=== PATIENT | female | born 2000 | race Caucasian/White ===

== ENCOUNTER 2018-10-23 09:00 | Outpatient (RCR) | payer MEDICARE, MEDICAID, SELFPAY ==
--- NOTE | 2018-10-23 09:10 | BH.SGPN.GN ---
Behaviors/Verbalizations/Mental Status: []Client alert and oriented, casual dress, hygiene tended to. Eye contact fair. Motor activity appropriate. Speech within normal limits. Affect constricted, mood anxious and depressed. Thoughts linear, logical, no signs of hallucinations or delusions. Reviewed client?s symptom tracker, no signs of suicidal ideation, plan, or intent as of today. Client Response/Progress/Benefit: []Pt was a passive participant in group discussion, attentive AEB good eye contact and nodding throughout. Pt elected to not share anything this morning, given it is pt's first day in PHP tx. Recommended to continue PHP tx to decrease anxiety, increase healthy coping, and prevent decompensation. Narrative Note: []
--- NOTE | 2018-10-23 10:15 | BH.SGPN.GN ---
Behaviors/Verbalizations/Mental Status: []Client alert and oriented, neatly dressed and groomed. Eye contact poor at the beginning and then good. Motor activity appropriate. Speech soft. Affect flat, mood anxious. Thoughts linear, logical, no signs of hallucinations or delusions. Client Response/Progress/Benefit: []Client responded well to session, taking notes and passive participant. Client nodded in agreement that viewing situations as impossible can negatively impact one?s mental health. Client appeared to connect with fixed thinking as she was raising her hand for having experienced examples of fixed thoughts. Client also raised her hand when the group discussed unrealistic expectations of self as an example of fixed thinking. Client stated that if one can challenge fixed thinking it can positively impact mental health and increase self-esteem. Client declined to share her fixed thoughts with the group, but she wrote them down. Client engaged in the group activity and the group did not complete the activity during second group. At first client did not want to participate, but then became more comfortable with peers. Client appeared to benefit from gaining awareness how fixed thinking can prevent progress and from connecting with others. No progress as it is client?s first day. However, she did show strides by challenging herself to engage in the group activity despite anxiety.
--- NOTE | 2018-10-23 11:16 | BH.SGPN.GN ---
Behaviors/Verbalizations/Mental Status: [Client maintained fair to good eye contact, casually dressed and appropriate grooming, motor activity appropriate, speech normal rate and tone, mood dysthymic, anxious, affect flat, thoughts linear, logical, no evidence of delusions or hallucinations.] Client Response/Progress/Benefit: [Client attentive and engaged in both discussion and growth mindset reflection activity, though mostly taking on an observatory role. Client providing limited input though taking notes throughout. Client worked with the group on identifying self-reflection questions and strategies to reframe fixed mindset thoughts. Participated in reflection on how fixed mindset thoughts the group experienced in the activity impacted ability to complete the task at hand. She worked with group to identify important components of developing a growth mindset to challenge such thoughts and indicated that this can help challenge unrealistic expectations and improve self-esteem, as well as reduce anxiety. Client used cognitive restructuring to reframe previously identified fixed thoughts. Client replaced fixed thought of ?I have to have perfect grades? with growth mindset thought of ?I am allowed to not be perfect and don?t need to have perfect grades to be successful?. Client benefitted from discussing strategies to promote a growth mindset in daily life. Progress noted in client ability to successfully replace fixed thoughts and participate in group despite it being her first day. Continued PHP tx to prevent decompensation, increase effective communication, and continue to work on reducing sx of anxiety.] ] Narrative Note: []
--- NOTE | 2018-10-23 15:08 | BH.MDN_ITS ---
Multi-Disciplinary Note - Note 45-min Individual Time Started:: 12:32 Date: 10/23/18 Purpose of session/treatment goals addressed:: The purpose of this session was to gather information on client's current stressors, symptoms, and treatment goals. Another goal was to build rapport and give homework. Eye Contact:: Good Motor Activity:: Appropriate Appearance:: Neat Speech:: Other - slow speech Mood:: Anxious Affect:: Congruent Thoughts:: Linear, Logical, No evidence of hallucinations/delusions noted Staff Interventions:: Therapist used active listening and open-ended questions to explore client's current stressors, symptoms, and supports. Therapist used strengths perspective to build rapport and help client identify positives and personal resilience factors. Therapist provided emotional validation and explored techniques that have helped in the past. Therapist provided psychoeducation on anxiety maintenance cycles and symptoms. Therapist assisted client in identifying overall treatment goals. Therapist gave client homework to read an article about anxiety and highlight warning signs that relate to client. Client Response:: Client responded well to session, smiling that she was able to make it through today. Client shared I didn't get sleep last night because I was anxious in regard to starting PHP today. However, client shared today wasn't as bad as I thought? I liked it. Client reported she was able to use self-talk and positive thinking to help her make it through group. Client stated her friend referred her to [facility] due to anxiety, panic, and depression. Client shared she has struggled with mental health symptoms since 2007, but recently client has felt more anxious. Client's anxiety is impacting her educational, social, and familial functioning. Client shared she is unable to drive because of her anxiety. Client reported she had to leave school because of her anxiety and unrealistic expectations of herself. Client stated she would push herself too hard to get perfect grades which resulted in high anxiety and feeling overwhelmed. Client stated, ?I?m not good at balancing things.? Client endorses ruminating thoughts, increased sleep, irritability, feeling on edge, somatic symptoms, and panic attacks. Client shared when she becomes too overwhelmed and anxious she shuts down and avoids. Client stated she has had suicidal thoughts in the past due to bullying, but she does not currently have any suicidal thoughts. Client shared she wants to work on managing her anxiety as, per client's report, I only have like two coping skills and they don't always work. Client stated she has a good support network, but client would like to improve her relationship with her parents. Client reported because of her anxiety, client has been irritable and taking things out on them. Client receptive to homework and increasing self-awareness to better manage symptoms. Risks/Concerns:: Client denies any suicidal ideation, plan, and intent as of 10/23/18. Furture oriented and has supports. Progress Toward Goals/Plan:: No progress noted yet as it is client?s first day in PHP. However, client appears motivated to engage in treatment and reported ?today was not as bad as I thought it would be.? Client shared she has a history of anxiety, panic, social phobia, and depression. Client stated her anxiety is what made client seek services at behavioral health. Client currently endorses negative thinking, panic attacks, headaches from muscle tension, increased sleep, and avoidance. Client receptive to homework. Client?s identified her treatment goals to be learning healthy coping skills, reducing anxiety and irritability, and finding ?balance? in her life. Client to continue PHP to prevent decompensation and promote mood stability. Time Stopped:: 13:15
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
--- NOTE | 2018-10-23 15:09 | BH.MTP ---
[facility] - Patient Information Program Physician:: Jarvis Chung Primary Therapist:: Anabel Mccall - Psychiatric Diagnoses Psychiatric Diagnoses:: SIMÓN F41.1; depression unspecified; social anxiety disorder; borderline personality disorder Diagnosis Code(s):: F 41.1 - Estimated LOS Estimated LOS (in weeks):: 1 Problem/Goal #1 - Problem/Goal #1 Stated Goal:: Client will reduce overall frequency, intensity, and duration of anxiety and anger to improve functioning and relationships. Description of Barriers: Client has some insight to her triggers and symptoms, but reports difficulty recognizing her early warning signs for anxiety, anger, and depression. Client connected with perfectionism traits and shared this has led to overworking herself in the past and fear of failure. Client has a few supports, but she reports often staying at home and she has anxiety about meeting new people. Client is unable to drive due to high anxiety which makes transportation a barrier at times. Client reports issues with anger and difficulty self-regulating her emotions. Client stated when she becomes too anxious she shuts down and becomes quiet. Client stated her parents are supportive, but her family has so much drama which could be an ongoing stressor. Functional Impact: Client is a 18-year-old female with a history of depression, anxiety, and social phobia who was referred to [facility] by a friend and previous [facility] participant due to anxiety symptoms. Client reported her anxiety has been worsening since 03/2018 during which time client dropped out of college. Client shared she was experiencing increased sleep, lack of energy, ruminations, lack of concentration, and frequent absences from class. Client reported she would overload myself and spend hours studying in order to get good grades which resulted in worsening mental health symptoms. At admission, client reported somatic symptoms associated with anxiety such as nausea, tension, and restlessness. Client stated her anxiety also impacts her ability to drive and do things on her own. Per client's report her anxiety reinforces depression and anger. Client stated she will get upset with her parents and lash out at them, which makes client upset with herself. Client also endorsed isolation, avoidance behaviors, and panic attacks at admission. At admission, client's symptoms were hindering her social, educational, and familial functioning as well as her ability to function at her baseline. Goal Relevant Strengths/Supports: Client is kind, intelligent, and motivated to improve her mental health. Client shared her parents can be supportive and she is open to bringing them in for a family session. Client reported she is willing to learn and is receptive to homework. Client has a few close friends that she identifies as mental health supports. Client has been in other mental health programs before, so she has some knowledge of her symptoms and triggers. Client reported she has been able to set boundaries and accomplish personal goals in the past which will help her during treatment. - Objectives Objective #1 Stated Objective: Client will identify 2-3 anxiety and anger triggers and 2 calming coping skills to use when feeling anxious or angry. Interventions: Therapist will help client increase awareness of anxiety and anger triggers and educate client on ways anxiety and anger impact overall health. Therapist will teach client various calming strategies to promote emotional regulation. Therapist will assist client in identifying warning signs and teach client techniques to reduce, remove, or accept stressors to reduce anxiety. Therapist will discuss the importance of self-care, healthy relationships, and boundaries. Discharge Criteria: Client will have accomplished this goal when can report at least 2 triggers for anxiety and anger and state using 2 calming strategies to manage symptoms. Target Date: 10/30/18 Review Date: 10/30/18 Status: open Objective #2 Stated Objective: Client will identify 2-3 cognitive distortions that lead to rumination and learn 2-3 ways to manage these thoughts to better manage anxiety and stress. Interventions: Therapist will provide education on the most common cognitive distortions and teach client the connection between thoughts, emotions, and feelings. Therapist will assist client in identifying, challenging, and replacing dysfunctional thoughts with positive, more realistic thoughts. Therapist will use CBT and DBT techniques to help client gain awareness of thinking errors and learn how to more effectively handle negative thoughts. Discharge Criteria: Client will have accomplished this goal when can identify at least 2 cognitive distortions and at least 2 coping skills to manage negative thoughts. Target Date: 10/30/18 Review Date: 10/30/18 Status: open Problem/Goal #2 - Problem/Goal #2 Stated Goal:: Client will reduce social anxiety and increase communication skills. Description of Barriers: Client has some insight to her triggers and symptoms, but reports difficulty recognizing her early warning signs for anxiety, anger, and depression. Client connected with perfectionism traits and shared this has led to overworking herself in the past and fear of failure. Client has a few supports, but she reports often staying at home and she has anxiety about meeting new people. Client is unable to drive due to high anxiety which makes transportation a barrier at times. Client reports issues with anger and difficulty self-regulating her emotions. Client stated when she becomes too anxious she shuts down and becomes quiet. Client stated her parents are supportive, but her family has so much drama which could be an ongoing stressor. Functional Impact: Client is a 18-year-old female with a history of depression, anxiety, and social phobia who was referred to [facility] by a friend and previous [facility] participant due to anxiety symptoms. Client reported her anxiety has been worsening since 03/2018 during which time client dropped out of college. Client shared she was experiencing increased sleep, lack of energy, ruminations, lack of concentration, and frequent absences from class. Client reported she would overload myself and spend hours studying in order to get good grades which resulted in worsening mental health symptoms. At admission, client reported somatic symptoms associated with anxiety such as nausea, tension, and restlessness. Client stated her anxiety also impacts her ability to drive and do things on her own. Per client's report her anxiety reinforces depression and anger. Client stated she will get upset with her parents and lash out at them, which makes client upset with herself. Client also endorsed isolation, avoidance behaviors, and panic attacks at admission. At admission, client's symptoms were hindering her social, educational, and familial functioning as well as her ability to function at her baseline. Goal Relevant Strengths/Supports: Client is kind, intelligent, and motivated to improve her mental health. Client shared her parents can be supportive and she is open to bringing them in for a family session. Client reported she is willing to learn and is receptive to homework. Client has a few close friends that she identifies as mental health supports. Client has been in other mental health programs before, so she has some knowledge of her symptoms and triggers. Client reported she has been able to set boundaries and accomplish personal goals in the past which will help her during treatment. - Objectives Objective #1 Stated Objective: Client will learn 2-3 strategies to manage anxiety and practice engaging in a conversation with one new person a day. Interventions: Therapist will teach client various calming coping skills to help client self-regulate when experiencing anxiety. Therapist will provide psychoeducation on anxiety and help client see the benefits of engaging in anxiety-provoking situations rather than avoiding them. Therapist will encourage client to have a family session to increase communication. Therapist will help client challenge negative thoughts and learn how to express needs. Discharge Criteria: Client will have accomplished this goal when she can report engaging in a conversation with one new person per day and practicing at coping skills daily. Target Date: 10/30/18 Review Date: 10/30/18 Status: open
--- NOTE | 2018-10-24 09:02 | BH.SGPN.GN ---
Behaviors/Verbalizations/Mental Status: []Client alert and oriented, casually dressed and groomed. Eye contact good. Motor activity appropriate. Speech soft and slow. Affect congruent, mood anxious but relieved. Thoughts linear, logical, no signs of hallucinations or delusions. Reviewed client?s symptom tracker, no risk for suicidal ideation, plan, or intent as of 10/24/18. Client Response/Progress/Benefit: []Client responded well to session, engaged in discussion. Client reports feeling ?a little anxious, but relieved? today as client was able to overcome high anxiety this morning and yesterday. Client shared yesterday was her first day and she was ?terrified? but after being in group she realized that it was not scary and that she enjoyed it. Client?s second mental health win is that she is taking a social media ?detox? while she is in the program. Client shared belief this will help her focus on herself and avoid unnecessary stressors. Client?s current stressor is that she had high anxiety yesterday and this morning about her transportation due to having a bad experience in the past. Client shared she used coloring, journaling, and deep breathing to manage her anxiety and was able to calm herself down. 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 Client appeared to benefit from connecting with peers and reflecting on use of healthy coping skills. Client?s second day in PHP and she appears to be utilizing skills discussed in group and individual sessions. Client to continue PHP to prevent decompensation and reduce anxiety.
--- NOTE | 2018-10-24 11:16 | BH.SGPN.GN ---
Behaviors/Verbalizations/Mental Status: [Client alert and oriented, casual dress, hygiene appropriate. Eye contact fair to good. Motor activity WNL. Speech appropriate rate/tone. Affect flat, mood dysthymic, anxious. Thoughts linear, logical, no signs of hallucinations or delusions. ] Client Response/Progress/Benefit: [Pt engaged throughout session AEB participating in activity, listening to peers suggestions, and providing direction to partner. Client worked collaboratively with group during activity in which group members had to identify positive strategies to overcome the various barriers/obstacles that hindered progress. Client identified personal barriers as: negative outlook, lack of healthy coping skills, and constant worry. Client shared a strategy for overcoming barrier of isolation as setting small goals to increase socialization and avoid triggers. Client shared the barrier she is going to work on is reducing negativity beginning to keep a thought log. Client seemed to benefit from increased repertoire of strategies to help overcome barriers to progress. Recommended continued tx to prevent decompensation, improve healthy coping, and decrease depressive sx.] Narrative Note: []
--- NOTE | 2018-10-24 15:00 | BH.MDN ---
Multi-Disciplinary Note - Note 45-min Individual Time Started:: 12:15 Date: 10/24/18 Purpose of session/treatment goals addressed:: The purpose of this session was to increase awareness of warning signs, symptoms, and triggers for anxiety. Another goal was to learn coping skills to manage emotions and thoughts associated with anxiety. Other topics included: psychoeducation and cognitive distortions. Eye Contact:: Fair Motor Activity:: Appropriate Appearance:: Casual Speech:: Soft, Other - slowed Mood:: Euthymic Affect:: Constricted Thoughts:: Linear, Logical, No evidence of hallucinations/delusions noted Staff Interventions:: Therapist used active listening and open-ended questions to address current stressors, experience with homework, and use of coping skills. Therapist provided psychoeducation on anxiety and used a worksheet to help client increase awareness of warning signs and triggers. Therapist used a scaling tool to help client gain insight to the different levels of intensity in which she feels anxiety and the warning signs for each. Therapist taught client coping skills to use at each level. Therapist taught client about the common cognitive distortions and how thoughts impact mood and behavior. Therapist used strengths perspective to empower client on her use of coping skills. Therapist gave client homework to start a thought log. Client Response:: Client responded well to session, open to meeting with therapist. Client shared she read the article on anxiety and stated it made her feel better because I didn't know some of those things were related to my anxiety. Client engaged in discussion of warning signs and triggers for anxiety. At first client struggled to identify warning signs, but with further assistance and exploration, client was able to. Some of client?s warning signs included feeling sick, sweating, tense muscles, and negative thinking. Client connected with the ABCs (affect, behavior, cognition) of anxiety and used the scaling tool to differentiate between levels of intensity of anxiety. Client able to identify her baseline, moderate, and high anxiety levels. Client receptive to learning and practicing calming strategies. Client shared breathing, 5-senses, and distractions are helpful. Client was interested in learning about thought logs and challenging negative thoughts. Client connected with the different types of distortions and recognized that her thinking patterns directly impact her mood and behaviors. Client shared she often has a lot of perfectionistic type thinking and expectations for herself, which triggers anxiety. Client appeared to connect with maintenance cycles and was able to reflect on a time when she got stuck in the anxiety/perfection maintenance cycle. Client shared ?I get anxious so I overload myself with work and then I feel more anxious.? Client willing to complete a thought log for homework. Risks/Concerns:: Client denies any suicidal ideation, plan, and intent as of 10/24/18. Client continues to be future oriented. Progress Toward Goals/Plan:: Client's second day in PHP and she continues to show motivation to improve her mental health. Client reported this morning she was able to use calming coping skills to manage her anxiety symptoms. Client is highly engaged in group and individual sessions and she is receptive to feedback and homework. Client learned about personal warning signs today, but she struggled to identify them without elicitation. Client continues to endorse perfectionistic core beliefs, anxiety, and irritability. Client would like to have a family session next week. Client to continue PHP to prevent decompensation, increase self-awareness, and reduce anxiety. Time Stopped:: 13:06
--- NOTE | 2018-10-25 09:04 | BH.SGPN.GN ---
Behaviors/Verbalizations/Mental Status: [Eye contact is good. Motor activity is appropriate. Appearance is casual. Speech is an appropriate rate and tone. Mood is anxious, depressed. Affect is flat. Thoughts are linear and logical. No evidence of psychosis. Reviewed daily check in sheet and no reports of suicidal ideations or intent.] Client Response/Progress/Benefit: [Pt was a semi-active participant in group discussion, providing limit input throughout, though attentive AEB good eye contact and nodding throughout. Emotion for today is tired. Reports initially being anxious this morning due to a misunderstanding about her transportation and fears she would not have a ride to group. Pt identified use of catastrophizing. Mental health justin identified as beginning her thought challenge log and noted it was helpful last night. Additional win is spending less time isolating in her room following group on previous date. Pt benefited from supportive and structured group environment. Recommended to continue PHP tx to increase awareness, prevent decompensation, and continue to improve positive coping and anxiety management.] Narrative Note: []
--- NOTE | 2018-10-25 10:15 | BH.SGPN.GN ---
Behaviors/Verbalizations/Mental Status: [] Eye contact is good. Motor activity is appropriate. Appearance is casual. Speech is Appropriate. Mood is anxious. Affect is flat. Thoughts are linear and logical. No evidence of psychosis. Client Response/Progress/Benefit: [] Pt was an active participant in group discussion and activity. Worked together with the group to define conflict which they reported was; two opposing forces, wanting two different outcomes, two different perspectives on same situation, misunderstanding, internal struggles with decisions or emotions, feeling torn, and balancing. Described difference between external conflict and internal conflict. Discussed the benefits of conflict in progressing in relationships and mental health. Pt worked with group to identify barriers to over conflict which included; strong belief in one's perspective or view, miscommunication, one's emotional mood, fear, ramifications, consequences, and negative distortions. Attentive during psycho-education on different types of conflict styles. Pt reports that her conflict style is avoiding and accommodating which increased her anxiety and depressive symptoms. Benefited as she was able to identify and define conflict as well as increase awareness of how conflict style impacts her mental health. Will continue in [facility] to maintain safety, stabilize anxiety, and improve daily functioning. Narrative Note: []
--- NOTE | 2018-10-25 10:15 | BH.SGPN.GN ---
Behaviors/Verbalizations/Mental Status: []Client alert and oriented, neatly dressed and groomed. Eye contact good. Motor activity appropriate. Speech within normal limits. Affect constricted, mood anxious. Thoughts linear, logical, no signs of hallucinations or delusions. Client Response/Progress/Benefit: []Client responded well to session, engaged in discussion and taking notes. Client further processed her conflict resolution style. Client reported she tends to either avoid conflict or accommodate to other people?s wants. Client shared she wants to be more collaborative because her current style leaves client feeling more anxious and depressed. Client was encouraged to practice being collaborative during the active. Client was able to practice asserting her opinion and the group was receptive. Client helped the group identify things that positively and negatively impact conflict resolution. Client agreed with group that not listening to different ideas and shutting down both negatively impact conflict resolution. Client helped the group identify strategies to better manage conflict such as communicating clearly and challenging negative thoughts. Client appeared to benefit from learning conflict resolution strategies and practicing in the moment. Progress noted as client reports increased self-awareness since starting PHP. Client to continue PHP to reduce anxiety and negative thinking patterns.
--- NOTE | 2018-10-26 09:10 | BH.SGPN.GN ---
Behaviors/Verbalizations/Mental Status: [] Eye contact is good. Motor activity is appropriate. Appearance is casual. Speech is Appropriate. Mood is anxious. Affect is congruent. Thoughts are linear and logical. No evidence of psychosis. Reviewed daily check in sheet and no reports of suicidal ideations or intent. Client Response/Progress/Benefit: [] Pt participated in group discussion. Emotion for today is stressed. Shared that after group session on conflict yesterday she actually reached out to her adoptive brother and friend. Reports that she felt more prepared if conflict or an argument happened. Reports that she was pleasantly surprised that both interaction went well. This improved her overall mood and confidence in interactions. Actually made plan to attend a couple concerts with her friend. Reported an anxiety attack this AM in regards to a mundane stressor and a cognitive distortion. She was able to identify her thinking errors and believes that this lessened the intensity of the panic attack. Group provided support, praise, feedback, and encouragement which was helpful. Will continue in PHP to improve daily functioning to return to work/school, prevent decompensation, and increase coping skills. Narrative Note: []
--- NOTE | 2018-10-26 10:25 | BH.SGPN.GN ---
Behaviors/Verbalizations/Mental Status: [Pt eye contact fair to good, casually dressed, motor activity appropriate, speech normal rate and tone, mood depressed and anxious, constricted affect, thoughts linear and intact, no evidence of delusions or hallucinations.] Client Response/Progress/Benefit: [Pt receptive of session and engaged throughout AEB actively taking notes throughout group discussion. Did well to participate in the activity and listened as the group reflected upon group topic of resilience. Pt provided some input to discussion. Pt appeared to connect with various definitions of resilience provided by the group as well as ideas for how resilience can have positive impacts mental health and wellness. Pt engaged in small group discussion about the various strategies that can help strengthen one's resilience and provided examples of ways resilience can boost self-confidence. Pt indicated that keeping a hopeful outlook is an important component of resilience and indicated that this can be particularly difficult for her when confronted with setbacks. Pt seemed to benefit from increased awareness of various components that can contribute to increased resilience. Progress minimal due to limited input provided though pt appears to be gaining insight into her own mental health. Continued IOP recommended to prevent decompensation, increase insight, and promote healthy skill application.] Narrative Note: []
--- NOTE | 2018-10-27 10:18 | BH.SGPN.GN ---
Behaviors/Verbalizations/Mental Status: []Client alert and oriented, casually dressed and well groomed. Eye contact fair. Motor activity appropriate. Speech within normal limits. Affect constricted, mood anxious. Thoughts linear, logical, no signs of hallucinations or delusions. Client Response/Progress/Benefit: []Client responded well to session, engaged during activity, but quiet during discussion. Client did not verbally engage in discussion of how different forces in life impact mental health, but she took noted and nodded frequently. Client nodded in agreement that achieving mental wellness is about finding the balance between positive and negative forces. Client agreed with peers that a positive force can be therapy and a negative force can be negative thinking. Client was passive during the activity, but she was receptive to feedback and able to manage her anxiety. Client appeared to benefit from practicing in the moment coping skills to manage anxiety and connect with peers. Progress noted as client reports generalization of healthy coping skills, but she continues to struggle with negative thinking that reinforces anxiety and avoidance.
--- NOTE | 2018-10-27 11:15 | BH.SGPN.GN ---
Behaviors/Verbalizations/Mental Status: [Pt eye contact fair to good - at times looking down or away, casually dressed, motor activity appropriate, speech normal rate and tone, mood dysthymic and anxious, flat affect, thoughts linear and intact, no evidence of delusions or hallucinations.] Client Response/Progress/Benefit: [Client receptive of session, listened attentively to peers and providing some ideas to discussion. Client identified positive forces that aid in progressing toward mental health goals include: being a good listener, cares about future, caring, and tech savvy. Client indicated negative forces that prevent progress include: self-sabotage, poor communication, lack of motivation, and anxiety. Client stated wanting to focus on decreasing anxiety by continuing to develop and apply healthy coping skills. Client seemed to benefit from increased awareness of personal positive and negative forces in life and impact they have on mental health and wellness. Client to continue IOP level of care to decrease anxiety, increase healthy coping and prevent decompensation.] Narrative Note: []
--- NOTE | 2018-10-27 11:49 | PCM.HP.BLA ---
History and Physical Date of Admission: 10/23/18 Chief Complaint: The patient is a 18-year old female who is beginning treatment in the partial hospitalization program at [facility]. She has a long history of problems with depression and anxiety. She also has borderline personality features. History of Present Illness: The patient states that she has had problems with depression for the past 10 years. Depression tends to come in episodes and lasts several days at a time. She said her last depression occurred about a month ago. Her mood is currently fairly good. The patient has had problems with anxiety for about the past 10 years. She has always been a big worrier and tends to worry about many different things. Her anxiety and worry worsened when she was in college recently. She admits that she has perfectionistic tendencies. She had expectations that she would be a 4.0 student., She started to get a B in a class with a professor and catastrophized. She then dropped out of school. Another area of worry for her is financial difficulties. She said that when she was younger her father lost his job and the family lost their home. They went into foreclosure. This had a big impact on how she views the world. The patient continues to be highly anxious. She sometimes develops panic attacks which cause her to have nausea, vomiting and sometimes blackouts. She said that at times becomes unresponsive (during her panic attacks) and her family has taken her to an emergency room. Workups including EEG and neuropsych testing have shown no organic difficulties. Her blackouts likely represent dissociative episodes associated with her anxiety. It is noteworthy that the patient also does not drive. She becomes too anxious and stressed out while driving to the point where her arm starts hurting and she is unable to focus on driving. The patient further reports problems with social anxiety. Very fearful of meeting new people, she worries that they will hardwood faller her unfavorably. The patient further endorses symptoms consistent with a borderline personality disorder. She has lots of ups and downs of her mood to the point where her parents comment that she seems like a different person sometimes. She has had significant anger problems for many years. She yells and screams and has thrown things. She also once put a hole in a wall. She often hits the wall. These anger episodes are caused by family interactions. She is triggered to anger when her mother calls her defiant. Having abandonment fears. She sometimes feels empty inside. She has a history of problems with her identity. She has had relationship difficulties with her family and with a romantic partner. Impulsivity has been a problem. She has a history of spending money impulsively and also eating emotionally and impulsively when feeling stressed out. He has significant issues with eating and her weight, and this causes low self-esteem. Past Psychiatric History: She reports 2 psychiatric admissions to [facility] in 2013 and 2016. Prior to her 2014 admission she was being bullied by people online who were calling her fat and ugly. They also said, why do not you kill yourself. She subsequently overdosed and was admitted to the hospital. He was again admitted in 2016 because of problems. She reports 1 prior overdose in 2013 as per above. Denies a history of cutting herself. She first received mental treatment at age 12 for depression and anxiety. She has been in counseling through the [facility] since 2013. Since have been prescribed by a nurse practitioner or recently by her primary care doctor. She has been tried on a variety of medicines over the years. Current Psychiatric Medications: BuSpar 15 mg twice daily, Seroquel 50 mg twice daily Prozac 30 mg daily Medical History: It is obese. He has chronic shoulder pain treated with Motrin and cyclobenzaprine. She has frequent migraine headaches treated with topiramate. She also complains of excessive sleepiness and tiredness for a number of years. She sleeps up to 16 hours/day. She also snores and talks in her sleep. Allergies: Z-Foreign Family Psychiatric History: The patient said her father was diagnosed with having a conversion disorder. A cousin supposedly has bipolar and schizophrenia. An aunt has anger issues and is edge. Personal/Social History: Her parents remain and the patient is living with them. She has never lived outside the home. Her father does not work and the family depends on the mother for income. She describes her mother as somewhat controlling and critical. She has 2 half-siblings who are in their 30s. The patient states that she has been home schooled since she was a young child. She is not exactly sure why. She said that her parents did try to for opportunities for socialization, including being on a bowling league. 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 However, people started to bully her online and she dropped out of this project. He recently left college during her second semester. She was driving myself crazy by expecting her grades to be perfect. She also reported having test anxiety. The patient has never worked. She has been receiving [employer] benefits since 2016 for anxiety. Does not drive. She lives with her parents. The patient has never and has no children. She is not currently involved in an intimate relationship. She has been in several goins relationships and is exclusively goins. One of her relationships was very beau. She only has 2 friends in her life. There is no history of drug or alcohol problems. Review of Systems: Psychiatry: Significant depression, but continuing problems with anger, as per HPI. The patient continues to experience high anxiety. She also still has panic attacks. She is not suicidal. There is no psychosis. She is cognitively intact. Constitutional: He is obese and her weight has been steady. Her energy level is poor. She sleeps excessively as per the medical history. GI: She experiences nausea and vomiting at times associated with anxiety. All other systems reviewed and are negative, other than as per the medical history above. Examination: Patient presents as a socially awkward woman of obese build who is casually dressed and neatly groomed. She demonstrates awkward social skills. Vital signs: Height 5 foot 6 inches, weight 259 pounds, respirations 15. Her speech is fluent and spontaneous. Her language is intact. Musculoskeletal: Chronic shoulder pain. Her judgment and insight are fair. She is alert and oriented x3. Her affect is somewhat blunted but appropriate. Her recent and remote memory are intact. She demonstrates normal attention span and concentration. She has normal thought processes and abstract reasoning. Her associations are intact. There are no hallucinations or delusions and she is not suicidal. She demonstrates normal age-appropriate fund of knowledge. Mental Status Examination: The patient presents as a socially awkward woman of obese build who has good grooming. Her thoughts are logical and coherent. There is no significant depression she has frequent episodes of anger. She is not suicidal. There is no psychosis. She is cognitively intact. Diagnoses: [] [place] I: Generalized anxiety disorder; depressive disorder unspecified; social anxiety disorder; Likely unspecified dissociative disorder; sleep disorder unspecified; rule out sleep apnea [place] II: Borderline personality disorder [place] III: Obesity, migraine headaches, chronic shoulder pain Plan: I am continuing treatment with BuSpar and topiramate. I am stopping Seroquel and Prozac. I am starting treatment with Celexa 10 mg daily, Latuda 20 mg daily and propranolol 10 mg twice daily. We will consider requesting a sleep study. She will participate in the partial hospitalization program. I will see her again next week.
--- NOTE | 2018-10-27 12:25 | HP.PCM_ITS ---
History and Physical Date of Admission: 10/23/18 Chief Complaint: The patient is a 18-year old female who is beginning treatment in the partial hospitalization program at [facility]. She has a long history of problems with depression and anxiety. She also has borderline personality features. History of Present Illness: The patient states that she has had problems with depression for the past 10 years. Depression tends to come in episodes and lasts several days at a time. She said her last depression occurred about a month ago. Her mood is currently fairly good. The patient has had problems with anxiety for about the past 10 years. She has always been a big worrier and tends to worry about many different things. Her anxiety and worry worsened when she was in college recently. She admits that she has perfectionistic tendencies. She had expectations that she would be a 4.0 student., She started to get a B in a class with a professor and catastrophized. She then dropped out of school. Another area of worry for her is financial difficulties. She said that when she was younger her father lost h is job and the family lost their home. They went into foreclosure. This had a big impact on how she views the world. The patient continues to be highly anxious. She sometimes develops panic attacks which cause her to have nausea, vomiting and sometimes blackouts. She said that at times becomes unresponsive (during her panic attacks) and her family has taken her to an emergency room. Workups including EEG and neuropsych testing have shown no organic difficulties. Her blackouts likely represent dissociative episodes associated with her anxiety. It is noteworthy that the patient also does not drive. She becomes too anxious and stressed out while driving to the point where her arm starts hurting and she is unable to focus on driving. The patient further reports problems with social anxiety. Very fearful of meeting new people, she worries that they will saxophone teacher her unfavorably. The patient further endorses symptoms consistent with a borderline personality disorder. She has lots of ups and downs of her mood to the point where her parents comment that she seems like a different person sometimes. She has had significant anger problems for many years. She yells and screams and has thrown things. She also once put a hole in a wall. She often hits the wall. These anger episodes are caused by family interactions. She is triggered to anger when her mother calls her defiant. Having abandonment fears. She sometimes feels empty inside. She has a history of problems with her identity. She has had relationship difficulties with her family and with a romantic partner. Impulsivity has been a problem. She has a history of spending money impulsively and also eating emotionally and impulsively when feeling stressed out. He has significant issues with eating and her weight, and this causes low self-esteem. Past Psychiatric History: She reports 2 psychiatric admissions to [facility] in 2013 and 2016. Prior to her 2014 admission she was being bullied by people online who were calling her fat and ugly. They also said, why do not you kill yourself. She subsequently overdosed and was admitted to the hospital. He was again admitted in 2016 because of problems. She reports 1 prior overdose in 2013 as per above. Denies a history of cutting herself. She first received mental treatment at age 12 for depression and anxiety. She has been in counseling through the [facility] since 2013. Since have been prescribed by a nurse practitioner or recently by her primary care doctor. She has been tried on a variety of medicines over the years. Current Psychiatric Medications: BuSpar 15 mg twice daily, Seroquel 50 mg twice daily Prozac 30 mg daily Medical History: It is obese. He has chronic shoulder pain treated with Motrin and cyclobenzaprine. She has frequent migraine headaches treated with topiramate. She also complains of excessive sleepiness and tiredness for a number of years. She sleeps up to 16 hours/day. She also snores and talks in her sleep. Allergies: Z-Foreign Family Psychiatric History: The patient said her father was diagnosed with having a conversion disorder. A cousin supposedly has bipolar and sc hizophrenia. An aunt has anger issues and is edge. Personal/Social History: Her parents remain and the patient is living with them. She has never lived outside the home. Her father does not work and the family depends on the mother for income. She describes her mother as somewhat controlling and critical. She has 2 half-siblings who are in their 30s. The patient states that she has been home schooled since she was a young child. She is not exactly sure why. She said that her parents did try to for opportunities for socialization, including being on a bowling league. 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 However, people started to bully her online and she dropped out of this project. He recently left college during her second semester. She was driving myself crazy by expecting her grades to be perfect. She also reported having test anxiety. The patient has never worked. She has been receiving [email or web address] benefits since 2016 for anxiety. Does not drive. She lives with her parents. The patient has never and has no children. She is not currently involved in an intimate relationship. She has been in several goins relationships and is exclusively goins. One of her relationships was very beau. She only has 2 friends in her life. There is no history of drug or alcohol problems. Review of Systems: Psychiatry: Significant depression, but continuing problems with anger, as per HPI. The patient continues to experience high anxiety. She also still has panic attacks. She is not suicidal. There is no psychosis. She is cognitively intact. Constitutional: He is obese and her weight has been steady. Her energy level is poor. She sleeps excessively as per the medical history. GI: She experiences nausea and vomiting at times associated with anxiety. All other systems reviewed and are negative, other than as per the medical history above. Examination: Patient presents as a socially awkward woman of obese build who is casually dressed and neatly groomed. She demonstrates awkward social skills. Vital signs: Height 5 foot 6 inches, weight 259 pounds, respirations 15. Her speech is fluent and spontaneous. Her language is intact. Musculoskeletal: Chronic shoulder pain. Her judgment and insight are fair. She is alert and oriented x3. Her affect is somewhat blunted but appropriate. Her recent and remote memory are intact. She demonstrates normal attention span and concentration. She has normal thought processes and abstract reasoning. Her associations are intact. There are no hallucinations or delusions and she is not suicidal. She demonstrates normal age-appropriate fund of knowledge. Mental Status Examination: The patient presents as a socially awkward woman of obese build who has good grooming. Her thoughts are logical and coherent. There is no significant depression she has frequent episodes of anger. She is not suicidal. There is no psychosis. She is cognitively intact. Diagnoses: [] [place] I: Generalized anxiety disorder; depressive disorder unspecified; social anxiety disorder; Likely unspecified dissociative disorder; sleep disorder unspecified; rule out sleep apnea [place] II: Borderline personality disorder [place] III: Obesity, migraine headaches, chronic shoulder pain Plan: I am continuing treatment with BuSpar and topiramate. I am stopping Seroquel and Prozac. I am starting treatment with Celexa 10 mg daily, Latuda 20 mg daily and propranolol 10 mg twice daily. We will consider requesting a sleep study. She will participate in the partial hospitalization program. I wi ll see her again next week.
--- NOTE | 2018-10-27 12:26 | BH.DR.ITP ---
Initial Treatment Plan - Patient Information Visit Information: ADMISSION DATE: 10/23/18 EXPECTED LOS: 4-6 weeks Diagnoses:: SIMÓN; depression unspecified; social anxiety disorder; borderline personality disorder - Problems/Symptoms Problem #1:: anxiety Symptom:: high anxiety, panic attacks; problems managing stress Problem #2:: social anxiety disorder Symptom:: problems initiatig and maintaing social relationships Problem #3:: borderline personality disorder Symptom:: problems with anger, moodiness, impulsivity
--- NOTE | 2018-10-27 15:34 | BH.MDN_ITS ---
Multi-Disciplinary Note - Note 30-min Individual Time Started:: 12:25 Date: 10/27/18 Purpose of session/treatment goals addressed:: The purpose of this session was to address current symptoms, stressors, and use of coping skills. Other goals were to increase self-awareness, learn coping skills, and identify client's hopes for her family session. Eye Contact:: Good Motor Activity:: Slowed Appearance:: Casual Speech:: Soft, Other - slow Mood:: Euthymic Affect:: Constricted Thoughts:: Linear, Logical, No evidence of hallucinations/delusions noted Staff Interventions:: Therapist used active listening and open-ended questions to explore client's current symptoms, stressors, and expectations for family session next week. Therapist reviewed homework and helped client evaluate helpfulness of coping skills learned this week. Therapist used strengths p erspective to empower client on implementation of strategies. Therapist helped client identify triggers for anger and taught client various coping skills to manage anger. Therapist gave client homework to read over maintenance cycles and practice healthy coping skills. Client Response:: Client responded well to session, open to meeting with therapist. Client stated she met with the program psychiatrist today and I actually talked about my anger issues. Client reported her medications were changed and she is hopeful. Client reflected on use of coping skills this week and shared she was able to use the 5-senses and thought challenging to manage anxiety. Client stated she would like to work more on managing her anger and was receptive to identifying warning signs. Client's warning signs included clenching her fists, tension, and increased anxiety. Client's triggers included being called defiant and arguments with her parents. Client learned different techniques to manage anger. Client reported belief she could practice taking time to de-escalate and breathe. Client identified her goals for family session next week. Client shared she wants to improve communication, following through with things at home, and help her parents gain more awareness of what helps client manage symptoms and what does not. Risks/Concerns:: Client denies any suicidal ideation, plan, and intent as of 10/27/18. Progress Toward Goals/Plan:: Client is demonstrating progress towards coping skills as evidenced by her report of practicing calming and thought challenging strategies throughout the week. Client also recognizes progress in her increased comfort in the group setting and ability to talk about my anger issues. Client continues to be highly motivated to improve her mental health and has been consistent with completing homework. Client continues to endorse anxiety, anger and irritability, negative thinking, avoidance behaviors, and sleep issues. Client to continue PHP to promote mood stability, monitor medication changes, and increase use of healthy coping skills. Time Stopped:: 12:57
--- NOTE | 2018-10-30 09:05 | BH.SGPN.GN ---
Behaviors/Verbalizations/Mental Status: [] Eye contact is good. Motor activity is appropriate. Appearance is casual. Speech is Appropriate. Mood is anxious. Affect is congruent. Thoughts are linear and logical. No evidence of psychosis. Reviewed daily check in sheet and no reports of suicidal ideations or intent. Client Response/Progress/Benefit: []L Limited participation in group. Emotion for today is anxious. Shared with the group that she did not isolate as much this weekend. She stated that she was asked out on a date and agreed. Reports that she is excited however anxious. Reports more confidence in herself in social situations than last week as evidenced by agreeing to date and going to concerts with friends. Progress noted per pt report. Will continue in PHP to stabilize anxiety, decrease daily panic attacks, and improve functioning to return to work/school Narrative Note: []
--- NOTE | 2018-10-30 11:20 | BH.SGPN.GN ---
Behaviors/Verbalizations/Mental Status: []Client alert and oriented, neatly dressed and groomed. Eye contact good. Motor activity appropriate. Speech within normal limits. Affect constricted, mood anxious. Thoughts linear, logical, no signs of hallucinations or delusions. Client Response/Progress/Benefit: []Client responded well to session, active participant. Client participated in the activity and helped the group process challenges associated with making change. During the activity client became upset with herself and embarrassed when she made a mistake, but she was quick to move past other?s mistakes. The group connected this to the double-standards they hold themselves to when trying to make positive changes and struggling. Client reported teamwork, communicating effectively, and thinking outside the box helped the group adapt to change. Client identified a change she would like to make to improve her mental health. Client?s goal was to ?find better social supports.? Client shared she has few close friends and would like to isolate less. Client appeared to benefit from overcoming challenges associated with making change and from identifying a change that would improve her mental health. Progress noted as client reports improved ability to recognize warning signs and use coping skills. Client to continue PHP to increase mood stability and emotional regulation.
--- NOTE | 2018-10-30 14:38 | BH.MDN ---
Multi-Disciplinary Note - Note Family Time Started:: 12:25 Date: 10/30/18 Purpose of session/treatment goals addressed:: The purpose of this session was to engage client's parents in client's treatment by providing psychoeducation, addressing barriers, and communicating client's support needs. Another purpose was to set a goal as a family to promote ongoing progress. Eye Contact:: Fair Motor Activity:: Appropriate Appearance:: Neat Speech:: Appropriate, Soft Mood:: Euthymic, Anxious Affect:: Congruent Thoughts:: Linear, Logical, No evidence of hallucinations/delusions noted Staff Interventions:: Therapist used open-ended questions and active listening to gather information on client's, and her parent?s, expectations for the session. Therapist provided psychoeducation on anxiety, maintenance cycles, and anger. Therapist advocated for client by reflecting on gains made in IOP and giving client a platform to verbalize her mental health growth. Therapist helped the family create SMART goals and identify strategies that promote opposite action. Therapist brought awareness to things that may make client?s anger, anxiety, and symptoms worse. Therapist reviewed communication and de-escalation strategies. Therapist encouraged ongoing communication and practice of healthy coping skills. Client Response:: Client and her parents responded well to session, open to meeting with therapist and communicating with each other. Client and her parents started session by reflecting on client's progress in the week she has started PHP. The family pointed out progress in client's communication, reduced anxiety, and comfort in a group setting. Client's parents shared client continues to struggle with following through with things at home and managing her anger. Client's parents also stated that client continues to isolate, although it is of reduced intensity. The family appeared to connect with maintenance cycles and recognized anxiety maintenance cycles client has been stuck in, especially with school. Client shared her warning signs and triggers for anxiety and anger with her parents. Client also told her parents what helps her cope with these emotions and what makes it worse. Client's parents provided insight to their perspective and helped client gain awareness to how her isolation and anger impacts the family. The family was receptive to creating goals to improve emotional regulation, reduce isolation, and promote a positive family relationship. Client receptive to working on opposite action, reducing naps, and taking a few minutes to cool off when experiencing an anger trigger. Risks/Concerns:: Client denies suicidal ideation, plan, and intent as of 10/30/18. Progress Toward Goals/Plan:: Client and her parents are both seeing progress towards treatment goals since starting PHP. Client's parents reported they are seeing improvements in client's implementation of coping skills, stepping out of her comfort zone, and reduced anxiety. Client shared she feels less anxious and has been trying to manage her emotions better. Client continues to endorse anxiety, negative thinking, and avoidant behaviors. Client's parents reported client can continue to reduce anger and improve consistency in following through with things. Client to continue PHP to promote mood stability and prevent decompensation. Therapist to follow up with treatment team regarding medication questions. Time Stopped:: 13:25
--- NOTE | 2018-10-31 09:05 | BH.SGPN.GN ---
Behaviors/Verbalizations/Mental Status: []Client alert and oriented, casually dressed, hygiene good. Eye contact good. Motor activity appropriate. Speech within normal limits. Affect congruent, mood euthymic. Thoughts linear, logical, no signs of hallucinations or delusions. Reviewed client?s symptom tracker, no risk for suicidal ideation, plan, or intent as of 10/31/18. Client Response/Progress/Benefit: []Client responded well to session, alert and engaged during session. Client reports feeling ?satisfied and empowered? today as she is learning to stand up for herself. Client identified her current mental health ?wins? to be advocating for herself when faced with transportation issues and having a positive family session. Client stated, ?I told the subway train driver I didn?t want to ride with her if she was going to be on the phone.? Client reported after the family session, client shared she and her parents are communicating better and client is following through with things better now. Client?s current stressor is ?I got asked out on a date and got ghosted.? Client stated ?ghosted? means stood up by her date. The group provided supportive feedback to client and helped her challenge negative thinking. After receiving feedback, client shared ?it probably has nothing to do with me.? Client appeared to benefit from reflecting on gains and challenging negative thoughts. Progress noted as client reports generalizing healthy skills. However, client can continue to reduce anxiety and improve relationships.
--- NOTE | 2018-10-31 10:15 | BH.SGPN.GN ---
Behaviors/Verbalizations/Mental Status: [] Eye contact is good. Motor activity is appropriate. Appearance is casual. Speech is Appropriate. Mood is anxious. Affect is flat. Thoughts are linear and logical. No evidence of psychosis. Client Response/Progress/Benefit: [] Pt was an active participant in group activity however provided limited feedback during group discussion. Attentive and did contribute. Along with group members pt worked on defining problem. Group identified that a problem is a difficulty matter requiring a solution and something that prevents them from reaching a goal. Attentive during psycho-education on components of a problem which included goals and barriers. Group identified common barriers to problem solving which included; distorted thoughts, toxic relationships, lack of resources, and other limitations. Attentive during psycho-education on strategies for problem-solving through the ABCDE method; which is Asking what the problem is; Brainstorming solutions, Choosing a solution, Doing it, and Evaluate. Group worked through some examples of problems using the ABCDE method. Benefited from identifying barriers to problem solving and learning new strategies to problem solve effectively. Will continue in PHP to improve daily functioning, decrease daily panic attacks, and prevent decompensation. Narrative Note: []
--- NOTE | 2018-10-31 11:15 | BH.SGPN.GN ---
Behaviors/Verbalizations/Mental Status: [Eye contact is fair to good. Motor activity is appropriate. Appearance is casual. Speech is Appropriate - monotone. Mood is anxious, euthymic. Affect is congruent with mood. Thoughts are linear and logical. No evidence of psychosis.] Client Response/Progress/Benefit: [Pt was an active participant in group activity and discussion, attentively listened as group processed activity completed in previous session. Pt completed problem-solving worksheet in which pt identified current problem impacting mental health as Negative self-talk/low self-esteem and developed a [id number] plan to address this problem which was reviewed within the small group. Pt identified barriers to overcoming problem which include; not following through with plans, worry about being judged, and past negative experiences. Identified steps to reaching goal as: keep a journal with wins and stressors, challenge distorted thoughts using thought log, spend time on myself every day, and do things that make me feel confident. Benefited from group as she was able to create a personalized plan which identified barriers and steps to work on a mental health problem. Will continue in IOP to maintain safety, increase self-confidence, and continue to improve mental health sx management. ] Narrative Note: []
--- NOTE | 2018-10-31 12:31 | BH.DS ---
Discharge Summary - Demographics Date of Admission:: 10/23/18 Discharge Date: 11/01/18 Presenting Problems at Admission:: Client is a 18-year-old female with a history of depression, anxiety, and social phobia who was referred to [facility] by a friend and previous [facility] participant due to anxiety symptoms. Client reported her anxiety has been worsening since 03/2018 during which time client dropped out of college. Client shared she was experiencing increased sleep, lack of energy, ruminations, lack of concentration, and frequent absences from class. Client reported she would overload myself and spend hours studying in order to get good grades which resulted in worsening mental health symptoms. At admission, client reported somatic symptoms associated with anxiety such as nausea, tension, and restlessness. Client stated her anxiety also impacts her ability to drive and do things on her own. Per client's report her anxiety reinforces depression and anger. Client stated she will get upset with her parents and lash out at them, which makes client upset with herself. Client also endorsed isolation, avoidance behaviors, and panic attacks at admission. At admission, client's symptoms were hindering her social, educational, and familial functioning as well as her ability to function at her baseline. Discharge Diagnoses:: SIMÓN F41.1; depression unspecified; social anxiety disorder; borderline personality disorder Reason for Discharge:: Client has made progress while in [facility] as shown by her reduced anxiety, accomplishment of treatment goals, and report of using coping skills. Client to step down to [facility] level of care to promote mood stability and further reduce symptoms. - Treatment Progress During Treatment & Response: Client responded well to [facility] treatment as she was an active participant in both group and individual sessions. Client was consistent with completing homework and reported actively using healthy coping skills outside of group. Client continues to demonstrate motivation to improve her mental health and functioning. Client was receptive to learning new skills and increasing self-awareness. Client had a family session during [facility] and reported it helped improve their communication and relationship. Client has demonstrated significant progress during [facility] as client reports reduced anxiety, increased self-awareness, and better communication and follow through at home. Client stated she has been working on challenging negative thoughts and addressing conflict rather than avoiding it. Client continues to struggle with anger, negative core beliefs, and anxiety symptoms which she will continue to address during [facility]. Issues Still to be Addressed:: Client has made strides towards progress during her time in PHP, but she can continue to increase healthy coping skills to manage anxiety, anger, and negative thinking. Client would like to reduce perfectionism thinking patterns, increase supports, learn how to balance life better, and maintain stability. Client wants to continue to work on improving her relationship with her parents, motivation, and communication skills. Client would also like to increase self-esteem and combat negative core beliefs. Discharge Recommendations/Instructions:: Recommended to step down to IOP level of care to maintain gains, prevent decompensation, and further stabilize mood. Client reports reduced anxiety and improvement with managing her mental health symptoms. Client would benefit from continued support, increased coping skills, and emotional regulation practice. Discharge Handout: Complete Discharge Handout with client on aftercare options and continuity of care.
--- NOTE | 2018-11-03 12:56 | BH.DS_ITS ---
Discharge Summary - Demographics Date of Admission:: 10/23/18 Discharge Date: 11/01/18 Presenting Problems at Admission:: Client is a 18-year-old female with a history of depression, anxiety, and social phobia who was referred to [facility] by a friend and previous [facility] participant due to anxiety symptoms. Client reported her anxiety has been worsening since 03/2018 during which time client dropped out of college. Client shared she was experiencing increased sleep, lack of energy, ruminations, lack of concentration, and frequent absences from class. Client reported she would overload myself and spend hours studying in order to get good grades which resulted in worsening mental health symptoms. At admission, client reported somatic symptoms associated with anxiety such as nausea, tension, and restlessness. Client stated her anxiety also impacts her ability to drive and do things on her own. Per client's report her anxiety reinforces depression and anger. Client stated she will get upset with her parents and lash out at them, which makes client upset with herself. Client also endorsed isolation, avoidance behaviors, and panic attacks at admission. At admission, client's symptoms were hindering her social, educational, and familial functioning as well as her ability to function at her baseline. Discharge Diagnoses:: SIMÓN F41.1; depression unspecified; social anxiety disorder; borderline personality disorder Reason for Discharge:: Client has made progress while in [facility] as shown by her reduced anxiety, accomplishment of treatment goals, and report of using coping skills. Client to step down to [facility] level of care to promote mood stability and further reduce symptoms. - Treatment Progress During Treatment & Response: Client responded well to [facility] treatment as she was an active participant in both group and individual sessions. Client was consistent with completing homework and reported actively using healthy coping skills outside of group. Client continues to demonstrate motivation to improve her mental health and functioning. Client was receptive to learning new skills and increasing self-awareness. Client had a family session during [facility] and reported it helped improve their communication and relationship. Client has demonstrated significant progress during [facility] as client reports reduced anxiety, increased self-awareness, and better communication and follow through at home. Client stated she has been working on challenging negative thoughts and addressing conflict rather than avoiding it. Client continues to struggle with anger, negative core beliefs, and anxiety symptoms which she will continue to address during [facility]. Issues Still to be Addressed:: Client has made strides towards progress during her time in [facility], but she can continue to increase healthy coping skills to manage anxiety, anger, and negative thinking. Client would like to reduce perfectionism thinking patterns, increase supports, learn how to balance life better, and maintain stability. Client wants to continue to work on improving her relationship with her parents, motivation, and communication skills. Client would also like to increase self-esteem and combat negative core beliefs. Discharge Recommendations/Instructions:: Recommended to step down to IOP level of care to maintain gains, prevent decompensation, and further stabilize mood. Client reports reduced anxiety and improvement with managing her mental health symptoms. Client would benefit from continued support, increased coping skills, and emotional regulation practice. Discharge Handout: Complete Discharge Handout with client on aftercare options and continuity of care.
--- NOTE | 2018-12-01 09:06 | BH.SGPN.GN ---
Behaviors/Verbalizations/Mental Status: [Eye contact is good. Motor activity is appropriate. Appearance is casual. Speech is Appropriate. Mood is euthymic, anxious. Affect is congruent. Thoughts are linear and logical. No evidence of psychosis. Reviewed daily check in sheet and no reports of suicidal ideations or intent.] Client Response/Progress/Benefit: [Pt was an active participant in group discussion and openly shared thoughts and feelings. Emotion for today is anxious and excited. Shared that this is her last day in the IOP program and that she is excited about moving forward and continuing to make progress with her own mental health; however, is anxious about no longer having the support of the group. Able to normalize her anxiety and identify benefits of anxiety in continuing to promote progress. Pt discussed with the group personal gains and areas of growth. Discussed decreased anxiety and depression, improved socialization, and increased ability to achieve small exposure goals for reducing sx of anxiety. Discussed skills such as grounding and opposite action that have aided in progress and noted that self-awareness is going to be conte for ongoing success. Pt noted benefiting from reflecting upon personal wins and areas of success throughout the IOP program. Progress noted per pt report of decreased symptomology. Pt to discharge from [facility] on this date and is recommended to continue with individual outpatient services to maintain gains.] Narrative Note: []
[2018-12-29 15:24] VITALS: BP 122/73; PULSE 80; RESP 14
--- NOTE | 2018-12-29 15:24 | BH.NA_ITS ---
Physical Data - Vital Signs Pulse Rate: 80 Respiratory Rate: 14 Blood Pressure: 122/73 - Height/Weight Height: 1.69 m Weight:: 117.48 kg Weight in Pounds: 259.0 lbs Current Medication Compliance - Medication Compliance Do you take your medication as prescribed?: Yes Do you need assistance with taking medication?: No Have you had side effects from medication?: No Nutritional History - Appetite Nutritional Instructions:: If client shows signs of a swallowing problem, weight change of 10 pounds or more in the last month, or is on a diabetic diet, the physician will review and request a dietitian consult, as appropriate. All unintentional weight loss will be referred to the physician for decision on need for dietitian consult. Describe your appetite:: Good Have you noticed a change in your eating habits lately?: Yes - appetite increased along with symptoms Additional nutritional information:: weight gain of 17# in past 2 weeks Functional Assessment - Sleep Pattern Describe any problems with sleeping: Aaliyah notes that she frequently sleeps too much, using sleep as a form of isolation. - Activities Motor Activity:: Functional Sensory/Communication Assess - Hearing Problems Do you have any hearing problems?: Adequate - Communication Problems Do you have difficulty understanding what people are saying?: No Do you have trouble putting your thoughts into words or expressing what you want to say?: No What is your primary language?: Georgian Learning Assessment - Education What is your level of education?: Some College - Learning Barriers Learning Barriers:: Ready to learn Medical Problems/History - Neurological Conditions Neurological: Headaches - Pain Assessment Do you have acute or chronic pain?: No - Female Reproductive Do you think you may be ?: No Substance Abuse - Substance Abuse Please describe substance abuse in the last 30 days:: Client denies ETOH, tobacco, and/or illicit substance use. Mental Status Summary - Mental Status Significant Findings/Observations on Appearance and Mood:: Aaliyah is A&Ox4, cooperative with interview, and makes good eye contact. She has appropriate hygiene and grooming with casual dress. Speech is clear and of normal rate and volume. Mild depression and anhedonia. Logical associations. Normal process. No signs of delusions. Denies hallucinations, HI, and SI. Past Psychiatric History - Treatment Hx Describe (age, circumstance, etc) any past hospitalizations: [facility] 2014 and 2016 Fall Risk Assessment - Age Age: Less than 60 - Mental Status Mental Status: Willing & able to ask for assistance when needed - Physical Status Physical Status: No problems - Impairments Impairments: None - Elimination Elimination: Continent AND independent - Gait or Balance Gait or Balance: Walks independently - Hx of Falls History of falls in the past 6 months: No known history - Medications/Substances Psychotropics:: Antidepressants Others:: Antihypertensives Medications/substances used within the past 24 hours or ordered to administer: 3 or more of the medications/substances listed above - Total Score Total Points:: 2 Physician Notification - Physician Notification Physician Notified: Jarvis Chung Method of Notification: Face to Face Comments: treatment planning discussion RN Summary of Impressions - Impressions Recommendations: Include psychiatric and medical issues, treatment planning recommendations, and discharge planning needs. Impression: General Medical Conditions: migraines - Level of Care How do the client's current symptoms and functional deficits support need for this level of care?: Aaliyah's current mental health symptoms and decompensation have resulted in her having somatic complaints related to her anxiety, isolation, and dropping out of college. She notes that she recently had more difficulty concentrating in classes and withdrew from college after recieveing a single B grade. She notes that she is overwhelmed by everything and has limited ability to cope. IOP will provide the social support and skills education to promote gains and prevent further decompensation.
== END 2018-11-12 09:00 ==
LOC: BHPHP 09:00
PROVIDERS: Family Provider Pediatrics; PCP Pediatrics; Referring Provider Psychiatry & Neurology Psychiatry; Visit Provider Psychiatry & Neurology Psychiatry
DX: F41.1 Generalized anxiety disorder (principal); F32.9 Major depressive disorder, single episode, unspecified; F41.8 Other specified anxiety disorders; F60.3 Borderline personality disorder; E66.9 Obesity, unspecified; G43.909 Migraine, unspecified, not intractable, without status migrainosus; G89.29 Other chronic pain; M25.519 Pain in unspecified shoulder
CPT/HCPCS: H0035; 90832; 90834; 90847; G0410

== ENCOUNTER 2018-11-01 09:00 | Outpatient (RCR) | payer MEDICARE, MEDICAID, SELFPAY ==
--- NOTE | 2018-11-01 09:10 | BH.SGPN.GN ---
Behaviors/Verbalizations/Mental Status: [] Eye contact is good. Motor activity is appropriate. Appearance is casual. Speech is Appropriate. Mood is anxious. Affect is flat. Thoughts are linear and logical. No evidence of psychosis. Reviewed daily check in sheet and no reports of suicidal ideations or intent. Client Response/Progress/Benefit: [] Pt only spoke during her check-in. Emotion for today is excited. Shared that after yesterday group on conflict she reached out to a couple family members with whom she has conflict with. Shared that the interactions went well and she feels that she overcame fear related to talking with these family members. In the past she would get to fearful or anxious. Group praised her for her efforts which she benefited from. Progress noted per pt report. Will continue in IOP to stabilize anxiety, prevent decompensation, and improve functioning to return to school. Narrative Note: []
--- NOTE | 2018-11-01 10:16 | BH.SGPN.GN ---
Behaviors/Verbalizations/Mental Status: [Client alert and oriented, casually dressed and appropriately groomed. Eye contact fair to good. Motor activity appropriate. Speech within normal limits - quiet. Affect flat, mood dysthymic. Thoughts linear, logical, no signs of hallucinations or delusions. ] Client Response/Progress/Benefit: [Pt receptive of session, engaged throughout activity and discussion. Provided input on topic of social supports. Pt reported connecting with the groups reflection on the quote and discussion of the benefits of social supports. Pt shared at times struggling to reach out to supports in her own life. Engaged during the group activity and fid well to challenge herself to provide direction to the group. Appeared to benefit from gaining awareness of barriers that keep from seeking social support as well as practicing in the moment anxiety management skills during activity. Progress noted in ability to use increased communication during activity. Continued tx to prevent decompensation, decrease depression, as well as continue to make progress towards tx goals.] Narrative Note: []
--- NOTE | 2018-11-01 11:20 | BH.SGPN.GN ---
Behaviors/Verbalizations/Mental Status: []Pt alert and oriented, eye contact fair, casually and neatly dressed, motor activity appropriate, speech normal rate and tone, mood anxious, constricted affect, thoughts linear and intact, no evidence of delusions or hallucinations. Client Response/Progress/Benefit: []Client semi-active participant AEB client contributing at times to discussion, however listened attentively to others. Client worked with the group to make connections between barriers faced in the challenge activity and strategies for managing these barriers with utilizing social supports in daily life. Client reflected that a personal barrier in using her current supports is pushing people away. Client contributed to discussion about the different types of support and benefits different types of support can provide. Client worked with the group to identify strategies for improving development of new supports and better utilization of current supports. Client identified she would like to improve personal relationships because she would have people to go to for emotional support. Client seemed to benefit from identifying a type of support she would like to improve upon and creating actionable steps to promote follow-through. Client to continue IOP level of care to prevent decompensation, increase use of healthy supports and anxiety management skills. Narrative Note: []
--- NOTE | 2018-11-01 14:29 | BH.MDN_ITS ---
Multi-Disciplinary Note - Note 45-min Individual Time Started:: 12:35 Date: 11/01/18 Purpose of session/treatment goals addressed:: The purpose of this session was to address current stressors, symptoms, and use of coping skills. Another goal was to identify and challenge self-limiting beliefs that have kept client stuck. Other topics included: boundaries and self-awareness. Eye Contact:: Fair Motor Activity:: Appropriate Appearance:: Casual Speech:: Soft, Other - slow Mood:: Euthymic Affect:: Constricted Thoughts:: Linear, Logical, No evidence of hallucinations/delusions noted Staff Interventions:: Therapist used active listening and open-ended questions to explore client's current symptoms, stressors, and use of coping skills. Therapist used strengths perspective to empower client on recent mental health wins and boundary setting. Therapist gave client an article about the different ways anxiety presents itself to help client gain further insight to her behavioral, cognitive, and emotional warning signs. Therapist taught client about self-limiting or negative core beliefs and processed client's most common self-limiting beliefs. Therapist assisted client in combating and reframing these limiting beliefs and replacing them with more realistic messages. Therapist gave client homework to practice reframing self-limiting beliefs. Client Response:: Client responded well to session, open to meeting with therap ist. Client excitedly shared I've had some mental health wins. Client's wins included improved communication at home, starting a conversation with a stranger, and better managing her emotions. Client stated the conversation with a stranger was a big win for her as client has social anxiety. Client reported she has been following through with things at home and actually doing things the first time when her parents ask her to do chores. Client continues to connect with thought challenging and has been keeping up with a thought log to combat and reframe anxious and depressive thinking. Client reported she was recently stood up for a date which led client to having multiple negative thoughts that reinforced client's low self-esteem. Client was able to combat some of the thoughts, but she was continuing to struggle. Client connected with self-limiting beliefs or negative core beliefs and how they have kept client stuck. Some of client's self-limiting beliefs include I'm too fat, I'm not smart enough, I'm scared to get criticized, I expect people will hurt me. Client shared these beliefs have kept client from accomplishing her goals and trying new things. Client stated they have also reinforced depression and impacted relationships. Client reported some of these beliefs came from the time she was bullied online. Client able to acknowledge that some beliefs may take longer to reframe than others. Client receptive to practicing combating and replacing self-limiting beliefs with positive, more realistic messages. Risks/Concerns:: Client denies any suicidal ideation, plan, and intent as of 11/01/18. Progress Toward Goals/Plan:: Client has demonstrated significant progress during PHP and was stepped down to IOP. Client reports reduced anxiety, increased self- awareness, and better communication and follow through at home. Client stated she has been working on challenging negative thoughts and addressing conflict rather than avoiding it. Client also shared she and her parents have been communicating better and getting along well. Client continues to struggle with anger, negative core beliefs, and anxiety symptoms. Client to continue IOP to promote gains made in PHP and further increase mood stability. Time Stopped:: 13:20
--- NOTE | 2018-11-01 14:30 | BH.MTP_ITS ---
[facility] Treatment Plan - Patient Information Program Physician:: Jarvis Chung Primary Therapist:: Anabel Mccall - Psychiatric Diagnoses Psychiatric Diagnoses:: SIMÓN; depression unspecified; social anxiety disorder; borderline personality disorder Diagnosis Code(s):: F 41.1 - Estimated LOS Estimated LOS (in weeks):: 6 Problem/Goal #1 - Problem/Goal #1 Stated Goal:: Client will increase mood stability by increasing emotional regulation skills to reduce anxiety and anger. Description of Barriers: Client has improved her insight to her triggers and symptoms, but she continues to report difficulty recognizing her early warning signs and practicing self-regulation strategies consistently. Client connected with perfectionism traits and continues to have some unrealistic expectations associated with progress. Client has a few supports, but she reports often staying at home and she has anxiety about meeting new people. Client recognizes when she feels overwhelmed she shuts down and isolates when has led to depressive symptoms in the past. Client is unable to drive due to high anxiety and transportation continues to be a barrier. Client reports issues with anger and history of self-sabotaging behaviors. Client stated when she becomes too anxious she shuts down and becomes quiet. Client stated her parents are supportive, but her family can also be a stressor. Functional Impact: Client is a 18-year-old female who recently discharged from [facility] after successfully completing her treatment goals. Client continues to endorse anxiety, anger, and depressive symptoms of mild to moderate severity. Client has made progress with utilizing healthy coping skills, however, she continues to struggle with low energy, isolation, and negative thinking that reinforces unhealthy maintenance cycles. Client reports ongoing somatic symptoms associated with anxiety, anger, and avoidance behaviors. Client stated her anxiety also impacts her ability to drive and do things on her own. Per client's report her anxiety reinforces depression and anger and impacts her relationships. Client?s symptoms continue to hinder her social, educational, and familial functioning as well as her ability to function at her baseline. Goal Relevant Strengths/Supports: Client is kind, intelligent, and motivated to improve her mental health. Client shared her parents can be supportive and she shared the family session helped increase their communication. Client continues to be willing to learn and is receptive to homework. Client has a few close friends that she identifies as mental health supports. Client has been in other mental health programs before, so she has some knowledge of her symptoms and triggers. Client reported she has been able to set boundaries and accomplish personal goals in the past which will help her during treatment. Lastly, client has made progress during [facility] and reports application of coping skills. - Objectives Objective #1 Stated Objective: Client will identify 2-3 anxiety and anger triggers and 2 calming coping skills to use to reduce symptoms as shown by decreased DSM-5 cross-cutting scores for anxiety and anger. Interventions: Therapist will help client increase awareness of anxiety and anger triggers. Therapist will educate client on ways anxiety and anger impact overall health and can manifest itself. Therapist will teach client various calming strategies to promote emotional regulation. Therapist will assist client in identifying warning signs and teach client techniques to reduce, remove, or accept stressors to reduce anxiety. Therapist will encourage daily practice of coping skills to promote self-regulation. Therapist will discuss the importance of self-care, healthy relationships, and boundaries. Discharge Criteria: Client will have accomplished this goal when can report at least 2 triggers for anxiety and anger and state using 2 calming strategies to manage symptoms. Additionally, client will have accomplished this goal when her DSM-5 scores show a reduction for anxiety and anger. Target Date: 12/13/18 Review Date: 12/01/18 Status: open Objective #2 Stated Objective: Client will identify 2-3 cognitive distortions or mistaken beliefs of self that lead to rumination and learn 2-3 ways to manage these thoughts to reduce anxiety. Interventions: Therapist will provide education on the most common cognitive distortions and teach client the connection between thoughts, emotions, and feelings. Therapist will assist client in identifying, challenging, and replacing dysfunctional thoughts with positive, more realistic thoughts. Therapist will help client challenge and replace negative core beliefs that reinforce anxiety. Therapist will use CBT and DBT techniques to help client gain awareness of thinking errors and learn how to more effectively handle negative thoughts. Discharge Criteria: Client will have accomplished this goal when can identify at least 2 cognitive distortions and at least 2 coping skills to manage negative thoughts. Target Date: 12/13/18 Review Date: 12/01/18 Status: open Problem/Goal #2 - Problem/Goal #2 Stated Goal:: Client will reduce social anxiety and increase interpersonal effectiveness skills. Description of Barriers: Client has improved her insight to her triggers and symptoms, but she continues to report difficulty recognizing her early warning signs and practicing self-regulation strategies consistently. Client connected with perfectionism traits and continues to have some unrealistic expectations associated with progress. Client has a few supports, but she reports often staying at home and she has anxiety about meeting new people. Client recognizes when she feels overwhelmed she shuts down and isolates when has led to depressive symptoms in the past. Client is unable to drive due to high anxiety and transportation continues to be a barrier. Client reports issues with anger and history of self-sabotaging behaviors. Client stated when she becomes too anxious she shuts down and becomes quiet. Client stated her parents are supportive, but her family can also be a stressor. Functional Impact: Client is a 18-year-old female who recently discharged from [facility] after successfully completing her treatment goals. Client continues to endorse anxiety, anger, and depressive symptoms of mild to moderate severity. Client has made progress with utilizing healthy coping skills, however, she continues to struggle with low energy, isolation, and negative thinking that reinforces unhealthy maintenance cycles. Client reports ongoing somatic symptoms associated with anxiety, anger, and avoidance behaviors. Client stated her anxiety also impacts her ability to drive and do things on her own. Per client's report her anxiety reinforces depression and anger and impacts her relationships. Client?s symptoms continue to hinder her social, educational, and familial functioning as well as her ability to function at her baseline. Goal Relevant Strengths/Supports: Client is kind, intelligent, and motivated to improve her mental health. Client shared her parents can be supportive and she shared the family session helped increase their communication. Client continues to be willing to learn and is receptive to homework. Client has a few close friends that she identifies as mental health supports. Client has been in other mental health programs before, so she has some knowledge of her symptoms and triggers. Client reported she has been able to set boundaries and accomplish personal goals in the past which will help her during treatment. Lastly, client has made progress during [facility] and reports application of coping skills. - Objectives Objective #1 Stated Objective: Client will learn 2-3 strategies to manage anxiety and practice using assertive communication at least one time a day. Interventions: Therapist will teach client various calming coping skills to help client self-regulate when experiencing anxiety. Therapist will provide psychoeducation on anxiety and help client see the benefits of engaging in anxiety-provoking situations rather than avoiding them. Therapist will encourage client to continue communicating with her family to promote maintenance of coping skills. Therapist will help client challenge negative thoughts and learn how to express needs. Discharge Criteria: Client will have accomplished this goal when she can report using more assertive communication and practicing at coping skills daily. Target Date: 12/13/18 Review Date: 12/01/18 Status: open Objective #2 Stated Objective: Client will increase social interactions and reduce isolative behaviors by engaging in two social activities a week. Interventions: Therapist will provide psychoeducation on maintenance cycles for anxiety and how they impact client's mental health. Therapist will help client gain awareness of how her isolation can impact depressive symptoms. Therapist will encourage ongoing self-awareness and monitoring of warning signs and triggers. Therapist will help client set weekly goals that will promote closeness with others and keep client out of her room. Therapist will teach client different techniques to improve interpersonal effectiveness and communication skills. Discharge Criteria: Client will have accomplished this goal when she can report reduced isolative behaviors and engaging in at least two social activities a week. Target Date: 12/13/18 Review Date: 12/01/18 Status: open
--- NOTE | 2018-11-02 09:04 | BH.SGPN.GN ---
Behaviors/Verbalizations/Mental Status: [Eye contact is good. Motor activity is appropriate. Appearance is casual and neat. Speech is Appropriate. Mood is anxious, euthymic. Affect is congruent and bright. Thoughts are linear and logical. No evidence of psychosis. Reviewed daily check in sheet with no reports of suicidal ideations or intent.] Client Response/Progress/Benefit: [Client attentive and engaged in group discussion, provided feedback throughout. Emotion for today is excited as this is her last day in the IOP program. Shared with the group mental health positives of an improved mood and feeling more stable. Shared she is going to begin attending the [facility] group and has plans to begin outpatient counseling at [facility] next week. Did well to identify strategies to use when identifying warning signs and to prevent decompensation. Client to discharge from IOP program given amount of progress made, recommended continued counseling on an individual outpatient basis to prevent decompensation and maintain gains made. .] Narrative Note: []
--- NOTE | 2018-11-02 11:25 | BH.SGPN.GN ---
Behaviors/Verbalizations/Mental Status: []Client alert and oriented, casually dressed and groomed. Eye contact fair. Motor activity appropriate. Speech within normal limits. Affect flat, mood euthymic. Thoughts linear, logical, no signs of hallucinations or delusions. Client Response/Progress/Benefit: []Client responded well to session, quiet, but participating when prompted. Client appeared to connect with maintenance cycles and recognized how negative thinking can keep a person stuck. Client identified a negative thought that has kept her stuck. Client?s thought was ?everyone judges me.? Client shared when she thinks this way it leads to avoidance, isolation, and low self-esteem. Client recognized that this thought is unrealistic as stated ?not every single person I meet will concrete precast moulder me.? Client identified this as the cognitive distortion jumping to conclusions. Client able to reframe the thought to ?I know not everyone judges me such as my friends and family.? Client shared this thought would improve her mental health because it would make her feel more confident, isolate less, and have positive social interactions. Client appeared to benefit from practicing challenging negative thinking. Client has made progress in implementing healthy coping skills to manage anxiety symptoms, but she can continue to challenge negative thoughts and increase emotional regulation.
--- NOTE | 2018-11-03 11:00 | BH.NOTE ---
BH: Inpatient Note - Notes Behavioral Health Inpatient Note: Client is not in attendance at [facility] today, but client's therapist, Anabel, requested this RN get involved regarding client's medications. Aaliyah is questioning why she did not receive #30 pills of Celexa when it was filled last week; this is because the prescription written by Dr. Chung was written for #20. The client also requested that a prior authorization (PA) be done for the new Latuda prescription. After discussion with Dr. Chung, this RN completed PA form online through [employer], and submitted to [place] for processing, which can take 24-72 hours. Anabel updated on above and she will contact client to discuss. This RN will continue to monitor PA status and be available for additional needs. Dany Peres, MSN, RN
--- NOTE | 2018-11-06 09:02 | BH.SGPN.GN ---
Behaviors/Verbalizations/Mental Status: []Client alert and oriented, casually dressed and groomed. Eye contact fair. Motor activity appropriate. Speech within normal limits. Affect flat, mood dysthymic. Thoughts linear, logical, no signs of hallucinations or delusions. Reviewed client?s symptom tracker, no risk for suicidal ideation, plan, or intent as of 11/06/18. Client Response/Progress/Benefit: []Client responded well to session, less engaged than previous sessions. Client reports feeling ?anxious and eh? today. Client shared she went to a concert with her friend last and had ?a great time, but it gave me anxiety.? Client shared a few things went wrong at the concert and client ended up becoming highly overwhelmed and tearful. Client reported she spent most of the weekend isolated in her room because of it. The group was able to help client challenge her negative thinking and process reasons for isolation. Client acknowledged that she may have pushed herself too much too fast by going to the concert. Client reported she has learned how to prepare better for the next time she goes to a concert. Client?s current mental health wins include using some skills to cope with her anxiety and coming to group today when she could have isolated. Client appeared to benefit from reframing and processing her stressors. Client to continue IOP to prevent decompensation and reinforce the use of healthy coping skills.
--- NOTE | 2018-11-06 11:16 | BH.SGPN.GN ---
Behaviors/Verbalizations/Mental Status: [Eye contact is fair to good. Motor activity is appropriate. Appearance is casual. Speech is monotone. Mood is anxious, dysthymic. Affect is flat. Thoughts are linear and logical. No evidence of psychosis.] Client Response/Progress/Benefit: [Pt participated in group activity and discussion, played an active role throughout activity and challenged self to be more or an active member of group. Pt worked with the group to complete the challenge activity and identify barriers encountered that may also impact managing stress in daily life. Identified barriers as speaking up about needs. Pt worked with the group to identify strategies for coping with stress which included; taking a walk, spending time with supports, or taking a bath. Benefited from identifying personal barriers to managing stress, impact of stress on mental health, and stress management strategies. Pt indicated wanting to work on current stressor of isolation by setting goal to spend know more than one hour outside of sleeping in her bedroom. Pt to continue in IOP to prevent decompensation, continue to reduce sx of anxiety, and improve socialization and distress tolerance. ] Narrative Note: []
--- NOTE | 2018-11-06 15:13 | BH.MDN_ITS ---
Multi-Disciplinary Note - Note 30-min Individual Time Started:: 12:32 Date: 11/06/18 Purpose of session/treatment goals addressed:: The purpose of this session was to address current stressors, symptoms, and behaviors. Another goal was to challenge distorted thinking patterns and set a small goal for today. Eye Contact:: Fair Motor Activity:: Slowed Appearance:: Casual Speech:: Soft Mood:: Dysthymic Affect:: Congruent - tearful Thoughts:: Linear, Logical, No evidence of hallucinations/delusions noted Staff Interventions:: Therapist used active listening and open-ended questions to explore client's current stressors, symptoms, and behaviors. Therapist helped client process her emotions, normalized her experience, and brought awareness to client's use of distorted thought patterns. Therapist helped client challenge distorted thinking and identify areas of progress. Therapist reviewed maintenance cycles with client and helped client set a small goal for today. Therapist helped client develop a plan that will reduce anxiety for her upcoming concert. Therapist gave client homework to review her reframed thoughts and engage socially with her parents hua. Client Response:: Client responded well to session, open to meeting with therapist. Client shared she went to a concert with her friend on last week and there were positive parts, but it gave me a lot of anxiety. Client shared several things went wrong at the concert that resulted in client crying and needing her friend to take control. Client reported after the concert she spent majority of the weekend isolating in her room and now client reports belief I'm going backwards. Client stated her mother told her you're not making any progress. After further processing and gentle challenging, client recognized that she is experiencing distorted thinking and that her isolation may have come from feeling too emotionally overwhelmed last week. Client able to challenge her negative thoughts and reframe them. Client reframed her thinking t o I have and will continue to make progress and my mom may not see progress right now, but she will. Client acknowledged that in the past she has self- sabotaged after one setback, but she does not want to do that this time. Client set goals for today to prevent isolation and encourage more positive experiences. Client wrote down what she thinks her thinking and emotions will be like after accomplishing these goals. Client and therapist discussed strategies to manage anxiety and prevent feeling emotionally overwhelmed this week as client has another concert on . Client identify ways she plans to prepare and manage stress before, during, and after the concert. Risks/Concerns:: Client denies any suicidal ideations, plan, or intent as of 11/06/18. Progress Toward Goals/Plan:: Due to recent stressor and conflict with her mother over the weekend, client reports feeling depressed today. However, after processing and challenging distorted thoughts reinforcing depression, client was able to recognize that she has made progress. Client reported progress in standing up for herself, keeping a thought log, isolating less, and trying new coping skills. Client also acknowledged that her isolation this weekend was not entirely a setback, she may have just pushed herself emotionally too much by going to the concert. Client to continue IOP to prevent further decompensation and challenge distorted thoughts that maintain negative maintenance cycles. Time Stopped:: 13:05
--- NOTE | 2018-11-07 09:00 | BH.SGPN.GN ---
Behaviors/Verbalizations/Mental Status: [] Eye contact is good. Motor activity is appropriate. Appearance is casual. Speech is Appropriate. Mood is anxious. Affect is congruent. Thoughts are linear and logical. No evidence of psychosis. Reviewed daily check in sheet and no reports of suicidal ideations or intent Client Response/Progress/Benefit: [] Pt did not participate in group discussions. Emotion for today is anxious. Shared with the group that she noticed regression after recent concert which resulted in isolation, anxiety, and negative thoughts. This led to feeling as if she had made no progress. Reports that last evening she able to see that one bad day does not discount the progress that she had made in the past. Group provided feedback on progress not being linear which was helpful. She has another concert upcoming and has begun to develop strategies to better gaming manager her anxiety and stress. Will continue in IOP to stabilize mood, prevent decompensation, and improve functioning to return to school. Narrative Note: []
--- NOTE | 2018-11-07 11:15 | BH.SGPN.GN ---
Behaviors/Verbalizations/Mental Status: []Client alert and oriented, casually dressed and groomed. Eye contact good. Motor activity appropriate. Speech within normal limits. Affect constricted, mood anxious. Thoughts linear, logical, no signs of hallucinations or delusions. Client Response/Progress/Benefit: []client responded well to session, engaged throughout. ?Client further explored her communication style and identified using the passive type. Client shared being passive ?usually results in people walking all over me.? Client reported she tends to over-apologize and avoid conflict. Client shared this leads to more depression and anger. Client participated in the group activity and was able to practice clear, assertive communication with group members, but she declined to take an active role. Client helped the group discuss strategies to improve communication and he set a goal to increase her assertive communication. Client?s goal is to recognize when she is saying sorry too much and stop herself. Client appeared to benefit from increasing communication skills. Progress noted in client?s self-report of using coping skills to manage anxiety, but she continues to struggle with negative thinking that reinforces symptoms.
--- NOTE | 2018-11-08 09:00 | BH.SGPN.GN ---
Behaviors/Verbalizations/Mental Status: [] Eye contact is good. Motor activity is appropriate. Appearance is casual. Speech is Appropriate. Mood is anxious. Affect is congruent. Thoughts are linear and logical. No evidence of psychosis. Reviewed daily check in sheet and no reports of suicidal ideations or intent. Client Response/Progress/Benefit: [] Pt participated when prompted. Emotion for today is anxious. She continues to work on decreasing isolation on a daily basis which she reports she continues to make progress. Discussed recent events. Practising her assertive communication as well as she reports that she was more assertive during conflictual conversations. Continues to report cognitive distortions and anxiety which impact daily functioning however is improvement per pt report. Progress noted. Will continue in IOP to prevent decompensation, improve daily functioning, and decrease overwhelming anxiety. Benefited from group support, encouragement, and feedback. Narrative Note: []
--- NOTE | 2018-11-08 10:10 | BH.SGPN.GN ---
Behaviors/Verbalizations/Mental Status: [Client alert and oriented, casually dressed. Eye contact fair to good. Motor activity appropriate. Speech within soft, limited input provided, monotone. Affect flat, mood dysthymic. Thoughts linear, logical, no signs of hallucinations or delusions. ] Client Response/Progress/Benefit: [Pt receptive to session, providing limited input to discussion however actively listening throughout. Did well to remain attentive during conversation regarding anxiety and barriers in managing anxiety related sx. Pt participated in reviewing common physical, cognitive, and behavioral symptoms experienced with anxiety and identified connecting with the various examples of anxiety safety behaviors provided. Identified personal physical anxiety symptoms as: chest pain, sweating, headache, nausea, fidgeting, and pacing. Shared that anxiety related safety behaviors include: lying about how she is feeling to avoid the situation or making excuses, throwing self into work, sleeping a lot, over eating, aggression, and isolation. Pt did well to review mental health impacts of sx within small group setting. Progress in ability to identify impact of safety behaviors on ability to manage anxiety sx and increasing depression. Appeared to benefit from psychoeducation on anxiety and increasing awareness of physical symptoms as well as common safety behaviors used. Continued IOP to improve anxiety management and panic prevention, increase healthy independent coping, and prevent decompensation.] Narrative Note: []
--- NOTE | 2018-11-08 11:15 | BH.SGPN.GN ---
Behaviors/Verbalizations/Mental Status: []Client alert and oriented, casually dressed and well groomed. Eye contact good. Motor activity appropriate. Speech within normal limits. Affect congruent-red in the face at one point when asked to share, mood anxious. Thoughts linear, logical, no signs of hallucinations or delusions. Client Response/Progress/Benefit: []Client responded well to session, taking notes and providing examples occasionally. Client contributed to discussion of how one can learn to better manage anxiety. Client reported one cannot prevent anxious thoughts from occurring, but one can learn to manage those thoughts. Client stated managing anxiety and negative thinking can be done through mindfulness. Client appeared to connect with mindfulness and the different ways one can practice mindfulness. Client reported she would like to use progressive muscle relaxation to manage anxiety and anger. Client engaged in the mindfulness exercises led by ict systems test engineer. Client created a mindfulness ?menu? and reported she plans to try body scanning as a mindfulness technique to manage anxiety. Client appeared to benefit from practicing in the moment mindfulness techniques. Progress noted as client reports utilizing calming coping skills to manage anxiety in the moment. However, client can continue to benefit from IOP as she reports ongoing isolation and negative thinking that reinforces symptoms.
--- NOTE | 2018-11-09 09:01 | BH.SGPN.GN ---
Behaviors/Verbalizations/Mental Status: [Eye contact is good appearing tearful when discussing stressor. Motor activity is appropriate. Appearance is casual and comfortable. Speech is Appropriate. Mood is anxious and depressed. Affect is congruent. Thoughts are ruminative in nature, preoccupied by current stressors. No evidence of psychosis. Reviewed daily check in sheet with no reports of suicidal ideations or intent] Client Response/Progress/Benefit: [Pt engaged in group discussion, attentive throughout group discussion. Emotion for today is excited and indicated looking forward to a concert she is going to [employer]. Discussed having a plan for managing her anxiety at the concert to prevent getting overwhelmed like she had the previous time. 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 Additional positive was supporting a friend who had been struggling with anxiety. Client benefitted from being gently challenged on maintaining boundaries so she does not burn herself out as she has reported this friend often refers to pt as her ?therapist? and seeks advice/comfort from pt frequently. Pt did well to identify strategies for enforcing boundaries while continuing to be a support. Current stressor is that she had a migraine on previous date and spent more time in bed than she had wanted. Pt did well to challenge difference between isolation and resting for mental health recovery. Will continue in IOP to prevent decompensation, continue to reduce anxiety, and promote continued skill application.] Narrative Note: []
--- NOTE | 2018-11-09 10:20 | BH.SGPN.GN ---
Behaviors/Verbalizations/Mental Status: []Client alert and oriented, neatly dressed and groomed. Eye contact fair. Motor activity appropriate. Speech soft. Affect constricted, mood anxious. Thoughts linear, logical, no signs of hallucinations or delusions. Client Response/Progress/Benefit: []Client responded well to session, providing input during discussion and listening to others comments. Client connected with the topic of failure and famous people that have overcome setbacks. Client reported how one handles setbacks or failures is crucial because your response can either help you move forward or keep you stuck. Client reported the more effort you put into treatment the easier it will be to learn and apply coping to get better and overcome disappointment of failure. Client shared fear of failure can result in avoiding because you don't want to fail however results in missing out on opportunities. Client engaged in a group activity that encouraged the group to overcome fear of failure and challenge their perspective of failure. Client was positive and provided verbal direction to group members. Client appeared to benefit from gaining awareness of how fear of failure negatively impacts mental health. Client is showing progress in generalizing healthy skills outside of IOP. However, she continues to struggle with cognitive distortions at times which reinforce her anxiety. Narrative Note: []
--- NOTE | 2018-11-09 11:19 | BH.SGPN.GN ---
Behaviors/Verbalizations/Mental Status: []Client alert and oriented, casually dressed and well groomed. Eye contact good. Motor activity appropriate. Speech within normal limits. Affect constricted, mood euthymic. Thoughts linear, logical, no signs of hallucinations or delusions. Client Response/Progress/Benefit: []Client responded well to session, active participant. Client further processed the group activity and shared that trusting oneself and others helped the group accomplish the activity. Client completed the fear of failure worksheet and reported that fear of failure is keeping her from following through with goals and making new friends. Client reported her barriers for overcoming her fear of failure are ?what if thinking,? difficulty communicating, and worrying that she will be judged by others. Client shared she has been able to bounce back from setbacks in the past and the positive thing she has learned from past failures is it is good to ?do the anxious thing? and success in not a straight line. Client selected a goal to help her overcome her fear of failure. Client?s goal is to practice self-awareness strategies, so she does not fall into pitfalls. Client appeared to benefit from gaining awareness and setting a goal to reduce fear of failure. Client showing progress in utilizing healthy coping to skills to manage anxiety, but she can continue to combat negative thoughts.
== END 2018-11-12 23:59 ==
LOC: BHIOP 09:00
PROVIDERS: Family Provider Pediatrics; PCP Pediatrics; Referring Provider Psychiatry & Neurology Psychiatry; Visit Provider Psychiatry & Neurology Psychiatry
DX: F41.1 Generalized anxiety disorder (principal); F32.9 Major depressive disorder, single episode, unspecified; F60.3 Borderline personality disorder
CPT/HCPCS: H0035; 90832; 90834; 90847; 90853; G0410

== ENCOUNTER 2018-11-13 09:00 | Outpatient (RCR) | payer MEDICARE, MEDICAID, SELFPAY ==
--- NOTE | 2018-11-13 09:05 | BH.SGPN.GN ---
Behaviors/Verbalizations/Mental Status: [] Eye contact is good. Motor activity is appropriate. Appearance is casual. Speech is Appropriate. Mood is depressed. Affect is flat. Thoughts are linear and logical. No evidence of psychosis. Reviewed daily check in sheet and no reports of suicidal ideations or intent Client Response/Progress/Benefit: [] Pt participated when prompted. Emotion for today is positive. Shared that she managed the concert last week well. Shared that she encountered anxiety at times however believes that she managed it appropriately. Did not isolate or avoid over the weekend as much as she reports continued improvement.Shared medication side effects. Progress noted per pt report. Benefited from group support and encouragement. Will continue in IOP to stabilize anxiety, improve daily functioning, and prevent decompensation. Narrative Note: []
--- NOTE | 2018-11-13 10:15 | BH.SGPN.GN ---
Behaviors/Verbalizations/Mental Status: [] Eye contact is good. Motor activity is appropriate. Appearance is casual. Speech is Appropriate. Mood is depressed. Affect is flat. Thoughts are linear and logical. No evidence of psychosis. Client Response/Progress/Benefit: [] Pt was an active participant in group discussion and activity. Group worked together to identify the benefits of setting goals which included; having something to strive for, can be a positive motivator, can give a sense of purpose and accomplishment, can increase happiness and feeling of being proud, and can hold us accountable. Group discussed the barriers to following through with completing a goals which included; fearing change, lack of motivation, fear of failure, shame, disappointment, lack of support, and negative thoughts or emotions get in the way. Pt was attentive during psychoeducation on developing SMART (Specific, Measurable, Achievable, Realistic, Timely) goals as a tool to help with goal setting. Benefited from group by learning effective strategies for goal-setting and identifying barriers to completing goals. Narrative Note: []
--- NOTE | 2018-11-13 11:20 | BH.SGPN.GN ---
Behaviors/Verbalizations/Mental Status: []Pt eye contact good, casually dressed, motor activity appropriate, speech normal rate and tone, mood euthymic, congruent affect, thoughts linear and logical, no evidence of delusions or hallucinations. Client Response/Progress/Benefit: []Pt listened attentively to others and contributed thoughts and ideas to discussion. Client identified her small SMART goal is to spend no more than 45 minutes in her bedroom except for changing and sleeping. Client stated this goal will benefit her by increasing time spent with family, increase use of healthy coping, and decrease isolative behaviors. Pt identified headaches to be potential barrier to achieving identified goal, stated she can overcome this barrier by taking medicine. Pt shared another barrier would be no motivation which she identified using motivational quotes and rewarding herself as potential strategies to overcome barrier. Pt reported another barrier could be anxiety, which she identified facing the problem head on as a strategy to work through that barrier. Pt identified other supports to help her achieve her goal to include: using post it notes to remind herself, set a reminder on her phone, and support from parents. Pt seemed to benefit from identifying a SMART goal and identifying ways to help overcome potential barriers. Pt to continue IOP level of care to maintain gains, continue to use healthy coping and cognitive restructuring, and prevent decompensation. Narrative Note: []
--- NOTE | 2018-11-14 09:04 | BH.SGPN.GN ---
Behaviors/Verbalizations/Mental Status: [Eye contact is fair to good. Motor activity is appropriate. Appearance is casual. Speech is monotone. Mood is anxious and euthymic. Affect is congruent. Thoughts are linear and logical. No evidence of psychosis. Reviewed daily check in sheet with no reports of suicidal ideations or intent. ] Client Response/Progress/Benefit: [Pt attentive and engaged throughout AEB active listening and maintaining good eye contact during discussion. Able to process current progress with group. Emotion for today is happy and anxious as she noted her mental health positive include stepping outside of her comfort zone and asking someone on a date as well as taking steps to set boundaries with a friend she believes may be toxic. Pt noted feeling proud of herself for taking the initiative to do so. Pt appeared to benefit from being challenged on the rigidity of her boundary setting and consider whether completely cutting this person out of her life is the most beneficial option in the long run for her mental health and the relationship. Pt noted uncertainty as to how she can communicate her boundaries without cutting the person of and was receptive of group feedback. Indicated that this is her current stressor as well as difficulties in knowing when sleep is isolation versus when used as an appropriate skill. Able to process with the group. Pt recommended continued IOP tx to maintain stability, continue to promote healthy anxiety management skills and progress towards treatment goals, as well as prevent decompensation.] Narrative Note: []
--- NOTE | 2018-11-14 10:20 | BH.SGPN.GN ---
Behaviors/Verbalizations/Mental Status: [] Eye contact is good. Motor activity is appropriate. Appearance is casual. Speech is Appropriate. Mood is anxious. Affect is congruent. Thoughts are linear and logical. No evidence of psychosis. Client Response/Progress/Benefit: [] Pt was an active participant in group discussion and activity. Worked together with the group to define a crisis and discuss examples of crisis situations. Group identified warning signs that one is in crisis which include; intense anxiety, paranoia, excessive restlessness, distorted thinking, crying, labile, anger outbursts, self-harm, isolation, and pacing. Pt completed her own personal warning signs worksheet. Identified unhealthy ways to manage a crisis which included; over-eating, running away, anger, alcohol or substances, isolation, sleeping to escape, and self-harm. Benefited from group by increasing awareness of crisis and personal warning signs. Narrative Note: []
--- NOTE | 2018-11-14 11:20 | BH.SGPN.GN ---
Behaviors/Verbalizations/Mental Status: []Pt eye contact fair, casually dressed, motor activity restless, speech normal rate and tone, mood anxious, constricted affect, thoughts linear and logical, no evidence of delusions or hallucinations. Client Response/Progress/Benefit: []Client responded well to session as evidenced by client contributing to discussion and listening attentively to others. Client identified her warning signs for crisis and gained further awareness of her earliest warning signs. Client?s top three early warning signs were being irritable, increased anxiety, and clenched fists. Client recognized that awareness of these warning signs can prevent further crisis and help client utilize healthy coping skills to break the cycle. Client created a crisis action plan to help client better manage warning signs for crisis. Client?s plan included coping skills such writing down negative and angry thoughts and using calming breathing techniques. Client selected two items that will help her remember these crisis interventions including a post it notes and the letter b. Client appeared to benefit from creating a crisis action plan and increasing her self-awareness. Client to continue IOP to maintain gains, decrease anxiety, and prevent decompensation. Narrative Note: []
--- NOTE | 2018-11-14 15:20 | BH.MDN_ITS ---
Multi-Disciplinary Note - Note 45-min Individual Time Started:: 12:25 Date: 11/14/18 Purpose of session/treatment goals addressed:: The purpose of this session was to address current stressors and symptoms. Another goal was to increase awareness of personal boundaries and the benefits of boundary setting with supports. Other topics included psychoeducation and distress tolerance skill building. Eye Contact:: Fair Motor Activity:: Appropriate Appearance:: Casual Speech:: Appropriate Mood:: Anxious Affect:: Congruent - tearful at one point Thoughts:: Linear, Logical, No evidence of hallucinations/delusions noted Staff Interventions:: Therapist used active listening and open-ended questions to explore client's current symptoms and stressors. Therapist taught client about the different types of boundaries and used motivation interviewing techniques to help client see the benefits of setting boundaries. Therapist helped client challenge negative thinking patterns and reviewed self-talk and grounding strategies to increase distress tolerance coping skills. Therapist encouraged client to follow through with her goal of talking with her friend to set a boundary. Client Response:: Client responded well to session, receptive to meeting with therapist. Client shared she was able to make it through the concert she attended last week without anxiety and that she did not isolate as much this weekend. Client shared she continues to struggle with isolation when she has a headache, but she was receptive to alternative options. Client stated next time she gets a headache she can go outside or in the basement rather than isolate in her room. Client reported her biggest stressor right now is boundary issues with her friend. Client open to learning about the different personal boundary types. Client reported belief her friend disrespects her material, intellectual, emotional, and time boundaries. Client shared she makes me feel like my emotions don't matter and she controls me. Client's solution was to shut out h er friend without explanation. However, with further exploration, client realized this could have more consequences that benefits as client does not want to ruin the relationship. Client agreeable to talk with her friend, but she became tearful due to feeling anxious about setting the boundary. Client and therapist processed client's emotions and challenged negative thinking. Client identified supports and coping skills she can use to manage her anxiety. Client acknowledged that although she feels anxious now she will feel relieved after. Client shared if I don't set the boundary I'll keep feeling miserable. Risks/Concerns:: Client denies any suicidal ideations, plan, or intent as of 11/14/18. Progress Toward Goals/Plan:: Client is continuing to make strides towards progress. Last week client reported feeling depressed and anxious at the beginning of the week, but she was able to use healthy coping skills to reduce the intensity and duration of these symptoms. Client reported she has been working on isolating less, reports improvement with challenging negative thinking, and reports using deep breathing to prevent panic and manage anxiety. Client shared she was able to make it through a concert on without anxiety symptoms. Client has improved with communicating with her parents, but she continues to struggle with setting boundaries with her friend. Client shared she has been avoiding the conversation, which client acknowledges only amplifies her anxiety. Client reports plan to talk to her friend today. Client to continue IOP to prevent decompensation and reduce avoidance behaviors that reinforce anxiety. Time Stopped:: 13:15
--- NOTE | 2018-11-15 09:03 | BH.SGPN.GN ---
Behaviors/Verbalizations/Mental Status: []Client alert and oriented, casually dressed and groomed. Eye contact good. Motor activity appropriate. Speech within normal limits. Affect full-smiling, mood euthymic. Thoughts linear, logical, no signs of hallucinations or delusions. Reviewed client?s symptom tracker, no risk for suicidal ideation, plan, or intent as of 11/15/18. Client Response/Progress/Benefit: []Client responded well to session, active participant. Client reports feeling ?excited? today as one of her mental health wins today was setting a boundary with her friend. Client shared ?I dealt with the situation? despite feeling high anxiety about setting the boundary. Client?s other mental health wins included spending time with her parents and reaching out to a friend from [place] last night. Client reflected on her progress with ?doing the anxious thing.? Client?s current stressor is ?I got ghosted again last night? meaning client got stood up for a date. Client reported she has been coping well with it and shared ?I can?t control them, but I can control me.? Client appeared to benefit from connecting with peers and processing her stressor. Progress noted as client reports confronting anxiety producing situations instead of avoiding them. Client to continue IOP as she can further reduce anxiety and negative thinking.
--- NOTE | 2018-11-15 10:07 | BH.SGPN.GN ---
Behaviors/Verbalizations/Mental Status: [Client eye contact fair to good, grooming and attire casual, motor activity WNL - actively taking notes on tablet, speech normal rate, monotone, mood euthymic and anxious, flat affect, thoughts linear and intact, no evidence of delusions or hallucinations] Client Response/Progress/Benefit: [Pt receptive of session, attentive to discussion, and openly providing input throughout. Pt worked with group to reflect upon the quote and engaged in discussion regarding how we make decisions in our own lives. She indicated that fear and anxiety can prevent making healthy decisions in daily life. Pt appeared to benefit from group discussion regarding ?Chapters of My Life? poem and provided insight regarding how each chapter can represent the various stages in management of mental health sx and healthy decision making. Pt did well to assess her own current mental health progress and shared that she is currently in Chapter 3. Explained that this is due to making progress in learning form her past and beginning to accept how those decisions/experiences may have kept her stuck. Noted now having the tools to begin moving forward to the new chapter. Pt progress noted in improved ability to reflect on her own experiences and impact they have had on mental health sx management. Recommended continued tx to continue to promote healthy change behaviors, reduce anxiety, and prevent decompensating] Narrative Note: []
--- NOTE | 2018-11-15 11:15 | BH.SGPN.GN ---
Behaviors/Verbalizations/Mental Status: [] Eye contact is good. Motor activity is appropriate. Appearance is casual. Speech is Appropriate. Mood is anxious. Affect is congruent. Thoughts are linear and logical. No evidence of psychosis. Client Response/Progress/Benefit: [] Pt was an active participant in group activity and discussion. Participated in group discussion about what helps people move through the chapters of their life. Completed that WDEP (wants, Doing, Evaluate, Plan) Worksheet and discussed with peers in small groups. Identified a want as to lessen the isolation bit by bit, identified things that she is doing in regards to that want which include; reframing negative thoughts, utilize coping skills, and utilize supports. She evaluated what she is doing stating that she is feeling more confident, her thoughts are less negative, and her overall anxiety and somatic symptoms have decreased. Discussed her plan to continue on pace with her want stating that she feels in control. Benefited from group as she was able to identify personal steps she is doing to accomplish her want or goal. Narrative Note: []
--- NOTE | 2018-11-17 09:01 | BH.SGPN.GN ---
Behaviors/Verbalizations/Mental Status: []Client alert and oriented, casual dress, hygiene tended to. Eye contact good. Motor activity appropriate. Speech within normal limits. Affect congruent, mood euthymic and positive. Thoughts linear, logical, no signs of hallucinations or delusions. Reviewed client?s symptom tracker, no signs of suicidal ideation, plan, or intent as of today. Client Response/Progress/Benefit: []Pt was attentive AEB good eye contact and nodding throughout, provided input when elicited by therapist. Emotion for today is excited because she is spending time with family tonight and gets to play on her new olivia system. Mental health justin identified as reconnecting with her support network by calling her friends that she hasn't talked to in awhile. Pt shared she talked on the phone for about 7 hours yesterday just catching up, which she stated felt really good. Cali anderson is reaching out to a girl she had been talking with that ghosted client by not responding to pt's text messages. Pt stated the individual responded and apologized, explained to pt that the person didn't respond before because was struggling with a depressed state. Pt shared she is glad she reached out to the person so she could stop the rumination and helped pt realize she wants to focus on being more confident in herself. Pt reported currently does not have a stressor. Progress noted with pt utilizing learned skills AEB pt rebuiliding social support network and continuing to set boundaries with certain supports. Recommended to continue IOP tx to maintain gains, prevent decompensation, and continue to improve positive coping and anxiety management. Narrative Note: []
--- NOTE | 2018-11-17 10:05 | BH.SGPN.GN ---
Behaviors/Verbalizations/Mental Status: [] Eye contact is good. Motor activity is appropriate. Appearance is casual. Speech is Appropriate. Mood is anxious. Affect is congruent. Thoughts are linear and logical. No evidence of psychosis. Client Response/Progress/Benefit: [] Pt was an active participant in group activity and discussion. Worked with the group to define anger and its causes. Completed worksheet identifying internal impacts of unhealthy anger which included; physical pain, shame, decreased self-esteem, taking it oout on myself, anxiety, and depression. Pt reports external impact of unhealthy anger as; relationship conflicts with friends and family. Benefited from group by identifying that internal and external impact of unhealthy anger. Narrative Note: []
--- NOTE | 2018-11-17 10:30 | BH.NOTE ---
BH: Inpatient Note - Notes Behavioral Health Inpatient Note: Met with client individually to discuss medication concerns that she had addressed earlier in the week to therapist, Anabel. The patient notes that within the first day or two of starting on the Abilify that was prescribed, she began having facial numbness and tingling with excessive saliva production. Client notes that she contacted her pharmacist and was advised not to discontinue the medication without consulting with her physician. However, the client notes that she has been taking the medication on some days, and not on others. The client is advised not to take the medication in this intermittent fashion, and to discontinue taking the Abilify until this RN can discuss the treatment plan with Dr. Chung. Aaliyah does note that she has been doing really well this week, noting participation in social events and reaching out to friends via telephone for support. She notes that she is actively utilizing skills and trying not to isolate. She remains future oriented and describes feeling glad that she reached out to some friends, who she had not talked recently. The Abilify was prescribed in placed of Latuda (prior authorization was denied), will discuss with Dr. Chung if another medication or the Latuda should be started. Will consider the client's progress, gains, and skill utilization. Dany Peres, MSN, RN
--- NOTE | 2018-11-17 11:04 | BH.SGPN.GN ---
Behaviors/Verbalizations/Mental Status: [Client alert and oriented, casually dressed and groomed. Eye contact fair to good. Motor activity appropriate. Speech within normal limits. Affect congruent, mood anxious. Thoughts linear, logical, no signs of hallucinations or delusions] Client Response/Progress/Benefit: [Client responded well to session, actively listening though a mostly passive participant during discussion. Client participated in group activity and did well to challenge herself to use internal coping skills when experiencing frustrations and anxiety. Able to connect how skills used in activity relate to those utilized when managing anger. Shared that it takes positive self-talk, taking things one step at a time, and deep breathing strategies to remain regulated. Group identified strategies for effectively managing anger which included; checking-in with oneself, taking breaks as needed, slowing down, and using calming and mindfulness skills. Indicated relating to experiences shared by fellow participants regarding difficulties with using healthy anger management skills in the past. Client helped the group identify coping skills to more effectively manage anger and potential benefits of anger management. Client appeared to benefit from gaining coping skills to more effectively manage anger. Will continue IOP level of care to promote gains, further improve anxiety management and increase self-care strategies.] Narrative Note: []
--- NOTE | 2018-11-17 14:20 | BH.MDN_ITS ---
Multi-Disciplinary Note - Note 30-min Individual Time Started:: 12:20 Date: 11/17/18 Purpose of session/treatment goals addressed:: The purpose of this session was to continue working on identifying, combating, and replacing negative thinking and core beliefs. Another goal was to review the different types of self-care and create a plan to promote self-care balance. Eye Contact:: Fair Motor Activity:: Appropriate Appearance:: Casual Speech:: Appropriate Mood:: Euthymic Affect:: Constricted Thoughts:: Linear, Logical, No evidence of hallucinations/delusions noted Staff Interventions:: Therapist used active listening and open-ended questions to explore client's current stressors, symptoms, and use of coping skills. Therapist used strengths perspective to empower client on her progress. Therapist introduced core beliefs and provided psychoeducation. Therapist helped client identify personal negative core beliefs that have reinforced low self- esteem and anxiety. Therapist taught client ways to combat and replace these negative core beliefs and gave client homework to practice identifying evidence to support a new, balanced core belief. Therapist gave client a handout on the different types of self-care and discussed the benefits of balancing the different types. Client Response:: Client responded well to session, open to meeting with therapist. Client reported belief she has been progressing as she notices less isolation and better management of anxiety. Client shared she wants to continue to work on finding a balance with school, friends, family, and mental health. Client shared my time management is terrible and she provided examples of times she overworked herself. Client receptive to learning about the different types of self-care and how they relate to balance. Client rated herself in the different areas and found that she is not balanced. Client receptive to identifying ways she can improve certain areas of self-care for homework. Client shared she will be attending a bridal shower next weekend and she is anxious about it. Client stated although she has made progress, she still worries that people are going to custom stock maker me. Client and therapist discussed how client's fear of judgement stems from her core belief that she is not good enough. Client reported she believes she is not good enough for her family, friends, school, and relatives. Client receptive to learning more about core beliefs as well as how to combat and begin to replace them. Client identified evidenced contrary to her core belief and was receptive to practicing this daily for homework. Risks/Concerns:: Client denies any suicidal ideations, plan, or intent as of 11/17/18. Progress Toward Goals/Plan:: Client is continuing to make strides towards progress. Client reports she has been isolating less by reaching out to old friends and she has been actively using coping skills. Client stated her anxiety and anger have reduced and she has been keeping track of her mental health wins. Client has improved with communicating with her parents and shared she and her mother haven't argued in like two weeks. Client continues to engage in some avoidance behaviors, fears judgement from others, and struggles with negative core beliefs that reinforce anxiety and depression. Client to continue IOP to prevent decompensation and increase consistent mood stability. Time Stopped:: 12:48
--- NOTE | 2018-11-23 09:40 | BH.COMM ---
Communication Note - Communication with Client Communication Note: Client cancelled her scheduled IOP group and individual session today due to illness. Therapist spoke with client on the phone and client shared she plans to attend group tomorrow 11/24/18.
--- NOTE | 2018-11-24 09:06 | BH.SGPN.GN ---
Behaviors/Verbalizations/Mental Status: [Client alert and oriented, casual dress, hygiene tended to. Eye contact good. Motor activity appropriate. Speech within normal limits. Affect congruent, mood anxious. Thoughts linear, logical, no signs of hallucinations or delusions. Reviewed client?s symptom tracker, no signs of suicidal ideation, plan, or intent as of today. ] Client Response/Progress/Benefit: [Pt was a semi-active participant in group discussion, providing some input and openly processing with the group. Emotion for today is anxious. Pt indicated that she has been sick for the past several days and is unsure as to if this is because she is sick or if her anxiety is manifesting in psychosomatic symptoms. Pt reported that she has a bridal shower this weekend which may have been increasing her anxiety and is currently stressing her out. She did well to identify that planning for the shower may aid in reducing anxiety. She appeared to benefit from identifying current positives and shared that they include setting boundaries with a friend and starting to eat healthier. She is recommended to continue IOP tx to maintain gains, reduce anxiety, and prevent decompensation. ] Narrative Note: []
--- NOTE | 2018-11-24 10:20 | BH.SGPN.GN ---
Behaviors/Verbalizations/Mental Status: []Pt eye contact good, casually dressed, motor activity appropriate, speech normal rate and tone, mood euthymic, congruent affect, thoughts linear and intact, no evidence of delusions or hallucinations. Client Response/Progress/Benefit: []Client listened attentively to peers, mostly quiet, provided her input at times. Client appeared to connect with others comments about difficulty of helping others if don't take care of self AEB client nodding her head. Client identified setting boundaries as a self-care activity because if have no boundaries then people will take advantage of you. Client engaged in activity able to connect how sometimes you need to let go of some tasks or responsibilities so you can have time to engage in self-care. Client seemed to benefit from increased awareness of the importance of self-care. Client to continue IOP level of care to maintain gains, continue use of healthy coping and cognitive restructuring and prevent decompensation. Narrative Note: []
--- NOTE | 2018-11-24 11:17 | BH.SGPN.GN ---
Behaviors/Verbalizations/Mental Status: []Client alert and oriented, neatly dressed and groomed. Eye contact good. Motor activity appropriate. Speech within normal limits. Affect constricted, mood anxious. Thoughts linear, logical, no signs of hallucinations or delusions. Client Response/Progress/Benefit: []Client responded well to session, active participant. Client further processed the activity and shared self-care is needed in order to improve mental health and functioning. Client engaged in the discussion and self-assessment of the different areas of self-care. Client gave herself mostly low to average scores on the self-assessment and shared she has seen progress, but client wants to further improve her physical and emotional self-care. Client set a goal to improve her personal emotional self-care. Client?s goal is to journal three times a week to promote healthy emotional release. Client appeared to benefit from increasing awareness of how she can improve her self-care balance. Client has improved with increasing self-awareness and using calming coping skills. However, she continues to struggle with changing safety behaviors that reinforce anxiety symptoms.
--- NOTE | 2018-11-24 12:29 | PN_ITS ---
Progress Note Chief Complaint: The patient is a 18-year old female who is an active participant in the intensive outpatient mental health treatment program at [facility]. She has a long history of depression, anxiety and borderline personality features. History of Present Illness/Interim History: The patient states that generally she has been doing well and benefiting from the intensive outpatient groups. Her mood has been fairly good. Her level of anxiety worries depending on the situation. Things have been going fairly well at home, and she is getting along better with her mother. The patient has been complaining about medication side effects. I had started her on Abilify after Latuda was not covered by her insurance. She said that Abilify caused side effects and she stopped it. She has been doing well without Abilify. She has been suffering from severe anticipatory anxiety recently. She is expected to go to her cousin's bridal shower this coming weekend. She is dreading the events because she expects that there will be a lot of people there and she is expecting to suffer from severe anxiety. She fears that other people will look at her and view her an unfavorable way. She is very focused on how she will appear to others. She expressed demoralization. He talked about an event in August when she went to her aunt's celebration of life. She ended up sitting at a table not socializing because she was feeling so self-conscious. Was a very uncomfortable experience for her, and she anticipates that the coming bridal shower will will end up the same. Provided supportive and problem solving therapy. I provided education on social skills including how to focus more on the person she is talking to instead of focusing on herself. I taught her how to ask people questions to help make them more comfortable. She appeared to understand the process of developing better social skills. I suggested that she practice method some before she goes to the bridal shower. I also suggested that she can take some extra propranolol to help her stay calmer. Current Psychiatric Medications: BuSpar 15 mg twice daily, Celexa 10 mg daily, propranolol 10 mg twice daily, Abilify 2 mg daily Review of Symptoms: Psychiatry: No significant depression. She is not suicidal. She has been more anxious. There is no psychosis. She is cognitively intact. Constitutional: He is obese and her weight has been steady. She has been feeling somewhat sick lately. Mental Status Examination: The patient presents as a socially awkward woman of obese build who has good grooming. Her thoughts are logical and coherent. There is no significant depression. She denied any recent anger problems. She is not suicidal. There is no psychosis. She is cognitively intact. Diagnoses: [] [place] I: Generalized anxiety disorder; depressive disorder and specified; social anxiety disorder; sleep disorder unspecified [place] II: Borderline personality disorder [place] III: Obesity, migraine headaches, chronic shoulder pain Plan: I am stopping Abilify. I am continuing treatment with BuSpar, Celexa and propranolol at the current doses. In the session I provided 16 minutes of supportive and problem solving therapy. I suggested again that she inquire about a sleep study. I will see her for follow-up.
--- NOTE | 2018-11-24 14:24 | BH.MDN ---
Multi-Disciplinary Note - Note 30-min Individual Time Started:: 12:40 Date: 11/24/18 Purpose of session/treatment goals addressed:: The purpose of this session was to address current stressors, symptoms, and safety behaviors. Another goal was to challenge distorted thinking patterns and set a small goals for the weekend. Eye Contact:: Fair Motor Activity:: Appropriate Appearance:: Casual Speech:: Appropriate Mood:: Anxious Affect:: Constricted Thoughts:: Linear, Logical, No evidence of hallucinations/delusions noted Staff Interventions:: Therapist used active listening and open-ended questions to explore client's current stressors, symptoms, and safety behaviors. Therapist helped client process her anxiety about an upcoming bridal shower. Therapist helped client recognize, challenge, and reframe distorted thinking that is reinforcing negative core beliefs and anxiety. Therapist reviewed maintenance cycles with client and helped client set small exposure goals for the weekend. Therapist helped client develop a plan that will reduce anxiety for the upcoming bridal shower. Therapist gave client homework to review her reframed thoughts and engage socially with her parents hua. Client Response:: Client responded well to session, open to meeting with therapist. Client stated she recognizes that her stomach issues this week were anxiety-induced. Client shared I think it was from thinking about the bridal shower. Client reported despite recent exacerbation of physiological symptoms of anxiety, she continues to identify progress. Client stated she did not isolate this week which is positive. Client open to practicing cognitive restructuring. Client identified two negative thoughts that are reinforcing anxiety for this weekend. Client's thoughts were I'm going to say something stupid and I'm worried people will wood floor refinisher me. Client able to connect that these thoughts cause significant social anxiety because they reflect client's negative core belief of I'm not good enough. Client able to identify her distortions, combat, and reframe these negative thoughts. Client and therapist created a plan for the weekend to promote anxiety management before, during, and after the event. Client was receptive to the encouragement of setting small exposure goals to combat social anxiety. Client reports plan to have a small conversation with someone she does not know very well this week. Client shared despite recent stressors, I feel like I've still made progress. Risks/Concerns:: Client denies any suicidal ideations, plan, or intent as of 11/24/18. Progress Toward Goals/Plan:: Client recently experienced an exacerbation of physiological anxiety symptoms due to an upcoming bridal shower. However, despite recent stressors, client reports an overall improved mood and ability to cope with mental health symptoms. Client reports she continues to use deep breathing and other calming skills. Client shared she has not been following through as consistently with thought challenging, and she reports plans to do so this weekend. Client reports reduced isolation as well. Client continues to struggle with social anxiety and engaging in safety behaviors that reinforce anxious thinking. Client to continue IOP to prevent further decompensation and promote emotional regulation. Time Stopped:: 13:15
--- NOTE | 2018-11-28 08:56 | BH.COMM ---
Communication Note - Communication with Client Communication Note: Client called and cancelled her scheduled group and individual IOP sessions today due to not feeling well. Client shared she is unsure if it is anxiety, illness, or medication related. Client reports she is going to her PCP today. Client has experienced physiological symptoms such as nausea and headaches in the past due to anxiety. Therapist reviewed and encouraged the use of mindfulness and self-talk skills to help her manage anxiety symptoms. Client reports awareness of safety behaviors that would increase anxiety and reports plan to attend group on 11/30/18.
--- NOTE | 2018-11-28 09:02 | BH.COMM_ITS ---
Communication Note - Communication with Client Communication Note: Client called and cancelled her scheduled group and in dividual IOP sessions today due to not feeling well. Client shared she is unsure if it is anxiety, illness, or medication related. Client reports she is going to her PCP today. Client has experienced physiological symptoms such as nausea and headaches in the past due to anxiety. Therapist reviewed and encouraged the use of mindfulness and self-talk skills to help her manage anxiety symptoms. Client reports awareness of safety behaviors that would increase anxiety and reports plan to attend group on 11/30/18.
--- NOTE | 2018-11-28 09:17 | BH.MTP_ITS ---
Treatment Plan Review Date of Admission:: 10/23/18 Date of Treatment Plan Review:: 11/24/18 Admitting Diagnoses:: SIMÓN F41.1; depression unspecified; social anxiety disorder; borderline personality disorder Current Diagnoses:: SIMÓN F41.1; depression unspecified; social anxiety disorder; borderline personality disorder Patient's Response to Treatment:: Client has responded well to treatment so far as shown by her report of implementing coping skills to manage anxiety and her overall positive contributions. Client has missed a few sessions due to illness, but client is mostly consistent with attendance and often comes to group early. Client was quiet and anxious to speak when she first started the program, but now client is willing to volunteer and share out during group discussion. This is significant progress as client struggles with social anxiety and fears being judged by others. Client is a supportive and active group member who often connects with peers. In individual sessions, client is receptive to feedback and exploration of her stressors. Client is consistent with homework and implementing healthy coping skills to manage her anxiety. Client sets small goals each week and reports using open communication with her family. At admission, client reported symptoms of anxiety, anger, and isolation that interfered with her daily functioning. At review client reported reduced anxiety, less irritability, and reduced isolation. Client shared she is looking forward to going back to college rather than fearing school. Client also reports increased boundary setting and use of conflict resolution skills to mend her relationship with her brother. Client is to discharge from [facility] next week, so she did not complete a DSM-5 symptom measure for review. Status of Current Problems and Symptoms: Client recently experienced an exacerbation of physiological anxiety symptoms due self-report of an upcoming bridal shower. Client also reports belief her symptoms may be medication related. Client plans to call her primary care physician to schedule an appointment and determine the cause of her physiological symptoms. Additionally, client continues to struggle with negative thinking that reinforces social anx iety and low self-esteem. Client reports thoughts of what if I say something stupid and she fears being judged. Additionally, client has shown strides in reducing isolation. However, when she reports when she physically does not feel well she sleeps and isolates, which reinforces the depressive cycle. Problem #1 Problem Name:: Pt. will increase mood stability through emotional regulation Status of Goals:: Objective-1 partially complete. Client can identify her anxiety and anger triggers and warning signs. Client also reports implementing calming coping skills to reduce anxiety and anger. Client did not complete the DSM-5 for review due to her upcoming discharge next week. Client?s scores for anxiety will be measured and compared then. Objective 2-complete. Client can identify her common distorted thought patterns and mistaken beliefs. Client has been using a thought log on her phone to combat and reframe cognitive distortions. Client can continue to work on this goal, though, as she continues to struggle with reframing deep-rooted core beliefs. Team Recommendations:: Client encouraged to continue working on this treatment goal to reinforce healthy coping skills and continue to further decrease symptoms of anxiety and irritability. Client and therapist currently working on small exposure goals, thought challenging, and using in the moment mindfulness skills. Client encouraged to follow up with her outpatient providers for continuity of care. Problem #2 Problem Name:: Pt. will reduce social anxiety and increase interpersonal effectiveness. Status of Goals:: Objective 1-complete. Client reports using self-talk, deep breathing, and the 5 senses to manage her anxiety symptoms. Client also reports increased assertive communication and confrontation of anxiety producing situations such as a recent boundary setting with her friend. Objective 2- partially complete. Client reports reduced isolation and increased social interaction with her parents and friends. However, client?s social interactions are often over the phone or online. Client can benefit from engaging in activities outside of her home while strengthening relationships. Team Recommendations:: Client encouraged to continue working on this treatment goal to reinforce healthy coping skills to reduce social anxiety and isolation. Client and therapist currently working on reinforcing calming coping skills, small goals, and boundary setting. Client was also encouraged to set small exposure goals to confront anxiety producing situations rather than avoid them.
--- NOTE | 2018-11-30 09:00 | BH.SGPN.GN ---
Behaviors/Verbalizations/Mental Status: [] Eye contact is good. Motor activity is appropriate. Appearance is casual. Speech is Appropriate. Mood is euthymic. Affect is full. Thoughts are linear and logical. No evidence of psychosis. Reviewed daily check in sheet and no reports of suicidal ideations or intent. Client Response/Progress/Benefit: [] Pt was an active participant in group discussion. Emotion for today is tired. Shared with the group that she is feeling more positive today than last week. Reports some side effects from medications and overall somatic symptoms which she believes was related to medication changes. Reports that she had seen her PCP her took her off a couple medications and she feels better. Discussed that tomorrow will be her last day in the program and described this as bittersweet. Shared that she her progress has been up and down throughout the program however overall notes significant improvement. Has family session later on this afternoon. Progress noted. Will continue with IOP to maintain gains and prevent decompensation. Narrative Note: []
--- NOTE | 2018-11-30 10:00 | BH.SGPN.GN ---
Behaviors/Verbalizations/Mental Status: []Client alert and oriented, casually dressed and groomed. Eye contact good. Motor activity appropriate. Speech within normal limits. Affect constricted, mood anxious, euthymic. Thoughts linear, logical, no signs of hallucinations or delusions. Client Response/Progress/Benefit: []Client responded well to session, engaged in discussion and activity. Client discussed the quote and shared ?are emotions are temporary? and that one can cope with emotions in healthy or unhealthy ways. Client shared being able to cope with emotions in healthy ways improves relationships and prevents hurting others. Client identified negative thinking and lack of focus as barriers to communicating emotions in a stressful situation. Client reported the benefit of being able to communicate during stressful situations is getting the support one needs and expressing oneself. Client participated in the activity and did well to regulate her emotions. Client also gave her peers suggestions on what was working and what to avoid. Client appeared to benefit from increasing awareness of how emotions can impact communication and practicing in the moment coping skills. Progress noted as client reports consistent use of coping skills to manage anxiety. Client to continue IOP to reinforce healthy coping skills and establish aftercare.
--- NOTE | 2018-11-30 11:00 | BH.SGPN.GN ---
Behaviors/Verbalizations/Mental Status: [Eye contact is fair to good. Motor activity is appropriate. Appearance is casual. Speech is monotone. Mood is euthymic, anxious. Affect is congruent. Thoughts are linear and logical. No evidence of psychosis.] Client Response/Progress/Benefit: [Pt was an active participant in group discussion and zones of regulation activity. Attentive during psychoeducation on the 4 zones of regulation and provided input regarding common thoughts, feelings, and behaviors experienced in each zone. Pt able to provide insight regarding how she feels and acts in each zone. Benefited from increased education on zones of regulation or stages of alertness for emotions and healthy coping skills to use for each zone. Identified current zone as ?between the yellow and green? and indicated that this is because she is still struggling from anxiety experienced earlier in the week but is doing better to remember to use her coping skills. Able to identify strategies to incorporate so she can support herself in returning to the ?green zone? as checking-in with her parents and creating a solid aftercare plan. Progress noted in increased insight regarding current emotional state and what she needs to manage mental health sx today. Recommended continued IOP tx to promote ongoing application of skills, decrease anxiety, and prevent decompensation. ] Narrative Note: []
--- NOTE | 2018-11-30 13:51 | BH.MDN ---
Multi-Disciplinary Note - Note Family Time Started:: 12:05 Date: 11/30/18 Purpose of session/treatment goals addressed:: The purpose of this session was to review client's progress and review strategies that will promote mood stability and gains made in IOP. Another goal was to engage client's parents in discharge recommendations and aftercare planning. Eye Contact:: Fair Motor Activity:: Appropriate Appearance:: Casual Speech:: Appropriate Mood:: Euthymic, Anxious Affect:: Congruent Thoughts:: Linear, Logical, No evidence of hallucinations/delusions noted Staff Interventions:: Therapist used open-ended questions to explore client's, and her parents?, thoughts on personal progress. Therapist reviewed supports, warning signs, and coping skills with client and her parents to promote gains and prevent setbacks. Therapist discussed aftercare plan and recommendations and used strengths-perspective to empower client on the goals client has accomplished. Therapist gave client a quote collage for closure. Client Response:: Client and her parents responded well to session, open to meeting with therapist. Client stated she went to her primary care physician on Tuesday and they changed her psychiatric medications. Per client's report her dizziness, nausea, and headaches were medication related. Client's mother shared when she gets sick it exacerbates anxiety. Client reports feeling better now, and she shared the change is helping. Client shared I always have some anxiety. Client requested a referral to a provider at [facility] for ongoing psychiatry and she reports plan to follow up with [facility] in [place] for outpatient counseling. Client and her parents reviewed strategies for success and discussed their plan for maintaining client's progress. Client identified the following strategies to be helpful in managing mental health symptoms. Client's strategies were: self-talk this is temporary, 5-senses, deep breathing, taking walks, not isolating, communicating with her supports, thought challenging, and regular check-ins. Client's mother shared she plans to help client with regular check-ins using a scaling system. Client and her parents were receptive to ongoing work on exposure techniques to further reduce anxiety. Risks/Concerns:: Client denies any suicidal ideations, plan, or intent as of 11/30/18 Progress Toward Goals/Plan:: Client has demonstrated progress towards treatment goals as shown by her report of increased ability to cope with mental health symptoms despite ongoing stressors. Client and her parents all report increased coping skills and better management of anxiety. Client states belief she has made progress with using deep breathing, ?doing the anxious thing,? and not isolating. Per client?s report, her recent nausea and exacerbation of anxiety were medication related. Client saw her primary care on Tuesday and her medications were changed again. Client?s aftercare appointments need to be finalized, but she has providers to follow up with. Client will discharge from [facility] on Tuesday12/01/18. Client can benefit from one more IOP day to reinforce healthy coping skills and establish aftercare plan. Time Stopped:: 12:41
--- NOTE | 2018-11-30 14:13 | BH.MDN_ITS ---
Multi-Disciplinary Note - Note Family Time Started:: 12:05 Date: 11/30/18 Purpose of session/treatment goals addressed:: The purpose of this session was to review client's progress and review strategies that will promote mood stability and gains made in IOP. Another goal was to engage client's parents in discharge recommendations and aftercare planning. Eye Contact:: Fair Motor Activity:: Appropriate Appearance:: Casual Speech:: Appropriate Mood:: Euthymic, Anxious Affect:: Congruent Thoughts:: Linear, Logical, No evidence of hallucinations/delusions noted Staff Interventions:: Therapist used open-ended questions to explore client's, and her parents?, thoughts on personal progress. Therapist reviewed supports, warning signs, and coping skills with client and her parents to promote gains and prevent setbacks. Therapist discussed aftercare plan and recommendations and used strengths-perspective to empower client on the goals client has accomplished. Therapist gave client a quote collage for closure. Client Response:: Client and her parents responded well to session, open to meeting with therapist. Client stated she went to her primary care physician on Tuesday and they changed her psychiatric medications. Per client's report her dizziness, nausea, and headaches were medication related. Client's mother shared when she gets sick it exacerbates anxiety. Client reports feeling better now, and she shared the change is helping. Client shared I always have some anxiety. Client requested a referral to a provider at [facility] for ongoing psychiatry and she reports plan to follow up with [facility] in [place] for outpatient counseling. Client and her parents reviewed strategies for success and discussed their plan for maintaining client's progress. Client identified the following strategies to be helpful in managing mental health symptoms. Client's strategies were: self-talk this is temporary, 5-senses, deep breathing, taking walks, not isolating, communicating with her s upports, thought challenging, and regular check-ins. Client's mother shared she plans to help client with regular check-ins using a scaling system. Client and her parents were receptive to ongoing work on exposure techniques to further reduce anxiety. Risks/Concerns:: Client denies any suicidal ideations, plan, or intent as of 11/30/18 Progress Toward Goals/Plan:: Client has demonstrated progress towards treatment goals as shown by her report of increased ability to cope with mental health symptoms despite ongoing stressors. Client and her parents all report increased coping skills and better management of anxiety. Client states belief she has made progress with using deep breathing, ?doing the anxious thing,? and not isolating. Per client?s report, her recent nausea and exacerbation of anxiety were medication related. Client saw her primary care on Tuesday and her medications were changed again. Client?s aftercare appointments need to be finalized, but she has providers to follow up with. Client will discharge from [facility] on Tuesday12/01/18. Client can benefit from one more IOP day to reinforce healthy coping skills and establish aftercare plan. Time Stopped:: 12:41
--- NOTE | 2018-12-01 09:15 | BH.AFTERPLAN ---
Aftercare Plan - Demographics Treatment End Date:: 12/01/18 Psychiatrist:: Jarvis Chung Psychiatrist Office #:: [phone] PHP/IOP Therapist:: Anabel Mccall Therapist Phone #:: [phone] - Medications Home Medications: Home Medications Acetaminophen [Tylenol Extra Strength] 500 - 1,000 mg PO Q6H PRN PRN 11/03/18 Aripiprazole [Abilify] 2 mg PO DAILY 11/03/18 Ascorbic Acid [Vitamin C] 500 mg PO DAILY 11/03/18 Aspirin/Acetaminophen/Caffeine [Headache 250-250-65 mg Tablet] 1 each PO BID PRN 11/03/18 B-Complex with Vitamin C [Super B Complex-Vitamin C] 1 each PO DAILY 11/03/18 Cholecalciferol (Vitamin D3) [Vitamin D3] 5,000 unit PO DAILY 11/03/18 Citalopram [Celexa] 10 mg PO DAILY 11/03/18 Cyclobenzaprine HCl 7.5 mg PO TID PRN 11/03/18 Desogestrel-Ethinyl Estradiol [Apri] 1 each PO DAILY 11/03/18 Elderberry Fruit and Flower [Black Elderberry 575 mg Cap] 1 - 2 each PO DAILY 11/03/18 Fluticasone 0.05% [Flonase Nasal Griffith] 1 - 2 spray NASAL DAILY 11/03/18 Ibuprofen 600 - 800 mg PO Q6H PRN PRN 11/03/18 Magnesium Oxide [Magnesium] 500 mg PO DAILY 11/03/18 Ondansetron [Zofran Odt] 4 mg PO Q8H PRN PRN 11/03/18 Propranolol HCl [Inderal] 10 mg PO BID 11/03/18 Topiramate [Topamax] 50 mg PO BID 11/03/18 busPIRone [Buspar] 15 mg PO BID PRN 11/03/18 - Plan Details Progress/Aftercare Plan Details:: Aaliyah has shown such great strides while in PHP and then IOP. Aaliyah has shown progress with implementing healthy coping skills to health better manage anxiety symptoms. Aaliyah has demonstrated consistency in using thought challenging, deep breathing, and self-talk. Aaliyah has been working on doing the anxious thing which has helped her set boundaries and step out of her comfort zone during group. Aaliyah reports less isolation and improved ability to regulate her emotions. Aaliyah's communication and relationship with her parents has improved as well. Aaliyah has increased self-awareness of cognitive distortions, negative core beliefs, and safety behaviors that reinforce anxiety. Aaliyah reports actively combating negative thoughts and has been tracking personal wins. Aaliyah is more aware of her maintenance cycles and what can help break out of negative maintenance cycles. Additionally, Aaliyah reports looking forward to returning to college which demonstrates progress. Aaliyah is beginning to work on small exposure goals to help with social anxiety and she was encouraged to continue working on this post IOP discharge. Aaliyah was also encouraged to continue individual counseling and psychiatric services. Great Work! Strategies for Success:: 1. AWARENESS and COMMUNICATION! Continue to practice daily check-ins with your supports and pay attention to warning signs and triggers. Ask yourself what do I need right now to cope? 2. Challenge negative thoughts and continue with the thought log. What's the evidence against? Am I thinking in black and white? Is this temporary? 3. Self-care and balance! Remember life is about balance! take time to check in with yourself. How are you doing in all areas of self-care? 4. SUPPORT! Internal support (coping skills) and external support (family, friends, counseling, etc.) Pay attention to isolation and continue to use the skills that have helped you not isolate. 5. Stay active! Take the dogs for walks or just get outside with supports. 6.CONSISTENCY! Consistency with medication, coping skills, and routine! 7.Positive self-talk! Talk yourself through anxiety to combat false danger examples include I've been able to do this before, I can make it through this, and this is temporary. 8. Review your binder! 9. set small goals and keep track of wins! 10. DO THE ANXIOUS THING! :) - Appointments Appointments/Referrals to Other Services:: 1. Follow up with Laurie for an individual appointment next week. 2. Follow up in [place] at [facility] for ongoing counseling- waiting to hear back on an appointment. 3. Follow up with your primary care for medication monitoring while waiting on psychiatry. Last appointment was 11/28/18. 4. Options for Psychiatry in [facility] provided. 5. [facility] in [place] is always a great resource for social support.
--- NOTE | 2018-12-01 09:29 | BH.IGGP_ITS ---
Aftercare Plan - Demographics Treatment End Date:: 12/01/18 Psychiatrist:: Jarvis Chung Psychiatrist Office #:: [phone] PHP/IOP Therapist:: Anabel Mccall Therapist Phone #:: [phone] - Medications Home Medications: Home Medications Acetaminophen [Tylenol Extra Strength] 500 - 1,000 mg PO Q6H PRN PRN 11/03/18 Aripiprazole [Abilify] 2 mg PO DAILY 11/03/18 Ascorbic Acid [Vitamin C] 500 mg PO DAILY 11/03/18 Aspirin/Acetaminophen/Caffeine [Headache 250-250-65 mg Tablet] 1 each PO BID PRN 11/03/18 B-Complex with Vitamin C [Super B Complex-Vitamin C] 1 each PO DAILY 11/03/18 Cholecalciferol (Vitamin D3) [Vitamin D3] 5,000 unit PO DAILY 11/03/18 Citalopram [Celexa] 10 mg PO DAILY 11/03/18 Cyclobenzaprine HCl 7.5 mg PO TID PRN 11/03/18 Desogestrel-Ethinyl Estradiol [Apri] 1 each PO DAILY 11/03/18 Elderberry Fruit and Flower [Black Elderberry 575 mg Cap] 1 - 2 each PO DAILY 11/03/18 Fluticasone 0.05% [Flonase Nasal [place]] 1 - 2 spray NASAL DAILY 11/03/18 Ibuprofen 600 - 800 mg PO Q6H PRN PRN 11/03/18 Magnesium Oxide [Magnesium] 500 mg PO DAILY 11/03/18 Ondansetron [Zofran Odt] 4 mg PO Q8H PRN PRN 11/03/18 Propranolol HCl [Inderal] 10 mg PO BID 11/03/18 Topiramate [Topamax] 50 mg PO BID 11/03/18 busPIRone [Buspar] 15 mg PO BID PRN 11/03/18 - Plan Details Progress/Aftercare Plan Details:: Aaliyah has shown such great strides while in PHP and then IOP. Aaliyah has shown progress with implementing healthy coping skills to health better manage anxiety symptoms. Aaliyah has demonstrated consistency in using thought challenging, deep breathing, and self-talk. Aaliyah has been working on doing the anxious thing which has helped her set boundaries and step out of her comfort zone during group. Aaliyah reports less isolation and improved ability to regulate her emotions. Aaliyah's communication and relationship with her parents has improved as well. Aaliyah has increased self-awareness of cognitive distortions, negative core beliefs, and safety behaviors that reinforce anxiety. Aaliyah reports actively combating negative thoughts and has been tracking personal wins. Aaliyah is more aware of her maintenance cycles and what can help break out of negative maintenance cycles. Additionally, Aaliyah reports looking forward to returning to college which demonstrates progress. Aaliyah is beginning to work on small exposure goals to help with social anxiety and she was encouraged to continue working on this post IOP discharge. Aaliyah was also encouraged to continue individual counseling and psychiatric services. Great Work! Strategies for Success:: 1. AWARENESS and COMMUNICATION! Continue to practice daily check-ins with your supports and pay attention to warning signs and trigge rs. Ask yourself what do I need right now to cope? 2. Challenge negative thoughts and continue with the thought log. What's the evidence against? Am I thinking in black and white? Is this temporary? 3. Self-care and balance! Remember life is about balance! take time to check in with yourself. How are you doing in all areas of self-care? 4. SUPPORT! Internal support (coping skills) and external support (family, friends, counseling, etc.) Pay attention to isolation and continue to use the skills that have helped you not isolate. 5. Stay active! Take the dogs for walks or just get outside with supports. 6.CONSISTENCY! Consistency with medication, coping skills, and routine! 7.Positive self-talk! Talk yourself through anxiety to combat false danger examples include I've been able to do this before, I can make it through this, and this is temporary. 8. Review your binder! 9. set small goals and keep track of wins! 10. DO THE ANXIOUS THING! :) - Appointments Appointments/Referrals to Other Services:: 1. Follow up with Laurie for an individual appointment next week. 2. Follow up in [place] at [facility] for ongoing counseling- waiting to hear back on an appointment. 3. Follow up with your primary care for medication monitoring while waiting on psychiatry. Last appointment was 11/28/18. 4. Options for Psychiatry in [facility] provided. 5. [facility] in [place] is always a great resource for social support.
--- NOTE | 2018-12-01 10:03 | BH.DS ---
Discharge Summary - Demographics Date of Admission:: 10/23/18 Discharge Date: 12/01/18 Presenting Problems at Admission:: Client is a 18-year-old female with a history of depression, anxiety, and social anxiety who was referred to [facility] by a friend and previous [facility] participant due to anxiety symptoms. Client reported her anxiety had been worsening since 03/2018 during which time client dropped out of college. At that time, client was experiencing increased sleep, lack of energy, ruminations, lack of concentration, and frequent absences from class. Client reported she would overload myself and spend hours studying in order to get good grades which resulted in worsening mental health symptoms. At admission, client reported somatic symptoms associated with anxiety such as nausea, tension, and restlessness. Client stated her anxiety also impacted her ability to drive and do things on her own. Per client's report her anxiety reinforced depression and brought on anger-outbursts. At admission, client reported frequent times when she would get upset with her parents and lash out at them. Client also endorsed isolation, avoidance behaviors, and panic attacks at admission. Client?s symptoms were hindering her social, educational, and familial functioning as well as her ability to function at her baseline. Discharge Diagnoses:: SIMÓN F41.1; depression unspecified; social anxiety disorder; borderline personality disorder Reason for Discharge:: Client has shown significant strides towards treatment goals as shown by her report of reduced duration and intensity of symptoms. Client no longer meets criteria for [facility] level of care. - Treatment Progress During Treatment & Response: Client responded well to treatment as shown by her reduced DSM-5 scores for anxiety and her overall positive contributions. Client missed a few days due to illness, but overall, client was consistent in attendance and completion of therapy homework. Client started in [facility] and made significant strides in increasing self-awareness, using coping skills, and engaging in group. Client was quiet and anxious to speak when she first started the program, but by the end of IOP, client was an active participant. Client often took notes and reported reading over them frequently. In individual sessions, client was receptive to feedback and exploration of her stressors. Client was consistent with homework and implementing healthy coping skills to manage her anxiety. Client set small goals each week and had open communication with her family throughout her IOP treatment. At admission, client reported symptoms of anxiety, anger, and isolation that interfered with her daily functioning. At discharge client reported reduced anxiety, less irritable, and reduced isolation. Client?s DSM-5 score for anxiety reduced from 9/12 at admission to 6/12 at discharge. Client?s score for anger and irritability also decreased by half since admission. Client self-reported increased confidence in coping with symptoms and more willingness to ?do the anxious thing? rather than avoid anxiety producing situations. Issues Still to be Addressed:: Client has shown progress towards treatment goals while in [facility] as shown by her reduced DSM-5 scores for anxiety. However, client can continue to benefit from ongoing counseling to reinforce healthy coping skills such as thought challenging, self-talk, distress tolerance, and mindfulness. Client acknowledges that she continues to struggle with negative core beliefs that reinforce anxiety and depression. Client would like to work on further combating and replacing negative core beliefs. Client was encouraged by therapist to begin working on small exposure goals to combat her social anxiety and increase resilience. Client reported being receptive to this recommendation. Client improved with reducing isolation, but there is a concern post IOP discharge that client will return to isolating due to lack of structure. Client can continue to increase social support and engagement in meaningful activities. Client wants to return to school in the Fall and she can benefit from ongoing stress and time management skills to prevent burnout and maintain progress in mood stability. Lastly, client worked on increasing self-esteem through boundary setting and assertive communication. Client is encouraged to continue working on these skills. Discharge Recommendations/Instructions:: Client was recommended to follow up with her individual therapist, Laurie. Client has an appointment next week. Client had requested referrals for new outpatient counselors and this therapist provided client with a list. Client shared she called [facility] in [place] to establish outpatient counseling and that client is waiting to hear back on an appointment. Client was provided resources for psychiatry in [place] and she has an appointment on 12/[address] Oh at [facility] in [place]. Client?s primary care physician recently changed client?s medications and client was recommended to follow up with her PCP for continuity of care. Client was recommended, by [facility] psychiatrist, to receive a sleep study. Client shared she is in the process of scheduling the sleep study. Lastly, client was encouraged to continue increasing her social support and reducing social anxiety. Client was given resources for [facility] in [place]. Discharge Handout: Complete Discharge Handout with client on aftercare options and continuity of care.
--- NOTE | 2018-12-01 10:30 | BH.SGPN.GN ---
Behaviors/Verbalizations/Mental Status: []Client alert and oriented, casually dressed and groomed. Eye contact good. Motor activity appropriate. Speech within normal limits. Affect congruent, mood euthymic, anxious. Thoughts linear, logical, no signs of hallucinations or delusions. Client Response/Progress/Benefit: []Client responded well to session, positive contributions. Client commented on the quote and shared ?the path to mental health recovery isn?t easy, but it?s worth it.? Client appeared to connect with the topic of personal pitfalls and how they can prevent mental health progress. Client identified barriers to making mental health progress such as lack of support and continuing to think negative. Client shared not using coping skills is an example of a personal pitfall. Client participated in the group activity and reported feeling anxious. Client was utilizing deep breathing to cope in the moment. Client reflected that one can benefit from managing emotions and having self-awareness to avoid personal pitfalls. ?Client appeared to benefit from increasing self-awareness and applying in the moment coping. Client?s last day of IOP. Client has shown significant progress in implementing coping skills to manage anxiety.
--- NOTE | 2018-12-01 11:30 | BH.SGPN.GN ---
Behaviors/Verbalizations/Mental Status: []Client alert and oriented, casually dressed and groomed. Eye contact good. Motor activity appropriate. Speech within normal limits. Affect congruent to topic being discussed, mood euthymic and positive. Thoughts linear, logical, no signs of hallucinations or delusions. Client Response/Progress/Benefit: []Provided input throughout group discussion and was attentive to peers comments and suggestions. Pt completed a worksheet where she identified her own personal pitfalls. Personal pitfalls included: negative thinking, lack of confidence, caring too much about what others think, and fear of failure. Client noted treatment progress reflecting back on when she started IOP that she would have identified many more pitfalls compared to what she identified today. Group worked together to identify strategies to overcome personal and general pitfalls which included; actively participating in mental health treatment, setting realistic expectations, positive self-talk, utilizing support system, reflection on past experiences, identifying coping skills that are effective and not effective, reframing, and challenging negative thoughts. Benefited from identifying personal and general pitfalls and strategies to over these pitfalls. client has made significant treatment progress in IOP and will discharge from IOP today. Narrative Note: []
--- NOTE | 2018-12-05 07:41 | BH.DS_ITS ---
Discharge Summary - Demographics Date of Admission:: 10/23/18 Discharge Date: 12/01/18 Presenting Problems at Admission:: Client is a 18-year-old female with a history of depression, anxiety, and social anxiety who was referred to [facility] by a friend and previous [facility] participant due to anxiety symptoms. Client reported her anxiety had been worsening since 03/2018 during which time client dropped out of college. At that time, client was experiencing increased sleep, lack of energy, ruminations, lack of concentration, and frequent absences from class. Client reported she would overload myself and spend hours studying in order to get good grades which resulted in worsening mental health symptoms. At admission, client reported somatic symptoms associated with anxiety such as nausea, tension, and restlessness. Client stated her anxiety also impacted her ability to drive and do things on her own. Per client's report her anxiety reinforced depression and brought on anger-outbursts. At admission, client reported frequent times when she would get upset with her parents and lash out at them. Client also endorsed isolation, avoidance behaviors, and panic attacks at admission. Client?s symptoms were hindering her social, educational, and familial functioning as well as her ability to function at her baseline. Discharge Diagnoses:: SIMÓN F41.1; depression unspecified; social anxiety disorder; borderline personality disorder Reason for Discharge:: Client has shown significant strides towards treatment goals as shown by her report of reduced duration and intensity of symptoms. Client no longer meets criteria for [facility] level of care. - Treatment Progress During Treatment & Response: Client responded well to treatment as shown by her reduced DSM-5 scores for anxiety and her overall positive contributions. Client missed a few days due to illness, but overall, client was consistent in attendance and completion of therapy homework. Client started in [facility] and made significant strides in increasing self-awareness, using coping skills, and engaging in group. Client was quiet and anxious to speak when she first started the program, but by the end of IOP, client was an active participant. Client often took notes and reported reading over them frequently. In individual sessions, client was receptive to feedback and exploration of her stressors. Client was consistent with homework and implementing healthy coping skills to manage her anxiety. Client set small goals each week and had open communication with her family throughout her IOP treatment. At admission, client reported symptoms of anxiety, anger, and isolation that interfered with her daily functioning. At discharge client reported reduced anxiety, less irritable, and reduced isolation. Client?s DSM-5 score for anxiety reduced from 9/12 at admission to 6/12 at discharge. Client?s score for anger and irritability also decreased by half since admission. Client self-reported increased confidence in coping with symptoms and more willingness to ?do the anxious thing? rather than avoid anxiety producing situations. Issues Still to be Addressed:: Client has shown progress towards treatment goals while in [facility] as shown by her reduced DSM-5 scores for anxiety. However, client can continue to benefit from ongoing counseling to reinforce healthy coping skills such as thought challenging, self-talk, distress tolerance, and mindfulness. Client acknowledges that she continues to struggle with negative core beliefs that reinforce anxiety and depression. Client would like to work on further combating and replacing negative core beliefs. Client was encouraged by therapist to begin working on small exposure goals to combat her social anxiety and increase resilience. Client reported being receptive to this recommendation. Client improved with reducing isolation, but there is a concern post IOP discharge that client will return to isolating due to lack of structure. Client can continue to increase social support and engagement in meaningful activities. Client wants to return to school in the Fall and she can benefit from ongoing stress and time management skills to prevent burnout and maintain progress in mood stability. Lastly, client worked on increasing self-esteem through boundary setting and assertive communication. Client is encouraged to continue working on these skills. Discharge Recommendations/Instructions:: Client was recommended to follow up with her individual therapist, Laurie. Client has an appointment next week. Client had requested referrals for new outpatient counselors and this therapist provided client with a list. Client shared she called [facility] in [place] to establish outpatient counseling and that client is waiting to hear back on an appointment. Client was provided resources for psychiatry in [place] and she has an appointment on 12/[address] Oh at Psych in [place]. Client?s primary care physician recently changed client?s medications and client was recommended to follow up with her PCP for continuity of care. Client was recommended, by [facility] psychiatrist, to receive a sleep study. Client shared she is in the process of scheduling the sleep study. Lastly, client was encouraged to continue increasing her social support and reducing social anxiety. Client was given resources for [facility] in [place]. Discharge Handout: Complete Discharge Handout with client on aftercare options and continuity of care.
== END 2018-12-01 14:00 | disposition home or self-care (01) ==
LOC: BHIOP 09:00
PROVIDERS: Family Provider Pediatrics; PCP Pediatrics; Referring Provider Psychiatry & Neurology Psychiatry; Visit Provider Psychiatry & Neurology Psychiatry
DX: F41.1 Generalized anxiety disorder (principal); F32.9 Major depressive disorder, single episode, unspecified; F41.8 Other specified anxiety disorders; F60.3 Borderline personality disorder
CPT/HCPCS: H0035; 90832; 90834; 90847; 90853

== ENCOUNTER 2022-07-17 18:03 | Emergency (ER) | payer MEDICARE, MEDICAID, SELFPAY ==
[2022-07-17 18:05] VITALS: BP 111/71; PULSE 94; RESP 18; TEMP 36.9; O2SAT 97; BMI 36.1
--- NOTE | 2022-07-17 18:26 | EX.ED.DYSGE1 ---
HPI History of Present Illness Chief Complaint: Flank Pain Informant: patient and parent Onset/Context/Timing Onset: Yesterday Current Severity: Moderate Maximum Severity: Moderate Narrative Narrative: Patient presents secondary to her upper quadrant abdominal pain and dysuria. Symptoms started yesterday. She was seen at an urgent care yesterday where they checked her urine. She states she was told she had a urine infection and needed to go to the emergency room for IV fluids and IV antibiotics. She went to [place] emergency room. She had a urinalysis performed and there that showed some hematuria but no evidence of infection. test was negative. CT flank revealed no obstructive uropathy and liquid stool in the large bowel. Patient was discharged with Zofran and Bentyl. Patient states every time she tries to eat she has increased pain in the right upper quadrant and vomiting. She continues to have dysuria. She has not had fever or chills. [facility] Medical History (Updated 07/17/22 @ 20:[address] Flor Salguero MD) Anxiety Depression Hip abductor tendonitis Medical History no medical history no medical history Home Medications B-complex with vitamin C (Super B Complex-Vitamin C tablet) 1 ea PO DAILY 11/03/18 [History Last Taken Unknown] Desogestrel-Ethinyl Estradiol [Apri 28 Day Tablet] 1 ea PO DAILY 11/03/18 [History Last Taken Unknown] acetaminophen 500 mg tablet 500 - 1,000 mg PO Q6H PRN PRN Headache 11/03/18 [History Last Taken Unknown] aripiprazole 2 mg tablet 2 mg PO DAILY 11/03/18 [History Last Taken Unknown] ascorbic acid (vitamin C) 500 mg capsule 500 mg PO DAILY 11/03/18 [History Last Taken Unknown] esvbqbe-bjahzhefimndk-gslxcgrm 250 mg-250 mg-65 mg tablet (Headache Relief ([id number])) 1 ea PO BID PRN Headache 11/03/18 [History Last Taken Unknown] buspirone 15 mg tablet 15 mg PO BID PRN Anxiety 11/03/18 [History Last Taken Unknown] cholecalciferol (vitamin D3) 125 mcg (5,000 unit) capsule 5,000 unit PO DAILY 11/03/18 [History Last Taken Unknown] citalopram 10 mg tablet 10 mg PO DAILY 11/03/18 [History Last Taken Unknown] cyclobenzaprine 7.5 mg tablet 7.5 mg PO TID PRN Muscle Spasm 11/03/18 [History Last Taken Unknown] elderberry fruit 460 mg-elderberry flower 115 mg capsule 1 - 2 ea PO DAILY 11/03/18 [History Last Taken Unknown] fluticasone propionate 50 mcg/actuation nasal spray,suspension 1 - 2 spray DAILY 11/03/18 [History Last Taken Unknown] ibuprofen 200 mg tablet 600 - 800 mg PO Q6H PRN PRN Pain 11/03/18 [History Last Taken Unknown] magnesium oxide 500 mg capsule 500 mg PO DAILY 11/03/18 [History Last Taken Unknown] ondansetron 4 mg disintegrating tablet 4 mg PO Q8H PRN PRN Nausea 11/03/18 [History Last Taken Unknown] propranolol 10 mg tablet 10 mg PO BID 11/03/18 [History Last Taken Unknown] topiramate 50 mg tablet 50 mg PO BID 11/03/18 [History Last Taken Unknown] hydrocodone-acetaminophen 5-325mg 5mg-325mg 1 tab PO Q6H PRN pain 3 days #10 tabs 07/17/22 [Rx Last Taken Unknown] ondansetron 4 mg disintegrating tablet 4 mg PO Q8H PRN nausea and vomiting #10 tabs 07/17/22 [Rx Last Taken Unknown] potassium chloride 20 mEq tablet,extended release 20 meq PO BID #8 tabs 07/17/22 [Rx Last Taken Unknown] sulfamethoxazole 800 mg-trimethoprim 160 mg tablet (Bactrim DS) 1 tab PO BID #6 tabs 07/17/22 [Rx Last Taken Unknown] Allergy/AdvReac Type Severity Reaction Status Date / Time azithromycin AdvReac Diarrhea Verified 07/17/22 18:05 Surgical History (Updated 07/17/22 @ 18:45 by Radha Brumfield) Hx of tonsillectomy Social History Smoking Status: Never smoker ROS ROS ED Constitutional Constitutional ED: Denies chills or fever(s) Eyes Eyes: Denies change in vision or discharge from eye(s) ENT ENT ED: Denies discharge from eye(s), rhinorrhea or sore throat Cardiovascular Cardiovascular: Denies chest pain or palpitations Respiratory/Chest Respiratory/Chest: Denies cough or dyspnea Gastrointestinal Gastrointestinal: Reports abdominal pain, diarrhea, nausea and vomiting Genitourinary Genitourinary ED: Reports dysuria; Denies difficulty urinating Musculoskeletal Musculoskeletal: Denies back pain or extremity pain Integumentary Denies Abrasions or rash Neurologic Neurologic: Denies headache(s) or weakness Psychiatric Psychiatric: Denies anxiety or depression Allergic/Immunologic Allergic/Immunologic ED: Denies lip swelling or urticaria EXAM Physical Exam Const Vital Signs: 07/17/22 18:05 Temperature 98.4 F Temperature Source Temporal Pulse Rate 94 Respiratory Rate 18 Blood Pressure 111/71 Blood Pressure Mean 84 Pulse Ox 97 Oxygen Delivery Method Room Air Positive well nourished and well developed General Appearance ED: well developed HEENT Reports normocephalic and head/scalp atraumatic Eyes PERRL and EOMs intact bilaterally Neck supple Chest Wall inspection of chest normal and palpation of chest normal Resp normal respiratory effort and clear to auscultation bilaterally Cardio regular rate and regular rhythm GI GI Narrative: Mild tenderness right upper quadrant. No guarding or rebound. Hypoactive but present bowel sounds noted. Palpation: soft Extremity normal to inspection Neuro oriented x3 and no sensory deficits noted Sensorium / Orientation: alert Motor Exam: strength 5/5 throughout Psych mental status grossly normal Skin no rashes or lesions noted MDM MDM MDM Narrative Medical decision making narrative: Patient was given morphine, Toradol, Zofran, IV fluids. Lab work and urinalysis obtained. I did review the patient's urinalysis and CT flank from [place] yesterday. Lab Data Attestation: I reviewed the patient's lab results. Labs: Laboratory Results - last 24 hr 07/17/22 07/17/22 07/17/22 18:40 18:40 19:00 WBC 7.9 RBC 4.39 Hgb 14.2 Hct 39.3 MCV 89.5 MCH 32.3 H MCHC 36.1 H RDW Std Deviation 40.8 RDW Coeff of Billy 12.4 Plt Count 338 MPV 8.2 Immature Gran % (Auto) 0.400 Neut % (Auto) 75.3 H Lymph % (Auto) 17.7 L Edgar % (Auto) 6.3 Eos % (Auto) 0.0 Baso % (Auto) 0.3 Absolute Neuts (auto) 6.0 Absolute Lymphs (auto) 1.40 Nucleated RBC % 0 Sodium 137 Potassium 3.1 L Chloride 107 Carbon Dioxide 22.0 Anion Gap 8 BUN 10 Creatinine 0.74 Estim Creat Clear Calc 109.74 Est GFR (MDRD) Af Amer 124 Est GFR (MDRD) Non-Af 102 BUN/Creatinine Ratio 13.5 Glucose 91 Calcium 8.1 L Total Bilirubin 0.30 Direct Bilirubin 0.08 AST 12 L ALT 22 Alkaline Phosphatase 74 Total Protein 7.1 Albumin 3.1 L Globulin 4.0 Lipase 170 Urine Color Yellow Urine Clarity Cloudy Urine pH 6.[address] [place] 1.020 Urine Protein 30 H Urine Glucose (UA) Normal Urine Ketones 150 A* Urine Occult Blood 150 H Urine Nitrite Negative Urine Bilirubin Negative Urine Urobilinogen 1 H Ur Leukocyte Esterase 500 H Urine RBC 5-10 SEEN Urine WBC 25-50 SEEN Ur Squamous Epith Cells 10-25 SEEN Amorphous Sediment Urine Bacteria 3+ Urine Mucus 0 SEEN 07/17/22 20:15 WBC RBC Hgb Hct MCV MCH MCHC RDW Std Deviation RDW Coeff of Billy Plt Count MPV Immature Gran % (Auto) Neut % (Auto) Lymph % (Auto) Edgar % (Auto) Eos % (Auto) Baso % (Auto) Absolute Neuts (auto) Absolute Lymphs (auto) Nucleated RBC % Sodium Potassium Chloride Carbon Dioxide Anion Gap BUN Creatinine Estim Creat Clear Calc Est GFR (MDRD) Af Amer Est GFR (MDRD) Non-Af BUN/Creatinine Ratio Glucose Calcium Total Bilirubin Direct Bilirubin AST ALT Alkaline Phosphatase Total Protein Albumin Globulin Lipase Urine Color Yellow Urine Clarity Cloudy Urine pH 5.[address] [place] 1.025 Urine Protein 30 H Urine Glucose (UA) Normal Urine Ketones 150 A* Urine Occult Blood 150 H Urine Nitrite Negative Urine Bilirubin 1 H Urine Urobilinogen 1 H Ur Leukocyte Esterase 500 H Urine RBC 0-5 SEEN Urine WBC 25-50 SEEN Ur Squamous Epith Cells 10-25 SEEN Amorphous Sediment 2+ Urine Bacteria 2+ Urine Mucus 0 SEEN Treatment and Re-Evaluation Narrative: CBC is unremarkable with normal white count. No left shift. Chemistry studies significant only for potassium of 3.1. LFTs and lipase are unremarkable. Initial urinalysis was contaminated with 10-25 epithelial cells. 3+ bacteria is noted along with 25-50 white cells. Nitrites are negative. 150 ketones are noted. Test results are discussed with patient and family at bedside. She is still complaining of epigastric pain. I gave her a dose of Prilosec and asked her to give me a second urine sample and discussed the importance of using the wipes and getting a clean sample. Second sample is obtained and unfortunately remains contaminated with 10-25 epithelial cells. She has 2+ bacteria with 25-50 white cells. Because patient is having significant dysuria I will cover her with 3 days of an antibiotic. She will be written for potassium replacement. I will write her for short course of [place] and Zofran to help with pain and nausea. She is to follow with her primary care physician. I reviewed the CT that was performed yesterday and do not feel repeat imaging is needed tonight. Discharge Plan Triage Chief Complaint: Flank Pain ED Provider: lFor Salguero Dx/Rx/DC Orders Clinical Impression: Abdominal pain, Dysuria, Hypokalemia Instructions: Dysuria, ED Flank Pain, Uncertain Cause, ED Hypokalemia Prescriptions: New potassium chloride 20 mEq tablet extended release 20 meq PO BID Qty: 8 0RF ondansetron 4 mg tablet,disintegrating 4 mg PO Q8H PRN (Reason: nausea and vomiting) Qty: 10 0RF hydrocodone-acetaminophen 5-325 mg tablet 1 tab PO Q6H PRN (Reason: pain) 3 Days Qty: 10 0RF sulfamethoxazole-trimethoprim [Bactrim DS] 800-160 mg tablet 1 tab PO BID Qty: 6 0RF No Action citalopram 10 MG tablet 10 mg PO DAILY acetaminophen 500 MG tablet 500 - 1,000 mg PO Q6H PRN PRN (Reason: Headache) propranolol 10 MG tablet 10 mg PO BID ibuprofen 200 MG tablet 600 - 800 mg PO Q6H PRN PRN (Reason: Pain) ondansetron 4 MG tablet 4 mg PO Q8H PRN PRN (Reason: Nausea) fluticasone propionate 1 SPRAY spray,suspension 1 - 2 spray NASAL DAILY cholecalciferol (vitamin D3) 5,000 UNIT capsule 5,000 unit PO DAILY [id number] [Headache Relief ([id number])] 1 EACH tablet 1 ea PO BID PRN (Reason: Headache) buspirone 15 MG tablet 15 mg PO BID PRN (Reason: Anxiety) B-complex with vitamin C [Super B Complex-Vitamin C] 1 EACH tablet 1 ea PO DAILY topiramate 50 MG tablet 50 mg PO BID cyclobenzaprine 7.5 MG tablet 7.5 mg PO TID PRN (Reason: Muscle Spasm) magnesium oxide 500 MG capsule 500 mg PO DAILY ascorbic acid (vitamin C) 500 MG capsule 500 mg PO DAILY elderberry fruit and flower 1 EACH capsule 1 - 2 ea PO DAILY Desogestrel-Ethinyl Estradiol [Apri 28 Day Tablet] 1 EACH tablet 1 ea PO DAILY aripiprazole 2 MG tablet 2 mg PO DAILY Primary Care Provider: Fani Fisher Referrals: [facility] Doctor,Out of [Non-Staff] - 5-7 Days Disposition Disposition: Home, Self Care
[2022-07-17] MEDS: Ketorolac 30 MG/ML Syringe IV (18:38)
[2022-07-17] MEDS: 0.9% Normal Saline 1,000 ML 1000 ML IV (18:38)
[2022-07-17] MEDS: Ondansetron 4 MG/2 ML Vial IV (18:38)
[2022-07-17] MEDS: Morphine 4 MG/ML Syringe IV (18:39)
[2022-07-17 18:58] LABS: Basophil# 0.02 X10^3/uL; Basophil% 0.3 % (0-1); Hematocrit 39.3 % (37-47); Hemoglobin 14.2 g/dL (12.0-15.0); Lymphocyte % 17.7 % (19-41); Mean Corp Hgb Conc 36.1 g/dL (32-36); Mean Corpuscular Hgb 32.3 pg (27.0-32.0); Mean Corpuscular Volume 89.5 fL (81-99); Mean Platelet Vol. 8.2 fl (6.2-12.0); Monocyte% 6.3 % (0-10); NRBC Flagged by Analyzer 0 % (0-5); Neutrophil # 5.96 X10^3/uL (2.7-7.7); Neutrophil % 75.3 % (47-70); Platelet Count 338 K/mm3 (150-450); RBC Distribution Width CV 12.4 % (11.6-14.6); RBC Distribution Width SD 40.8 fl (35.1-43.9); Red Blood Count 4.39 M/mm3 (4.2-5.4); White Blood Count 7.9 K/mm3 (4.4-11.0)
[2022-07-17 19:11] LABS: Mucous, Urine 0 SEEN /hpf (<or=2+)
[2022-07-17 19:13] LABS: AST(SGOT) 12 U/L (15-37); Alanine Aminotransfer ALT/SGPT 22 U/L (13-56); Albumin, Serum 3.1 g/dL (3.2-5.0); Alkaline Phosphatase 74 U/L (45-117); Anion Gap 8 (5-15); BUN 10 mg/dL (7-18); BUN/Creat Ratio 13.5 RATIO (10-20); Bilirubin, Direct 0.08 mg/dL (0.00-0.30); Calcium,Total 8.1 mg/dL (8.5-10.1); Chloride 107 mmol/L (98-107); Creatinine, Serum 0.74 mg/dL (0.55-1.02); EST Glomerular Filtration Rate 102 mL/min (>60); Est Glom Filt Rate - Afr Amer 124 mL/min (>60); Estimated Creatinine Clearance 109.74 ml/min; Glucose 91 mg/dL (74-106); Lipase 170 U/L (73-393); Potassium 3.1 mmol/L (3.5-5.1); Protein, Total 7.1 g/dL (6.4-8.2); Sodium Level 137 mmol/L (136-145)
[2022-07-17 19:14] LABS: Color, Urine Yellow (Yellow); Glucose, Dipstick Normal (Normal); Leukocyte Esterase-Dipstick 500 /ul (Negative); Nitrite-Dipstick Negative (Negative); Occult Blood-Urine 150 /ul (Negative); Protein-Dipstick 30 mg/dl (Negative); Urine Bilirubin Dipstick Negative (Negative); Urine Clarity Cloudy (Clear); Urine Urobilinogen 1 mg/dl (Normal)
[2022-07-17 19:18] LABS: Ketone-Dipstick 150 mg/dl (Negative)
[2022-07-17 19:24] LABS: Bacteria 3+ /hpf (None Seen); Squamous Epithelial Cells - UA 10-25 SEEN /hpf (5-10); White Blood Cells 25-50 SEEN /hpf (0-5)
[2022-07-17 19:25] LABS: Red Blood Cells-Urine 5-10 SEEN /hpf (0-5)
[2022-07-17 20:27] LABS: Mucous, Urine 0 SEEN /hpf (<or=2+)
[2022-07-17 20:44] LABS: Glucose, Dipstick Normal (Normal); Leukocyte Esterase-Dipstick 500 /ul (Negative); Nitrite-Dipstick Negative (Negative); Occult Blood-Urine 150 /ul (Negative); Protein-Dipstick 30 mg/dl (Negative); Specific Gravity, Urine 1.025 (1.002-1.030); Urine Urobilinogen 1 mg/dl (Normal)
[2022-07-17 20:47] LABS: Color, Urine Yellow (Yellow); Urine Bilirubin Dipstick 1 mg/dL (Negative); Urine Clarity Cloudy (Clear)
[2022-07-17 20:48] LABS: Ketone-Dipstick 150 mg/dl (Negative)
[2022-07-17 20:49] LABS: Amorphous Sediment 2+
[2022-07-17 20:50] LABS: Bacteria 2+ /hpf (None Seen); Red Blood Cells-Urine 0-5 SEEN /hpf (0-5); Squamous Epithelial Cells - UA 10-25 SEEN /hpf (5-10); White Blood Cells 25-50 SEEN /hpf (0-5)
[2022-07-17] MEDS: Smz/Tmp Ds Tablet 1 TABLET PO (21:18)
== END 2022-07-17 21:48 | disposition home or self-care (01) ==
PROVIDERS: Emergency Provider Emergency Medicine; PCP Family Medicine; Visit Provider Emergency Medicine
DX: R11.10 Vomiting, unspecified (principal); R30.0 Dysuria; E87.6 Hypokalemia; R31.9 Hematuria, unspecified; R10.11 Right upper quadrant pain
CPT/HCPCS: 80048; 80076; 81001; 83690; 85025; 96361; 96374; 96375; 99283; J7030; J7040; A4216; J2405

== ENCOUNTER 2022-07-19 12:42 | Emergency (ER) | payer MEDICARE, MEDICAID, SELFPAY ==
[2022-07-19 12:43] VITALS: BP 106/66; PULSE 67; RESP 15; TEMP 36.8; O2SAT 98; BMI 37.1
--- NOTE | 2022-07-19 13:19 | US_ITS ---
STUDY: ABDOMINAL ULTRASOUND - RIGHT UPPER QUADRANT REASON FOR VISIT: Female, 22 years old RUQ pain- RT FLANK PAIN TECHNIQUE: Ultrasound evaluation of the right upper quadrant was performed with real-time and static vang-scale imaging. TECHNICAL QUALITY: Adequate. COMPARISON: None. FINDINGS: Liver: The liver is mildly enlarged and measures 17 cm. There is normal echogenicity of the liver. The bile ducts are within normal limits. There is hepatic color flow. The direction of portal flow is hepatopetal. There is no demonstrated mass lesion. Gallbladder: Normal distended gallbladder. The gallbladder wall measures 3 mm. There is a positive sonographic Sherwood''s sign. There is no pericholecystic fluid. There are no gallstones. Common Bile Duct (C.B.D.): The common bile duct measures 2 mm. Pancreas: Normal size of the head, body and tail of the pancreas. There is normal echogenicity of the pancreas. There is no demonstrated pancreatic mass or cyst. Small linear fluid collection anterior to the pancreatic head. Right Kidney: Normal size of the right kidney. The right kidney measures 10.8 cm x 5.9 cm x 4.9 cm. Normal renal cortex. The right cortex measures 1.1 cm. There is no demonstrated renal mass or cyst. There is no right hydronephrosis. US/Gallbladder IMPRESSION: Small linear fluid collection anterior to the pancreatic head. No evidence of cholelithiasis. Electronically Signed: Gulshan Leal MD at 14:29 EST ,
--- NOTE | 2022-07-19 13:24 | EDS_ITS ---
HPI <PRATIBHA Weaver - Last Filed: 07/19/22 22:01> HPI - Female History of Present Illness Chief Complaint: Flank Pain Narrative Narrative: Patient presents today with right upper quadrant abdominal pain that radiates into her back that started night. Eating and drinking makes the pain worse and causes her to vomit. She presented to [facility] emergency department on Tuesday where they performed a CT scan of her flank that showed a small hiatal hernia with no evidence of a kidney stone. They also performed a UA which showed hematuria but no signs of infection. She was ultimately discharged with Bentyl and Zofran. Patient then presented to [facility] ED on Tuesday for the same complaint and dysuria. Patient was ultimately discharged home with pain and nausea control and antibiotics for acute cystitis. She was seen by her PCP this morning who stated she needs to return to the ED due to no relief of symptoms and dehydration. Patient no longer has dysuria. She denies fever, previous abdominal surgeries, hematemisis. [facility] <PRATIBHA Weaver - Last Filed: 07/19/22 22:01> [facility] Medical History Anxiety Depression Hip abductor tendonitis Home Medications B-complex with vitamin C (Super B Complex-Vitamin C tablet) 1 ea PO DAILY 11/03/18 [History Last Taken Unknown] Desogestrel-Ethinyl Estradiol [Apri 28 Day Tablet] 1 ea PO DAILY 11/03/18 [History Last Taken Unknown] acetaminophen 500 mg tablet 500 - 1,000 mg PO Q6H PRN PRN Headache 11/03/18 [History Last Taken Unknown] aripiprazole 2 mg tablet 2 mg PO DAILY 11/03/18 [History Last Taken Unknown] ascorbic acid (vitamin C) 500 mg capsule 500 mg PO DAILY 11/03/18 [History Last Taken Unknown] yamipsw-thjbztxmmakaz-dgpfnsvo 250 mg-250 mg-65 mg tablet (Headache Relief (QQA-mstmlifaawbx-nvvkdfzc)) 1 ea PO BID PRN Headache 11/03/18 [History Last Taken Unknown] buspirone 15 mg tablet 15 mg PO BID PRN Anxiety 11/03/18 [History Last Taken Unknown] cholecalciferol (vitamin D3) 125 mcg (5,000 unit) capsule 5,000 unit PO DAILY 11/03/18 [History Last Taken Unknown] citalopram 10 mg tablet 10 mg PO DAILY 11/03/18 [History Last Taken Unknown] cyclobenzaprine 7.5 mg tablet 7.5 mg PO TID PRN Muscle Spasm 11/03/18 [History Last Taken Unknown] elderberry fruit 460 mg-elderberry flower 115 mg capsule 1 - 2 ea PO DAILY 11/03/18 [History Last Taken Unknown] fluticasone propionate 50 mcg/actuation nasal spray,suspension 1 - 2 spray DAILY 11/03/18 [History Last Taken Unknown] ibuprofen 200 mg tablet 600 - 800 mg PO Q6H PRN PRN Pain 11/03/18 [History Last Taken Unknown] magnesium oxide 500 mg capsule 500 mg PO DAILY 11/03/18 [History Last Taken Unknown] ondansetron 4 mg disintegrating tablet 4 mg PO Q8H PRN PRN Nausea 11/03/18 [History Last Taken Unknown] propranolol 10 mg tablet 10 mg PO BID 11/03/18 [History Last Taken Unknown] topiramate 50 mg tablet 50 mg PO BID 11/03/18 [History Last Taken Unknown] hydrocodone-acetaminophen 5-325mg 5mg-325mg 1 tab PO Q6H PRN pain 3 days #10 tabs 07/17/22 [Rx Last Taken Unknown] ondansetron 4 mg disintegrating tablet 4 mg PO Q8H PRN nausea and vomiting #10 tabs 07/17/22 [Rx Last Taken Unknown] potassium chloride 20 mEq tablet,extended release 20 meq PO BID #8 tabs 07/17/22 [Rx Last Taken Unknown] sulfamethoxazole 800 mg-trimethoprim 160 mg tablet (Bactrim DS) 1 tab PO BID #6 tabs 07/17/22 [Rx Last Taken Unknown] ondansetron 4 mg disintegrating tablet 4 mg PO Q8H PRN nausea and vomiting #10 tabs 07/19/22 [Rx Last Taken Unknown] ondansetron 4 mg disintegrating tablet 4 mg PO Q8H PRN nausea and vomiting #10 tabs 07/19/22 [Rx Last Taken Unknown] pantoprazole 40 mg tablet,delayed release (Protonix) 40 mg PO DAILY #30 tabs 07/19/22 [Rx Last Taken Unknown] sucralfate 100 mg/mL oral suspension (Carafate) 10 ml PO BID #420 mL 07/19/22 [Rx Last Taken Unknown] Allergy/AdvReac Type Severity Reaction Status Date / Time azithromycin AdvReac Diarrhea Verified 07/19/22 12:43 Surgical History Hx of tonsillectomy Social History Smoking Status: Never smoker ROS <PRATIBHA Weaver - Last Filed: 07/19/22 22:01> ROS ED Constitutional Constitutional ED: Denies chills, fever(s) or sweats Eyes Eyes: Denies blurry vision, change in vision or diplopia ENT ENT ED: Denies nasal congestion, rhinorrhea or sore throat Cardiovascular Cardiovascular: Denies chest pain, palpitations or racing heartbeat Respiratory/Chest Respiratory/Chest: Denies cough, dyspnea, dyspnea on exertion, shortness of breath at rest or shortness of breath with exertion Gastrointestinal Gastrointestinal: Reports abdominal pain, diarrhea, nausea and vomiting; Denies constipation, hematemesis, hematochezia or melena Genitourinary Genitourinary ED: Denies dysuria, hematuria or urinary frequency Musculoskeletal Musculoskeletal: Reports back pain; Denies arthralgias, myalgias or neck pain Integumentary Denies abscess, Abrasions or rash Neurologic Neurologic: Denies headache(s), paresthesias or weakness Psychiatric Psychiatric: Denies anxiety or depression EXAM <PRATIBHA Weaver - Last Filed: 07/19/22 22:01> Physical Exam Const Vital Signs: 07/19/22 12:43 07/19/22 13:43 07/19/22 14:00 Temperature 98.2 F Temperature Source Temporal Pulse Rate 67 Respiratory Rate 15 14 16 Blood Pressure 106/66 Blood Pressure Mean 79 Pulse Ox 98 Oxygen Delivery Method Room Air 07/19/22 15:00 07/19/22 15:54 Temperature Temperature Source Pulse Rate 74 Respiratory Rate 14 16 Blood Pressure 136/88 H Blood Pressure Mean 104 Pulse Ox 95 Oxygen Delivery Method Room Air Positive well developed and obese General Appearance ED: well developed Nutritional Appearance: obese HEENT Reports moist mucous membranes Eyes PERRL and EOMs intact bilaterally Neck no lymphadenopathy and supple Chest Wall inspection of chest normal and palpation of chest normal Resp normal respiratory effort and clear to auscultation bilaterally Cardio regular rate, regular rhythm and no murmurs GI non-distended and no masses GI Narrative: Patient has tenderness to palpation in the right upper quadrant. Positive Sherwood sign. Negative McBurney's point tenderness. Auscultation: normoactive bowel sounds Back/Spine General Back: CVA tenderness right Extremity normal to inspection and full ROM General Extremety ED: Negative for edema or tenderness General Extremity: Negative for edema Neuro oriented x3, CN's II-XII intact bilaterally and no sensory deficits noted Sensorium / Orientation: alert Motor Exam: strength 5/5 throughout Psych mental status grossly normal Skin no rashes or lesions noted and no wounds General Skin Exam: Negative for jaundice <Dr. Bran Almazan DO - Last Filed: 07/19/22 16:24> Physical Exam Const Vital Signs: 07/19/22 12:43 07/19/22 13:43 07/19/22 14:00 Temperature 98.2 F Temperature Source Temporal Pulse Rate 67 Respiratory Rate 15 14 16 Blood Pressure 106/66 Blood Pressure Mean 79 Pulse Ox 98 Oxygen Delivery Method Room Air 07/19/22 15:00 07/19/22 15:54 Temperature Temperature Source Pulse Rate 74 Respiratory Rate 14 16 Blood Pressure 136/88 H Blood Pressure Mean 104 Pulse Ox 95 Oxygen Delivery Method Room Air [facility] <PRATIBHA Weaver - Last Filed: 07/19/22 22:01> [facility] Narrative Medical decision making narrative: Patient has been given 2 L of fluids, Zofran, and morphine. Upon reexamination patient stated her abdominal pain greatly improved. Right upper quadrant ultrasound was performed and shows small linear fluid collection anterior to the pancreatic head.? No evidence of cholelithiasis. Lipase is within normal limits. CT of the abdomen and pelvis that was performed on Tuesday shows no obstructive uropathy and liquid stool in the large bowel that could reflect diarrheal illness. Patient admitted to having some diarrhea over the past few days. Patient has been given a prescription for Protonix, Zofran, and Carafate. She has been given a GI referral. She has been given return instructions. Lab Data Attestation: I reviewed the patient's lab results. Lab results narrative: Lipase within normal limits. CBC shows very minimal changes compared to last visit no elevated white blood count. Urinalysis shows elevated urine ketones, hematuria, elevated leukocytes but does have some degree of contamination. Labs: Laboratory Results - last 24 hr 07/19/22 07/19/22 07/19/22 13:25 13:25 13:25 WBC 7.7 RBC 4.19 L Hgb 12.8 Hct 37.3 MCV 89.0 MCH 30.5 MCHC 34.3 RDW Std Deviation 40.9 RDW Coeff of Billy 12.5 Plt Count 268 MPV 8.0 Immature Gran % (Auto) 0.400 Neut % (Auto) 77.5 H Lymph % (Auto) 15.2 L [place] % (Auto) 6.4 Eos % (Auto) 0.1 Baso % (Auto) 0.4 Absolute Neuts (auto) 6.0 Absolute Lymphs (auto) 1.17 Nucleated RBC % 0 Sodium 138 Potassium 3.6 Chloride 109 H Carbon Dioxide 19.0 L Anion Gap 10 BUN 10 Creatinine 0.71 Estim Creat Clear Calc 114.38 Est GFR (MDRD) Af Amer 130 Est GFR (MDRD) Non-Af 107 BUN/Creatinine Ratio 14.1 Glucose 88 Calcium 8.2 L Total Bilirubin 0.40 AST 12 L ALT 18 Alkaline Phosphatase 66 Total Protein 6.7 Albumin 2.9 L Globulin 3.8 Albumin/Globulin Ratio 0.8 L Lipase 294 Serum , Qual Urine Color Urine Clarity Urine pH Ur Specific [place] Urine Protein Urine Glucose (UA) Urine Ketones Urine Occult Blood Urine Nitrite Urine Bilirubin Urine Urobilinogen Ur Leukocyte Esterase Urine RBC Urine WBC Ur Squamous Epith Cells Urine Bacteria Hyaline Casts Urine Mucus 07/19/22 07/19/22 13:30 13:48 WBC RBC Hgb Hct MCV MCH MCHC RDW Std Deviation RDW Coeff of Billy Plt Count MPV Immature Gran % (Auto) Neut % (Auto) Lymph % (Auto) [place] % (Auto) Eos % (Auto) Baso % (Auto) Absolute Neuts (auto) Absolute Lymphs (auto) Nucleated RBC % Sodium Potassium Chloride Carbon Dioxide Anion Gap BUN Creatinine Estim Creat Clear Calc Est GFR (MDRD) Af Amer Est GFR (MDRD) Non-Af BUN/Creatinine Ratio Glucose Calcium Total Bilirubin AST ALT Alkaline Phosphatase Total Protein Albumin Globulin Albumin/Globulin Ratio Lipase Serum , Qual NEGATIVE Urine Color Abby Urine Clarity Sl. Cloudy Urine pH 6.0 Ur Specific [place] 1.020 Urine Protein 30 H Urine Glucose (UA) Normal Urine Ketones 150 A* Urine Occult Blood 150 H Urine Nitrite Negative Urine Bilirubin 3 H Urine Urobilinogen 4 H Ur Leukocyte Esterase 500 H Urine RBC 0-5 SEEN Urine WBC 5-10 SEEN Ur Squamous Epith Cells 5-10 SEEN Urine Bacteria 4+ Hyaline Casts 0-5 SEEN Urine Mucus 2+ Radiography Diagnostic Testing: Clinical Impression(s) from Imaging Studies Gallbladder Ultrasound 07/19/22 13:19 IMPRESSION: Small linear fluid collection anterior to the pancreatic head. No evidence of cholelithiasis. Electronically Signed: Gulshan Leal MD at 14:29 EST , Ultrasound reviewed and I agree with radiologist impressions. This has also been reviewed by attending ED physician. <Dr. Bran Almazan, DO - Last Filed: 07/19/22 16:24> [facility] Lab Data Labs: Laboratory Results - last 24 hr 07/19/22 07/19/22 07/19/22 13:25 13:25 13:25 WBC 7.7 RBC 4.19 L Hgb 12.8 Hct 37.3 MCV 89.0 MCH 30.5 MCHC 34.3 RDW Std Deviation 40.9 RDW Coeff of Billy 12.5 Plt Count 268 MPV 8.0 Immature Gran % (Auto) 0.400 Neut % (Auto) 77.5 H Lymph % (Auto) 15.2 L [place] % (Auto) 6.4 Eos % (Auto) 0.1 Baso % (Auto) 0.4 Absolute Neuts (auto) 6.0 Absolute Lymphs (auto) 1.17 Nucleated RBC % 0 Sodium 138 Potassium 3.6 Chloride 109 H Carbon Dioxide 19.0 L Anion Gap 10 BUN 10 Creatinine 0.71 Estim Creat Clear Calc 114.38 Est GFR (MDRD) Af Amer 130 Est GFR (MDRD) Non-Af 107 BUN/Creatinine Ratio 14.1 Glucose 88 Calcium 8.2 L Total Bilirubin 0.40 AST 12 L ALT 18 Alkaline Phosphatase 66 Total Protein 6.7 Albumin 2.9 L Globulin 3.8 Albumin/Globulin Ratio 0.8 L Lipase 294 Serum , Qual Urine Color Urine Clarity Urine pH Ur Specific [place] Urine Protein Urine Glucose (UA) Urine Ketones Urine Occult Blood Urine Nitrite Urine Bilirubin Urine Urobilinogen Ur Leukocyte Esterase Urine RBC Urine WBC Ur Squamous Epith Cells Urine Bacteria Hyaline Casts Urine Mucus 07/19/22 07/19/22 13:30 13:48 WBC RBC Hgb Hct MCV MCH MCHC RDW Std Deviation RDW Coeff of Billy Plt Count MPV Immature Gran % (Auto) Neut % (Auto) Lymph % (Auto) [place] % (Auto) Eos % (Auto) Baso % (Auto) Absolute Neuts (auto) Absolute Lymphs (auto) Nucleated RBC % Sodium Potassium Chloride Carbon Dioxide Anion Gap BUN Creatinine Estim Creat Clear Calc Est GFR (MDRD) Af Amer Est GFR (MDRD) Non-Af BUN/Creatinine Ratio Glucose Calcium Total Bilirubin AST ALT Alkaline Phosphatase Total Protein Albumin Globulin Albumin/Globulin Ratio Lipase Serum , Qual NEGATIVE Urine Color Abby Urine Clarity Sl. Cloudy Urine pH 6.0 Ur Specific [place] 1.020 Urine Protein 30 H Urine Glucose (UA) Normal Urine Ketones 150 A* Urine Occult Blood 150 H Urine Nitrite Negative Urine Bilirubin 3 H Urine Urobilinogen 4 H Ur Leukocyte Esterase 500 H Urine RBC 0-5 SEEN Urine WBC 5-10 SEEN Ur Squamous Epith Cells 5-10 SEEN Urine Bacteria 4+ Hyaline Casts 0-5 SEEN Urine Mucus 2+ Radiography Diagnostic Testing: Clinical Impression(s) from Imaging Studies Gallbladder Ultrasound 07/19/22 13:19 IMPRESSION: Small linear fluid collection anterior to the pancreatic head. No evidence of cholelithiasis. Electronically Signed: Gulshan Leal MD at 14:29 EST , Treatment and Re-Evaluation Narrative: I have personally performed a face to face assessment of the patient and have reviewed the KALEB Note. I performed a substantive portion of the visit including all aspects of the following. My conte findings include: History: Patient presents with right flank pain that became worse again today. Patient was seen here 2 days ago for this. Patient was also seen at a different emergency department for this 4 days ago. Patient had a CT scan done at that time which did not show any evidence of ureteral calculus or acute intra- abdominal abnormality. Patient had lab work 2 days ago which showed a questionable urinary tract infection. Patient was placed on antibiotics for that. Patient states she is not any better today. Patient followed up with her primary care physician today who referred the patient back to the emergency department. Exam: Vital signs are stable. Patient is afebrile. Patient is in no acute distress. Oral mucosa is pink and moist. Neck is supple. Trachea is midline. There is no JVD. Heart was regular rate and rhythm. Lungs are clear and equal bilaterally. Abdomen is soft. Bowel sounds are normal. There is right upper quadrant and right CVA tenderness. There is no rebound or guarding noted. Cranial nerves II through XII are intact. There are no focal motor or sensory deficits. Medical Decision Making: Patient was given IV fluids. CBC was within normal limits. Comprehensive metabolic profile showed a slightly low carbon dioxide of 19. Anion gap was normal. Lipase was normal. Serum hCG was negative. Urinalysis shows urine ketones of 150. Occult blood was 150. Leukocyte est erase was 500. There is 4+ bacteria. There are 5-10 white blood cells and 0-5 red blood cells. There are 5-10 epithelial cells. Right upper quadrant ultrasound was obtained. There is a small linear fluid collection anterior to the pancreatic head. There is no evidence of cholelithiasis or cholecystitis. This was interpreted by the radiologist and reviewed by myself. Patient was advised of her findings. Patient was advised that she may need follow-up with gastroenterology. Patient was advised that this could be viral illness, inflammatory bowel disease, or peptic ulcer disease. Patient was given prescription for omeprazole, Zofran, and Carafate. Patient understood and was agreeable with this plan. All questions were answered. Discharge Plan Triage Chief Complaint: Flank Pain ED Midlevel Provider: Thalia Mtz ED Provider: Bran Almazan Dx/Rx/DC Orders Clinical Impression: Abdominal pain, Nausea & vomiting Instructions: Abdominal Pain Prescriptions: New ondansetron 4 mg tablet,disintegrating 4 mg PO Q8H PRN (Reason: nausea and vomiting) Qty: 10 0RF ondansetron 4 mg tablet,disintegrating 4 mg PO Q8H PRN (Reason: nausea and vomiting) Qty: 10 0RF sucralfate [Carafate] 100 mg/mL suspension 10 ml PO BID Qty: 420 0RF Rx Instructions: Take 1 hour before meals on an empty stomach. pantoprazole [Protonix] 40 mg tablet,delayed release (DR/EC) 40 mg PO DAILY Qty: 30 0RF No Action citalopram 10 MG tablet 10 mg PO DAILY acetaminophen 500 MG tablet 500 - 1,000 mg PO Q6H PRN PRN (Reason: Headache) propranolol 10 MG tablet 10 mg PO BID ibuprofen 200 MG tablet 600 - 800 mg PO Q6H PRN PRN (Reason: Pain) ondansetron 4 MG tablet 4 mg PO Q8H PRN PRN (Reason: Nausea) fluticasone propionate 1 SPRAY spray,suspension 1 - 2 spray NASAL DAILY cholecalciferol (vitamin D3) 5,000 UNIT capsule 5,000 unit PO DAILY qqrkqki-tfqnczhieklbd-wffhfhkq [Headache Relief (KAH-[id number])] 1 EACH tablet 1 ea PO BID PRN (Reason: Headache) buspirone 15 MG tablet 15 mg PO BID PRN (Reason: Anxiety) B-complex with vitamin C [Super B Complex-Vitamin C] 1 EACH tablet 1 ea PO DAILY topiramate 50 MG tablet 50 mg PO BID cyclobenzaprine 7.5 MG tablet 7.5 mg PO TID PRN (Reason: Muscle Spasm) magnesium oxide 500 MG capsule 500 mg PO DAILY ascorbic acid (vitamin C) 500 MG capsule 500 mg PO DAILY elderberry fruit and flower 1 EACH capsule 1 - 2 ea PO DAILY Desogestrel-Ethinyl Estradiol [Apri 28 Day Tablet] 1 EACH tablet 1 ea PO DAILY aripiprazole 2 MG tablet 2 mg PO DAILY potassium chloride 20 mEq tablet extended release 20 meq PO BID Qty: 8 0RF ondansetron 4 mg tablet,disintegrating 4 mg PO Q8H PRN (Reason: nausea and vomiting) Qty: 10 0RF hydrocodone-acetaminophen 5-325 mg tablet 1 tab PO Q6H PRN (Reason: pain) 3 Days Qty: 10 0RF sulfamethoxazole-trimethoprim [Bactrim DS] 800-160 mg tablet 1 tab PO BID Qty: 6 0RF Primary Care Provider: Fani Fisher Referrals: Fani Fisher MD [Primary Care Provider] - Friend,DO Cali [Med Staff - Active Staff] - 3-5 Days if not improving Activity Restrictions/Additional Instructions: Please follow-up with gastroenterology if pain persist to investigate this further. Please return if any worsening of symptoms. Disposition Disposition: Home, Self Care Discharge Date/Time: 07/19/22 16:34
[2022-07-19 13:32] LABS: Absolute Lymphocyte Count 1.17 X10^3/uL (0.83-4.51); Basophil# 0.03 X10^3/uL; Basophil% 0.4 % (0-1); Eosinophil# 0.01 X10^3/uL; Eosinophils% 0.1 % (0-5); Hematocrit 37.3 % (37-47); Hemoglobin 12.8 g/dL (12.0-15.0); Lymphocyte # 1.17 X10^3/ul (0.83-4.51); Lymphocyte % 15.2 % (19-41); Mean Corp Hgb Conc 34.3 g/dL (32-36); Mean Corpuscular Hgb 30.5 pg (27.0-32.0); Monocyte# 0.49 X10^3/uL; Monocyte% 6.4 % (0-10); NRBC Flagged by Analyzer 0 % (0-5); Neutrophil # 5.97 X10^3/uL (2.7-7.7); Neutrophil % 77.5 % (47-70); Platelet Count 268 K/mm3 (150-450); RBC Distribution Width CV 12.5 % (11.6-14.6); RBC Distribution Width SD 40.9 fl (35.1-43.9); Red Blood Count 4.19 M/mm3 (4.2-5.4); White Blood Count 7.7 K/mm3 (4.4-11.0)
[2022-07-19] MEDS: Ondansetron 4 MG/2 ML Vial IV (13:42)
[2022-07-19] MEDS: Morphine 2 MG/ML Syringe IV (13:42)
[2022-07-19 13:43] VITALS: RESP 14
[2022-07-19] MEDS: 0.9% Normal Saline 1,000 ML 999 ML IV ×2 (13:43→15:26)
[2022-07-19 13:51] LABS: Color, Urine Amber (Yellow); Glucose, Dipstick Normal (Normal); Leukocyte Esterase-Dipstick 500 /ul (Negative); Nitrite-Dipstick Negative (Negative); Occult Blood-Urine 150 /ul (Negative); Protein-Dipstick 30 mg/dl (Negative); Urine Clarity Sl. Cloudy (Clear); Urine Urobilinogen 4 mg/dl (Normal)
[2022-07-19 13:54] LABS: Urine Bilirubin Dipstick 3 mg/dL (Negative)
[2022-07-19 13:55] LABS: Ketone-Dipstick 150 mg/dl (Negative)
[2022-07-19 13:56] LABS: ALB/GLOB Ratio 0.8 RATIO (0.9-2.4); AST(SGOT) 12 U/L (15-37); Alanine Aminotransfer ALT/SGPT 18 U/L (13-56); Albumin, Serum 2.9 g/dL (3.2-5.0); Alkaline Phosphatase 66 U/L (45-117); Anion Gap 10 (5-15); BUN 10 mg/dL (7-18); BUN/Creat Ratio 14.1 RATIO (10-20); Calcium,Total 8.2 mg/dL (8.5-10.1); Chloride 109 mmol/L (98-107); Creatinine, Serum 0.71 mg/dL (0.55-1.02); EST Glomerular Filtration Rate 107 mL/min (>60); Est Glom Filt Rate - Afr Amer 130 mL/min (>60); Estimated Creatinine Clearance 114.38 ml/min; Globulin 3.8 g/dL (2.2-4.2); Glucose 88 mg/dL (74-106); Potassium 3.6 mmol/L (3.5-5.1); Protein, Total 6.7 g/dL (6.4-8.2); Sodium Level 138 mmol/L (136-145)
[2022-07-19 13:59] LABS: Internal QC Validated? YES +Cl - CLEAR BKGD; Pregnancy, Serum, hCG Quali. NEGATIVE Negative
[2022-07-19 14:00] VITALS: RESP 16
[2022-07-19 14:00] LABS: Bacteria 4+ /hpf (None Seen); Hyaline Cast 0-5 SEEN /lpf (0-5); Squamous Epithelial Cells - UA 5-10 SEEN /hpf (5-10); White Blood Cells 5-10 SEEN /hpf (0-5)
[2022-07-19 14:01] LABS: Mucous, Urine 2+ /hpf (<or=2+); Red Blood Cells-Urine 0-5 SEEN /hpf (0-5)
[2022-07-19 15:00] VITALS: BP 136/88; PULSE 74; RESP 14; O2SAT 95
[2022-07-19 15:11] LABS: Lipase 294 U/L (73-393)
[2022-07-19 15:54] VITALS: RESP 16
== END 2022-07-19 16:34 | disposition home or self-care (01) ==
PROVIDERS: Physician Assistant; Emergency Provider Emergency Medicine; PCP Family Medicine; Visit Provider Emergency Medicine
DX: R10.11 Right upper quadrant pain (principal); R11.2 Nausea with vomiting, unspecified; E66.9 Obesity, unspecified
CPT/HCPCS: 76705; 80053; 81001; 83690; 84703; 85025; 87086; 87088; 96361; 96374; 96375; 99283; J7030; A4216; J2405

== ENCOUNTER → 2022-09-01 | Outpatient (CLI) | payer MEDICARE, MEDICAID, SELFPAY ==
--- NOTE | 2022-09-01 09:40 | NM_ITS ---
CLINICAL: 22-year-old female with history of abdominal pain and nausea. RADIONUCLIDE HEPATOBILIARY SCINTIGRAPHY COMPARISON: Abdominal ultrasound report 07/19/2022 FINDINGS: Following the intravenous administration of 5.6 mCi of 99m Tc Mebrofenin, hepatobiliary images reveal: 1. Relatively prompt and homogeneous radiopharmaceutical concentration is noted by a normal sized liver. No parenchymal defects are identified. 2. Gallbladder activity is identified at 30 minutes post radiopharmaceutical administration. 3. Small intestinal tract is observed at 15 minutes following tracer injection. 4. Washout of the radiopharmaceutical by the hepatic parenchyma appears qualitatively normal. Cholecystokinin (0.02 ug/kg) was administered intravenously over a 30-minute period. The post CCK gallbladder ejection fraction calculated at 20 minutes following Cholecystokinin administration was noted to be 15.0 % (normal greater than 35%). MS/Hepatobilliary Img w/Pharm Int IMPRESSION: 1. ABNORMAL 99m Tc Mebrofenin hepatobiliary imaging examination with Cholecystokinin. A. A gallbladder ejection fraction calculated to be less than 35% following the administration of Cholecystokinin is consistent with the presence of functional hepatobiliary disease (gallbladder and/or sphincter of Oddi dyskinesia) and/or organic hepatobiliary disease (chronic acalculous cholecystitis and/or cystic duct syndrome) in patients with intermediate to high pretest probabilities of hepatobiliary illness. (Jesús Montes De Oca et al, Journal of Nuclear Medicine 32:1695, 1991). Electronically Signed: Sagar Mcfarland, at 19:46 EST ,
== END | disposition home or self-care (01) ==
LOC: NM 09:39
PROVIDERS: PCP Family Medicine; Referring Provider Internal Medicine Gastroenterology; Visit Provider Internal Medicine Gastroenterology
DX: R10.9 Unspecified abdominal pain (principal)
CPT/HCPCS: 78227; A9537; J2805

== ENCOUNTER 2022-09-04 20:50 | Emergency (ER) | payer MEDICARE, MEDICAID, SELFPAY ==
[2022-09-04 20:51] VITALS: BP 124/93; PULSE 89; RESP 16; TEMP 36.6; O2SAT 97; BMI 35.5
--- NOTE | 2022-09-04 21:11 | ED.VIS.GI ---
HPI HPI - GI History of Present Illness Chief Complaint: Abd Pain Detail of Chief Complaint: Upper quadrant abdominal pain for 2 to 3 days. Informant: patient and parent Abdominal Pain/Flank Pain Onset: Days Context: Gradual Onset Timing: Continuous Location: RUQ Current Severity: Moderate Maximum Severity: Moderate Worsened by: Food Relieved by: Nothing Nausea/Vomiting/Emesis GI Symptom: Positive for Nausea and Vomiting Severity: Mild Diarrhea/Melena/Hematochezia GI Symptom: Positive for Diarrhea Stool Quality: Positive for Loose Severity: Mild Associated Symptoms Associated Symptoms: Negative for Dysuria, Frequency, Hematuria or Urgency Narrative Narrative: 22-year-old female history of esophagitis, anxiety and depression, hiatal hernia. Recently has extensive work-up including CAT scans and ultrasounds and a HIDA scan of her right upper quadrant showing less than 35% ejection fraction concern for gallbladder disease. She had a HIDA scan done last week. She has not seen a surgeon yet. She has seen GI Dr. Kim. States 2 to 3 days ago started a right upper quadrant abdominal pain associated nausea vomiting and loose stools. No dysuria. No fever. Prior similar symptoms: Yes Recent Illness/Hospitalization: No PFSH PFSH Medical History Anxiety Depression Hip abductor tendonitis Home Medications B-complex with vitamin C (Super B Complex-Vitamin C tablet) 1 ea PO DAILY 11/03/18 [History Last Taken Unknown] Desogestrel-Ethinyl Estradiol [Apri 28 Day Tablet] 1 ea PO DAILY 11/03/18 [History Last Taken Unknown] acetaminophen 500 mg tablet 500 - 1,000 mg PO Q6H PRN PRN Headache 11/03/18 [History Last Taken Unknown] aripiprazole 2 mg tablet 2 mg PO DAILY 11/03/18 [History Last Taken Unknown] ascorbic acid (vitamin C) 500 mg capsule 500 mg PO DAILY 11/03/18 [History Last Taken Unknown] jupfkid-nykgykhsgkfzh-hiepjtez 250 mg-250 mg-65 mg tablet (Headache Relief (JWM-sjfnutdpgqmg-iddaukby)) 1 ea PO BID PRN Headache 11/03/18 [History Last Taken Unknown] buspirone 15 mg tablet 15 mg PO BID PRN Anxiety 11/03/18 [History Last Taken Unknown] cholecalciferol (vitamin D3) 125 mcg (5,000 unit) capsule 5,000 unit PO DAILY 11/03/18 [History Last Taken Unknown] citalopram 10 mg tablet 10 mg PO DAILY 11/03/18 [History Last Taken Unknown] cyclobenzaprine 7.5 mg tablet 7.5 mg PO TID PRN Muscle Spasm 11/03/18 [History Last Taken Unknown] elderberry fruit 460 mg-elderberry flower 115 mg capsule 1 - 2 ea PO DAILY 11/03/18 [History Last Taken Unknown] fluticasone propionate 50 mcg/actuation nasal spray,suspension 1 - 2 spray DAILY 11/03/18 [History Last Taken Unknown] ibuprofen 200 mg tablet 600 - 800 mg PO Q6H PRN PRN Pain 11/03/18 [History Last Taken Unknown] magnesium oxide 500 mg capsule 500 mg PO DAILY 11/03/18 [History Last Taken Unknown] ondansetron 4 mg disintegrating tablet 4 mg PO Q8H PRN PRN Nausea 11/03/18 [History Last Taken Unknown] propranolol 10 mg tablet 10 mg PO BID 11/03/18 [History Last Taken Unknown] topiramate 50 mg tablet 50 mg PO BID 11/03/18 [History Last Taken Unknown] hydrocodone-acetaminophen 5-325mg 5mg-325mg 1 tab PO Q6H PRN pain 3 days #10 tabs 07/17/22 [Rx Last Taken Unknown] ondansetron 4 mg disintegrating tablet 4 mg PO Q8H PRN nausea and vomiting #10 tabs 07/17/22 [Rx Last Taken Unknown] potassium chloride 20 mEq tablet,extended release 20 meq PO BID #8 tabs 07/17/22 [Rx Last Taken Unknown] sulfamethoxazole 800 mg-trimethoprim 160 mg tablet (Bactrim DS) 1 tab PO BID #6 tabs 07/17/22 [Rx Last Taken Unknown] ondansetron 4 mg disintegrating tablet 4 mg PO Q8H PRN nausea and vomiting #10 tabs 07/19/22 [Rx Last Taken Unknown] ondansetron 4 mg disintegrating tablet 4 mg PO Q8H PRN nausea and vomiting #10 tabs 07/19/22 [Rx Last Taken Unknown] pantoprazole 40 mg tablet,delayed release (Protonix) 40 mg PO DAILY #30 tabs 07/19/22 [Rx Last Taken Unknown] sucralfate 100 mg/mL oral suspension (Carafate) 10 ml PO BID #420 mL 07/19/22 [Rx Last Taken Unknown] Allergy/AdvReac Type Severity Reaction Status Date / Time azithromycin AdvReac Diarrhea Verified 09/04/22 20:54 Surgical History Hx of tonsillectomy Social History Smoking Status: Never smoker ROS ROS ED ROS Narrative Right upper quadrant abdominal pain. Nausea, vomiting and loose stools. Review of Systems ROS Unobtainable: Denies due to encephalopathy Constitutional Constitutional ED: Denies chills or fever(s) ENT ENT ED: Denies ear pain Cardiovascular Cardiovascular: Denies chest pain Respiratory/Chest Respiratory/Chest: Denies cough or dyspnea Gastrointestinal Gastrointestinal: Reports abdominal pain, diarrhea, nausea and vomiting; Denies constipation or melena Genitourinary Genitourinary ED: Denies dysuria or hematuria Musculoskeletal Musculoskeletal: Denies arthralgias Integumentary Denies abscess Neurologic Neurologic: Denies headache(s) Psychiatric Psychiatric: Denies anxiety Endocrine Endocrinology: Denies polydipsia Hematologic/Lymphatic Hematologic/Lymphatic: Denies easy bleeding Allergic/Immunologic Allergic/Immunologic ED: Denies mouth swelling or tongue swelling EXAM Physical Exam Narrative Exam Narrative: 22-year-old female. Vital signs stable afebrile. Does not look septic toxic. Lying in bed. Family at bedside. H EENT exam unremarkable. Moist mucous membranes. Neck nontender no lymphadenopathy. Lungs clear to auscultation. Heart regular rhythm rate about 90 no murmur. Abdomen soft, nondistended normal bowel sounds no peritoneal signs. Reproducible right upper quadrant tenderness only. Left side and right lower quadrant unremarkable. No obstruction. No hernia or mass. Moving all 4 extremities. Back nontender. Neurologically she is awake and alert. Const Vital Signs: 09/04/22 20:51 Temperature 98 F Temperature Source Temporal Pulse Rate 89 Respiratory Rate 16 Blood Pressure 124/93 H Blood Pressure Mean 103 Pulse Ox 97 Oxygen Delivery Method Room Air Positive well nourished, well developed and obese; Negative for cachectic, contractures or unkempt General Appearance ED: well developed and NAD; Negative for unkempt, cachectic, contractures or pallor Nutritional Appearance: obese; Negative for cachectic HEENT Reports moist mucous membranes normocephalic and atraumatic; Negative for trauma or tenderness Eyes PERRL and EOMs intact bilaterally General Eye ED: Negative for pale conjunctiva or scleral icterus Neck no lymphadenopathy, supple and no JVD General: Negative for tenderness Carotids: Negative for other Lymph Lymphatic: Negative for other Resp normal respiratory effort and clear to auscultation bilaterally Effort and Inspection: Negative for respiratory distress or retractions Auscultation: Negative for rales, rhonchi or wheezes Cardio regular rate, regular rhythm, S1 normal heart sound, S2 normal heart sound and no murmurs GI non-distended and no masses; Negative for non-tender GI Narrative: Right upper quadrant abdominal tenderness. Inspection: Negative for abdominal distention Auscultation: normoactive bowel sounds Palpation: soft and tender; Negative for guarding or rigid Back/Spine no CVA tenderness General Back: Negative for CVA tenderness Cervical Spine: Negative for cervical spine tenderness Thoracic Spine / Upper Back: Negative for thoracic spinal tenderness Lumbar Spine / Lower Back: Negative for lumbar spinal tenderness Coccyx: Negative for other Extremity full ROM General Extremety ED: Negative for edema or tenderness General Extremity: Negative for edema Neuro CN's II-XII intact bilaterally, moves all extremities and no sensory deficits noted Sensorium / Orientation: alert, oriented to person, oriented to place and oriented to time; Negative for orientation impaired, confused, lethargic or stuporous Motor Exam: strength 5/5 throughout Psych mental status grossly normal and thought process normal Appearance: Negative for unkempt Attitude: No agitated Mood & Affect: Negative for depressed, anxious or tearful Skin no wounds General Skin Exam: Negative for jaundice or pallor Lesions: no lesions Rashes: no rashes Trauma: Negative for abrasion Nails: Negative for discolored MDM MDM MDM Narrative Medical decision making narrative: 22-year-old female with right upper quadrant abdominal pain. Has had negative ultrasound and CAT scans but recently a positive HIDA scan with an ejection fraction of less than 35%. This may be secondary to gallbladder disease. She will be treated with IV morphine, Zofran for nausea, IV fluids and IV Toradol also for pain. Labs are being obtained. Repeat exam at 9:52 PM patient improving. Still has some pain will be given a second dose of morphine. I went over all the labs with the patient and her family. They are comfortable with her being discharged home. She will be referred to see Dr. Catrachita Burrell general surgery for follow-up for possible cholecystectomy. Motrin and Tylenol at home for pain. [place] diet. Lab Data Attestation: I reviewed the patient's lab results. Lab results narrative: CBC normal white count 8.8. H&H of 13.9 and 42. Platelets 395. Electrolytes show a gap of 7 normal BUN of 10 and creatinine 0.7. Liver enzymes are normal and not elevated. Lipase is normal at 350. And serum test is negative. Labs are consistent with recent labs from the last several months. No significant change. I did review old records. Labs: Laboratory Results - last 24 hr 09/04/22 09/04/22 09/04/22 21:08 21:08 21:08 WBC 8.8 RBC 4.57 Hgb 13.9 Hct 42.0 MCV 91.9 MCH 30.4 MCHC 33.1 RDW Std Deviation 45.6 H RDW Coeff of Billy 13.6 Plt Count 395 MPV 8.0 Immature Gran % (Auto) 0.200 Neut % (Auto) 48.6 Lymph % (Auto) 40.4 Loup % (Auto) 6.1 Eos % (Auto) 3.9 Baso % (Auto) 0.8 Absolute Neuts (auto) 4.3 Absolute Lymphs (auto) 3.57 Nucleated RBC % 0 Sodium 145 Potassium 3.9 Chloride 114 H Carbon Dioxide 24.0 Anion Gap 7 BUN 10 Creatinine 0.70 Estim Creat Clear Calc 116.01 Est GFR (MDRD) Af Amer 131 Est GFR (MDRD) Non-Af 108 BUN/Creatinine Ratio 14.2 Glucose 97 Calcium 8.2 L Total Bilirubin 0.30 Direct Bilirubin 0.09 AST 21 ALT 47 Alkaline Phosphatase 64 Total Protein 7.2 Albumin 3.4 Globulin 3.8 Lipase 350 Serum , Qual NEGATIVE Discharge Plan Triage Chief Complaint: Abd Pain ED Provider: Ld Gay Dx/Rx/DC Orders Clinical Impression: Abdominal pain, Disease of gallbladder, Erosive esophagitis Instructions: Abdominal Pain Prescriptions: No Action citalopram 10 MG tablet 10 mg PO DAILY acetaminophen 500 MG tablet 500 - 1,000 mg PO Q6H PRN PRN (Reason: Headache) propranolol 10 MG tablet 10 mg PO BID ibuprofen 200 MG tablet 600 - 800 mg PO Q6H PRN PRN (Reason: Pain) ondansetron 4 MG tablet 4 mg PO Q8H PRN PRN (Reason: Nausea) fluticasone propionate 1 SPRAY spray,suspension 1 - 2 spray NASAL DAILY cholecalciferol (vitamin D3) 5,000 UNIT capsule 5,000 unit PO DAILY mssomxm-mhmjascploixk-vocmhioq [Headache Relief (MPZ-ldxa-ntz)] 1 EACH tablet 1 ea PO BID PRN (Reason: Headache) buspirone 15 MG tablet 15 mg PO BID PRN (Reason: Anxiety) B-complex with vitamin C [Super B Complex-Vitamin C] 1 EACH tablet 1 ea PO DAILY topiramate 50 MG tablet 50 mg PO BID cyclobenzaprine 7.5 MG tablet 7.5 mg PO TID PRN (Reason: Muscle Spasm) magnesium oxide 500 MG capsule 500 mg PO DAILY ascorbic acid (vitamin C) 500 MG capsule 500 mg PO DAILY elderberry fruit and flower 1 EACH capsule 1 - 2 ea PO DAILY Desogestrel-Ethinyl Estradiol [Apri 28 Day Tablet] 1 EACH tablet 1 ea PO DAILY aripiprazole 2 MG tablet 2 mg PO DAILY potassium chloride 20 mEq tablet extended release 20 meq PO BID Qty: 8 0RF ondansetron 4 mg tablet,disintegrating 4 mg PO Q8H PRN (Reason: nausea and vomiting) Qty: 10 0RF hydrocodone-acetaminophen 5-325 mg tablet 1 tab PO Q6H PRN (Reason: pain) 3 Days Qty: 10 0RF sulfamethoxazole-trimethoprim [Bactrim DS] 800-160 mg tablet 1 tab PO BID Qty: 6 0RF ondansetron 4 mg tablet,disintegrating 4 mg PO Q8H PRN (Reason: nausea and vomiting) Qty: 10 0RF ondansetron 4 mg tablet,disintegrating 4 mg PO Q8H PRN (Reason: nausea and vomiting) Qty: 10 0RF sucralfate [Carafate] 100 mg/mL suspension 10 ml PO BID Qty: 420 0RF Rx Instructions: Take 1 hour before meals on an empty stomach. pantoprazole [Protonix] 40 mg tablet,delayed release (DR/EC) 40 mg PO DAILY Qty: 30 0RF Primary Care Provider: Fani Fisher Referrals: Fani Fisher MD [Primary Care Provider] - Catrachita Mena MD [Med Staff - Active Staff] - As soon as possible Activity Restrictions/Additional Instructions: Call Dr. Matilde Mena's office on Tuesday. [facility] get you in as soon as possible to discuss the possibility of removing your gallbladder. [place] diet. Tylenol and Motrin for pain. Disposition Disposition: Home, Self Care
[2022-09-04 21:17] LABS: Absolute Lymphocyte Count 3.57 X10^3/uL (0.83-4.51); Absolute Neutrophil Count 4.3 X10^3/uL (2.0-7.7); Basophil# 0.07 X10^3/uL; Basophil% 0.8 % (0-1); Eosinophil# 0.34 X10^3/uL; Eosinophils% 3.9 % (0-5); Hemoglobin 13.9 g/dL (12.0-15.0); Lymphocyte # 3.57 X10^3/ul (0.83-4.51); Lymphocyte % 40.4 % (19-41); Mean Corp Hgb Conc 33.1 g/dL (32-36); Mean Corpuscular Hgb 30.4 pg (27.0-32.0); Mean Corpuscular Volume 91.9 fL (81-99); Monocyte# 0.54 X10^3/uL; Monocyte% 6.1 % (0-10); NRBC Flagged by Analyzer 0 % (0-5); Neutrophil # 4.29 X10^3/uL (2.7-7.7); Neutrophil % 48.6 % (47-70); Platelet Count 395 K/mm3 (150-450); RBC Distribution Width CV 13.6 % (11.6-14.6); RBC Distribution Width SD 45.6 fl (35.1-43.9); Red Blood Count 4.57 M/mm3 (4.2-5.4); White Blood Count 8.8 K/mm3 (4.4-11.0)
[2022-09-04] MEDS: 0.9% Normal Saline 1,000 ML 999 ML IV (21:17)
[2022-09-04] MEDS: morphine 8 MG/ML Syringe 6 MG IV ×2 (21:18→22:06)
[2022-09-04] MEDS: Ondansetron 4 MG/2 ML Vial IV (21:18)
[2022-09-04] MEDS: Ketorolac 30 MG/ML Syringe IV (21:18)
[2022-09-04 21:34] LABS: Internal QC Validated? YES +Cl - CLEAR BKGD; Pregnancy, Serum, hCG Quali. NEGATIVE Negative
[2022-09-04 21:43] LABS: AST(SGOT) 21 U/L (15-37); Alanine Aminotransfer ALT/SGPT 47 U/L (13-56); Albumin, Serum 3.4 g/dL (3.2-5.0); Alkaline Phosphatase 64 U/L (45-117); Anion Gap 7 (5-15); BUN 10 mg/dL (7-18); BUN/Creat Ratio 14.2 RATIO (10-20); Bilirubin, Direct 0.09 mg/dL (0.00-0.30); Calcium,Total 8.2 mg/dL (8.5-10.1); Chloride 114 mmol/L (98-107); EST Glomerular Filtration Rate 108 mL/min (>60); Est Glom Filt Rate - Afr Amer 131 mL/min (>60); Estimated Creatinine Clearance 116.01 ml/min; Globulin 3.8 g/dL (2.2-4.2); Glucose 97 mg/dL (74-106); Lipase 350 U/L (73-393); Potassium 3.9 mmol/L (3.5-5.1); Protein, Total 7.2 g/dL (6.4-8.2); Sodium Level 145 mmol/L (136-145)
== END 2022-09-04 22:09 | disposition home or self-care (01) ==
PROVIDERS: Emergency Provider Emergency Medicine; PCP Family Medicine; Visit Provider Emergency Medicine
DX: R11.2 Nausea with vomiting, unspecified (principal); F41.9 Anxiety disorder, unspecified; K20.80 Other esophagitis without bleeding; K82.9 Disease of gallbladder, unspecified; F32.A Depression, unspecified; E66.9 Obesity, unspecified; R10.11 Right upper quadrant pain
CPT/HCPCS: 80048; 80076; 83690; 84703; 85025; 96361; 96374; 96375; 96376; 99283; J7030; A4216; J2405

== ENCOUNTER 2022-09-21 11:22 | Day surgery (SDC) | payer MEDICARE, MEDICAID, SELFPAY ==
[2022-09-21] VITALS (11 sets, daily range): BP systolic 108–135; BP diastolic 71–91; PULSE 69–82; RESP 16–18; TEMP 36.1–37; O2SAT 96–100; BMI 36.6
[2022-09-21] MEDS: Lactated Ringers 1,000 ML 15 ML IV ×2 (11:35→13:59)
--- NOTE | 2022-09-21 11:35 | EKG12_ITS ---
Test Reason : PRE OP Blood Pressure : / mmHG Vent. Rate : 075 BPM Atrial Rate : 075 BPM P-R Int : 146 ms QRS Dur : 088 ms QT Int : 392 ms P-R-T Axes : 040 072 022 degrees QTc Int : 437 ms Normal sinus rhythm Normal ECG When compared with ECG of 07-SEP-2012 08:45, PREVIOUS ECG IS PRESENT Confirmed by BEVERLEY BERNARDO, ROSE ([id number]), clinical editor JJ CAMARGO ([id number]) on 09/27/2022 12:50:30 PM Referred By: Pillo Garcia Confirmed By:ROSE LOWERY MD
[2022-09-21 11:51] LABS: Internal QC Validated? YES +Cl - CLEAR BKGD; Pregnancy, Urine Negative Negative
--- NOTE | 2022-09-21 11:52 | PCM.HP.BLA ---
History and Physical Date of Admission: 09/21/22 Intake Vital Signs ? 09/04/2319:51 09/07/2312:15 Height 5 ft 6 in 5 ft 6 in Weight: 220 lb 215 lb BMI 35.5 34.7 BP 124/93 H 115/82 H Blood Pressure Location ? Rt brachial Position ? Sitting Respiration 16 18 Pulse 89 ? Temp 98 F ? Temp Source Temporal ? Pulse Oximetry (%) 97 ? Intake Visit Reasons:?GALLBLADDER Chief Complaint: gallbladder All Source Intelligence Required: No Is patient in pain?: Yes Allergies azithromycin Adverse Reaction (Verified 09/07/22 13:15) Diarrhea Medications B-complex with vitamin C (Super B Complex-Vitamin C tablet) 1 ea PO DAILY 11/03/18 [History Confirmed 09/07/22] Desogestrel-Ethinyl Estradiol [Apri 28 Day Tablet] 1 ea PO DAILY 11/03/18 [History Confirmed 09/07/22] acetaminophen 500 mg tablet 500 - 1,000 mg PO Q6H PRN PRN Headache 11/03/18 [History Confirmed 09/07/22] ascorbic acid (vitamin C) 500 mg capsule 500 mg PO DAILY 11/03/18 [History Confirmed 09/07/22] kagqozs-jtjarjnnbkiqx-fntsckqy 250 mg-250 mg-65 mg tablet (Headache Relief (UJQ-ctfkzjensbcu-mxlugfyn)) 1 ea PO BID PRN Headache 11/03/18 [History Confirmed 09/07/22] buspirone 15 mg tablet 15 mg PO BID PRN Anxiety 11/03/18 [History Confirmed 09/07/22] cholecalciferol (vitamin D3) 125 mcg (5,000 unit) capsule 5,000 unit PO DAILY 11/03/18 [History Confirmed 09/07/22] elderberry fruit 460 mg-elderberry flower 115 mg capsule 1 - 2 ea PO DAILY 11/03/18 [History Confirmed 09/07/22] fluticasone propionate 50 mcg/actuation nasal spray,suspension 1 - 2 spray DAILY 11/03/18 [History Confirmed 09/07/22] ibuprofen 200 mg tablet 600 - 800 mg PO Q6H PRN PRN Pain 11/03/18 [History Confirmed 09/07/22] magnesium oxide 500 mg capsule 500 mg PO DAILY 11/03/18 [History Confirmed 09/07/22] topiramate 50 mg tablet 50 mg PO BID 11/03/18 [History Confirmed 09/07/22] ondansetron 4 mg disintegrating tablet 4 mg PO Q8H PRN nausea and vomiting #10 tabs 07/19/22 [Rx Confirmed 09/07/22] pantoprazole 40 mg tablet,delayed release (Protonix) 40 mg PO DAILY #30 tabs 07/19/22 [Rx Confirmed 09/07/22] citalopram 10 mg tablet 10 mg PO DAILY 09/07/22 [History Confirmed 09/07/22] PFSH Medical History?(Updated 09/07/22 @ 14:[address] Pillo Garcia MD) Anxiety Depression Hip abductor tendonitis Surgical History?(Updated 09/07/22 @ 13:13 by January Duffy) History of surgery on lower extremity Hx of tonsillectomy Family History?(Updated 09/07/22 @ 13:13 by January Duffy) Mother Diabetes Cancer ?? ? skin Thyroid disorderFather Diabetes Hypertension Social History?(Updated 09/07/22 @ 13:14 by January Duffy) Smoking Status:? Never smoker alcohol intake:? never HPI HPI HPI: Patient is here due to right upper quadrant pain.? She had an EGD which showed esophagitis and was started on a PPI but this has not helped.? She says the right upper quadrant pain happens especially about an hour after eating.? She does describe some nausea and vomiting as well.? No fevers or chills. ROS General General: Yes fatigue; No weight change, appetite, colon cancer, breast cancer or weakness HEENT HEENT: Yes difficulty swallowing; No eye injury, eye surgery, swollen glands or hoarseness Endo Endocrine: No thyroid disease, diabetes mellitus, thyroid cancer, Hair loss, heat intolerance or cold intolerance Skin Skin: No rash or changing moles Breast Breast: No left breast lump, right breast lump, nipple discharge, breast pain, abnormal mammogram, abnormal US or breast enlargement Musc Musculoskeletal: Yes back problems; No arthritis, rheumatoid arthritis, gout or joint pain Cardio Cardiovascular: No murmur, pacemaker, heart disease, atrial fibrillation, high blood pressure, heart attack, heart stent, palpitations, shortness of breat with exertion or chest pain Psych Psychiatric: Yes depression and anxiety; No hearing voices Resp Respiratory: No shortness of breath, No sleep apnea, No cough, No COPD, No asthma, No emphysema and No wheezing Gastro Gastrointestinal: Yes abdominal pain, Yes nausea or vomiting, No diarrhea, No constipation, No blood in stool, Yes acid reflux, No hemorrhoids, No ulcers, Yes gallbladder problem and No black,tarry stools Josué Hematologic: No blood thinners, No blood disorders, No bleeding, No anemia and No blood clots Neuro Neurologic: No system reviewed and no additional complaints, except as documented, No as per HPI, No abnormal gait, No abnormal hearing, No abnormal movements, No abnormal speech, No behavioral changes, No burning sensations, No confusion, No convulsions, No disequilibrium, No dizziness, No localized weakness, No frequent falls, No headache(s), No lack of coordination, No loss of vision, No memory loss, No numbness, No other visual disturbances, No radicular pain, No restless legs, No sensory deficit, No syncope, No tingling, No tremor(s), No weakness and No other Exam Const General: cooperative Orientation: alert and oriented x3 [facility] Head: normal to inspection Neck Neck: normal visual inspection and full ROM Chest Chest palpation & inspection: normal inspection of the chest Resp Effort & Inspection: normal respiratory effort Auscultation: clear to auscultation bilaterally Cardio Rate: regular rate Rhythm: regular rhythm GI Inspection: non-distended Palpation: soft and tender in the RUQ Skin General: no rashes or lesions noted Neuro General: patient alert and patient oriented x3 Extrem General: full ROM Psych Appearance: grossly normal Mental Status: mental status grossly normal Assessment and Plan Assessment and Plan (1) Erosive esophagitis: ?Status:?Acute (2) Abdominal pain: ?Status:?Chronic ?Qualifiers: ?Abdominal location:?right upper quadrant? Qualified Code(s):?R10.11 - Right upper quadrant pain (3) Biliary dyskinesia: ?Status:?Acute Plan The patient had ultrasound does not show any gallstones but her 1 CT scan did show some pericholecystic fluid.? Patient is complaining of a lot of right upper quadrant pain which is consistent with gallbladder etiology.? Patient had a HIDA scan which showed decreased ejection fraction.? I recommended laparoscopic cholecystectomy to the patient. I discussed the procedure in detail with the patient.? I discussed the risks, benefits, and alternatives of the procedure.? I discussed the risks including but not limited to bleeding, infection, injury to surrounding organs such as the liver, bile duct, bowels.? I did discuss the possibility of having to convert to an open procedure as well as the possibility that if any injuries occurred this may necessitate further surgery at a tertiary care center. Pillo Garcia MD Pager: [facility] [address] [place] [address] [address] [place] [address] Office: I have examined the patient and the H&P has been reviewed. There are no clinical changes since date of exam.
[2022-09-21] MEDS: Cefotetan 2 GM in 0.9% NS 100 ML IV (12:20)
--- NOTE | 2022-09-21 12:40 | RAD_ITS ---
STUDY: INTRAOPERATIVE CHOLANGIOGRAM. REASON FOR EXAM: Female, 22 years old. Laparoscopic cholecystectomy. FLUOROSCOPY TIME (if supplied): ( 9.8 seconds ) minutes/seconds. One image was submitted. TECHNIQUE: An intraoperative cholangiogram was performed by the surgeon. Imaging was provided. COMPARISON: None. FINDINGS: Normal appearance of the intra and extrahepatic biliary ducts. No intraluminal filling defect is seen. There is free flow of contrast into the duodenum. RAD/Cholangiogram/ O R,Initial IMPRESSION: Unremarkable intraoperative cholangiogram. Electronically Signed: Gulshan Leal MD at 15:00 EST ,
--- NOTE | 2022-09-21 13:00 | GALL_PTH ---
PATIENT: DONNIE BRONSON LOC: [facility] [place] U#:[id number] AGE/SX: 22/F ROOM: RE09/21/[address]: Dr. Pillo Garcia MD : [id number] BED: DIS: 09/21/2022 SPEC #: [id number] RECD: 09/21/22 14:00 STATUS: CHERIE FARMERPura #: [id number] ONEL: 09/21/22 13:[address]: Pillo Garcia DEPT: SURGICAL PATHOLOGY RECD BY: Cherelle Dobbs ENTERED: 09/22/22 09:00 SP TYPE: MONIE CALDWELL DR: Dr. Fani Fisher MD Tissues: Gallbladder, NOS Procedures: Surgery Specimen Level III HEADER OPERATION: Laparoscopic cholecystectomy with IOC PRE-OP DIAGNOSIS: Cholelithiasis TISSUE SUBMITTED: Gallbladder and contents MICROSCOPIC DIAGNOSIS Gallbladder, cholecystectomy: Chronic cholecystitis and cholelithiasis. AM:ramos 09/23/2022 MICROSCOPIC DESCRIPTION Slides are reviewed. GROSS DESCRIPTION Received is one container labeled with the patient's name and designated gallbladder. The specimen consists of a gallbladder measuring 9 cm in length and up to 3.5 cm in diameter. The external surface is pink-dye, smooth and glistening for the most part. Focally it is granular, hemorrhagic and contains cautery artifact. The gallbladder contains green-yellow mucoid bile and one brown stone measuring 0.7 cm in diameter. The mucosa is bile-stained and without any mass lesions. The gallbladder wall measures up to 0.2 cm in thickness. [facility] sections from the gallbladder and the cystic duct are submitted in one cassette. / SJ:ramos 09/22/2022 TC:3 CPT: 25165
[2022-09-21] MEDS: Bupiv/Epi 0.5% Mpf 30 ML Vial (13:15)
--- NOTE | 2022-09-21 13:31 | PCM.OPRPT ---
Report of Operation Date of Procedure: 09/21/22 Pre-Operative Diagnosis: Cholelithiasis and biliary colic Post-Operative Diagnosis: Same Surgery/Procedure Performed:: Laparoscopic cholecystectomy with cholangiogram Specimen's removed: Gallbladder Description of Procedure: After obtaining informed consent patient was brought back to the operating room. General anesthesia was induced. The abdomen was prepped and draped in usual sterile fashion. A small midline incision was made superior to the umbilicus and deepened to the level of fascia. The fascia was elevated and incised. Next the peritoneum was elevated and incised in the same fashion. Finger sweep was performed and the Philip trocar was placed into the abdomen. The balloon was inflated. The abdomen was inflated to 15 mmHg. Next a camera was introduced into the abdomen and the abdomen was inspected. Next under direct visualization three 5-mm ports were placed one subxiphoid and 2 subcostal. Next the gallbladder was elevated and retracted toward the right shoulder. The peritoneum was stripped from the gallbladder. The infundibulum was located and retracted laterally. Next the triangle of Calot was dissected and the cystic duct and cystic artery were identified. Cholangiograms were performed. The Okroma clamp was used to clamp across the infundibulum and the catheter needle was inserted into the gallbladder. Under fluoroscopy contrast was instilled into the gallbladder and the common duct, cystic duct as well as proximal hepatic ducts were identified. There was good filling of the duodenum. There were no filling defects noted in the common bile duct. The clamp was removed as well as the needle and the infundibulum was grasped once more. Three hemolock clips were placed across the cystic duct. The cystic duct was then divided leaving 2 clips on the stump. The cystic artery was clipped and divided in the same fashion. The hook cautery was then used to take the gallbladder off of the gallbladder bed. Hemostasis was obtained. Gallbladder fossa was irrigated and no active bleeding or bile leakage was noted. Next the camera was introduced in the subxiphoid port. An Endopouch bag was placed through the umbilical port and the gallbladder was placed into it. The gallbladder was then removed through the umbilical incision. The camera was then reinserted through the umbilical port. The gallbladder fossa was inspected once more and noted to be hemostatic with no leaking bile. The abdomen was suctioned dry. The 5 mm ports were removed under direct visualization. The umbilical port was then removed and the air was removed from the abdomen. Next using an 0 Vicryl suture the umbilical fascia was closed in a [id number] fashion. The umbilical port site was irrigated local anesthetic was administered to all the incisions. All the incisions were closed with interrupted subcuticular 4-0 Monocryl sutures followed by Steri-Strips and dressings. The patient was awoken and taken to PACU in stable condition. Admit VTE Documentation VTE Mechan Device Prophylaxis: SCD's
--- NOTE | 2022-09-21 13:32 | DCINST_ITS ---
Discharge Instructions Procedure Gallbladder Diet Discharge Diet: Light diet - advance as tolerated Activity Discharge Activity: May Not Drive (for 2-3 days or while taking narcotic pain medications.) and - (Do not drive, work heavy equipment or sign legal documents for 24 hours.) May shower in (days): 1 Lifting Restrictions: 20 lbs for 2 weeks Additional Activity Instructions:: Pain medication may cause nausea. You should typically eat light foods as you take your pain medications. Pain medication may also cause constipation. If this is a problem for you, please discuss with your doctor. Dressing / Incision Call your doctor if your incision/area has: Continuous Slow Oozing, Sudden Increased Bleeding, Increased Pain/ Swelling, Increased Redness and Foul Smelling Discharge Call your doctor if you observe: Fever of 101 or Higher Suture Line Care: Avoid Pulling/Pushing and Avoid Pinching/Bending Remove Dressing in: 2 days Additional Dressing/Incision Instructions:: Leave operative bandaids on for 2 days. When you remove dressing, leave Steri-Strips on until your follow-up appointment, or until the Steri-Strips fall off on their own. Follow Up Care Please Follow Up With: Pillo Garcia MD When: Please call to schedule 2 week follow up appointment. [phone] Test Results: Test results from this visit will be discussed in further detail at your follow- up appointment, if applicable. Discharge Plan Admission Attending Provider: Pillo Garcia Primary Care Provider: Fani Fisher Instructions Additional Instructions / Restrictions: Alternate ibuprofen and Tylenol for pain, oxycodone for breakthrough pain. Discharge Orders/Prescriptions Prescriptions: New oxycodone 5 mg tablet 5 - 10 mg PO Q6H PRN (Reason: pain) 5 Days Qty: 20 0RF No Action acetaminophen 500 MG tablet 500 - 1,000 mg PO Q6H PRN PRN (Reason: Headache) ibuprofen 200 MG tablet 600 - 800 mg PO Q6H PRN PRN (Reason: Pain) Headache Relief ([id number]) 1 EACH tablet 1 ea PO BID PRN (Reason: Headache) buspirone 15 MG tablet 15 mg PO BID PRN (Reason: Anxiety) B-complex with vitamin C [Super B Complex-Vitamin C] 1 EACH tablet 1 ea PO DAILY topiramate 50 MG tablet 50 mg PO BID Desogestrel-Ethinyl Estradiol [Apri 28 Day Tablet] 1 EACH tablet 1 ea PO DAILY ondansetron 4 mg tablet,disintegrating 4 mg PO Q8H PRN (Reason: nausea and vomiting) Qty: 10 0RF pantoprazole [Protonix] 40 mg tablet,delayed release (DR/EC) 40 mg PO DAILY Qty: 30 0RF fluoxetine [Prozac] 40 mg capsule 40 mg PO DAILY dextroamphetamine-amphetamine 20 mg capsule,extended release 24hr 20 mg PO DAILY gabapentin 100 mg capsule 100 mg PO QHS hydroxyzine pamoate 25 mg capsule 25 mg PO PRN PRN (Reason: Anxiety) Label Comments: TAKE 1 CAPSULE BY MOUTH EVERY 4 HOURS NEEDED FOR ANXIETY, NOT TO EXCEED 3 DOSES IN A 24 HOUR PERIOD Nurtec ODT 75 mg tablet,disintegrating 75 mg PO PRN PRN (Reason: MIGRAINES) Referrals / Follow Up: Fani Fisher MD [Primary Care Provider] - Disposition Disposition (needs filled in before D/C Order can be placed): Home, Self Care
[2022-09-21] MEDS: oxyCODONE 5 MG Tablet PO (16:42)
== END 2022-09-21 18:32 | disposition home or self-care (01) ==
LOC: SDC 11:24 → AC 11:25
PROVIDERS: Anesthesiology; PCP Family Medicine; Referring Provider Surgery; Visit Provider Surgery
PROC: (CPT 47610; principal; 2022-09-21 12:40)
DX: K80.10 Calculus of gallbladder with chronic cholecystitis without obstruction (principal); F41.9 Anxiety disorder, unspecified; F32.A Depression, unspecified; K21.9 Gastro-esophageal reflux disease without esophagitis; Z79.899 Other long term (current) drug therapy
CPT/HCPCS: 47563; 00790; 74300; 76000; 81025; 88304; 93005; J7120; J2405

== ENCOUNTER 2022-10-14 07:59 | Day surgery (SDC) | payer MEDICARE, MEDICAID, SELFPAY ==
[2022-10-14] VITALS (7 sets, daily range): BP systolic 104–116; BP diastolic 61–76; PULSE 73–82; RESP 16–18; TEMP 36.2–36.6; O2SAT 95–99; BMI 36.9
[2022-10-14] MEDS: Lactated Ringers 1,000 ML 15 ML IV (08:41)
--- NOTE | 2022-10-14 08:44 | PCM.HP.BLA ---
History and Physical Date of Admission: 10/14/22 AALIYAH BRONSON, is a 22 F who presents to the office today for Initial consult. Aaliyah established with this clinic 08.11.22 following [facility] ED presentations for abdominal pain and dysuria. Presented to urgent care who diagnosed UTI and instructed ED presentation for IVF; [facility] presentation without testing indicative of UTI. ?CT [facility]?liquid stool in large bowel; small hiatal hernia [facility] ED 07.17.22 continued abdominal pain with postprandial emesis. UA obtained x2, both contaminated. Discharged with 3 days of atb and potassium replacement, Zofran, bentyl. ?Biochemical workup?CBC, CMP (potassium 3.1), LFT, lipase without significant abnormality. [facility] ED 07.19.22 continued abd pain radiating into her back; aggravated with eating/drinking ad causes emesis. Discharged with protonix, Zofran and Carafate. ?Biochemical workup?CBC, CMP, lipase without significant abnormality. ?US RUQ?hepatic measurement 17cm with normal echogenicity; distended gallbladder with +Sherwood?s sign without pericholecystic fluid; small linear fluid collection anterior to pancreatic head. Established with [facility] gastroenterology 07.21.22 with right abdominal/flank pain, dysphagia, heartburn, diarrhea ?CT abd/pel 07.22.22?upper normal gallbladder caliber with miniscule nonspecific pericholecystic fluid without cholecystitis features; small stool burden in ascending colon ?EGD 07.30.22?LA Grade D reflux esophagitis; 2cm hiatal hernia; normal duodenum. Pathology noting hyperplastic mucosa changes without metaplasia. ?Protonix 40mg BID; continue Carafate QID ROS Const Constitutional: No anorexia, fatigue, fever(s), weight change or sleep problems Eyes Eyes: No change in vision ENT ENT: No abnormal hearing, difficulty swallowing, mouth lesions, tongue swelling or throat swelling Resp Respiratory: No cough or shortness of breath Cardio Cardiology: No chest pain at rest, chest pain with exertion, shortness of breath or dyspnea on exertion Gastro GI: No difficulty swallowing Genitourinary-Female: No difficulty urinating or burning urination Musc Musculoskeletal: No joint pain, joint swelling, muscle weakness or decreased muscle mass Skin Skin: No hair loss in leg, yellowing of the eye, itchy eyes, rash, skin ulcer or skin swelling Neuro Neurology: No abnormal hearing, abnormal movements, confusion, unsteady gait/balance or memory loss Psych Psychiatric: No anxiety, No confusion and No memory loss Endo Endocrine: No fatigue or weight change Aller/Imm Allergy/Immunologic: No itchy eyes, throat swelling or tongue swelling Josué/Lymp Hematologic/Lymphatic: No easy bleeding, easy bruising or enlarged lymph nodes Exam Const General: cooperative and comfortable Nutritional Appearance: average body habitus and well nourished HENMT Head: normal to inspection Ears: hearing grossly normal bilaterally Nose: external nose normal Face and sinus: normal facial exam Mouth: oral mucosae normal Throat: posterior oropharynx normal Eyes General: appearance normal, both eyes and all related structures Neck Neck: normal visual inspection Chest Chest palpation & inspection: normal inspection of the chest and normal palpation of entire chest wall Resp Effort & Inspection: normal respiratory effort Auscultation: Bilateral: Clear to Auscultation Cardio Palpation: normal PMI Rate: regular rate Rhythm: regular rhythm GI Inspection: normal to inspection Auscultation: normal bowel sounds Percussion: normal to percussion Palpation: no hepatosplenomegaly Skin General: no rashes or lesions noted Neuro General: patient alert Extrem General: normal to inspection Psych Affect: normal affect Quality Reporting Tobacco Screening ([facility] [address]) Smoking Status: Never smoker Assessment and Plan Assessment and Plan (1) Abdominal pain: ?Status:?Chronic ?Plan: Her abdominal pain could be from secondary to atypical erosive esophagitis.? This is improving with PPI therapy and Carafate.? Also her imaging with her ultrasound did show an enlarged gallbladder with some possible pericholecystic fluid collection around the area of the hernandez hepatis.? It was no sign of perforation or pneumoperitoneum on her CAT scan of the abdomen pelvis.? There was also no stone seen in her bile duct or gallbladder.? We will get a HIDA scan with CCK to see if she has any signs of a calculus cholecystitis or motility problem involving the hepatobiliary tree. (2) Erosive esophagitis: ?Status:?Acute ?Plan: Severe LA grade D erosive esophagitis on PPI therapy and Carafate therapy.? Recommendation was follow-up endoscopy to screen for Lawrence's esophagus.? She also has a 2 cm sliding hiatal hernia that may need to be addressed in the future.? We would take measurements to where her lower esophageal sphincter is located.? She may need manometry if surgery is going to be a consideration in the future. ? ? ? Orders: I have examined the patient and the H&P has been reviewed. There are no clinical changes since date of exam.
[2022-10-14 08:49] LABS: Internal QC Validated? YES +Cl - CLEAR BKGD; Pregnancy, Urine Negative Negative
--- NOTE | 2022-10-14 09:15 | IMM_PTH ---
PATIENT: DONNIE BRONSON LOC: EN U#:[id number] AGE/SX: 22/F ROOM: RE10/14/[address]: Dr. Cali Kim DO : 2000 BED: DIS: 10/14/2022 SPEC #: [id number] RECD: 10/14/22 14:15 STATUS: CHERIE REPura #: [id number] ONEL: 10/14/22 09:[address]: Cali Kim DEPT: IMMUNOHISTOCHEMISTRY RECD BY: Luz Elena Dixon ENTERED: 10/14/22 14:16 SP TYPE: IMMUNO OTHR DR: Dr. Fani Fisher MD Tissues: A - Stomach, NOS Procedures: H Pylori (initial) PHYSICIAN & INSTITUTION [place] [id number] SPECIMEN INFORMATION: Tissue Source: A ? Gastric body Clinical Info: Abdominal pain, erosive esophagitis Specimen Number: [id number] CPT code: 55441 METHODOLOGY: Deparaffinized sections of prefer/formalin-fixed tissue or PAP/DQ stained slides are incubated with monoclonal/polyclonal antibodies/oligonucleotide probes. Localization is made via biotin free immunoperoxidase method. Appropriate controls are performed and reacted as expected. Results on target cell population are indicated in the following table: RESULTS: ANTIBODY / CLONE RESULT Block A H Pylori (polyclonal) negative These tests were developed and their performance characteristics determined by [facility]. They may not have been cleared or approved by the U.S. Food and Drug Administration. The FDA has determined that such clearance or approval is not necessary. The above immunohistochemical/dualISH markers are ordered and reviewed by the Pathologist. INTERPRETATION: A. Gastric body, biopsy: Negative for Helicobacter pylori organisms. SJ:ramos 10/15/2022
--- NOTE | 2022-10-14 09:15 | EGD_PTH ---
PATIENT: DONNIE BRONSON LOC: EN U#:[id number] AGE/SX: 22/F ROOM: RE10/14/[address]: Dr. Cali Kim DO : 2000 BED: DIS: 10/14/2022 SPEC #: [id number] RECD: 10/14/22 11:31 STATUS: CHERIE REPura #: [id number] ONEL: 10/14/22 09:[address]: Cali Kim DEPT: SURGICAL PATHOLOGY RECD BY: Lulu Jj ENTERED: 10/14/22 13:18 SP TYPE: EGD BIOPSY [facility] DR: Dr. Fani Fisher MD Tissues: A - Gastric mucous membrane B - Duodenum, NOS C - Esophagus, NOS D - Esophagus, NOS Procedures: Special Stain Group II Surgery Specimen Level IV Alcian Blue/PAS (control) HEADER OPERATION: [place] [place] PRE-OP DIAGNOSIS: Abdominal pain, erosive esophagitis TISSUE SUBMITTED: A ? Gastric body biopsy, B ? Duodenum biopsy, C ? Distal esophagus biopsy, D ? Proximal esophagus biopsy MICROSCOPIC DIAGNOSIS A. Gastric body, biopsy: Mild gastritis. See microscopic description and comment. B. Duodenum, biopsy: Fragments of duodenal mucosa with nonspecific chronic inflammation, blunting of villi and Bebe gland hyperplasia. C. Distal esophagus, biopsy: Fragments of gastroesophageal mucosa with moderate chronic inflammation. Focal changes consistent with eosinophilic esophagitis. Intestinal metaplasia (goblet cell metaplasia) not identified. D. Proximal esophagus, biopsy: Fragments of squamous mucosa with changes consistent with eosinophilic esophagitis. See comment. SJ:ramos 10/15/2022 COMMENT A. The results of immunohistochemistry for Helicobacter pylori will be reported separately ([id number]). C. Alcian blue/PAS stain with matched control is used in the evaluation of the specimen. Increased number of eosinophils (>20 per high power field) are noted consistent with eosinophilic esophagitis. D. Increased number of eosinophils (>20 per high power field) are noted consistent with eosinophilic esophagitis. Correlation with clinical, endoscopic findings and appropriate follow up are necessary. MICROSCOPIC DESCRIPTION Slides are reviewed. A. The specimen shows fragments of gastric mucosa with chronic inflammatory cell infiltrates in the lamina propria consisting of lymphocytes and plasma cells, consistent with mild chronic gastritis. GROSS DESCRIPTION A - Received in fixative is one container labeled with the patient's name and designated gastric body biopsy. The specimen consists of two irregular fragments of light dye soft tissue that in aggregate measure 0.6 x 0.3 x 0.1 cm. The specimen is totally submitted in one cassette. B - Received in fixative is one container labeled with the patient's name and designated duodenum biopsy. The specimen consists of multiple irregular fragments of light dye soft tissue that in aggregate measure 1.0 x 0.4 x 0.1 cm. The specimen is totally submitted in one cassette. C - Received in fixative is one container labeled with the patient's name and designated distal esophagus biopsy. The specimen consists of two irregular fragments of light dye soft tissue that in aggregate measure 1.0 x 0.3 x 0.1 cm. The specimen is totally submitted in one cassette. D - Received in fixative is one container labeled with the patient's name and designated proximal esophagus biopsy. The specimen consists of multiple irregular fragments of light dye soft tissue that in aggregate measure 0.6 x 0.4 x 0.1 cm. The specimen is totally submitted in one cassette. / ESTELA:ramos 10/14/2022 TC:3 CPT: 14295 x4, 46168
--- NOTE | 2022-10-14 09:42 | OP.EGD_ITS ---
Patient Name: Aaliyah Maldonado Procedure Date: 10/14/2022 9:17 AM Date of : 2000 Age: 22 Procedure: Upper GI endoscopy Indications: Functional Dyspepsia, Suspected esophageal reflux, Failure to respond to medical treatment Providers: Cali Kim DO Medicines: Monitored Anesthesia Care Patient Profile: This is a 22 year old female. Refer to note in patient chart for documentation of history and physical. Patient has symptoms of chronic abdominal cramping and chronic epigastric abdominal pain. Complications: No immediate complications. Procedure: Pre-Anesthesia Assessment: - Prior to the procedure, a History and Physical was performed, and patient medications and allergies were reviewed. The patient is competent. The risks and benefits of the procedure and the sedation options and risks were discussed with the patient. All questions were answered and informed consent was obtained. Patient identification and proposed procedure were verified by the physician in the pre-procedure area. Mental Status Examination: alert and oriented. Airway Examination: normal oropharyngeal airway and neck mobility. Respiratory Examination: clear to auscultation. CV Examination: normal. Prophylactic Antibiotics: The patient does not require prophylactic antibiotics. Prior Anticoagulants: The patient has taken no previous anticoagulant or antiplatelet agents. ASA Grade Assessment: II - A patient with mild systemic disease. After reviewing the risks and benefits, the patient was deemed in satisfactory condition to undergo the procedure. The anesthesia plan was to use monitored anesthesia care (MAC). Immediately prior to administration of medications, the patient was re-assessed for adequacy to receive sedatives. The heart rate, respiratory rate, oxygen saturations, blood pressure, adequacy of pulmonary ventilation, and response to care were monitored throughout the procedure. The physical status of the patient was re-assessed after the procedure. After obtaining informed consent, the endoscope was passed under direct vision. Throughout the procedure, the patient's blood pressure, pulse, and oxygen saturations were monitored continuously. The Endoscope was introduced through the mouth, and advanced to the second part of duodenum. The upper GI endoscopy was accomplished without difficulty. The patient tolerated the procedure well. Scope In: 9:26:39 AM Scope Out: 9:34:31 AM Total Procedure Duration Time 0 hours 7 minutes 52 seconds Findings: Mucosal changes including ringed esophagus, longitudinal furrows, small-caliber esophagus, circumferential folds and congestion (edema) were found in the entire esophagus. Biopsies were obtained from the proximal and distal esophagus with cold forceps for histology of suspected eosinophilic esophagitis. Verification of patient identification for the specimen was done. Estimated blood loss was minimal. Segmental moderate inflammation characterized by granularity was found in the gastric body. Biopsies were taken with a cold forceps for histology. Verification of patient identification for the specimen was done. Estimated blood loss was minimal. Bilious fluid was found in the gastric body. Fluid aspiration was performed. Verification of patient identification for the specimen was done. Estimated blood loss was minimal. Diffuse moderate inflammation characterized by erosions, erythema and friability was found in the duodenal bulb and in the first portion of the duodenum. Biopsies were taken with a cold forceps for histology. Verification of patient identification for the specimen was done. Estimated blood loss was minimal. Impression: - Esophageal mucosal changes consistent with eosinophilic esophagitis. Biopsied. - Chronic gastritis. Biopsied. - Bilious gastric fluid. Fluid aspiration performed. - Duodenitis. Biopsied. Recommendation: - Discharge patient to home. - Resume previous diet. - Continue present medications. - Await pathology results. Procedure Code(s): --- Professional --- 61711, Esophagogastroduodenoscopy, flexible, transoral; with biopsy, single or multiple CPT copyright 2017 [employer]. All rights reserved. The codes documented in this report are preliminary and upon remote medical coder review may be revised to meet current compliance requirements. Cali Kim DO 10/14/2022 9:41:39 AM This report has been signed electronically. Number of Addenda: 0 Note Initiated On: 10/14/2022 9:17 AM
--- NOTE | 2022-10-14 09:42 | OP.CCLET_ITS ---
10/14/2022 Fani Fisher Re : Upper GI endoscopy procedure for Aaliyah Maldonado Dear Natalia This procedure was performed on October. My impressions and recommendations are as follows: Impressions : - Esophageal mucosal changes consistent with eosinophilic esophagitis. Biopsied. - Chronic gastritis. Biopsied. - Bilious gastric fluid. Fluid aspiration performed. - Duodenitis. Biopsied. Recommendations : - Discharge patient to home. - Resume previous diet. - Continue present medications. - Await pathology results. My findings are described in the full procedure note, which is enclosed. If I can be of further assistance, please feel free to contact me at . Sincerely, Cali Kim DO 10/14/2022 9:41:39 AM This report has been signed electronically.
== END 2022-10-14 10:21 | disposition home or self-care (01) ==
LOC: EN 07:59 → AC 08:00
PROVIDERS: Anesthesiology; PCP Family Medicine; Referring Provider Family Medicine; Visit Provider Internal Medicine Gastroenterology
PROC: 0DJ08ZZ Inspection of Upper Intestinal Tract, Via Natural or Artificial Opening Endoscopic (ICD-10-PCS; CPT 43235; principal; 2022-10-14 09:10)
DX: K20.0 Eosinophilic esophagitis (principal); K31.89 Other diseases of stomach and duodenum; K44.9 Diaphragmatic hernia without obstruction or gangrene; K29.50 Unspecified chronic gastritis without bleeding; F32.A Depression, unspecified; F41.9 Anxiety disorder, unspecified; Z79.899 Other long term (current) drug therapy; Z79.82 Long term (current) use of aspirin
CPT/HCPCS: 43239; 81025; 88305; 88313; 88342; J7120; J2405

== ENCOUNTER → 2022-10-25 | Outpatient (CLI) | payer MEDICARE, MEDICAID, SELFPAY ==
[2022-10-25 11:41] LABS: Erythrocyte Sedimentation Rate 9 mm/hr (0-30)
[2022-10-25 12:01] LABS: ALB/GLOB Ratio 0.9 RATIO (0.9-2.4); AST(SGOT) 11 U/L (15-37); Alanine Aminotransfer ALT/SGPT 21 U/L (13-56); Albumin, Serum 3.3 g/dL (3.2-5.0); Alkaline Phosphatase 81 U/L (45-117); Anion Gap 8 (5-15); BUN 11 mg/dL (7-18); Calcium,Total 8.4 mg/dL (8.5-10.1); Chloride 109 mmol/L (98-107); Creatinine, Serum 0.73 mg/dL (0.55-1.02); EST Glomerular Filtration Rate 103 mL/min (>60); Est Glom Filt Rate - Afr Amer 125 mL/min (>60); Globulin 3.5 g/dL (2.2-4.2); Glucose 90 mg/dL (74-106); LDH 151 U/L (84-246); Potassium 3.4 mmol/L (3.5-5.1); Protein, Total 6.8 g/dL (6.4-8.2); Sodium Level 138 mmol/L (136-145)
[2022-10-25 12:43] LABS: Absolute Lymphocyte Count 2.32 X10^3/uL (0.83-4.51); Absolute Neutrophil Count 3.2 X10^3/uL (2.0-7.7); Basophil# 0.05 X10^3/uL; Basophil% 0.8 % (0-1); Eosinophil# 0.57 X10^3/uL; Eosinophils% 8.7 % (0-5); Hematocrit 38.6 % (37-47); Hemoglobin 13.1 g/dL (12.0-15.0); Lymphocyte # 2.32 X10^3/ul (0.83-4.51); Lymphocyte % 35.5 % (19-41); Mean Corp Hgb Conc 33.9 g/dL (32-36); Mean Corpuscular Hgb 31.1 pg (27.0-32.0); Mean Corpuscular Volume 91.7 fL (81-99); Mean Platelet Vol. 8.2 fl (6.2-12.0); Monocyte# 0.35 X10^3/uL; Monocyte% 5.4 % (0-10); NRBC Flagged by Analyzer 0 % (0-5); Neutrophil # 3.22 X10^3/uL (2.7-7.7); Neutrophil % 49.3 % (47-70); Platelet Count 397 K/mm3 (150-450); RBC Distribution Width CV 13.2 % (11.6-14.6); RBC Distribution Width SD 44.1 fl (35.1-43.9); Red Blood Count 4.21 M/mm3 (4.2-5.4); White Blood Count 6.5 K/mm3 (4.4-11.0)
[2022-10-26 17:07] LABS: Endomysial Antibody IgA Negative (Negative); Immunoglobulin A 72 mg/dL (87-352)
[2022-10-27 08:14] LABS: t-Transglutaminase IgA <2 U/mL (0-3)
[2022-10-27 15:09] LABS: Albumin 3.4 g/dL (2.9-4.4); Alpha-1-Globulins 0.3 g/dL (0.0-0.4); Alpha-2-Globulins 0.9 g/dL (0.4-1.0); Cytoplasmic Ab (C-ANCA) <1:20 titer (Neg:<1:20); Gamma Globulin 0.8 g/dL (0.4-1.8); Immunoglobulin A 78 mg/dL (87-352); Immunoglobulin E 30 IU/mL (6-495); Immunoglobulin G 927 mg/dL (586-1602); Immunoglobulin M 55 mg/dL (26-217); PROEL- TOTAL PROTEIN 6.4 g/dL (6.0-8.5)
[2022-10-27 15:57] LABS: Perinuclear Ab (P-ANCA) <1:20 titer (Neg:<1:20)
[2022-10-29 12:08] LABS: Anti-Centromere B Ab <0.2 AI (0.0-0.9); Anti-Chromatin <0.2 AI (0.0-0.9); Anti-Jo <0.2 AI (0.0-0.9); Anti-Scleroderma-70 AB <0.2 AI (0.0-0.9); Beef <0.10 kU/L (Class 0); Corn <0.10 kU/L (Class 0); Egg, Whole <0.10 kU/L (Class 0); Milk (Cow) 0.25 kU/L (Class 0/I); Pork <0.10 kU/L (Class 0); RNP Ab <0.2 AI (0.0-0.9); SJOGREN'S Anti-SS-A test < 0.2 AI (0.0-0.9); SJOGREN'S Anti-SS-B test < 0.2 AI (0.0-0.9); Smith Ab <0.2 AI (0.0-0.9); Soybean <0.10 kU/L (Class 0); Wheat 0.51 kU/L (Class I)
[2022-10-29 13:34] LABS: Anti-dsDNA Ab <1 IU/mL (0-9); Chocolate <0.10 kU/L (Class 0)
== END | disposition home or self-care (01) ==
LOC: LAB 10:54
PROVIDERS: PCP Family Medicine; Referring Provider Internal Medicine Gastroenterology; Visit Provider Internal Medicine Gastroenterology
DX: R10.11 Right upper quadrant pain (principal); K22.10 Ulcer of esophagus without bleeding; T78.40XA Allergy, unspecified, initial encounter
CPT/HCPCS: 36415; 80053; 82784; 82785; 83516; 83615; 84165; 85025; 85652; 86003; 86005; 86140; 86225; 86235; 86255; 86256; 86334

== ENCOUNTER 2023-03-15 15:05 | Emergency (ER) | payer MEDICARE, MEDICAID, SELFPAY ==
[2023-03-15] VITALS (13 sets, daily range): BP systolic 104–116; BP diastolic 56–65; PULSE 59–75; RESP 14–22; TEMP 36.1; O2SAT 94–100; BMI 37.7
--- NOTE | 2023-03-15 16:28 | EKG12_ITS ---
Test Reason : CP Blood Pressure : / mmHG Vent. Rate : 074 BPM Atrial Rate : 074 BPM P-R Int : 158 ms QRS Dur : 080 ms QT Int : 378 ms P-R-T Axes : 051 071 035 degrees QTc Int : 419 ms Normal sinus rhythm with sinus arrhythmia Normal ECG Confirmed by LYDIA BERNARDO, OMAIRA ([id number]), purchasing expeditor JJ CAMARGO ([id number]) on 03/17/2023 8:56:20 AM Referred By: GRACE Confirmed By:AUGUSTUS FREEMAN MD
--- NOTE | 2023-03-15 16:40 | RAD_ITS ---
INDICATION: chest pain EXAMINATION/TECHNIQUE: X-RAY - XR Chest 1 View COMPARISON: FINDINGS: LINES/DEVICES: None. LUNGS: No consolidation, edema or effusion. No pneumothorax. MEDIASTINUM AND CARDIOVASCULAR STRUCTURES: Cardiac silhouette not enlarged. Central airways and mediastinal contour are unremarkable. BONES AND SOFT TISSUES: Unremarkable. RAD/Chest 1 View (Portable) IMPRESSION: No radiographic evidence of acute cardiopulmonary disease. Electronically Signed: Lela Dugan MD at 16:57 EDT Reading Location ID and State: [id number] / Tel , Service support ,
[2023-03-15 16:44] LABS: Absolute Lymphocyte Count 2.69 X10^3/uL (0.83-4.51); Absolute Neutrophil Count 5.1 X10^3/uL (2.0-7.7); Basophil# 0.07 X10^3/uL; Basophil% 0.8 % (0-1); Eosinophils% 10.8 % (0-5); Hematocrit 38.2 % (37-47); Hemoglobin 13.2 g/dL (12.0-15.0); Lymphocyte # 2.69 X10^3/ul (0.83-4.51); Lymphocyte % 28.9 % (19-41); Mean Corp Hgb Conc 34.6 g/dL (32-36); Mean Corpuscular Hgb 31.9 pg (27.0-32.0); Mean Corpuscular Volume 92.3 fL (81-99); Mean Platelet Vol. 8.2 fl (6.2-12.0); Monocyte# 0.42 X10^3/uL; Monocyte% 4.5 % (0-10); NRBC Flagged by Analyzer 0 % (0-5); Neutrophil % 54.8 % (47-70); Platelet Count 341 K/mm3 (150-450); RBC Distribution Width CV 12.7 % (11.6-14.6); RBC Distribution Width SD 42.5 fl (35.1-43.9); Red Blood Count 4.14 M/mm3 (4.2-5.4); White Blood Count 9.3 K/mm3 (4.4-11.0)
--- NOTE | 2023-03-15 17:05 | EDS_ITS ---
HPI History of Present Illness Chief Complaint: Chest Pain Narrative Narrative: 22-year-old male presenting with left-sided chest pain. She states been constant since yesterday at 5. She never had pain like this before. She states it feels sharp and hurts when she takes a deep breath. Patient is on oral control. No history of DVT/PE. No recent travel, history malignancy, recent surgery, immobilization. Denies cardiac history. Patient does report that she recently moved out of her boyfriend's house which was very dirty and the air inside the apartment was not good. She moved back to her mother's house. Patient denies any fevers or cough. She feels generally weak and sleeps 12 hours a day, however she states has been doing this for months. [facility] Medical History Allergic reaction (~10/22/22) Anxiety Anxiety Back pain Blackout Depression Gastric reflux Hip abductor tendonitis History of hiatal hernia Injury of head and neck Migraine headache Non-smoker Wears glasses Home Medications Desogestrel-Ethinyl Estradiol [Apri 28 Day Tablet] 1 ea PO DAILY 11/03/18 [History Last Taken Unknown] acetaminophen 500 mg tablet 500 - 1,000 mg PO Q6H PRN PRN Headache 11/03/18 [History Last Taken Unknown] uvamexo-nssquslybrxjw-jromiand 250 mg-250 mg-65 mg tablet (Headache Relief (ASA- acetaminophn-caffeine)) 1 ea PO BID PRN Headache 11/03/18 [History Last Taken Unknown] buspirone 15 mg tablet 15 mg PO BID PRN Anxiety 11/03/18 [History Last Taken Unknown] ibuprofen 200 mg tablet 600 - 800 mg PO Q6H PRN PRN Pain 11/03/18 [History Last Taken Unknown] topiramate 50 mg tablet 50 mg PO BID 11/03/18 [History Last Taken Unknown] ondansetron 4 mg disintegrating tablet 4 mg PO Q8H PRN nausea and vomiting #10 tabs 07/19/22 [Rx Last Taken Unknown] pantoprazole 40 mg tablet,delayed release (Protonix) 40 mg PO DAILY #30 tabs 07/19/22 [Rx Last Taken Unknown] dextroamphetamine-amphetamine ER 20 mg 24hr capsule,extend release 20 mg PO DAILY 09/14/22 [History Last Taken Unknown] fluoxetine 40 mg capsule (Prozac) 40 mg PO DAILY 09/14/22 [History Last Taken Unknown] gabapentin 100 mg capsule 100 mg PO QHS 09/14/22 [History Last Taken Unknown] hydroxyzine pamoate 25 mg capsule 25 mg PO PRN PRN Anxiety 09/14/22 [History Last Taken Unknown] rimegepant 75 mg disintegrating tablet (Nurtec ODT) 75 mg PO PRN PRN MIGRAINES 09/14/22 [History Last Taken Unknown] Allergy/AdvReac Type Severity Reaction Status Date / Time azithromycin AdvReac Diarrhea Verified 03/15/23 15:07 GLUTEN Allergy Mild Abd Uncoded 03/15/23 15:07 cramps/diarrhea Family History Mother Diabetes Cancer skin Thyroid disorder Father Diabetes Hypertension Surgical History History of surgery on lower extremity Hx of tonsillectomy S/P cholecystectomy Social History Smoking Status: Never smoker alcohol intake: never ROS ROS ED Constitutional Constitutional ED: Denies chills, fever(s) or sweats Eyes Eyes: Denies blurry vision or change in vision ENT ENT ED: Denies ear pain or sore throat Cardiovascular Cardiovascular: Reports chest pain; Denies palpitations or racing heartbeat Respiratory/Chest Respiratory/Chest: Denies cough, dyspnea or sputum Gastrointestinal Gastrointestinal: Denies abdominal pain, constipation, diarrhea, nausea or vomiting Genitourinary Genitourinary ED: Denies dysuria, hematuria or urinary frequency Musculoskeletal Musculoskeletal: Denies arthralgias, myalgias or neck pain Integumentary Denies abscess, Abrasions or rash Neurologic Neurologic: Denies headache(s), paresthesias or weakness Psychiatric Psychiatric: Denies anxiety, depression, suicidal ideation or suicidal thoughts Endocrine Endocrinology: Denies polydipsia or polyuria EXAM Physical Exam Const Vital Signs: 03/15/23 15:07 03/15/23 16:36 03/15/23 16:37 Temperature 97 F L Temperature Source Temporal Pulse Rate 75 Respiratory Rate 14 Respiratory Pattern Normal Blood Pressure 116/65 Blood Pressure Mean 82 Pulse Ox 100 Oxygen Delivery Method Room Air Room Air 03/15/23 17:05 03/15/23 17:25 03/15/23 17:30 Temperature Temperature Source Pulse Rate 68 60 62 Respiratory Rate 18 19 H 20 H Respiratory Pattern Blood Pressure 104/64 110/56 L Blood Pressure Mean 77 71 Pulse Ox 98 100 94 Oxygen Delivery Method Room Air 03/15/23 17:40 03/15/23 17:45 03/15/23 17:50 Temperature Temperature Source Pulse Rate 62 60 63 Respiratory Rate 20 H 18 21 H Respiratory Pattern Blood Pressure 104/64 Blood Pressure Mean 76 Pulse Ox 100 100 Oxygen Delivery Method 03/15/23 18:00 03/15/23 18:10 03/15/23 18:15 Temperature Temperature Source Pulse Rate 59 L 61 Respiratory Rate 21 H 21 H Respiratory Pattern Blood Pressure 110/65 107/61 Blood Pressure Mean 78 74 Pulse Ox 100 97 Oxygen Delivery Method 03/15/23 18:20 03/15/23 18:30 03/15/23 18:40 Temperature Temperature Source Pulse Rate 61 60 61 Respiratory Rate 19 H 18 22 H Respiratory Pattern Blood Pressure 108/60 Blood Pressure Mean 74 Pulse Ox 100 98 99 Oxygen Delivery Method General Appearance ED: Negative for pallor HEENT Reports normocephalic, head/scalp atraumatic and moist mucous membranes Eyes PERRL and EOMs intact bilaterally Neck no lymphadenopathy and supple Chest Wall inspection of chest normal and palpation of chest normal Resp normal respiratory effort and clear to auscultation bilaterally Auscultation: Negative for rales, rhonchi or wheezes Cardio regular rate and regular rhythm GI Auscultation: normoactive bowel sounds Palpation: soft Narrative: Deferred Neuro oriented x3 and CN's II-XII intact bilaterally Sensorium / Orientation: alert Motor Exam: strength 5/5 throughout Psych mental status grossly normal Attitude: No agitated Skin no rashes or lesions noted and no wounds General Skin Exam: Negative for jaundice or pallor MDM MDM MDM Narrative Medical decision making narrative: 22-year-old female presenting with chest pain. Left-sided. Differential includes acute coronary syndrome, pneumonia, PE. Unlikely to be pneumothorax but she has equal symmetric breath sounds and chest wall rise. CBC will be obtained to assess for white blood cell count, hemoglobin, platelets. BMP to assess renal function electrolytes. High-sensitivity troponin and EKG to assess for ischemia. Chest x-ray to rule out pneumonia. CBC shows no leukocytosis. Hemoglobin hematocrit are stable. Platelets are normal. Renal function electrolytes within normal limits. High-sensitivity troponin is 3. EKG on my interpretation shows a normal sinus rhythm with a ventricular rate of 74 bpm without sign of ischemic change. Chest x-ray my interpretation shows no acute process. Radiologist interprets this and agrees. D-dimer was negative. Given the patient had pain since 5:00 yesterday and her troponin is normal I do not believe she is a delta troponin. Since her D-dimer is negative and ablation is CTA and she is low risk for PE. Patient counseled on all findings. She will be discharged home in stable condition and return precautions again were discussed Impression: 1. Chest pain Lab Data Labs: Laboratory Results - last 24 hr 03/15/23 16:40 WBC 9.3 RBC 4.14 L Hgb 13.2 Hct 38.2 MCV 92.3 MCH 31.9 MCHC 34.6 RDW Std Deviation 42.5 RDW Coeff of Billy 12.7 Plt Count 341 MPV 8.2 Immature Gran % (Auto) 0.200 Neut % (Auto) 54.8 Lymph % (Auto) 28.9 Ray % (Auto) 4.5 Eos % (Auto) 10.8 H Baso % (Auto) 0.8 Absolute Neuts (auto) 5.1 Absolute Lymphs (auto) 2.69 Nucleated RBC % 0 D-Dimer Quant (PE/DVT) 0.35 Sodium 138 Potassium 3.9 Chloride 111 H Carbon Dioxide 24.0 Anion Gap 3 L BUN 12 Creatinine 0.72 Estim Creat Clear Calc 117.16 Est GFR (MDRD) Af Amer 127 Est GFR (MDRD) Non-Af 105 BUN/Creatinine Ratio 16.6 Glucose 82 Calcium 8.5 Troponin I High Sens 3 Radiography Diagnostic Testing: Clinical Impression(s) from Imaging Studies Chest X-Ray 03/15/23 16:40 IMPRESSION: No radiographic evidence of acute cardiopulmonary disease. Electronically Signed: Lela Dugan MD at 16:57 EDT [place] Location ID and State: [id number] / Tel , Service support , Discharge Plan Triage Chief Complaint: Chest Pain Other Complaint: Shortness of Breath ED Provider: Keith Parker Dx/Rx/DC Orders Instructions: ED Chest Pain, Noncardiac Prescriptions: No Action acetaminophen 500 MG tablet 500 - 1,000 mg PO Q6H PRN PRN (Reason: Headache) ibuprofen 200 MG tablet 600 - 800 mg PO Q6H PRN PRN (Reason: Pain) Headache Relief (DAK-oziz-ynu) 1 EACH tablet 1 ea PO BID PRN (Reason: Headache) buspirone 15 MG tablet 15 mg PO BID PRN (Reason: Anxiety) topiramate 50 MG tablet 50 mg PO BID Desogestrel-Ethinyl Estradiol [Apri 28 Day Tablet] 1 EACH tablet 1 ea PO DAILY ondansetron 4 mg tablet,disintegrating 4 mg PO Q8H PRN (Reason: nausea and vomiting) Qty: 10 0RF pantoprazole [Protonix] 40 mg tablet,delayed release (DR/EC) 40 mg PO DAILY Qty: 30 0RF fluoxetine [Prozac] 40 mg capsule 40 mg PO DAILY dextroamphetamine-amphetamine 20 mg capsule,extended release 24hr 20 mg PO DAILY gabapentin 100 mg capsule 100 mg PO QHS hydroxyzine pamoate 25 mg capsule 25 mg PO PRN PRN (Reason: Anxiety) Patient Comments: TAKE 1 CAPSULE BY MOUTH EVERY 4 HOURS NEEDED FOR ANXIETY, NOT TO EXCEED 3 DOSES IN A 24 HOUR PERIOD Nurtec ODT 75 mg tablet,disintegrating 75 mg PO PRN PRN (Reason: MIGRAINES) Primary Care Provider: Fani Fisher Referrals: Fani Fisher MD [Primary Care Provider] - Disposition Disposition: Home, Self Care Discharge Date/Time: 03/15/23 18:44
[2023-03-15 17:12] LABS: Anion Gap 3 (5-15); BUN 12 mg/dL (7-18); BUN/Creat Ratio 16.6 RATIO (10-20); Calcium,Total 8.5 mg/dL (8.5-10.1); Chloride 111 mmol/L (98-107); Creatinine, Serum 0.72 mg/dL (0.55-1.02); EST Glomerular Filtration Rate 105 mL/min (>60); Est Glom Filt Rate - Afr Amer 127 mL/min (>60); Estimated Creatinine Clearance 117.16 ml/min; Glucose 82 mg/dL (74-106); Potassium 3.9 mmol/L (3.5-5.1); Sodium Level 138 mmol/L (136-145); Troponin-I HS 3 pg/mL (3.0-54.0)
[2023-03-15] MEDS: Ketorolac 15 MG/ML Vial IV (17:17)
[2023-03-15 17:53] LABS: D-Dimer Quantitative (DVT/PE) 0.35 FEU/ug/m (0.27-0.49)
== END 2023-03-15 18:44 | disposition home or self-care (01) ==
PROVIDERS: Emergency Provider Student in an Organized Health Care Education/Training Program; PCP Family Medicine; Visit Provider Student in an Organized Health Care Education/Training Program
DX: R07.9 Chest pain, unspecified (principal); Z79.3 Long term (current) use of hormonal contraceptives; F41.9 Anxiety disorder, unspecified; Z79.899 Other long term (current) drug therapy; G43.909 Migraine, unspecified, not intractable, without status migrainosus; K21.9 Gastro-esophageal reflux disease without esophagitis; F32.A Depression, unspecified; Z90.49 Acquired absence of other specified parts of digestive tract
CPT/HCPCS: 71045; 80048; 84484; 85025; 85379; 93005; 96374; 99284; A4216

== ENCOUNTER 2023-08-11 00:04 | Emergency (ER) | payer MEDICARE, MEDICAID, SELFPAY ==
[2023-08-11 00:04] VITALS: BP 131/80; PULSE 77; RESP 18; TEMP 36; O2SAT 97; BMI 41.4
[2023-08-11 00:41] LABS: Absolute Neutrophil Count 5.2 X10^3/uL (2.0-7.7); Basophil# 0.06 X10^3/uL; Basophil% 0.6 % (0-1); Eosinophil# 0.78 X10^3/uL; Eosinophils% 7.6 % (0-5); Hematocrit 40.1 % (37-47); Hemoglobin 13.3 g/dL (12.0-15.0); Lymphocyte % 36.1 % (19-41); Mean Corp Hgb Conc 33.2 g/dL (32-36); Mean Corpuscular Hgb 29.8 pg (27.0-32.0); Mean Corpuscular Volume 89.7 fL (81-99); Mean Platelet Vol. 7.8 fl (6.2-12.0); Monocyte# 0.47 X10^3/uL; Monocyte% 4.6 % (0-10); NRBC Flagged by Analyzer 0 % (0-5); Neutrophil # 5.21 X10^3/uL (2.7-7.7); Neutrophil % 50.8 % (47-70); Platelet Count 386 K/mm3 (150-450); RBC Distribution Width CV 13.2 % (11.6-14.6); RBC Distribution Width SD 42.9 fl (35.1-43.9); Red Blood Count 4.47 M/mm3 (4.2-5.4); White Blood Count 10.3 K/mm3 (4.4-11.0)
[2023-08-11 00:50] LABS: Mucous, Urine 0 SEEN /hpf (<or=2+)
[2023-08-11 00:53] LABS: Color, Urine Yellow (Yellow); Glucose, Dipstick Normal (Normal); Ketone-Dipstick 5 mg/dl (Negative); Leukocyte Esterase-Dipstick 100 /ul (Negative); Nitrite-Dipstick Negative (Negative); Occult Blood-Urine 150 /ul (Negative); Protein-Dipstick 15 mg/dl (Negative); Specific Gravity, Urine 1.025 (1.002-1.030); Urine Bilirubin Dipstick Negative (Negative); Urine Clarity Clear (Clear); Urine Urobilinogen Normal (Normal)
[2023-08-11 01:09] LABS: ALB/GLOB Ratio 0.9 RATIO (0.9-2.4); AST(SGOT) 13 U/L (15-37); Alanine Aminotransfer ALT/SGPT 49 U/L (13-56); Albumin, Serum 3.1 g/dL (3.2-5.0); Alkaline Phosphatase 101 U/L (45-117); Anion Gap 6 (5-15); BUN 9 mg/dL (7-18); BUN/Creat Ratio 13.8 RATIO (10-20); Calcium,Total 8.8 mg/dL (8.5-10.1); Chloride 109 mmol/L (98-107); Creatinine, Serum 0.65 mg/dL (0.55-1.02); EST Glomerular Filtration Rate 117 mL/min (>60); Est Glom Filt Rate - Afr Amer 142 mL/min (>60); Estimated Creatinine Clearance 128.66 ml/min; Globulin 3.5 g/dL (2.2-4.2); Glucose 92 mg/dL (74-106); Potassium 3.7 mmol/L (3.5-5.1); Protein, Total 6.6 g/dL (6.4-8.2); Sodium Level 142 mmol/L (136-145)
[2023-08-11 01:10] LABS: Calcium Oxalate Crystals Ur 1+ /hpf (<or=2+); Internal QC Validated? YES +Cl - CLEAR BKGD; Pregnancy, Urine Negative Negative
[2023-08-11 01:11] LABS: Bacteria 1+ /hpf (None Seen); Red Blood Cells-Urine 0-5 SEEN /hpf (0-5); Squamous Epithelial Cells - UA 10-25 SEEN /hpf (5-10)
[2023-08-11 01:12] LABS: White Blood Cells 0-5 SEEN /hpf (0-5)
--- NOTE | 2023-08-11 01:17 | CT_ITS ---
EXAM: CT Abdomen And Pelvis W/O Contrast Injection HISTORY: let flank pain TECHNIQUE: Routine protocol CT abdomen and pelvis. IV Contrast: None.. Oral contrast: None. RADIATION DOSAGE (If Supplied By Facility): CTDIvol = ( 23.7 ) mGy, DLP = ( 1247.80 ) mGycm Individualized dose optimization techniques were used for this CT. COMPARISON: None. LIMITATIONS: None. FINDINGS: LOWER CHEST: Included lung bases are clear. LIVER: Fatty infiltration. GALLBLADDER AND BILIARY TREE: Gallbladder not identified presumed surgically absent. PANCREAS: Grossly unremarkable. SPLEEN: Grossly unremarkable. ADRENAL GLANDS: Grossly unremarkable. KIDNEYS AND URETERS: No calculi demonstrated. No hydronephrosis. PERITONEUM: No free air. No free fluid. BOWEL: No bowel obstruction. Several prominent lymph nodes in the mesentery nonspecific. APPENDIX: Visualized and unremarkable. No evidence of acute appendicitis. VESSELS: Abdominal aorta is normal caliber. REPRODUCTIVE ORGANS: Grossly unremarkable URINARY BLADDER: Mildly distended. ABDOMINAL WALL: Unremarkable. BONES: No acute abnormalities. CT/Abdomen/Pelvis without Cont IMPRESSION: Prominent mesenteric lymph nodes nonspecific, can be seen with mesenteric adenitis in the proper clinical setting. No other acute findings. Hepatic steatosis. Electronically Signed: Krysta Solano MD at 3:01 [facility] ,
--- NOTE | 2023-08-11 01:18 | EDS_ITS ---
HPI HPI - GI History of Present Illness Chief Complaint: Flank Pain Narrative Narrative: 23-year-old female presenting with left-sided abdominal pain. She states is in the lower left abdomen. It radiates to her back. Patient states he had back pain for the last couple of days. Patient states she started having more of a flank pain today. She states she had urinary symptoms 2 days ago but does not have this anymore. No history of kidney stones. No fevers, chills. She has nausea without vomiting. She states her only abdominal surgery is gallbladder removal. Denies concern for . No constipation or diarrhea. Last bowel movement today. Patient does states she has celiac's disease and on [place] and jeremiah had eaten multiple things that would have upset her stomach. She states she ate pie and macaroni and cheese and the gluten typically would make her upset stomach and some gassiness. She never gets left leg pain like this however with it. PFSH [facility] Medical History Allergic reaction (~10/22/22) Anxiety Anxiety Back pain Blackout Depression Gastric reflux GERD (gastroesophageal reflux disease) Hip abductor tendonitis History of hiatal hernia Injury of head and neck Migraine headache Migraines Non-smoker Seizures Wears glasses Home Medications Desogestrel-Ethinyl Estradiol [Apri 28 Day Tablet] 1 ea PO DAILY 11/03/18 [History Last Taken Unknown] acetaminophen 500 mg tablet 500 - 1,000 mg PO Q6H PRN PRN Headache 11/03/18 [History Last Taken Unknown] mpminnp-dlszmdmkaaqib-enykbrrg 250 mg-250 mg-65 mg tablet (Headache Relief (RJZ-tghfogpukrvk-zxfytqvr)) 1 ea PO BID PRN Headache 11/03/18 [History Last Taken Unknown] buspirone 15 mg tablet 15 mg PO BID Anxiety 11/03/18 [History Last Taken Unknown] ibuprofen 200 mg tablet 600 - 800 mg PO Q6H PRN PRN Pain 11/03/18 [History Last Taken Unknown] topiramate 50 mg tablet 100 mg PO BID 11/03/18 [History Last Taken Unknown] ondansetron 4 mg disintegrating tablet 4 mg PO Q8H PRN nausea and vomiting #10 tabs 07/19/22 [Rx Last Taken Unknown] pantoprazole 40 mg tablet,delayed release (Protonix) 40 mg PO DAILY #30 tabs 07/19/22 [Rx Last Taken Unknown] dextroamphetamine-amphetamine ER 20 mg 24hr capsule,extend release 20 mg PO DAILY 09/14/22 [History Last Taken Unknown] fluoxetine 40 mg capsule (Prozac) 40 mg PO DAILY 09/14/22 [History Last Taken Unknown] gabapentin 100 mg capsule 100 mg PO QHS 09/14/22 [History Last Taken Unknown] hydroxyzine pamoate 25 mg capsule 25 mg PO PRN PRN Anxiety 09/14/22 [History Last Taken Unknown] rimegepant 75 mg disintegrating tablet (Nurtec ODT) 75 mg PO PRN PRN MIGRAINES 09/14/22 [History Last Taken Unknown] acetaminophen 500 mg tablet (Tylenol Extra Strength) 1,000 mg (2 x 500 mg) PO Q6H PRN pain #20 tabs 08/11/23 [Rx Last Taken Unknown] ibuprofen 600 mg tablet 600 mg PO Q8H PRN PRN pain #20 TABLETS 08/11/23 [Rx Last Taken Unknown] ondansetron 4 mg disintegrating tablet 4 mg PO Q8H PRN PRN Nausea #14 tabs 08/11/23 [Rx Last Taken Unknown] Allergy/AdvReac Type Severity Reaction Status Date / Time gluten Allergy Diarrhea Verified 08/11/23 00:06 azithromycin AdvReac Diarrhea Verified 08/11/23 00:06 Family History Mother Diabetes Cancer skin Thyroid disorder Father Diabetes Hypertension Surgical History History of cholecystectomy History of surgery on lower extremity Hx of tonsillectomy S/P cholecystectomy Social History Smoking Status: Never smoker alcohol intake: never ROS ROS ED Constitutional Constitutional ED: Denies chills, fever(s) or sweats Eyes Eyes: Denies blurry vision or change in vision ENT ENT ED: Denies ear pain or sore throat Cardiovascular Cardiovascular: Denies chest pain, palpitations or racing heartbeat Respiratory/Chest Respiratory/Chest: Denies cough, dyspnea or sputum Gastrointestinal Gastrointestinal: Reports abdominal pain and nausea; Denies constipation, diarrhea or vomiting Genitourinary Genitourinary ED: Denies dysuria, hematuria or urinary frequency Musculoskeletal Musculoskeletal: Reports back pain; Denies arthralgias or myalgias Integumentary Denies abscess, Abrasions or rash Neurologic Neurologic: Denies headache(s), paresthesias or weakness Psychiatric Psychiatric: Denies anxiety, depression, suicidal ideation or suicidal thoughts Endocrine Endocrinology: Denies polydipsia or polyuria EXAM Physical Exam Const Vital Signs: 08/11/23 00:04 08/11/23 02:04 Temperature 96.8 F L Temperature Source Temporal Pulse Rate 77 69 Respiratory Rate 18 16 Blood Pressure 131/80 H Blood Pressure Mean 97 Pulse Ox 97 96 Oxygen Delivery Method Room Air Positive well nourished and obese General Appearance ED: Negative for pallor Nutritional Appearance: obese HEENT Reports moist mucous membranes normocephalic Eyes PERRL Neck no lymphadenopathy Resp normal respiratory effort Cardio regular rate and regular rhythm GI non-tender, non-distended and no masses Back/Spine Back/Spine Narrative: Tenderness to palpation left lumbar paraspinal musculature. This is to light touch. No rashes, ecchymosis. Extremity full ROM Neuro CN's II-XII intact bilaterally Psych mental status grossly normal Skin no wounds General Skin Exam: Negative for jaundice or pallor MDM MDM MDM Narrative Medical decision making narrative: Patient presenting with left flank pain. I am unable to reproduce any abdominal pain. She has tenderness to light touch of the left lumbar paraspinal musculature but no CVA tenderness is obvious. Differential includes constipation, celiac disease, dehydration, electrolyte abnormalities, bowel obstruction, kidney stone, UTI, pyelonephritis. Patient medicated with Toradol and Zofran. CBC was obtained to assess white blood cell count, hemoglobin, platelets. CMP to assess liver function renal function, electrolytes. Urinalysis to assess for UTI. CBC and CMP unremarkable. Urinalysis negative for infection but does show occult blood. Given this we will obtain a CT scan without contrast to look for kidney stone. CT scan positive for mesenteric adenitis. No other acute findings were found. Patient counseled Tylenol, ibuprofen, Zofran for home. Return precautions discussed. Impression: 1. Mesenteric adenitis Lab Data Attestation: I reviewed the patient's lab results. Labs: Laboratory Results - last 24 hr 08/11/23 08/11/23 00:32 00:46 WBC 10.3 RBC 4.47 Hgb 13.3 Hct 40.1 MCV 89.7 MCH 29.8 MCHC 33.2 RDW Std Deviation 42.9 RDW Coeff of Billy 13.2 Plt Count 386 MPV 7.8 Immature Gran % (Auto) 0.300 Neut % (Auto) 50.8 Lymph % (Auto) 36.1 [place] % (Auto) 4.6 Eos % (Auto) 7.6 H Baso % (Auto) 0.6 Absolute Neuts (auto) 5.2 Absolute Lymphs (auto) 3.70 Nucleated RBC % 0 Sodium 142 Potassium 3.7 Chloride 109 H Carbon Dioxide 27.0 Anion Gap 6 BUN 9 Creatinine 0.65 Estim Creat Clear Calc 128.66 Est GFR (MDRD) Af Amer 142 Est GFR (MDRD) Non-Af 117 BUN/Creatinine Ratio 13.8 Glucose 92 Calcium 8.8 Total Bilirubin 0.20 AST 13 L ALT 49 Alkaline Phosphatase 101 Total Protein 6.6 Albumin 3.1 L Globulin 3.5 Albumin/Globulin Ratio 0.9 Urine Color Yellow Urine Clarity Clear Urine pH 5.0 Ur Specific [place] 1.025 Urine Protein 15 H Urine Glucose (UA) Normal Urine Ketones 5 H Urine Occult Blood 150 H Urine Nitrite Negative Urine Bilirubin Negative Urine Urobilinogen Normal Ur Leukocyte Esterase 100 H Urine RBC 0-5 SEEN Urine WBC 0-5 SEEN Ur Squamous Epith Cells 10-25 SEEN Calcium Oxalate Crystal 1+ Urine Bacteria 1+ Urine Mucus 0 SEEN Urine Test Negative Radiography Diagnostic Testing: Clinical Impression(s) from Imaging Studies Abdomen/Pelvis CT 08/11/23 01:17 IMPRESSION: Prominent mesenteric lymph nodes nonspecific, can be seen with mesenteric adenitis in the proper clinical setting. No other acute findings. Hepatic steatosis. Electronically Signed: Krysta Solano MD at 3:01 EST , Discharge Plan Triage Chief Complaint: Flank Pain ED Provider: Keith Parker Dx/Rx/DC Orders Instructions: ED Adenitis, Mesenteric Prescriptions: New ondansetron 4 mg tablet,disintegrating 4 mg PO Q8H PRN PRN (Reason: Nausea) Qty: 14 0RF ibuprofen 600 mg tablet 600 mg PO Q8H PRN PRN (Reason: pain) Qty: 20 0RF acetaminophen [Tylenol Extra Strength] 500 mg tablet 1,000 mg PO Q6H PRN (Reason: pain) Qty: 20 0RF No Action acetaminophen 500 MG tablet 500 - 1,000 mg PO Q6H PRN PRN (Reason: Headache) ibuprofen 200 MG tablet 600 - 800 mg PO Q6H PRN PRN (Reason: Pain) Headache Relief (OTZ-putx-kos) 1 EACH tablet 1 ea PO BID PRN (Reason: Headache) buspirone 15 MG tablet 15 mg PO BID topiramate 50 MG tablet 100 mg PO BID Desogestrel-Ethinyl Estradiol [Apri 28 Day Tablet] 1 EACH tablet 1 ea PO DAILY ondansetron 4 mg tablet,disintegrating 4 mg PO Q8H PRN (Reason: nausea and vomiting) Qty: 10 0RF pantoprazole [Protonix] 40 mg tablet,delayed release (DR/EC) 40 mg PO DAILY Qty: 30 0RF fluoxetine [Prozac] 40 mg capsule 40 mg PO DAILY dextroamphetamine-amphetamine 20 mg capsule,extended release 24hr 20 mg PO DAILY gabapentin 100 mg capsule 100 mg PO QHS hydroxyzine pamoate 25 mg capsule 25 mg PO PRN PRN (Reason: Anxiety) Patient Comments: TAKE 1 CAPSULE BY MOUTH EVERY 4 HOURS NEEDED FOR ANXIETY, NOT TO EXCEED 3 DOSES IN A 24 HOUR PERIOD Nurtec ODT 75 mg tablet,disintegrating 75 mg PO PRN PRN (Reason: MIGRAINES) Primary Care Provider: Fani Fisher Referrals: Fani Fisher MD [Primary Care Provider] - Disposition Disposition: Home, Self Care
[2023-08-11] MEDS: Ketorolac 15 MG/ML Vial IM (01:24)
[2023-08-11] MEDS: Ondansetron 4 MG/2 ML Vial IV (01:24)
[2023-08-11 02:04] VITALS: PULSE 69; RESP 16; O2SAT 96
--- OUTSIDE RECORDS SUMMARY | 2023-08-11 02:09 | XMS RPT_ITS | CCD ---
Author Name Unknown Address [address] [place] [address] Organization [facility] Care Team Providers Care Supervisor [employer] Name Role Phone WEYAND, ANIL Unavailable Unavailable PLAYL, PEDRO LUIS M Unavailable Unavailable PLAYL, PEDRO LUIS M Unavailable Unavailable WEYAND, ANIL Unavailable Unavailable PLAYL, PEDRO LUIS M Unavailable Unavailable PLAYL, PEDRO LUIS M Unavailable Unavailable TORRES, NANCY Unavailable Unavailable PLAYL, PEDRO LUIS M Unavailable Unavailable PLAYL, PEDRO LUIS M Unavailable Unavailable JACOBS, IAM N Unavailable Unavailable TORRES, NANCY Unavailable Unavailable PLAYL, PEDRO LUIS M Unavailable Unavailable WEYAND, ANIL Unavailable Unavailable PLAYL, PEDRO LUIS M Unavailable Unavailable PLAYL, PEDRO LUIS M Unavailable Unavailable WEYAND, ANIL Unavailable Unavailable PLAYL, PEDRO LUIS M Unavailable Unavailable PLAYL, PEDRO LUIS M Unavailable Unavailable TORRES, ANNCY Unavailable Unavailable PLAYL, PEDRO LUIS M Unavailable Unavailable PLAYL, PEDRO LUIS M Unavailable Unavailable WEYAND, ANIL Unavailable Unavailable PLAYL, PEDRO LUIS M Unavailable Unavailable ROSS FISHER Unavailable Unavailable Unavailable Primary Care Provider Unavailmadai FISHER MD, DR HAWKINS A Primary Care Physician DR ROSS FISHER MD A Primary Care Physician Pedro Luis Hogan MD Primary Care Provider Pedro Luis Hogan MD Primary Care Provider PLAYFiliberto, PEDRO LUIS Erin Primary Care Unavailable MARCY PALACIO Attending Unavailab GREG Puckett Referring Unavailable EMMANUELLE PADILLA Attending Unavailable PLAYL, PEDRO LUIS M Primary Care Unavailable GREG ROBLES Referring Unavailable PLAYL, PEDRO LUIS M Primary Care Unavailable GREG ROBLES Attending Unavailable PLAYL, PEDRO LUIS M Primary Care Unavailable PADILLAEMMANUELLE Knapp Referring Unavailable PLAYL, PEDRO LUIS M Primary Care Unavailable GREG ROBLES Attending Unavailable MALIKAL, PEDRO LUIS M Primary Care Unavailable MALIKAL, PEDRO LUIS M Primary Care Unavailable TIM HARRY Attending Unavailable MALIKAL, PEDRO LUIS M Primary Care Unavailable LAURENCE ANGELO Attending Unavailable PLAYL, PEDRO LUIS M Primary Care Unavailable TIM HARRY Attending Unavailable MALIKAL, PEDRO LUIS M Primary Care Unavailable JUSTIN BUTTERFIELD Attending Unavailable ADALID BERNARDO, CATHERINE Grant Attending Unavailable SASHA BERNARDO, DR ROSS Chun Primary Care Unavailabl daniel SHANKS DO, DR CLAUDIA Grant Attending Unavailable SASHA BERNARDO, DR ROSS Chun Primary Care Unavailabl e KYLAH MORRISON, TSERING Attending Unavailable SASHA BERNARDO, DR ROSS Chun Primary Care Unavailmadai LUNDY MD, PEDRO LUIS Attending Unavailable SASHA BERNARDO, DR ROSS Chun Primary Care Unavailmadai CORDOBA MD, CATHERINE Grant Attending Unavailable SASHA BERNARDO, DR ROSS Chun Primary Care Unavailmadai MCCALL MD, DR ARIZMENDI Attending Unavailmadai FISHER MD, DR ROSS Chun Primary Care Unavailabl e JOSY ROWE, JESSICA Khan Attending Unavailable SASHA BERNARDO, DR ROSS Chun Primary Care Unavailmadai CASON MD, NINO Graham Attending Unavailable SASHA BERNARDO, DR ROSS Chun Primary Care Unavailabl e ANTHONY MORRISON, JANAK Attending Unavailable SASHA BERNARDO, DR ROSS Chun Primary Care Unavailabl e DIMITRIS MORRISON, DR CLAUDIA Grant Attending Unavailable SASHA BERNARDO, DR ROSS Chun Primary Care Unavailabl e JULIANN MORRISON, HEATH Attending Unavailable SASHA BERNARDO, DR ROSS Chun Primary Care Unavailabl e Allergies Allergy Classification Reported Allergen(s) Allergy Type Date of Onset Reaction(s) Facility (20 sources) azithromycin; Translations: [AZITHROMYCIN] Drug Allergy 3 Other (See Comments), Diarrhea [facility] (6 sources) SUMAtriptan; Translations: [SUMATRIPTAN] Drug Allergy 2 Vomiting [facility] (2 sources) Gluten Food allergy [facility] (2 sources) Dairy products Food allergy [facility] Medications Current Medications Medication Drug Class(es) Dates Sig (Normalized) Sig (Original) acetaminophen 325 mg / butalbital 50 mg / caffeine 40 mg oral tablet (2 sources) Barbiturate, Central Nervous System Stimulant, Methylxanthine Start: 04-17-2022 End: 04-22-2022 take 1 tablet by mouth every six hours as needed APAP/butalbital/ caffeine 325-50-40 mg oral tablet (Fioricet) Dose = 1 tab(s), Oral, q6h, PRN as needed, X 5 day(s), # 12 tab(s), 0 Refill(s) Start Date: 04/17/22 Stop Date: 04/22/22 Status: Ordered Completed/Discontinued Medications Medication Drug Class(es) Dates Sig (Normalized) Sig (Original) acetaminophen 325 mg oral tablet (1 source) End: 01-26-2020 take 2 tablets by mouth every six hours as needed for pain acetaminophen (TYLENOL) 325 MG tablet Take 650 mg by mouth every 6 hours as needed for Pain 0 01/26/2020 Discontinued (LIST CLEANUP) [id number] 200 actuat albuterol 0.09 mg/actuat metered dose inhaler (7 sources) beta2-Adrenergic Agonist Start: 01-05-2018 End: 07-27-2022 take 2 puff(s) by inhalation every four hours as needed albuterol HFA (PROVENTIL HFA, VENTOLIN HFA) 90 mcg/actuation inhaler Inhale 2 Puffs as instructed every 4 hours as needed. 1 Inhaler 0 01/05/2018 07/27/2022 Discontinued Hyaline Cast 0 /LPF 4-10 /LPF (A) Protein, Total 6.0 - 8.5 g/dL 6.4 Albumin 3.2 - 5.0 g/dL 3.0 (L) Calcium 8.5 - 10.5 mg/dL 8.4 (L) Bilirubin, Total 0.2 - 1.0 mg/dL 0.3 Alkaline Phosphatase 45 - 117 U/L 73 AST 8 - 34 U/L 19 ALT 13 - 61 U/L 12 (L) Glucose 70 - 100 mg/dL 84 BUN 7 - 26 mg/dL 6 (L) Creatinine 0.51 - 0.95 mg/dL 0.55 Sodium 136 - 145 mmol/L 140 Potassium 3.5 - 5.1 mmol/L 3.5 Chloride 98 - 107 mmol/L 109 (H) CO2 21 - 32 mmol/L 14 (L) Anion Gap 5 - 16 mmol/L 17 (H) eGFR >=60 mL/min/1.73mA? 131 GLUCOSE UA (POCT) Negative mg/dL Negative BILIRUBIN UA (POCT) Negative Negative KETONE UA (POCT) Negative mg/dL 40 (A) SPECIFIC GRAVITY UA (POCT) 1.005 - 1.030 >=1.030 HEMOGLOBIN/BLOOD UA (POCT) Negative Large (A) PH UA (POCT) 4.5 - 8.0 5.5 PROTEIN UA (POCT) Negative mg/dL Trace (A) UROBILINOGEN UA (POCT) Normal E.U./dL 0.2 NITRITE UA (POCT) Negative Negative LEUKOCYTES UA (POCT) Negative Trace (A) COLOR UA (POCT) Yellow CLARITY UA (POCT) Clear Lipase 12 - 60 U/L 92 (H) Lactate 0.4 - 2.0 mmol/L <0.1 (L) EGD performed 07/30/2022 was remarkable for: EGD Findings: LA Grade D (one or more mucosal breaks involving at least 75% of esophageal circumference) esophagitis with no bleeding was found. Several biopsies were obtained with cold forceps for histology in a targeted manner at the gastroesophageal junction. Estimated blood loss: none. A 2 cm hiatal hernia was present. The exam of the stomach was otherwise normal. The examined duodenum was normal. Impression: - LA Grade D reflux esophagitis with no bleeding. - 2 cm hiatal hernia. - Normal examined duodenum. - Several biopsies were obtained at the gastroesophageal junction. No H/o snoring. Some heartburn at night. Objective: Deferred Impression: LA Grade D esophagitis H/O GERD (more content not included)... [facility] 08-02-2022 History of Present illness Narrative Follow Up Zoom Visit There were no vitals filed for this visit. Current Medications: Current Outpatient Medications Medication Sig Dispense Refill levonorgestrel-ethinyl estradiol 0.15 mg-30 mcg (91) per tab, 3 month pack Take 1 tablet by mouth as directed. hydrOXYzine pamoate (VISTARIL) 25 mg capsule Take 1 capsule by mouth twice daily as needed. gabapentin (NEURONTIN) 100 mg capsule Take 1 capsule by mouth daily at bedtime. FLUoxetine (PROZAC) 40 mg capsule Take 1 capsule by mouth once daily. amphetamine-dextroamphetamine XR (ADDERALL XR) 20 mg 24 hr capsule Take 1 capsule by mouth once daily. busPIRone HCl 30 mg tablet Take 1 tablet by mouth twice daily. NURTEC ODT 75 mg disintegrating tablet Take 1 tablet by mouth every 48 hours as needed. sucralfate (CARAFATE) 100 mg/mL suspension TAKE 10 ML (CC) BY MOUTH TWICE DAILY ON AN EMPTY STOMACH 1 HOUR BEFORE MEALS pantoprazole DR (PROTONIX) 40 mg tablet Take 40 mg by mouth once daily. cholecalciferol (VITAMIN D-3) 5,000 unit tab Take 1 tablet by mouth once daily. famotidine (PEPCID) 20 mg tablet Take 1 tablet by mouth twice daily for 14 days. 28 tablet 0 AIMOVIG AUTOINJECTOR 140 mg/mL auto-injector ondansetron orally disintegrating (ZOFRAN ODT) 4 mg disintegrating tablet dissolve 1 tablet ON TONGUE every 4 hours if needed for nausea and vomiting 60 tablet 2 topiramate (TOPAMAX) 50 mg tablet Take 1 tablet by mouth twice daily. 60 tablet 3 No current facility-administered medications for this visit. Follow up regarding: Heartburn and RUQ pain Interval Events: Subjective: Patient seen in [facility] for above symptoms and dehydration Component Latest Ref Rng & Units 07/16/2022 07/22/2022 07/22/2022 07/22/2022 07/22/2022 2:06 AM 2:26 AM 3:32 AM 3:44 AM WBC 3.70 - 11.00 k/uL 5.97 RBC 3.90 - 5.20 m/uL 4.29 Hemoglobin 11.5 - 15.5 g/dL 13.3 Hematocrit 36.0 - 46.0 % 38.1 MCV 80.0 - 100.0 fL 88.8 MCH 26.0 - 34.0 pg 31.0 MCHC 30.5 - 36.0 g/dL 34.9 RDW-CV 11.5 - 15.0 % 12.6 Platelet Count 150 - 400 k/uL 318 MPV 9.0 - 12.7 fL 8.0 (L) NRBC /100 WBC 0.0 Absolute nRBC <0.01 k/uL <0.01 Neut% % 55.0 Abs Neut (ANC) 1.45 - 7.50 k/uL 3.28 Lymph% % 39.0 Abs Lymph 1.00 - 4.00 k/uL 2.39 Dewitt% % 5.0 Abs Dewitt <0.87 k/uL 0.30 Eosin% % 0.0 Abs Eosin <0.46 k/uL 0.00 Baso% % 0.0 Abs Baso <0.11 k/uL 0.00 Realym% % 1.0 Platelet Estimate Adequate Red Cell Morph Reviewed: unremarkable DTYPE Manual Color Yellow Yellow Clarity Clear Hazy (A) Glucose, Urine Negative Negative Bilirubin, Urine Negative Negative Ketones, Urine Negative 3+ (A) Specific [place], Ur 1.005 - 1.030 1.030 Hemoglobin/Blood,Ur Negative Trace (A) pH, Urine 5.0 - 8.0 6.0 Protein, Urine Negative 1+ (A) Urobilinogen Negative Negative Nitrites Negative Negative Leukest Negative Negative WBC, Urine 0-5 /HPF 6-10 /HPF (A) RBC, Urine 0-3 /HPF 3-5 /HPF (A) Bacteria None Seen /HPF Few (A) Epithelial Cells /HPF Few Hyaline Cast 0 /LPF 4-10 /LPF (A) Protein, Total 6.0 - 8.5 g/dL 6.4 Albumin 3.2 - 5.0 g/dL 3.0 (L) Calcium 8.5 - 10.5 mg/dL 8.4 (L) Bilirubin, Total 0.2 - 1.0 mg/dL 0.3 Alkaline Phosphatase 45 - 117 U/L 73 AST 8 - 34 U/L 19 ALT 13 - 61 U/L 12 (L) Glucose 70 - 100 mg/dL 84 BUN 7 - 26 mg/dL 6 (L) Creatinine 0.51 - 0.95 mg/dL 0.55 Sodium 136 - 145 mmol/L 140 Potassium 3.5 - 5.1 mmol/L 3.5 Chloride 98 - 107 mmol/L 109 (H) CO2 21 - 32 mmol/L 14 (L) Anion Gap 5 - 16 mmol/L 17 (H) eGFR >=60 mL/min/1.73m 131 GLUCOSE UA (POCT) Negative mg/dL Negative BILIRUBIN UA (POCT) Negative Negative KETONE UA (POCT) Negative mg/dL 40 (A) SPECIFIC GRAVITY UA (POCT) 1.005 - 1.030 >=1.030 HEMOGLOBIN/BLOOD UA (POCT) Negative Large (A) PH UA (POCT) 4.5 - 8.0 5.5 PROTEIN UA (POCT) Negative mg/dL Trace (A) UROBILINOGEN UA (POCT) Normal E.U./dL 0.2 NITRITE UA (POCT) Negative Negative LEUKOCYTES UA (POCT) Negative Trace (A) COLOR UA (POCT) Yellow CLARITY UA (POCT) Clear Lipase 12 - 60 U/L 92 (H) Lactate 0.4 - 2.0 mmol/L <0.1 (L) EGD performed 07/30/2022 was remarkable for: EGD Findings: LA Grade D (one or more mucosal breaks involving at least 75% of esophageal circumference) esophagitis with no bleeding was found. Several biopsies were obtained with cold forceps for histology in a targeted manner at the gastroesophageal junction. Estimated blood loss: none. A 2 cm hiatal hernia was present. The exam of the stomach was otherwise normal. The examined duodenum was normal. Impression: - LA Grade D reflux esophagitis with no bleeding. - 2 cm hiatal hernia. - Normal examined duodenum. - Several biopsies were obtained at the gastroesophageal junction. No H/o snoring. Some heartburn at night. Objective: Deferred Impression: LA Grade D esophagitis H/O GERD with 2 cm hiatal hernia Plan: Increase Protonix to 40 mg by mouth twice daily Barium swallow to be performed Continue with Carafate 10 ml four times daily 1/2 before meals and at bedtime FU EGD in [address] Padilla Patient's physician is ross [place], [place] Visit length 18 minutes Greg Robles MD documented in this encounter [facility] 07-30-2022 History and physical note UPDATED HISTORY AND PHYSICAL EXAMINATION SERVICE DATE: 07/30/2022 SERVICE TIME: 9:21 AM SERVICE: Gastroenterology PHYSICAL EXAM MUST BE COMPLETED ON ADMISSION The History and Physical (completed in the past 30 days) has been reviewed and the patient has been examined. The contents accurately reflect the patient's condition with the following additions or revisions since the H&P was completed. This is a 22 y/o female that presents for EGD. She has been having abdominal pain. She has a PMH significant for Migraines, GERD, ADHD, and anxiety. She denies ABD pain today. No complaints at this time. Patient denies any changes to health since last examination. Patient DENIES CHEST PAIN, PALPITATIONS, FATIGUE, DIZZINESS Shortness of breath, COUGHING, WHEEZING ABDOMINAL PAIN, N/V/D Medication reconciliation list reviewed in [facility]. Past medical history, past surgical history, social history and family history reviewed and updated in [facility]. ALLERGIES Allergies: Zpak [Azithromycin] Diarrhea Comment:Diarrhea & stomach pain SEE [facility] FOR VITALS BP 113/56 Pulse 66 Temp 36.3 C (97.3 F) (Tympanic) Resp 16 Ht 167.6 cm (5' 6 ) LMP (LMP Unknown) SpO2 100% BMI 35.83 kg/m Examination indicates no changes. On examination today: Lungs: Clear to auscultation bilaterally. Heart: RRR, Normal S1/S2, No murmurs, rubs, gallops or thrills appreciated. Abdomen: BS+ in all quadrants, abdomen is soft, non tender, and without guarding. Assessment: 1.Gastroesophageal reflux disease, unspecified whether esophagitis present [K21.9] Plan: EGD This H&P can be found in the Electronic Medical Record dated 07/27/2022 completed by Debbie Dickson PA-C SIGNATURE: Indy Kelly PA-C PATIENT NAME: Aaliyah Maldonado DATE: 07/30/2022 TIME: 9:21 AM documented in this encounter [facility] 07-27-2022 Instructions Debbie Dickson PA-C - 07/27/2022 3:07 PM EST Images from the original note were not included. PATIENT PREOPERATIVE INSTRUCTIONS Emmanuelle Padilla DO has scheduled you for your procedure at this surgery center: [facility]: [phone] -- [place] [phone]. Please read below carefully for your personalized instructions. Dietary Restrictions: - No solid food after midnight. - You may have 12 ounces of clear liquids (water, clear juices such as apple juice or gatorade, carbonated beverages, clear tea, black coffee, jello) until 2 hours before scheduled arrival at facility. Medications: Unless instructed differently below, stay on all of your medications until your surgery. Approved medications to take the morning of surgery with a sip of water: Topamax, Nurtec if needed, Jolessa, Zofran if needed, Pantoprazole, Prozac, Pepcid, Vistaril, Buspar If you start any new medications after today's visit, please contact the surgeon's office. Blood Thinning Medications: Please follow Dr. Padilla's instructions regarding which [id number] supplements and blood thinners you need to avoid prior to your upcoming procedure - Stop NSAIDS (Ibuprofen, Advil, Aleve, Motrin, Celebrex, Mobic, etc.) 7 days before surgery, as directed by your surgeon. - Stop Aspirin 7 days before surgery, as directed by your surgeon. - Stop Vitamin E, ALL multi-vitamins, herbals and dietary supplements 14 days before surgery. - You may take Tylenol (Acetaminophen) or any of your pain medications that do not contain aspirin or NSAIDS as needed. Important Reminders: - If you are prescribed inhalers for breathing, continue using them. - Candy, mints, and tobacco products are NOT permitted the morning of surgery. - Hearing aids, dentures and glasses may be worn the morning of surgery. - NO jewelry, body piercings, makeup, hairpins or contacts are to be worn the day of surgery. If you develop symptoms such as a fever, cold, or flu, or have other changes to your health within TWO DAYS of scheduled surgery or the morning of surgery, please contact the surgery center above. Personal Belongings: -Please have photo ID and insurance cards. -If you do not have a copy of advance directives on file with us, please bring a copy with you on the day of surgery. - Leave ALL valuables and money at home or with family members. For Outpatient Procedures: - YOU MUST HAVE A RESPONSIBLE FIELD HORTICULTURAL SPECIALTY GROWER TAKE YOU HOME. A WORKERS' COMPENSATION CLAIMS SUPERVISOR OR SECURITY ALARM TECHNICIAN CANNOT BE MADE A RESPONSIBLE FIELD HORTICULTURAL SPECIALTY GROWER. - We recommend that a responsible person stays with you overnight to take care of you. - You cannot stay in a hotel alone after outpatient surgery. You will not be permitted to have your surgery, if you do not have someone to take care of you. Arrival Time for Surgery: - The Surgery Center or hospital where you are having surgery will call the afternoon before surgery (or Tuesday for Tuesday surgery) with a scheduled arrival time. - If you have not heard by 4 pm, please contact the surgery center above. Please be aware that emergency situations arise, which may delay or change your surgical time. If this happens, we will notify you as soon as possible and regret any inconvenience. If you already have an Advance Directive, please fax a copy to [phone] or email to for it to be added to your chart. If you do not have an Advance Directive, you can find the appropriate form and more information at [email or web address]. We recommend that you complete the Advance Directive form found on the website and bring it with you the day of your surgery. It can be witnessed and scanned into your chart that day. Debbie Dickson PA-C documented in this encounter [facility] 07-27-2022 History and physical note PREANESTHESIA CONSULT CLINIC TELEHEALTH VISIT Patient has been identified by name and date of : Yes This is a virtual visit using ExSafe video visit. It require patient-provider interaction for the medical decision making as documented below. Reason for contact: PACC visit Accompanied by: her mother Surgeon: Emmanuelle Padilla DO Type of surgery: EGD Patient scheduled for surgery on 07/30/2022 . Surgery Location: [facility] Diagnosis: Preop examination (primary encounter diagnosis) Ht 5' 6.5 [patient reported[ (1.69m) Wt 222 lb (100.7kg) BMI 35.30 kg/(m^2). H&P completed: 07/22/2022 ED visit Andreina Terrazas PA-C Medical history BMI 35 Migraines - on Topamax and Aimovig for prevention. Takes Nurtec prn GERD and abdominal pain - Scheduled for above procedure. On Pepcid, Protonix, Sucralfate and takes zofran prn ADHD - on Adderall Anxiety/depression - on Buspar and Prozac. Denies SI/HI. Takes Vistaril prn. Also takes Gabapentin at hs for sleep History of URI - symptoms started prior to and resolved 07/16/2022. Had sore throat, fever and dry cough. Multiple COVID-19 tests were negative. She is well and back to baseline. Functional class METS: Climb a flight of stairs or walk up a hill (5.50 METs) Patient denies any chest pain or undue shortness of breath with the above physical activity. Social History Tobacco Use Smoking status: Never Smokeless tobacco: Never Vaping Use Vaping Use: Never used Substance Use Topics Alcohol use: No Drug use: No levonorgestrel-ethinyl estradiol (JOLESSA) 0.15 mg-30 mcg (91) per tab, 3 month pack Take 1 tablet by mouth as directed. hydrOXYzine pamoate (VISTARIL) 25 mg capsule Take 1 capsule by mouth twice daily as needed. gabapentin (NEURONTIN) 100 mg capsule Take 1 capsule by mouth daily at bedtime. FLUoxetine (PROZAC) 40 mg capsule Take 1 capsule by mouth once daily. amphetamine-dextroamphetamine XR (ADDERALL XR) 20 mg 24 hr capsule Take 1 capsule by mouth once daily. busPIRone HCl 30 mg tablet Take 1 tablet by mouth twice daily. NURTEC ODT 75 mg disintegrating tablet Take 1 tablet by mouth every 48 hours as needed. sucralfate (CARAFATE) 100 mg/mL suspension TAKE 10 ML (CC) BY MOUTH TWICE DAILY ON AN EMPTY STOMACH 1 HOUR BEFORE MEALS pantoprazole DR (PROTONIX) 40 mg tablet Take 40 mg by mouth once daily. famotidine (PEPCID) 20 mg tablet Take 1 tablet by mouth twice daily for 14 days. AIMOVIG AUTOINJECTOR 140 mg/mL auto-injector ondansetron orally disintegrating (ZOFRAN ODT) 4 mg disintegrating tablet dissolve 1 tablet ON TONGUE every 4 hours if needed for nausea and vomiting topiramate (TOPAMAX) 50 mg tablet Take 1 tablet by mouth twice daily. cholecalciferol (VITAMIN D-3) 5,000 unit tab Take 1 tablet by mouth once daily. ALLERGIES Allergen Reactions Zpak [Azithromycin] Diarrhea Diarrhea & stomach pain COVID VACCINATION STATUS: Fully vaccinated PHYSICAL EXAMINATION: GENERAL: alert and appropriate, in no distress, well-hydrated, well nourished, and happy, smiling, interactive SKIN: no rash noted HEAD: normocephalic, no abnormality or lesion noted EYES: no injection NOSE: external nose normal without rhinorrhea NECK: full ROM RESPIRATORY: breathing non-labored and no grunting/flaring/retractions CHEST: equal chest rise with normal respiratory effort HEART: Patient confirmed radial pulse and counted aloud with regular rhythm. HR 80 BPM. No cyanosis ABDOMEN: soft and non-tender NEUROLOGIC: no cerebral deficits noted Laboratory and Testing: Lab Value Units Date High Low HB 13.3 g/dL 07/22/2022 15.5 11.5 HCT 38.1 % 07/22/2022 46.0 36.0 WBC 5.97 k/uL 07/22/2022 11.00 3.70 PLT 318 k/uL 07/22/2022 400 150 NA 140 mmol/L 07/22/2022 145 136 K 3.5 mmol/L 07/22/2022 5.1 3.5 GLUC 84 mg/dL 07/22/2022 100 70 BUN 6 mg/dL 07/22/2022 26 7 CREAT 0.55 mg/dL 07/22/2022 0.95 0.51 PTSEC No results within date range. INR No results within date range. APTT No results within date range. ALT 12 U/L 07/22/2022 61 13 AST 19 U/L 07/22/2022 34 8 TBILI 0.3 mg/dL 07/22/2022 1.0 0.2 TSH No results within date range. Hemoglobin A1C (%) Date Value 02/11/2014 5.0 EKG READIN03/09/2021 EKG Normal sinus rhythm Nonspecific T wave abnormality Abnormal ECG ANESTHESIOLOGY REVIEW: MOUTH OPENING/TMJ : full jaw ROM MICROGNATHIA/OVERBITE: no MP SCORE: MP 4 UPPER LIP BITE TEST: Unable to perform DENTITION: Intact THYROMENTAL DIST: WNL SHORT NECK: No NECK FLEX: full ROM NECK EXTENSION: full ROM INTUBATION HISTORY: history of general anesthesia without difficulty ADVERSE ANESTHESIA EVENT: no history of adverse event ANESTHETIC OPTIONS: Final anesthesia management options will be discussed on day of surgery. PAIN MANAGEMENT OPTIONS: Final pain management plan will be discussed on the day of surgery. Control Drug Interaction with Sugammadex ([place] ): Information for Female Surgery Patients handout given to patient. OPTIMIZATION STATUS: Patient optimized for OR, pending DOS review. ASA Class: 3 Interaction noted between Topamax and Jolessa including decreased efficacy of oral contraceptives. Discussed with patient. Encouraged patient to discuss this with her prescribing physician. She reports she is aware. Debbie Dickson PA-C July 27, 2022 2:50 PM documented in this encounter [facility] 07-23-[address] Robles Pt would like EGD order so she can get that done before follow up with you. Also she mentioned a test where she has to swallow barium . Pended orders. Please advise and order if appropriate. Susan Vitale LPN documented in this encounter [facility] 07-23-2022 Miscellaneous Notes Fax received with CT scan results from 07/16/2022. Scanned into chart documented in this encounter [facility] 07-21-2022 Note HNO ID: [id number] Author: Greg Robles MD Service: ? Author Type: Physician Type: Progress Notes Filed: 07/21/2022 2:58 PM Note Text: NAME: Aaliyah Maldonado New Patient Zoom Visit AGE: [age] year old Referred by: SELF Referred for: an opinion regarding RUQ abdominal pain.a GENERAL ROS: Colon polyps: No Colon cancer: No Other cancer: No Radiation / Chemotherapy: No Crohn's disease / Ulcerative colitis: No High cholesterol or triglycerides: No Ulcers: No Gallstones: No Hepatitis / jaundice: No Heart Disease: No Lung Disease: No Liver problems:No Thyroid disease: No Kidney stones: No Pancreatitis: No Diabetes: No Arthritis: No Rheumatic fever:No Gastrointestinal bleeding: Yes Depression or other mental illness:Yes Other personal illness:No FAMILY HISTORY: Liver problems: No Colitis: No Colon cancer:No Other cancers: Yes uncle and grandfather PAST SURGICAL HISTORY Procedure Laterality Date PAST SURGICAL HISTORY OF 2005 Bilateral hip surgery PAST SURGICAL HISTORY OF 2007 Bilateral hip surgery plates removed TONSILLECTOMY AND ADENOIDECTOMY GI SPECIFIC ROS: Difficulty swallowing / foods sticking in throat:Yes Heartburn:Yes Hoarseness: No Chronic cough: No Regurgitation: No Chest pain: No Filling up quickly at meals: No Loss of appetite:Yes Nausea: Yes Vomiting: Yes Abdominal pain:Yes Recent change in bowel movements: Yes Bloody or black, bowel movements: No Constipation: No Diarrhea: Yes Loss of control of bowel movements: No Night sweats, fever, chills: Yes chills and fever Thought or memory problems: No Fluid in abdomen (ascites):No Prominent leg swelling:No Vomiting blood: No Recent change in weight: No CURRENT MEDICATIONS: Current Outpatient Medications Medication Sig AIMOVIG AUTOINJECTOR 140 mg/mL auto-injector hydrOXYzine pamoate (VISTARIL) 25 mg capsule levonorgestrel-ethinyl estradiol 0.15 mg-30 mcg (91) per tab, 3 month pack gabapentin (NEURONTIN) 100 mg capsule amphetamine-dextroamphetamine XR (ADDERALL XR) 20 mg 24 hr capsule busPIRone HCl 30 mg tablet ondansetron orally disintegrating (ZOFRAN ODT) 4 mg disintegrating tablet dissolve 1 tablet ON TONGUE every 4 hours if needed for nausea and vomiting FLUoxetine (PROZAC) 20 mg capsule Take the 20 mg cap along with the 10 mg cap to total 30 mg daily, by mouth. FLUoxetine (PROZAC) 10 mg capsule Take 10 mg cap along with the 20 mg cap total 30 mg daily by mouth fluticasone (FLONASE) 50 mcg/actuation nasal spray Use 1 Anton in each nostril once daily. ibuprofen (MOTRIN) 600 mg tablet Take 600 mg by mouth four times daily as needed. SUMAtriptan (IMITREX) 100 mg tablet Take 1 tablet by mouth as needed for Migraine Headache (see administration instructions). QUEtiapine XR (SEROQUEL XR) 50 mg Tb24 Take 2 tablets by mouth daily at bedtime. topiramate (TOPAMAX) 50 mg tablet Take 1 tablet by mouth twice daily. albuterol HFA (PROVENTIL HFA, VENTOLIN HFA) 90 mcg/actuation inhaler Inhale 2 Puffs as instructed every 4 hours as needed. No current facility-administered medications for this visit. ALLERGIES: Zpak [Azithromycin] PERSONAL HABITS: Tobacco: No Alcohol: No Coffee: No The above documentation completed by Selena Silva MA I agree with the Chief Complaint, ROS, and Past Histories independently gathered by the clinical air support control officer and the remaining scribed note accurately describes my personal service to the patient. Greg Robles MD --------- PRESENTING COMPLAINT AND HISTORY: No chief complaint on file. History: Patient presents with a history of intermittent heartburn for several months which appears to be food dependent. She was in her usual state of good health until July 15 when she developed right upper quadrant pain which has been persistent until current time. When the pain first started she did have fever and some vomiting. Temp was 100.4. Currently there is no fever. Had vomiting in July 15, and . Pain has awakened her a night. She went to an ER in [facility] on 07/16/2022, [place] CT abdomen /pelvis was performed which was remarkable for small hiatal hernia. No labs. Urine sample was attempted but could not be evaluated She takes Ibuprofen daily at least 2 per day longer than one year. Patient with dark urine since 07/15/2022. No scleral icterus per her mother. Zofran helped the nausea. She has only had 3.5 ounces today GE reflux found per UGI performed in 10/2015. RUQ ultrasound performed on 07/19/2022 which was normal. Patient with diarrhea daily Urinalysis from 07/16/2022 was remarkable for: Component Ref Range AND Units 5 d ago 6 yr ago GLUCOSE UA (POCT) Negative mg/dL Negative Negative R BILIRUBIN UA (POCT) Negative Negative Negative R KETONE UA (POCT) Negative mg/dL 40 Abnormal Negative R SPECIFIC GRAVITY U (more content not included)... [facility] 07-21-2022 Miscellaneous Notes Scanned outside medical records into [facility]. Susan Vitale LPN documented in this encounter [facility] 07-21-2022 History of Present illness Narrative NAME: Aaliyah Maldonado New Patient Zoom Visit AGE: [age] year old Referred by: SELF Referred for: an opinion regarding RUQ abdominal pain.a GENERAL ROS: Colon polyps: No Colon cancer: No Other cancer: No Radiation / Chemotherapy: No Crohn's disease / Ulcerative colitis: No High cholesterol or triglycerides: No Ulcers: No Gallstones: No Hepatitis / jaundice: No Heart Disease: No Lung Disease: No Liver problems:No Thyroid disease: No Kidney stones: No Pancreatitis: No Diabetes: No Arthritis: No Rheumatic fever:No Gastrointestinal bleeding: Yes Depression or other mental illness:Yes Other personal illness:No FAMILY HISTORY: Liver problems: No Colitis: No Colon cancer:No Other cancers: Yes uncle and grandfather PAST SURGICAL HISTORY Procedure Laterality Date PAST SURGICAL HISTORY OF 2005 Bilateral hip surgery PAST SURGICAL HISTORY OF 2006 Bilateral hip surgery plates removed TONSILLECTOMY & ADENOIDECTOMY <AGE 10 GI SPECIFIC ROS: Difficulty swallowing / foods sticking in throat:Yes Heartburn:Yes Hoarseness: No Chronic cough: No Regurgitation: No Chest pain: No Filling up quickly at meals: No Loss of appetite:Yes Nausea: Yes Vomiting: Yes Abdominal pain:Yes Recent change in bowel movements: Yes Bloody or black, bowel movements: No Constipation: No Diarrhea: Yes Loss of control of bowel movements: No Night sweats, fever, chills: Yes chills and fever Thought or memory problems: No Fluid in abdomen (ascites):No Prominent leg swelling:No Vomiting blood: No Recent change in weight: No CURRENT MEDICATIONS: Current Outpatient Medications Medication Sig AIMOVIG AUTOINJECTOR 140 mg/mL auto-injector hydrOXYzine pamoate (VISTARIL) 25 mg capsule levonorgestrel-ethinyl estradiol 0.15 mg-30 mcg (91) per tab, 3 month pack gabapentin (NEURONTIN) 100 mg capsule amphetamine-dextroamphetamine XR (ADDERALL XR) 20 mg 24 hr capsule busPIRone HCl 30 mg tablet ondansetron orally disintegrating (ZOFRAN ODT) 4 mg disintegrating tablet dissolve 1 tablet ON TONGUE every 4 hours if needed for nausea and vomiting FLUoxetine (PROZAC) 20 mg capsule Take the 20 mg cap along with the 10 mg cap to total 30 mg daily, by mouth. FLUoxetine (PROZAC) 10 mg capsule Take 10 mg cap along with the 20 mg cap total 30 mg daily by mouth fluticasone (FLONASE) 50 mcg/actuation nasal spray Use 1 Anton in each nostril once daily. ibuprofen (MOTRIN) 600 mg tablet Take 600 mg by mouth four times daily as needed. SUMAtriptan (IMITREX) 100 mg tablet Take 1 tablet by mouth as needed for Migraine Headache (see administration instructions). QUEtiapine XR (SEROQUEL XR) 50 mg Tb24 Take 2 tablets by mouth daily at bedtime. topiramate (TOPAMAX) 50 mg tablet Take 1 tablet by mouth twice daily. albuterol HFA (PROVENTIL HFA, VENTOLIN HFA) 90 mcg/actuation inhaler Inhale 2 Puffs as instructed every 4 hours as needed. No current facility-administered medications for this visit. ALLERGIES: Zpak [Azithromycin] PERSONAL HABITS: Tobacco: No Alcohol: No Coffee: No The above documentation completed by Selena Silva MA I agree with the Chief Complaint, ROS, and Past Histories independently gathered by the clinical air support control officer and the remaining scribed note accurately describes my personal service to the patient. Greg Robles MD PRESENTING COMPLAINT & HISTORY: No chief complaint on file. History: Patient presents with a history of intermittent heartburn for several months which appears to be food dependent. She was in her usual state of good health until July 15 when she developed right upper quadrant pain which has been persistent until current time. When the pain first started she did have fever and some vomiting. Temp was 100.4. Currently there is no fever. Had vomiting in July 15, and . Pain has awakened her a night. She went to an ER in [place] on 07/16/2022, [place]. CT abdomen /pelvis was performed which was remarkable for small hiatal hernia. No labs. Urine sample was attempted but could not be evaluated She takes Ibuprofen daily at least 2 per day longer than one year. Patient with dark urine since 07/15/2022. No scleral icterus per her mother. Zofran helped the nausea. She has only had 3.5 ounces today GE reflux found per UGI performed in 10/2015. RUQ ultrasound performed on 07/19/2022 which was normal. Patient with diarrhea daily Urinalysis from 07/16/2022 was remarkable for: Component Ref Range & Units 5 d ago 6 yr ago GLUCOSE UA (POCT) Negative mg/dL Negative Negative R BILIRUBIN UA (POCT) Negative Negative Negative R KETONE UA (POCT) Negative mg/dL 40 Abnormal Negative R SPECIFIC GRAVITY UA (POCT) 1.005 - 1.030 >=1.030 1.025 HEMOGLOBIN/BLOOD UA (POCT) Negative Large Abnormal Negative R PH UA (POCT) 4.5 - 8.0 5.5 6.5 R PROTEIN UA (POCT) Negative mg/dL Trace Abnormal Negative R UROBILINOGEN UA (POCT) Normal E.U./dL 0.2 0.2 R NITRITE UA (POCT) Negative Negative Negative R LEUKOCYTES UA (POCT) Negative Trace Abnormal Negative R COLOR UA (POCT) Yellow Yellow CLARITY UA (POCT) Clear Slightly Cloudy Resulting Agency [facility] PHYSICAL EXAMINATION: General Appearance: Cooperative, in no acute distress, alert. Eyes: Conjunctivas/corneas clear. Oropharynx: Lips, tongue, and oral mucosa normal. Thyroid: No goiter. Lungs: Lungs clear audibly Abdomen: Soft with tender RUQ to patient palpatient Extremities: Normal, with no deformities or edema. IMPRESSION: R/O dehydration Refractory migraine headaches R/O cholelithiasis and cholecystitis H/O GERD with small hiatal hernia per UGI performed in10/2015 R/O PUD induced by NSAIDS Hypokalemia PLAN: Refer to go to ER Patient needs IV hydration and EGD. Patient desires to go to [facility] Eventual referral to [facility] in one week Visit length-25 minutes STAFF PHYSICIAN Greg Robles MD documented in this encounter [facility] 07-18-2022 Note . MICRO - Microbiology PROCEDURE: Urine Culture [*1] SOURCE: Urine, Clean Catch BODY SITE: COLLECTED DATE/TIME: 07/16/2022 20:41 EST RECEIVED DATE/TIME: 07/17/2022 14:09 EST START DATE/TIME: 07/17/2022 14:09 EST FREE TEXT SOURCE: FINAL REPORTS Final Report [] Verified Date/Time/Personnel: 07/18/2022 14:26 EST >100,000 cfu/ml Mixed growth consistent with normal urogenital tino. Performing Locations *1: This test was performed at: [facility], [address] [place] [address], [id number] , [facility] ([place]) 07-17-2022 Evaluation + Plan note Future Scheduled TestsMRI Brain w/o Contrast 07/17/22 [facility] 07-17-2022 Hospital Discharge instructions Patient Education 07/16/2022 22:51:43 Vomiting (Adult) Vomiting (Adult) Vomiting is a common symptom that may be due to different causes. These include gastroenteritis ( stomach flu ), food poisoning and gastritis. There are other more serious causes of vomiting which may be hard to diagnose early in the illness. Therefore, it is important to watch for the warning signs listed below. The main danger from repeated vomiting is dehydration. This is due to excess loss of water and minerals from the body. When this occurs, your body fluids must be replaced. Home care If symptoms are severe, rest at home for the next 24 hours. Because your symptoms may be from an infection, wash your hands often and well. If soap and water are not available, use alcohol-based lead sales consultant to keep from spreading the infection to others. Wash your hands for at least 20 seconds. Humming the happy birthday song twice while you wash is an easy way to make sure you've washed for 20 seconds. Wash your hands after using the toilet, before and after preparing food, before eating food, after changing a diaper, cleaning a wound, caring for a sick person, and blowing your nose, coughing, or sneezing. You should also wash your hands after caring for someone who is sick, touching pet food, or treats, and touching an animal, or animal waste. You may use acetaminophen or NSAID medicines like ibuprofen or naproxen to control fever, unless another medicine was prescribed. If you have chronic liver or kidney disease or ever had a stomach ulcer or gastrointestinal bleeding, talk with your doctor before using these medicines. Aspirin should never be used in anyone under 18 years of age who is ill with a fever. It may cause severe liver damage. Don't use NSAID medicines if you are already taking one for another condition (like arthritis) or are on aspirin (such as for heart disease, or after a stroke) Don't use tobacco and or drink alcohol, which may worsen your symptoms. If medicines for vomiting were prescribed, take as directed. Once vomiting stops, then follow these guidelines: During the first 12 to 24 hours follow the diet below: Fruit juices. Apple, grape juice, clear fruit drinks, and electrolyte replacement drinks. Beverages. Soft drinks without caffeine; mineral water (plain or flavored), decaffeinated tea and coffee. Soups. Clear broth and bouillon Desserts. Plain gelatin, ice pops, and fruit juice bars. As you feel better, you may add 6 to 8 ounces of yogurt per day. During the next 24 hours you may add the following to the above: Hot cereal, plain toast, bread, rolls, crackers Plain noodles, rice, mashed potatoes, chicken noodle or rice soup Unsweetened canned fruit such as applesauce, bananas (avoid pineapple and citrus) Limit caffeine and chocolate. No spices or seasonings except salt. During the next 24 hours: Gradually resume a normal diet, as you feel better and your symptoms lessen. Follow-up care Follow up with your healthcare provider, or as advised. When to seek medical advice Call your healthcare provider right away if any of these occur: Constant right-sided lower belly pain or increasing general belly pain Continued vomiting (unable to keep liquids down) for 24 hours Vomiting blood or coffee grounds Swollen belly Frequent diarrhea (more than 5 times a day); blood (red or black color) or mucus in diarrhea Reduced urine output or extreme thirst Weakness, dizziness or fainting Unusually drowsy or confused Fever of 100.4 F (38 C) oral or higher, or as directed Yellow color of the eyes or skin [id number] [employer]. [address] [place] [address], [place] [address]. All rights reserved. This information is not intended as a substitute for professional medical care. Always follow your healthcare professional's instructions. Follow Up Care 07/16/2022 20:21:07 With:ROSS FISHER MD, Surgery Address: [address] [place], [place] [address]- When:2-4 days [facility] 07-16-2022 Note Discharge Instructions Thank you for allowing [facility] to assist you with your healthcare needs. The following is important discharge information regarding your hospital visit. Diagnosis from Today's Visit Pain passing urine What to Do Next Instructions from Your Care Team No qualifying data available. Post Acute Orders No qualifying data available. You Need to Schedule the Following Appointments Follow Up with ROSS FISHER MD, Surgery When Within 2-4 days Where: [address] [place] [id number]- Allergies azithromycin Medications Please ask your primary doctor or pharmacist before taking any other medication not listed, including over the counter drugs, herbal medications, vitamins and or supplements as they may interact with your home medications. What How Much When Instructions Last Dose New dicyclomine (dicyclomine 10 mg oral capsule) 1 cap by mouth Four (4) times a day Duration: 5 Days Printed Prescription New ondansetron (ondansetron 4 mg oral tablet, disintegrating) 1 tab(s) by mouth Every 8 hours Duration: 3 Days Printed Prescription Unchanged albuterol (albuterol MDI (90 mcg/ inh) CFC free inhalation aerosol) 1 puff(s) by inhalation Four (4) times a day as needed for as needed for wheezing Unchanged amphetamine-dextroamphetamine (amphetamine-dextroamphetamine 20 mg oral capsule, extended release) 1 cap by mouth Once a day (in the morning) Unchanged benzonatate (benzonatate 100 mg oral capsule) 1 cap by mouth Three (3) times a day as needed for as needed for cough Duration: 7 Days Unchanged busPIRone (busPIRone 15 mg oral tablet) 1 tab(s) by mouth Three (3) times a day Unchanged clonazePAM (clonazePAM 0.5 mg oral tablet) 1 tab(s) by mouth Three (3) times a day Unchanged cyclobenzaprine (cyclobenzaprine 7.5 mg oral tablet) 1 tab(s) by mouth Three (3) times a day as needed for as needed for spasm Unchanged doxycycline (doxycycline hyclate 100 mg oral capsule) 1 cap by mouth Two (2) times a day Duration: 10 Days Unchanged FLUoxetine (FLUoxetine 10 mg oral capsule) 1 cap by mouth Once a day Unchanged gabapentin (gabapentin 100 mg oral capsule) 2 cap by mouth Two (2) times a day Unchanged methylPREDNISolone (methylPREDNISolone Dosepak 4 mg tablet) 1 Packet(s) by mouth Once a day Duration: 6 Days as directed on package labeling Unchanged topiramate (Topamax 50 mg oral tablet) 1 tab(s) by mouth Two (2) times a day Please take this list to your next doctor s visit. Bring all medications you take, including over the counter medications, herbals and other supplements with you to your doctor s visit. Patients and families are reminded to discard old lists and to update any records with all medication providers or retail pharmacies. Education Materials Vomiting (Adult) Vomiting is a common symptom that may be due to different causes. These include gastroenteritis ( stomach flu ), food poisoning and gastritis. There are other more serious causes of vomiting which may be hard to diagnose early in the illness. Therefore, it is important to watch for the warning signs listed below. The main danger from repeated vomiting is dehydration. This is due to excess loss of water and minerals from the body. When this occurs, your body fluids must be replaced. Home care If symptoms are severe, rest at home for the next 24 hours. Because your symptoms may be from an infection, wash your hands often and well. If soap and water are not available, use alcohol-based lead sales consultant to keep from spreading the infection to others. Wash your hands for at least 20 seconds. Humming the happy birthday song twice while you wash is an easy way to make sure you've washed for 20 seconds. Wash your hands after using the toilet, before and after preparing food, before eating food, after changing a diaper, cleaning a wound, caring for a sick person, and blowing your nose, coughing, or sneezing. You should also wash your hands after caring for someone who is sick, touching pet food, or treats, and touching an animal, or animal waste. You may use acetaminophen or NSAID medicines like ibuprofen or naproxen to control fever, unless another medicine was prescribed. If you have chronic liver or kidney disease or ever had a stomach ulcer or gastrointestinal bleeding, talk with your doctor before using these medicines. Aspirin should never be used in anyone under 18 years of age who is ill with a fever. It may cause severe liver damage. Don't use NSAID medicines if you are already taking one for another condition (like arthritis) or are on aspirin (such as for heart disease, or after a stroke) Don't use tobacco and or drink alcohol, which may worsen your symptoms. If medicines for vomiting were prescribed, take as directed. Once vomiting stops, then follow these guidelines: During the first 12 to 24 hours follow the diet below: Fruit juices. Apple, grape juice, clear fruit drinks, and electrolyte replacement drinks. Beverages. Soft drinks without caffeine; mineral water (plain or flavored), decaffeinated tea and coffee. Soups. Clear broth and bouillon Desserts. Plain gelatin, ice pops, and fruit juice bars. As you feel better, you may add 6 to 8 ounces of yogurt per day. During the next 24 hours you may add the following to the above: Hot cereal, plain toast, bread, rolls, crackers Plain noodles, rice, mashed potatoes, chicken noodle or rice soup Unsweetened canned fruit such as applesauce, bananas (avoid pineapple and citrus) Limit caffeine and chocolate. No spices or seasonings except salt. During the next 24 hours: Gradually resume a normal diet, as you feel better and your symptoms lessen. Follow-up care Follow up with your healthcare provider, or as advised. When to seek medical advice Call your healthcare provider right away if any of these occur: Constant right-sided lower belly pain or increasing general belly pain Continued vomiting (unable to keep liquids down) for 24 hours Vomiting blood or coffee grounds Swollen belly Frequent diarrhea (more than 5 times a day); blood (red or black color) or mucus in diarrhea Reduced urine output or extreme thirst Weakness, dizziness or fainting Unusually drowsy or confused Fever of 100.4 F (38 C) oral or higher, or as directed Yellow color of the eyes or skin [id number] [employer]. [address] [place] [address]. All rights reserved. This information is not intended as a substitute for professional medical care. Always follow your healthcare professional's instructions. Additional Information VACCINATE! IT SAVES LIVES! Members of the community who have not yet received the COVID-19 vaccine and would like to receive it can visit one of [facility] vaccine clinics. There are many vaccine clinic locations within the [facility]. For locations and available times, please visit [email or web address]. It is important to note that some COVID mobile vaccine clinics are held outdoors and may be canceled in rainy or stormy conditions. To learn more about pediatric vaccinations (ages 5-11), we invite you to visit the [employer] webpage. [email or web address] To learn more about the COVID-19 vaccine, we invite you to visit the [facility] website for a list of frequently asked questions. [email or web address] [facility] Mobile Digital Patient Portal Access Instructions: Stay connected with your healthcare team and access your personal medical information anytime with the [facility] Patient Portal. If you would like a full copy of your medical records please contact the [facility] Medical Records Department Tuesday through Tuesday between 8a.m. and 4:30p.m. Please follow the directions below to access the portal: 1.Access the email account you provided upon registration to the [facility].2.Look for an invitation email from [facility].3.Open the email and access the invitation link: Accept Invitation to [facility]4.Fill in the required julian to create your account. Sign into [email or web address] with your username and password that you created in the above steps to stay up to date. You can then view a summary of results, a summary of your visits, and the ability to download your summaries to your computer or send the information securely to a physician. Remember that your healthcare information is confidential, so carefully consider who you will allow to register on the [email or web address] Patient Portal for access to your information. You can also access the [email or web address] Patient Portal on the [facility]. Simply click on Health Records under Health Data and then click on the [employer] logo. HOW TO SAFELY DISPOSE OF PRESCRIPTION MEDICATIONS Please use one of the following methods to safely dispose of your unused medications. 1.Use a drug disposal kit: the drug disposal pouch allows you to safely discard your old and unused drugs. Ask your nurse to give you one when you are discharged.2.Visit a local take-back location: Many local pharmacies and police departments have programs that collect old and unwanted prescription drugs. Call your local pharmacy or go to http://[employer].Lobster/[email or web address] to find one close to you.3.Make use of household items: Use cat litter or old coffee grounds to dispose medications if other options are not available. Mix your drugs with these household products, seal them in an airtight container and throw it into the garbage. Call [facility]: [phone] to be sure your drugs can be disposed of in this way. Some medicines may require a different approach.4.Never flush your medications down the toilet. IF YOU HAVE BEEN PRESCRIBED AN OPIOIDS FOR PAIN If you have been prescribed an opioid (such as hydrocodone, oxycodone or morphine), it is critical to understand the possible side effects and risks of opioid pain medications. Even when taken as directed, opioids can have several side effects including: Tolerance, meaning you might need to take more of a medication for the same pain relief. Nausea, vomiting and/or constipation. Sleepiness, dizziness, dry mouth, confusion, depression or itching. Physical dependence, meaning you have withdrawal symptoms when a medication is stopped ? this can develop within a few days. KNOW YOUR RESPONSIBILITIES It is important to know exactly how much and how often to take the opioid pain medications you are prescribed. Never take opioids in higher amounts or more often than prescribed. Do not combine opioids with alcohol or other drugs that cause drowsiness, such as benzodiazepines, also known as benzos, including diazepam and alprazolam, muscle relaxants or sleep aids. Never sell or share prescription opioids. This is illegal. Store opioids in a secure place and out of reach of others (including children, family, friends and visitors). The last page(s) of this document has been signed and retained as a CHART COPY Signatures Patient Education Materials Vomiting (Adult) Medication Leaflets My discharge plan and instructions have been reviewed and explained to me and I,AALIYAH MALDONADO M understand my current condition and have read and understand these discharge instructions. I have received a written copy of the plan/instructions. If I have questions, I am aware that I should contact my doctor. Patient/Fingerprint Clerk Signature: Date/Time: Relationship to Patient: ____ Witness Name/Signature: Date/Time: [facility] 07-16-2022 Note ORIGINAL EXAMINATION: CT OF THE ABDOMEN AND PELVIS WITHOUT DHFQWIXL93/2/2022 10:[address] ABDOMEN/PELVIS WITHOUT CONTRAST TECHNIQUE: CT of the abdomen and pelvis was performed without the administration of intravenous contrast. Multiplanar reformatted images are provided for review. Automated exposure control, iterative reconstruction, and/or weight based adjustment of the mA/kV was utilized to reduce the radiation dose to as low as reasonably achievable. COMPARISON: None HISTORY: ORDERING SYSTEM PROVIDED HISTORY: Reason for Exam: Rt flank pain FINDINGS: The liver is unremarkable in size and contour. The gallbladder, pancreas, spleen, bilateral adrenal glands are unremarkable. The nonenhanced kidneys are without evidence of hydronephrosis. The ureters are normal course and caliber. There is no evidence of urolithiasis. There is a small hiatal hernia. Otherwise, the visualized esophagus, stomach, and duodenum are unremarkable. The visualized aorta is nonaneurysmal. No evidence of bowel obstruction. Under distended colon limits evaluation. There are multiple nondilated fluid filled small bowel loops with several air-fluid levels. The appendix is normal. No pathologically enlarged lymph nodes. Scattered nonenlarged lymph nodes in the abdomen and pelvis may be reactive. There is no free intraperitoneal air or fluid. Under distended urinary bladder limits evaluation. The uterus is within normal limits. No acute soft tissue, bony, or lower lung findings. Small amount air and fluid density in the subcutaneous fat the of both the right flank and the left supragluteal region probably represent injection sites. IMPRESSION: No obstructive uropathy. Liquid stool in the large bowel could reflect diarrheal illness in the appropriate clinical context. I have personally reviewed the images of this examination and agree with the resident's findings and interpretation. RECOMMENDATIONS: Unavailable Interpreted by: Feliciano Sosa Preliminary Report By: Pedro Luis Nava Electronically signed By Feliciano Sosa Dictated Date: 07/16/2022 10:33:02 PM Prelim Date: 07/16/2022 10:39:06 PM Sign Date: 07/16/2022 10:49:48 PM Ordering Provider: [facility] 07-16-2022 Note ORIGINAL EXAMINATION: CT OF THE ABDOMEN AND PELVIS WITHOUT GOGWFASV01/2/2022 10:[address] ABDOMEN/PELVIS WITHOUT CONTRAST TECHNIQUE: CT of the abdomen and pelvis was performed without the administration of intravenous contrast. Multiplanar reformatted images are provided for review. Automated exposure control, iterative reconstruction, and/or weight based adjustment of the mA/kV was utilized to reduce the radiation dose to as low as reasonably achievable. COMPARISON: None HISTORY: ORDERING SYSTEM PROVIDED HISTORY: Reason for Exam: Rt flank pain FINDINGS: The liver is unremarkable in size and contour. The gallbladder, pancreas, spleen, bilateral adrenal glands are unremarkable. The nonenhanced kidneys are without evidence of hydronephrosis. The ureters are normal course and caliber. There is no evidence of urolithiasis. There is a small hiatal hernia. Otherwise, the visualized esophagus, stomach, and duodenum are unremarkable. The visualized aorta is nonaneurysmal. No evidence of bowel obstruction. Under distended colon limits evaluation. There are multiple nondilated fluid filled small bowel loops with several air-fluid levels. The appendix is normal. No pathologically enlarged lymph nodes. Scattered nonenlarged lymph nodes in the abdomen and pelvis may be reactive. There is no free intraperitoneal air or fluid. Under distended urinary bladder limits evaluation. The uterus is within normal limits. No acute soft tissue, bony, or lower lung findings. Small amount air and fluid density in the subcutaneous fat the of both the right flank and the left supragluteal region probably represent injection sites. IMPRESSION: No obstructive uropathy. Liquid stool in the large bowel could reflect diarrheal illness in the appropriate clinical context. I have personally reviewed the images of this examination and agree with the resident's findings and interpretation. RECOMMENDATIONS: Unavailable Interpreted by: Feliciano Sosa Preliminary Report By: Pedro Luis Nava Electronically signed By Feliciano Sosa Dictated Date: 07/16/2022 10:33:02 PM Prelim Date: 07/16/2022 10:39:06 PM Sign Date: 07/16/2022 10:49:48 PM Ordering Provider: [facility] 07-16-2022 Note HNO ID: [id number] Author: Justin Butterfield PA-C Service: ? Author Type: Physician Real Estate Attorney Type: Progress Notes Filed: 07/16/2022 7:30 PM Note Text: Aaliyah Maldonado is a 22 year old female who presents Patient presents with: Dysuria: Started Tuesday - Burning with Urination, Fever 101, BAUER, Body Aches, Neck Pain, Emesis, Unable to keep fluids down today - No Meds - Has Rx for Zofran but has not taken any today HPI: Pt presents with dysuria that started on Tuesday, seemed to improve Tuesday through Tuesday and then returned in the last 24 hours. Has run a fever at home, T-max 101, has been febrile almost every evening. Today developed emesis, has vomited 4 times, unable to keep down any fluids or medication. REVIEW OF SYSTEMS: CONSTITUTIONAL: +fever; No chills, nightsweats, unintended weight loss CARDIOVASCULAR: Denies chest pain, dyspnea, palpitations PULM: Denies dyspnea, cough, wheeze. GI: +vomiting; Denies abdominal pain, constipation, diarrhea, : See HPI INTEGUMENTARY: Denies rashes, lesions, wounds Current Outpatient Medications Medication Sig Dispense Refill AIMOVIG AUTOINJECTOR 140 mg/mL auto-injector hydrOXYzine pamoate (VISTARIL) 25 mg capsule levonorgestrel-ethinyl estradiol 0.15 mg-30 mcg (91) per tab, 3 month pack gabapentin (NEURONTIN) 100 mg capsule amphetamine-dextroamphetamine XR (ADDERALL XR) 20 mg 24 hr capsule busPIRone HCl 30 mg tablet ondansetron orally disintegrating (ZOFRAN ODT) 4 mg disintegrating tablet dissolve 1 tablet ON TONGUE every 4 hours if needed for nausea and vomiting 60 tablet 2 FLUoxetine (PROZAC) 20 mg capsule Take the 20 mg cap along with the 10 mg cap to total 30 mg daily, by mouth. 30 capsule 3 FLUoxetine (PROZAC) 10 mg capsule Take 10 mg cap along with the 20 mg cap total 30 mg daily by mouth 30 capsule 3 topiramate (TOPAMAX) 50 mg tablet Take 1 tablet by mouth twice daily. 60 tablet 3 fluticasone (FLONASE) 50 mcg/actuation nasal spray Use 1 Anton in each nostril once daily. 1 Bottle 0 ibuprofen (MOTRIN) 600 mg tablet Take 600 mg by mouth four times daily as needed. 0 albuterol HFA (PROVENTIL HFA, VENTOLIN HFA) 90 mcg/actuation inhaler Inhale 2 Puffs as instructed every 4 hours as needed. 1 Inhaler 0 SUMAtriptan (IMITREX) 100 mg tablet Take 1 tablet by mouth as needed for Migraine Headache (see administration instructions). 18 tablet 2 QUEtiapine XR (SEROQUEL XR) 50 mg Tb24 Take 2 tablets by mouth daily at bedtime. 60 tablet 3 No current facility-administered medications for this visit. ALLERGIES Allergen Reactions Zpak [Azithromycin] Diarrhea Diarrhea AND stomach pain BP 91/53 (BP Site: Right Arm, BP Position: Sitting, BP Cuff Size: Large Adult) Pulse 97 Temp 37 ?C (98.6 ?F) (Oral) Wt 106.1 kg (233 lb 14.4 oz) LMP (LMP Unknown) SpO2 98% BMI 44.20 kg/m? Physical Exam General: Appears to not feel well Skin: Skin in warm, dry and intact without rashes or lesions. Appropriate color for ethnicity. Head: The head is normocephalic and atraumatic Eyes: Conjunctivae are clear without exudates or hemorrhage. Eyelids are normal in appearance without swelling or lesions. Throat: Oral mucosa is pink and moist Neck: The neck is supple without adenopathy. Trachea is midline. Cardiac: Heart rate and rhythm are normal. Respiratory: No signs of respiratory distress. Lung sounds are clear in all lobes bilaterally without rales, ronchi, or wheezes. Abdominal: Right flank pain, abdomen is soft and nontender, nondistended. Extremities: Steady gait noted. Neurological: The patient is awake, alert and oriented to person, place, and time with normal speech. Psychiatric: Appropriate mood and affect. Diagnosis ASSESSMENT/PLAN: 1. Dysuria - ICD9: 788.1, ICD10: R30.0 (primary diagnosis) - UA DIP, URINE (POC) 2. Acute pyelonephritis - ICD9: 590.10, ICD10: N10 Office Visit on 07/16/2022 Component Date Value Ref Range Status GLUCOSE UA (POCT) 07/16/2022 Negative Negative mg/dL Final BILIRUBIN UA (POCT) 07/16/2022 Negative Negative Final KETONE UA (POCT) 07/16/2022 40 (A) Negative mg/dL Final SPECIFIC GRAVITY UA (POCT) 07/16/2022 >=1.030 1.005 - 1.030 Final HEMOGLOBIN/BLOOD UA (POCT) 07/16/2022 Large (A) Negative Final PH UA (POCT) 07/16/2022 5.5 4.5 - 8.0 Final PROTEIN UA (POCT) 07/16/2022 Trace (A) Negative mg/dL Final UROBILINOGEN UA (POCT) 07/16/2022 0.2 Normal E.U./dL Final NITRITE UA (POCT) 07/16/2022 Negative Negative Final LEUKOCYTES UA (POCT) 07/16/2022 Trace (A) Negative Final COLOR UA (POCT) 07/16/2022 Yellow Final CLARITY UA (POCT) 07/16/2022 Clear Final Patient presents with dysuria that started on Tuesday, did appear to get better for several days before it returned with worsening symptoms. Today has vomited 4 times, unable to keep down water, popsicles, other fluids. Overall feels horrible . On exam, blood pressure slightly low on initial evaluation, recheck 106/70. Slightly (more content not included)... [facility] 07-16-2022 Instructions Justin Butterfield PA-C - 07/16/2022 7:24 PM EST Please go to the emergency department for further evaluation and treatment. documented in this encounter [facility] 07-16-2022 History of Present illness Narrative Aaliyah Maldonado is a 22 year old female who presents Patient presents with: Dysuria: Started Tuesday - Burning with Urination, Fever 101, BAUER, Body Aches, Neck Pain, Emesis, Unable to keep fluids down today - No Meds - Has Rx for Zofran but has not taken any today HPI: Pt presents with dysuria that started on Tuesday, seemed to improve Tuesday through Tuesday and then returned in the last 24 hours. Has run a fever at home, T-max 101, has been febrile almost every evening. Today developed emesis, has vomited 4 times, unable to keep down any fluids or medication. REVIEW OF SYSTEMS: CONSTITUTIONAL: +fever; No chills, nightsweats, unintended weight loss CARDIOVASCULAR: Denies chest pain, dyspnea, palpitations PULM: Denies dyspnea, cough, wheeze. GI: +vomiting; Denies abdominal pain, constipation, diarrhea, : See HPI INTEGUMENTARY: Denies rashes, lesions, wounds Current Outpatient Medications Medication Sig Dispense Refill AIMOVIG AUTOINJECTOR 140 mg/mL auto-injector hydrOXYzine pamoate (VISTARIL) 25 mg capsule levonorgestrel-ethinyl estradiol 0.15 mg-30 mcg (91) per tab, 3 month pack gabapentin (NEURONTIN) 100 mg capsule amphetamine-dextroamphetamine XR (ADDERALL XR) 20 mg 24 hr capsule busPIRone HCl 30 mg tablet ondansetron orally disintegrating (ZOFRAN ODT) 4 mg disintegrating tablet dissolve 1 tablet ON TONGUE every 4 hours if needed for nausea and vomiting 60 tablet 2 FLUoxetine (PROZAC) 20 mg capsule Take the 20 mg cap along with the 10 mg cap to total 30 mg daily, by mouth. 30 capsule 3 FLUoxetine (PROZAC) 10 mg capsule Take 10 mg cap along with the 20 mg cap total 30 mg daily by mouth 30 capsule 3 topiramate (TOPAMAX) 50 mg tablet Take 1 tablet by mouth twice daily. 60 tablet 3 fluticasone (FLONASE) 50 mcg/actuation nasal spray Use 1 Anton in each nostril once daily. 1 Bottle 0 ibuprofen (MOTRIN) 600 mg tablet Take 600 mg by mouth four times daily as needed. 0 albuterol HFA (PROVENTIL HFA, VENTOLIN HFA) 90 mcg/actuation inhaler Inhale 2 Puffs as instructed every 4 hours as needed. 1 Inhaler 0 SUMAtriptan (IMITREX) 100 mg tablet Take 1 tablet by mouth as needed for Migraine Headache (see administration instructions). 18 tablet 2 QUEtiapine XR (SEROQUEL XR) 50 mg Tb24 Take 2 tablets by mouth daily at bedtime. 60 tablet 3 No current facility-administered medications for this visit. ALLERGIES Allergen Reactions Zpak [Azithromycin] Diarrhea Diarrhea & stomach pain BP 91/53 (BP Site: Right Arm, BP Position: Sitting, BP Cuff Size: Large Adult) Pulse 97 Temp 37 C (98.6 F) (Oral) Wt 106.1 kg (233 lb 14.4 oz) LMP (LMP Unknown) SpO2 98% BMI 44.20 kg/m Physical Exam General: Appears to not feel well Skin: Skin in warm, dry and intact without rashes or lesions. Appropriate color for ethnicity. Head: The head is normocephalic and atraumatic Eyes: Conjunctivae are clear without exudates or hemorrhage. Eyelids are normal in appearance without swelling or lesions. Throat: Oral mucosa is pink and moist Neck: The neck is supple without adenopathy. Trachea is midline. Cardiac: Heart rate and rhythm are normal. Respiratory: No signs of respiratory distress. Lung sounds are clear in all lobes bilaterally without rales, ronchi, or wheezes. Abdominal: Right flank pain, abdomen is soft and nontender, nondistended. Extremities: Steady gait noted. Neurological: The patient is awake, alert and oriented to person, place, and time with normal speech. Psychiatric: Appropriate mood and affect. Diagnosis ASSESSMENT/PLAN: 1. Dysuria - ICD9: 788.1, ICD10: R30.0 (primary diagnosis) - UA DIP, URINE (POC) 2. Acute pyelonephritis - ICD9: 590.10, ICD10: N10 Office Visit on 07/16/2022 Component Date Value Ref Range Status GLUCOSE UA (POCT) 07/16/2022 Negative Negative mg/dL Final BILIRUBIN UA (POCT) 07/16/2022 Negative Negative Final KETONE UA (POCT) 07/16/2022 40 (A) Negative mg/dL Final SPECIFIC GRAVITY UA (POCT) 07/16/2022 >=1.030 1.005 - 1.030 Final HEMOGLOBIN/BLOOD UA (POCT) 07/16/2022 Large (A) Negative Final PH UA (POCT) 07/16/2022 5.5 4.5 - 8.0 Final PROTEIN UA (POCT) 07/16/2022 Trace (A) Negative mg/dL Final UROBILINOGEN UA (POCT) 07/16/2022 0.2 Normal E.U./dL Final NITRITE UA (POCT) 07/16/2022 Negative Negative Final LEUKOCYTES UA (POCT) 07/16/2022 Trace (A) Negative Final COLOR UA (POCT) 07/16/2022 Yellow Final CLARITY UA (POCT) 07/16/2022 Clear Final Patient presents with dysuria that started on Tuesday, did appear to get better for several days before it returned with worsening symptoms. Today has vomited 4 times, unable to keep down water, popsicles, other fluids. Overall feels horrible . On exam, blood pressure slightly low on initial evaluation, recheck 106/70. Slightly tachycardic at 102. She is afebrile. She appears to not feel well. She does have flank pain on the right. Urinalysis shows ketones. Discussed with patient I am concerned for a pyelonephritis. I have recommended higher level of care. Mother has accompanied her to the [facility] visit, she is agreeable. Mother will drive her to the ED for further evaluation and treatment. Justin Butterfield PA-C documented in this encounter [facility] 06-07-2022 Hospital Discharge instructions Patient Education 06/07/2022 07:57:23 HEADACHE, Migraine (Classical) Migraine Headache Migraine headaches are caused by changes in blood flow to the brain. This causes throbbing or constant pain on one or both sides of your head. The pain may last from a few hours to several days. You usually will have nausea, vomiting, sensitivity to light and sound, and blurred vision. A migraine may be triggered by emotional stress or depression, or by hormone changes during the menstrual cycle. Other triggers include control pills, overuse of migraine medicines, alcohol or caffeine, foods with tyramine, eye strain, weather changes, missed meals, or too little or too much sleep. Home care Follow these tips when taking care of yourself at home: Don t drive yourself home if you were given pain medicine for your headache. Instead, have someone else drive you home. Try to sleep when you get home. You should feel much better when you wake up. Cold can help ease migraine symptoms. Put an ice pack on your forehead or at the base of your skull. Put heat on the back of your neck to help ease any neck spasm. Drink only clear liquids or eat a light diet until your symptoms get better. This will help you avoid nausea and vomiting. How to prevent migraines Pay attention to what seems to trigger your headache. Try to avoid the triggers when you can. If you have frequent headaches, consider keeping a headache diary. In it, write down what you were doing, feeling, or eating in the hours before each headache. Show this to your health care provider to help find the cause of your headaches. If stress seems to be a trigger for your headaches, figure out what is causing stress in your life. Learn new ways to handle your stress. Ideas include regular exercise, biofeedback, self-hypnosis, and meditation. Talk with your health care provider to find out more information about managing stress. Many books and digital media are also available on this subject. Tyramine is a substance found in many foods. It can trigger a migraine in some people. These foods contain tyramine: Chocolate Yogurt All cheeses but cottage cheese and cream cheese Smoked or pickled fish and meat, including chavez, caviar, bologna, pepperoni, and salami Liver Avocados Bananas Figs Raisins Red wine Try staying away from these foods for 1 to 2 months to see if you have fewer headaches. How to treat future headaches Take time out at the first sign of a headache, if possible. Find a quiet, dark, comfortable place to sit or lie down. Let yourself relax or sleep. Put an ice pack on your forehead or on the area of greatest pain. A heating pad and massage may help if you are having a muscle spasm and tightness in your neck. If you have been prescribed a medicine to stop a migraine headache, use this at the first warning sign of the headache for best results. First signs may be an aura or pain. If you need to take medicine often for your migraine, talk with your health care provider about other ways to prevent your headaches. Follow-up care Follow up with your health care provider if your headache doesn t get better within the next 24 hours. Talk with your provider if you have frequent headaches. He or she can figure out a treatment plan. Ask if you can have medicine to take at home the next time you get a bad headache. This may keep you from having to visit the emergency department in the future. You may need to see a headache specialist (neurologist) if you continue to have headaches. When to seek medical advice Call your health care provider right away if any of these occur: Your head pain gets worse, or doesn t get better within 24 hours You can t keep liquids down (repeated vomiting) Pain in your sinuses, ears, or throat Fever of 100.4 F (38 C) or higher, or as directed by your health care provider Stiff neck Extreme drowsiness, confusion, or fainting Dizziness, or dizziness with spinning sensation (vertigo) Weakness in an arm or leg, or on one side of your face Difficulty talking or seeing [id number] [employer]. [address] [place] [address]. All rights reserved. This information is not intended as a substitute for professional medical care. Always follow your healthcare professional's instructions. Follow Up Care 06/07/2022 07:18:03 With:Your neurologist Address: When:2-4 days With:ROSS FISHER MD, Surgery Address: [address] [place] [id number] When:2-4 days With:Go to emergency room if symptoms worsen Address:Unknown When:2-4 days [facility] 06-07-2022 Note Discharge Instructions Thank you for allowing [facility] to assist you with your healthcare needs. The following is important discharge information regarding your hospital visit. Diagnosis from Today's Visit Migraine Headache What to Do Next Instructions from Your Care Team No qualifying data available. Post Acute Orders No qualifying data available. You Need to Schedule the Following Appointments Follow Up with Your neurologist When Within 2-4 days Where: Follow Up with ROSS FISHER MD, Surgery When Within 2-4 days Where: [address] [place] [address]- Follow Up with Go to emergency room if symptoms worsen When Within 2-4 days Allergies azithromycin Medications Please ask your primary doctor or pharmacist before taking any other medication not listed, including over the counter drugs, herbal medications, vitamins and or supplements as they may interact with your home medications. What How Much When Instructions Last Dose Unchanged albuterol (albuterol MDI (90 mcg/ inh) CFC free inhalation aerosol) 1 puff(s) by inhalation Four (4) times a day as needed for as needed for wheezing Unchanged amphetamine-dextroamphetamine (amphetamine-dextroamphetamine 20 mg oral capsule, extended release) 1 cap by mouth Once a day (in the morning) Unchanged benzonatate (benzonatate 100 mg oral capsule) 1 cap by mouth Three (3) times a day as needed for as needed for cough Duration: 7 Days Unchanged busPIRone (busPIRone 15 mg oral tablet) 1 tab(s) by mouth Three (3) times a day Unchanged clonazePAM (clonazePAM 0.5 mg oral tablet) 1 tab(s) by mouth Three (3) times a day Unchanged cyclobenzaprine (cyclobenzaprine 7.5 mg oral tablet) 1 tab(s) by mouth Three (3) times a day as needed for as needed for spasm Unchanged doxycycline (doxycycline hyclate 100 mg oral capsule) 1 cap by mouth Two (2) times a day Duration: 10 Days Unchanged FLUoxetine (FLUoxetine 10 mg oral capsule) 1 cap by mouth Once a day Unchanged gabapentin (gabapentin 100 mg oral capsule) 2 cap by mouth Two (2) times a day Unchanged methylPREDNISolone (methylPREDNISolone Dosepak 4 mg tablet) 1 Packet(s) by mouth Once a day Duration: 6 Days as directed on package labeling Unchanged topiramate (Topamax 50 mg oral tablet) 1 tab(s) by mouth Two (2) times a day Please take this list to your next doctor s visit. Bring all medications you take, including over the counter medications, herbals and other supplements with you to your doctor s visit. Patients and families are reminded to discard old lists and to update any records with all medication providers or retail pharmacies. Education Materials Migraine Headache Migraine headaches are caused by changes in blood flow to the brain. This causes throbbing or constant pain on one or both sides of your head. The pain may last from a few hours to several days. You usually will have nausea, vomiting, sensitivity to light and sound, and blurred vision. A migraine may be triggered by emotional stress or depression, or by hormone changes during the menstrual cycle. Other triggers include control pills, overuse of migraine medicines, alcohol or caffeine, foods with tyramine, eye strain, weather changes, missed meals, or too little or too much sleep. Home care Follow these tips when taking care of yourself at home: Don t drive yourself home if you were given pain medicine for your headache. Instead, have someone else drive you home. Try to sleep when you get home. You should feel much better when you wake up. Cold can help ease migraine symptoms. Put an ice pack on your forehead or at the base of your skull. Put heat on the back of your neck to help ease any neck spasm. Drink only clear liquids or eat a light diet until your symptoms get better. This will help you avoid nausea and vomiting. How to prevent migraines Pay attention to what seems to trigger your headache. Try to avoid the triggers when you can. If you have frequent headaches, consider keeping a headache diary. In it, write down what you were doing, feeling, or eating in the hours before each headache. Show this to your health care provider to help find the cause of your headaches. If stress seems to be a trigger for your headaches, figure out what is causing stress in your life. Learn new ways to handle your stress. Ideas include regular exercise, biofeedback, self-hypnosis, and meditation. Talk with your health care provider to find out more information about managing stress. Many books and digital media are also available on this subject. Tyramine is a substance found in many foods. It can trigger a migraine in some people. These foods contain tyramine: Chocolate Yogurt All cheeses but cottage cheese and cream cheese Smoked or pickled fish and meat, including chavez, caviar, bologna, pepperoni, and salami Liver Avocados Bananas Figs Raisins Red wine Try staying away from these foods for 1 to 2 months to see if you have fewer headaches. How to treat future headaches Take time out at the first sign of a headache, if possible. Find a quiet, dark, comfortable place to sit or lie down. Let yourself relax or sleep. Put an ice pack on your forehead or on the area of greatest pain. A heating pad and massage may help if you are having a muscle spasm and tightness in your neck. If you have been prescribed a medicine to stop a migraine headache, use this at the first warning sign of the headache for best results. First signs may be an aura or pain. If you need to take medicine often for your migraine, talk with your health care provider about other ways to prevent your headaches. Follow-up care Follow up with your health care provider if your headache doesn t get better within the next 24 hours. Talk with your provider if you have frequent headaches. He or she can figure out a treatment plan. Ask if you can have medicine to take at home the next time you get a bad headache. This may keep you from having to visit the emergency department in the future. You may need to see a headache specialist (neurologist) if you continue to have headaches. When to seek medical advice Call your health care provider right away if any of these occur: Your head pain gets worse, or doesn t get better within 24 hours You can t keep liquids down (repeated vomiting) Pain in your sinuses, ears, or throat Fever of 100.4 F (38 C) or higher, or as directed by your health care provider Stiff neck Extreme drowsiness, confusion, or fainting Dizziness, or dizziness with spinning sensation (vertigo) Weakness in an arm or leg, or on one side of your face Difficulty talking or seeing 3665-7133 [employer]. [address] [place] [address]. All rights reserved. This information is not intended as a substitute for professional medical care. Always follow your healthcare professional's instructions. Additional Information VACCINATE! IT SAVES LIVES! Members of the community who have not yet received the COVID-19 vaccine and would like to receive it can visit one of [facility] vaccine clinics. There are many vaccine clinic locations within the [facility]. For locations and available times, please visit [email or web address]. It is important to note that some COVID mobile vaccine clinics are held outdoors and may be canceled in rainy or stormy conditions. To learn more about pediatric vaccinations (ages 5-11), we invite you to visit the [facility] webpage. [email or web address] To learn more about the COVID-19 vaccine, we invite you to visit the [facility] website for a list of frequently asked questions. [email or web address] [facility] Mobile Digital Patient Portal Access Instructions: Stay connected with your healthcare team and access your personal medical information anytime with the [facility] Patient Portal. If you would like a full copy of your medical records please contact the [facility] Medical Records Department Tuesday through Tuesday between 8a.m. and 4:30p.m. Please follow the directions below to access the portal: 1.Access the email account you provided upon registration to the [facility].2.Look for an invitation email from [facility].3.Open the email and access the invitation link: Accept Invitation to [facility].Fill in the required julian to create your account. Sign into [email or web address] with your username and password that you created in the above steps to stay up to date. You can then view a summary of results, a summary of your visits, and the ability to download your summaries to your computer or send the information securely to a physician. Remember that your healthcare information is confidential, so carefully consider who you will allow to register on the [facility] Patient Portal for access to your information. You can also access the [facility] Patient Portal on the [email or web address] ifeanyi. Simply click on Health Records under Health Data and then click on the [facility] logo. HOW TO SAFELY DISPOSE OF PRESCRIPTION MEDICATIONS Please use one of the following methods to safely dispose of your unused medications. 1.Use a drug disposal kit: the drug disposal pouch allows you to safely discard your old and unused drugs. Ask your nurse to give you one when you are discharged.2.Visit a local take-back location: Many local pharmacies and police departments have programs that collect old and unwanted prescription drugs. Call your local pharmacy or go to http://CVRx.Lobster/7J6Um9y to find one close to you.3.Make use of household items: Use cat litter or old coffee grounds to dispose medications if other options are not available. Mix your drugs with these household products, seal them in an airtight container and throw it into the garbage. Call [facility]: [phone] to be sure your drugs can be disposed of in this way. Some medicines may require a different approach.4.Never flush your medications down the toilet. IF YOU HAVE BEEN PRESCRIBED AN OPIOIDS FOR PAIN If you have been prescribed an opioid (such as hydrocodone, oxycodone or morphine), it is critical to understand the possible side effects and risks of opioid pain medications. Even when taken as directed, opioids can have several side effects including: Tolerance, meaning you might need to take more of a medication for the same pain relief. Nausea, vomiting and/or constipation. Sleepiness, dizziness, dry mouth, confusion, depression or itching. Physical dependence, meaning you have withdrawal symptoms when a medication is stopped ? this can develop within a few days. KNOW YOUR RESPONSIBILITIES It is important to know exactly how much and how often to take the opioid pain medications you are prescribed. Never take opioids in higher amounts or more often than prescribed. Do not combine opioids with alcohol or other drugs that cause drowsiness, such as benzodiazepines, also known as benzos, including diazepam and alprazolam, muscle relaxants or sleep aids. Never sell or share prescription opioids. This is illegal. Store opioids in a secure place and out of reach of others (including children, family, friends and visitors). The last page(s) of this document has been signed and retained as a CHART COPY Signatures Patient Education Materials HEADACHE, Migraine (Classical) Medication Leaflets My discharge plan and instructions have been reviewed and explained to me and I,AALIYAH MALDONADO M understand my current condition and have read and understand these discharge instructions. I have received a written copy of the plan/instructions. If I have questions, I am aware that I should contact my doctor. Patient/Fingerprint Clerk Signature: Date/Time: Relationship to Patient: ____ Witness Name/Signature: Date/Time: [facility] 05-27-2022 Hospital Discharge instructions Patient Education 05/27/2022 04:08:19 Otitis Media, Wait And See Antibiotic Treatment (Child Over 6 Mo) Middle Ear Infection, Wait and See Antibiotic Treatment (Child) Your child has an infection of the middle ear (the space behind the eardrum). Sometimes the common cold causes this type of infection. This is because congestion can block the internal passage (eustachian tube) that drains fluid from the middle ear. When the middle ear fills with fluid, bacteria or viruses may grow there, causing an infection. Until recently, antibiotics were used to treat almost all cases of middle ear infection. Doctors now know that most cases of ear infection will get better without antibiotics. The reasons for not using antibiotics include: Antibiotics don't relieve pain in the first 24 hours and only have a minimal effect on pain after that. Antibiotics often prescribed for ear infection may cause diarrhea or other side effects. Antibiotics don't help with viral infections. Antibiotics don't treat middle ear fluid. Frequent use of antibiotics cause bacteria to become resistant. This makes the bacteria harder to treat in the future. Certain antibiotics are very expensive. For these reasons, you are being given a wait and see prescription. That means treating your child only with acetaminophen or ibuprofen and pain-relieving ear drops for the first 2 days to see if it improves. Only fill the antibiotic prescription if your child is not better or is getting worse 2 days after today s visit. Home care The following are general care guidelines: Fluids. Fever increases water loss from the body. For infants under age 1, continue regular formula or breast feedings. Between feedings give an oral rehydration solution. You can buy oral rehydration solution from grocery and drug stores. No prescription is needed. For children over 1 year old, give plenty of fluids like water, juice, lemon-shaktoolik soda, romi-yulisa, lemonade, or popsicles. Sports drinks are also OK. Never give your child energy drinks containing caffeine. Eating. If your child doesn t want to eat solid foods, it s OK for a few days, as long as the child drinks lots of fluid. Rest. Keep children with fever at home resting or playing quietly. Your child may return to daycare or school when the fever is gone and he or she is eating well and feeling better. Fever and pain. Your child may use acetaminophen to control pain. You may give a child over 6 months ibuprofen instead of acetaminophen. If your child has chronic liver or kidney disease or ever had a stomach ulcer or GI bleeding, talk with your doctor before using these medicines. Do not give Aspirin to anyone under 18 years of age who is ill with a fever. It may cause a potentially life-threatening condition called Jeison syndrome. Ear drops. You may give your child pain-relieving ear drops. These should be used as directed. Antibiotics. Only fill the antibiotic prescription if your child is not better or is getting worse 2 days after today s visit. Once you start the antibiotic, finish all of the medicine prescribed, even though your child may feel better after the first few days. Prevention To reduce the chance of your child getting an ear infection, follow these tips: Breastfeed your child when possible. If you give your child a bottle, don't prop the bottle up. Keep your child away from secondhand smoke. Follow-up care Sometimes the infection does not respond fully to the first antibiotic. A different medicine may be needed. Therefore, make an appointment to have your child s ears rechecked in 2 weeks to be sure the infection has cleared. Call 911 Call 911 if any of the following occur: Unusual fussiness, drowsiness, or confusion No wet diapers for 8 hours, no tears when crying, or a dry mouth Stiff neck Convulsion (seizure) When to seek medical advice Call your child's healthcare provider right away if any of these occur: Symptoms get worse or don't start to get better after 2 days of treatment Fever (see Fever and children, below) Headache or neck pain New rash appears Frequent diarrhea or vomiting Fluid or bloody drainage from the ear Fever and children Always use a digital thermometer to check your child s temperature. Never use a mercury thermometer. For infants and toddlers, be sure to use a rectal thermometer correctly. A rectal thermometer may accidentally poke a hole in (perforate) the rectum. It may also pass on germs from the stool. Always follow the product maker s directions for proper use. If you don t feel comfortable taking a rectal temperature, use another method. When you talk to your child s healthcare provider, tell him or her which method you used to take your child s temperature. Here are guidelines for fever temperature. Ear temperatures aren t accurate before 6 months of age. Don t take an oral temperature until your child is at least 4 years old. Infant under 3 months old: Ask your child s healthcare provider how you should take the temperature. Rectal or forehead (temporal artery) temperature of 100.4 F (38 C) or higher, or as directed by the provider Armpit temperature of 99 F (37.2 C) or higher, or as directed by the provider Child age 3 to 36 months: Rectal, forehead (temporal artery), or ear temperature of 102 F (38.9 C) or higher, or as directed by the provider Armpit temperature of 101 F (38.3 C) or higher, or as directed by the provider Child of any age: Repeated temperature of 104 F (40 C) or higher, or as directed by the provider Fever that lasts more than 24 hours in a child under 2 years old. Or a fever that lasts for 3 days in a child 2 years or older. [id number] [employer]. [address] [place] [address]. All rights reserved. This information is not intended as a substitute for professional medical care. Always follow your healthcare professional's instructions. Follow Up Care 05/27/2022 03:14:38 With:ROSS FISHER Address: [address] [place] [address] Business (1) When:2-4 days Comments:Take Tylenol, ibuprofen for pain, use Sudafed Afrin nasal spray to help with the drainage and decrease pain, if no improvement in 24 to 48 hours or you develop fever then start antibiotics. Be sure to finish antibiotics once you start them. Follow-up with your doctor. [facility] 05-27-2022 Note Discharge Instructions Thank you for allowing [facility] to assist you with your healthcare needs. The following is important discharge information regarding your hospital visit. Diagnosis from Today's Visit Ear pain Otitis media What to Do Next Instructions from Your Care Team No qualifying data available. Post Acute Orders No qualifying data available. You Need to Schedule the Following Appointments Follow Up with ROSS FISHER When Within 2-4 days Why: Take Tylenol, ibuprofen for pain, use Sudafed Afrin nasal spray to help with the drainage and decrease pain, if no improvement in 24 to 48 hours or you develop fever then start antibiotics. Be sure to finish antibiotics once you start them. Follow-up with your doctor. Where: [address] [place] [id number] Business (1) Allergies azithromycin Medications Please ask your primary doctor or pharmacist before taking any other medication not listed, including over the counter drugs, herbal medications, vitamins and or supplements as they may interact with your home medications. What How Much When Instructions Last Dose New amoxicillin-clavulanate (amoxicillin-clavulanate 875 mg-125 mg oral tablet) 1 tab(s) by mouth Every 12 hours Duration: 10 Days Printed Prescription Unchanged albuterol (albuterol MDI (90 mcg/ inh) CFC free inhalation aerosol) 1 puff(s) by inhalation Four (4) times a day as needed for as needed for wheezing Unchanged amphetamine-dextroamphetamine (amphetamine-dextroamphetamine 20 mg oral capsule, extended release) 1 cap by mouth Once a day (in the morning) Unchanged benzonatate (benzonatate 100 mg oral capsule) 1 cap by mouth Three (3) times a day as needed for as needed for cough Duration: 7 Days Unchanged busPIRone (busPIRone 15 mg oral tablet) 1 tab(s) by mouth Three (3) times a day Unchanged clonazePAM (clonazePAM 0.5 mg oral tablet) 1 tab(s) by mouth Three (3) times a day Unchanged cyclobenzaprine (cyclobenzaprine 7.5 mg oral tablet) 1 tab(s) by mouth Three (3) times a day as needed for as needed for spasm Unchanged doxycycline (doxycycline hyclate 100 mg oral capsule) 1 cap by mouth Two (2) times a day Duration: 10 Days Unchanged FLUoxetine (FLUoxetine 10 mg oral capsule) 1 cap by mouth Once a day Unchanged gabapentin (gabapentin 100 mg oral capsule) 2 cap by mouth Two (2) times a day Unchanged methylPREDNISolone (methylPREDNISolone Dosepak 4 mg tablet) 1 Packet(s) by mouth Once a day Duration: 6 Days as directed on package labeling Unchanged topiramate (Topamax 50 mg oral tablet) 1 tab(s) by mouth Two (2) times a day Please take this list to your next doctor s visit. Bring all medications you take, including over the counter medications, herbals and other supplements with you to your doctor s visit. Patients and families are reminded to discard old lists and to update any records with all medication providers or retail pharmacies. Education Materials Middle Ear Infection, Wait and See Antibiotic Treatment (Child) Your child has an infection of the middle ear (the space behind the eardrum). Sometimes the common cold causes this type of infection. This is because congestion can block the internal passage (eustachian tube) that drains fluid from the middle ear. When the middle ear fills with fluid, bacteria or viruses may grow there, causing an infection. Until recently, antibiotics were used to treat almost all cases of middle ear infection. Doctors now know that most cases of ear infection will get better without antibiotics. The reasons for not using antibiotics include: Antibiotics don't relieve pain in the first 24 hours and only have a minimal effect on pain after that. Antibiotics often prescribed for ear infection may cause diarrhea or other side effects. Antibiotics don't help with viral infections. Antibiotics don't treat middle ear fluid. Frequent use of antibiotics cause bacteria to become resistant. This makes the bacteria harder to treat in the future. Certain antibiotics are very expensive. For these reasons, you are being given a wait and see prescription. That means treating your child only with acetaminophen or ibuprofen and pain-relieving ear drops for the first 2 days to see if it improves. Only fill the antibiotic prescription if your child is not better or is getting worse 2 days after today s visit. Home care The following are general care guidelines: Fluids. Fever increases water loss from the body. For infants under age 1, continue regular formula or breast feedings. Between feedings give an oral rehydration solution. You can buy oral rehydration solution from grocery and drug stores. No prescription is needed. For children over 1 year old, give plenty of fluids like water, juice, lemon-shaktoolik soda, romi-yulisa, lemonade, or popsicles. Sports drinks are also OK. Never give your child energy drinks containing caffeine. Eating. If your child doesn t want to eat solid foods, it s OK for a few days, as long as the child drinks lots of fluid. Rest. Keep children with fever at home resting or playing quietly. Your child may return to daycare or school when the fever is gone and he or she is eating well and feeling better. Fever and pain. Your child may use acetaminophen to control pain. You may give a child over 6 months ibuprofen instead of acetaminophen. If your child has chronic liver or kidney disease or ever had a stomach ulcer or GI bleeding, talk with your doctor before using these medicines. Do not give Aspirin to anyone under 18 years of age who is ill with a fever. It may cause a potentially life-threatening condition called Jeison syndrome. Ear drops. You may give your child pain-relieving ear drops. These should be used as directed. Antibiotics. Only fill the antibiotic prescription if your child is not better or is getting worse 2 days after today s visit. Once you start the antibiotic, finish all of the medicine prescribed, even though your child may feel better after the first few days. Prevention To reduce the chance of your child getting an ear infection, follow these tips: Breastfeed your child when possible. If you give your child a bottle, don't prop the bottle up. Keep your child away from secondhand smoke. Follow-up care Sometimes the infection does not respond fully to the first antibiotic. A different medicine may be needed. Therefore, make an appointment to have your child s ears rechecked in 2 weeks to be sure the infection has cleared. Call 911 Call 911 if any of the following occur: Unusual fussiness, drowsiness, or confusion No wet diapers for 8 hours, no tears when crying, or a dry mouth Stiff neck Convulsion (seizure) When to seek medical advice Call your child's healthcare provider right away if any of these occur: Symptoms get worse or don't start to get better after 2 days of treatment Fever (see Fever and children, below) Headache or neck pain New rash appears Frequent diarrhea or vomiting Fluid or bloody drainage from the ear Fever and children Always use a digital thermometer to check your child s temperature. Never use a mercury thermometer. For infants and toddlers, be sure to use a rectal thermometer correctly. A rectal thermometer may accidentally poke a hole in (perforate) the rectum. It may also pass on germs from the stool. Always follow the product maker s directions for proper use. If you don t feel comfortable taking a rectal temperature, use another method. When you talk to your child s healthcare provider, tell him or her which method you used to take your child s temperature. Here are guidelines for fever temperature. Ear temperatures aren t accurate before 6 months of age. Don t take an oral temperature until your child is at least 4 years old. Infant under 3 months old: Ask your child s healthcare provider how you should take the temperature. Rectal or forehead (temporal artery) temperature of 100.4 F (38 C) or higher, or as directed by the provider Armpit temperature of 99 F (37.2 C) or higher, or as directed by the provider Child age 3 to 36 months: Rectal, forehead (temporal artery), or ear temperature of 102 F (38.9 C) or higher, or as directed by the provider Armpit temperature of 101 F (38.3 C) or higher, or as directed by the provider Child of any age: Repeated temperature of 104 F (40 C) or higher, or as directed by the provider Fever that lasts more than 24 hours in a child under 2 years old. Or a fever that lasts for 3 days in a child 2 years or older. [id number] [employer]. [address] [place] [address]. All rights reserved. This information is not intended as a substitute for professional medical care. Always follow your healthcare professional's instructions. Additional Information VACCINATE! IT SAVES LIVES! Members of the community who have not yet received the COVID-19 vaccine and would like to receive it can visit one of [facility] vaccine clinics. There are many vaccine clinic locations within the [facility]. For locations and available times, please visit [email or web address]. It is important to note that some COVID mobile vaccine clinics are held outdoors and may be canceled in rainy or stormy conditions. To learn more about pediatric vaccinations (ages 5-11), we invite you to visit the [facility] webpage. [email or web address]-[email or web address] lfga-[email or web address]-[email or web address].html To learn more about the COVID-19 vaccine, we invite you to visit the [facility] website for a list of frequently asked questions. [email or web address] [email or web address] [facility] Mobile Digital Patient Portal Access Instructions: Stay connected with your healthcare team and access your personal medical information anytime with the [facility] Digital Patient Portal. If you would like a full copy of your medical records please contact the [facility] Medical Records Department Tuesday through Tuesday between 8a.m. and 4:30p.m. Please follow the directions below to access the portal: 1.Access the email account you provided upon registration to the [facility].2.Look for an invitation email from [facility].3.Open the email and access the invitation link: Accept Invitation to [facility]4.Fill in the required julian to create your account. Sign into [email or web address] with your username and password that you created in the above steps to stay up to date. You can then view a summary of results, a summary of your visits, and the ability to download your summaries to your computer or send the information securely to a physician. Remember that your healthcare information is confidential, so carefully consider who you will allow to register on the [facility] Patient Portal for access to your information. You can also access the [facility] Patient Portal on the [email or web address] ifeanyi. Simply click on Health Records under Health Data and then click on the [facility] logo. HOW TO SAFELY DISPOSE OF PRESCRIPTION MEDICATIONS Please use one of the following methods to safely dispose of your unused medications. 1.Use a drug disposal kit: the drug disposal pouch allows you to safely discard your old and unused drugs. Ask your nurse to give you one when you are discharged.2.Visit a local take-back location: Many local pharmacies and police departments have programs that collect old and unwanted prescription drugs. Call your local pharmacy or go to http://bit.Lobster/9W7Ee6m to find one close to you.3.Make use of household items: Use cat litter or old coffee grounds to dispose medications if other options are not available. Mix your drugs with these household products, seal them in an airtight container and throw it into the garbage. Call [facility]: [phone] to be sure your drugs can be disposed of in this way. Some medicines may require a different approach.4.Never flush your medications down the toilet. IF YOU HAVE BEEN PRESCRIBED AN OPIOIDS FOR PAIN If you have been prescribed an opioid (such as hydrocodone, oxycodone or morphine), it is critical to understand the possible side effects and risks of opioid pain medications. Even when taken as directed, opioids can have several side effects including: Tolerance, meaning you might need to take more of a medication for the same pain relief. Nausea, vomiting and/or constipation. Sleepiness, dizziness, dry mouth, confusion, depression or itching. Physical dependence, meaning you have withdrawal symptoms when a medication is stopped ? this can develop within a few days. KNOW YOUR RESPONSIBILITIES It is important to know exactly how much and how often to take the opioid pain medications you are prescribed. Never take opioids in higher amounts or more often than prescribed. Do not combine opioids with alcohol or other drugs that cause drowsiness, such as benzodiazepines, also known as benzos, including diazepam and alprazolam, muscle relaxants or sleep aids. Never sell or share prescription opioids. This is illegal. Store opioids in a secure place and out of reach of others (including children, family, friends and visitors). The last page(s) of this document has been signed and retained as a CHART COPY Signatures Patient Education Materials Otitis Media, Wait And See Antibiotic Treatment (Child Over 6 Mo) Medication Leaflets My discharge plan and instructions have been reviewed and explained to me and I,AALIYAH MALDONADO M understand my current condition and have read and understand these discharge instructions. I have received a written copy of the plan/instructions. If I have questions, I am aware that I should contact my doctor. Patient/Fingerprint Clerk Signature: Date/Time: Relationship to Patient: ____ Witness Name/Signature: Date/Time: [facility] Bayvicik Pichardo 05-21-2022 Hospital Discharge instructions Patient Education 05/21/2022 08:43:57 HEADACHE, Migraine (Classical) Migraine Headache Migraine headaches are caused by changes in blood flow to the brain. This causes throbbing or constant pain on one or both sides of your head. The pain may last from a few hours to several days. You usually will have nausea, vomiting, sensitivity to light and sound, and blurred vision. A migraine may be triggered by emotional stress or depression, or by hormone changes during the menstrual cycle. Other triggers include control pills, overuse of migraine medicines, alcohol or caffeine, foods with tyramine, eye strain, weather changes, missed meals, or too little or too much sleep. Home care Follow these tips when taking care of yourself at home: Don t drive yourself home if you were given pain medicine for your headache. Instead, have someone else drive you home. Try to sleep when you get home. You should feel much better when you wake up. Cold can help ease migraine symptoms. Put an ice pack on your forehead or at the base of your skull. Put heat on the back of your neck to help ease any neck spasm. Drink only clear liquids or eat a light diet until your symptoms get better. This will help you avoid nausea and vomiting. How to prevent migraines Pay attention to what seems to trigger your headache. Try to avoid the triggers when you can. If you have frequent headaches, consider keeping a headache diary. In it, write down what you were doing, feeling, or eating in the hours before each headache. Show this to your health care provider to help find the cause of your headaches. If stress seems to be a trigger for your headaches, figure out what is causing stress in your life. Learn new ways to handle your stress. Ideas include regular exercise, biofeedback, self-hypnosis, and meditation. Talk with your health care provider to find out more information about managing stress. Many books and digital media are also available on this subject. Tyramine is a substance found in many foods. It can trigger a migraine in some people. These foods contain tyramine: Chocolate Yogurt All cheeses but cottage cheese and cream cheese Smoked or pickled fish and meat, including chavez, caviar, bologna, pepperoni, and salami Liver Avocados Bananas Figs Raisins Red wine Try staying away from these foods for 1 to 2 months to see if you have fewer headaches. How to treat future headaches Take time out at the first sign of a headache, if possible. Find a quiet, dark, comfortable place to sit or lie down. Let yourself relax or sleep. Put an ice pack on your forehead or on the area of greatest pain. A heating pad and massage may help if you are having a muscle spasm and tightness in your neck. If you have been prescribed a medicine to stop a migraine headache, use this at the first warning sign of the headache for best results. First signs may be an aura or pain. If you need to take medicine often for your migraine, talk with your health care provider about other ways to prevent your headaches. Follow-up care Follow up with your health care provider if your headache doesn t get better within the next 24 hours. Talk with your provider if you have frequent headaches. He or she can figure out a treatment plan. Ask if you can have medicine to take at home the next time you get a bad headache. This may keep you from having to visit the emergency department in the future. You may need to see a headache specialist (neurologist) if you continue to have headaches. When to seek medical advice Call your health care provider right away if any of these occur: Your head pain gets worse, or doesn t get better within 24 hours You can t keep liquids down (repeated vomiting) Pain in your sinuses, ears, or throat Fever of 100.4 F (38 C) or higher, or as directed by your health care provider Stiff neck Extreme drowsiness, confusion, or fainting Dizziness, or dizziness with spinning sensation (vertigo) Weakness in an arm or leg, or on one side of your face Difficulty talking or seeing [id number] [employer]. [address] [place] [address], [place] [address]. All rights reserved. This information is not intended as a substitute for professional medical care. Always follow your healthcare professional's instructions. Follow Up Care 05/21/2022 07:46:13 With:Follow up with primary care provider Address:Unknown When:2-4 days [facility] Bayvicki Pichardo 05-21-2022 Note Discharge Instructions Thank you for allowing [facility] to assist you with your healthcare needs. The following is important discharge information regarding your hospital visit. Diagnosis from Today's Visit Migraine Headache What to Do Next Instructions from Your Care Team No qualifying data available. Post Acute Orders No qualifying data available. You Need to Schedule the Following Appointments Follow Up with Follow up with primary care provider When Within 2-4 days Allergies azithromycin Medications Please ask your primary doctor or pharmacist before taking any other medication not listed, including over the counter drugs, herbal medications, vitamins and or supplements as they may interact with your home medications. What How Much When Instructions Last Dose Unchanged albuterol (albuterol MDI (90 mcg/ inh) CFC free inhalation aerosol) 1 puff(s) by inhalation Four (4) times a day as needed for as needed for wheezing Unchanged amphetamine-dextroamphetamine (amphetamine-dextroamphetamine 20 mg oral capsule, extended release) 1 cap by mouth Once a day (in the morning) Unchanged benzonatate (benzonatate 100 mg oral capsule) 1 cap by mouth Three (3) times a day as needed for as needed for cough Duration: 7 Days Unchanged busPIRone (busPIRone 15 mg oral tablet) 1 tab(s) by mouth Three (3) times a day Unchanged clonazePAM (clonazePAM 0.5 mg oral tablet) 1 tab(s) by mouth Three (3) times a day Unchanged cyclobenzaprine (cyclobenzaprine 7.5 mg oral tablet) 1 tab(s) by mouth Three (3) times a day as needed for as needed for spasm Unchanged doxycycline (doxycycline hyclate 100 mg oral capsule) 1 cap by mouth Two (2) times a day Duration: 10 Days Unchanged FLUoxetine (FLUoxetine 10 mg oral capsule) 1 cap by mouth Once a day Unchanged gabapentin (gabapentin 100 mg oral capsule) 2 cap by mouth Two (2) times a day Unchanged methylPREDNISolone (methylPREDNISolone Dosepak 4 mg tablet) 1 Packet(s) by mouth Once a day Duration: 6 Days as directed on package labeling Unchanged topiramate (Topamax 50 mg oral tablet) 1 tab(s) by mouth Two (2) times a day Please take this list to your next doctor s visit. Bring all medications you take, including over the counter medications, herbals and other supplements with you to your doctor s visit. Patients and families are reminded to discard old lists and to update any records with all medication providers or retail pharmacies. Education Materials Migraine Headache Migraine headaches are caused by changes in blood flow to the brain. This causes throbbing or constant pain on one or both sides of your head. The pain may last from a few hours to several days. You usually will have nausea, vomiting, sensitivity to light and sound, and blurred vision. A migraine may be triggered by emotional stress or depression, or by hormone changes during the menstrual cycle. Other triggers include control pills, overuse of migraine medicines, alcohol or caffeine, foods with tyramine, eye strain, weather changes, missed meals, or too little or too much sleep. Home care Follow these tips when taking care of yourself at home: Don t drive yourself home if you were given pain medicine for your headache. Instead, have someone else drive you home. Try to sleep when you get home. You should feel much better when you wake up. Cold can help ease migraine symptoms. Put an ice pack on your forehead or at the base of your skull. Put heat on the back of your neck to help ease any neck spasm. Drink only clear liquids or eat a light diet until your symptoms get better. This will help you avoid nausea and vomiting. How to prevent migraines Pay attention to what seems to trigger your headache. Try to avoid the triggers when you can. If you have frequent headaches, consider keeping a headache diary. In it, write down what you were doing, feeling, or eating in the hours before each headache. Show this to your health care provider to help find the cause of your headaches. If stress seems to be a trigger for your headaches, figure out what is causing stress in your life. Learn new ways to handle your stress. Ideas include regular exercise, biofeedback, self-hypnosis, and meditation. Talk with your health care provider to find out more information about managing stress. Many books and digital media are also available on this subject. Tyramine is a substance found in many foods. It can trigger a migraine in some people. These foods contain tyramine: Chocolate Yogurt All cheeses but cottage cheese and cream cheese Smoked or pickled fish and meat, including chavez, caviar, bologna, pepperoni, and salami Liver Avocados Bananas Figs Raisins Red wine Try staying away from these foods for 1 to 2 months to see if you have fewer headaches. How to treat future headaches Take time out at the first sign of a headache, if possible. Find a quiet, dark, comfortable place to sit or lie down. Let yourself relax or sleep. Put an ice pack on your forehead or on the area of greatest pain. A heating pad and massage may help if you are having a muscle spasm and tightness in your neck. If you have been prescribed a medicine to stop a migraine headache, use this at the first warning sign of the headache for best results. First signs may be an aura or pain. If you need to take medicine often for your migraine, talk with your health care provider about other ways to prevent your headaches. Follow-up care Follow up with your health care provider if your headache doesn t get better within the next 24 hours. Talk with your provider if you have frequent headaches. He or she can figure out a treatment plan. Ask if you can have medicine to take at home the next time you get a bad headache. This may keep you from having to visit the emergency department in the future. You may need to see a headache specialist (neurologist) if you continue to have headaches. When to seek medical advice Call your health care provider right away if any of these occur: Your head pain gets worse, or doesn t get better within 24 hours You can t keep liquids down (repeated vomiting) Pain in your sinuses, ears, or throat Fever of 100.4 F (38 C) or higher, or as directed by your health care provider Stiff neck Extreme drowsiness, confusion, or fainting Dizziness, or dizziness with spinning sensation (vertigo) Weakness in an arm or leg, or on one side of your face Difficulty talking or seeing [id number] [employer]. [address] [place] [address], [place] [address]. All rights reserved. This information is not intended as a substitute for professional medical care. Always follow your healthcare professional's instructions. Additional Information VACCINATE! IT SAVES LIVES! Members of the community who have not yet received the COVID-19 vaccine and would like to receive it can visit one of [facility] vaccine clinics. There are many vaccine clinic locations within the State. For locations and available times, please visit [email or web address]. It is important to note that some COVID mobile vaccine clinics are held outdoors and may be canceled in rainy or stormy conditions. To learn more about pediatric vaccinations (ages 5-11), we invite you to visit the [employer] [facility] webpage. [email or web address] [email or web address]-[email or web address] [email or web address].html To learn more about the COVID-19 vaccine, we invite you to visit the [facility] website for a list of frequently asked questions. [email or web address] [email or web address] [facility] Mobile Digital Patient Portal Access Instructions: Stay connected with your healthcare team and access your personal medical information anytime with the [facility] Patient Portal. If you would like a full copy of your medical records please contact the [facility] Medical Records Department Tuesday through Tuesday between 8a.m. and 4:30p.m. Please follow the directions below to access the portal: 1.Access the email account you provided upon registration to the hospital.2.Look for an invitation email from [facility].3.Open the email and access the invitation link: Accept Invitation to [facility].Fill in the required julian to create your account. Sign into [email or web address] with your username and password that you created in the above steps to stay up to date. You can then view a summary of results, a summary of your visits, and the ability to download your summaries to your computer or send the information securely to a physician. Remember that your healthcare information is confidential, so carefully consider who you will allow to register on the [facility] Patient Portal for access to your information. You can also access the [facility] Patient Portal on the [email or web address] [email or web address]. Simply click on Health Records under Health Data and then click on the [employer] logo. HOW TO SAFELY DISPOSE OF PRESCRIPTION MEDICATIONS Please use one of the following methods to safely dispose of your unused medications. 1.Use a drug disposal kit: the drug disposal pouch allows you to safely discard your old and unused drugs. Ask your nurse to give you one when you are discharged.2.Visit a local take-back location: Many local pharmacies and police departments have programs that collect old and unwanted prescription drugs. Call your local pharmacy or go to http://CVRx.Lobster/3P7Tn2k to find one close to you.3.Make use of household items: Use cat litter or old coffee grounds to dispose medications if other options are not available. Mix your drugs with these household products, seal them in an airtight container and throw it into the garbage. Call [facility]: [phone] to be sure your drugs can be disposed of in this way. Some medicines may require a different approach.4.Never flush your medications down the toilet. IF YOU HAVE BEEN PRESCRIBED AN OPIOIDS FOR PAIN If you have been prescribed an opioid (such as hydrocodone, oxycodone or morphine), it is critical to understand the possible side effects and risks of opioid pain medications. Even when taken as directed, opioids can have several side effects including: Tolerance, meaning you might need to take more of a medication for the same pain relief. Nausea, vomiting and/or constipation. Sleepiness, dizziness, dry mouth, confusion, depression or itching. Physical dependence, meaning you have withdrawal symptoms when a medication is stopped ? this can develop within a few days. KNOW YOUR RESPONSIBILITIES It is important to know exactly how much and how often to take the opioid pain medications you are prescribed. Never take opioids in higher amounts or more often than prescribed. Do not combine opioids with alcohol or other drugs that cause drowsiness, such as benzodiazepines, also known as benzos, including diazepam and alprazolam, muscle relaxants or sleep aids. Never sell or share prescription opioids. This is illegal. Store opioids in a secure place and out of reach of others (including children, family, friends and visitors). The last page(s) of this document has been signed and retained as a CHART COPY Signatures Patient Education Materials HEADACHE, Migraine (Classical) Medication Leaflets My discharge plan and instructions have been reviewed and explained to me and IAUDIE ALYSSA M understand my current condition and have read and understand these discharge instructions. I have received a written copy of the plan/instructions. If I have questions, I am aware that I should contact my doctor. Patient/Fingerprint Clerk Signature: Date/Time: Relationship to Patient: ____ Witness Name/Signature: Date/Time: [facility] 05-01-2022 Note HNO ID: [id number] Author: Tim Harry PA-C Service: ? Author Type: Physician Real Estate Attorney Type: Progress Notes Filed: 05/01/2022 2:56 PM Note Text: This note was created using [employer]. Subjective Aaliyah Maldonado is a 22 year old female. HPI presents with head and sinus congestion x 2-weeks. She has taken multiple OTC Cold AND Flu medications with out relief of symptoms. Home Covid testing was negative. PAST MEDICAL HISTORY Diagnosis Date Achilles bursitis or tendinitis 06/16/2009 Concussion 04-21-2015 Depression 04/2009, 04/2015 The depression 04/2015 was with suicidal ideation and patient was hospitalized. Equinus deformity of foot, acquired 06/16/2009 Headache(784.0) 12/09/2009 Menarche Age [age] Years Old Nonspecific (abnormal) findings on radiological and other examination of skull and head resolved assymetry of head Syncope 09/11/2012 Vasovagal episode 07/15/2015 PAST SURGICAL HISTORY Procedure Laterality Date PAST SURGICAL HISTORY OF 2005 Bilateral hip surgery PAST SURGICAL HISTORY OF 2006 Bilateral hip surgery plates removed TONSILLECTOMY AND ADENOIDECTOMY ALLERGIES Zpak [Azithromycin] MEDICATIONS gabapentin (NEURONTIN) 100 mg capsule amphetamine-dextroamphetamine XR (ADDERALL XR) 20 mg 24 hr capsule busPIRone HCl 30 mg tablet SUMAtriptan (IMITREX) 100 mg tablet Take 1 tablet by mouth as needed for Migraine Headache (see administration instructions). ondansetron orally disintegrating (ZOFRAN ODT) 4 mg disintegrating tablet dissolve 1 tablet ON TONGUE every 4 hours if needed for nausea and vomiting FLUoxetine (PROZAC) 20 mg capsule Take the 20 mg cap along with the 10 mg cap to total 30 mg daily, by mouth. FLUoxetine (PROZAC) 10 mg capsule Take 10 mg cap along with the 20 mg cap total 30 mg daily by mouth QUEtiapine XR (SEROQUEL XR) 50 mg Tb24 Take 2 tablets by mouth daily at bedtime. topiramate (TOPAMAX) 50 mg tablet Take 1 tablet by mouth twice daily. fluticasone (FLONASE) 50 mcg/actuation nasal spray Use 1 Anton in each nostril once daily. ibuprofen (MOTRIN) 600 mg tablet Take 600 mg by mouth four times daily as needed. albuterol HFA (PROVENTIL HFA, VENTOLIN HFA) 90 mcg/actuation inhaler Inhale 2 Puffs as instructed every 4 hours as needed. FAMILY HISTORY Problem Relation Age of Onset Diabetes Mother Cancer Mother skin- Unknonw type Hypertension Father Psychiatry Father Diabetes Maternal Grandmother Asthma Maternal Grandmother Hypertension Maternal Grandmother Diabetes Paternal Grandfather Hypertension Paternal Grandfather Cancer Paternal Grandfather Lympoma- leukemia other (leukemia) Paternal Grandfather Hypertension Paternal Grandmother Lipids Paternal Grandmother Social History Tobacco Use Smoking status: Never Smokeless tobacco: Never Substance Use Topics Alcohol use: No Drug use: No Review of Systems HENT: Positive for congestion, postnasal drip, rhinorrhea, sinus pressure and sinus pain. Negative for ear pain and sore throat. Respiratory: Positive for cough. Negative for chest tightness and shortness of breath. Neurological: Positive for headaches. Negative for facial asymmetry and light-headedness. Objective BP 132/61 Pulse 86 Temp 36.2 ?C (97.1 ?F) (Temporal) Resp 16 LMP 11/01/2017 SpO2 100% Physical Exam Vitals and nursing note reviewed. Constitutional: Appearance: Normal appearance. HENT: Head: Normocephalic and atraumatic. Right Ear: Tympanic membrane, ear canal and external ear normal. Left Ear: Tympanic membrane, ear canal and external ear normal. Nose: Nose normal. No congestion or rhinorrhea. Mouth/Throat: Mouth: Mucous membranes are moist. Pharynx: Oropharynx is clear. No oropharyngeal exudate or posterior oropharyngeal erythema. Eyes: General: Right eye: No discharge. Left eye: No discharge. Conjunctiva/sclera: Conjunctivae normal. Cardiovascular: Rate and Rhythm: Normal rate and regular rhythm. Pulses: Normal pulses. Heart sounds: Normal heart sounds. Pulmonary: Effort: Pulmonary effort is normal. Breath sounds: Normal breath sounds. Abdominal: General: Bowel sounds are normal. Palpations: Abdomen is soft. Musculoskeletal: General: Normal range of motion. Cervical back: Normal range of motion. No tenderness. Lymphadenopathy: Cervical: No cervical adenopathy. Skin: General: Skin is warm and dry. Neurological: General: No focal deficit present. Mental Status: She is alert. Psychiatric: Mood and Affect: Mood normal. Assessment and Plan [facility] 05-01-2022 History of Present illness Narrative This note was created using Kofaxter. Subjective Aaliyah Maldonado is a 22 year old female. HPI presents with head and sinus congestion x 2-weeks. She has taken multiple OTC Cold & Flu medications with out relief of symptoms. Home Covid testing was negative. PAST MEDICAL HISTORY Diagnosis Date Achilles bursitis or tendinitis 06/16/2009 Concussion 04-21-2015 Depression 04/2009, 04/2015 The depression 04/2015 was with suicidal ideation and patient was hospitalized. Equinus deformity of foot, acquired 06/16/2009 Headache(784.0) 12/09/2009 Menarche Age [age] Years Old Nonspecific (abnormal) findings on radiological and other examination of skull and head resolved assymetry of head Syncope 09/11/2012 Vasovagal episode 07/15/2015 PAST SURGICAL HISTORY Procedure Laterality Date PAST SURGICAL HISTORY OF 2005 Bilateral hip surgery PAST SURGICAL HISTORY OF 2006 Bilateral hip surgery plates removed TONSILLECTOMY & ADENOIDECTOMY <AGE 12 ALLERGIES Zpak [Azithromycin] MEDICATIONS gabapentin (NEURONTIN) 100 mg capsule amphetamine-dextroamphetamine XR (ADDERALL XR) 20 mg 24 hr capsule busPIRone HCl 30 mg tablet SUMAtriptan (IMITREX) 100 mg tablet Take 1 tablet by mouth as needed for Migraine Headache (see administration instructions). ondansetron orally disintegrating (ZOFRAN ODT) 4 mg disintegrating tablet dissolve 1 tablet ON TONGUE every 4 hours if needed for nausea and vomiting FLUoxetine (PROZAC) 20 mg capsule Take the 20 mg cap along with the 10 mg cap to total 30 mg daily, by mouth. FLUoxetine (PROZAC) 10 mg capsule Take 10 mg cap along with the 20 mg cap total 30 mg daily by mouth QUEtiapine XR (SEROQUEL XR) 50 mg Tb24 Take 2 tablets by mouth daily at bedtime. topiramate (TOPAMAX) 50 mg tablet Take 1 tablet by mouth twice daily. fluticasone (FLONASE) 50 mcg/actuation nasal spray Use 1 Anton in each nostril once daily. ibuprofen (MOTRIN) 600 mg tablet Take 600 mg by mouth four times daily as needed. albuterol HFA (PROVENTIL HFA, VENTOLIN HFA) 90 mcg/actuation inhaler Inhale 2 Puffs as instructed every 4 hours as needed. FAMILY HISTORY Problem Relation Age of Onset Diabetes Mother Cancer Mother skin- Unknonw type Hypertension Father Psychiatry Father Diabetes Maternal Grandmother Asthma Maternal Grandmother Hypertension Maternal Grandmother Diabetes Paternal Grandfather Hypertension Paternal Grandfather Cancer Paternal Grandfather Lympoma- leukemia other (leukemia) Paternal Grandfather Hypertension Paternal Grandmother Lipids Paternal Grandmother Social History Tobacco Use Smoking status: Never Smokeless tobacco: Never Substance Use Topics Alcohol use: No Drug use: No Review of Systems HENT: Positive for congestion, postnasal drip, rhinorrhea, sinus pressure and sinus pain. Negative for ear pain and sore throat. Respiratory: Positive for cough. Negative for chest tightness and shortness of breath. Neurological: Positive for headaches. Negative for facial asymmetry and light-headedness. Objective BP 132/61 Pulse 86 Temp 36.2 C (97.1 F) (Temporal) Resp 16 LMP 11/01/2017 SpO2 100% Physical Exam Vitals and nursing note reviewed. Constitutional: Appearance: Normal appearance. HENT: Head: Normocephalic and atraumatic. Right Ear: Tympanic membrane, ear canal and external ear normal. Left Ear: Tympanic membrane, ear canal and external ear normal. Nose: Nose normal. No congestion or rhinorrhea. Mouth/Throat: Mouth: Mucous membranes are moist. Pharynx: Oropharynx is clear. No oropharyngeal exudate or posterior oropharyngeal erythema. Eyes: General: Right eye: No discharge. Left eye: No discharge. Conjunctiva/sclera: Conjunctivae normal. Cardiovascular: Rate and Rhythm: Normal rate and regular rhythm. Pulses: Normal pulses. Heart sounds: Normal heart sounds. Pulmonary: Effort: Pulmonary effort is normal. Breath sounds: Normal breath sounds. Abdominal: General: Bowel sounds are normal. Palpations: Abdomen is soft. Musculoskeletal: General: Normal range of motion. Cervical back: Normal range of motion. No tenderness. Lymphadenopathy: Cervical: No cervical adenopathy. Skin: General: Skin is warm and dry. Neurological: General: No focal deficit present. Mental Status: She is alert. Psychiatric: Mood and Affect: Mood normal. Assessment and Plan documented in this encounter [facility] 04-17-2022 Hospital Discharge instructions Patient Education 04/17/2022 02:53:15 Headache, Unspecified Headache, Unspecified A number of things can cause headaches. The cause of your headache isn t clear. But it doesn t seem to be a sign of any serious illness. Headache affects almost everyone at some time. It is the most common reason people miss days from work or school. You could have a tension headache or a migraine headache. Stress can cause a tension headache. This can happen if you tense the muscles of your shoulders, neck, and scalp without knowing it. If this stress lasts long enough, you may develop a tension headache. It is not clear why migraines occur, but certain things called triggers can raise the risk of having a migraine attack. Migraine triggers may include emotional stress or depression, or by hormone changes during the menstrual cycle. Other triggers include control pills and other medicines, alcohol or caffeine, foods with tyramine (such as aged cheese, wine), eyestrain, weather changes, missed meals, and lack of sleep or oversleeping. Other causes of headache include: Viral illness with high fever Head injury with concussion Sinus, ear, or throat infection Dental pain and jaw joint (TMJ) pain More serious but less common causes of headache include stroke, brain hemorrhage, brain tumor, meningitis, and encephalitis. Home care Follow these tips when taking care of yourself at home: Don t drive yourself home if you were given pain medicine for your headache. Instead, have someone else drive you home. Try to sleep when you get home. You should feel much better when you wake up. Apply heat to the back of your neck to ease a neck muscle spasm. Take care of a migraine headache by putting an ice pack on your forehead or at the base of your skull. If you have nausea or vomiting, eat a light diet until your headache eases. If you have a migraine headache, use sunglasses when in the daylight or around bright indoor lighting until your symptoms get better. Bright glaring light can make this type of headache worse. Follow-up care Follow up with your healthcare provider, or as advised. Talk with your provider if you have frequent headaches. He or she can help figure out a treatment plan. By knowing the earliest signs of headache, and starting treatment right away, you may be able to stop the pain yourself. When to seek medical advice Call your healthcare provider right away if any of these occur: Your head pain suddenly gets worse after sexual intercourse or strenuous activity Your head pain doesn t get better within 24 hours You aren t able to keep liquids down (repeated vomiting) Fever of 100.4 F (38 C) or higher, or as directed by your healthcare provider Stiff neck Extreme drowsiness, confusion, or fainting Dizziness or dizziness with spinning sensation (vertigo) Weakness in an arm or leg or one side of your face You have trouble talking or seeing [id number] [employer]. [address] [place] [address]. All rights reserved. This information is not intended as a substitute for professional medical care. Always follow your healthcare professional's instructions. Follow Up Care 04/17/2022 01:01:55 With:ROSS FISHER MD, Surgery Address: [address] [place] [phone]- When:2-4 days [facility] 04-17-2022 Note Discharge Instructions Thank you for allowing [facility] to assist you with your healthcare needs. The following is important discharge information regarding your hospital visit. Diagnosis from Today's Visit Headache What to Do Next Instructions from Your Care Team No qualifying data available. Post Acute Orders No qualifying data available. You Need to Schedule the Following Appointments Follow Up with ROSS FISHER MD, Surgery When Within 2-4 days Where: [address] [place] [phone]- Allergies azithromycin Medications Please ask your primary doctor or pharmacist before taking any other medication not listed, including over the counter drugs, herbal medications, vitamins and or supplements as they may interact with your home medications. What How Much When Instructions Last Dose New APAP/ butalbital/ caffeine (APAP/ butalbital/ caffeine 325-50-40 mg oral tablet (Fioricet)) 1 tab(s) by mouth Every 6 hours as needed for as needed Duration: 5 Days Printed Prescription Unchanged amphetamine-dextroamphetamine (amphetamine-dextroamphetamine 20 mg oral capsule, extended release) 1 cap by mouth Once a day (in the morning) Unchanged busPIRone (busPIRone 15 mg oral tablet) 1 tab(s) by mouth Three (3) times a day Unchanged clonazePAM (clonazePAM 0.5 mg oral tablet) 1 tab(s) by mouth Three (3) times a day Unchanged cyclobenzaprine (cyclobenzaprine 7.5 mg oral tablet) 1 tab(s) by mouth Three (3) times a day as needed for as needed for spasm Unchanged FLUoxetine (FLUoxetine 10 mg oral capsule) 1 cap by mouth Once a day Unchanged gabapentin (gabapentin 100 mg oral capsule) 2 cap by mouth Two (2) times a day Unchanged topiramate (Topamax 50 mg oral tablet) 1 tab(s) by mouth Two (2) times a day Please take this list to your next doctor s visit. Bring all medications you take, including over the counter medications, herbals and other supplements with you to your doctor s visit. Patients and families are reminded to discard old lists and to update any records with all medication providers or retail pharmacies. Education Materials Headache, Unspecified A number of things can cause headaches. The cause of your headache isn t clear. But it doesn t seem to be a sign of any serious illness. Headache affects almost everyone at some time. It is the most common reason people miss days from work or school. You could have a tension headache or a migraine headache. Stress can cause a tension headache. This can happen if you tense the muscles of your shoulders, neck, and scalp without knowing it. If this stress lasts long enough, you may develop a tension headache. It is not clear why migraines occur, but certain things called triggers can raise the risk of having a migraine attack. Migraine triggers may include emotional stress or depression, or by hormone changes during the menstrual cycle. Other triggers include control pills and other medicines, alcohol or caffeine, foods with tyramine (such as aged cheese, wine), eyestrain, weather changes, missed meals, and lack of sleep or oversleeping. Other causes of headache include: Viral illness with high fever Head injury with concussion Sinus, ear, or throat infection Dental pain and jaw joint (TMJ) pain More serious but less common causes of headache include stroke, brain hemorrhage, brain tumor, meningitis, and encephalitis. Home care Follow these tips when taking care of yourself at home: Don t drive yourself home if you were given pain medicine for your headache. Instead, have someone else drive you home. Try to sleep when you get home. You should feel much better when you wake up. Apply heat to the back of your neck to ease a neck muscle spasm. Take care of a migraine headache by putting an ice pack on your forehead or at the base of your skull. If you have nausea or vomiting, eat a light diet until your headache eases. If you have a migraine headache, use sunglasses when in the daylight or around bright indoor lighting until your symptoms get better. Bright glaring light can make this type of headache worse. Follow-up care Follow up with your healthcare provider, or as advised. Talk with your provider if you have frequent headaches. He or she can help figure out a treatment plan. By knowing the earliest signs of headache, and starting treatment right away, you may be able to stop the pain yourself. When to seek medical advice Call your healthcare provider right away if any of these occur: Your head pain suddenly gets worse after sexual intercourse or strenuous activity Your head pain doesn t get better within 24 hours You aren t able to keep liquids down (repeated vomiting) Fever of 100.4 F (38 C) or higher, or as directed by your healthcare provider Stiff neck Extreme drowsiness, confusion, or fainting Dizziness or dizziness with spinning sensation (vertigo) Weakness in an arm or leg or one side of your face You have trouble talking or seeing [id number] [employer]. [address] [place] [address], [place] [address]. All rights reserved. This information is not intended as a substitute for professional medical care. Always follow your healthcare professional's instructions. Additional Information VACCINATE! IT SAVES LIVES! Members of the community who have not yet received the COVID-19 vaccine and would like to receive it can visit one of [facility] vaccine clinics. There are many vaccine clinic locations within the [facility]. For locations and available times, please visit [email or web address]. It is important to note that some COVID mobile vaccine clinics are held outdoors and may be canceled in rainy or stormy conditions. To learn more about pediatric vaccinations (ages 5-11), we invite you to visit the [employer] [facility] webpage. [email or web address] To learn more about the COVID-19 vaccine, we invite you to visit the [facility] website for a list of frequently asked questions. [email or web address] [email or web address] [facility] Mobile Digital Patient Portal Access Instructions: Stay connected with your healthcare team and access your personal medical information anytime with the [facility] Patient Portal. If you would like a full copy of your medical records please contact the [facility] Medical Records Department Tuesday through Tuesday between 8a.m. and 4:30p.m. Please follow the directions below to access the portal: 1.Access the email account you provided upon registration to the hospital.2.Look for an invitation email from [facility].3.Open the email and access the invitation link: Accept Invitation to [facility].Fill in the required julian to create your account. Sign into [email or web address] with your username and password that you created in the above steps to stay up to date. You can then view a summary of results, a summary of your visits, and the ability to download your summaries to your computer or send the information securely to a physician. Remember that your healthcare information is confidential, so carefully consider who you will allow to register on the [facility] Patient Portal for access to your information. You can also access the [facility] Patient Portal on the [email or web address] ifeanyi. Simply click on Health Records under Health Data and then click on the [employer] logo. HOW TO SAFELY DISPOSE OF PRESCRIPTION MEDICATIONS Please use one of the following methods to safely dispose of your unused medications. 1.Use a drug disposal kit: the drug disposal pouch allows you to safely discard your old and unused drugs. Ask your nurse to give you one when you are discharged.2.Visit a local take-back location: Many local pharmacies and police departments have programs that collect old and unwanted prescription drugs. Call your local pharmacy or go to http://CVRx.Lobster/5M9Gw0d to find one close to you.3.Make use of household items: Use cat litter or old coffee grounds to dispose medications if other options are not available. Mix your drugs with these household products, seal them in an airtight container and throw it into the garbage. Call [facility]: [phone] to be sure your drugs can be disposed of in this way. Some medicines may require a different approach.4.Never flush your medications down the toilet. IF YOU HAVE BEEN PRESCRIBED AN OPIOIDS FOR PAIN If you have been prescribed an opioid (such as hydrocodone, oxycodone or morphine), it is critical to understand the possible side effects and risks of opioid pain medications. Even when taken as directed, opioids can have several side effects including: Tolerance, meaning you might need to take more of a medication for the same pain relief. Nausea, vomiting and/or constipation. Sleepiness, dizziness, dry mouth, confusion, depression or itching. Physical dependence, meaning you have withdrawal symptoms when a medication is stopped ? this can develop within a few days. KNOW YOUR RESPONSIBILITIES It is important to know exactly how much and how often to take the opioid pain medications you are prescribed. Never take opioids in higher amounts or more often than prescribed. Do not combine opioids with alcohol or other drugs that cause drowsiness, such as benzodiazepines, also known as benzos, including diazepam and alprazolam, muscle relaxants or sleep aids. Never sell or share prescription opioids. This is illegal. Store opioids in a secure place and out of reach of others (including children, family, friends and visitors). The last page(s) of this document has been signed and retained as a CHART COPY Signatures Patient Education Materials Headache, Unspecified Medication Leaflets My discharge plan and instructions have been reviewed and explained to me and I,AALIYAH MALDONADO M understand my current condition and have read and understand these discharge instructions. I have received a written copy of the plan/instructions. If I have questions, I am aware that I should contact my doctor. Patient/Fingerprint Clerk Signature: Date/Time: Relationship to Patient: ____ Witness Name/Signature: Date/Time: [facility] 03-21-2022 Hospital Discharge instructions Patient Education 03/20/2022 23:48:48 Headache, Migraine, Classic Migraine Headache This often severe type of headache is different from other types of headaches in that symptoms other than pain occur with the headache. Nausea and vomiting, lightheadedness, sensitivity to light (photophobia), and other visual disturbances are common migraine symptoms. The pain may last from a few hours to several days. It is not clear why migraines occur but certain factors called triggers can raise the risk of having a migraine attack. A migraine may be triggered by emotional stress or depression, or by hormone changes during the menstrual cycle. Other triggers include control pills, overuse of migraine medicines, alcohol or caffeine, foods with tyramine (such as aged cheese and wine), eyestrain, weather changes, missed meals, or too little or too much sleep. Home care Follow these tips when taking care of yourself at home: Don t drive yourself home if you were given pain medicine for your headache or are having visual symptoms. Instead, have someone else drive you home. Try to sleep when you get home. You should feel much better when you wake up. Cold can help ease migraine symptoms. Put an ice pack on your forehead or at the base of your skull. Put heat on the back of your neck to help ease any neck spasm. Drink only clear liquids or eat a light diet until your symptoms get better. This will help you avoid nausea and vomiting. How to prevent migraines Pay attention to what seems to trigger your headache. Try to avoid the triggers when you can. If you have frequent headaches, consider keeping a headache diary. In it, write down what you were doing, feeling, or eating in the hours before each headache. Show this to your healthcare provider to help find the cause of your headaches. If stress seems to be a trigger for your headaches, figure out what is causing stress in your life. Learn new ways to handle your stress. Ideas include regular exercise, biofeedback, self-hypnosis, yoga, and meditation. Talk with your healthcare provider to find out more information about managing stress. Many books and digital media are also available on this subject. Tyramine is a substance found in many foods. It can trigger a migraine in some people. These foods contain tyramine: Chocolate Yogurt All cheeses, but especially aged cheeses Smoked or pickled fish and meat, including chavez, caviar, bologna, pepperoni, and salami Liver Avocados Bananas Figs Raisins Red wine Try staying away from these foods for 1 to 2 months to see if you have fewer headaches. How to treat future headaches Take time out at the first sign of a headache, if possible. Find a quiet, dark, comfortable place to sit or lie down. Let yourself relax or sleep. Put an ice pack on your forehead or on the area of greatest pain. A heating pad and massage may help if you are having a muscle spasm and tightness in your neck. If you have been prescribed a medicine to stop a migraine headache, use this at the first warning sign of the headache for best results. First signs may be an aura or pain. If you need to take medicine often for your migraine, talk with your healthcare provider about other ways to prevent your headaches. Follow-up care Follow up with your healthcare provider, or as advised. Talk with your provider if you have frequent headaches. He or she can figure out a treatment plan. Ask if you can have medicine to take at home the next time you get a bad headache. This may keep you from having to visit the emergency department in the future. You may need to see a headache specialist (neurologist) if you continue to have headaches. When to seek medical advice Call your healthcare provider right away if any of these occur: Your head pain gets worse, or doesn t get better within 24 hours You can t keep liquids down (repeated vomiting) Pain in your sinuses, ears, or throat Fever of 100.4 F (38 C) or higher, or as directed by your healthcare provider Stiff neck Extreme drowsiness, confusion, or fainting Dizziness, or dizziness with spinning sensation (vertigo) Weakness in an arm or leg, or on one side of your face Difficulty talking or seeing [id number] [employer]. [address] [place] [address]. All rights reserved. This information is not intended as a substitute for professional medical care. Always follow your healthcare professional's instructions. Follow Up Care 03/20/2022 21:57:03 With:ROSS FISHER MD, Surgery Address: [address] [place] [address]- When:2-4 days [facility] 03-20-2022 Note Discharge Instructions Thank you for allowing [facility] to assist you with your healthcare needs. The following is important discharge information regarding your hospital visit. Diagnosis from Today's Visit Migraine What to Do Next Instructions from Your Care Team No qualifying data available. Post Acute Orders No qualifying data available. You Need to Schedule the Following Appointments Follow Up with ROSS FISHER MD, Surgery When Within 2-4 days Where: [address] [place] [address]- Allergies azithromycin Medications Please ask your primary doctor or pharmacist before taking any other medication not listed, including over the counter drugs, herbal medications, vitamins and or supplements as they may interact with your home medications. What How Much When Why Instructions Last Dose New APAP/ butalbital/ caffeine (APAP/ butalbital/ caffeine 325-50-40 mg oral tablet (Fioricet)) 1 tab(s) by mouth Every 4 hours as needed for as needed Migraine Duration: 3 Days Printed Prescription Unchanged amphetamine-dextroamphetamine (amphetamine-dextroamphetamine 20 mg oral capsule, extended release) 1 cap by mouth Once a day (in the morning) Unchanged busPIRone (busPIRone 15 mg oral tablet) 1 tab(s) by mouth Three (3) times a day Unchanged clonazePAM (clonazePAM 0.5 mg oral tablet) 1 tab(s) by mouth Three (3) times a day Unchanged cyclobenzaprine (cyclobenzaprine 7.5 mg oral tablet) 1 tab(s) by mouth Three (3) times a day as needed for as needed for spasm Unchanged FLUoxetine (FLUoxetine 10 mg oral capsule) 1 cap by mouth Once a day Unchanged gabapentin (gabapentin 100 mg oral capsule) 2 cap by mouth Two (2) times a day Unchanged topiramate (Topamax 50 mg oral tablet) 1 tab(s) by mouth Two (2) times a day Please take this list to your next doctor s visit. Bring all medications you take, including over the counter medications, herbals and other supplements with you to your doctor s visit. Patients and families are reminded to discard old lists and to update any records with all medication providers or retail pharmacies. Education Materials Migraine Headache This often severe type of headache is different from other types of headaches in that symptoms other than pain occur with the headache. Nausea and vomiting, lightheadedness, sensitivity to light (photophobia), and other visual disturbances are common migraine symptoms. The pain may last from a few hours to several days. It is not clear why migraines occur but certain factors called triggers can raise the risk of having a migraine attack. A migraine may be triggered by emotional stress or depression, or by hormone changes during the menstrual cycle. Other triggers include control pills, overuse of migraine medicines, alcohol or caffeine, foods with tyramine (such as aged cheese and wine), eyestrain, weather changes, missed meals, or too little or too much sleep. Home care Follow these tips when taking care of yourself at home: Don t drive yourself home if you were given pain medicine for your headache or are having visual symptoms. Instead, have someone else drive you home. Try to sleep when you get home. You should feel much better when you wake up. Cold can help ease migraine symptoms. Put an ice pack on your forehead or at the base of your skull. Put heat on the back of your neck to help ease any neck spasm. Drink only clear liquids or eat a light diet until your symptoms get better. This will help you avoid nausea and vomiting. How to prevent migraines Pay attention to what seems to trigger your headache. Try to avoid the triggers when you can. If you have frequent headaches, consider keeping a headache diary. In it, write down what you were doing, feeling, or eating in the hours before each headache. Show this to your healthcare provider to help find the cause of your headaches. If stress seems to be a trigger for your headaches, figure out what is causing stress in your life. Learn new ways to handle your stress. Ideas include regular exercise, biofeedback, self-hypnosis, yoga, and meditation. Talk with your healthcare provider to find out more information about managing stress. Many books and digital media are also available on this subject. Tyramine is a substance found in many foods. It can trigger a migraine in some people. These foods contain tyramine: Chocolate Yogurt All cheeses, but especially aged cheeses Smoked or pickled fish and meat, including chavez, caviar, bologna, pepperoni, and salami Liver Avocados Bananas Figs Raisins Red wine Try staying away from these foods for 1 to 2 months to see if you have fewer headaches. How to treat future headaches Take time out at the first sign of a headache, if possible. Find a quiet, dark, comfortable place to sit or lie down. Let yourself relax or sleep. Put an ice pack on your forehead or on the area of greatest pain. A heating pad and massage may help if you are having a muscle spasm and tightness in your neck. If you have been prescribed a medicine to stop a migraine headache, use this at the first warning sign of the headache for best results. First signs may be an aura or pain. If you need to take medicine often for your migraine, talk with your healthcare provider about other ways to prevent your headaches. Follow-up care Follow up with your healthcare provider, or as advised. Talk with your provider if you have frequent headaches. He or she can figure out a treatment plan. Ask if you can have medicine to take at home the next time you get a bad headache. This may keep you from having to visit the emergency department in the future. You may need to see a headache specialist (neurologist) if you continue to have headaches. When to seek medical advice Call your healthcare provider right away if any of these occur: Your head pain gets worse, or doesn t get better within 24 hours You can t keep liquids down (repeated vomiting) Pain in your sinuses, ears, or throat Fever of 100.4 F (38 C) or higher, or as directed by your healthcare provider Stiff neck Extreme drowsiness, confusion, or fainting Dizziness, or dizziness with spinning sensation (vertigo) Weakness in an arm or leg, or on one side of your face Difficulty talking or seeing [id number] [employer]. [address] [place] [address], [place] [address]. All rights reserved. This information is not intended as a substitute for professional medical care. Always follow your healthcare professional's instructions. Additional Information VACCINATE! IT SAVES LIVES! Members of the community who have not yet received the COVID-19 vaccine and would like to receive it can visit one of [facility] vaccine clinics. There are many vaccine clinic locations within the [facility]. For locations and available times, please visit [email or web address]. It is important to note that some COVID mobile vaccine clinics are held outdoors and may be canceled in rainy or stormy conditions. To learn more about pediatric vaccinations (ages 5-11), we invite you to visit the [employer] [facility] webpage. [email or web address] To learn more about the COVID-19 vaccine, we invite you to visit the [facility] website for a list of frequently asked questions. [email or web address] [email or web address] [facility] Mobile Digital Patient Portal Access Instructions: Stay connected with your healthcare team and access your personal medical information anytime with the [facility] Patient Portal. If you would like a full copy of your medical records please contact the [facility] Medical Records Department Tuesday through Tuesday between 8a.m. and 4:30p.m. Please follow the directions below to access the portal: 1.Access the email account you provided upon registration to the hospital.2.Look for an invitation email from [facility].3.Open the email and access the invitation link: Accept Invitation to [facility]4.Fill in the required julian to create your account. Sign into [email or web address] with your username and password that you created in the above steps to stay up to date. You can then view a summary of results, a summary of your visits, and the ability to download your summaries to your computer or send the information securely to a physician. Remember that your healthcare information is confidential, so carefully consider who you will allow to register on the [facility] Patient Portal for access to your information. You can also access the [facility] Patient Portal on the MedTel.com ifeanyi. Simply click on Health Records under Health Data and then click on the [employer] logo. HOW TO SAFELY DISPOSE OF PRESCRIPTION MEDICATIONS Please use one of the following methods to safely dispose of your unused medications. 1.Use a drug disposal kit: the drug disposal pouch allows you to safely discard your old and unused drugs. Ask your nurse to give you one when you are discharged.2.Visit a local take-back location: Many local pharmacies and police departments have programs that collect old and unwanted prescription drugs. Call your local pharmacy or go to http://CVRx.Lobster/5A7Za0q to find one close to you.3.Make use of household items: Use cat litter or old coffee grounds to dispose medications if other options are not available. Mix your drugs with these household products, seal them in an airtight container and throw it into the garbage. Call [facility]: [phone] to be sure your drugs can be disposed of in this way. Some medicines may require a different approach.4.Never flush your medications down the toilet. IF YOU HAVE BEEN PRESCRIBED AN OPIOIDS FOR PAIN If you have been prescribed an opioid (such as hydrocodone, oxycodone or morphine), it is critical to understand the possible side effects and risks of opioid pain medications. Even when taken as directed, opioids can have several side effects including: Tolerance, meaning you might need to take more of a medication for the same pain relief. Nausea, vomiting and/or constipation. Sleepiness, dizziness, dry mouth, confusion, depression or itching. Physical dependence, meaning you have withdrawal symptoms when a medication is stopped ? this can develop within a few days. KNOW YOUR RESPONSIBILITIES It is important to know exactly how much and how often to take the opioid pain medications you are prescribed. Never take opioids in higher amounts or more often than prescribed. Do not combine opioids with alcohol or other drugs that cause drowsiness, such as benzodiazepines, also known as benzos, including diazepam and alprazolam, muscle relaxants or sleep aids. Never sell or share prescription opioids. This is illegal. Store opioids in a secure place and out of reach of others (including children, family, friends and visitors). The last page(s) of this document has been signed and retained as a CHART COPY Signatures Patient Education Materials Headache, Migraine, Classic Medication Leaflets My discharge plan and instructions have been reviewed and explained to me and I,AALIYAH MALDONADO M understand my current condition and have read and understand these discharge instructions. I have received a written copy of the plan/instructions. If I have questions, I am aware that I should contact my doctor. Patient/Fingerprint Clerk Signature: Date/Time: Relationship to Patient: ____ Witness Name/Signature: Date/Time: [facility] 02-07-2022 Hospital Discharge instructions Patient Education 02/06/2022 22:29:17 HEADACHE, Migraine (Classical) Migraine Headache Migraine headaches are caused by changes in blood flow to the brain. This causes throbbing or constant pain on one or both sides of your head. The pain may last from a few hours to several days. You usually will have nausea, vomiting, sensitivity to light and sound, and blurred vision. A migraine may be triggered by emotional stress or depression, or by hormone changes during the menstrual cycle. Other triggers include control pills, overuse of migraine medicines, alcohol or caffeine, foods with tyramine, eye strain, weather changes, missed meals, or too little or too much sleep. Home care Follow these tips when taking care of yourself at home: Don t drive yourself home if you were given pain medicine for your headache. Instead, have someone else drive you home. Try to sleep when you get home. You should feel much better when you wake up. Cold can help ease migraine symptoms. Put an ice pack on your forehead or at the base of your skull. Put heat on the back of your neck to help ease any neck spasm. Drink only clear liquids or eat a light diet until your symptoms get better. This will help you avoid nausea and vomiting. How to prevent migraines Pay attention to what seems to trigger your headache. Try to avoid the triggers when you can. If you have frequent headaches, consider keeping a headache diary. In it, write down what you were doing, feeling, or eating in the hours before each headache. Show this to your health care provider to help find the cause of your headaches. If stress seems to be a trigger for your headaches, figure out what is causing stress in your life. Learn new ways to handle your stress. Ideas include regular exercise, biofeedback, self-hypnosis, and meditation. Talk with your health care provider to find out more information about managing stress. Many books and digital media are also available on this subject. Tyramine is a substance found in many foods. It can trigger a migraine in some people. These foods contain tyramine: Chocolate Yogurt All cheeses but cottage cheese and cream cheese Smoked or pickled fish and meat, including chavez, caviar, bologna, pepperoni, and salami Liver Avocados Bananas Figs Raisins Red wine Try staying away from these foods for 1 to 2 months to see if you have fewer headaches. How to treat future headaches Take time out at the first sign of a headache, if possible. Find a quiet, dark, comfortable place to sit or lie down. Let yourself relax or sleep. Put an ice pack on your forehead or on the area of greatest pain. A heating pad and massage may help if you are having a muscle spasm and tightness in your neck. If you have been prescribed a medicine to stop a migraine headache, use this at the first warning sign of the headache for best results. First signs may be an aura or pain. If you need to take medicine often for your migraine, talk with your health care provider about other ways to prevent your headaches. Follow-up care Follow up with your health care provider if your headache doesn t get better within the next 24 hours. Talk with your provider if you have frequent headaches. He or she can figure out a treatment plan. Ask if you can have medicine to take at home the next time you get a bad headache. This may keep you from having to visit the emergency department in the future. You may need to see a headache specialist (neurologist) if you continue to have headaches. When to seek medical advice Call your health care provider right away if any of these occur: Your head pain gets worse, or doesn t get better within 24 hours You can t keep liquids down (repeated vomiting) Pain in your sinuses, ears, or throat Fever of 100.4 F (38 C) or higher, or as directed by your health care provider Stiff neck Extreme drowsiness, confusion, or fainting Dizziness, or dizziness with spinning sensation (vertigo) Weakness in an arm or leg, or on one side of your face Difficulty talking or seeing [id number] [employer] [place] [address]. All rights reserved. This information is not intended as a substitute for professional medical care. Always follow your healthcare professional's instructions. Follow Up Care 02/06/2022 21:46:29 With:ROSS FISHER MD, Surgery Address: [address] [place] [address]- When:2-4 days [facility] 11-27-2021 Hospital Discharge instructions Patient Education 11/26/2021 23:18:37 Headache, Migraine, Classic Migraine Headache This often severe type of headache is different from other types of headaches in that symptoms other than pain occur with the headache. Nausea and vomiting, lightheadedness, sensitivity to light (photophobia), and other visual disturbances are common migraine symptoms. The pain may last from a few hours to several days. It is not clear why migraines occur but certain factors called triggers can raise the risk of having a migraine attack. A migraine may be triggered by emotional stress or depression, or by hormone changes during the menstrual cycle. Other triggers include control pills, overuse of migraine medicines, alcohol or caffeine, foods with tyramine (such as aged cheese and wine), eyestrain, weather changes, missed meals, or too little or too much sleep. Home care Follow these tips when taking care of yourself at home: Don t drive yourself home if you were given pain medicine for your headache or are having visual symptoms. Instead, have someone else drive you home. Try to sleep when you get home. You should feel much better when you wake up. Cold can help ease migraine symptoms. Put an ice pack on your forehead or at the base of your skull. Put heat on the back of your neck to help ease any neck spasm. Drink only clear liquids or eat a light diet until your symptoms get better. This will help you avoid nausea and vomiting. How to prevent migraines Pay attention to what seems to trigger your headache. Try to avoid the triggers when you can. If you have frequent headaches, consider keeping a headache diary. In it, write down what you were doing, feeling, or eating in the hours before each headache. Show this to your healthcare provider to help find the cause of your headaches. If stress seems to be a trigger for your headaches, figure out what is causing stress in your life. Learn new ways to handle your stress. Ideas include regular exercise, biofeedback, self-hypnosis, yoga, and meditation. Talk with your healthcare provider to find out more information about managing stress. Many books and digital media are also available on this subject. Tyramine is a substance found in many foods. It can trigger a migraine in some people. These foods contain tyramine: Chocolate Yogurt All cheeses, but especially aged cheeses Smoked or pickled fish and meat, including chavez, caviar, bologna, pepperoni, and salami Liver Avocados Bananas Figs Raisins Red wine Try staying away from these foods for 1 to 2 months to see if you have fewer headaches. How to treat future headaches Take time out at the first sign of a headache, if possible. Find a quiet, dark, comfortable place to sit or lie down. Let yourself relax or sleep. Put an ice pack on your forehead or on the area of greatest pain. A heating pad and massage may help if you are having a muscle spasm and tightness in your neck. If you have been prescribed a medicine to stop a migraine headache, use this at the first warning sign of the headache for best results. First signs may be an aura or pain. If you need to take medicine often for your migraine, talk with your healthcare provider about other ways to prevent your headaches. Follow-up care Follow up with your healthcare provider, or as advised. Talk with your provider if you have frequent headaches. He or she can figure out a treatment plan. Ask if you can have medicine to take at home the next time you get a bad headache. This may keep you from having to visit the emergency department in the future. You may need to see a headache specialist (neurologist) if you continue to have headaches. When to seek medical advice Call your healthcare provider right away if any of these occur: Your head pain gets worse, or doesn t get better within 24 hours You can t keep liquids down (repeated vomiting) Pain in your sinuses, ears, or throat Fever of 100.4 F (38 C) or higher, or as directed by your healthcare provider Stiff neck Extreme drowsiness, confusion, or fainting Dizziness, or dizziness with spinning sensation (vertigo) Weakness in an arm or leg, or on one side of your face Difficulty talking or seeing [id number] [employer]. [address] [place] [address], [place] [address]. All rights reserved. This information is not intended as a substitute for professional medical care. Always follow your healthcare professional's instructions. 11/26/2021 23:18:33 Self-Care for Headaches Self-Care for Headaches Most headaches aren't serious and can be relieved with self-care. But some headaches may be a sign of another health problem like eye trouble or high blood pressure. To find the best treatment, learn what kind of headaches you get. For tension headaches, self-care will usually help. To treat migraines, ask your healthcare provider for advice. It is also possible to get both tension and migraine headaches. Self-care involves relieving the pain and avoiding headache triggers if you can. Ways to reduce pain and tension Try these steps: Apply a cold compress or ice pack to the pain site. Drink fluids. If nausea makes it hard to drink, try sucking on ice. Rest. Protect yourself from bright light and loud noises. Calm your emotions by imagining a peaceful scene. Massage tight neck, shoulder, and head muscles. To relax muscles, soak in a hot bath or use a hot shower. Use medicines Aspirin or other smfc-ike-kkddzpc pain medicines, such as ibuprofen and acetaminophen, can relieve headache. Remember: Never give aspirin to anyone 18 years old or younger because of the risk of developing Jeison syndrome. Use pain medicines only when needed. Certain prescription medicines, if taken too often, can lead to rebound headaches. Check with your healthcare provider or pharmacist about your medicines. Track your headaches Keeping a headache diary can help you and your healthcare provider identify what's causing your headaches: Note when each headache happens. Identify your activities and the foods you've eaten 6 to 8 hours before the headache began. Look for any trends or triggers. Signs of tension headache Any of the following can be signs: Dull pain or feeling of pressure in a tight band around your head Pain in your neck or shoulders Headache without a definite beginning or end Headache after an activity such as driving or working on a computer Signs of migraine Any of the following can be signs: Throbbing pain on one or both sides of your head Nausea or vomiting Extreme sensitivity to light, sound, and smells Bright spots, flashes, or other visual changes Pain or nausea so severe that you can't continue your daily activities Call your healthcare provider If you have any of the following symptoms, contact your healthcare provider: A headache that lingers after a recent injury or bump to the head. A fever with a stiff neck or pain when you bend your head toward your chest. A headache along with slurred speech, changes in your vision, or numbness or weakness in your arms or legs. A headache for longer than 3 days. Frequent headaches, especially in the morning. Headaches with seizures Seek immediate medical attention if you have a headache that you would call the worst headache you have ever had. [id number] [employer]. [address] [place] [address]. All rights reserved. This information is not intended as a substitute for professional medical care. Always follow your healthcare professional's instructions. Follow Up Care 11/26/2021 22:29:06 With:ROSS FISHER MD, Surgery Address: [address] [place] [id number]- When:2-4 days [facility] 06-28-2021 Hospital Discharge instructions Patient Education 06/28/2021 20:30:14 Constipation (Child) Constipation (Child) Bowel movement patterns vary in children. A child around age 2 will have about 2 bowel movements per day. After 4 years of age, a child may have 1 bowel movement per day. A normal stool is soft and easy to pass. But sometimes stools become firm or hard. They are difficult to pass. They may pass less often. This is called constipation. It is common in children. Each child's bowel habits are a little different. What seems like constipation in one child may be normal in another. Symptoms of constipation can include: Abdominal pain Refusal to eat Bloating Vomiting Problems holding in urine or stool Stool in your child's underwear Painful bowel movements Itching, swelling, or pain around the anus Any behavior that looks like the child is trying to hold stool in, such as standing on toes, holding in abdominal muscles, or dance like behaviors Sometimes streaks of blood can occur in the stool, usually due to an anal fissure. This is a tearing of the anal lining caused by straining with constipation. However, any blood in the stool needs to be evaluated by your child's doctor. Constipation can have many causes, such as: Eating a diet low in fiber Not drinking enough liquids Lack of exercise or physical activity Stress or changes in routine Frequent use or misuse of laxatives Ignoring the urge to have a bowel movement or delaying bowel movements Medicines such as prescription pain medicine, iron, antacids, certain antidepressants, and calcium supplements Less commonly, bowel blockage and bowel inflammation Spinal disorders Thyroid problems Celiac disease Simple constipation is easy to stop once the cause is known. Healthcare providers may not do any tests to diagnose constipation. Home care Your child s healthcare provider may prescribe a bowel stimulant, lubricant, or suppository. Your child may also need an enema or a laxative. Follow all instructions on how and when to use these products. Food, drink, and habit changes You can help treat and prevent your child s constipation with some simple changes in diet and habits. Make changes in your child s diet, such as: Talk with your child's doctor about his or her milk intake. In children who don't respond to other conservative measures, your healthcare provider may advise stopping cow's milk for 2 weeks to see if symptoms improve. If symptoms improve during this trial, you may switch to a non-dairy form of milk. This is likely a form of milk allergy rather than true constipation. Increase fiber in your child s diet. You can do this by adding fruits, vegetables, cereals, and grains. Make sure your child eats less meat and processed foods. Make sure your child drinks plenty of water. Certain fruit juices such as pear, prune, and apple can be helpful. However, fruit juices are full of sugar. The Academy of Pediatrics recommends no juice for children under 1 year of age. Children age 1 to 3 should have no more than 4 ounces of juice per day. Children 4 to 6 should have no more than 4 to 6 ounces of juice per day. Children 7 to 18 should have no more than 8 ounces of 1 cup of juice per day. Be patient and make diet changes over time. Most children can be fussy about food. Help your child have good toilet habits. Make sure to: Teach your child not wait to have a bowel movement. Have your child sit on the toilet for 10 minutes at the same time each day. It is helpful to have your child sit after each meal. This helps to create a routine. Give your child a comfortable child s toilet seat and a footstool. You can read or keep your [employer] to make it a positive experience. Follow-up care Follow up with your child s healthcare provider. Special note to parents Learn to be familiar with your child s normal bowel pattern. Note the color, form, and frequency of stools. When to seek medical advice Call your child s healthcare provider right away if any of these occur: Abdominal pain that gets worse Fussiness or crying that can t be soothed Refusal to drink or eat Blood in stool Black, tarry stool Constipation that does not get better Weight loss Your child has a fever (see Children and fever, below) Fever and children Always use a digital thermometer to check your child s temperature. Never use a mercury thermometer. For infants and toddlers, be sure to use a rectal thermometer correctly. A rectal thermometer may accidentally poke a hole in (perforate) the rectum. It may also pass on germs from the stool. Always follow the product maker s directions for proper use. If you don t feel comfortable taking a rectal temperature, use another method. When you talk to your child s healthcare provider, tell him or her which method you used to take your child s temperature. Here are guidelines for fever temperature. Ear temperatures aren t accurate before 6 months of age. Don t take an oral temperature until your child is at least 4 years old. under 3 months old: Ask your child s healthcare provider how you should take the temperature. Rectal or forehead (temporal artery) temperature of 100.4 F (38 C) or higher, or as directed by the provider Armpit temperature of 99 F (37.2 C) or higher, or as directed by the provider Child age 3 to 36 months: Rectal, forehead (temporal artery), or ear temperature of 102 F (38.9 C) or higher, or as directed by the provider Armpit temperature of 101 F (38.3 C) or higher, or as directed by the provider Child of any age: Repeated temperature of 104 F (40 C) or higher, or as directed by the provider Fever that lasts more than 24 hours in a child under 2 years old. Or a fever that lasts for 3 days in a child 2 years or older. 8963-5499 [employer]. [address] [place] [address], [place] [address]. All rights reserved. This information is not intended as a substitute for professional medical care. Always follow your healthcare professional's instructions. 06/28/2021 20:30:14 Abdominal Pain, Unknown Cause, (Female) Unknown Causes of Abdominal Pain (Female) The exact cause of your belly (abdominal) pain is not clear. This does not mean that this is something to worry about. Everyone likes to know the exact cause of the problem. But sometimes with belly pain, there is no clear-cut cause, and this could be a good thing. The good news is that your symptoms can be treated, and you will feel better. Your condition does not seem serious now. But sometimes the signs of a serious problem may take more time to appear. For this reason, it is important for you to watch for any new symptoms, problems, or worsening of your condition. Over the next few days, the abdominal pain may come and go. Or it may be constant. Other common symptoms can include nausea and vomiting. Sometimes it can be difficult to tell if you feel nauseous. You may just feel bad and not connect that feeling to nausea. Constipation, diarrhea, and a fever may go along with the pain. The pain may continue even if treated correctly over the following days. Depending on how things go, sometimes the cause can become clear and may need more or different treatment. Additional evaluations, medicines, or tests may also be needed. Home care Your healthcare provider may prescribe medicine for pain, symptoms, or an infection. Follow the healthcare provider's instructions for taking these medicines. General care Rest as much as you can until your next exam. No strenuous activities. Try to find positions that ease discomfort. A small pillow placed on the abdomen may help relieve pain. Something warm on your abdomen (such as a heating pad) may help, but be careful not to burn yourself. Diet Don t force yourself to eat, especially if having cramps, vomiting, or diarrhea. Water is important so you don't get dehydrated. Soup may also be good. Sports drinks may also help, especially if they are not too acidic. Don't drink sugary drinks as this can make things worse. Take liquids in small amounts. Don t guzzle them. Caffeine sometimes makes the pain and cramping worse. Don t take dairy products if you have vomiting or diarrhea. Don't eat large amounts at a time. Wait a few minutes between bites. Eat a diet low in fiber (called a low-residue diet). Foods allowed include refined breads, white rice, fruit and vegetable juices without pulp, tender meats. These foods will pass more easily through the intestine. Don t have whole-grain foods, whole fruits and vegetables, meats, seeds and nuts, fried or fatty foods, dairy, alcohol and spicy foods until your symptoms go away. Follow-up care Follow up with your healthcare provider, or as advised, if your pain does not begin to improve in the next 24 hours. Call 911 Call 911 if any of these occur: Trouble breathing Confusion Fainting or loss of consciousness Rapid heart rate Seizure When to seek medical advice Call your healthcare provider right away if any of these occur: Pain gets worse or moves to the right lower abdomen New or worsening vomiting or diarrhea Swelling of the abdomen Unable to pass stool for more than 3 days Fever of 100.4 F (38 C) or higher, or as directed by your healthcare provider. Blood in vomit or bowel movements (dark red or black color) Yellow color of eyes and skin (jaundice) Weakness, dizziness Chest, arm, back, neck, or jaw pain Unexpected vaginal bleeding or missed period Can't keep down liquids or water and you are getting dehydrated [id number] [employer]. [address] [place] [address], [place] [address]. All rights reserved. This information is not intended as a substitute for professional medical care. Always follow your healthcare professional's instructions. Follow Up Care 06/28/2021 19:59:29 With:ROSS FISHER Address: [address] [place] [address]- Business (1) When:2-4 days Comments:Drink plenty of water, use MiraLAX twice a day for the next few days until good bowel movement, use suppositories daily, eat high-fiber foods such as whole fruits vegetables, whole grains, light exercise will be helpful as well, return or follow-up with your doctor if worsening or concerning symptoms [facility] documented as of this encounter (statuses as of 05/01/2022) [address] History of Past illness Narrative* Problem Noted Date Resolved Date 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 Abdominal pain, unspecified site 06/15/2007 09/29/2011 Other congenital anomaly of lower limb, 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 09/29/2011 documented as of this encounter (statuses as of 07/16/2022) [address] History of Past illness Narrative* Problem Noted Date Resolved Date 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 Abdominal pain, unspecified site 06/15/2007 09/29/2011 Other congenital anomaly of lower limb, 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 09/29/2011 documented as of this encounter (statuses as of 07/21/2022) [address] History of Past illness Narrative* Problem Noted Date Resolved Date 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 Abdominal pain, unspecified site 06/15/2007 09/29/2011 Other congenital anomaly of lower limb, 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 09/29/2011 documented as of this encounter (statuses as of 07/21/2022) [address] History of Past illness Narrative* Problem Noted Date Resolved Date 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 Abdominal pain, unspecified site 06/15/2007 09/29/2011 Other congenital anomaly of lower limb, 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 09/29/2011 documented as of this encounter (statuses as of 07/23/2022) [address] History of Past illness Narrative* Problem Noted Date Resolved Date 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 Abdominal pain, unspecified site 06/15/2007 09/29/2011 Other congenital anomaly of lower limb, 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 09/29/2011 documented as of this encounter (statuses as of 07/23/2022) [address] History of Past illness Narrative* Problem Noted Date Resolved Date 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 Abdominal pain, unspecified site 06/15/2007 09/29/2011 Other congenital anomaly of lower limb, 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 09/29/2011 documented as of this encounter (statuses as of 07/27/2022) [address] History of Past illness Narrative* Problem Noted Date Resolved Date 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 Abdominal pain, unspecified site 06/15/2007 09/29/2011 Other congenital anomaly of lower limb, 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 09/29/2011 documented as of this encounter (statuses as of 07/31/2022) [address] History of Past illness Narrative* Problem Noted Date Resolved Date 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 Abdominal pain, unspecified site 06/15/2007 09/29/2011 Other congenital anomaly of lower limb, 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 09/29/2011 documented as of this encounter (statuses as of 08/02/2022) [address] History of Past illness Narrative* Problem Noted Date Resolved Date 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 Abdominal pain, unspecified site 06/15/2007 09/29/2011 Other congenital anomaly of lower limb, 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 09/29/2011 documented as of this encounter (statuses as of 08/04/2022) [address] History of Past illness Narrative* Problem Noted Date Resolved Date 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 No data available for this section [facility] Evaluation + Plan note Future Appointments Appointment Date:07/17/2022 08:00:00 AM Scheduled Provider: Location:[facility] Appointment Type:MRI Brain w/o Contrast Diagnostic Tests Pending * Urine Culture 07/16/22 Future Scheduled Tests Radiology* MRI Brain w/o Contrast 07/17/22 [facility] [email or web address] note* Diagnosis Bacterial sinusitis- Primary Unspecified sinusitis (chronic) documented in this encounter [facility] note* Diagnosis Dysuria- Primary Acute pyelonephritis Acute pyelonephritis without lesion of renal medullary necrosis [facility] Diagnosis Gastroesophageal reflux disease, unspecified whether esophagitis present- Primary RUQ abdominal pain Abdominal pain, right upper quadrant Dehydration Diarrhea, unspecified type Hiatal hernia Diaphragmatic hernia without mention of obstruction or gangrene Headaches [facility]* Diagnosis Gastroesophageal reflux disease, unspecified whether esophagitis present- Primary [facility]* Diagnosis Preop examination- Primary Preoperative examination, unspecified documented in this encounter [facility] note* Diagnosis Gastroesophageal reflux disease, unspecified whether esophagitis present documented in this encounter [facility] note* Diagnosis Gastroesophageal reflux disease, unspecified whether esophagitis present- Primary [facility] Diagnosis Gastroesophageal reflux disease, unspecified whether esophagitis present [facility] Diagnosis Migraine without aura, not intractable, with status migrainosus- Primary [facility] Diagnosis Migraine without aura, intractable, without status migrainosus- Primary [facility] No data available for this section [facility] Diagnostic Procedure Only (Routine) - Authorized Specialty Diagnoses / Procedures Referred By Kevin cannon Referred To Contact XR IMAGING Diagnoses Gastroesophageal reflux disease, unspecified whether esophagitis present Procedures XR ESOPHAGRAM RADIOLOGIC EXAM ESOPHAGUS SINGLE CONTRAST STUDY Greg Robles MD [address] [employer] [address] [place] [address] Xr Imaging Referral ID Status Reason Start Date Expiration Date Visits Requested Visits Authorized [id number] Authorized Auto-Generat ed Referral 07/23/2022 08/22/2023 1 1 * Outpatient Procedure (Routine) - Pending Review Specialty Diagnoses / Procedures Referred By Kevin cannon Referred To Contact [facility] Diagnoses Gastroesophageal reflux disease, unspecified whether esophagitis present Procedures EGD DIAGNOSTIC ESOPHAGOGASTRODUODENOSC OPY TRANSORAL DIAGNOSTIC Greg Robles MD [address] [employer] [address] [place] [address] [facility] [address] [place] [address] Referral ID Status Reason Start Date Expiration Date Visits Requested Visits Authorized [id number] Pending Review Auto-Generat ed Referral 07/23/2022 07/23/2023 1 1 [facility] for referral (narrative)* Outpatient Procedure (Routine) - Closed Specialty Diagnoses / Procedures Referred By Kevin cannon Referred To Contact [facility] Diagnoses Gastroesophageal reflux disease, unspecified whether esophagitis present Procedures EGD DIAGNOSTIC ESOPHAGOGASTRODUODENOSC OPY TRANSORAL DIAGNOSTIC Greg Robles MD [address] [place] [address] [place] [phone] Referral ID Status Reason Start Date Expiration Date V isits Requested Visits Authorized [id number] Closed Auto-Generate d Referral 07/23/2022 07/23/2023 1 1 [facility] for referral (narrative)* Outpatient Procedure (Routine) - Pending Review Specialty Diagnoses / Procedures Referred By Kevin cannon Referred To Contact [facility] Diagnoses Gastroesophageal reflux disease, unspecified whether esophagitis present Procedures EGD DIAGNOSTIC ESOPHAGOGASTRODUODENOSC OPY TRANSORAL DIAGNOSTIC Greg Robles MD [address] [place] [address] [place] [phone] Referral ID Status Reason Start Date Expiration Date Visits Requested Visits Authorized [id number] Pending Review Auto-Generat ed Referral 08/02/2023 1 1 [facility] for visit Narrative* Outpatient Procedure (Routine) - Closed Specialty Diagnoses / Procedures Referred By Kevin cannon Referred To Contact [facility] Diagnoses Gastroesophageal reflux disease, unspecified whether esophagitis present Procedures EGD DIAGNOSTIC ESOPHAGOGASTRODUODENOSC OPY TRANSORAL DIAGNOSTIC Greg Robles MD [address] [place] [address] [place] [id number] [place] [address] Referral ID Status Reason Start Date Expiration Date V isits Requested Visits Authorized [id number] Closed Auto-Generate d Referral 07/23/2022 07/23/2023 1 1 [facility] note* TAY Kunz: PERFORM Event Display: Patient Summary Documents Authored Date: [id number] [facility] Summary Purpose Family History No Family History Records Found Medical History Relation Name Comments Hypertension Father Other Father Parkinsonism Maternal Grandfather Mental Illness Maternal Grandmother Cancer Maternal Uncle Diabetes Mother Cancer Paternal Grandfather Hypertension Paternal Grandmother Other Paternal Grandmother Relation Name Status Comments Father Alive Maternal Grandfather Maternal Grandmother Maternal Uncle Mother Alive Paternal Grandfather Paternal Grandmother Alive Sister 2 adopted sibli ngs Advance Directives No Advanced Directives Records FoundLatest Code Status on File Code Status Date Activated Date Inactivated Comments Full Code 01/26/2020 4:23 PM Medications Administered Section Inactive Administered Medications - up to 3 most recent administrations Medication Order MAR Action Action Date Dose Rate Site diphenhydrAMINE 50 mg (BENADRYL) 50 mg, ORAL, NOW, 1 dose, On 08/15/22 at 1230 Given 08/15/2022 12:15 PM EST 50 mg Oral keTORolac 60 mg injection (TORADOL) 60 mg, INTRAMUSCULAR, ONCE, 1 dose, On 08/15/22 at 1230, Ketorolac (Toradol) is indicated for the short-term (up to 5 days) management of moderately severe acute pain. Continuation of ketorolac (Toradol) beyond 5 days increases the risk of developing serious adverse events. Please verify the duration of therapy for ketorolac (Toradol)., If ordered PRN for pain, patient/guardian may elect to receive this medication for higher pain levels INSTEAD of the opioid, if preferred: Yes Given 08/15/2022 12:17 PM EST 60 mg Buttocks, Right ondansetron orally disintegrating 4 mg tab(s) (ZOFRAN ODT) 4 mg, ORAL, ONCE, 1 dose, On 08/15/22 at 1230, Place tablet on tongue and allow to dissolve; do not chew. Open packaging using dry hands; do not push tablet through packaging. Given 08/15/2022 12:18 PM EST 4 mg Oral Additional Source Comments INFORMATION SOURCE (unrecogn ized section and content) DATE CREATED AUTHOR AUTHOR'S ORGANIZ ATION 09/06/2020 [employer] DATE CREATED AUTHOR AUTHOR'S ORGANIZ ATION 09/22/2021 [employer] DATE CREATED AUTHOR AUTHOR'S ORGANIZ ATION 07/22/2022 [employer] DATE CREATED AUTHOR AUTHOR'S ORGANIZ ATION 08/05/2022 [facility] [employer] DATE CREATED AUTHOR AUTHOR'S ORGANIZ ATION 08/07/2022 [facility] DATE CREATED AUTHOR AUTHOR'S ORGANIZ ATION 09/16/[address] 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/02 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 [employer] Relationship Specialty Start Date End Date Pedro Luis Hogan MD [address] [place] [address] PCP - General 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/02 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 [employer] Relationship Specialty Start Date End Date Pedro Luis Hogan MD [address] [place] [address] PCP - General 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/02 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 [employer] Relationship Specialty Start Date End Date Pedro Luis Hogan MD [address] [place] [address] PCP - General 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/02 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 [employer] Relationship Specialty Start Date End Date Pedro Luis Hogan MD [address] [place] [address] PCP - General 06/08/02 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 [employer] Relationship Specialty Start Date End Date Pedro Luis Hogan MD [address] [place] [address] PCP - General 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/02 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 [employer] Relationship Specialty Start Date End Date Pedro Luis Hogan MD [address] [place] [address] PCP - General 06/08/02 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 [employer] Relationship Specialty Start Date End Date Pedro Luis Hogan MD [address] [place] [address] PCP - General 06/08/02 Care Team (unrecognized sect ion and content) Personnel Name: ROSS FISHER MD Address: Address: [address] [place] [address]- Care Team Personnel Name: ROSS FISHER MD Med Service: Surgery Member Role: Primary Care Physician Address: Address: [address] [id number]- Care Team Related Persons Name: BIRO, QUEENIE Care Team Personnel Name: ROSS FISHER MD Member Role: Primary Care Physician Address: Address: [address] [place] [id number]- Name: KATIANA FLORENTINO DO Position: ED Physician Member Role: ED Physician Address: Address: [address] [place] [address] [facility] [address] Care Team Related Persons Name: BIRLauri, QUEENIE Care Team Personnel Name: ROSS FISHER MD Med Service: Surgery Member Role: Primary Care Physician Address: Address: [address] [place] [address]- Care Team Related Persons Name: BIRO, QUEENIE Care Team Personnel Name: ROSS FISHER MD Med Service: Surgery Member Role: Primary Care Physician Address: Address: [address] [place] [address]- Care Team Related Persons Name: BIRO, QUEENIE Care Team Personnel Name: ROSS FISHER MD Member Role: Primary Care Physician Address: Address: [address] [place] [id number]- Name: CATHERINE CORDOBA MD Position: ED Physician Member Role: ED Physician Address: Address: [facility] [address] [place] [id number]- Care Team Related Persons Name: BIRABI CarreonI Care Team Personnel Name: ROSS FISHER MD Member Role: Primary Care Physician Address: Address: [address] Name: Birgit Mccall RN Position: AO RN Member Role: RN Name: CLAUDIA SHANKS DO Position: ED Physician Member Role: ED Physician Address: Address: [facility] [address] [place] [id number] Care Team Related Persons Name: BIRO QUEENIE Care Team Personnel Name: ROSS FISHER MD Member Role: Primary Care Physician Address: Address: [address] [place] [address]- Name: TSERING MONTERO DO Position: ED Physician Member Role: ED Physician Address: Address: [address] [place] [address] Name: Anabel Cramer RN Position: AO RN Member Role: ED RN Care Team Related Persons Name: QUEENIE MALDONADO Care Team Personnel Name: ROSS FISHER MD Member Role: Primary Care Physician Address: Address: [address] [place] [id number] Name: PEDRO LUIS LUNDY MD Position: ED Physician Member Role: Attending Physician Address: Address: [address] [place] [address].[address] Care Team Related Persons Name: QUEENIE MALDONADO Source Comments (unrecognize d section and content) In the event this informatio n is protected by the Federal Confidentiality of Alcohol and Drug Abuse Patient Records regulations: The Federal rules restrict any use of the information to criminally investigate or prosecute any alcohol or drug abuse patient.[facility] the event this information is protected by the Federal Confidentiality of Alcohol and Drug Abuse Patient Records regulations: The Federal rules restrict any use of the information to criminally investigate or prosecute any alcohol or drug abuse patient.[facility] the event this information is protected by the Federal Confidentiality of Alcohol and Drug Abuse Patient Records regulations: The Federal rules restrict any use of the information to criminally investigate or prosecute any alcohol or drug abuse patient.[facility] the event this information is protected by the Federal Confidentiality of Alcohol and Drug Abuse Patient Records regulations: The Federal rules restrict any use of the information to criminally investigate or prosecute any alcohol or drug abuse patient.[facility] the event this information is protected by the Federal Confidentiality of Alcohol and Drug Abuse Patient Records regulations: The Federal rules restrict any use of the information to criminally investigate or prosecute any alcohol or drug abuse patient.[facility] the event this information is protected by the Federal Confidentiality of Alcohol and Drug Abuse Patient Records regulations: The Federal rules restrict any use of the information to criminally investigate or prosecute any alcohol or drug abuse patient.[facility] the event this information is protected by the Federal Confidentiality of Alcohol and Drug Abuse Patient Records regulations: The Federal rules restrict any use of the information to criminally investigate or prosecute any alcohol or drug abuse patient.[facility] the event this information is protected by the Federal Confidentiality of Alcohol and Drug Abuse Patient Records regulations: The Federal rules restrict any use of the information to criminally investigate or prosecute any alcohol or drug abuse patient.[facility] the event this information is protected by the Federal Confidentiality of Alcohol and Drug Abuse Patient Records regulations: The Federal rules restrict any use of the information to criminally investigate or prosecute any alcohol or drug abuse patient.[facility] the event this information is protected by the Federal Confidentiality of Alcohol and Drug Abuse Patient Records regulations: The Federal rules restrict any use of the information to criminally investigate or prosecute any alcohol or drug abuse patient.[facility] the event this information is protected by the Federal Confidentiality of Alcohol and Drug Abuse Patient Records regulations: The Federal rules restrict any use of the information to criminally investigate or prosecute any alcohol or drug abuse patient.[facility] the event this information is protected by the Federal Confidentiality of Alcohol and Drug Abuse Patient Records regulations: The Federal rules restrict any use of the information to criminally investigate or prosecute any alcohol or drug abuse patient.[facility] Reason for Visit (unrecogniz ed section and content) Reason Comments Dysuria Started Tuesday - with Urination, Fever 101, BAUER, Body Aches, Neck Pain, Emesis, Unable to keep fluids down today - No Meds - Has Rx for Zofran but has not taken any today Reason Comments Received Outside Medical Records Outside medical records Reason Comments Abdominal Pain Reason Comments Results Reason Comments Pre-Op Visit Reason Comments GERD Reason Comments Headache Migraine started las t night, history of migraines, nausea Reason Comments Nausea Headache Neck pain from migra ine, started yesterday FOR RECORDS PERTAINING TO PATIENTS WHO ARE OR HAVE BEEN ENROLLED IN A CHEMICAL DEPENDENCY/SUBSTANCEABUSE PROGRAM, SOME INFORMATION MAY BE OMITTED. This clinical summary was aggregated from multiple sources. Caution should be exercised in using it in the provision of clinical care. This summary normalizes information from multiple sources, and as a consequence, information in this document may materially change the coding, format and clinical context of patient data. In addition, data may be omitted in some cases. CLINICAL DECISIONS SHOULD BE BASED ON THE PRIMARY CLINICAL RECORDS. [facility] [employer] [facility]. provides no warranty or guarantee of the accuracy or completeness of information in this document.
== END 2023-08-11 04:04 | disposition home or self-care (01) ==
PROVIDERS: Emergency Provider Student in an Organized Health Care Education/Training Program; PCP Family Medicine; Visit Provider Student in an Organized Health Care Education/Training Program
DX: I88.0 Nonspecific mesenteric lymphadenitis (principal); K21.9 Gastro-esophageal reflux disease without esophagitis
CPT/HCPCS: 74176; 80053; 81001; 81025; 85025; 96372; 96374; 99283; A4216; J2405

== ENCOUNTER 2023-10-20 14:49 | Emergency (ER) | payer MEDICARE, MEDICAID, SELFPAY ==
[2023-10-20 14:50] VITALS: BP 130/83; PULSE 88; RESP 16; TEMP 36.2; O2SAT 97; BMI 42.5
--- NOTE | 2023-10-20 15:35 | EX.ED.DYSGE1 ---
HPI <PRATIBHA Saldivar - Last Filed: 10/20/23 20:39> History of Present Illness Chief Complaint: Syncope Narrative Narrative: 23-year-old female states she got out of the shower and was getting dressed when she felt lightheaded and her vision went black and she fell. She thinks she hit her head on the bathtub. She was out for less than a minute and was quickly back to baseline. No tongue bite or incontinence. She injured her left knee in the fall but is ambulatory. She states she has had similar syncopal episodes in the past and had a 24-hour EEG and were told they were nonepileptic seizures. She does report having 30 minutes of chest pain at rest this morning around 10 AM. She states she has had chest pain before from GERD. PFS <PRATIBHA Saldivar - Last Filed: 10/20/23 20:39> [facility] Medical History Allergic reaction (~10/22/22) Anxiety Anxiety Back pain Blackout Depression Gastric reflux GERD (gastroesophageal reflux disease) Hip abductor tendonitis History of hiatal hernia Injury of head and neck Migraine headache Migraines Non-smoker Seizures Wears glasses Home Medications Desogestrel-Ethinyl Estradiol [Apri 28 Day Tablet] 1 ea PO DAILY 11/03/18 [History Last Taken Unknown] acetaminophen 500 mg tablet 500 - 1,000 mg PO Q6H PRN PRN Headache 11/03/18 [History Last Taken Unknown] ybjscwd-rxztaitwmcsns-eldqsety 250 mg-250 mg-65 mg tablet (Headache Relief (KUF-kehwndfkrkja-lbqypsuu)) 1 ea PO BID PRN Headache 11/03/18 [History Last Taken Unknown] buspirone 15 mg tablet 15 mg PO BID Anxiety 11/03/18 [History Last Taken Unknown] ibuprofen 200 mg tablet 600 - 800 mg PO Q6H PRN PRN Pain 11/03/18 [History Last Taken Unknown] topiramate 50 mg tablet 100 mg PO BID 11/03/18 [History Last Taken Unknown] ondansetron 4 mg disintegrating tablet 4 mg PO Q8H PRN nausea and vomiting #10 tabs 07/19/22 [Rx Last Taken Unknown] pantoprazole 40 mg tablet,delayed release (Protonix) 40 mg PO DAILY #30 tabs 07/19/22 [Rx Last Taken Unknown] dextroamphetamine-amphetamine ER 20 mg 24hr capsule,extend release 20 mg PO DAILY 09/14/22 [History Last Taken Unknown] fluoxetine 40 mg capsule (Prozac) 40 mg PO DAILY 09/14/22 [History Last Taken Unknown] gabapentin 100 mg capsule 100 mg PO QHS 09/14/22 [History Last Taken Unknown] hydroxyzine pamoate 25 mg capsule 25 mg PO PRN PRN Anxiety 09/14/22 [History Last Taken Unknown] rimegepant 75 mg disintegrating tablet (Nurtec ODT) 75 mg PO PRN PRN MIGRAINES 09/14/22 [History Last Taken Unknown] acetaminophen 500 mg tablet (Tylenol Extra Strength) 1,000 mg (2 x 500 mg) PO Q6H PRN pain #20 tabs 08/11/23 [Rx Last Taken Unknown] ibuprofen 600 mg tablet 600 mg PO Q8H PRN PRN pain #20 TABLETS 08/11/23 [Rx Last Taken Unknown] ondansetron 4 mg disintegrating tablet 4 mg PO Q8H PRN PRN Nausea #14 tabs 08/11/23 [Rx Last Taken Unknown] buspirone 30 mg tablet 30 mg PO DAILY 10/20/23 [History Last Taken Unknown] meclizine 25 mg tablet 25 mg PO DAILY PRN dizziness 10/20/23 [History Last Taken Unknown] Allergy/AdvReac Type Severity Reaction Status Date / Time gluten Allergy Diarrhea Verified 10/20/23 14:50 azithromycin AdvReac Diarrhea Verified 10/20/23 14:50 Family History Mother Diabetes Cancer skin Thyroid disorder Father Diabetes Hypertension Surgical History History of cholecystectomy History of surgery on lower extremity Hx of tonsillectomy S/P cholecystectomy Social History Smoking Status: Never smoker alcohol intake: never ROS <PRATIBHA Saldivar - Last Filed: 10/20/23 20:39> ROS ED ROS Narrative Constitutional: Negative for fever, chills, malaise. CVS: Positive for chest pain, syncope. Respiratory: Negative for shortness of breath. GI: Negative for abdominal pain, nausea, vomiting. Neuro: Negative for headache, motor/sensory dysfunction. EXAM <PRATIBHA Saldivar - Last Filed: 10/20/23 20:39> Physical Exam Narrative Exam Narrative: CONST: Patient sitting in no acute distress. EYES: Normal inspection. PERRL, EOMI. ENT: Normal inspection, moist mucous membranes. NECK: Normal inspection. RESP: No respiratory distress, CTAB. CVS: Regular rate and rhythm, no murmur, no gallop. ABD: Soft and nontender, no guarding or rebound, nondistended. SKIN: Color normal, no rash, warm, dry, intact. EXTREMITIES: Normal appearance, full movement upper extremities, 2+ radial pulses. Tender over left tibial tuberosity. Full knee extension, negative anterior/posterior drawer and varus valgus stress. 2+ DP pulses. NEURO: Oriented x4. Normal finger-nose and rbjk-ut-hjwo. Normal gait. PSYCH: Normal affect. Const Vital Signs: 10/20/23 14:50 10/20/23 15:24 Temperature 97.1 F L Temperature Source Temporal Pulse Rate 88 Respiratory Rate 16 Respiratory Effort Normal Respiratory Pattern Normal Blood Pressure 130/83 H Blood Pressure Mean 98 Pulse Ox 97 Oxygen Delivery Method Room Air <Dr. Feliciano Lozada DO - Last Filed: 10/20/23 17:08> Physical Exam Const Vital Signs: 10/20/23 14:50 10/20/23 15:24 Temperature 97.1 F L Temperature Source Temporal Pulse Rate 88 Respiratory Rate 16 Respiratory Effort Normal Respiratory Pattern Normal Blood Pressure 130/83 H Blood Pressure Mean 98 Pulse Ox 97 Oxygen Delivery Method Room Air MDM <PRATIBHA Saldivar - Last Filed: 10/20/23 20:39> [facility] Narrative Medical decision making narrative: History gathered from: Patient and family Patient had a syncopal episode after getting out of the shower this morning. She injured her forehead and left knee. She is able to ambulate. After syncope she quickly returned to baseline. She has history of similar events. She states she had an episode of chest pain this morning which resolved and she has no pain currently. On exam she is awake and alert. Stable vital signs. GCS 15. No signs of head injury or basilar skull fracture. Neurologically intact. Normal cardiac pulmonary exam. Abdomen soft and nontender. She is moving all extremities. Mild bruising and tenderness over the left tibial tuberosity. CBC, BMP are unremarkable. EKG is sinus rhythm with no ischemic changes. Troponin is 4. test negative. Left knee x-ray shows no acute findings. Patient is able to ambulate and is asymptomatic. Since she has had episodes similar in the past I do not think she requires admission. May have been vasovagal; or she states she has had these episodes with psychogenic nonepileptic seizures. Patient was given return precautions and discharged in stable condition. I have personally performed a face to face assessment of the patient and have reviewed the KALEB Note. I performed a substantive portion of the visit including all aspects of the following. My conte findings include: History is 23-year-old female with a history of recurrent syncope was getting out of the shower today when she reports a syncopal episode. She fell forward striking the high forehead scalp and injuring her left knee. She notes pain inferior to the patella. She states she had some chest pain this morning which she states is abnormal for her. She states she cannot really describe it other than pain. She denies any current chest pain. 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 Exam is there is mild contusion and tenderness infrapatellar region on the left near the tibial tuberosity. Neurovascular intact. Heart regular without murmur. Normal neurologic exam with a GCS of 15. Medical Decison Making EKG appears unchanged. Basic blood work negative troponin negative (greater than 6 hours since onset of pain). Negative interpretation of the knee x-ray is no acute fracture. Patient is able to ambulate. I do not believe that she needs a head CT. She will follow-up with primary care as needed return if worsening or concerns. Conservative treatment for the knee contusion. Tylenol for headache. Lab Data Labs: Laboratory Results - last 24 hr 10/20/23 15:40 WBC 9.2 RBC 4.57 Hgb 13.7 Hct 40.6 MCV 88.8 MCH 30.0 MCHC 33.7 RDW Std Deviation 43.2 RDW Coeff of Billy 13.2 Plt Count 367 MPV 8.1 Immature Gran % (Auto) 0.400 Neut % (Auto) 60.7 Lymph % (Auto) 28.3 [place] % (Auto) 3.7 Eos % (Auto) 6.2 H Baso % (Auto) 0.7 Absolute Neuts (auto) 5.6 Absolute Lymphs (auto) 2.59 Nucleated RBC % 0 Sodium 140 Potassium 4.0 Chloride 106 Carbon Dioxide 26.0 Anion Gap 8 BUN 15 Creatinine 0.76 Estim Creat Clear Calc 153.92 Est GFR (MDRD) Af Amer 119 Est GFR (MDRD) Non-Af 99 BUN/Creatinine Ratio 19.8 Glucose 88 Calcium 8.8 Troponin I High Sens 4 Serum , Qual NEGATIVE Radiography Diagnostic Testing: Clinical Impression(s) from Imaging Studies Knee X-Ray 10/20/23 15:54 IMPRESSION: Mild narrowing of the medial compartment of the joint possibly due to prior trauma. . No acute fracture or other significant abnormality Electronically Signed: John Mullen MD at 16:08 EST Reading Location ID and State: [address] [place] [address] Tel , Service support , ED attending interpretation of left knee x-ray shows no fracture or dislocation. <Dr. Feliciano Lozada, DO - Last Filed: 10/20/23 17:08> [facility] Narrative Medical decision making narrative: I have personally performed a face to face assessment of the patient and have reviewed the KALEB Note. I performed a substantive portion of the visit including all aspects of the following. My conte findings include: History is 23-year-old female with a history of recurrent syncope was getting out of the shower today when she reports a syncopal episode. She fell forward striking the high forehead scalp and injuring her left knee. She notes pain inferior to the patella. She states she had some chest pain this morning which she states is abnormal for her. She states she cannot really describe it other than pain. She denies any current chest pain. 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 Exam is there is mild contusion and tenderness infrapatellar region on the left near the tibial tuberosity. Neurovascular intact. Heart regular without murmur. Normal neurologic exam with a GCS of 15. Medical Decison Making EKG appears unchanged. Basic blood work negative troponin negative (greater than 6 hours since onset of pain). Negative interpretation of the knee x-ray is no acute fracture. Patient is able to ambulate. I do not believe that she needs a head CT. She will follow-up with primary care as needed return if worsening or concerns. Conservative treatment for the knee contusion. Tylenol for headache. History & Record Review Discussion w/independent historian: Patient and Family Lab Data Attestation: I reviewed the patient's lab results. Labs: Laboratory Results - last 24 hr 10/20/23 15:40 WBC 9.2 RBC 4.57 Hgb 13.7 Hct 40.6 MCV 88.8 MCH 30.0 MCHC 33.7 RDW Std Deviation 43.2 RDW Coeff of Billy 13.2 Plt Count 367 MPV 8.1 Immature Gran % (Auto) 0.400 Neut % (Auto) 60.7 Lymph % (Auto) 28.3 [place] % (Auto) 3.7 Eos % (Auto) 6.2 H Baso % (Auto) 0.7 Absolute Neuts (auto) 5.6 Absolute Lymphs (auto) 2.59 Nucleated RBC % 0 Sodium 140 Potassium 4.0 Chloride 106 Carbon Dioxide 26.0 Anion Gap 8 BUN 15 Creatinine 0.76 Estim Creat Clear Calc 153.92 Est GFR (MDRD) Af Amer 119 Est GFR (MDRD) Non-Af 99 BUN/Creatinine Ratio 19.8 Glucose 88 Calcium 8.8 Troponin I High Sens 4 Serum , Qual NEGATIVE Radiography Diagnostic Testing: Clinical Impression(s) from Imaging Studies Knee X-Ray 10/20/23 15:54 IMPRESSION: Mild narrowing of the medial compartment of the joint possibly due to prior trauma. . No acute fracture or other significant abnormality Electronically Signed: John Mullen MD at 16:08 EST Reading Location ID and State: [facility] / [place] Tel , Service support , EKG Initial EKG: Attestation: I personally reviewed and interpreted this EKG as follows: Interpretation: Sinus Rhythm Comments: Normal sinus rhythm with a ventricular rate of 84 bpm Prior EKG tracings: available for review Prior: Unchanged Discharge Plan Triage Chief Complaint: Syncope Other Complaint: Lower Extremity Injury ED Midlevel Provider: Jessica Arriaga ED Provider: Feliciano Lozada Dx/Rx/DC Orders Clinical Impression: Syncope, Contusion of left knee Instructions: Causes of Syncope Prescriptions: No Action acetaminophen 500 MG tablet 500 - 1,000 mg PO Q6H PRN PRN (Reason: Headache) ibuprofen 200 MG tablet 600 - 800 mg PO Q6H PRN PRN (Reason: Pain) Headache Relief (XOA-wobo-xbx) 1 EACH tablet 1 ea PO BID PRN (Reason: Headache) buspirone 15 MG tablet 15 mg PO BID topiramate 50 MG tablet 100 mg PO BID Desogestrel-Ethinyl Estradiol [Apri 28 Day Tablet] 1 EACH tablet 1 ea PO DAILY ondansetron 4 mg tablet,disintegrating 4 mg PO Q8H PRN (Reason: nausea and vomiting) Qty: 10 0RF pantoprazole [Protonix] 40 mg tablet,delayed release (DR/EC) 40 mg PO DAILY Qty: 30 0RF fluoxetine [Prozac] 40 mg capsule 40 mg PO DAILY dextroamphetamine-amphetamine 20 mg capsule,extended release 24hr 20 mg PO DAILY gabapentin 100 mg capsule 100 mg PO QHS hydroxyzine pamoate 25 mg capsule 25 mg PO PRN PRN (Reason: Anxiety) Patient Comments: TAKE 1 CAPSULE BY MOUTH EVERY 4 HOURS NEEDED FOR ANXIETY, NOT TO EXCEED 3 DOSES IN A 24 HOUR PERIOD Nurtec ODT 75 mg tablet,disintegrating 75 mg PO PRN PRN (Reason: MIGRAINES) ondansetron 4 mg tablet,disintegrating 4 mg PO Q8H PRN PRN (Reason: Nausea) Qty: 14 0RF ibuprofen 600 mg tablet 600 mg PO Q8H PRN PRN (Reason: pain) Qty: 20 0RF acetaminophen [Tylenol Extra Strength] 500 mg tablet 1,000 mg PO Q6H PRN (Reason: pain) Qty: 20 0RF buspirone 30 mg tablet 30 mg PO DAILY meclizine 25 mg tablet 25 mg PO DAILY PRN (Reason: dizziness) Patient Comments: TAKE 1 TABLET BY MOUTH THREE TIMES DAILY FOR 5 DAYS Primary Care Provider: Fani Fisher Referrals: Fani Fisher MD [Primary Care Provider] - Activity Restrictions/Additional Instructions: Your screening labs look normal. Knee x-rays negative. Rest, ice, elevate the knee. Follow-up with your primary care doctor. Disposition Disposition: Home, Self Care Discharge Date/Time: 10/20/23 16:39
--- NOTE | 2023-10-20 15:54 | RAD_ITS ---
STUDY: X-RAY - LEFT KNEE REASON FOR EXAM: Female, 23 years old. pain TECHNIQUE: 4 view(s) of the knee. COMPARISON: None. FINDINGS: Normal visualized distal femur. Normal visualized proximal tibia and fibula. Normal proximal tibiofibular articulation. Mildly narrowed medial femorotibial compartment. Normal lateral femorotibial compartment. Normal patellofemoral articulation. The soft tissue structures are unremarkable. RAD/Knee 4 or More Views IMPRESSION: Mild narrowing of the medial compartment of the joint possibly due to prior trauma. . No acute fracture or other significant abnormality Electronically Signed: John Mullen MD at 16:08 EST ,
[2023-10-20 16:08] LABS: Absolute Lymphocyte Count 2.59 X10^3/uL (0.83-4.51); Absolute Neutrophil Count 5.6 X10^3/uL (2.0-7.7); Basophil# 0.06 X10^3/uL; Basophil% 0.7 % (0-1); Eosinophil# 0.57 X10^3/uL; Eosinophils% 6.2 % (0-5); Hematocrit 40.6 % (37-47); Hemoglobin 13.7 g/dL (12.0-15.0); Lymphocyte # 2.59 X10^3/ul (0.83-4.51); Lymphocyte % 28.3 % (19-41); Mean Corp Hgb Conc 33.7 g/dL (32-36); Mean Corpuscular Volume 88.8 fL (81-99); Mean Platelet Vol. 8.1 fl (6.2-12.0); Monocyte# 0.34 X10^3/uL; Monocyte% 3.7 % (0-10); NRBC Flagged by Analyzer 0 % (0-5); Neutrophil # 5.56 X10^3/uL (2.7-7.7); Neutrophil % 60.7 % (47-70); Platelet Count 367 K/mm3 (150-450); RBC Distribution Width CV 13.2 % (11.6-14.6); RBC Distribution Width SD 43.2 fl (35.1-43.9); Red Blood Count 4.57 M/mm3 (4.2-5.4); White Blood Count 9.2 K/mm3 (4.4-11.0)
[2023-10-20 16:17] LABS: Anion Gap 8 (5-15); BUN 15 mg/dL (7-18); BUN/Creat Ratio 19.8 RATIO (10-20); Calcium,Total 8.8 mg/dL (8.5-10.1); Chloride 106 mmol/L (98-107); Creatinine, Serum 0.76 mg/dL (0.55-1.02); EST Glomerular Filtration Rate 99 mL/min (>60); Est Glom Filt Rate - Afr Amer 119 mL/min (>60); Estimated Creatinine Clearance 153.92 ml/min; Glucose 88 mg/dL (74-106); Sodium Level 140 mmol/L (136-145); Troponin-I HS 4 pg/mL (3.0-54.0)
[2023-10-20 16:18] LABS: Internal QC Validated? YES +Cl - CLEAR BKGD; Pregnancy, Serum, hCG Quali. NEGATIVE Negative
== END 2023-10-20 16:39 | disposition home or self-care (01) ==
PROVIDERS: Physician Assistant; Emergency Provider Emergency Medicine; PCP Family Medicine; Visit Provider Emergency Medicine
DX: R55 Syncope and collapse (principal); S80.02XA Contusion of left knee, initial encounter; W01.198A Fall on same level from slipping, tripping and stumbling with subsequent striking against other object, initial encounter; Y93.E1 Activity, personal bathing and showering; Y92.012 Bathroom of single-family (private) house as the place of occurrence of the external cause; K21.9 Gastro-esophageal reflux disease without esophagitis; Z90.49 Acquired absence of other specified parts of digestive tract; R07.9 Chest pain, unspecified
CPT/HCPCS: 73564; 80048; 84484; 84703; 85025; 99285; A4216

== ENCOUNTER 2023-11-29 19:41 | Emergency (ER) | payer MEDICARE, MEDICAID, SELFPAY ==
[2023-11-29 19:43] VITALS: BP 132/94; PULSE 88; RESP 18; TEMP 35.9; O2SAT 96; BMI 42.4
--- NOTE | 2023-11-29 20:08 | EKG12_ITS ---
Test Reason : CP Blood Pressure : / mmHG Vent. Rate : 081 BPM Atrial Rate : 081 BPM P-R Int : 168 ms QRS Dur : 094 ms QT Int : 378 ms P-R-T Axes : 038 068 010 degrees QTc Int : 439 ms Normal sinus rhythm Nonspecific T wave abnormality Abnormal ECG Confirmed by BEVERLEY BERNARDO, ROSE ([id number]), manager editorial ASHOK MADDEN ([id number]) on 11/30/2023 9:19:10 AM Referred By: TIFFANIE Confirmed By:ROSE LOWERY MD
--- NOTE | 2023-11-29 20:15 | RAD_ITS ---
STUDY: X-RAY CHEST REASON FOR EXAM: Female, 23 years old. COUGH TECHNIQUE: Single AP portable view of the chest. COMPARISON: March 15, 2023 FINDINGS: There are monitoring devices. The lungs are clear and expanded. There is no demonstrated pleural abnormality. Normal size heart. Normal mediastinum and savannah. Normal visualized pulmonary arteries. Normal visualized aortic arch and descending thoracic aorta. Normal visualized thoracic spine. Normal visualized ribs, clavicles, and shoulders. There is no demonstrated abnormality of the visualized soft tissue structures of the upper abdomen. RAD/Chest 1 View (Portable) IMPRESSION: Normal x-ray examination of the chest. Electronically Signed: Bossman Velez MD at 21:29 EDT ,
[2023-11-29] MEDS: Aspirin 81 MG TAB.CHEW 324 MG PO (20:22)
[2023-11-29 20:39] LABS: Absolute Lymphocyte Count 3.27 X10^3/uL (0.83-4.51); Absolute Neutrophil Count 6.5 X10^3/uL (2.0-7.7); Basophil# 0.08 X10^3/uL; Basophil% 0.7 % (0-1); Eosinophil# 0.66 X10^3/uL; Hematocrit 41.1 % (37-47); Hemoglobin 13.7 g/dL (12.0-15.0); Lymphocyte # 3.27 X10^3/ul (0.83-4.51); Lymphocyte % 29.7 % (19-41); Mean Corp Hgb Conc 33.3 g/dL (32-36); Mean Corpuscular Hgb 29.7 pg (27.0-32.0); Mean Corpuscular Volume 89.2 fL (81-99); Mean Platelet Vol. 7.9 fl (6.2-12.0); Monocyte# 0.43 X10^3/uL; Monocyte% 3.9 % (0-10); NRBC Flagged by Analyzer 0 % (0-5); Neutrophil # 6.53 X10^3/uL (2.7-7.7); Neutrophil % 59.3 % (47-70); Platelet Count 376 K/mm3 (150-450); RBC Distribution Width CV 13.2 % (11.6-14.6); RBC Distribution Width SD 43.1 fl (35.1-43.9); Red Blood Count 4.61 M/mm3 (4.2-5.4)
[2023-11-29 20:56] LABS: Anion Gap 6 (5-15); BUN 15 mg/dL (7-18); Calcium,Total 8.3 mg/dL (8.5-10.1); Chloride 109 mmol/L (98-107); Creatinine, Serum 0.75 mg/dL (0.55-1.02); EST Glomerular Filtration Rate 100 mL/min (>60); Est Glom Filt Rate - Afr Amer 120 mL/min (>60); Estimated Creatinine Clearance 155.81 ml/min; Glucose 90 mg/dL (74-106); Potassium 3.7 mmol/L (3.5-5.1); Sodium Level 139 mmol/L (136-145); Troponin-I HS 4 pg/mL (3.0-54.0)
[2023-11-29 21:10] LABS: D-Dimer Quantitative (DVT/PE) 0.37 FEU/ug/m (0.27-0.49)
[2023-11-29] MEDS: Ketorolac 15 MG/ML Vial IV (21:44)
[2023-11-29 22:15] VITALS: BP 119/61; PULSE 79; RESP 22; O2SAT 100
--- NOTE | 2023-11-29 22:45 | EDS_ITS ---
HPI History of Present Illness Chief Complaint: Chest Pain Narrative Narrative: 23-year-old female presenting with chest pain. She states is left-sided and feels heavy. She has had it all day since she woke up. She has had this in the past. She has no cardiac history. No history of DVT/PE. She is on oral control. Patient denies fever, chills, cough. She denies any trauma. She does not feel short of breath. She does have a history of anxiety. [facility] Medical History Allergic reaction (~10/22/22) Anxiety Anxiety Back pain Blackout Depression Gastric reflux GERD (gastroesophageal reflux disease) Hip abductor tendonitis History of hiatal hernia Injury of head and neck Migraine headache Migraines Non-smoker Seizures Wears glasses Home Medications Desogestrel-Ethinyl Estradiol [Apri 28 Day Tablet] 1 ea PO DAILY 11/03/18 [History Last Taken Unknown] acetaminophen 500 mg tablet 500 - 1,000 mg PO Q6H PRN PRN Headache 11/03/18 [History Last Taken Unknown] gyywuza-bikqfbwrtimop-awapftla 250 mg-250 mg-65 mg tablet (Headache Relief (AHT-tassrptdhzog-tbsckbcu)) 1 ea PO BID PRN Headache 11/03/18 [History Last Taken Unknown] buspirone 15 mg tablet 15 mg PO BID Anxiety 11/03/18 [History Last Taken Unknown] ibuprofen 200 mg tablet 600 - 800 mg PO Q6H PRN PRN Pain 11/03/18 [History Last Taken Unknown] topiramate 50 mg tablet 100 mg PO BID 11/03/18 [History Last Taken Unknown] ondansetron 4 mg disintegrating tablet 4 mg PO Q8H PRN nausea and vomiting #10 tabs 07/19/22 [Rx Last Taken Unknown] pantoprazole 40 mg tablet,delayed release (Protonix) 40 mg PO DAILY #30 tabs 07/19/22 [Rx Last Taken Unknown] dextroamphetamine-amphetamine ER 20 mg 24hr capsule,extend release 20 mg PO DA GERALDINE 09/14/22 [History Last Taken Unknown] fluoxetine 40 mg capsule (Prozac) 40 mg PO DAILY 09/14/22 [History Last Taken Unknown] gabapentin 100 mg capsule 100 mg PO QHS 09/14/22 [History Last Taken Unknown] hydroxyzine pamoate 25 mg capsule 25 mg PO PRN PRN Anxiety 09/14/22 [History Last Taken Unknown] rimegepant 75 mg disintegrating tablet (Nurtec ODT) 75 mg PO PRN PRN MIGRAINES 09/14/22 [History Last Taken Unknown] acetaminophen 500 mg tablet (Tylenol Extra Strength) 1,000 mg (2 x 500 mg) PO Q6H PRN pain #20 tabs 08/11/23 [Rx Last Taken Unknown] ibuprofen 600 mg tablet 600 mg PO Q8H PRN PRN pain #20 TABLETS 08/11/23 [Rx Last Taken Unknown] ondansetron 4 mg disintegrating tablet 4 mg PO Q8H PRN PRN Nausea #14 tabs 08/11/23 [Rx Last Taken Unknown] buspirone 30 mg tablet 30 mg PO DAILY 10/20/23 [History Last Taken Unknown] meclizine 25 mg tablet 25 mg PO DAILY PRN dizziness 10/20/23 [History Last Taken Unknown] Allergy/AdvReac Type Severity Reaction Status Date / Time gluten Allergy Diarrhea Verified 11/29/23 19:43 azithromycin AdvReac Diarrhea Verified 11/29/23 19:43 Family History Mother Diabetes Cancer skin Thyroid disorder Father Diabetes Hypertension Surgical History History of cholecystectomy History of surgery on lower extremity Hx of tonsillectomy S/P cholecystectomy Social History Smoking Status: Never smoker alcohol intake: never ROS ROS ED Constitutional Constitutional ED: Denies chills, fever(s) or sweats Eyes Eyes: Denies blurry vision or change in vision ENT ENT ED: Denies ear pain or sore throat Cardiovascular Cardiovascular: Reports chest pain; Denies palpitations or racing heartbeat Respiratory/Chest Respiratory/Chest: Denies cough, dyspnea or sputum Gastrointestinal Gastrointestinal: Denies abdominal pain, constipation, diarrhea, nausea or vomiting Genitourinary Genitourinary ED: Denies dysuria, hematuria or urinary frequency Musculoskeletal Musculoskeletal: Denies arthralgias, myalgias or neck pain Integumentary Denies abscess, Abrasions or rash Neurologic Neurologic: Denies headache(s), paresthesias or weakness Psychiatric Psychiatric: Denies anxiety, depression, suicidal ideation or suicidal thoughts Endocrine Endocrinology: Denies polydipsia or polyuria EXAM Physical Exam Const Vital Signs: 11/29/23 19:43 11/29/23 19:56 11/29/23 20:31 Temperature 96.6 F L Temperature Source Temporal Pulse Rate 88 Respiratory Rate 18 Respiratory Effort Normal Non-Labored Blood Pressure 132/94 H Blood Pressure Mean 106 Pulse Ox 96 Oxygen Delivery Method Room Air Room Air 11/29/23 22:15 Temperature Temperature Source Pulse Rate 79 Respiratory Rate 22 H Respiratory Effort Blood Pressure 119/61 Blood Pressure Mean 80 Pulse Ox 100 Oxygen Delivery Method Room Air Positive well nourished General Appearance ED: NAD; Negative for pallor HEENT Reports moist mucous membranes Eyes PERRL and EOMs intact bilaterally Chest Wall inspection of chest normal Resp normal respiratory effort and clear to auscultation bilaterally Cardio regular rate and regular rhythm Neuro oriented x3 and CN's II-XII intact bilaterally Sensorium / Orientation: awake Motor Exam: strength 5/5 throughout Psych mental status grossly normal Skin General Skin Exam: Negative for jaundice or pallor Heart Score History: Slightly/Non-Suspicious ECG: Normal Age: </= 45 years Risk Factors: No Risk Factors Troponin: </= Normal Limit Score: 0 MDM MDM MDM Narrative Medical decision making narrative: Patient presented with chest pain which has been present all day. Differential includes anxiety, ACS, pneumonia, PE, pneumothorax, costochondritis. Patient medicated with Toradol. CBC obtained to assess white blood cell count, hemoglobin and platelets. BMP to assess renal function and electrolytes. High- sensitivity troponin EKG to assess for ischemia/dysrhythmia. Chest pain rule out pneumonia. D-dimer obtained to assess for PE. CBC, BMP normal. High- sensitivity troponin less 4. Since patient has been having pain all day and only she did delta troponin. D-dimer is negative. Patient counseled on all findings and she feels better after Toradol. Patient will be discharged home in stable condition. Impression: 1. Chest pain Lab Data Attestation: I reviewed the patient's lab results. Labs: Laboratory Results - last 24 hr 11/29/23 20:30 WBC 11.0 RBC 4.61 Hgb 13.7 Hct 41.1 MCV 89.2 MCH 29.7 MCHC 33.3 RDW Std Deviation 43.1 RDW Coeff of Billy 13.2 Plt Count 376 MPV 7.9 Immature Gran % (Auto) 0.400 Neut % (Auto) 59.3 Lymph % (Auto) 29.7 [place] % (Auto) 3.9 Eos % (Auto) 6.0 H Baso % (Auto) 0.7 Absolute Neuts (auto) 6.5 Absolute Lymphs (auto) 3.27 Nucleated RBC % 0 D-Dimer Quant (PE/DVT) 0.37 Sodium 139 Potassium 3.7 Chloride 109 H Carbon Dioxide 24.0 Anion Gap 6 BUN 15 Creatinine 0.75 Estim Creat Clear Calc 155.81 Est GFR (MDRD) Af Amer 120 Est GFR (MDRD) Non-Af 100 BUN/Creatinine Ratio 20.0 Glucose 90 Calcium 8.3 L Troponin I High Sens 4 Radiography Diagnostic Testing: Clinical Impression(s) from Imaging Studies Chest X-Ray 11/29/23 20:15 IMPRESSION: Normal x-ray examination of the chest. Electronically Signed: Bossman Velez MD at 21:29 EDT , Discharge Plan Triage Chief Complaint: Chest Pain ED Provider: Keith Parker Dx/Rx/DC Orders Instructions: ED Chest Pain, Noncardiac Prescriptions: No Action acetaminophen 500 MG tablet 500 - 1,000 mg PO Q6H PRN PRN (Reason: Headache) ibuprofen 200 MG tablet 600 - 800 mg PO Q6H PRN PRN (Reason: Pain) Headache Relief (SRK-feyc-ozl) 1 EACH tablet 1 ea PO BID PRN (Reason: Headache) buspirone 15 MG tablet 15 mg PO BID topiramate 50 MG tablet 100 mg PO BID Desogestrel-Ethinyl Estradiol [Apri 28 Day Tablet] 1 EACH tablet 1 ea PO DAILY ondansetron 4 mg tablet,disintegrating 4 mg PO Q8H PRN (Reason: nausea and vomiting) Qty: 10 0RF pantoprazole [Protonix] 40 mg tablet,delayed release (DR/EC) 40 mg PO DAILY Qty: 30 0RF fluoxetine [Prozac] 40 mg capsule 40 mg PO DAILY dextroamphetamine-amphetamine 20 mg capsule,extended release 24hr 20 mg PO DAILY gabapentin 100 mg capsule 100 mg PO QHS hydroxyzine pamoate 25 mg capsule 25 mg PO PRN PRN (Reason: Anxiety) Patient Comments: TAKE 1 CAPSULE BY MOUTH EVERY 4 HOURS NEEDED FOR ANXIETY, NOT TO EXCEED 3 DOSES IN A 24 HOUR PERIOD Nurtec ODT 75 mg tablet,disintegrating 75 mg PO PRN PRN (Reason: MIGRAINES) ondansetron 4 mg tablet,disintegrating 4 mg PO Q8H PRN PRN (Reason: Nausea) Qty: 14 0RF ibuprofen 600 mg tablet 600 mg PO Q8H PRN PRN (Reason: pain) Qty: 20 0RF acetaminophen [Tylenol Extra Strength] 500 mg tablet 1,000 mg PO Q6H PRN (Reason: pain) Qty: 20 0RF buspirone 30 mg tablet 30 mg PO DAILY meclizine 25 mg tablet 25 mg PO DAILY PRN (Reason: dizziness) Patient Comments: TAKE 1 TABLET BY MOUTH THREE TIMES DAILY FOR 5 DAYS Primary Care Provider: Fani Fisher Referrals: Fani Fisher MD [Primary Care Provider] - Disposition Disposition: Home, Self Care
[2023-11-29 23:00] VITALS: BP 136/86; PULSE 72; RESP 18; TEMP 36.9; O2SAT 100
== END 2023-11-29 23:01 | disposition home or self-care (01) ==
PROVIDERS: Emergency Provider Student in an Organized Health Care Education/Training Program; PCP Family Medicine; Visit Provider Student in an Organized Health Care Education/Training Program
DX: R07.9 Chest pain, unspecified (principal); F41.9 Anxiety disorder, unspecified; Z79.3 Long term (current) use of hormonal contraceptives; Z79.899 Other long term (current) drug therapy; G43.909 Migraine, unspecified, not intractable, without status migrainosus; K21.9 Gastro-esophageal reflux disease without esophagitis; F32.A Depression, unspecified; Z90.49 Acquired absence of other specified parts of digestive tract
CPT/HCPCS: 71045; 80048; 84484; 85025; 85379; 93005; 96374; 99284; A4216

== ENCOUNTER 2023-12-22 10:53 | Emergency (ER) | payer MEDICARE, MEDICAID, SELFPAY ==
[2023-12-22 10:54] VITALS: BP 122/81; PULSE 71; RESP 18; TEMP 36.1; O2SAT 97; BMI 40.7
--- NOTE | 2023-12-22 11:28 | EDS_ITS ---
HPI History of Present Illness Chief Complaint: Head Injury Informant: patient and parent Narrative Narrative: Patient presents status post head injury. 2 days ago she had a nonepileptic seizure and fell down 4 steps. She did hit her head on a metal cabinet. Ernesto hoover reports that she has been more confused since then and today had trouble remembering her Social Security number. She has had some intermittent nausea. [facility] Medical History (Updated 12/22/23 @ 12:[address] Flor Salguero MD) Allergic reaction (~10/22/22) Anxiety Back pain Blackout Depression Gastric reflux GERD (gastroesophageal reflux disease) Hip abductor tendonitis History of hiatal hernia Injury of head and neck Migraines Non-smoker Seizures Wears glasses Home Medications Desogestrel-Ethinyl Estradiol [Apri 28 Day Tablet] 1 ea PO DAILY 11/03/18 [History Last Taken Unknown] acetaminophen 500 mg tablet 500 - 1,000 mg PO Q6H PRN PRN Headache 11/03/18 [History Last Taken Unknown] jzacywz-xjuxicsybhqfo-jkclkyvj 250 mg-250 mg-65 mg tablet (Headache Relief (BYD-jmkztjxwcvfe-pcvlnmro)) 1 ea PO BID PRN Headache 11/03/18 [History Last Taken Unknown] buspirone 15 mg tablet 15 mg PO BID Anxiety 11/03/18 [History Last Taken Unknown] ibuprofen 200 mg tablet 600 - 800 mg PO Q6H PRN PRN Pain 11/03/18 [History Last Taken Unknown] topiramate 50 mg tablet 100 mg PO BID 11/03/18 [History Last Taken Unknown] ondansetron 4 mg disintegrating tablet 4 mg PO Q8H PRN nausea and vomiting #10 tabs 07/19/22 [Rx Last Taken Unknown] dextroamphetamine-amphetamine ER 20 mg 24hr capsule,extend release 20 mg PO DAILY 09/14/22 [History Last Taken Unknown] fluoxetine 40 mg capsule (Prozac) 40 mg PO DAILY 09/14/22 [History Last Taken Unknown] gabapentin 100 mg capsule 100 mg PO QHS 09/14/22 [History Last Taken Unknown] hydroxyzine pamoate 25 mg capsule 25 mg PO PRN PRN Anxiety 09/14/22 [History Last Taken Unknown] rimegepant 75 mg disintegrating tablet (Nurtec ODT) 75 mg PO PRN PRN MIGRAINES 09/14/22 [History Last Taken Unknown] acetaminophen 500 mg tablet (Tylenol Extra Strength) 1,000 mg (2 x 500 mg) PO Q6H PRN pain #20 tabs 08/11/23 [Rx Last Taken Unknown] ibuprofen 600 mg tablet 600 mg PO Q8H PRN PRN pain #20 TABLETS 08/11/23 [Rx Last Taken Unknown] ondansetron 4 mg disintegrating tablet 4 mg PO Q8H PRN PRN Nausea #14 tabs 08/11/23 [Rx Last Taken Unknown] buspirone 30 mg tablet 30 mg PO DAILY 10/20/23 [History Last Taken Unknown] meclizine 25 mg tablet 25 mg PO DAILY PRN dizziness 10/20/23 [History Last Taken Unknown] ondansetron 4 mg disintegrating tablet 4 mg PO Q8H PRN PRN Nausea #10 tabs 12/22/23 [Rx Last Taken Unknown] pantoprazole 40 mg tablet,delayed release (Protonix) 40 mg PO DAILY #30 tabs 12/22/23 [Rx Last Taken Unknown] Allergy/AdvReac Type Severity Reaction Status Date / Time gluten Allergy Diarrhea Verified 12/22/23 10:54 azithromycin AdvReac Diarrhea Verified 12/22/23 10:54 Family History Mother Diabetes Cancer skin Thyroid disorder Father Diabetes Hypertension Surgical History History of cholecystectomy History of surgery on lower extremity Hx of tonsillectomy S/P cholecystectomy Social History Smoking Status: Never smoker alcohol intake: never ROS ROS ED Constitutional Constitutional ED: Denies chills or fever(s) Eyes Eyes: Denies discharge from eye(s) ENT ENT ED: Denies discharge from eye(s), rhinorrhea or sore throat Cardiovascular Cardiovascular: Denies chest pain or palpitations Respiratory/Chest Respiratory/Chest: Denies cough or dyspnea Gastrointestinal Gastrointestinal: Reports nausea; Denies abdominal pain or vomiting Genitourinary Genitourinary ED: Denies dysuria Musculoskeletal Musculoskeletal: Reports neck pain; Denies back pain or extremity pain Integumentary Denies Abrasions or rash Neurologic Neurologic: Reports headache(s) and weakness Psychiatric Psychiatric: Denies anxiety or depression Allergic/Immunologic Allergic/Immunologic ED: Denies lip swelling or urticaria EXAM Physical Exam Const Vital Signs: 12/22/23 10:54 12/22/23 11:44 Temperature 97.0 F L Temperature Source Temporal Pulse Rate 71 Respiratory Rate 18 Respiratory Effort Normal Respiratory Depth Normal Respiratory Pattern Normal Blood Pressure 122/81 H Blood Pressure Mean 94 Pulse Ox 97 Oxygen Delivery Method Room Air Room Air Positive well nourished and well developed General Appearance ED: well developed HEENT Reports moist mucous membranes Eyes EOMs intact bilaterally Chest Wall inspection of chest normal and palpation of chest normal Resp normal respiratory effort and clear to auscultation bilaterally Cardio regular rate and regular rhythm GI non-tender Palpation: soft Extremity normal to inspection Neuro oriented x3 and no sensory deficits noted Neuro Narrative: No focal neurologic deficit. Motor Exam: strength 5/5 throughout Skin no rashes or lesions noted MDM MDM MDM Narrative Medical decision making narrative: Patient placed on cardiac care unit nurse. EKG obtained to evaluate for cardiac arrhythmia/ischemia. IV line established. Labwork obtained to evaluate for leukocytosis, anemia, and electrolyte derangement. CT scan of the head and C- spine obtained to evaluate for fracture, bleed, acute injury. History & Record Review Discussion w/independent historian: Patient Lab Data Attestation: I reviewed the patient's lab results. Labs: Laboratory Results - last 24 hr 12/22/23 11:40 WBC 9.5 RBC 4.17 L Hgb 12.4 Hct 37.6 MCV 90.2 MCH 29.7 MCHC 33.0 RDW Std Deviation 44.1 H RDW Coeff of Billy 13.4 Plt Count 343 MPV 8.3 Immature Gran % (Auto) 0.100 Neut % (Auto) 59.2 Lymph % (Auto) 27.5 [place] % (Auto) 4.4 Eos % (Auto) 8.1 H Baso % (Auto) 0.7 Absolute Neuts (auto) 5.6 Absolute Lymphs (auto) 2.60 Nucleated RBC % 0 Sodium 141 Potassium 3.5 Chloride 114 H Carbon Dioxide 21.0 Anion Gap 6 BUN 12 Creatinine 0.68 Estim Creat Clear Calc 167.98 Est GFR (MDRD) Af Amer 136 Est GFR (MDRD) Non-Af 112 BUN/Creatinine Ratio 17.8 Glucose 116 H Calcium 8.3 L Serum , Qual NEGATIVE Radiography Diagnostic Testing: Clinical Impression(s) from Imaging Studies Brain CT 12/22/23 12:01 IMPRESSION: Normal unenhanced CT scan of the brain. Partial opacification of the right ethmoid sinus and the right sphenoid sinus. Electronically Signed: Gulshan Leal MD at 12:21 EDT , Cervical Spine CT 12/22/23 12:01 IMPRESSION: Normal unenhanced CT examination of the cervical spine. Straightening of the normal cervical lordosis. Electronically Signed: Gulshan Leal MD at 12:23 EDT , EKG Initial EKG: Attestation: I personally reviewed and interpreted this EKG as follows: Interpretation: Sinus Rhythm (Sinus at 61 with incomplete right bundle branch block. No acute ischemia.) Treatment and Re-Evaluation :: CBC was a white count of 9.5 with a hemoglobin of 12.4. Differential unremarkable. Chemistry studies reveal normal renal function. test is negative. EKG reveals sinus rhythm with no evidence of acute ischemia. CT scan of the head reveals no acute changes in the brain. Partial opacification in the right ethmoid sinus and the right sphenoid sinus noted. CT scan reveals straightening of the normal lordosis. Test results discussed with patient and family at bedside. She has had multiple concussions in the past but this 1 seems more severe. We did discuss that symptoms are likely to worsen with recurrent concussions and may persist longer. I will write her prescription for Zofran. Return instructions were provided. Discharge Plan Triage Chief Complaint: Head Injury ED Provider: Flor Salguero Dx/Rx/DC Orders Clinical Impression: Concussion, Closed head injury, Cervical strain, Fall Instructions: ED Concussion, ED Head Injury (Adult), ED Neck Sprain or Strain Prescriptions: New ondansetron 4 mg tablet,disintegrating 4 mg PO Q8H PRN PRN (Reason: Nausea) Qty: 10 0RF No Action pantoprazole [Protonix] 40 mg tablet,delayed release (DR/EC) 40 mg PO DAILY Qty: 30 6RF acetaminophen 500 MG tablet 500 - 1,000 mg PO Q6H PRN PRN (Reason: Headache) ibuprofen 200 MG tablet 600 - 800 mg PO Q6H PRN PRN (Reason: Pain) Headache Relief (LJS-pfsk-obr) 1 EACH tablet 1 ea PO BID PRN (Reason: Headache) buspirone 15 MG tablet 15 mg PO BID topiramate 50 MG tablet 100 mg PO BID Desogestrel-Ethinyl Estradiol [Apri 28 Day Tablet] 1 EACH tablet 1 ea PO DAILY ondansetron 4 mg tablet,disintegrating 4 mg PO Q8H PRN (Reason: nausea and vomiting) Qty: 10 0RF fluoxetine [Prozac] 40 mg capsule 40 mg PO DAILY dextroamphetamine-amphetamine 20 mg capsule,extended release 24hr 20 mg PO DAILY gabapentin 100 mg capsule 100 mg PO QHS hydroxyzine pamoate 25 mg capsule 25 mg PO PRN PRN (Reason: Anxiety) Patient Comments: TAKE 1 CAPSULE BY MOUTH EVERY 4 HOURS NEEDED FOR ANXIETY, NOT TO EXCEED 3 DOSES IN A 24 HOUR PERIOD Nurtec ODT 75 mg tablet,disintegrating 75 mg PO PRN PRN (Reason: MIGRAINES) ondansetron 4 mg tablet,disintegrating 4 mg PO Q8H PRN PRN (Reason: Nausea) Qty: 14 0RF ibuprofen 600 mg tablet 600 mg PO Q8H PRN PRN (Reason: pain) Qty: 20 0RF acetaminophen [Tylenol Extra Strength] 500 mg tablet 1,000 mg PO Q6H PRN (Reason: pain) Qty: 20 0RF buspirone 30 mg tablet 30 mg PO DAILY meclizine 25 mg tablet 25 mg PO DAILY PRN (Reason: dizziness) Patient Comments: TAKE 1 TABLET BY MOUTH THREE TIMES DAILY FOR 5 DAYS Primary Care Provider: Fani Fisher Referrals: Fani Fisher MD [Primary Care Provider] - 1 Week Disposition Disposition: Home, Self Care
[2023-12-22] MEDS: 0.9% Normal Saline (1000mL) 1,000 ML 150 ML IV (11:42)
[2023-12-22 11:57] LABS: Absolute Neutrophil Count 5.6 X10^3/uL (2.0-7.7); Basophil# 0.07 X10^3/uL; Basophil% 0.7 % (0-1); Eosinophil# 0.77 X10^3/uL; Eosinophils% 8.1 % (0-5); Hematocrit 37.6 % (37-47); Hemoglobin 12.4 g/dL (12.0-15.0); Lymphocyte % 27.5 % (19-41); Mean Corpuscular Hgb 29.7 pg (27.0-32.0); Mean Corpuscular Volume 90.2 fL (81-99); Mean Platelet Vol. 8.3 fl (6.2-12.0); Monocyte# 0.42 X10^3/uL; Monocyte% 4.4 % (0-10); NRBC Flagged by Analyzer 0 % (0-5); Neutrophil # 5.58 X10^3/uL (2.7-7.7); Neutrophil % 59.2 % (47-70); Platelet Count 343 K/mm3 (150-450); RBC Distribution Width CV 13.4 % (11.6-14.6); RBC Distribution Width SD 44.1 fl (35.1-43.9); Red Blood Count 4.17 M/mm3 (4.2-5.4); White Blood Count 9.5 K/mm3 (4.4-11.0)
--- NOTE | 2023-12-22 12:01 | CT_ITS ---
STUDY: CT BRAIN WITHOUT CONTRAST REASON FOR EXAM: Female, 23 years old. Head injury RADIATION DOSAGE (If Supplied By Facility): CTDIvol = ( 47.06 ) mGy, DLP = ( 872.68 ) mGycm TECHNIQUE: Transaxial CT imaging of the brain was performed without administration of intravenous contrast material. Individualized dose optimization techniques were used for this CT. COMPARISON: No relevant priors. FINDINGS: Normal soft tissue structures. Normal calvarium. Normal size ventricles and extra-axial spaces for the patient''s age. Normal white matter tracts of the cerebral hemispheres. Normal basal ganglia and thalami. Normal brainstem. Normal cerebellum. There is no intracranial hemorrhage. There are no findings of an acute ischemic infarction. Partial opacification of the right ethmoid sinus and right sphenoid sinus. CT/Brain/Head without Contrast IMPRESSION: Normal unenhanced CT scan of the brain. Partial opacification of the right ethmoid sinus and the right sphenoid sinus. Electronically Signed: Gulshan Leal MD at 12:21 EDT ,
--- NOTE | 2023-12-22 12:01 | CT_ITS ---
STUDY: CT CERVICAL SPINE WITHOUT CONTRAST REASON FOR EXAM: Female, 23 years old. Neck pain following a fall. RADIATION DOSAGE (If Supplied By Facility): CTDIvol = ( 19.27 ) mGy, DLP = ( 412.21 ) mGycm TECHNIQUE: High resolution transaxial imaging was performed without contrast material. Sagittal and coronal images were reconstructed. Individualized dose optimization techniques were used for this CT. COMPARISON: None FINDINGS: Normal craniovertebral junction. Normal anterior atlantoaxial articulation. Normal odontoid process. There is straightening of the normal cervical lordosis. Normal vertebral bodies and posterior osseous elements. C2-3: Normal endplates. Normal disc height and morphology. Normal central canal and intervertebral neuroforamina. C3-4: Normal endplates. Normal disc height and morphology. Normal central canal and intervertebral neuroforamina. C4-5: Normal endplates. Normal disc height and morphology. Normal central canal and intervertebral neuroforamina. C5-6: Normal endplates. Normal disc height and morphology. Normal central canal and intervertebral neuroforamina. C6-7: Normal endplates. Normal disc height and morphology. Normal central canal and intervertebral neuroforamina. C7-T1: Normal endplates. Normal disc height and morphology. Normal central canal and intervertebral neuroforamina. Normal visualized soft tissue structures. CT/Spine Cervical without Contras IMPRESSION: Normal unenhanced CT examination of the cervical spine. Straightening of the normal cervical lordosis. Electronically Signed: Gulshan Leal MD at 12:23 EDT ,
[2023-12-22 12:05] LABS: Internal QC Validated? YES +Cl - CLEAR BKGD; Pregnancy, Serum, hCG Quali. NEGATIVE Negative
[2023-12-22 12:10] LABS: Anion Gap 6 (5-15); BUN 12 mg/dL (7-18); BUN/Creat Ratio 17.8 RATIO (10-20); Calcium,Total 8.3 mg/dL (8.5-10.1); Chloride 114 mmol/L (98-107); Creatinine, Serum 0.68 mg/dL (0.55-1.02); EST Glomerular Filtration Rate 112 mL/min (>60); Est Glom Filt Rate - Afr Amer 136 mL/min (>60); Estimated Creatinine Clearance 167.98 ml/min; Glucose 116 mg/dL (74-106); Potassium 3.5 mmol/L (3.5-5.1); Sodium Level 141 mmol/L (136-145)
[2023-12-22 13:19] VITALS: BP 124/69; PULSE 72; RESP 16; TEMP 36.4; O2SAT 100
== END 2023-12-22 13:22 | disposition home or self-care (01) ==
PROVIDERS: Emergency Provider Emergency Medicine; PCP Family Medicine; Visit Provider Emergency Medicine
DX: S06.0X0A Concussion without loss of consciousness, initial encounter (principal); S16.1XXA Strain of muscle, fascia and tendon at neck level, initial encounter; W10.9XXA Fall (on) (from) unspecified stairs and steps, initial encounter; F41.9 Anxiety disorder, unspecified; Z79.899 Other long term (current) drug therapy; F32.A Depression, unspecified; Z79.3 Long term (current) use of hormonal contraceptives; G43.909 Migraine, unspecified, not intractable, without status migrainosus; Z90.49 Acquired absence of other specified parts of digestive tract
CPT/HCPCS: 70450; 72125; 80048; 84703; 85025; 93005; 96360; 96361; 99284; J7030

== ENCOUNTER 2024-01-01 21:05 | Emergency (ER) | payer MEDICARE, MEDICAID, SELFPAY ==
[2024-01-01 21:05] VITALS: BP 123/81; PULSE 71; RESP 16; TEMP 36.6; O2SAT 98; BMI 41.2
[2024-01-01] MEDS: Ketorolac 30 MG/ML Syringe IV (22:57)
[2024-01-01] MEDS: DiphenhydrAMINE 50 MG/ML Syringe IV (22:57)
[2024-01-01] MEDS: Metoclopramide 10 MG/2 ML Vial IV (22:57)
[2024-01-01] MEDS: 0.9% Normal Saline (1000mL) 1,000 ML 999 ML IV (22:57)
[2024-01-01 23:05] VITALS: BP 139/91; PULSE 82; RESP 16; O2SAT 98
--- NOTE | 2024-01-01 23:58 | EX.ED.DYSGE1 ---
HPI History of Present Illness Chief Complaint: Headache Informant: patient and spouse/S.O. Narrative Narrative: Patient is a 23-year-old female with past medical history nonepileptic seizure disorder. She states was seen on December 21 secondary to a nonepileptic seizure which caused her to strike her head and at that time was diagnosed with concussion. She states has been no repeat trauma and she denies any sick symptoms but states she has had persistent headache as well as blurry vision. She has an MRI scheduled for a few days from now but because of the persistent headache comes in for evaluation. 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 Cong Noriega, DO) GERD (gastroesophageal reflux disease) Migraines Seizures Allergic reaction (~10/22/22) Wears glasses Back pain Injury of head and neck Blackout History of hiatal hernia Gastric reflux Non-smoker Hip abductor tendonitis Depression Anxiety Home Medications ?Medication ?Instructions ?Recorded ?Last Taken ?Type Desogestrel-Ethinyl Estradiol 1 ea PO DAILY 11/03/18 Unknown History [Apri 28 Day Tablet] acetaminophen 500 mg tablet 500 - 1,000 mg PO Q6H PRN PRN 11/03/18 Unknown History Headache quvhrkr-lygkjnmyeqlig-pznzjadm 250 1 ea PO BID PRN Headache 11/03/18 Unknown History mg-250 mg-65 mg tablet (Headache Relief (NOU-csehletqrzsw-uwyinepj)) buspirone 15 mg tablet 15 mg PO BID Anxiety 11/03/18 Unknown History ibuprofen 200 mg tablet 600 - 800 mg PO Q6H PRN PRN Pain 11/03/18 Unknown History topiramate 50 mg tablet 100 mg PO BID 11/03/18 Unknown History ondansetron 4 mg disintegrating 4 mg PO Q8H PRN nausea and 07/19/22 Unknown Rx tablet vomiting #10 tabs dextroamphetamine-amphetamine ER 20 mg PO DAILY 09/14/22 Unknown History 20 mg 24hr capsule,extend release fluoxetine 40 mg capsule (Prozac) 40 mg PO DAILY 09/14/22 Unknown History gabapentin 100 mg capsule 100 mg PO QHS 09/14/22 Unknown History hydroxyzine pamoate 25 mg capsule 25 mg PO PRN PRN Anxiety 09/14/22 Unknown History rimegepant 75 mg disintegrating 75 mg PO PRN PRN MIGRAINES 09/14/22 Unknown History tablet (Nurtec ODT) acetaminophen 500 mg tablet 1,000 mg (2 x 500 mg) PO Q6H PRN 08/11/23 Unknown Rx (Tylenol Extra Strength) pain #20 tabs ibuprofen 600 mg tablet 600 mg PO Q8H PRN PRN pain #20 08/11/23 Unknown Rx TABLETS ondansetron 4 mg disintegrating 4 mg PO Q8H PRN PRN Nausea #14 tabs 08/11/23 Unknown Rx tablet buspirone 30 mg tablet 30 mg PO DAILY 10/20/23 Unknown History meclizine 25 mg tablet 25 mg PO DAILY PRN dizziness 10/20/23 Unknown History ondansetron 4 mg disintegrating 4 mg PO Q8H PRN PRN Nausea #10 tabs 12/22/23 Unknown Rx tablet pantoprazole 40 mg tablet,delayed 40 mg PO DAILY #30 tabs 12/22/23 Unknown Rx release (Protonix) Allergy/AdvReac Type Severity Reaction Status Date / Time gluten Allergy Diarrhea Verified 01/01/24 21:07 azithromycin AdvReac Diarrhea Verified 01/01/24 21:07 Family History Mother Diabetes Cancer skin Thyroid disorder Father Diabetes Hypertension Surgical History History of cholecystectomy History of surgery on lower extremity Hx of tonsillectomy S/P cholecystectomy Social History Smoking Status: Never smoker alcohol intake: never ROS ROS ED Constitutional Constitutional ED: Denies chills or fever(s) Eyes Eyes: Reports blurry vision ENT ENT ED: Denies sore throat Cardiovascular Cardiovascular: Denies chest pain Respiratory/Chest Respiratory/Chest: Denies cough or dyspnea Gastrointestinal Gastrointestinal: Reports nausea; Denies abdominal pain, diarrhea or vomiting Genitourinary Genitourinary ED: Denies dysuria Musculoskeletal Musculoskeletal: Denies myalgias or neck pain Integumentary Denies rash Neurologic Neurologic: Reports headache(s) Hematologic/Lymphatic Hematologic/Lymphatic: Denies easy bleeding or easy bruising EXAM Physical Exam Const Vital Signs: 01/01/24 21:05 01/01/24 23:05 01/02/24 00:06 Temperature 98 F 97.5 F L Temperature Source Temporal Pulse Rate 71 82 56 L Respiratory Rate 16 16 16 Blood Pressure 123/81 H 139/91 H 101/58 L Blood Pressure Mean 95 107 72 Pulse Ox 98 98 99 Oxygen Delivery Method Room Air Room Air Positive well nourished, well developed and obese General Appearance ED: well developed; Negative for pallor Nutritional Appearance: obese HEENT HEENT Narrative: Normocephalic atraumatic Eyes PERRL and EOMs intact bilaterally General Eye ED: Negative for pale conjunctiva or scleral icterus Neck supple Neck Narrative: No nuchal rigidity or meningeal signs Resp normal respiratory effort and clear to auscultation bilaterally Cardio regular rate and regular rhythm GI normal to inspection, nondistended, normoactive bowel sounds, non-tender, non-distended and no masses Auscultation: normoactive bowel sounds Palpation: soft Extremity normal to inspection Neuro oriented x3, CN's II-XII intact bilaterally and no sensory deficits noted Neuro Narrative: Cranial nerves II through XII are grossly intact there are no focal neurologic deficits No pronator drift no dysmetria no truncal ataxia NIH stroke scale score of 0 Sensorium / Orientation: alert Motor Exam: strength 5/5 throughout Psych mental status grossly normal Skin no rashes or lesions noted and no wounds General Skin Exam: Negative for jaundice or pallor MDM MDM MDM Narrative Medical decision making narrative: Patient arrived to the ER with stable vitals and reported a CT scan of her head and neck roughly 10 days ago with no new trauma. Therefore concern for second head syndrome is low. She also is not on blood thinners nor does she have a history of bleeding disorder so concern for spontaneous subarachnoid or subdural bleed is low. I do not feel the need for repeat CT scan and patient has not had reported congestion or sinus pain pressure to suggest sinusitis as a cause of her headache. Her neurologic exam is normal as well and therefore do not feel there is need for emergent imaging study. Patient most likely has persistent symptoms based on her exposure to television/video games. She was informed of this and advised to completely stop exposure which should help reduce her symptoms. Patient was treated with IV fluids Toradol Benadryl Reglan and did report near resolution of her headache and her neurologic exam remained normal and therefore she is otherwise safe for discharge History & Record Review Discussion w/independent historian: Patient and Significant other Discharge Plan Triage Chief Complaint: Headache ED Provider: Cong Noriega Dx/Rx/DC Orders Clinical Impression: Post-concussion headache, History of psychogenic nonepileptic seizure Instructions: Coping with Concussion, After a Concussion Prescriptions: No Action pantoprazole [Protonix] 40 mg tablet,delayed release (DR/EC) 40 mg PO DAILY Qty: 30 6RF acetaminophen 500 MG tablet 500 - 1,000 mg PO Q6H PRN PRN (Reason: Headache) ibuprofen 200 MG tablet 600 - 800 mg PO Q6H PRN PRN (Reason: Pain) Headache Relief ([id number]-fvk) 1 EACH tablet 1 ea PO BID PRN (Reason: Headache) buspirone 15 MG tablet 15 mg PO BID topiramate 50 MG tablet 100 mg PO BID Desogestrel-Ethinyl Estradiol [Apri 28 Day Tablet] 1 EACH tablet 1 ea PO DAILY ondansetron 4 mg tablet,disintegrating 4 mg PO Q8H PRN (Reason: nausea and vomiting) Qty: 10 0RF fluoxetine [Prozac] 40 mg capsule 40 mg PO DAILY dextroamphetamine-amphetamine 20 mg capsule,extended release 24hr 20 mg PO DAILY gabapentin 100 mg capsule 100 mg PO QHS hydroxyzine pamoate 25 mg capsule 25 mg PO PRN PRN (Reason: Anxiety) Patient Comments: TAKE 1 CAPSULE BY MOUTH EVERY 4 HOURS NEEDED FOR ANXIETY, NOT TO EXCEED 3 DOSES IN A 24 HOUR PERIOD Nurtec ODT 75 mg tablet,disintegrating 75 mg PO PRN PRN (Reason: MIGRAINES) ondansetron 4 mg tablet,disintegrating 4 mg PO Q8H PRN PRN (Reason: Nausea) Qty: 14 0RF ibuprofen 600 mg tablet 600 mg PO Q8H PRN PRN (Reason: pain) Qty: 20 0RF acetaminophen [Tylenol Extra Strength] 500 mg tablet 1,000 mg PO Q6H PRN (Reason: pain) Qty: 20 0RF ondansetron 4 mg tablet,disintegrating 4 mg PO Q8H PRN PRN (Reason: Nausea) Qty: 10 0RF buspirone 30 mg tablet 30 mg PO DAILY meclizine 25 mg tablet 25 mg PO DAILY PRN (Reason: dizziness) Patient Comments: TAKE 1 TABLET BY MOUTH THREE TIMES DAILY FOR 5 DAYS Primary Care Provider: Fani Fisher Referrals: Fani Fisher MD [Primary Care Provider] - Print Language: Kiswahili Disposition Disposition: Home, Self Care Discharge Date/Time: 01/02/24 00:08
[2024-01-02 00:06] VITALS: BP 101/58; PULSE 56; RESP 16; TEMP 36.4; O2SAT 99
== END 2024-01-02 00:08 | disposition home or self-care (01) ==
PROVIDERS: Emergency Provider Emergency Medicine; PCP Family Medicine; Visit Provider Emergency Medicine
DX: G44.309 Post-traumatic headache, unspecified, not intractable (principal); K21.9 Gastro-esophageal reflux disease without esophagitis; Z79.899 Other long term (current) drug therapy
CPT/HCPCS: 99283; J7030

== ENCOUNTER 2024-01-10 12:31 | Day surgery (SDC) | payer MEDICARE, MEDICAID, SELFPAY ==
[2024-01-10 13:08] VITALS: BP 119/76; PULSE 73; RESP 16; TEMP 36.7; O2SAT 99; BMI 40.8
[2024-01-10] MEDS: Lactated Ringers 1,000 ML 15 ML IV (13:17)
[2024-01-10 13:31] LABS: Internal QC Validated? YES +Cl - CLEAR BKGD
[2024-01-10 13:32] LABS: Pregnancy, Urine Negative Negative
--- NOTE | 2024-01-10 14:00 | EGD_PTH ---
PATIENT: DONNIE BRONSON LOC: [facility] U#:[id number] AGE/SX: 23/F ROOM: RE01/10/[address]: Dr. Cali Kim DO : 2000 BED: DIS: 01/10/2024 SPEC #: [id number] RECD: 01/10/24 16:01 STATUS: CHERIE REPura #: [id number] ONEL: 01/10/24 14:[address]: Cali Kim DEPT: SURGICAL PATHOLOGY RECD BY: Lulu Jj ENTERED: 01/11/24 09:23 SP TYPE: EGD BIOPSY OT DR: Dr. Fani Fisher MD Tissues: A - Duodenum, NOS B - Gastric mucous membrane C - Esophagus, NOS Procedures: Special Stain Group I Surgery Specimen Level IV Alcian Blue/PAS (control) HEADER OPERATION: EGD with biopsies PRE-OP DIAGNOSIS: Celiac disease, eosinophilic esophagitis, gastrointestinal food sensitivity, abdominal pain TISSUE SUBMITTED: A- Duodenum biopsy, B- Gastric body biopsy, C- Distal esophagus biopsy MICROSCOPIC DIAGNOSIS A. Duodenum, biopsy: Minimal non-specific chronic inflammation. B. Gastric body, biopsy: Chronic gastritis. C. Distal esophagus, biopsy: Gastroesophageal junctional mucosa with mild chronic inflammation. Reflux esophagitis. No evidence of goblet cell metaplasia. See comment. CELSO/ 01/12/2024 COMMENT B. The results of immunohistochemistry for Helicobacter pylori will be reported separately ([id number]). C. Alcian blue/PAS stain with matched control supports the above diagnosis. MICROSCOPIC DESCRIPTION Slides are reviewed. GROSS DESCRIPTION A. Received in fixative is one container labeled with the patient's name and designated Duodenum biopsy. The specimen consists of multiple irregular fragments of light dye soft tissue that in aggregate measure 1.0 x 0.2 x 0.1 cm. The specimen is totally submitted in one cassette. B. Received in fixative is one container labeled with the patient's name and designated gastric body biopsy. The specimen consists of one irregular fragment of light dye soft tissue that measures 0.6 x 0.5 x 0.1 cm. The specimen is totally submitted in one cassette. C. Received in fixative is one container labeled with the patient's name and designated Distal esophagus biopsy. The specimen consists of multiple irregular fragments of light dye soft tissue that in aggregate measure 1.0 x 0.3 x 0.1 cm. The specimen is totally submitted in one cassette. CELSO/ 01/11/2024 TC:3 CPT:75632r0,15287
--- NOTE | 2024-01-10 14:00 | IMM_PTH ---
PATIENT: DONNIE BRONSON LOC: EN U#:[id number] AGE/SX: 23/F ROOM: RE01/10/[address]: Dr. Cali Kim DO : 2000 BED: DIS: 01/10/2024 SPEC #: [id number] RECD: 01/11/24 11:10 STATUS: CHERIE REQ #: [id number] ONEL: 01/10/24 14:[address]: Cali Kim DEPT: IMMUNOHISTOCHEMISTRY RECD BY: Virgilio De Leon ENTERED: 01/11/24 11:10 SP TYPE: IMMUNO OTHR DR: Dr. Fani Fisher MD Tissues: B - Gastric mucous membrane Procedures: H Pylori (initial) PHYSICIAN & INSTITUTION [place] [id number] SPECIMEN INFORMATION: Tissue Source: B- Gastric body biopsy Clinical Info: Celiac disease, eosinophilic esophagitis, gastrointestinal food sensitivity, abdominal pain Specimen Number: [id number] CPT code: 81872 METHODOLOGY: Deparaffinized sections of prefer/formalin-fixed tissue or PAP/DQ stained slides are incubated with monoclonal/polyclonal antibodies/oligonucleotide probes. Localization is made via biotin free immunoperoxidase method. Appropriate controls are performed and reacted as expected. Results on target cell population are indicated in the following table: RESULTS: ANTIBODY / CLONE RESULT Block B H Pylori (polyclonal) negative These tests were developed and their performance characteristics determined by [facility]. They may not have been cleared or approved by the U.S. Food and Drug Administration. The FDA has determined that such clearance or approval is not necessary. The above immunohistochemical/dualISH markers are ordered and reviewed by the Pathologist. INTERPRETATION: B. Gastric body, biopsy: Negative for Helicobacter pylori organisms. CELSO/ 01/12/2024
--- NOTE | 2024-01-10 14:05 | PCM.HP.BLA ---
History and Physical Date of Admission: 01/10/24 gallbladder removal 09/21 Details: DONNIE BRONSON, is a 23 F who presents to the office today for follow up. [facility] ED 07.17.22 continued abdominal pain with postprandial emesis. UA obtained x2, both contaminated. Discharged with 3 days of atb and potassium replacement, Zofran, bentyl. ? Biochemical workup CBC, CMP (potassium 3.1), LFT, lipase without significant abnormality. [facility] ED 07.19.22 continued abd pain radiating into her back; aggravated with eating/drinking ad causes emesis. Discharged with protonix, Zofran and Carafate. ? Biochemical workup CBC, CMP, lipase without significant abnormality. US RUQ hepatic measurement 17cm with normal echogenicity; distended gallbladder with +Sherwood?s sign without pericholecystic fluid; small linear fluid collection anterior to pancreatic head. [facility] gastroenterology established 07.21.22 with right abdominal/flank pain, dysphagia, heartburn, diarrhea ? CT abd/pel 07.22.22 upper normal gallbladder caliber with miniscule nonspecific pericholecystic fluid without cholecystitis features; small stool burden in ascending colon ? EGD 07.30.22 LA Grade D reflux esophagitis; 2cm hiatal hernia; normal duodenum. Pathology noting hyperplastic mucosa changes without metaplasia. ? Protonix 40mg BID; continue Carafate QID *[facility]I established 08.11.22 following [facility] ED presentations for abdominal pain and dysuria. Presented to urgent care who diagnosed UTI and instructed ED presentation for IVF; [facility] ED presentation without testing indicative of UTI. HIDA scan 09.01.22 <35%. EGD [facility]GI 3.23 esophageal changes secondary to EOE, path confirmed; chronic gastritis; bilious gastric fluid; duodenitis, Bebe gland hyperplasia and blunted villi. H.Pylori negative. Biochemical workup CBC, ESR, CMP, LDH, АННА comp, ANCA, celiac, IgGME, ASHLEY without pertinent abnormality. Celiac IgA L72 CRP H17, IgA L72 RAST: Low/Equivocal Peanut, Cows milk. Low Wheat. [facility] Dr. Garcia seen 09.07.22 with recommendation for laparoscopic cholecystectomy. OV 5.09.06 she has not made any dietary changes to date; she recently moved in with her boyfriend who is a very picky eater. She continues to have symptoms as previously. Notes that if she has both dairy and wheat she will have worse symptoms. She would like to establish with nutrition services. OV 12.22.23 Pt reports that since moving back in with her family and eating home cooked food she is not having any GI symptoms of concern. Pt states that she is working with [employer]. Reports a formed BM every other day which she reports is her normal. Pt continues with Pantoprazole and Busprione. 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 Pt denies seeing a Dr after fall, but states she will go get checked out after this appointment. ROS Const Constitutional: Positive for fatigue, frequent falls, headache(s) and weakness; No fever(s) or weight change ENT ENT: Positive for headache(s); No difficulty swallowing Gastro GI: Positive for nausea/dyspepsia; No abdominal pain, belching, bloating, change in bowel habits, change in stool character, coffee ground emesis, constipation, cramping, diarrhea, heartburn, difficulty swallowing, feeling full early, excessive flatus, incontinent of stools, Vomiting blood/hematemesis, Blood in stool, loose stools, Black,tarry stools, pain with swallowing, vomiting or other Musc Musculoskeletal: Positive for joint pain, back pain and stiffness Skin Skin: No yellowing of the eye or itchy eyes Neuro Neurology: Positive for weakness, frequent falls, headache(s), tremor(s) and seizures Psych Psychiatric: Positive for anxiety and No depression Endo Endocrine: Positive for fatigue; No weight change Aller/Imm Allergy/Immunologic: No itchy eyes Josué/Lymp Hematologic/Lymphatic: No easy bleeding or easy bruising Exam Const General: cooperative and comfortable Nutritional Appearance: average body habitus and well nourished HENMT Head: normal to inspection Ears: hearing grossly normal bilaterally Nose: external nose normal Face and sinus: normal facial exam Mouth: oral mucosae normal Throat: posterior oropharynx normal Eyes General: appearance normal, both eyes and all related structures Neck Neck: normal visual inspection Chest Chest palpation & inspection: normal inspection of the chest and normal palpation of entire chest wall Resp Effort & Inspection: normal respiratory effort Auscultation: Bilateral: Clear to Auscultation Cardio Palpation: normal PMI Rate: regular rate Rhythm: regular rhythm GI Inspection: normal to inspection Auscultation: normal bowel sounds Percussion: normal to percussion Palpation: no hepatosplenomegaly Skin General: no rashes or lesions noted Neuro General: patient alert Extrem General: normal to inspection Psych Affect: normal affect Assessment and Plan Assessment and Plan (1) Celiac disease: Status: Acute Plan: An estimated 2% of people with celiac disease also have selective immunoglobulin A (IgA) deficiency. If someone has IgA deficiency and celiac disease, the IgA deficiency?can cause a false negative on a celiac disease antibody test. She also has a very high wheat allergy and cow's milk allergy. We will refer her to [employer] and recommend a gluten free diet for now. Recheck her crp in 6 months. (2) Eosinophilic esophagitis: Status: Chronic (3) Gastrointestinal food sensitivity: Status: Chronic Comment: Peanut, cow's milk, Wheat. Celiac status unknown r/t IgA deficiency. (4) Abdominal pain: Status: Chronic Qualifiers: Abdominal location: right upper quadrant Qualified Code(s): R10.11 - Right upper quadrant pain Plan: Her abdominal pain could be from secondary to atypical erosive esophagitis. This is improving with PPI therapy and Carafate. Also her imaging with her ultrasound did show an enlarged gallbladder with some possible pericholecystic fluid collection around the area of the hernandez hepatis. It was no sign of perforation or pneumoperitoneum on her CAT scan of the abdomen pelvis. There was also no stone seen in her bile duct or gallbladder. She got a HIDA scan and her ejection fraction was low. She did see the surgeon and cholecystectomy was recommended. She will follow up with him. (5) Erosive esophagitis: Status: Acute Plan: Severe LA grade D erosive esophagitis on PPI therapy and Carafate therapy. Recommendation was follow-up endoscopy to screen for Lawrence's esophagus. She also has a 2 cm sliding hiatal hernia that may need to be addressed in the future. We would take measurements to where her lower esophageal sphincter is located. She may need manometry if surgery is going to be a consideration in the future. Orders: Orders Miscellaneous Lab Procedure 2 Today K20.0 - Eosinophilic esophagitis, K90.0 - Celiac disease, T78.1XXA - Other adverse food reactions, not elsewhere classified, initial encounter Celiac Disease Profile Today K20.0 - Eosinophilic esophagitis, K90.0 - Celiac disease, T78.1XXA - Other adverse food reactions, not elsewhere classified, initial encounter CRP Today K20.0 - Eosinophilic esophagitis, K90.0 - Celiac disease, T78.1XXA - Other adverse food reactions, not elsewhere classified, initial encounter Erythrocyte Sed Rate Today K20.0 - Eosinophilic esophagitis, K90.0 - Celiac disease, T78.1XXA - Other adverse food reactions, not elsewhere classified, initial encounter Medications: Refilled pantoprazole (Protonix) 40 mg PO DAILY 30 tabs 6RF I have examined the patient and the H&P has been reviewed. There are no clinical changes since date of exam.
--- NOTE | 2024-01-10 15:04 | OP.EGD_ITS ---
Patient Name: Aaliyah Maldonado Procedure Date: 01/10/2024 2:51 PM Date of : 2000 Age: 23 Procedure: Upper GI endoscopy Indications: Epigastric abdominal pain, Heartburn Providers: Cali Kim DO Referring MD: Fani Fisher Medicines: Monitored Anesthesia Care Patient Profile: This is a 23 year old female. Refer to note in patient chart for documentation of history and physical. Patient has symptoms of chronic epigastric abdominal pain. Complications: No immediate complications. Procedure: Pre-Anesthesia Assessment: - Prior to the procedure, a History and Physical was performed, and patient medications and allergies were reviewed. The patient is competent. The risks and benefits of the procedure and the sedation options and risks were discussed with the patient. All questions were answered and informed consent was obtained. Patient identification and proposed procedure were verified by the physician in the pre-procedure area. Mental Status Examination: alert and oriented. Airway Examination: normal oropharyngeal airway and neck mobility. Respiratory Examination: clear to auscultation. CV Examination: normal. Prophylactic Antibiotics: The patient does not require prophylactic antibiotics. Prior Anticoagulants: The patient has taken no anticoagulant or antiplatelet agents. ASA Grade Assessment: II - A patient with mild systemic disease. After reviewing the risks and benefits, the patient was deemed in satisfactory condition to undergo the procedure. The anesthesia plan was to use monitored anesthesia care (MAC). Immediately prior to administration of medications, the patient was re-assessed for adequacy to receive sedatives. The heart rate, respiratory rate, oxygen saturations, blood pressure, adequacy of pulmonary ventilation, and response to care were monitored throughout the procedure. The physical status of the patient was re-assessed after the procedure. After obtaining informed consent, the endoscope was passed under direct vision. Throughout the procedure, the patient's blood pressure, pulse, and oxygen saturations were monitored continuously. The Endoscope was introduced through the mouth, and advanced to the second part of duodenum. The upper GI endoscopy was accomplished without difficulty. The patient tolerated the procedure well. Scope In: 2:55:02 PM Scope Out: 2:58:34 PM Total Procedure Duration Time 0 hours 3 minutes 32 seconds Findings: LA Grade A (one or more mucosal breaks less than 5 mm, not extending between tops of 2 mucosal folds) esophagitis with no bleeding was found 36 to 37 cm from the incisors. Biopsies were taken with a cold forceps for histology. Verification of patient identification for the specimen was done. Estimated blood loss was minimal. Patchy mildly erythematous mucosa without bleeding was found in the gastric body. Biopsies were taken with a cold forceps for histology. Verification of patient identification for the specimen was done. Estimated blood loss was minimal. Biopsies were taken with a cold forceps for Helicobacter pylori testing. Verification of patient identification for the specimen was done. Estimated blood loss was minimal. Patchy mildly erythematous mucosa without active bleeding and with no stigmata of bleeding was found in the first portion of the duodenum. Biopsies were taken with a cold forceps for histology. Verification of patient identification for the specimen was done. Estimated blood loss was minimal. Impression: - LA Grade A reflux esophagitis with no bleeding. Biopsied. - Erythematous mucosa in the gastric body. Biopsied. - Erythematous duodenopathy. Biopsied. Recommendation: - Discharge patient to home. - Resume previous diet. - Continue present medications. - Await pathology results. Procedure Code(s): --- Professional --- 11891, Esophagogastroduodenoscopy, flexible, transoral; with biopsy, single or multiple CPT copyright 2021 [employer]. All rights reserved. The codes documented in this report are preliminary and upon manager application review may be revised to meet current compliance requirements. Cali Kim DO 01/10/2024 3:03:49 PM This report has been signed electronically. Number of Addenda: 0 Note Initiated On: 01/10/2024 2:51 PM
--- NOTE | 2024-01-10 15:04 | OP.CCLET_ITS ---
01/10/2024 Fani Fisher Re : Upper GI endoscopy procedure for Aaliyah Maldonado Dear Natalia This procedure was performed on Wednesday, January 10, 2024. My impressions and recommendations are as follows: Impressions : - LA Grade A reflux esophagitis with no bleeding. Biopsied. - Erythematous mucosa in the gastric body. Biopsied. - Erythematous duodenopathy. Biopsied. Recommendations : - Discharge patient to home. - Resume previous diet. - Continue present medications. - Await pathology results. My findings are described in the full procedure note, which is enclosed. If I can be of further assistance, please feel free to contact me at . Sincerely, Cali Kim, 01/10/2024 3:03:49 PM This report has been signed electronically.
[2024-01-10 15:05] VITALS: BP 119/64; BP 119/76; PULSE 77; RESP 14; TEMP 36.3; O2SAT 97
[2024-01-10 15:10] VITALS: BP 119/72; BP 119/76; PULSE 69; RESP 16; O2SAT 93
[2024-01-10 15:15] VITALS: BP 110/63; BP 119/76; PULSE 64; RESP 16; O2SAT 97
[2024-01-10 15:20] VITALS: BP 114/62; BP 119/76; PULSE 62; RESP 16; TEMP 36.6
[2024-01-10 15:54] VITALS: BP 119/76
[2024-01-10 19:02] LABS: Erythrocyte Sedimentation Rate 7 mm/hr (0-30)
[2024-01-12 16:10] LABS: Endomysial Antibody IgA Negative (Negative); Immunoglobulin A 89 mg/dL (87-352); t-Transglutaminase IgA <2 U/mL (0-3)
== END 2024-01-10 15:55 | disposition home or self-care (01) ==
LOC: EN 12:32 → AC 12:35
PROVIDERS: Anesthesiology; PCP Family Medicine; Referring Provider Family Medicine; Visit Provider Internal Medicine Gastroenterology
PROC: 0DJ08ZZ Inspection of Upper Intestinal Tract, Via Natural or Artificial Opening Endoscopic (ICD-10-PCS; CPT 43235; principal; 2024-01-10 13:55)
DX: K90.0 Celiac disease (principal); R10.11 Right upper quadrant pain; Z91.010 Allergy to peanuts; Z91.011 Allergy to milk products; Z91.018 Allergy to other foods; K22.10 Ulcer of esophagus without bleeding; K21.00 Gastro-esophageal reflux disease with esophagitis, without bleeding; K31.89 Other diseases of stomach and duodenum; K29.70 Gastritis, unspecified, without bleeding
CPT/HCPCS: 43239; 36415; 81025; 82784; 83516; 85652; 86140; 86255; 88305; 88312; 88342; J7120; J2405

== ENCOUNTER 2024-02-20 21:44 | Emergency (ER) | payer MEDICARE, MEDICAID, SELFPAY ==
[2024-02-20 21:45] VITALS: BP 116/76; PULSE 78; RESP 18; TEMP 36.2; O2SAT 98; BMI 41.1
[2024-02-20 22:52] LABS: Mucous, Urine 0 SEEN /hpf (<or=2+)
[2024-02-20 22:53] LABS: Color, Urine Yellow (Yellow); Glucose, Dipstick Normal (Normal); Ketone-Dipstick Negative (Negative); Leukocyte Esterase-Dipstick 500 /ul (Negative); Nitrite-Dipstick Negative (Negative); Occult Blood-Urine 50 /ul (Negative); Protein-Dipstick Negative (Negative); Specific Gravity, Urine 1.025 (1.002-1.030); Urine Bilirubin Dipstick Negative (Negative); Urine Clarity Clear (Clear); Urine Urobilinogen 1 mg/dl (Normal)
[2024-02-20 22:58] LABS: Internal QC Validated? YES +Cl - CLEAR BKGD; Pregnancy, Urine Negative Negative; Record Kit Lot#,Urine Preg 772476
[2024-02-20 23:01] LABS: Absolute Lymphocyte Count 3.26 X10^3/uL (0.83-4.51); Basophil# 0.06 X10^3/uL; Basophil% 0.7 % (0-1); Eosinophil# 0.39 X10^3/uL; Eosinophils% 4.3 % (0-5); Hematocrit 39.5 % (37-47); Hemoglobin 13.1 g/dL (12.0-15.0); Lymphocyte # 3.26 X10^3/ul (0.83-4.51); Lymphocyte % 35.8 % (19-41); Mean Corp Hgb Conc 33.2 g/dL (32-36); Mean Corpuscular Volume 90.6 fL (81-99); Mean Platelet Vol. 7.9 fl (6.2-12.0); Monocyte# 0.42 X10^3/uL; Monocyte% 4.6 % (0-10); NRBC Flagged by Analyzer 0 % (0-5); Neutrophil # 4.95 X10^3/uL (2.7-7.7); Neutrophil % 54.4 % (47-70); Platelet Count 383 K/mm3 (150-450); RBC Distribution Width CV 13.9 % (11.6-14.6); RBC Distribution Width SD 46.2 fl (35.1-43.9); Red Blood Count 4.36 M/mm3 (4.2-5.4); White Blood Count 9.1 K/mm3 (4.4-11.0)
[2024-02-20] MEDS: 0.9% Normal Saline (1000mL) 1,000 ML 999 ML IV (23:05)
[2024-02-20 23:10] LABS: Bacteria 3+ /hpf (None Seen); Calcium Oxalate Crystals Ur RARE /hpf (<or=2+); Red Blood Cells-Urine 0-5 SEEN /hpf (0-5); Squamous Epithelial Cells - UA 5-10 SEEN /hpf (5-10); White Blood Cells 5-10 SEEN /hpf (0-5)
[2024-02-20 23:18] LABS: Anion Gap 6 (5-15); BUN 12 mg/dL (7-18); BUN/Creat Ratio 14.9 RATIO (10-20); Calcium,Total 8.6 mg/dL (8.5-10.1); Chloride 112 mmol/L (98-107); Creatinine, Serum 0.81 mg/dL (0.55-1.02); EST Glomerular Filtration Rate 91 mL/min (>60); Est Glom Filt Rate - Afr Amer 110 mL/min (>60); Estimated Creatinine Clearance 141.78 ml/min; Glucose 103 mg/dL (74-106); Potassium 3.8 mmol/L (3.5-5.1); Sodium Level 140 mmol/L (136-145)
--- NOTE | 2024-02-20 23:49 | EDS_ITS ---
HPI History of Present Illness Chief Complaint: General Illness Informant: patient and spouse/S.O. Narrative Narrative: Patient is a 23-year-old female with past medical history of anxiety and depression as well as nonepileptic seizure and migraine headache. She states that today she is just felt off. She cannot describe her sensation any further and denies fevers chills nausea vomiting diarrhea dysuria or concern for . She states that her medications have not changed and she has been taking them as directed. However as she just feels off and has concern that there may be some underlying process causing this she comes in for evaluation [facility] Medical History (Updated 02/21/24 @ 03:[address] Cong Noriega, DO) PONV (postoperative nausea and vomiting) Post concussion syndrome Dietary restriction Leg cramps Chest pain GERD (gastroesophageal reflux disease) Migraines Seizures Allergic reaction (~10/22/22) Wears glasses Back pain Injury of head and neck Blackout History of hiatal hernia Gastric reflux Non-smoker Hip abductor tendonitis Depression Anxiety Home Medications ?Medication ?Instructions ?Recorded ?Last Taken ?Type ibuprofen 200 mg tablet 600 - 800 mg PO Q6H PRN PRN Pain 11/03/18 Unknown History ondansetron 4 mg disintegrating 4 mg PO Q8H PRN nausea and 07/19/22 Unknown Rx tablet vomiting #10 tabs fluoxetine 40 mg capsule (Prozac) 40 mg PO DAILY 09/14/22 Unknown History gabapentin 100 mg capsule 100 mg PO QHS 09/14/22 Unknown History hydroxyzine pamoate 25 mg capsule 30 mg PO PRN PRN Anxiety 09/14/22 Unknown History rimegepant 75 mg disintegrating 75 mg PO PRN PRN MIGRAINES 09/14/22 Unknown History tablet (Nurtec ODT) acetaminophen 500 mg tablet 1,000 mg (2 x 500 mg) PO Q6H PRN 08/11/23 Unknown Rx (Tylenol Extra Strength) pain #20 tabs buspirone 30 mg tablet 30 mg PO DAILY 10/20/23 Unknown History meclizine 25 mg tablet 25 mg PO DAILY PRN dizziness 10/20/23 Unknown History pantoprazole 40 mg tablet,delayed 40 mg PO DAILY #30 tabs 12/22/23 Unknown Rx release (Protonix) diphenhydramine HCl 25 mg tablet 50 mg PO QHS 02/20/24 Unknown History (Jkumb-Y-Frkw) levonorgestrel 0.15 mg-ethinyl 1 tab PO DAILY 02/20/24 Unknown History estradiol 30 mcg tablets,3 mos pack(91) (Macho) topiramate 100 mg tablet 100 mg PO BID 02/20/24 Unknown History Allergy/AdvReac Type Severity Reaction Status Date / Time gluten Allergy Diarrhea Verified 02/20/24 21:48 milk (dairy) AdvReac Mild INDEGESTION Verified 02/20/24 21:48 azithromycin AdvReac Diarrhea Verified 02/20/24 21:48 Family History Mother Diabetes Cancer skin Thyroid disorder Father Diabetes Hypertension Surgical History History of wisdom tooth extraction History of cholecystectomy S/P cholecystectomy History of surgery on lower extremity Hx of tonsillectomy Social History Smoking Status: Never smoker alcohol intake: never ROS ROS ED Constitutional Constitutional ED: Denies chills or fever(s) Eyes Eyes: Denies blurry vision or change in vision ENT ENT ED: Denies rhinorrhea or sore throat Cardiovascular Cardiovascular: Denies chest pain or palpitations Respiratory/Chest Respiratory/Chest: Denies cough or dyspnea Gastrointestinal Gastrointestinal: Denies abdominal pain, diarrhea, nausea or vomiting Genitourinary Genitourinary ED: Denies dysuria Musculoskeletal Musculoskeletal: Denies myalgias Integumentary Denies rash Neurologic Neurologic: Denies headache(s), paresthesias or weakness Hematologic/Lymphatic Hematologic/Lymphatic: Denies easy bleeding or easy bruising EXAM Physical Exam Const Vital Signs: 02/20/24 21:45 02/20/24 21:55 Temperature 97.2 F L Temperature Source Temporal Pulse Rate 78 Respiratory Rate 18 Respiratory Effort Normal Respiratory Pattern Normal Blood Pressure 116/76 Blood Pressure Mean 89 Pulse Ox 98 Oxygen Delivery Method Room Air Positive well nourished, well developed and obese General Appearance ED: well developed; Negative for pallor Nutritional Appearance: obese HEENT Reports moist mucous membranes HEENT Narrative: No tongue or lip swelling no oral lesions no airway edema or compromise Eyes PERRL and EOMs intact bilaterally General Eye ED: Negative for pale conjunctiva or scleral icterus Neck supple Neck Narrative: No nuchal rigidity or meningeal signs Resp normal respiratory effort and clear to auscultation bilaterally Cardio regular rate and regular rhythm GI normal to inspection, nondistended, normoactive bowel sounds, non-tender, non- distended and no masses Auscultation: normoactive bowel sounds Palpation: soft Back/Spine no CVA tenderness Extremity normal to inspection Neuro oriented x3, CN's II-XII intact bilaterally and no sensory deficits noted Sensorium / Orientation: alert Motor Exam: strength 5/5 throughout Psych Psych Narrative: Patient has a flat affect Skin no rashes or lesions noted General Skin Exam: Negative for jaundice or pallor MDM MDM MDM Narrative Medical decision making narrative: Patient arrived to the ER with stable vitals and reported just feeling off. She denied fevers chills nausea vomiting diarrhea dysuria. She denied any illicit drug use or change to her medication. At this time as patient could have acute blood loss anemia versus acute kidney injury versus electrolyte abnormality versus infectious process such as UTI or have derangements to her blood sugar I did elect to perform basic laboratory testing. Labs revealed no clinically significant finding. Patient did have bacteria in her urine but there was also contamination with epithelial cells and she does not have dysuria and therefore I do not feel this is true UTI. The urine to be sent for culture to further assess this but at this time vitals are stable workup is negative I do not feel there is need for treatment or further testing and she is otherwise safe for discharge History & Record Review Discussion w/independent historian: Patient Lab Data Attestation: I reviewed the patient's lab results. Labs: Laboratory Results - last 24 hr 02/20/24 02/20/24 22:42 22:57 WBC 9.1 RBC 4.36 Hgb 13.1 Hct 39.5 MCV 90.6 MCH 30.0 MCHC 33.2 RDW Std Deviation 46.2 H RDW Coeff of Billy 13.9 Plt Count 383 MPV 7.9 Immature Gran % (Auto) 0.200 Neut % (Auto) 54.4 Lymph % (Auto) 35.8 [place] % (Auto) 4.6 Eos % (Auto) 4.3 Baso % (Auto) 0.7 Absolute Neuts (auto) 5.0 Absolute Lymphs (auto) 3.26 Nucleated RBC % 0 Sodium 140 Potassium 3.8 Chloride 112 H Carbon Dioxide 22.0 Anion Gap 6 BUN 12 Creatinine 0.81 Estim Creat Clear Calc 141.78 Est GFR (MDRD) Af Amer 110 Est GFR (MDRD) Non-Af 91 BUN/Creatinine Ratio 14.9 Glucose 103 Calcium 8.6 Magnesium 2.0 Urine Color Yellow Urine Clarity Clear Urine pH 5.0 Ur Specific [place] 1.025 Urine Protein Negative Urine Glucose (UA) Normal Urine Ketones Negative Urine Occult Blood 50 H Urine Nitrite Negative Urine Bilirubin Negative Urine Urobilinogen 1 H Ur Leukocyte Esterase 500 H Urine RBC 0-5 SEEN Urine WBC 5-10 SEEN Ur Squamous Epith Cells 5-10 SEEN Calcium Oxalate Crystal RARE Urine Bacteria 3+ Urine Mucus 0 SEEN Urine Test Negative Discharge Plan Triage Chief Complaint: General Illness ED Provider: Cong Noriega Dx/Rx/DC Orders Clinical Impression: Fatigue, Anxiety and depression, History of psychogenic nonepileptic seizure Instructions: ED Weakness (Uncertain Cause) Prescriptions: No Action pantoprazole [Protonix] 40 mg tablet,delayed release (DR/EC) 40 mg PO DAILY Qty: 30 6RF ibuprofen 200 MG tablet 600 - 800 mg PO Q6H PRN PRN (Reason: Pain) ondansetron 4 mg tablet,disintegrating 4 mg PO Q8H PRN (Reason: nausea and vomiting) Qty: 10 0RF fluoxetine [Prozac] 40 mg capsule 40 mg PO DAILY gabapentin 100 mg capsule 100 mg PO QHS hydroxyzine pamoate 25 mg capsule 30 mg PO PRN PRN (Reason: Anxiety) Patient Comments: TAKE 1 CAPSULE BY MOUTH EVERY 4 HOURS NEEDED FOR ANXIETY, NOT TO EXCEED 3 DOSES IN A 24 HOUR PERIOD Nurtec ODT 75 mg tablet,disintegrating 75 mg PO PRN PRN (Reason: MIGRAINES) acetaminophen [Tylenol Extra Strength] 500 mg tablet 1,000 mg PO Q6H PRN (Reason: pain) Qty: 20 0RF topiramate 100 mg tablet 100 mg PO BID levonorgestrel-ethinyl estrad [Jolessa] 0.15 mg-30 mcg (91) tablets,dose pack,3 month 1 tab PO DAILY diphenhydramine HCl [[id number]-G-Vxjt] 25 mg tablet 50 mg PO QHS buspirone 30 mg tablet 30 mg PO DAILY meclizine 25 mg tablet 25 mg PO DAILY PRN (Reason: dizziness) Patient Comments: TAKE 1 TABLET BY MOUTH THREE TIMES DAILY FOR 5 DAYS Primary Care Provider: Fani Fisher Referrals: Fani Fisher MD [Primary Care Provider] - Activity Restrictions/Additional Instructions: Your workup today revealed no obvious findings and your vitals are stable. Continue your home medications as directed by your doctor and return to the ER should you have any further concerns Print Language: Ukrainian Disposition Disposition: Home, Self Care Discharge Date/Time: 02/21/24 00:02
== END 2024-02-21 00:02 | disposition home or self-care (01) ==
PROVIDERS: Emergency Provider Emergency Medicine; PCP Family Medicine; Visit Provider Emergency Medicine
DX: F41.9 Anxiety disorder, unspecified (principal); F32.A Depression, unspecified; K21.9 Gastro-esophageal reflux disease without esophagitis; E66.9 Obesity, unspecified; Z86.69 Personal history of other diseases of the nervous system and sense organs
CPT/HCPCS: 80048; 81001; 81025; 83735; 85025; 96360; 99282; J7030; A4216

== ENCOUNTER 2024-11-16 01:05 | Emergency (ER) | payer MEDICARE, MEDICAID, SELFPAY ==
[2024-11-16 01:06] VITALS: BP 140/78; PULSE 89; RESP 19; TEMP 36.9; O2SAT 97; BMI 46.5
[2024-11-16 02:06] VITALS: BP 141/98; PULSE 89; RESP 26; O2SAT 98
--- NOTE | 2024-11-16 02:33 | RAD_ITS ---
PROCEDURE: THORACIC SPINE 3 VIEWS 11/16/2024 REASON FOR EXAM: PAIN TECHNIQUE: Two views thoracic spine COMPARISON: None available FINDINGS: Telemetry wire and clip on the AP view overlaps the spine. No fracture or malalignment. The disc spaces appear within limits. RAD/Thoracic Spine 3 Views IMPRESSION: No fracture or malalignment. Reading Location: [id number]
--- NOTE | 2024-11-16 02:33 | RAD_ITS ---
PROCEDURE: LUMBAR SPINE 2 OR 3 VIEWS 11/16/2024 REASON FOR EXAM: PAIN TECHNIQUE: 2 view(s) of the lumbar spine COMPARISON: None available FINDINGS: 5 [id number] lumbar vertebral body types identified. No fracture or malalignment. The disc spaces appear within limits. RAD/Lumbar Spine 2 or 3 Views IMPRESSION: No fracture or malalignment. Reading Location: [id number]
--- NOTE | 2024-11-16 02:33 | RAD_ITS ---
PROCEDURE: KNEE 3 VIEWS 11/16/2024 REASON FOR EXAM: PAIN TECHNIQUE: 3 view(s) of the right knee COMPARISON: None available FINDINGS: No fracture, dislocation or joint effusion. The joint spaces appear within limits. RAD/Knee 3 Views IMPRESSION: No fracture, dislocation or joint effusion. Reading Location: [id number]
[2024-11-16] MEDS: oxyCODONE 5 MG Tablet 10 MG PO (02:46)
[2024-11-16] MEDS: diazePAM 5 MG Tablet PO (02:47)
[2024-11-16 02:48] VITALS: BP 145/65; PULSE 69; RESP 18; O2SAT 98
--- NOTE | 2024-11-16 02:50 | RAD_ITS ---
PROCEDURE: ANKLE MIN 3 VIEWS 11/16/2024 REASON FOR EXAM: PAIN TECHNIQUE: 3 views of the right ankle COMPARISON: None available FINDINGS: No fracture or dislocation. The joint spaces appear within limits. Mild enthesopathic change at the Achilles side of the calcaneus. RAD/Ankle min 3 Views IMPRESSION: No fracture or dislocation. Reading Location: [id number]
[2024-11-16 03:00] VITALS: PULSE 79; RESP 18; O2SAT 97
--- NOTE | 2024-11-16 03:41 | EX.ED.DYSGE1 ---
HPI History of Present Illness Chief Complaint: Seizure Informant: patient and family Narrative Narrative: Patient is a 24-year-old female with past medical history of nonepileptic seizure disorder. She states that this evening she was sitting at her desk when she had a nonepileptic seizure she states this caused her to break the chair and fall. She states that after the event she noticed she had right ankle and knee pain as well as back pain. She states she was able to ambulate but it was painful to do so. She denies any recent bouts of nausea vomiting diarrhea or concern for . She denies any dysuria or concern for STD or UTI. She states that after her amount of seizure with the pain mainly in the right ankle she is concern for underlying injury and comes in for evaluation [facility] Medical History (Updated 11/16/24 @ 06:[address] Cong Noriega, ) PONV (postoperative nausea and vomiting) Post concussion syndrome Dietary restriction Leg cramps Chest pain GERD (gastroesophageal reflux disease) Migraines Seizures Allergic reaction (~10/22/22) Wears glasses Back pain Injury of head and neck Blackout History of hiatal hernia Gastric reflux Non-smoker Hip abductor tendonitis Depression Anxiety Home Medications ?Medication ?Instructions ?Recorded ?Last Taken ?Type ibuprofen 200 mg tablet 600 - 800 mg PO Q6H PRN PRN Pain 11/03/18 Unknown History ondansetron 4 mg disintegrating 4 mg PO Q8H PRN nausea and 07/19/22 Unknown Rx tablet vomiting #10 tabs fluoxetine 40 mg capsule (Prozac) 40 mg PO DAILY 09/14/22 Unknown History gabapentin 100 mg capsule 100 mg PO QHS 09/14/22 Unknown History hydroxyzine pamoate 25 mg capsule 30 mg PO PRN PRN Anxiety 09/14/22 Unknown History rimegepant 75 mg disintegrating 75 mg PO PRN PRN MIGRAINES 09/14/22 Unknown History tablet (Nurtec ODT) acetaminophen 500 mg tablet 1,000 mg (2 x 500 mg) PO Q6H PRN 08/11/23 Unknown Rx (Tylenol Extra Strength) pain #20 tabs buspirone 30 mg tablet 30 mg PO DAILY 10/20/23 Unknown History meclizine 25 mg tablet 25 mg PO DAILY PRN dizziness 10/20/23 Unknown History pantoprazole 40 mg tablet,delayed 40 mg PO DAILY #30 tabs 12/22/23 Unknown Rx release (Protonix) diphenhydramine HCl 25 mg tablet 50 mg PO QHS 02/20/24 Unknown History (Qiiwg-K-Xxvj) levonorgestrel 0.15 mg-ethinyl 1 tab PO DAILY 02/20/24 Unknown History estradiol 30 mcg tablets,3 mos pack(91) (Jolessa) topiramate 100 mg tablet 100 mg PO BID 02/20/24 Unknown History Allergy/AdvReac Type Severity Reaction Status Date / Time gluten Allergy Diarrhea Verified 11/16/24 01:06 milk (dairy) AdvReac Mild INDEGESTION Verified 11/16/24 01:06 azithromycin AdvReac Diarrhea Verified 11/16/24 01:06 Family History Mother Diabetes Cancer skin Thyroid disorder Father Diabetes Hypertension Surgical History History of wisdom tooth extraction History of cholecystectomy S/P cholecystectomy History of surgery on lower extremity Hx of tonsillectomy Social History Smoking Status: Never smoker alcohol intake: never ROS ROS ED Constitutional Constitutional ED: Denies chills or fever(s) Eyes Eyes: Denies blurry vision or change in vision ENT ENT ED: Denies sore throat Cardiovascular Cardiovascular: Denies chest pain or palpitations Respiratory/Chest Respiratory/Chest: Denies cough or dyspnea Gastrointestinal Gastrointestinal: Denies abdominal pain, diarrhea, nausea or vomiting Genitourinary Genitourinary ED: Denies dysuria, hematuria or urinary frequency Musculoskeletal Musculoskeletal: Reports back pain and other Details: Positive right knee and ankle pain Integumentary Denies Abrasions or rash Neurologic Neurologic: Denies headache(s) or paresthesias Hematologic/Lymphatic Hematologic/Lymphatic: Denies easy bleeding or easy bruising EXAM Physical Exam Const Vital Signs: 11/16/24 01:06 11/16/24 02:06 11/16/24 02:48 Temperature 98.4 F Temperature Source Oral Pulse Rate 89 89 69 Respiratory Rate 19 H 26 H 18 Blood Pressure 140/78 H 141/98 H 145/65 H Blood Pressure Mean 98 112 91 Pulse Ox 97 98 98 Oxygen Delivery Method Room Air Room Air Room Air 11/16/24 03:00 11/16/24 03:56 Temperature 97 F L Temperature Source Pulse Rate 79 74 Respiratory Rate 18 18 Blood Pressure 145/68 H Blood Pressure Mean 93 Pulse Ox 97 98 Oxygen Delivery Method Room Air Positive well nourished, well developed and obese General Appearance ED: well developed; Negative for pallor Nutritional Appearance: obese HEENT HEENT Narrative: Normocephalic atraumatic No tongue or cheek biting noted Eyes PERRL and EOMs intact bilaterally General Eye ED: Negative for scleral icterus Neck supple Neck Narrative: No nuchal rigidity or meningeal signs No bony deformity or step-off of the cervical spine no midline tenderness to palpation Chest Wall palpation of chest normal Resp normal respiratory effort and clear to auscultation bilaterally Cardio regular rate and regular rhythm Rate: other Other Details: Regular rate and rhythm without murmurs rubs or gallop Radial and carotid pulses are equal and symmetric GI normal to inspection, nondistended, normoactive bowel sounds, non-tender, non-distended and no masses GI Narrative: No voluntary guarding or rigidity or pulsatile mass Auscultation: normoactive bowel sounds Palpation: soft Back/Spine Back/Spine Narrative: No bony deformity or step-off of the thoracic or lumbar spine There is midline pain on palpation of the mid to lower thoracic as well as lower lumbar with palpation Extremity Extremity Narrative: Pelvis is stable there is no shortening or external rotation of either lower extremity There is mild soft tissue swelling along the medial aspect of the right ankle without obvious bony deformity or joint effusion. Achilles tendon is intact ankle ligaments are stable. There is also pain on palpation along the right anterior knee without bony deformity or joint effusion. Patellar tendon is intact and the ligaments are stable All compartments are soft and compressible going against compartment syndrome Neuro oriented x3, CN's II-XII intact bilaterally and no sensory deficits noted Sensorium / Orientation: alert Psych mental status grossly normal Skin no rashes or lesions noted and no wounds General Skin Exam: Negative for jaundice or pallor MDM MDM MDM Narrative Medical decision making narrative: Patient arrived to the ER slightly hypertensive but otherwise with stable vitals. She reports a history of nonepileptic seizure disorder and states she had 1 this evening. She does not have signs of head trauma she does not have signs of tongue or cheek biting and she denied any postictal phase and therefore I do feel this was a nonepileptic seizure and as there is history of it there is no need for further intervention. History and exam do not suggest an infectious process such as UTI or STD or complication. I have low concern for hyponatremia or clinically significant electrolyte abnormality as she has not had bouts of nausea vomiting or diarrhea. As patient has multiple areas of pain there is concern for fracture versus dislocation versus contusion. Therefore x-rays were obtained. These revealed no signs of acute trauma. The patient had no further bouts of seizure activity while in the ER. Therefore this time his vitals are stable neurologic exam is normal and x-rays confirm no underlying trauma I do not feel there is need for further workup and she is otherwise safe for discharge History & Record Review Discussion w/independent historian: Patient and Family Radiography Diagnostic Testing: Clinical Impression(s) from Imaging Studies Knee X-Ray 11/16/24 02:33 IMPRESSION: No fracture, dislocation or joint effusion. Reading Location: [facility] Lumbar Spine X-Ray 11/16/24 02:33 IMPRESSION: No fracture or malalignment. Reading Location: [facility] Thoracic Spine X-Ray 11/16/24 02:33 IMPRESSION: No fracture or malalignment. Reading Location: [facility] Ankle X-Ray 11/16/24 02:50 IMPRESSION: No fracture or dislocation. Reading Location: [facility] X-ray of the thoracic and lumbar spine as interpreted by the emergency medicine physician reveals no acute compression fracture or spondylolisthesis Right knee x-ray as interpreted by the emergency medicine physician reveals no acute fracture dislocation or joint effusion Right ankle x-ray as interpreted by the emergency medicine physician reveals no acute fracture joint effusion or dislocation Discharge Plan Triage Chief Complaint: Seizure ED Provider: Cong Noriega Dx/Rx/DC Orders Clinical Impression: Psychogenic nonepileptic seizure, Contusion of multiple sites, Celiac disease, Anxiety and depression Instructions: Seizure Affects on Body, Bone Contusion Prescriptions: No Action pantoprazole [Protonix] 40 mg tablet,delayed release (DR/EC) 40 mg PO DAILY Qty: 30 6RF ibuprofen 200 MG tablet 600 - 800 mg PO Q6H PRN PRN (Reason: Pain) ondansetron 4 mg tablet,disintegrating 4 mg PO Q8H PRN (Reason: nausea and vomiting) Qty: 10 0RF fluoxetine [Prozac] 40 mg capsule 40 mg PO DAILY gabapentin 100 mg capsule 100 mg PO QHS hydroxyzine pamoate 25 mg capsule 30 mg PO PRN PRN (Reason: Anxiety) Patient Comments: TAKE 1 CAPSULE BY MOUTH EVERY 4 HOURS NEEDED FOR ANXIETY, NOT TO EXCEED 3 DOSES IN A 24 HOUR PERIOD Nurtec ODT 75 mg tablet,disintegrating 75 mg PO PRN PRN (Reason: MIGRAINES) acetaminophen [Tylenol Extra Strength] 500 mg tablet 1,000 mg PO Q6H PRN (Reason: pain) Qty: 20 0RF topiramate 100 mg tablet 100 mg PO BID levonorgestrel-ethinyl estrad [Jolessa] 0.15 mg-30 mcg (91) tablets,dose pack,3 month 1 tab PO DAILY diphenhydramine HCl [Fqoch-M-Tpmr] 25 mg tablet 50 mg PO QHS buspirone 30 mg tablet 30 mg PO DAILY meclizine 25 mg tablet 25 mg PO DAILY PRN (Reason: dizziness) Patient Comments: TAKE 1 TABLET BY MOUTH THREE TIMES DAILY FOR 5 DAYS Primary Care Provider: Fani Fisher Referrals: Fani Fisher MD [Primary Care Provider] - Activity Restrictions/Additional Instructions: Please continue all of your home medication as directed by your doctor. Your workup today showed no sign of acute fracture or dislocation. Return to the ER should you have any further concerns Print Language: Syriac Disposition Disposition: Home, Self Care Discharge Date/Time: 11/16/24 03:59
[2024-11-16 03:56] VITALS: BP 145/68; PULSE 74; RESP 18; TEMP 36.1; O2SAT 98
== END 2024-11-16 03:59 | disposition home or self-care (01) ==
PROVIDERS: Emergency Provider Emergency Medicine; PCP Family Medicine; Visit Provider Emergency Medicine
DX: F44.5 Conversion disorder with seizures or convulsions (principal); F41.9 Anxiety disorder, unspecified; K90.0 Celiac disease; M25.571 Pain in right ankle and joints of right foot; F32.A Depression, unspecified; E66.9 Obesity, unspecified; M54.9 Dorsalgia, unspecified; Z90.49 Acquired absence of other specified parts of digestive tract; W07.XXXA Fall from chair, initial encounter; K21.9 Gastro-esophageal reflux disease without esophagitis
CPT/HCPCS: 72072; 72100; 73562; 73610; 99282

== ENCOUNTER 2025-04-14 19:39 | Emergency (ER) | payer MEDICARE, MEDICAID, SELFPAY ==
[2025-04-14 19:40] VITALS: BP 125/83; PULSE 106; RESP 15; TEMP 36.4; O2SAT 96
--- NOTE | 2025-04-14 20:17 | CT_ITS ---
PROCEDURE: BRAIN/HEAD WITHOUT CONTRAST 04/14/2025 REASON FOR EXAM: TRAUMA Nipple optic seizure. Fall. TECHNIQUE: Procedure Code: CTBR Modality: CT Procedure: BRAIN/HEAD WITHOUT CONTRAST Coronal and Sagittal reconstruction series were provided. One or more dose reduction techniques were used (e.g., Automated exposure control, adjustment of the mA and/or kV according to patient size, use of iterative reconstruction technique. RADIATION DOSE SUMMARY: CTDlvol: 67 mGy DLP: 1284 mGycm COMPARISON: December 22, 2023 FINDINGS: Brain: There is no evidence of hemorrhage, acute ischemia or mass. No extra- axial fluid collection, midline shift or mass effect. CSF Spaces: Normal Sinuses/Mastoids: Clear Bones: No fracture CT/Brain/Head without Contrast IMPRESSION: No acute intracranial abnormality Reading Location: [id number]
--- NOTE | 2025-04-14 20:17 | RAD_ITS ---
PROCEDURE: KNEE 4 OR MORE VIEWS 04/14/2025 REASON FOR EXAM: INJURY TECHNIQUE: Procedure Code: RADKN Modality: DX Procedure: KNEE 4 OR MORE VIEWS Laterality: Left COMPARISON: Contralateral knee FINDINGS: Bones: No fracture Joints: Minimal spurring superior and inferior poles of the patella. Medial and lateral compartments are normal. Effusion: No effusion. Soft tissues: Soft tissues are unremarkable. RAD/Knee 4 or More Views IMPRESSION: No acute abnormality Reading Location: [id number]
--- NOTE | 2025-04-14 20:19 | EDS_ITS ---
HPI History of Present Illness Chief Complaint: Seizure Informant: patient and parent Onset/Context/Timing Onset: Today Context: Sudden Onset Timing: Intermittent Current Severity: Moderate Maximum Severity: Moderate Narrative Narrative: 25-year-old female history of migraines and pseudoseizures or nonepileptic seizures. Reportedly was at [employer] with the family. She has a distressed there triggered her to have a nonepileptic seizure. Family was in the store but not beside her they heard her fall and found her on the floor. She had a brief loss of conscious less than 20 seconds. She is complaining of pain to her left posterior scalp, left shoulder and left knee. She is not on blood thinners. She has not been recently ill. Prior similar symptoms: Yes Recent Illness/Hospitalization: No PFSH PFSH Medical History PONV (postoperative nausea and vomiting) Post concussion syndrome Dietary restriction Leg cramps Chest pain GERD (gastroesophageal reflux disease) Migraines Seizures Allergic reaction (~10/22/22) Wears glasses Back pain Injury of head and neck Blackout History of hiatal hernia Gastric reflux Non-smoker Hip abductor tendonitis Depression Anxiety Home Medications ?Medication ?Instructions ?Recorded ?Last Taken ?Type ibuprofen 200 mg tablet 600 - 800 mg PO Q6H PRN PRN Pain 11/03/18 Unknown History ondansetron 4 mg disintegrating 4 mg PO Q8H PRN nausea and 07/19/22 Unknown Rx tablet vomiting #10 tabs fluoxetine 40 mg capsule (Prozac) 40 mg PO DAILY 09/14 Unknown History gabapentin 100 mg capsule 100 mg PO QHS 09/14/22 Unkno wn History hydroxyzine pamoate 25 mg capsule 30 mg PO PRN PRN Anx iety 09/14/22 Unknown History rimegepant 75 mg disintegrating 75 mg PO PRN PRN MIGRA NAOMI 09/14/22 Unknown History tablet (Nurtec ODT) acetaminophen 500 mg tablet 1,000 mg (2 x 500 mg) PO Q 6H PRN 08/11/23 Unknown Rx (Tylenol Extra Strength) pain #20 tabs buspirone 30 mg tablet 30 mg PO DAILY 10/20/23 Unkn own History meclizine 25 mg tablet 25 mg PO DAILY PRN dizziness 10/20/23 Unknown History pantoprazole 40 mg tablet,delayed 40 mg PO DAILY #30 t abs 12/22/23 Unknown Rx release (Protonix) diphenhydramine HCl 25 mg tablet 50 mg PO QHS 02/20/24 Unknown History (Vasxo-K-Liut) levonorgestrel 0.15 mg-ethinyl 1 tab PO DAILY 02/20/24 Unknown History estradiol 30 mcg tablets,3 mos pack(91) (Jolessa) topiramate 100 mg tablet 100 mg PO BID 02/20/24 Unkno wn History Allergy/AdvReac Type Severity Reaction Status Date / Time gluten Allergy Diarrhea Verified 04/14/25 19:45 milk (dairy) AdvReac Mild INDEGESTION Verified 04/14/25 19:45 azithromycin AdvReac Diarrhea Verified 04/14/25 19:45 Family History Mother Diabetes Cancer skin Thyroid disorder Father Diabetes Hypertension Surgical History History of wisdom tooth extraction History of cholecystectomy S/P cholecystectomy History of surgery on lower extremity Hx of tonsillectomy Social History Smoking Status: Never smoker alcohol intake: never ROS ROS ED ROS Narrative Denies recent illness. Constitutional Constitutional ED: Denies chills or fever(s) Eyes Eyes: Denies blurry vision ENT ENT ED: Denies ear pain Cardiovascular Cardiovascular: Denies chest pain Respiratory/Chest Respiratory/Chest: Denies cough or dyspnea Gastrointestinal Gastrointestinal: Denies abdominal pain Genitourinary Genitourinary ED: Denies dysuria or hematuria Musculoskeletal Musculoskeletal: Denies arthralgias Integumentary Denies abscess Neurologic Neurologic: Denies headache(s) Endocrine Endocrinology: Denies cold intolerance Hematologic/Lymphatic Hematologic/Lymphatic: Reports none Allergic/Immunologic Allergic/Immunologic ED: Denies mouth swelling, tongue swelling or urticaria EXAM Physical Exam Narrative Exam Narrative: 25-year-old female vital signs are stable afebrile. She is in no acute distress. Sitting upright in bed. Family is at bedside. H EENT exam pupils round react light. Motions are intact. Moist mucous membranes. No facial trauma. No bruising or tenderness. No laceration or tongue. Dentition intact. She complains of tenderness left lateral posterior scalp there is no laceration or significant hematoma. C-spine and neck nontender. Back nontender. Lungs clear to auscultation bilaterally. Heart regular rhythm no murmur. Chest wall and ribs nontender. Abdomen soft nontender. Pelvic girdle intact. Mild tenderness left iliac crest. She is moving all 4 extremities. No deformity. Normal residential treatment staff today. Normal dorsi plantarflexion. She complains of tenderness to her left posterior shoulder but is not dislocated. And also to her left knee. ACL PCL are intact.'s are MCL and LCL. There is no effusion. She has full flexion extension. Extensor mechanism is intact. Normal dorsi plantarflexion. The right upper and right lower extremity are nontender. Neurologically she is awake alert. Answer questions following commands. No focal motor deficits. GCS of 15. Const Vital Signs: 04/14/25 19:40 04/14/25 20:40 04/14/25 21:00 Temperature 97.6 F L Temperature Source Oral Pulse Rate 106 H 96 92 Respiratory Rate 15 20 H 22 H Blood Pressure 125/83 H 140/96 H Blood Pressure Mean 97 110 Pulse Ox 96 96 100 Oxygen Delivery Method Room Air Room Air Room Air Positive well nourished and well developed; Negative for cachectic, contractures or unkempt General Appearance ED: well developed and NAD; Negative for unkempt, cachectic, contractures, cyanotic or diaphoretic Nutritional Appearance: Negative for cachectic HEENT Reports moist mucous membranes HEENT Narrative: Left posterior scalp. No significant hematoma or laceration trauma and tenderness Eyes PERRL and EOMs intact bilaterally Neck no lymphadenopathy, supple and no JVD General: Negative for tenderness Chest Wall inspection of chest normal and palpation of chest normal Resp normal respiratory effort and clear to auscultation bilaterally Effort and Inspection: Negative for retractions Auscultation: Negative for rales, rhonchi, wheezes or diminished lung sounds Cardio regular rate, regular rhythm, S1 normal heart sound, S2 normal heart sound and no murmurs GI normal to inspection, nondistended, normoactive bowel sounds, non-tender, non- distended and no masses Inspection: Negative for abdominal distention Palpation: soft; Negative for tender, guarding or rebound tenderness present Back/Spine no CVA tenderness Back/Spine Narrative: Mild tenderness left iliac crest. No bruising. No deformity. General Back: Negative for CVA tenderness Cervical Spine: Negative for cervical spine tenderness Thoracic Spine / Upper Back: Negative for thoracic spinal tenderness Lumbar Spine / Lower Back: Negative for lumbar spinal tenderness Extremity normal to inspection Extremity Narrative: Tenderness left posterior shoulder but no dislocation. Normal Tenderness left knee no effusion. Full flexion extension. ACL PCL, MCL and LCL appear to be intact. Extensor mechanism is intact. General Extremety ED: Yes tenderness; Negative for edema General Extremity: Negative for edema Neuro oriented x3, CN's II-XII intact bilaterally and no sensory deficits noted Sensorium / Orientation: alert Motor Exam: strength 5/5 throughout Psych mental status grossly normal Appearance: Negative for unkempt Skin no rashes or lesions noted, no wounds and skin turgor normal General Skin Exam: elasticity normal; Negative for jaundice Lesions: No lesion noted Rashes: No rashes noted Trauma: Negative for abrasion Wounds: Negative for wounds noted MDM MDM MDM Narrative Medical decision making narrative: 25-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 Reportedly had a pseudoseizure at a store fell hit her head and had a brief LOC for 15 to 20 seconds. Complaining of pain over primarily her left shoulder and left knee. X-ray of the shoulder and knee will be obtained but I clinically have a low suspicion at this time for fracture and clinically the not dislocated. I will CT of her head due to the trauma and LOC. I do not think she needs any labs. Tylenol for pain. Repeat exam patient is doing well at 9:30 PM. She will be discharged to home. Outpatient follow-up as needed. History & Record Review Discussion w/independent historian: Patient and Family Additional record(s) reviewed:: Prior inpatient record, Prior outpatient record, Prior ED visit and Prior labs Radiography Diagnostic Testing: Clinical Impression(s) from Imaging Studies Brain CT 04/14/25 20:17 IMPRESSION: No acute intracranial abnormality Reading Location: [facility] Left shoulder x-ray multiple views interpreted by myself shows no acute abnormality. No fracture. No dislocation. Left knee x-ray 4 views interpreted by myself shows no fracture, no dislocation and no significant effusion. I did go over the x-rays with the patient family. Discharge Plan Triage Chief Complaint: Seizure ED Provider: Ld Gay Dx/Rx/DC Orders Clinical Impression: Psychogenic nonepileptic seizure, Fall, Acute head trauma, Contusion of left shoulder, Contusion of knee, left Instructions: ED Contusion, Lower Extremity, ED Head Injury (Adult), ED Shoulder Bruise Prescriptions: No Action pantoprazole [Protonix] 40 mg tablet,delayed release (DR/EC) 40 mg PO DAILY Qty: 30 6RF ibuprofen 200 MG tablet 600 - 800 mg PO Q6H PRN PRN (Reason: Pain) ondansetron 4 mg tablet,disintegrating 4 mg PO Q8H PRN (Reason: nausea and vomiting) Qty: 10 0RF fluoxetine [Prozac] 40 mg capsule 40 mg PO DAILY gabapentin 100 mg capsule 100 mg PO QHS hydroxyzine pamoate 25 mg capsule 30 mg PO PRN PRN (Reason: Anxiety) Patient Comments: TAKE 1 CAPSULE BY MOUTH EVERY 4 HOURS NEEDED FOR ANXIETY, NOT TO EXCEED 3 DOSES IN A 24 HOUR PERIOD Nurtec ODT 75 mg tablet,disintegrating 75 mg PO PRN PRN (Reason: MIGRAINES) acetaminophen [Tylenol Extra Strength] 500 mg tablet 1,000 mg PO Q6H PRN (Reason: pain) Qty: 20 0RF topiramate 100 mg tablet 100 mg PO BID levonorgestrel-ethinyl estrad [Jolessa] 0.15 mg-30 mcg (91) tablets,dose pa ck,3 month 1 tab PO DAILY diphenhydramine HCl [Cincx-A-Dofl] 25 mg tablet 50 mg PO QHS buspirone 30 mg tablet 30 mg PO DAILY meclizine 25 mg tablet 25 mg PO DAILY PRN (Reason: dizziness) Patient Comments: TAKE 1 TABLET BY MOUTH THREE TIMES DAILY FOR 5 DAYS Primary Care Provider: Fani Fisher Referrals: Fani Fisher MD [Primary Care Provider] - 1 Week if not improving Activity Restrictions/Additional Instructions: Ice to your left shoulder, left knee and back. Motrin and Tylenol for pain. Follow-up with your primary care provider as needed. Print Language: Estonian Disposition Disposition: Home, Self Care
[2025-04-14 20:40] VITALS: BP 140/96; PULSE 96; RESP 20; O2SAT 96
--- NOTE | 2025-04-14 20:40 | RAD_ITS ---
PROCEDURE: SHOULDER MIN 2 VIEWS 04/14/2025 REASON FOR EXAM: PAIN POST FALL TECHNIQUE: Procedure Code: RADSH Modality: DX Procedure: SHOULDER MIN 2 VIEWS Laterality: Left COMPARISON: None FINDINGS: Bones: No fracture Joints: Normal alignment of the acromioclavicular and glenohumeral joints. Soft tissues: Normal RAD/Shoulder min 2 Views IMPRESSION: No acute abnormality Reading Location: [id number]
--- OUTSIDE RECORDS SUMMARY | 2025-04-14 20:57 | XMS RPT_ITS | CCD ---
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 Name Role Phone WEYAND, ANIL Unavailable Unavailable PLAYL, SANDOVAL M Unavailable Unavailable PLAYL, SANDOVAL M Unavailable Unavailable WEYAND, ANIL Unavailable Unavailable PLAYL, SANDOVAL M Unavailable Unavailable PLAYL, SANDOVAL M Unavailable Unavailable TORRES, CECY Unavailable Unavailable PLAYL, SANDOVAL M Unavailable Unavailable PLAYL, SANDOVAL M Unavailable Unavailable JACOBS, IAM N Unavailable Unavailable TORRES, CECY Unavailable Unavailable PLAYL, SANDOVAL M Unavailable Unavailable WEYAND, ANIL Unavailable Unavailable PLAYL, SANDOVAL M Unavailable Unavailable PLAYL, SANDOVAL M Unavailable Unavailable WEYAND, ANIL Unavailable Unavailable PLAYL, SANDOVAL M Unavailable Unavailable PLAYL, SANDOVAL M Unavailable Unavailable TORRES, CECY Unavailable Unavailable PLAYL, SANDOVAL M Unavailable Unavailable PLAYL, SANDOVAL M Unavailable Unavailable WEYAND, ANIL Unavailable Unavailable PLAYL, SANDOVAL M Unavailable Unavailable FANI BAEZ Unavailable Unavailable Unavailable Primary Care Provider Angelia BAEZ MD, DR HAWKINS A Primary Care Physician SASHA BERNARDO, DR HAWKINS A Primary Care Physician Sandoval Hogan MD Primary Care Provider Sandoval Hogan MD Primary Care Provider GREG ROBLES Referring Unavailable EMMANUELLE LIVE Attending Unavailable EDISON, SANDOVAL Erin Primary Care Unavailable SASHA BERNARDO, DR HAWKINS A Primary Care Physician SASHA BERNARDO, DR HAWKINS A Primary Care Unavailmdaai REAVES MD, ALPA Hdz Attending Unavailable SASHA BERNARDO, DR HAWKINS A Primary Care UnavailJANAK Bee DO Attending Unavailable SASHA BERNARDO, DR HAWKINS A Primary Care Unavailabl e DIMITRIS MORRISON, DR CLAUDIA Grant Attending Unavailable SASHA BERNARDO, DR FANI Chun Primary Care Unavailmadai e JULIANN MORRISON, HEATH Attending Unavailable SASHA BERNARDO, DR FANI Chun Primary Care Unavailmadai YANG MD, DR ARIZMENDI Attending Unavailabl e Edison BERNARDO, Sandoval Khan Primary Care Provider Unavailable Primary Care Provider UnavailFLOR Shields Attending Unavailable FANI BAEZ Primary Care Unavailable Sasha BERNARDO, Fani Larson Primary Care Provider PLAYL, SANDOVAL M Primary Care Unavailable NOA SARAVIA Referring Unavailable PLAYL, SANDOVAL M Primary Care Unavailable NOA SARAVIA Referring Unavailable PLAYL, SANDOVAL M Primary Care Unavailable SASHA, FANI JAVON Primary Care Unavailable HYACINTH GONSALES Attending Unavailable SELF Referring Unavailable FANI BAEZ JAVON Primary Care Unavailable Mildred Mcintyre Primary Care Provider Fani Baez MD Primary Care Provider Rucki, Fani Primary Care Unavailable Cong Noriega Attending Unavailable Friend, Cali Attending Unavailable Rucki, Fani Primary Care Unavailable Rucki, Fani Referring Unavailable Rucki, Fani Primary Care Unavailable Friend, Cali Consulting Unavailable Friend, Cali Attending Unavailable Ruckkriss, Fani Referring Unavailable Friend, Cali Attending Unavailable Rucki, Fani Primary Care Unavailable Rucki, Fani Referring Unavailable Cong Noriega Attending Unavailable Rucki, Fani Primary Care Unavailable Cong Noriega Attending Unavailable Rucki, Fani Primary Care Unavailable Keith Parker Attending Unavailable Rucki, Fani Primary Care Unavailable Flor Salguero Attending Unavailable Rucki, Fani Primary Care Unavailable EDGAR, CORAL BIKAT Attending Unavailable SASHA, FANI JAVON Primary Care Unavailable EDGAR, CORAL BIKAT Attending Unavailable SASHA, FANI JAVON Primary Care Unavailable CRISTEL PABLO Admitting Unavailmadai e EDISON, SANDOVAL Erin Primary Care Unavailable COREY ONEIL Attending Unavailable EDGAR, CORAL BIKAT Attending Unavailable GAVIOTACKI, FANI JAVON Primary Care Unavailable EDGAR, CORAL BIKAT Attending Unavailable RUCKI, FANI JAVON Primary Care Unavailable EDGAR, CORAL BIKAT Attending Unavailable RUCKI, FANI JAVON Primary Care Unavailable LOCK, EDWIN Attending Unavailable RUCKI, FANI JAVON Primary Care Unavailable LOCK, EDWIN Attending Unavailable RUCKI, FANI JAVON Primary Care Unavailable LOCK, EDWIN Attending Unavailable SANDOVAL HOGAN Primary Care Unavailable EDGAR, CORAL BIKAT Attending Unavailable RUCKKriss, FANI Attending Unavailable RUCKI, FANI Referring Unavailable RUCKI, FANI Primary Care Unavailable BAVIS, FREDDIE Attending Unavailable BAVIS, FREDDIE Referring Unavailable RUCKI, FANI Primary Care Unavailable BAVIS, FREDDIE Attending Unavailable RUCKI, FANI Primary Care Unavailable BAVIS, FREDDIE Attending Unavailable RUCKKriss, FANI Referring Unavailable MILDRED MCINTYRE Primary Care Unavailable SASHA BERNARDO, DR FANI Chun Primary Care Unavailabl e ANTHONY MORRISON, JANAK Attending Unavailable SASHA BERNARDO, DR FANI Chun Primary Care Unavailabl e MAURICIO ALEXANDER DO Attending Unavailable SASHA BERNARDO, DR FANI Chun Primary Care Unavailabl ra REAVES MD, ALPA Hdz Attending Unavailable SASHA BERNARDO, DR FANI Chun Primary Care Unavailabl e TSERING MONTERO DO Attending Unavailable SASHA BERNARDO, DR FANI Chun Primary Care Unavailabl e HEATH HUMPHREYS DO Attending Unavailable SASHA BERNARDO, DR FANI Chun Primary Care Unavailabl e KATIANA FLORENTINO DO Attending Unavailable Allergies Allergy Classification Reported Allergen(s) Allergy Type Date of Onset Reaction(s) Facility (20 sources) azithromycin; Translations: [AZITHROMYCIN] Drug Allergy 3 Other (See Comments), Diarrhea [facility] Repository (20 sources) SUMAtriptan; Translations: [SUMATRIPTAN] Drug Allergy 2 Vomiting, Nausea And Vomiting [facility] (10 sources) Gluten Food allergy [facility] (10 sources) Dairy products Food allergy [facility] (8 sources) Erenumab-Aooe Propensity to adverse reactions 5 [facility] (1 source) Gluten Drug allergy (disorder) 5 [facility] Repository (1 source) Milk Drug allergy (disorder) 5 [facility] Repository Medications Current Medications Medication Drug Class(es) Dates Sig (Normalized) Sig (Original) acetaminophen 500 mg oral tablet (9 sources) take 1 tablet by mouth every six hours as needed acetaminophen (Tylenol) 500 MG tablet Take 500 mg by mouth every 6 hours as needed. Active End: 01-26-2020 take 2 tablets by mouth every six hours as needed for pain acetaminophen (TYLENOL) 325 MG tablet Take 650 mg by mouth every 6 hours as needed for Pain 0 01/26/2020 Discontinued (LIST CLEANUP) acetaminophen 325 mg / butalbital 50 mg / caffeine 40 mg oral tablet (2 sources) Barbiturate, Central Nervous System Stimulant, Methylxanthine Start: 04-17-2022 End: 04-22-2022 take 1 tablet by mouth every six hours as needed APAP/butalbital/caffeine 325-50-40 mg oral tablet (Fioricet) Dose = 1 tab(s), Oral, q6h, PRN as needed, X 5 day(s), # 12 tab(s), 0 Refill(s) Start Date: 04/17/22 Stop Date: 04/22/22 Status: Ordered Start: 03-20-2022 End: 03-23-2022 take 1 tablet by mouth every four hours as needed APAP/butalbital/caffeine 325-50-40 mg or al tablet (Fioricet) Dose = 1 tab(s), Oral, q4h, PRN as needed, X 3 day(s), # 18 tab(s), 0 Refill(s), Migraine Start Date: 03/20/22 Stop Date: 03/23/22 Status: Ordered albuterol MDI (90 mcg/inh) CFC free inhalation aerosol (18 sources) Start: 05-21-2022 take 1 puff(s) by inhalation four times daily as needed for wheezing albuterol MDI (90 mcg/inh) CFC free inhalation aerosol 1 puff(s), Inhalation, QID, PRN as needed for wheezing, # 18 gram(s), 0 Refill(s) Start Date: 05/21/22 Status: Ordered Medication Dispense Status: Completed Quantity: 18.0 Unit: g Total Allowed Fills: 1 Fills Dispensed: 0 Start: 05-21-2022 take 1 puff(s) by in halation four times daily as needed for wheezing albuterol MDI (90 mcg/inh) CFC free inhalation aerosol 1 puff(s), Inhalation, QID, PRN as needed for wheezing, # 18 gram(s), 0 Refill(s) Start Date: 05/21/22 Status: Ordered Quantity: 18.0 Unit: g Repeat number: 1 Start: 05-21-2022 take 1 puff(s) by in halation four times daily as needed for wheezing albuterol MDI (90 mcg/inh) CFC free inhalation aerosol 1 puff(s), Inhalation, QID, PRN as needed for wheezing, # 18 gram(s), 0 Refill(s) Start Date: 05/21/22 Status: Ordered amoxicillin 875 mg / clavulanate 125 mg oral tablet (2 sources) Penicillin-class Antibacterial Start: 05-27-2022 End: 06-06-2022 take 1 tablet by mouth every twelve hours amoxicillin-clavulanate 875 mg-125 mg oral tablet 1 tab(s), Oral, q12h, X 10 day(s), # 20 tab(s), 0 Refill(s), 06/06/22 4:07:00 EDT, 91 Start Date: 05/27/22 Stop Date: 06/06/22 Status: Ordered Start: 05-01-2022 End: 05-06-2022 take 1 tablet by mouth twice daily amoxicillin-clavulanic acid (AUGMENTIN) 875-125 mg per tablet Take 1 tablet by mouth twice daily for 5 days. 10 tablet 0 05/01/2022 05/06/2022 Active Comment on above: Take 1 tablet by amaya twice daily for 5 days. cholecalciferol 0.125 mg oral tablet (19 sources) Vitamin D Start: 07-27-20 take 1 tablet by mouth once daily cholecalciferol (VITAMIN D-3) 5,000 unit tab Take 1 tablet by mouth once daily. 07/27/2022 Active take 1 capsule by mouth once jesse ly Cholecalciferol (VITAMIN D3) 5000 units CAPS Take 5,000 Units by mouth daily 0 Active Comment on above: Take 1 tablet by amaya th once daily. clonazePAM 0.5 mg oral tablet (20 sources) Benzodiazepine Start: 02-01-2019 End: 01-26-2020 clonazePAM 0.5 mg oral tablet Dose : 0.5 mg = 1 tab(s), Oral, TID, 0 Refill(s) Start Date: 02/01/19 Status: Ordered Medication Dispense Status: Completed Total Allowed Fills: 1 Fills Dispensed: 0 cyclobenzaprine hydrochloride 7.5 mg oral tablet (20 sources) Muscle Relaxant Start: 02-01-2019 cyclobenzaprine 7.5 mg oral tablet Dose : 7.5 mg = 1 tab(s), Oral, TID, PRN as needed for spasm, # 15 tab(s), 0 Refill(s) Start Date: 02/01/19 Status: Ordered Medication Dispense Status: Completed Quantity: 15.0 Unit: tab(s) Total Allowed Fills: 1 Fills Dispensed: 0 Start: 07-28-2018 End: 01-25-2020 take 1 tablet by mouth three times daily as needed for pain cyclobenzaprine (FLEXERIL) 10 MG tablet Take 10 mg by mouth 3 times daily as needed for Muscle spasms (back pain) 0 07/28/2018 01/25/2020 Discontinued desogestrel 0.15 mg / ethinyl estradiol 0.03 mg oral tablet (9 sources) Progestin, Estrogen desogestrel- ethinyl estradiol (Apri) 0.15-30 MG-MCG tablet Take 1 tablet by mouth. Active Desogestrel-Ethi nyl Estradiol (APRI) 0.15-0.03 mg per tablet Take 1 tablet by mouth. Active take 1 tablet by amaya th once daily, then take 0.15-30 tablets by mouth once desogestrel-ethinyl estradiol (APRI) 0.1 5-30 MG-MCG per tablet Take 1 tablet by mouth daily RAOUL 0 Active DULoxetine 20 mg delayed release oral capsule (12 sources) Serotonin and Norepinephrine Reuptake Inhibitor Start: 08-24-2024 CYMBALTA 20 mg capsule 08/24/2024 Active famotidine 20 mg oral tablet (6 sources) Histamine-2 Receptor Antagonist Start: 07-22-2022 End: 08-05-2022 take 1 tablet by mouth twice daily famotidine (PEPCID) 20 mg tablet Take 1 tablet by mouth twice daily for 14 days. 28 tablet 0 07/22/2022 08/05/2022 Active Comment on above: Take 1 tablet by [facility] twice daily for 14 days. gabapentin 100 mg oral capsule (20 sources) Anti-epileptic Agent Start: 02-01-2019 End: 04-09-2024 gabapentin 100 mg oral capsule Dose : 200 mg = 2 cap(s), Oral, BID, # 120 cap(s), 0 Refill(s) Start Date: 02/01/19 Status: Ordered Medication Dispense Status: Completed Quantity: 120.0 Unit: cap(s) Total Allowed Fills: 1 Fills Dispensed: 0 take 1 capsule by [facility] once daily at bedtime gabapentin (NEURONTIN) 300 mg capsule Ta ke 300 mg by mouth daily at bedtime. Active take 2 capsules by mouth once da neva gabapentin (NEURONTIN) 100 MG capsule Take 200 mg by mouth nightly. 0 Active Comment on above: Take 1 capsule by [facility] daily at bedtime. Magnesium (1 source) take 1 tablet by mouth once daily Magnesium 500 MG TABS Take 500 mg by mouth daily 0 Active meclizine hydrochloride 25 mg oral tablet (1 source) Antiemetic Start: 4 End: 4 meclizine 25 mg oral tablet Dose : 25 mg = 1 tab(s), Oral, TID, X 5 day(s), # 15 tab(s), 0 Refill(s), 09/09/23 12:07:00 AM EST Start Date: 09/04/23 Stop Date: 09/09/23 Status: Ordered melatonin 5 mg oral tablet (8 sources) take 1 tablet by mouth once daily in the evening melatonin 5 MG tablet Take 1 tablet by mouth every evening. Active Miralax Powder Packet (1 source) Start: 1 End: 1 take 17 doses by mouth twice daily Miralax Powder Packet Dose : 17 gram(s) =, Oral, BID, X 7 day(s), # 255 gram(s), 0 Refill(s), 07/05/21 20:28:00 EST Start Date: 06/28/21 Stop Date: 07/05/21 Status: Ordered naproxen 500 mg oral tablet (2 sources) Nonsteroidal Anti-inflammatory Drug Start: 3 End: 3 naproxen 500 mg oral tablet Dose : 500 mg = 1 tab(s), Oral, BID, # 14 tab(s), 0 Refill(s), 11/15/22 13:03:00 EDT, Migraine Start Date: 11/14/22 Stop Date: 11/15/22 Status: Ordered End: 01-25-2020 naproxen sodium (ANAPROX) 22 0 MG tablet Take 440 mg by mouth as needed for Pain 0 01/25/2020 Discontinued nitrofurantoin, macrocrystals 25 mg / nitrofurantoin, monohydrate 75 mg oral capsule (2 sources) Nitrofuran Antibacterial Start: 10-08-2024 End: 10-15-2024 take 1 capsule by mouth twice daily nitrofurantoin monohydrate and macrocrystal (MACROBID) 100 mg capsule Indications: Acute cystitis with hematuria Take 1 capsule by mouth two times a day for 7 days. 14 capsule 10/08/2024 10/15/2024 Active pantoprazole 40 mg delayed release oral tablet (20 sources) Proton Pump Inhibitor Start: 07-19-2022 End: 04-09-2024 pantoprazole 40 mg oral enteric coated tablet 0 Refill(s) Start Date: 09/12/22 Status: Ordered Medication Dispense Status: Completed Total Allowed Fills: 1 Fills Dispensed: 0 Comment on above: Take 40 mg by mouth once daily. Take 1 tablet by amaya th once daily. phenazopyridine hydrochloride 200 mg oral tablet (1 source) Start: 10-08-2024 End: 10-11-2024 take 1 tablet by mouth three times daily as needed phenazopyridine (PYRIDIUM) 200 mg tablet Indications: Acute cystitis with hematuria Take 1 tablet by mouth three times a day as needed for up to 3 days. 6 tablet 10/08/2024 10/11/2024 Active prochlorperazine 10 mg oral tablet (1 source) Phenothiazine Start: 11-14-2022 End: 11-15-2022 prochlorperazine 10 mg oral tablet Dose : 10 mg = 1 tab(s), Oral, QID, # 20 tab(s), 0 Refill(s), 11/15/22 13:04:00 EDT, Migraine Start Date: 11/14/22 Stop Date: 11/15/22 Status: Ordered rimegepant 75 mg disintegrating oral tablet (20 sources) Start: 09-12-2022 End: 04-06-2025 Nurtec ODT 75 mg oral tablet, disintegrating 0 Refill(s) Start Date: 09/12/22 Status: Ordered Medication Dispense Status: Completed Total Allowed Fills: 1 Fills Dispensed: 0 Start: 07-05-2022 NURTEC ODT 75 mg disintegrating tablet Take 1 tablet by mouth every 48 hours as needed. 07/05/2022 Active Comment on above: Take 1 tablet by amaya th every 48 hours as needed. sucralfate 100 mg/ml oral suspension (20 sources) Aluminum Complex Start: 07-19-2022 take 10 mL by mouth twice daily 1 hour(s) before mealtime sucralfate (CARAFATE) 100 mg/mL suspension TAKE 10 ML (CC) BY MOUTH TWICE DAILY ON AN EMPTY STOMACH 1 HOUR BEFORE MEALS 07/19/2022 Active take 10 mL by mouth at bedtime a s needed sucralfate (Carafate) 1 GM/10ML suspension 10 ml Orally ac and hs prn Active Comment on above: TAKE 10 ML (CC) BY M OUTH TWICE DAILY ON AN EMPTY STOMACH 1 HOUR BEFORE MEALS topiramate 100 mg oral tablet (20 sources) Start: 11-16-2024 End: 02-14-2025 take 1 tablet by mouth twice daily topiramate (Topamax) 100 MG tablet Indications: Intractable migraine with aura without status migrainosus Take 1 tablet (100 mg) by mouth 2 times daily. 180 tablet 3 11/16/2024 Active Start: 01-01-2018 End: 04-09-2024 Topamax 50 mg oral tablet Do se : 50 mg = 1 tab(s), Oral, BID, 0 Refill(s) Start Date: 01/01/18 Status: Ordered Medication Dispense Status: Completed Total Allowed Fills: 1 Fills Dispensed: 0 Start: 01-01-2018 Topamax 50 mg oral tablet Dose : 50 mg = 1 tab(s), Oral, BID, 0 Refill(s) Start Date: 01/01/18 Status: Ordered take 1 tablet by amaya th once daily topiramate (TOPAMAX) 100 MG tablet Take 100 mg by mouth nightly 0 Active Comment on above: Take 1 tablet by amaya th twice daily. traZODone hydrochloride 50 mg oral tablet (1 source) Serotonin Reuptake Inhibitor Start: 01-29-2020 take 1 tablet by mouth once daily as needed for sleep traZODone (DESYREL) 50 MG tablet Take 1 tablet by mouth nightly as needed for Sleep 30 tablet 0 01/29/2020 Active Vitamin B Complex (4 sources) vitamin B comple x (SUPER B COMPLEX ORAL) Active Completed/Discontinued Medications Medication Drug Class(es) Dates Sig (Normalized) Sig (Original) [id number] 200 actuat albuterol 0.09 mg/actuat metered dose inhaler (7 sources) beta2-Adrenergic Agonist Start: 01-05-2018 End: 07-27-2022 take 2 puff(s) by inhalation every four hours as needed albuterol HFA (PROVENTIL HFA, VENTOLIN HFA) 90 mcg/actuation inhaler Inhale 2 Puffs as instructed every 4 hours as needed. 1 Inhaler 0 01/05/2018 07/27/2022 Discontinued Comment on above: Inhale 2 Puffs as in structed every 4 hours as needed. Amphetamine / Dextroamphetamine (2 sources) Central Nervous System Stimulant Start: 06-28-2021 amphetamine-dextr oamphetamine 20 mg oral capsule, extended release Dose : 20 mg = 1 cap(s), Oral, qAM, 0 Refill(s), 97.3 Start Date: 06/28/21 Status: Ordered End: 01-29-2020 Amphetamine-Dextroamphetamin e (ADDERALL XR PO) Take by mouth daily 0 01/29/2020 Discontinued (Stop Taking at Discharge) 24 hr amphetamine aspartate 5 mg / amphetamine sulfate 5 mg / dextroamphetamine saccharate 5 mg / dextroamphetamine sulfate 5 mg extended release oral capsule (20 sources) Central Nervous System Stimulant Start: 04-16-2022 End: 07-27-2022 amphetamine-dextroamphetamin e XR (ADDERALL XR) 20 mg 24 hr capsule Start: 06-28-2021 amphetamine-de xtroamphetamine 20 mg oral capsule, extended release Dose : 20 mg = 1 cap(s), Oral, qAM, 0 Refill(s), 97.3 Start Date: 06/28/21 Status: Ordered Medication Dispense Status: Completed Total Allowed Fills: 1 Fills Dispensed: 0 Start: 06-28-2021 End: 04-09-2024 take 1 capsule by mouth once daily amphetamine-dextroamphetamine XR (ADDERA LL XR) 20 mg 24 hr capsule Take 1 capsule by mouth once daily. 06/28/2021 04/09/2024 Discontinued (Discontinued by another Health Care Provider) Comment on above: Take 1 capsule by [facility] once daily. B Xeqbabb-S-Dmlbx Acid (SUPER B COMPLEX/FA/VIT C) TABS (1 source) End: 0 take 1 tablet by mouth once daily B Kmaiupn-W-Xczpd Acid (SUPER B COMPLEX/FA/VIT C) TABS Take 1 tablet by mouth daily 0 01/26/2020 Discontinued (LIST CLEANUP) benzonatate 100 mg oral capsule (18 sources) Non-narcotic Antitussive Start: 2 End: 2 benzonatate 100 mg oral capsule Dose : 100 mg = 1 cap(s), Oral, TID, PRN as needed for cough, # 21 cap(s), 0 Refill(s) Start Date: 05/21/22 Stop Date: 05/28/22 Status: Ordered Medication Dispense Status: Completed Quantity: 21.0 Unit: cap(s) Total Allowed Fills: 1 Fills Dispensed: 0 bisacodyl 10 mg rectal suppository (1 source) Stimulant Laxative Start: 1 End: 1 Dulcolax Laxative 10 mg rectal suppository Dose : 10 mg = 1 supp, Rectal, Daily, X 5 day(s), # 5 supp, 0 Refill(s), 07/03/21 20:29:00 EST Start Date: 06/28/21 Stop Date: 07/03/21 Status: Ordered busPIRone hydrochloride 30 mg oral tablet (20 sources) Start: 0 End: 2 busPIRone HCl 30 mg tablet Start: 02-01-2019 End: 01-29-2020 busPIRone 15 mg oral tablet Dose : 15 mg = 1 tab(s), Oral, TID, # 270 tab(s), 0 Refill(s) Start Date: 02/01/19 Status: Ordered Medication Dispense Status: Completed Quantity: 270.0 Unit: tab(s) Total Allowed Fills: 1 Fills Dispensed: 0 Start: 07-28-2018 End: 01-25-2020 take 1 tablet by mouth twice daily as needed for anxiety busPIRone (BUSPAR) 7.5 MG tablet Take 7.5 mg by mouth 2 times daily as needed (anxiety/panic attacks) 0 07/28/2018 01/25/2020 Discontinued Comment on above: Take 1 tablet by amaya twice daily. diclofenac sodium 0.03 mg/mg topical gel (1 source) Nonsteroidal Anti-inflammatory Drug Start: 8 End: 0 diclofenac (SOLARAZE) 3 % gel Apply 1 applicator topically 2 times daily Apply topically 2 times daily. 0 07/28/2018 01/25/2020 Discontinued dicyclomine hydrochloride 10 mg oral capsule (15 sources) Anticholinergic Start: 2 End: 2 dicyclomine 10 mg oral capsule Dose : 10 mg = 1 cap(s), Oral, QID, # 20 cap(s), 0 Refill(s) Start Date: 07/16/22 Stop Date: 07/21/22 Status: Ordered Medication Dispense Status: Completed Quantity: 20.0 Unit: cap(s) Total Allowed Fills: 1 Fills Dispensed: 0 diphenhydrAMINE hydrochloride 50 mg oral capsule (1 source) Histamine-1 Receptor Antagonist Start: 3 End: 3 diphenhydrAMINE 50 mg (BENADRYL) Start: 08-15-2022 End: 08-15-2022 diphenhydrAMINE 50 mg (BENAD RYL) doxycycline hyclate 100 mg oral capsule (18 sources) Tetracycline-class Drug Start: 05-21-2022 End: 05-30-2022 doxycycline hyclate 100 mg oral capsule Dose : 100 mg = 1 cap(s), Oral, BID, # 20 cap(s), 0 Refill(s), 91 Start Date: 05/21/22 Stop Date: 05/30/22 Status: Ordered Medication Dispense Status: Completed Quantity: 20.0 Unit: cap(s) Total Allowed Fills: 1 Fills Dispensed: 0 1 ml erenumab-aooe 140 mg/ml auto-injector (14 sources) Start: 06-10-2022 End: 04-09-2024 AIMOVIG AUTOINJECTOR 140 mg/mL auto-injector 06/10/2022 04/09/2024 Discontinued (Discontinued by another Health Care Provider) Ethinyl Estradiol / Levonorgestrel (20 sources) Progestin, Estrogen, Progestin-containing Intrauterine Device Start: 03-26-2022 End: 07-27-2022 levonorgestrel-ethi nyl estradiol 0.15 mg-30 mcg (91) per tab, 3 month pack Start: 03-26-2022 levonorgestrel -ethinyl estradiol 0.15 mg-30 mcg (91) per tab, 3 month pack End: 10-19-2024 take 1 tablet by mouth once, then take 1 tablet by mouth every three months levonorgestrel-ethinyl estradiol 0.15 mg-30 mcg (91) per tab, 3 month pack Take 1 tablet by mouth as directed. 10/19/2024 Discontinued take 1 tablet by amaya th once, then take 1 tablet by mouth every three months levonorgestrel-ethinyl estradiol 0.15 mg-30 mcg (91) per tab, 3 month pack Take 1 tablet by mouth as directed. Suspended take 1 tablet by amaya th once, then take 1 tablet by mouth every three months levonorgestrel-ethinyl estradiol (JOLESSA) 0.15 mg-30 mcg (91) per tab, 3 month pack Take 1 tablet by mouth once daily. Suspended take 1 tablet by amaya th once, then take 1 tablet by mouth every three months levonorgestrel-ethinyl estradiol 0.15 mg-30 mcg (91) per tab, 3 month pack Take 1 tablet by mouth as directed. Active take 1 tablet by amaya th once, then take 1 tablet by mouth every three months levonorgestrel-ethinyl estradiol (JOLESSA) 0.15 mg-30 mcg (91) per tab, 3 month pack Take 1 tablet by mouth once daily. Active take 1 tablet by amaya th once, then take 1 tablet by mouth every three months levonorgestrel-ethinyl estradiol 0.15 mg-30 mcg (91) per tab, 3 month pack Take 1 tablet by mouth as directed. 0 Active take 1 tablet by amaya th once, then take 1 tablet by mouth every three months levonorgestrel-ethinyl estradiol (JOLESSA) 0.15 mg-30 mcg (91) per tab, 3 month pack Take 1 tablet by mouth as directed. 0 Active Comment on above: Take 1 tablet by [facility] as directed. FLUoxetine 10 mg oral capsule (20 sources) Serotonin Reuptake Inhibitor Start: 2 End: 5 take 1 capsule by mouth once daily FLUoxetine (PROZAC) 40 mg capsule Take 1 capsule by mouth once daily. 07/17/2022 10/08/2024 Discontinued (Course of therapy completed) Start: 02-13-2018 End: 10-08-2024 FLUoxetine 10 mg oral capsul e Dose : 10 mg = 1 cap(s), Oral, qDay, # 30 cap(s), 0 Refill(s) Start Date: 02/01/19 Status: Ordered Medication Dispense Status: Completed Quantity: 30.0 Unit: cap(s) Total Allowed Fills: 1 Fills Dispensed: 0 Start: 02-13-2018 End: 07-27-2022 FLUoxetine (PROZAC) 20 mg ca psule Indications: Social phobia , Generalized anxiety disorder , Moderate episode of recurrent major depressive disorder (HCC) , Somatoform disorder Take the 20 mg cap along with the 10 mg cap to total 30 mg daily, by mouth. 30 capsule 3 02/13/2018 07/27/2022 Discontinued Comment on above: Take the 20 mg cap a long with the 10 mg cap to total 30 mg daily, by mouth. Take 10 mg cap along with the 20 mg cap total 30 mg daily by mouth Take 1 capsule by [facility] once daily. fluticasone propionate 0.05 mg/actuat metered dose nasal spray (7 sources) Corticosteroid Start: 01-12-20 End: 07-27-20 take 1 spray(s) nasal route once daily fluticasone (FLONASE) 50 mcg/actuation nasal spray Use 1 Colt in each nostril once daily. 1 Bottle 0 01/11/2018 07/27/2022 Discontinued Comment on above: Use 1 Colt in each nostril once daily. hydrOXYzine pamoate 25 mg oral capsule (20 sources) Antihistamine Start: 07-16-20 End: 07-27-20 hydrOXYzine pamoate (VISTARIL) 25 mg capsule Comment on above: Take 1 capsule by [facility] twice daily as needed. ibuprofen 600 mg oral tablet (16 sources) Nonsteroidal Anti-inflammatory Drug Start: 01-02-20 End: 07-27-20 take 1 tablet by mouth every six hours as needed ibuprofen (MOTRIN) 600 mg tablet Take 600 mg by mouth four times daily as needed. 0 01/01/2018 07/27/2022 Discontinued take 1 tablet by mouth three gee es daily ibuprofen 200 MG tablet Take 200 mg by mouth 3 times daily. Active Comment on above: Take 600 mg by mouth four times daily as needed. 2 ml ketorolac tromethamine 30 mg/ml injection (1 source) Nonsteroidal Anti-inflammatory Drug, Cyclooxygenase Inhibitor Start: 08-15-2022 End: 08-15-2022 keTORolac 60 mg injection (TORADOL) Start: 08-15-2022 End: 08-15-2022 keTORolac 60 mg injection (T ORADOL) methylPREDNISolone Dosepak 4 mg tablet (18 sources) Start: 05-21-2022 End: 05-26-2022 take 1 tablet by mouth once daily methylPREDNISolone Dosepak 4 mg tablet 1 packet(s), Oral, qDay, as directed on package labeling, # 21 tab(s), 0 Refill(s) Start Date: 05/21/22 Stop Date: 05/26/22 Status: Ordered Medication Dispense Status: Completed Quantity: 21.0 Unit: tab(s) Total Allowed Fills: 1 Fills Dispensed: 0 Start: 05-21-2022 End: 05-26-2022 methylPREDNISolone Dosepak 4 mg tablet 1 packet(s), Oral, qDay, as directed on package labeling, # 21 tab(s), 0 Refill(s) Start Date: 05/21/22 Stop Date: 05/26/22 Status: Ordered Quantity: 21.0 Unit: tab(s) Repeat number: 1 Start: 05-21-2022 End: 05-26-2022 methylPREDNISolone Dosepak 4 mg tablet 1 packet(s), Oral, qDay, as directed on package labeling, # 21 tab(s), 0 Refill(s) Start Date: 05/21/22 Stop Date: 05/26/22 Status: Ordered ondansetron 4 mg disintegrating oral tablet (20 sources) Serotonin-3 Receptor Antagonist Start: 08-15-2022 End: 08-15-2022 ondansetron orally disintegrating 4 mg tab(s) (ZOFRAN ODT) Start: 02-13-2018 End: 07-19-2022 take 1 tablet by mouth every four hours for nausea and vomiting ondansetron orally disintegrating (ZOFRAN ODT) 4 mg disintegrating tablet dissolve 1 tablet ON TONGUE every 4 hours if needed for nausea and vomiting 60 tablet 2 02/13/2018 Active take 1 tablet by amaya th every eight hours as needed for nausea ondansetron ODT (Zofran-ODT) 4 MG disintegrating tablet DISSOLVE 1 TABLET IN MOUTH EVERY 8 HOURS NEEDED FOR NAUSEA Active Comment on above: dissolve 1 tablet ON TONGUE every 4 hours if needed for nausea and vomiting predniSONE 20 mg oral tablet (1 source) End: 01-25-20 20 take 1 tablet by mouth twice daily predniSONE (DELTASONE) 20 MG tablet Take 20 mg by mouth 2 times daily 0 01/25/2020 Discontinued 24 hr QUEtiapine 50 mg extended release oral tablet (8 sources) Atypical Antipsychotic Start: 02-14-20 18 End: 07-27-20 22 take 2 tablets by mouth once daily at bedtime QUEtiapine XR (SEROQUEL XR) 50 mg Tb24 Indications: Social phobia , Generalized anxiety disorder , Moderate episode of recurrent major depressive disorder (HCC) , Somatoform disorder Take 2 tablets by mouth daily at bedtime. 60 tablet 3 02/13/2018 07/27/2022 Discontinued Comment on above: Take 2 tablets by mo uth daily at bedtime. SUMAtriptan 100 mg oral tablet (7 sources) Serotonin-1b and Serotonin-1d Receptor Agonist Start: 02-14-20 18 End: 07-27-20 22 SUMAtriptan (IMITREX) 100 mg tablet Take 1 tablet by mouth as needed for Migraine Headache (see administration instructions). 18 tablet 2 02/13/2018 07/27/2022 Discontinued Comment on above: Take 1 tablet by amaya th as needed for Migraine Headache (see administration instructions). Problems Active Problems Problem Classification Problem Date Documented Da te Episodic/Chronic Abdominal hernia (1 source) Hiatal hernia; Translations: [Diaphragmatic hernia without obstruction or gangrene] Episodic Anxiety disorders (20 sources) Social phobia; Translations: [Social phobia, unspecified] Onset: 4 02-06-2014 Chronic Conditions associated with dizziness or vertigo (6 sources) Dizziness and giddiness; Translations: [Dizziness and giddiness] Onset: 4 Episodic Esophageal disorders (8 sources) Gastroesophageal reflux disease; Translations: [Gastro-esophageal reflux disease without esophagitis] Onset: 2 Chronic Fluid and electrolyte disorders (1 source) Dehydration; Translations: [Dehydration] Episodic Genitourinary symptoms and ill-defined conditions (3 sources) Dysuria; Translations: [Dysuria] Onset: 5 Episodic Headache; including migraine (15 sources) Migraine; Translations: [Migraine, unspecified, not intractable, without status migrainosus] Onset: 2 Chronic Headache; including migraine (20 sources) Headache; Translations: [Headache] Onset: 0 12-15-2017 Episodic Headache; including migraine (3 sources) Headache; including migraine; Translations: [Acute nonintractable headache, unspecified headache type] Onset: 8 Miscellaneous mental health disorders (20 sources) Somatoform disorder; Translations: [Somatoform disorder, unspecified] Onset: 5 02-05-2015 Chronic Mood disorders (20 sources) Depressive disorder; Translations: [Severe recurrent major depression without psychotic features] Onset: 0 01-25-2020 Chronic Nausea and vomiting (1 source) Vomiting; Translations: [Vomiting, unspecified] Onset: 4 Episodic Other ear and sense organ disorders (1 source) Impacted cerumen in left ear; Translations: [Impacted cerumen, left ear] Onset: 4 Episodic Other gastrointestinal disorders (1 source) Celiac disease; Translations: [Celiac disease] Onset: 4 Chronic Other gastrointestinal disorders (1 source) Constipation, unspecified; Translations: [Constipation, unspecified] Onset: 1 Episodic Other gastrointestinal disorders (1 source) Diarrhea; Translations: [Diarrhea, unspecified] Episodic Other injuries and conditions due to external causes (1 source) Unspecified injury of head, initial encounter; Translations: [Closed head injury, initial encounter] Onset: 4 Episodic Other liver diseases (3 sources) Enzyme level - finding; Translations: [Abnormal levels of other serum enzymes] Onset: 5 03-27-2025 Episodic Other liver diseases (1 source) Abnormal levels of other serum enzymes; Translations: [Abnormal levels of other serum enzymes] Onset: 5 Episodic Other nervous system disorders (2 sources) Numbness of lower limb ; Translations: [Anesthesia of skin] 11-16-2024 Episodic Other non-traumatic joint disorders (1 source) Pain in right ankle and joints of right foot; Translations: [Pain in right ankle and joints of right foot] Onset: 5 Episodic Other nutritional; endocrine; and metabolic disorders (20 sources) Obesity; Translations: [Obesity, unspecified] Onset: 5 01-21-2015 Chronic Other nutritional; endocrine; and metabolic disorders (9 sources) Body mass index 40+ - severely obese; Translations: [Morbid (severe) obesity due to excess calories] Onset: 4 04-29-2024 Chronic Other upper respiratory infections (1 source) Bacterial sinusitis; Translations: [Chronic sinusitis, unspecified] Chronic Otitis media and related conditions (1 source) Otitis media; Translations: [Otitis media, unspecified, unspecified ear] Onset: 2 Episodic Residual codes; unclassified (6 sources) Obstructive sleep apnea syndrome; Translations: [Obstructive sleep apnea (adult) (pediatric)] 11-16-2024 Chronic Residual codes; unclassified (2 sources) Obstructive sleep apnea (adult) (pediatric); Translations: [Obstructive sleep apnea (adult) (pediatric)] Onset: 5 Chronic Urinary tract infections (3 sources) Acute pyelonephritis; Translations: [Acute pyelonephritis] Onset: 5 Episodic Past or Other Problems Problem Classification Problem Date Documented Da te Episodic/Chronic Abdominal pain (15 sources) Abdominal pain; Translations: [Unspecified abdominal pain] Onset: 06-15-2007 Resolved: 09-29-2011 Episodic Acquired foot deformities (20 sources) Acquired equinus deformity of foot; Translations: [Other acquired deformities of unspecified foot] Onset: 06-16-2009 06-16-2009 Episodic Allergic reactions (1 source) Other adverse food reactions, not elsewhere classified, initial encounter; Translations: [Other adverse food reactions, not elsewhere classified, initial encounter] Onset: 12-22-2023 Episodic Epilepsy; convulsions (15 sources) Seizure; Translations: [Unspecified convulsions] Onset: 04-09-2024 04-09-2024 Episodic Intracranial injury (20 sources) Concussion injury of body structure; Translations: [Concussion with loss of consciousness of unspecified duration, initial encounter] Onset: 04-21-2015 07-15-2015 Episodic Nonspecific chest pain (2 sources) Chest pain; Translations: [Chest pain, unspecified] Onset: 11-29-2023 Episodic Other bone disease and musculoskeletal deformities (12 sources) Juvenile osteochondritis; 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] Onset: 06-16-2009 Resolved: 09-29-2011 09-29-2011 Chronic Other congenital anomalies (12 sources) Other congenital malformations of lower limb(s), including pelvic girdle; Translations: [Other anomalies of lower limb, including pelvic girdle] Onset: 06-08-2004 Resolved: 09-29-2011 09-29-2011 Chronic Other connective tissue disease (20 sources) Disorder of Achilles tendon; Translations: [Achilles tendinitis, unspecified leg] Onset: 06-16-2009 06-16-2009 Episodic Other lower respiratory disease (20 sources) Dyspnea on exertion; Translations: [Shortness of breath] Onset: 01-21-2015 01-21-2015 Episodic Other nervous system disorders (2 sources) Anesthesia of skin; Translations: [Anesthesia of skin] Onset: 11-16-2024 Episodic Residual codes; unclassified (1 source) Illness, unspecified; Translations: [Illness, unspecified] Onset: 03-08-2024 Episodic Spondylosis; intervertebral disc disorders; other back problems (3 sources) Neck pain; Translations: [Cervicalgia] Onset: 11-16-2024 11-16-2024 Episodic Syncope (20 sources) Syncope; Translations: [Syncope and collapse] Onset: 09-11-2012 09-11-2012 Episodic Results Test Name Value Interpretation Reference Range Facility US ABDOMEN LIMITEDon 03-27- 025 US ABDOMEN LIMITED Patient Name: DONNIE MALDONADO : 2000 Exam Date/Time: 03/27/2025 08:37 Procedure: US ABDOMEN LIMITED Ordering Provider: BAEZ PAMELA Reason For Exam: ELEVATED LIVER ENZYMES EXAMINATION: Right upper quadrant ultrasound. EXAM DATE AND TIME: 03/27/2025 8:37 AM EDT INDICATION: ELEVATED LIVER ENZYMES ADDITIONAL INFORMATION: None COMPARISON: None LIMITATIONS: As below TECHNIQUE: Ultrasound real-time scan with image documentation of the right upper quadrant including the liver and pancreas was performed. Color Doppler imaging was also employed. FINDINGS: LIVER Echogenicity: There is increased hepatic parenchymal echogenicity and coarsening of the hepatic parenchymal echotexture. Surface nodularity: Not visualized. Masses (size and location): None. GALLBLADDER Surgically absent. BILE DUCTS Evaluation is limited due to overlying bowel gas artifact. Intrahepatic ducts: No biliary dilation Common bile duct: Normal caliber. Diameter: 2.7 mm PANCREAS Evaluation is limited due to overlying bowel gas artifact. RIGHT KIDNEY Size: 10.7 x 4.6 x 4.5 cm Renal cortex: Normal. Hydronephrosis: None. Calculi, cysts or masses: None. OTHER FINDINGS None. IMPRESSION: 1. Hepatic steatosis. 2. Status post cholecystectomy. Report Dictated on Electronically Signed By: Jay Romeo MD Electronically Signed Date/Time: 03/27/2025 3:46 PM EDT [facility] US Abdomen limitedon 025 1. Hepatic steatosis . 2. Status post cholecystectomy. Report Dictated on Electronically Signed By: Jay Romeo MD Electronically Signed Date/Time: 03/27/2025 3:46 PM EDT [facility] Patient Name: DONN[facility]AD[facility] : 2000 [id number] Exam Date/Time: 03/27/2025 08:37 Procedure: US ABDOMEN LIMITED Ordering Provider: BAEZ PAMELA Reason For Exam: ELEVATED LIVER ENZYMES EXAMINATION: Right upper quadrant ultrasound. EXAM DATE & TIME: 03/27/2025 8:37 AM EDT INDICATION: ELEVATED LIVER ENZYMES ADDITIONAL INFORMATION: None COMPARISON: None LIMITATIONS: As below TECHNIQUE: Ultrasound real-time scan with image documentation of the right upper quadrant including the liver and pancreas was performed. Color Doppler imaging was also employed. FINDINGS: LIVER Echogenicity: There is increased hepatic parenchymal echogenicity and coarsening of the hepatic parenchymal echotexture. Surface nodularity: Not visualized. Masses (size and location): None. GALLBLADDER Surgically absent. BILE DUCTS Evaluation is limited due to overlying bowel gas artifact. Intrahepatic ducts: No biliary dilation Common bile duct: Normal caliber. Diameter: 2.7 mm PANCREAS Evaluation is limited due to overlying bowel gas artifact. RIGHT KIDNEY Size: 10.7 x 4.6 x 4.5 cm Renal cortex: Normal. Hydronephrosis: None. Calculi, cysts or masses: None. OTHER FINDINGS None. [facility] Jay Romeo MD - 03/27/2025 Patient Name: DONNIE MALDONADO : 2000 Exam Date/Time: 03/27/2025 08:37 Procedure: US ABDOMEN LIMITED Ordering Provider: BAEZ PAMELA Reason For Exam: ELEVATED LIVER ENZYMES EXAMINATION: Right upper quadrant ultrasound. EXAM DATE & TIME: 03/27/2025 8:37 AM EDT INDICATION: ELEVATED LIVER ENZYMES ADDITIONAL INFORMATION: None COMPARISON: None LIMITATIONS: As below TECHNIQUE: Ultrasound real-time scan with image documentation of the right upper quadrant including the liver and pancreas was performed. Color Doppler imaging was also employed. FINDINGS: LIVER Echogenicity: There is increased hepatic parenchymal echogenicity and coarsening of the hepatic parenchymal echotexture. Surface nodularity: Not visualized. Masses (size and location): None. GALLBLADDER Surgically absent. BILE DUCTS Evaluation is limited due to overlying bowel gas artifact. Intrahepatic ducts: No biliary dilation Common bile duct: Normal caliber. Diameter: 2.7 mm PANCREAS Evaluation is limited due to overlying bowel gas artifact. RIGHT KIDNEY Size: 10.7 x 4.6 x 4.5 cm Renal cortex: Normal. Hydronephrosis: None. Calculi, cysts or masses: None. OTHER FINDINGS None. IMPRESSION: 1. Hepatic steatosis. 2. Status post cholecystectomy. Report Dictated on Electronically Signed By: Jay Romeo MD Electronically Signed Date/Time: 03/27/2025 3:46 PM EDT [facility] Radiology Study observation (narrative) [facility] [employer] US Abdomen limitedOrdered By : Jay Romeo on 03-27-2025 [facility] [employer] Work Phone: HEPATITIS PANEL, GENERALon 0 03-26-2025 HEPATITIS A AB, TOTAL Non-Reactive Normal NON-REACTI VE [facility] Comment on above: Result Comment: For additional information, please refer to http://[employer]/faq/NQO405 (This link is being provided for informational/ educational purposes only.) Performed By: #### 5 616, 6462, 259 #### [facility] [address], [address] [place] [address] [employer] Load Builder: Gautam Terrell MD HEPATITIS B CORE AB TOTAL Non-Reactive Normal NON-REACTI VE [facility] Comment on above: Result Comment: For additional information, please refer to http://[email or web address]/faq/DIL530 (This link is being provided for informational/ educational purposes only.) Performed By: #### 5 616, 6462, 259 #### [facility] [address], [address] [place] [address] [employer]: Gautam Terrell MD HEPATITIS B SURFACE ANTIBODY QL Non-Reactive Normal NON-REACTI VE [facility] Comment on above: Performed By: #### 5 616, 6462, 259 #### [facility] [address], [address] [place] [address] [employer]: Gautam Terrell MD HEPATITIS B SURFACE ANTIGEN Non-Reactive Normal NON-REACTI VE [facility] Comment on above: Result Comment: For additional information, please refer to [email or web address]faq/TKS781 (This link is being provided for informational/ educational purposes only.) Performed By: #### 5 616, 6462, 259 #### [facility] [address] , [address] [place] [address] [employer]: Gautam Terrell MD HEPATITIS C ANTIBODY Non-Reactive Normal NON-REACTI VE [facility] Comment on above: Result Comment: HCV antibody was non-reactive. There is no laboratory evidence of HCV infection. In most cases, no further action is required. However, if recent HCV exposure is suspected, a test for HCV RNA (test code 83400) is suggested. For additional information please refer to http://[employer]/faq/FAR07k2 (This link is being provided for informational/ educational purposes only.) Performed By: #### 5 616, 6462, 259 #### [facility] [address], [address] [place] [address] [employer]: Gautam Terrell MD IRON, TIBC AND FERRITIN PANE [place] 03-26-2025 % SATURATION 13 % (calc) Low 16-45 [facility] Comment on above: Order Comment: 0; 0; 0 FASTING:YES FASTING: YES Performed By: #### 5 616, 6462, 259 #### [facility] [address], [address] [place] [address] [employer]: Gautam Terrell MD Ferritin [Mass/Vol] 21 ng/mL Normal 16-154 [facility] Comment on above: Order Comment: 0; 0; 0 FASTING:YES FASTING: YES Performed By: #### 5 616, 6462, 259 #### [facility] [address], [address] [place] [address] [employer]: Gautam Terrell MD IRON BINDING CAPACITY 414 mcg/dL (calc) Normal 250-450 [facility] Comment on above: Order Comment: 0; 0; 0 FASTING:YES FASTING: YES Performed By: #### 5 616, 6462, 259 #### [facility] [address], [address] [place] [address] [employer]: Gautam Terrell MD IRON, TOTAL 54 mcg/dL Normal 40-190 [facility] Comment on above: Order Comment: 0; 0; 0 FASTING:YES FASTING: YES Performed By: #### 5 616, 6462, 259 #### [facility] [address], [address] [place] [address] [employer]: Gautam Terrell MD MITOCHONDRIAL ANTIBODY W/REF L TITERon 03-26-2025 MITOCHONDRIAL AB SCREEN Negative Normal NEGATIVE [facility] Comment on above: Performed By: #### 5 616, 6462, 259 #### [facility] [place] [address] [employer]: Gautam Terrell MD CBC (INCLUDES DIFF/PLT)on Basophils (Bld) [#/Vol] 0.05 10*3/uL Normal 0-200 [facility] Comment on above: Performed By: #### 7 600, 6399, 65672 #### [facility] of [place] [address] [employer]: Gautam Terrell MD Basophils/100 WBC (Bld) 0.5 % Normal [facility] Comment on above: Performed By: #### 7 600, 6399, 80031 #### [facility] [place] [address] [employer]: Gautam Terrell MD Eosinophils (Bld) [#/Vol] 1.08 10*3/uL High 15-500 [facility] Comment on above: Performed By: #### 7 600, 6399, 97262 #### [facility] [place] [address] [employer]: Gautam Terrell MD Eosinophils/100 WBC (Bld) 10.8 % Normal [facility] Comment on above: Performed By: #### 7 600, 6399, 54438 #### [facility] of [place] [address] [employer]: Gautam Terrell MD Erythrocyte distribution width (RBC) [Ratio] 13.4 % Normal 11.0-15.0 [facility] Comment on above: Performed By: #### 7 600, 6399, 99330 #### [facility] of [place] [address] [employer]: Gautam Terrell MD Hematocrit (Bld) [Volume fraction] 41.4 % Normal 35.0-45.0 [facility] Comment on above: Performed By: #### 7 600, 6399, 39118 #### [facility] of [address], [address] [place] [address] [employer]: Gautam Terrell MD Hemoglobin (Bld) [Mass/Vol] 13.3 g/dL Normal 11.7-15.5 [facility] Comment on above: Performed By: #### 7 600, 6399, 73616 #### [facility] of [address], [address] [place] [address] [employer] Builder: Gautam Terrell MD Lymphocytes (Bld) [#/Vol] 2.78 10*3/uL Normal 850-3900 [facility] Comment on above: Performed By: #### 7 600, 6399, 71170 #### [facility] of [place] [address] [employer]: Gautam Terrell MD Lymphocytes/100 WBC (Bld) 27.8 % Normal [facility] Comment on above: Performed By: #### 7 600, 6399, 85535 #### [facility] of [place] [address] [employer]: Gautam Terrell MD MCH (RBC) [Entitic mass] 29.9 pg Normal 27.0-33.0 [facility] Comment on above: Performed By: #### 7 600, 6399, 29504 #### [facility] of [place] [address] [employer]: Gautam Terrell MD MCHC (RBC) [Mass/Vol] 32.1 g/dL Normal 32.0-36.0 [facility] Comment on above: Result Comment: For adults, a slight decrease in the calculated MCHC value (in the range of 30 to 32 g/dL) is most likely not clinically significant; however, it should be interpreted with caution in correlation with other red cell parameters and the patient's clinical condition. Performed By: #### 7 600, 6399, 40472 #### [facility] [address] [address] [employer]: Gautam Terrell MD MCV (RBC) [Entitic vol] 93.0 fL Normal 80.0-100.0 [facility] Comment on above: Performed By: #### 7 600, 6399, 78280 #### [facility] of [place] [address] [employer]: Gautam Terrell MD Monocytes (Bld) [#/Vol] 0.36 10*3/uL Normal 200-950 [facility] Comment on above: Performed By: #### 7 600, 6399, 61090 #### [facility] of [place] [address] [employer]: Gautam Terrell MD Monocytes/100 WBC (Bld) 3.6 % Normal [facility] Comment on above: Performed By: #### 7 600, 63, 59999 #### [facility] of [place] [address] [employer]: Gautam Terrell MD Neutrophils (Bld) [#/Vol] 5.73 10*3/uL Normal 4785-1369 [facility] Comment on above: Performed By: #### 7 600, 6399, 81669 #### [facility] [place] [address] [employer]: Gautam Terrell MD Neutrophils/100 WBC (Bld) 57.3 % Normal [facility] Comment on above: Performed By: #### 7 600, 6399, 30363 #### [facility] of [place] [address] [employer]: Gautam Terrell MD Platelet mean volume (Bld) [Entitic vol] 7.9 fL Normal 7.5-12.5 [facility] Comment on above: Performed By: #### 7 600, 6399, 00918 #### [facility] of [place] [address] [employer]: Gautam Terrell MD Platelets (Bld) [#/Vol] 376 10*3/uL Normal 140-400 [facility] Comment on above: Performed By: #### 7 600, 6399, 60868 #### [facility] of [address], [address] [place] [address] [employer]: Gautam Terrell MD RBC (Bld) [#/Vol] 4.45 10*6/uL Normal 3.80-5.10 [facility] Comment on above: Performed By: #### 7 600, 6399, 57081 #### [facility] of [address] , [address] [place] [address] [employer]: Gautam Terrell MD WBC (Bld) [#/Vol] 10.0 10*3/uL Normal 3.8-10.8 [facility] Comment on above: Performed By: #### 7 600, 6399, 89390 #### [facility] of [address], [address] [place] [address] [employer]: Gautam Terrell MD [facility] 03-20-2025 ALBUMIN Normal [facility] Comment on above: Performed By: #### 7 600, 6399, 97748 #### [facility] of [address], [address] [place] [address] [employer]: Gautam Terrell MD ALBUMIN/GLOBULIN RATIO Normal [facility] Comment on above: Performed By: #### 7 600, 6399, 30680 #### [facility] of [address], [address] [place] [address] [employer] Supply Load Builder: Gautam Terrell MD ALKALINE PHOSPHATASE Normal [facility] Comment on above: Performed By: #### 7 600, 6399, [id number] #### [facility] of [address], [address] [place] [address] Linen Supply Load Builder: Gautam Terrell MD ALT Normal [facility] Comment on above: Performed By: #### 7 600, 6399, 23497 #### [facility] of [place] [address] [address] [place] , [address] [place] [address] Linen Supply Load Builder: Gautam Terrell MD AST Normal [facility] Comment on above: Performed By: #### 7 600, 6399, 43571 #### [facility] of [place] [address] [place] , [address] [place] [address] Linen Supply Load Builder: Gautam Terrell MD BILIRUBIN, TOTAL Normal [facility] Comment on above: Performed By: #### 7 600, 6399, 13236 #### [facility] of [place] [address] [place] , [address] [place] [address] Linen Supply Load Builder: Gautam Terrell MD BUN/CREATININE RATIO Normal [facility] Comment on above: Performed By: #### 7 600, 6399, 06813 #### [facility] of [place] [address] [place] , [address] [place] [address] Linen Supply Load Builder: Gautam Terrell MD CALCIUM Normal [facility] Comment on above: Performed By: #### 7 600, 6399, 24197 #### [facility] of [place] [address] [place] , [address] [place] [address] Linen Supply Load Builder: Gautam Terrell MD CARBON DIOXIDE Normal [facility] Comment on above: Performed By: #### 7 600, 6399, 05194 #### [facility] of [place] [address] [place] , [address] [place] [address] Linen Supply Load Builder: Gautam Terrell MD CHLORIDE Normal [facility] Comment on above: Performed By: #### 7 600, 6399, 25251 #### [facility] of [place] [address] [place] , [address] [place] [address] Linen Supply Load Builder: Gautam Terrell MD CREATININE Normal [facility] Comment on above: Performed By: #### 7 600, 6399, 06994 #### [facility] of [facility] [address], [address] [place] [address] Linen Supply Load Builder: Gautam Terrell MD EGFR Normal [facility] Comment on above: Performed By: #### 7 600, 6399, 87506 #### [facility] of [facility] [address], [address] [place] [address] Linen Supply Load Builder: Gautam Terrell MD GLOBULIN Normal [facility] Comment on above: Performed By: #### 7 600, 6399, 76217 #### [facility] of [address], [address] [place] [address] Linen Supply Load Builder: Gautam Terrell MD GLUCOSE Normal [facility] Comment on above: Performed By: #### 7 600, 6399, 79560 #### [facility] of [address], [address] [place] [address] Linen Supply Load Builder: Gautam Terrell MD POTASSIUM Normal [facility] Comment on above: Performed By: #### 7 600, 6399, 48372 #### [facility] of [address], [address] [place] [address] Linen Supply Load Builder: Gautam Terrell MD PROTEIN, TOTAL Normal [facility] Comment on above: Performed By: #### 7 600, 6399, 85728 #### [facility] of [address], [address] [place] [address] Linen Supply Load Builder: Gautam Terrell MD SODIUM Normal [facility] Comment on above: Performed By: #### 7 600, 6399, 37595 #### [facility] of [address], [address] [place] [address] Linen Supply Load Builder: Gautam Terrell MD UREA NITROGEN (BUN) Normal [facility] Comment on above: Performed By: #### 7 600, 6399, 35975 #### [facility] of [address], [address] [place] [address] Linen Supply Load Builder: Gautam Terrell MD LIPID PANEL, STANDARD 080 CHOL/HDLC RATIO Normal [facility] Comment on above: Order Comment: 0; 0; 0; 0 FASTING:YES FASTING: YES Performed By: #### 7 600, 6399, 76754 #### [facility] of [address], [address] [place] [address] Linen Supply Load Builder: Gautam Terrell MD CHOLESTEROL, TOTAL Normal [facility] Comment on above: Order Comment: 0; 0; 0; 0 FASTING:YES FASTING: YES Performed By: #### 7 600, 6399, 37119 #### [facility] of [address], [address] [place] [address] Linen Supply Load Builder: Gautam Terrell MD HDL CHOLESTEROL Normal [facility] Comment on above: Order Comment: 0; 0; 0; 0 FASTING:YES FASTING: YES Performed By: #### 7 600, 6399, 60697 #### [facility] of [address], [address] [place] [address] Linen Supply Load Builder: Gautam Terrell MD LDL-CHOLESTEROL Normal [facility] Comment on above: Order Comment: 0; 0; 0; 0 FASTING:YES FASTING: YES Performed By: #### 7 600, 6399, 06491 #### [facility] of [address], [address] [place] [address] Linen Supply Load Builder: Gautam Terrell MD NON HDL CHOLESTEROL Normal [facility] Comment on above: Order Comment: 0; 0; 0; 0 FASTING:YES FASTING: YES Performed By: #### 7 600, 6399, 45515 #### [facility] of [address], [address] [place] [address] Linen Supply Load Builder: Gautma Terrell MD TRIGLYCERIDES Normal [facility] Comment on above: Order Comment: 0; 0; 0; 0 FASTING:YES FASTING: YES Performed By: #### 7 600, 6399, 51651 #### [facility] of [place] [address] Linen Supply Load Builder: Gautam Terrell MD TSHon 03-20-2025 TSH Qn 1.33 m[IU]/L Normal [facility] Comment on above: Result Comment: Refe rence Range > or = 20 Years 0.40-4.50 Ranges First trimester 0.26-2.66 Second trimester 0.55-2.73 Third trimester 0.43-2.91 Performed By: #### 7 600, 6399, 90438 #### [facility] of [address], [address] [place] [address] Linen Supply Load Builder: Gautam Terrell MD Office Visiton 03-07-2025 Follow-up visit [id number] Donnie Maldonado 2000 F Date Provider Department Center 03/07/2025 [id number] RAMIREZ [facility] None Family History Problem Relation Age of Onset Other Paternal Grandmother Hypertension Paternal Grandmother Alzheimer's disease Paternal Grandmother Dementia Paternal Grandmother Depression Paternal Grandmother Mental illness Maternal Grandmother Depression Maternal Grandmother Migraines Maternal Grandmother Seizures Maternal Grandmother Parkinsonism Maternal Grandfather Hypertension Father Other Father Ataxia Father Depression Father Diabetes Mother Anxiety disorder Mother Fibromyalgia Mother Migraines Mother Cancer Paternal Grandfather Cancer Mother's Brother Anxiety disorder Father's Sister Depression Father's Sister Migraines Father's Sister Family Status - Relation Status Age at Paternal Grandmother Alive Maternal Grandmother Maternal Grandfather Father Alive Mother Alive Paternal Grandfather Mother's Brother Sister Notes: 2 adopted siblings Father's Sister Level of Service:31984 PA OFFICE/OUTPATIENT ESTABLISHED LOW MDM 20 MIN Reason for Visit and Comments: Follow-up [352768] Migraine [788706] Normal [facility] Progress Noteon 03-07-[address] [facility] [address] [facility] [address] [facility] [address] Dept: [phone] Dept Loc: [phone] Freddie Ramirez MD CHIEF COMPLAINT: Chief Complaint Patient presents with Follow-up Migraine HISTORY OF PRESENT ILLNESS: The patient is a 24 y.o. person who returns for her migraines. She reports that the [facility] has worked miracles. She reports that she has been Biorbital and bioccipital. Throbbing. Is the BAUER longer than four hours? Yes (Migraine) Photophobia? Yes (Migraine) Phonophobia? Yes (Migraine) Nausea/Vomiting? Yes, has to take Zofran (Migraine) Exacerbated by Movement? Yes Blurry vision with headaches. Dizziness with headaches. She reports that she is having less than 8 days of migraine per month [facility] She has tried sumatriptan and naratriptan and they failed. Aimovig caused rash. She has not had a chance to have a sleep study as of yet. Still daytime sleepiness. She reports that she has dizziness and balance issues. She feels that heat and a fan blowing on her contributes to her dizziness. Past Medical History: has a past medical history of ADHD (attention deficit hyperactivity disorder) (2020), Anxiety, Ataxia (2023), Brain concussion (2014), Difficulty walking (2023), Head injury (2014), Migraine without aura, not intractable, without status migrainosus, Mixed hyperlipidemia, Recurrent major depressive disorder, in remission ([facility]), Seasonal allergies, Seizures (HCC) (09/06/2012), Social anxiety disorder, Syncope (09/06/2012), Vitamin D deficiency, and Weakness of limb. Past Surgical History: has a past surgical history that includes Femur Surgery (2005); Femur Surgery (2006); [place] tooth extraction (02/2018); and Tonsillectomy (2004). Medications: Current Outpatient Medications: acetaminophen (Tylenol) 500 MG tablet, Take 500 mg by mouth every 6 hours as needed., Disp: , Rfl: busPIRone (Buspar) 30 MG tablet, Take 30 mg by mouth 2 times daily., Disp: , Rfl: DULoxetine (Cymbalta) [address] capsule, Take 20 mg by mouth 2 times daily., Disp: , Rfl: gabapentin (Neurontin) 100 MG capsule, Take 100 mg by mouth Nightly. (Patient taking differently: Take 100 mg by mouth Nightly. 100 in the am and 300 in the pm), Disp: , Rfl: ibuprofen 200 MG tablet, Take 200 mg by mouth 3 times daily., Disp: , Rfl: melatonin 5 MG tablet, Take 1 tablet by mouth every evening., Disp: , Rfl: ondansetron ODT (Zofran-ODT) 4 MG disintegrating tablet, DISSOLVE 1 TABLET IN MOUTH EVERY 8 HOURS NEEDED FOR NAUSEA, Disp: , Rfl: pantoprazole (ProtoNix) 40 MG EC tablet, Take 1 tablet by mouth daily., Disp: , Rfl: sucralfate (Carafate) 1 GM/10ML suspension, 10 ml Orally ac and hs prn, Disp: , Rfl: topiramate (Topamax) 100 MG tablet, Take 1 tablet (100 mg) by mouth 2 times daily., Disp: 180 tablet, Rfl: 3 desogestrel-ethinyl estradiol (Apri) 0.15-30 MG-MCG tablet, Take 1 tablet by mouth., Disp: , Rfl: Nurtec 75 MG tablet dispersible, Take 1 tablet (75 mg) by mouth every other day., Disp: 15 tablet, Rfl: 11 Allergies: Azithromycin, Sumatriptan, and Aimovig [erenumab-aooe] Social History: Social History Socioeconomic History Marital status: Single Spouse name: Not on file Number of children: Not on file Years of education: Not on file Highest education level: Not on file Occupational History Not on file Tobacco Use Smoking status: Never Smokeless tobacco: Never Substance and Sexual Activity Alcohol use: Never Drug use: No Comment: thc gummies 3 mg Sexual activity: Not Currently Partners: Female, Male control/protection: Condom Male Comment: On control pill Other Topics Concern Not on file Social History Narrative Not on file Social Drivers of Health Financial Resource Strain: Not on file Food Insecurity: Not on file Transportation Needs: Not on file Physical Activity: Not on file Stress: Not on file Social Connections: Not on file Intimate Partner Violence: Not on file Housing Stability: Not on file Family History: Family History Problem Relation Name Age of Onset Other (63364) Paternal Grandmother Deedee Biro Hypertension Paternal Grandmother Deedee Biro Alzheimer's disease Paternal Grandmother Deedee Biro Dementia Paternal Grandmother Deedee Biro Depression Paternal Grandmother Deedee Biro Mental illness Maternal Grandmother Giselle Tortorich Depression Maternal Grandmother Giselle Tortorich Migraines Maternal Grandmother Giselle Tortorich Seizures Maternal Grandmother Giselle Tortorich Parkinsonism Maternal Grandfather Hypertension Father Greg Genaoo Other ([address]394) Father Greg Biro Ataxia Father Greg Biro Depression Father Greg Biro Diabetes Mother Queenie Biro Anxiety disorder Mother Queenie Biro Fibromyalgia Mother Queenie Biro Migraines Mother Queenie Biro Cancer Paternal Grandfather Cancer Mother's (more content not included)... [facility] 12-18-2024 36 We are unable to rajat ch your patient to schedule their therapy. We have made 3 attempts to schedule patient, Donnie Maldonado. 1st attempt: iDoc24 Message/Email sent the date after Referral was received. 2nd attempt: Text message sent 3 days from date Referral was received. 3rd attempt: Telephone attempt 6 days from date Referral was received. [facility] 3612-04-2024 36 Shiraz Hemphill scheduled this patient for Home sleep study test for 03/15/25 at [facility]. Patient has [place] Medicare auth maybe required please reach out to health plan to see if auth is required. Thank you [facility] sleep scheduling department [facility] 36on 11-26-2024 36 Home sleep apnea test ordered. Normal [facility] 36 Auth denied, Dr. Chino is to change to a HST Normal [facility] 36 Auth denied through [employer] for sleep study done in lab, can you please put an order in for a HST. Thank you [facility] 36on 11-20-2024 36 We have been unable to reach your patient to schedule their testing. Test Name: NCT EMG 1st Attempt: 11/16 Lvm 2nd Attempt: 11/19 Lvm 3rd Attempt: 11/20 StoreAget message sent [facility] 36 Your patient has bee n scheduled for their PSG on 12/11/24 at [place]. If testing requires an insurance authorization, the authorization must be in place 48 hours prior to the scheduled test or testing will be cancelled. Thank you, Central Scheduling [facility] Ankle min 3 Viewson 11-17-19 25 Ankle min 3 Views [facility] Imaging Services [address] [place] [id number] Ankle min 3 Views MR#: [id number] Acct: [id number] Name: DONNIE MALDONADO Rep #: [id number] : 2000 F 24 From: Mark Alvarado MD PCP: Dr. Fani Baez MD Status: REG ER Study: Ankle min 3 Views Date of Exam: 11/16/24 Exam# [id number] Ordering Dr: Cong Noriega DO PROCEDURE: ANKLE MIN 3 VIEWS 11/16/2024 REASON FOR EXAM: PAIN TECHNIQUE: 3 views of the right ankle COMPARISON: None available FINDINGS: No fracture or dislocation. The joint spaces appear within limits. Mild enthesopathic change at the Achilles side of the calcaneus. RAD/Ankle min 3 Views IMPRESSION: No fracture or dislocation. Reading Location: [facility] CC: Dr. Fani Baez MD; Cong Noriega DO Operating Room Scheduler: Signed Normal [facility] Emergency Department Summary on 11-16-2024 Emergency Department Summary [facility] Medical Records Department [address] [place] [address] Emergency Department Summary 11/16/24 MR#: [id number] Acct: [id number] Name: ODNNIE MALDONADO Rep #: [id number] : 2000 24 From: Cong Noriega DO PCP: Dr. Fani Baez MD Status:DEP ER Location: ED HPI History of Present Illness Chief Complaint: Seizure Informant: patient and family Narrative Narrative: Patient is a 24-year-old female with past medical history of nonepileptic seizure disorder. She states that this evening she was sitting at her desk when she had a nonepileptic seizure she states this caused her to break the chair and fall. She states that after the event she noticed she had right ankle and knee pain as well as back pain. She states she was able to ambulate but it was painful to do so. She denies any recent bouts of nausea vomiting diarrhea or concern for . She denies any dysuria or concern for STD or UTI. She states that after her amount of seizure with the pain mainly in the right ankle she is concern for underlying injury and comes in for evaluation [facility] Medical History (Updated 11/16/24 @ 06:[address] Cong Noriega DO) PONV (postoperative nausea and vomiting) Post concussion syndrome Dietary restriction Leg cramps Chest pain GERD (gastroesophageal reflux disease) Migraines Seizures Allergic reaction ( 10/22/22) Wears glasses Back pain Injury of head and neck Blackout History of hiatal hernia Gastric reflux Non-smoker Hip abductor tendonitis Depression Anxiety Home Medications ???Medication ???Instructions ???Recorded ???Last Taken ???Type ibuprofen 200 mg tablet 600 - 800 mg PO Q6H PRN PRN Pain 0 11/03/18 Unknown History ondansetron 4 mg disintegrating 4 mg PO Q8H PRN nausea and 2 Unknown Rx tablet vomiting #10 tabs fluoxetine 40 mg capsule (Prozac) 40 mg PO DAILY 01/31/23 Unknown H istory gabapentin 100 mg capsule 100 mg PO QHS 09/14/22 Unknown His tory hydroxyzine pamoate 25 mg capsule 30 mg PO PRN PRN Anxiety 09/14/22 Unknown History rimegepant 75 mg disintegrating 75 mg PO PRN PRN MIGRAINES 3 Unknown History tablet (Nurtec ODT) acetaminophen 500 mg tablet 1,000 mg (2 x 500 mg) PO Q6H PRN 1 10/12/22 Unknown Rx (Tylenol Extra Strength) pain #20 tabs buspirone 30 mg tablet 30 mg PO DAILY 10/20/23 Unknown Hi story meclizine 25 mg tablet 25 mg PO DAILY PRN dizziness 10/19 Unknown History pantoprazole 40 mg tablet,delayed 40 mg PO DAILY #30 tabs 12/22/23 Unknown Rx release (Protonix) diphenhydramine HCl 25 mg tablet 50 mg PO QHS 02/20/24 Unknown Hist ory (Poppq-V-Xccq) levonorgestrel 0.15 mg-ethinyl 1 tab PO DAILY 02/20/24 Unknown Hi story estradiol 30 mcg tablets,3 mos pack(91) (Jolessa) topiramate 100 mg tablet 100 mg PO BID 02/20/24 Unknown His tory Allergy/AdvReac Type Severity Reaction Status Date / Time gluten Allergy Diarrhea Verified 11/16/24 01:06 milk (dairy) AdvReac Mild INDEGESTION Verified 11/16/24 01:06 azithromycin AdvReac Diarrhea Verified 11/16/24 01:06 Family History Mother Diabetes Cancer skin Thyroid disorder Father Diabetes Hypertension Surgical History History of wisdom tooth extraction History of cholecystectomy S/P cholecystectomy History of surgery on lower extremity Hx of tonsillectomy Social History Smoking Status: Never smoker alcohol intake: never ROS ROS ED Constitutional Constitutional ED: Denies chills or fever(s) Eyes Eyes: Denies blurry vision or change in vision ENT ENT ED: Denies sore throat Cardiovascular Cardiovascular: Denies chest pain or palpitations Respiratory/Chest Respiratory/Chest: Denies cough or dyspnea Gastrointestinal Gastrointestinal: Denies abdominal pain, diarrhea, nausea or vomiting Genitourinary Genitourinary ED: Denies dysuria, hematuria or urinary frequency Musculoskeletal Musculoskeletal: Reports back pain and other Details: Positive right knee and ankle pain Integumentary Denies Abrasions or rash Neurologic Neurologic: Denies headache(s) or paresthesias Hematologic/Lymphatic Hematologic/Lymphatic: Denies easy bleeding or easy bruising EXAM Physical Exam Const Vital Signs: 11/16/24 01:06 11/16/24 02:06 11/16/24 02:48 Temperature 98.4 F Temperature Source Oral Pulse Rate 89 89 69 Respiratory Rate 19 H 26 H 18 Blood Pressure 140/78 H 141/98 H 145/65 H Blood Pressure Mean 98 112 91 Pulse Ox 97 98 98 Oxygen Delivery Method Room Air Room Air Room Air 11/16/24 03:00 11/16/24 03:56 Temperature 97 F L Temperature Source (more content not included)... Normal [facility] Knee 3 Viewson 11-16-2024 Knee 3 Views [facility] [address] [place] [id number] Knee 3 Views MR#: [id number] Acct: [id number] Name: DONNIE MALDONADO Rep #: [id number] : 2000 F 24 From: Mark Alvarado MD PCP: Dr. Fani Baez MD Status: REG ER Study: Knee 3 Views Date of Exam: 11/16/24 Exam# [id number] Ordering Dr: Cong Noriega DO PROCEDURE: KNEE 3 VIEWS 11/16/2024 REASON FOR EXAM: PAIN TECHNIQUE: 3 view(s) of the right knee COMPARISON: None available FINDINGS: No fracture, dislocation or joint effusion. The joint spaces appear within limits. RAD/Knee 3 Views IMPRESSION: No fracture, dislocation or joint effusion. Reading Location: [facility] CC: Dr. Fani Baez MD; Cong Noriega DO Operating Room Scheduler: Signed Normal [facility] Lumbar Spine 2 or 3 Viewson 11-16-2024 Lumbar Spine [address] [facility] Imaging Services [address] [place] [address] Lumbar Spine 2 or 3 Views MR#: [id number] Acct: [id number] Name: DONNIE MALDONADO Rep #: [id number] : 2000 F 24 From: Mark Alvarado MD PCP: Dr. Fani Baez MD Status: REG ER Study: Lumbar Spine 2 or 3 Views Date of Exam: Exam# [id number] Ordering Dr: Cong Noriega DO PROCEDURE: LUMBAR SPINE 2 OR 3 VIEWS 11/16/2024 REASON FOR EXAM: PAIN TECHNIQUE: 2 view(s) of the lumbar spine COMPARISON: None available FINDINGS: 5 nau-oyc-[id number] lumbar vertebral body types identified. No fracture or malalignment. The disc spaces appear within limits. RAD/Lumbar Spine 2 or 3 Views IMPRESSION: No fracture or malalignment. Reading Location: [id number] CC: Dr. Fani Baez MD; Cong Noriega DO Operating Room Scheduler: Signed [facility] Office Visiton 11-16-2024 Follow-up visit [id number] Donnie Maldonado 2000 F Date Provider Department Center 11/16/2024 [id number] KUMARI [facility] ELLI None Family History Problem Relation Age of Onset Other Paternal Grandmother Hypertension Paternal Grandmother Alzheimer's disease Paternal Grandmother Dementia Paternal Grandmother Depression Paternal Grandmother Mental illness Maternal Grandmother Depression Maternal Grandmother Migraines Maternal Grandmother Seizures Maternal Grandmother Parkinsonism Maternal Grandfather Hypertension Father Other Father Ataxia Father Depression Father Diabetes Mother Anxiety disorder Mother Fibromyalgia Mother Migraines Mother Cancer Paternal Grandfather Cancer Mother's Brother Anxiety disorder Father's Sister Depression Father's Sister Migraines Father's Sister Family Status - Relation Status Age at Paternal Grandmother Alive Maternal Grandmother Maternal Grandfather Father Alive Mother Alive Paternal Grandfather Mother's Brother Sister Notes: 2 adopted siblings Father's Sister Level of Service:46166 PA OFFICE/OUTPATIENT NEW HIGH MDM 60 MINUTES Reason for Visit and Comments: New Patient [542] Headache [52] Normal [facility] Progress Noteon 11-16-2024 Progress Note [facility] [place] [address] [address] [facility] [address] [facility] [address] Dept: [phone] Dept Loc: [phone] Freddie Ramirez MD CHIEF COMPLAINT: Chief Complaint Patient presents with New Patient Headache Seizures Last night went to ER HISTORY OF PRESENT ILLNESS: The patient is a 24 y.o. person who presents with headaches. She has been [facility] at [facility] (I did not have records at the time of the visit), [facility], and Dr. Wilhelm (I did not have records at the time of the visit). She reports that this is one of many issues that she has. Nurtec every other day has been helping. She has 8 days per month, which is down from her prior frequency of 20 or more per month. Biorbital and bioccipital. Throbbing. Is the BAUER longer than four hours? Yes (Migraine) Photophobia? Yes (Migraine) Phonophobia? Yes (Migraine) Nausea/Vomiting? Yes, has to take Zofran (Migraine) Exacerbated by Movement? Yes Blurry vision with headaches. Dizziness with headaches. (Hemicrania Continua) Autonomic Features (at least 1 of below)? (1) conjunctival injection? No (2) lacrimation? No (3) nasal congestion? No (4) rhinorrhea? No (5) ptosis? No (6) eyelid edema? No (New Daily Persistent BAUER) Clear Onset of BAUER Syndrome? No Persistent for >3 months? No Distinct starting point? No No prior BAUER history? Yes (Tension-Type BAUER) Mild-Moderate, Featureless? No >10 attacks per month? 30 min-7days? Bilateral? Pressing/tightening? Is the BAUER less than four hours? No Autonomic Features? No Cluster Headache (1 or more)? No 15 min to 180 min? No Ipsilateral conjunctival injection? No Ipsilateral Lacrimation? No Ipsilateral nasal congestion? No Ipsilateral Rhinorrhea? No Ipsilateral forehead and facial sweating? No Ipsilateral Miosis? No Ipsilateral Ptosis? No eyelid edema? No Paroxysmal Hemicrania (1 or more ipsilateral)? No (1) 2 min-30 min? No (2) conjunctival injection? No (3) lacrimation? No (4) nasal congestion? No (5) rhinorrhea? No (6) eyelid edema? No Short-lasting Unilateral Neuralgiform BAUER with Conjunctival Injection and Tearing? (1) 1 sec-600 s? No (2) conjunctival injection? No (3) lacrimation? No (4) nasal congestion? No (5) rhinorrhea? No (6) eyelid edema? No Hypnic BAUER? Only during sleep and causing awakening? No > 10 days per month? No > 3 months? No Age over 50? No Primary Cough BAUER? > 2 attacks? No Precipitated by coughing or other Valsalva maneuver? No 1 sec-2 hours? No Secondary cause ruled out? No Primary Exercise BAUER? > 2 attacks? No Precipitated by strenuous exercise? No Secondary cause ruled out? No Secondary causes of BAUER? Systemic Symptoms (mets, GCA, infection)? Fever? Sweats/Chills? Weight Loss? Secondary Diseases? HIV? Cancer? Chronic Infection? Chronic Immunosuppression? Neurological Symtoms and Signs (mass/structural lesion, stroke, hydrocephalus) Confusion? Focal neurological signs/symptoms? Diplopia? Transient visual obscurations? Pulsatile tinnitus? Onset: (RCVS, stroke, SAH, CVST, dissection, pituitary apoplexy, intracranial hypertension) Thunderclap? Older Age (mass, GCA) New onset after age 50? Progressive after age 50? Positional (CSF leak, mass, CVST, Sinusitis) Orthostatic? Recumbent? Worsens with change in position? Prior history (mass, infection)? / (CVST, eclampsia, RCVS, pituitary lesion, stroke)? Precipitated by valsalva (mass, Chiari)?Yes Cough?No Sneeze?No Bending?Yes Straining?Yes She reports that she is having 8 days of migraine per month with topiramate and duloxetine and gabapentin and Nurtec every other day. She takes Ibuprofen+Benadryl. She has tried sumatriptan and naratriptan and they failed. Aimovig caused rash. She reports that she has dizziness and balance issues. She will feel hot with these events. Do you have to be up to have the dizziness or can you have the dizziness when seated or lying down? Usually when active and bending over, but can happen seated. When you have an attack of dizziness how long does it last? Seconds: vestibular paroxysmia, cardiogenic dizziness (Less than 2 minutes)? No Minutes: vertebrobasilar transient ischemic attack (TIA), vestibular migraine, panic disorder, delayed orthostatic hypotension, hypoglycemia (2 min-60 min)? No Hours: vestibular migraine, M?ni?re disease, toxic/metabolic (Over an hour)? Yes Days: vestibular migraine? Do you feel like things are moving in when you know they are actually still?Yes Do you have otalgia? No Do you have tinnitus? No If so, which ear? Left/Right No Do you get dizzy turning your head? Yes Do you have trouble with dizziness getting up from a chair or from a seat? No Have you had falls? Yes Is there any vision change with the dizziness? Blurriness Do you have headache associated wi (more content not included)... Normal [facility] Thoracic Spine 3 Viewson Thoracic Sp[address] [facility] Imaging Services [address] [place] [id number] Thoracic Spine 3 Views MR#: [id number] Acct: [id number] Name: DONNIE MALDONADO Rep #: [id number] : 2000 F 24 From: Mark Alvarado MD PCP: Dr. Fani Baez MD Status: REG ER Study: Thoracic Spine 3 Views Date of Exam: 11/16/24 Exam# [id number] Ordering Dr: Cong Noriega DO PROCEDURE: THORACIC SPINE 3 VIEWS 11/16/2024 REASON FOR EXAM: PAIN TECHNIQUE: Two views thoracic spine COMPARISON: None available FINDINGS: Telemetry wire and clip on the AP view overlaps the spine. No fracture or malalignment. The disc spaces appear within limits. RAD/Thoracic Spine 3 Views IMPRESSION: No fracture or malalignment. Reading Location: [facility] CC: Dr. Fani Baez MD; Cong Noriega DO Operating Room Scheduler: Signed Normal [facility] CNOVon 10-19-2024 CNOV Office Visit (NE50MN ) DONNIE MALDONADO ([id number]) 2000 F Date Time Provider Department 10/19/24 4:00 PM EDWIN LOCK NE50MN During your visit today, we recorded the following information about you: Pulse Respiration Blood pressure Weight 95/minute 18/minute 141/78 131.1 kg Height 1.702 m Edwin Lock MD 10/19/2024 6:19 PM Signed [facility] Neurological [facility] EPILEPSY CLINIC NOTE - RETURN VISIT CHIEF COMPLAINT: seizures LAST SEEN: 04/09/2024 for initial visit INTERVAL HISTORY At 04/09/2024 initial visit they reported two types of episodes, falling and staring, occurring weekly. I ordered inpatient video-EEG. She was admitted 04/28 - 05/03/2024 and mild events were recorded, with no EEG change. Orthostatic vitals were checked several times in the EMU, with no evidence for orthostatic hypotension. She felt events were triggered by stress. She started working with Dr. Hernández 06/01/2024, and last visit was 10/12/2024 with last episode (body felt overheated) documented as 09/26/2024. She was still taking TPM for migraine and GBP for anxiety, insomnia. She confirms episodes in EMU were mild without loss of awareness. Last episode was 09/26/2024: she was at home in her room, woke up at about 6A feeling hot, dizzy, room spinning, and headache, and at about 630A she stood up and after about 5 minutes of standing, fell to floor, hit head. She thinks she was out for about 30 seconds. It was unwitnessed. She feels it was triggered by stress. She was going through break-up and Gregory's day was approaching. She reports just two episodes 08/2024. Overall, she feels episodes are improved. Fluoxetine was changed to Cymbalta mid-Aug 2024, prescribed by psychiatrist. She had been on fluoxetine for years and felt more depressed recently, but mood is better on Cymbalta. Working with Dr. Hernández has helped her manage stress. She reports frequent (mild) dizziness. She drinks 3-4 small bottles of Powerade and 2 glasses of water each day. She has appt with Dr. Ramirez next month for headache. She sees PCP next month. She has cut down on caffeine intake (but still drinks 1-2 Cokes per day). She does not exercise much. SEIZURE HISTORY (from 04/09/2024 initial visit) The history of episodes began 08/2012 (at 12 years of age), per her mother. Per review of EMR, she has a h/o headaches since at least 2004. They worsened in [address] Fabiano Mckinney 08/05/2009. Headaches improved in 2009 but recurred in 2011 when her father developed health problems. She also started to have syncopal episodes in 2011. Dr. Wilhelm noted a recurrent episode of syncope 08/2012. 24-hour Holter was normal. There were five syncopal episodes from 08/2012 to 11/2013, all while standing, with narrowing of vision and ringing in her ears before LOC, suggestive of vasovagal syncope. Per patient, initial episodes were characterized by everything going black and hearing goes, like someone's covering her ears. Symptoms last about 10 seconds before she loses consciousness. She often falls and injures herself. In 2012, they were happening every [address] Ramirez and someone at [facility]. She had 24-hour EEG in the hospital; no episodes were recorded. 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 They do not remember hearing an explanation of MAXINE. Episodes went away for several years, for no clear reason. Episodes recurred in 2023; patient thinks 10/2023. They are now happening 2x/week. Often, feels out of it dizzy, lightheaded, lasting hours before the episode. Even walking, feels dizzy, lightheaded and shortness of breath. She has been riding a mobility scooter in the last 2 months. They have seen PCP for episodes but have not mentioned SOB while walking. But even just sitting on sofa, she can start sweating hours before an episode. TYPICAL EPISODES: 1) Falling episodes Description: Patient experiences everything going black and losing hearing for about 10 seconds, and then loses consciousness, often finding herself on the floor. Witnesses: they often just hear her fall; when they have been in the same room, they see her staring, then she falls limp, motionless for about one minute, then gets up, then listless for the rest of the day. Duration: 1-2 minutes Frequency: 2/week 2) Staring episodes No aura. Parent report staring, with delayed responses but she does typically respond to them. Duration: 1-2 minutes Frequency: at least weekly Triggers: flashing lights, video games and early development: FT , delivered via due to breech presentation (mother was on bedrest since early , due to bleeding); normal early development RISK FACTORS FOR SEIZURES 1. Head Trauma (Yes, concussions but none before episodes starte (more content not included)... Normal [facility] Bacteria Ur Culton Bacteria identified Cx Nom (U) ORGANISM ID: 1 >=100,000 CFU/ml Mixed microbiota No further workup. Mixed microbiota can be due to???urine???contamination with skin bacteria at time of collection or presence of a long-term urinary catheter. If a new culture is needed, please consider re-education of the patient on proper midstream co llection technique or straight catheterization for???urine???collection. Normal [facility] Comment on above: Performed By: #### 6 30-4 ####[facility] LABORATORYCLIA [id number] [place] [address] [place] CNOVon 10-08-2024 CNOV Office Visit (UCMMAS ) DONNIE MALDONADO ([id number]) 2000 F Date Time Provider Department 10/08/24 1:20 PM HYACINTH GONSALES UCMMAS During your visit today, we recorded the following information about you: Temperature Pulse Respiration Blood pressure 97.6 degrees 101/minute 18/minute 149/95 Weight 132.9 kg Hyacinth Gonsales, STEVE.MANAGER INTERNAL 10/08/2024 2:07 PM Signed Donnie Maldonado is a 24 year old female who presents with Urinary Problem (Frequency started 3-4 days ago //Denies chance of STI or /) and Fever (Mostly at night /Started 2-3 days ago /) Started with urgency and frequency. Noticed at night the past few nights has elevated tempature. Denies any other associated sx. Fever PAST MEDICAL HISTORY Diagnosis Date Achilles bursitis or tendinitis 06/16/2009 Concussion 04/21/2015 Depression 04/2009, 04/2015 The depression 04/2015 was with suicidal ideation and patient was hospitalized. Equinus deformity of foot, acquired 06/16/2009 Headache(784.0) 12/09/2009 Menarche Age [age] Years Old Nonspecific (abnormal) findings on radiological and other examination of skull and head resolved assymetry of head Syncope 09/11/2012 Vasovagal episode 07/15/2015 ACTIVE PROBLEM LIST Equinus Deformity of Foot, Acquired Achilles Bursitis Or Tendinitis Headache Syncope Social Phobia Generalized Anxiety Disorder Sob (Shortness of Breath) On Exertion Obesity Somatoform Disorder Depression Concussion Vasovagal Episode Seizure-Like Activity (Hcc) Obesity, Class III, BMI >= 40 Current Outpatient Medications Medication Sig Dispense Refill Desogestrel-Ethinyl Estradiol (APRI) 0.15-0.03 mg per tablet Take 1 tablet by mouth. CYMBALTA 20 mg capsule (Patient taking differently: Take 20 mg by mouth two times a day.) vitamin B complex (SUPER B COMPLEX ORAL) gabapentin (NEURONTIN) 300 mg capsule Take 300 mg by mouth daily at bedtime. gabapentin (NEURONTIN) 100 mg capsule levonorgestrel-ethinyl estradiol (JOLESSA) 0.15 mg-30 mcg (91) per tab, 3 month pack Take 1 tablet by mouth once daily. topiramate (TOPAMAX) 100 mg tablet Take 100 mg by mouth two times a day. pantoprazole DR (PROTONIX) 40 mg tablet Take 1 tablet by mouth once daily. 180 tablet 3 hydrOXYzine pamoate (VISTARIL) 25 mg capsule Take 1 capsule by mouth twice daily as needed. busPIRone HCl 30 mg tablet Take 1 tablet by mouth twice daily. NURTEC ODT 75 mg disintegrating tablet Take 1 tablet by mouth every 48 hours as needed. sucralfate (CARAFATE) 100 mg/mL suspension TAKE 10 ML (CC) BY MOUTH TWICE DAILY ON AN EMPTY STOMACH 1 HOUR BEFORE MEALS cholecalciferol (VITAMIN D-3) 5,000 unit tab Take 1 tablet by mouth once daily. ondansetron orally disintegrating (ZOFRAN ODT) 4 mg disintegrating tablet dissolve 1 tablet ON TONGUE every 4 hours if needed for nausea and vomiting 60 tablet 2 FLUoxetine (PROZAC) 10 mg capsule Take 10 mg by mouth once daily. levonorgestrel-ethinyl estradiol 0.15 mg-30 mcg (91) per tab, 3 month pack Take 1 tablet by mouth as directed. (Patient not taking: Reported on 10/08/2024) FLUoxetine (PROZAC) 40 mg capsule Take 1 capsule by mouth once daily. No current facility-administered medications for this visit. Social History Tobacco Use Smoking status: Never Smokeless tobacco: Never Vaping Use Vaping status: Never Used Substance Use Topics Alcohol use: No Drug use: No Alcohol Use: No Tobacco Use: Never FAMILY HISTORY Problem Relation Age of Onset Diabetes Mother Cancer Mother skin- Unknonw type Hypertension Father Psychiatry Father Diabetes Maternal Grandmother Asthma Maternal Grandmother Hypertension Maternal Grandmother Hypertension Paternal Grandmother Lipids Paternal Grandmother Diabetes Paternal Grandfather Hypertension Paternal Grandfather Cancer Paternal Grandfather Lympoma- leukemia other (leukemia) Paternal Grandfather Anesthesia Problems No Family History Review of Systems Constitutional: Positive for chills and fever. HENT: Negative. Eyes: Negative. Respiratory: Negative. Cardiovascular: Negative. Gastrointestinal: Negative for abdominal pain. Genitourinary: Positive for dysuria, frequency and urgency. Negative for hematuria. Musculoskeletal: Positive for back pain. All other systems reviewed and are negative. BP 149/95 Pulse 101 Temp (Src) 97.6 (Temporal) Resp 18 Wt 293 lb (132.9kg) SpO2 97% Physical Exam Vitals and nursing note reviewed. Constitutional: General: She is not in acute distress. Appearance: Normal appearance. She is not ill-appearing or diaphoretic. HENT: Nose: No congestion or rhinorrhea. Mouth/Throat: Pharynx: No oropharyngeal exudate or posterior oropharyngeal erythema. Eyes: Extraocular Movements: Extraocular movements intact. Conjunctiva/sclera: Conjunctivae normal. Pupils: Pupils are e (more content not included)... Normal [facility] URINALYSIS, DIPSTICK ONLYOrd ered By: Madison Lovelace on 10-08-2024 Bilirubin Ql (U) Negative Negative [facility] Clarity (Unsp spec) Clear Clear [facility] Color (U) Yellow Yellow [facility] Glucose Test strip (U) [Mass/Vol] Negative Negative [facility] Hemoglobin Ql (U) 2+ Abnormal Negative [facility] Interpretation and review of laboratory results Abnormal [facility] Ketones Ql (U) Negative Negative [facility] Leukocyte esterase Test strip Ql (U) Trace Abnormal Negative [facility] Nitrite Ql (U) Negative Negative [facility] pH (U) 5 [pH] 5.0 - 8.0 [facility] Protein (U) [Mass/Vol] Trace Abnormal Negative [facility] Specific gravity (U) [Rel density] 1.025 1.005 - 1.030 [facility] Urobilinogen Ql (U) Negative Negative [facility] URINALYSIS, DIPSTICK ONLYon 10-08-2024 Bilirubin Ql (U) Negative Normal Negative [facility] Comment on above: Order Comment: Speci men Type: URINE SPECIMENOrdering Facility: [facility] Address: [address] [place] [address] Performed By: #### U A ####[facility] LABCLIA [id number] [address] Clarity (Unsp spec) Clear Normal Clear [facility] Comment on above: Order Comment: Speci men Type: URINE SPECIMENOrdering Facility: [facility] Address: [address] [place] [address] Performed By: #### U A ####[facility] LABCLIA [id number] [address] OF [facility] Color (U) Yellow Normal Yellow [facility] Comment on above: Order Comment: Speci men Type: URINE SPECIMENOrdering Facility: [facility] Address: [address] [place] [address] Performed By: #### U A ####TOBYAsa MASSILLON LABCLIA [id number] [place] [address] [facility] Glucose Test strip (U) [Mass/Vol] Negative Normal Negative [facility] Comment on above: Order Comment: Speci men Type: URINE SPECIMENOrdering Facility: [facility] Address: [address] [place] [address] Performed By: #### U A ####TOBYAsa MASSDUYN LABCLIA [id number] [address] Hemoglobin Ql (U) 2+ Abnormal Negative [facility] Comment on above: Order Comment: Speci men Type: URINE SPECIMENOrdering Facility: [facility] Address: [address] [place] [address] Performed By: #### U A ####TOBYAsa MASSDUYN LABCLIA [id number] [address] Ketones Ql (U) Negative Normal Negative [facility] Comment on above: Order Comment: Speci men Type: URINE SPECIMENOrdering Facility: [facility] Address: [address] [place] [address] Performed By: #### U A ####TOBYAsa GIANCARLODUYN LABCLIA [id number] [place] [id number] [facility] Leukocyte esterase Test strip Ql (U) Trace Abnormal Negative [facility] Comment on above: Order Comment: Speci men Type: URINE SPECIMENOrdering Facility: [facility] Address: [address] [place] [address] Performed By: #### U A ####TOBYAsa MASSILLON LABCLIA [id number] [place] [address] [facility] Nitrite Ql (U) Negative Normal Negative [facility] Comment on above: Order Comment: Speci men Type: URINE SPECIMENOrdering Facility: [facility] Address: [address] [place] [address] Performed By: #### U A ####[facility]ENTERAsa CASUEYPhan LABCLIA [id number] [place] [address] [facility] pH (U) 5.0 [pH] Normal 5.0-8.0 [facility] Comment on above: Order Comment: Speci men Type: URINE SPECIMENOrdering Facility: [facility] Address: [address] [place] [address] Performed By: #### U A ####TOBYAsa GIANCARLODALIA LABCLIA [id number] [place] [address] [facility] Protein (U) [Mass/Vol] Trace Abnormal Negative [facility] Comment on above: Order Comment: Speci men Type: URINE SPECIMENOrdering Facility: [facility] Address: [address] [place] [address] Performed By: #### U A ####TOBYAsa MARIUMPhan LABIA [id number] [place] [id number] [facility] Specific gravity (U) [Rel density] 1.025 Normal 1.005-1.03 0 [facility] Comment on above: Order Comment: Speci men Type: URINE SPECIMENOrdering Facility: [facility] Address: [address] [place] [address] Performed By: #### U A ####TOBYAsa GIANCARLODALIA LABCLIA [id number] [place] [address] [facility] Urobilinogen Ql (U) Negative Normal Negative [facility] Comment on above: Order Comment: Speci men Type: URINE SPECIMENOrdering Facility: [facility] Address: [address] [place] [address] Performed By: #### U A ####[facility] CAUSEYPhan LABCLIA [id number] [place] [address] [facility] [address] BRAIN WO IVCONon 06-13-[address] BRAIN WO IVCON * * *Final Report* * * DATE OF EXAM: Jun 13 2024 5:20PM [facility] 0504 - CT BRAIN WO IVCON / PROCEDURE REASON: Head trauma, minor, normal mental status (Age 19-64y) * * * * Physician Interpretation * * * * EXAM: CT BRAIN WO IVCON Exam Date/Time: 06/13/2024 5:20 PM CLINICAL HISTORY: Head trauma, minor, normal mental status (Age 19-64y) PROCEDURE: Axial CT images of the head from the skull base to vertex are obtained without IV contrast. CT Radiation dose: Integrated CT Dose-Length Product (DLP) for this visit = 715.81 mGy*cm CT Dose Reduction Employed: Automated exposure control(AEC) and iterative recon FINDINGS: No acute intracranial hemorrhage, shift of midline structures or mass effect. Ventricles and sulci are symmetric with normal size. No extra-axial collections. No depressed calvarial fractures. Minimal opacification of the left maxillary and some right ethmoid sinuses. The remaining visualized paranasal sinuses and mastoid air cells are clear. IMPRESSION: No acute intracranial abnormality. Operating Room Scheduler: [facility]Janel Transcribe Date/Time: Jun 13 2024 5:28P Dictated by : ASHLEY BANKS MD This examination was interpreted and the report reviewed and electronically signed by: ASHLEY BANKS MD on Jun 13 2024 5:28PM EST [id number] Normal [facility] ECG COMPLETEon 06-13-2024 ECG COMPLETE Ventricular Rate : 8 3 BPM Atrial Rate : 83 BPM P-R Interval : 154 ms QRS Duration : 80 ms Q-T Interval : 408 ms QTC Calculation(Bazett) : 479 ms Calculated P Sussex : 42 degrees Calculated R Sussex : 81 degrees Calculated T Sussex : 16 degrees Normal sinus rhythm Nonspecific T wave abnormality Prolonged QT Abnormal ECG When compared with ECG of 19-Dec-2023 14:22, No significant change was found Confirmed by ANDREINA BERNARDO, [facility] ([id number]) on 06/13/2024 10:18:48 PM NAME : DONNIE MALDONADO PID : [id number] : 2000 Gender : Female Race : ORD : [id number] Procedure Date : Jun 13 2024 16:43:28 Edit Date : Jun 13 2024 22:18:53 Diagnosis: Normal sinus rhythm Nonspecific T wave abnormality Prolonged QT Abnormal ECG When compared with ECG of 19-Dec-2023 14:22, No significant change was found Confirmed by MARIOLA HDZ MD ([id number]) on 06/13/2024 10:18:48 PM Test Reason : STAT Location : 0 : ED EDFTB Overread By : MARIOLA HDZ MD Edited By : MARIOLA HDZ MD Referred By : , Acquired by : [id number], [facility] ED NOTEon 06-13-2024 ED NOTE HNO ID: [id number] Author: VALERIE PATEL RN Service: ? Author Type: Registered Nurse Type: ED Notes Filed: 06/14/2024 10:17 Note Text: Emergency Services: ED Call Back Questionnaire SERVICE DATE: 06/13/2024 Are you feeling better? Yes Any questions about discharge instructions and follow-up care? No Were you able to make a follow up appointment? No, referred to appointment hotline Do you have any further questions? No Is there anything that we could have done differently to improve your ED visit? No SIGNATURE: Valerie Patel RN PATIENT NAME: Donnie Maldonado DATE: June 14, 2024 TIME: 10:17 AM [facility] ED NOTE HNO ID: [id number] Author: MITCHELL EVANS RN Service: Emergency Medicine Author Type: Registered Nurse Type: ED Notes Filed: 06/13/2024 23:22 Note Text: Reviewed dc order with pt, no new scripts., pt verbalized understanding denies any further needs. Ambulatory with steady gait for dc home with family. [facility] ED NOTE HNO ID: [id number] Author: MITCHELL EVANS RN Service: Emergency Medicine Author Type: Registered Nurse Type: ED Notes Filed: 06/13/2024 22:20 Note Text: Pt reports she threw up, <30 ml noted in emesis bag. Dr. Ellison notified [facility] ED NOTE HNO ID: [id number] Author: MITCHELL EVANS RN Service: Emergency Medicine Author Type: Registered Nurse Type: ED Notes Filed: 06/13/2024 22:20 Note Text: [facility] ED NOTE HNO ID: [id number] Author: MITCHELL EVANS RN Service: Emergency Medicine Author Type: Registered Nurse Type: ED Notes Filed: 06/13/2024 21:47 Note Text: Patient informed: the name of medication, why we are giving it, possible side effects, what they may expect to feel, and was offered a chance to ask questions, prior to the administration of toradol, valium, phenergan [facility] ED NOTE HNO ID: [id number] Author: MITCHELL EVANS RN Service: Emergency Medicine Author Type: Registered Nurse Type: ED Notes Filed: 06/13/2024 20:34 Note Text: Pt to ED with c/o around 1230 today I had another non epileptic seizure at home again, and I hurt my right shoulder and ankle when I fell down during it pt ambulatory with steady gait, moving all extremities without difficulty. But c/o right shoulder, right ankle pain and headache from this episode, no OTC meds taken sloop captain. Pt and family report they went to [facility] ED and had some testing done, but left without being seen because they never got us back to a room. Normal [facility] ED NOTE HNO ID: [id number] Author: NIKI CASTELLANOS RN Service: Nursing Author Type: Registered Nurse Type: ED Notes Filed: 06/13/2024 20:19 Note Text: [facility] called and states that this patient is currently in their lobby. [facility] ED PROV NOTEon 06-13-2024 ED PROV NOTE HNO ID: [id number] Author: LFOR ELLISON MD Service: Emergency Medicine Author Type: Physician Type: ED Provider Notes Filed: 06/17/2024 07:21 Note Text: ED Provider Note Patient Name: Donnie Maldonado : 2000 SERVICE DATE: 06/13/24 History Patient presents with: Headache Shoulder Injury Ankle Injury non epileptic seizure The patient is a 24-year-old female presents today after a fall at home. Patient states she has nonepileptic seizures. She states when she gets very stressed or emotional she will blackout. She notices this more with standing up as well. She had an EEG performed with her last episodes that showed no epileptiform discharge. They are still working on trying to figure out what is causing her symptoms. Patient states that she went to get up out of bed this evening. She walked down the redd and states that her vision went black and she dropped to the ground. Mom states that typically during these episodes she will talk to her through it but patient was not responding to her right away. She did hit her head against the molding of the doorway. Mom states that it was about 30 seconds for the patient would respond to them. They went to [facility] due to the injuries. Patient states that she has a headache as well as shoulder pain and ankle pain from the fall. She did have x-rays and CT of her head obtained but had not seen a provider. Due to the wait and not seeing a provider they left the ER and came here for further evaluation. Patient states she has a history of migraines and this is all set off her migraine. She takes Nurtec for it as a preventative measure. Patient is able to tell me that she could remember all events with the blackout episode. She states she can see her mom and heard everything going on but she did not respond right away because she felt dazed. PAST MEDICAL HISTORY Diagnosis Date Achilles bursitis or tendinitis 06/16/2009 Concussion 04/21/2015 Depression 04/2009, 04/2015 The depression 04/2015 was [...] hip surgery plates removed TONSILLECTOMY AND ADENOIDECTOMY FAMILY HISTORY Problem Relation Age of Onset Diabetes Mother Cancer Mother skin- Unknonw type Hypertension Father Psychiatry Father Diabetes Maternal Grandmother Asthma Maternal Grandmother Hypertension Maternal Grandmother Hypertension Paternal Grandmother Lipids Paternal Grandmother Diabetes Paternal Grandfather Hypertension Paternal Grandfather Cancer Paternal Grandfather Lympoma- leukemia other (leukemia) Paternal Grandfather Anesthesia Problems No Family History Social History Tobacco Use Smoking status: Never Smokeless tobacco: Never Vaping Use Vaping status: Never Used Substance and Sexual Activity Alcohol use: No Drug use: No Sexual activity: Never ALLERGIES Allergen Reactions Sumatriptan Vomiting Zpak [Azithromycin] Diarrhea Diarrhea AND stomach pain Review of Systems Constitutional: Negative for activity change, appetite change, chills, fatigue and fever. HENT: Negative for congestion, ear pain, rhinorrhea and sore throat. Respiratory: Negative for cough and shortness of breath. Cardiovascular: Negative for chest pain and palpitations. Gastrointestinal: Negative for abdominal pain, diarrhea, nausea and vomiting. Genitourinary: Negative for dysuria, frequency and urgency. Musculoskeletal: Negative for arthralgias and myalgias. Skin: Negative for rash and wound. Neurological: Positive for syncope and headaches. Negative for dizziness, speech difficulty, weakness, light-headedness and numbness. Psychiatric/Behavioral: Negative for self-injury and suicidal ideas. All other systems reviewed and are negative. Physical Exam Vitals [06/13/242026] BP Pulse Temp Temp src Resp SpO2 Weight Height 133/89 70 36.3 ?C (97.4 ?F) Temporal 16 100 % 108.9 kg (240 lb) 1.702 m (5' 7) Physical Exam Vitals and nursing note reviewed. Constitutional: General: She is not in acute distress. Appearance: She is well-developed. HENT: Head: Normocephalic and atraumatic. Nose: Nose normal. Mouth/Throat: Mouth: Mucous membranes are moist. Pharynx: Oropharynx is clear. Eyes: Extraocular Movements: Extraocular movements intact. Pupils: Pupils are equal, round, and reactive to light. Cardiovascular: Rate and Rhythm: Normal rate and regular rhythm. Pulses: Normal pulses. Heart sounds: Normal heart sounds. No murmur hea (more content not included)... Normal [facility] ED Triage Noteon 06-13-2024 ED Triage Note HNO ID: [id number] Author: NURYS CHOU PA-C Service: ? Author Type: Physician Linderman Machine Operator Type: ED Triage Notes Filed: 06/13/2024 17:10 Note Text: ED TRIAGE PROVIDER NOTE Patient Name: Donnie Maldonado Service Date: 06/13/24 BRIEF HPI: This is a 24 year old female who presents to the ED with: Headache, right shoulder pain, right ankle pain. Patient has a history of nonepileptic seizures when she had 1 today, fell forward striking her head on the door frame as well as right shoulder and right ankle. She has a history of nonepileptic seizures in which she follows in the outpatient setting. She denies any lightheadedness, dizziness, syncopal episode. BRIEF EXAM: NAD Awake and Alert Non labored breathing No focal neurological deficits Patient reports tenderness palpation of the frontal scalp at the hairline without any swelling, deformity. Patient reports tender to palpation of the lateral anterior right shoulder extending posteriorly. Tenderness palpation of the lateral right ankle. INITIAL WORKUP AND DECISION MAKING: Orders Placed This Encounter CT BRAIN WO IVCON XR CHEST 2V FRONTAL/LAT XR SHOULDER GENERAL 3V OR MORE AP/TRUE AP/OTHER RIGHT XR ANKLE GENERAL 3V AP/LAT/OBL RIGHT ECG COMPLETE SIGNATURE: Nurys Chou PA-C [facility] XR ANKLE 3V AP/LAT/OBL RTon 06-13-2024 XR ANKLE 3V AP/LAT/OBL RT * * *Final Report* * * DATE OF EXAM: Jun 13 2024 4:56PM [id number] [id number] - XR ANKLE 3V AP/LAT/OBL RT / PROCEDURE REASON: Fracture, ankle * * * * Physician Interpretation * * * * EXAM: XR ANKLE 3V AP/LAT/OBL RT Exam Date/Time: 06/13/2024 4:56 PM CLINICAL HISTORY: Fracture, ankle, Ankle pain, no prior imaging RESULT: AP, oblique and lateral views of the right ankle show no evidence for acute fracture or dislocation. The ankle mortise is intact. Joint spaces are maintained. IMPRESSION: No acute osseous injury. Operating Room Scheduler: [facility] Transcribe Date/Time: Jun 13 2024 5:08P Dictated by : ASHLEY BANKS MD This examination was interpreted and the report reviewed and electronically signed by: ASHLEY BANKS MD on Jun 13 2024 5:08PM EST [id number] [facility] XR CHEST 2V FRONTAL/LATon XR CHEST 2V FRONTAL/LAT * * *Final Report* * * DATE OF EXAM: Jun 13 2024 4:56PM [id number] [id number] - XR CHEST 2V FRONTAL/LAT / PROCEDURE REASON: Chest Pain * * * * Physician Interpretation * * * * EXAMINATION: CHEST RADIOGRAPH (2 VIEW FRONTAL and LATERAL) CLINICAL HISTORY: Chest pain. History of seizure with fall. MQ: [id number]_6 EXAM DATE/TIME: 06/13/2024 4:56 PM COMPARISON: Chest radiograph 03/09/2021. RESULT: Lines, tubes, and devices: None. Lungs and pleura: No focal consolidation or edema. No pneumothorax or effusions. Cardiomediastinal silhouette: Normal cardiomediastinal silhouette. Bones and soft tissues: No acute abnormality. IMPRESSION: No acute radiographic abnormality. Operating Room Scheduler: [facility] Transcribe Date/Time: Jun 13 2024 4:57P Dictated by : ROGELIO ROSARIO MD This examination was interpreted and the report reviewed and electronically signed by: ROGELIO ROSARIO MD on Jun 13 2024 4:58PM EST [id number] [facility] XR SHLDR >/=3V AP/GILL AP/OTH R RTon 06-13-2024 XR SHLDR >/=3V AP/GILL AP/OTHR RT * * *Final Report* * * DATE OF EXAM: Jun 13 2024 4:55PM [id number] [id number] - XR SHLDR >/=3V AP/GILL AP/OTHR RT / PROCEDURE REASON: Trauma * * * * Physician Interpretation * * * * EXAM: XR SHLDR >/=3V AP/GILL AP/OTHR RT CLINICAL HISTORY: Trauma RESULT: AP internal and external rotation and scapular Y views of right shoulder. No evidence for acute fracture or dislocation. The soft tissues are radiographically unremarkable. IMPRESSION: No acute osseous abnormality. Operating Room Scheduler: [facility] Transcribe Date/Time: Jun 13 2024 5:07P Dictated by : ASHLEY BANKS MD This examination was interpreted and the report reviewed and electronically signed by: ASHLEY BANKS MD on Jun 13 2024 5:08PM EST [id number] [facility] CNCOon 05-04-2024 CNCO Letter Text Normal [facility] CNDSon 05-03-2024 CNDS HNO ID: [id number] Author: COREY ONEIL MD Service: Neurology Adult Epilepsy Author Type: Physician Linderman Machine Operator Type: Discharge Summary Filed: 05/04/2024 08:25 Note Text: Attestation signed by Corey Oneil MD at 05/04/2024 8:25 AM EPILEPSY STAFF NOTE: Event precautions and no driving discussed with the patient. Corey Oneil MD DISCHARGE SUMMARY PATIENT NAME: Donnie Maldonado ADMISSION DATE: 04/28/2024 DISCHARGE DATE: 05/03/2024 ADMITTING SERVICE: Epilepsy ATTENDING PHYSICIAN: Cristel Pablo MD Code Status: Not on file Referring/Secondary Physician: Dr. Lock Highest Readmission Risk Score: 12 The 30 day readmissions risk score is derived from an internally validated risk model which evaluates patient level characteristics, utilization history, medication orders and lab results up until the day of discharge. Patients with a score of 40 or above are considered highest risk for readmission. Specific patient level drivers will be listed at the bottom of the summary. The 30 day readmissions risk score is derived from an internally validated risk model which evaluates patient level characteristics, utilization history, medication orders and lab results up until the day of discharge. Patients with a score of 40 or above are considered highest risk for readmission. Specific patient level drivers will be listed at the bottom of the summary. REASON FOR HOSPITALIZATION: Diagnosis of Nonepileptic Events IMPORTANT TESTS AND PROCEDURES: Continuous Video EEG HOSPITAL COURSE: Donnie Maldonado is a 24 year old female who presented to the [facility] EMU on 04/28/2024 for diagnosis. Patient was on Topamax for migraines and Gabapentin for pain and insomnia prior to admission and both medications were discontinued during the admission. Patient noted to have many typical events without EEG change. 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 Please see separate video-EEG report for details. She received education about the diagnosis of PNES and will follow with our PNES team for CBT. Prior to discharge, home medications were continued at home dosing without changes: Gabapentin for pain and Topamax for migraines . PNES and fall precautions were reiterated and patient was discharged in stable condition. Principal Problem: Seizure-like activity (HCC) (POA: Yes) Active Problems: Obesity, Class III, BMI >= 40 (POA: Unknown) Resolved Problems: * No resolved hospital problems. * Obesity Class III (BMI +/>40 or >35 with comorbidity) Transitions of Care Critical Issues: SPECIALIST FOLLOW-UP: psychology LABS AND PROCEDURES PENDING AT DISCHARGE: Finalized Video EEG Report CONSULTING TEAMS DURING HOSPITALIZATION: Social Work: ALONZO Cruz Treatment Team: Attending Provider: Cristel Pablo MD PATIENT CONDITION AT DISCHARGE: Stable DISCHARGE DISPOSITION: Home with Self Care Discharge Physical Exam: VITAL SIGNS: BP (!) 111/49 Pulse 77 Temp 36.9 ?C (98.4 ?F) (Oral) Resp 18 Ht 168.9 cm (5' 6.5) Wt 124.9 kg (275 lb 5.7 oz) LMP (LMP Unknown) SpO2 97% BMI 43.78 kg/m? GENERAL: Alert, no distress, cooperative NEURO: Negative, Grossly normal cognition, motor function, and cranial nerves III-XII, Gait normal. Reflexes normal and symmetric. Sensation grossly intact, Cranial nerves II-XII intact INFORMATION PROVIDED TO PATIENT: Nonepileptic events- DIET: Resume pre-hospital diet ACTIVITY: Nonepileptic Event Precautions: no bathing or swimming unsupervised, no driving, no use of heavy machinery, no use of sharp moving objects (i.e. power tools), avoid heights. If active nonepileptic events, driving will need to be cleared by a mental health provider. Driving laws vary state to state, please refer to state law for restrictions. ALLERGIES Allergen Reactions Sumatriptan Vomiting Zpak [Azithromycin] Diarrhea Diarrhea AND stomach pain DISCHARGE MEDICATION: Medication List CONTINUE taking these medications busPIRone HCl 30 mg tablet cholecalciferol 5,000 unit Tab Commonly known as: Vitamin D-3 Take 1 tablet by mouth once daily. * FLUoxetine 40 mg capsule Commonly known as: PROzac * FLUoxetine 10 mg capsule Commonly known as: PROzac * gabapentin 300 mg capsule Commonly known as: NEURONTIN * gabapentin 100 mg capsule Commonly known as: NEURONTIN hydrOXYzine pamoate 25 mg capsule Commonly known as: VISTARIL * levonorgestrel-ethinyl estradiol 0.15 mg-30 mcg (91) per tab, 3 month pack * JOLESSA 0.15 mg-30 mcg (91) per tab, 3 month pack Generic drug: levonorgestrel-ethinyl estradiol NURTEC ODT 75 mg disintegrating tablet Generic drug: rimegepant ondansetron orally disintegrating 4 mg disintegrating tablet Commonly known as: ZOFRAN ODT dissolve 1 tablet ON TONGU (more content not included)... Normal [facility] NURSING PROGon 05-03-2024 NURSING PROG HNO ID: [id number] Author: SUZY JULIAN RN Service: Nursing Author Type: Registered Nurse Type: Nursing Progress Note Filed: 05/03/2024 11:02 Note Text: Summary: Discharge from M6013 Pt discharged from M60. Verbally understands discharge instructions, follow up appointments and medication regimen. IV taken out, intact. EEG electrodes and telemetry leads off. No further questions or concerns. Awaiting transport. Suzy Julian RN Normal [facility] SOCIAL WORKon 05-02-2024 SOCIAL WORK HNO ID: [id number] Author: JALEN CASTILLO LISW Service: Social Work Author Type: Seal Delivery Vehicle Team Technician Type: Social Work Filed: 05/02/2024 15:46 Note Text: SOCIAL WORK PROGRESS NOTE SERVICE DATE: 05/02/2024 SERVICE TIME: 2:15 PM SW present during patient rounds with Dr. Oneil when patient was presented with diagnosis of PNES given episodes captured during EMU admission. SW met with patient following rounds for additional education. Patient initially voices concerns that this diagnosis means it's all in my head. SW provided additional education/clarification regarding misconceptions associated with PNES diagnosis as well as contributing factors. SW provided patient with education regarding PNES and recommended treatment of CBT. SW provided patient with options for additional PNES education, including information for workbook Taking Control of Your Seizures. SW spoke with patient regarding out patient CBT program offered through [facility]. Patient agreeable to follow with [facility] and SW requested appointment on her behalf. SW will continue to follow as needed. SIGNATURE: LINO Cruz PATIENT NAME: Donnie Maldonado DATE: May 02, 2024 TIME: 3:43 PM PAGER/CONTACT #: [phone] Normal [facility] NURSING PROGon 04-30-2024 NURSING PROG HNO ID: [id number] Author: KOSTA OLEARY, RN Service: Nursing Author Type: Registered Nurse Type: Nursing Progress Note Filed: 04/30/2024 23:24 Note Text: Other: Reinforced indications for sleep deprivation. Patient agreeable. Patient slept deprived until 2300. Encourage to stay awake longer. Normal [facility] SOCIAL WORKon 04-30-2024 SOCIAL WORK HNO ID: [id number] Author: JALEN CASTILLO LISW Service: Social Work Author Type: Seal Delivery Vehicle Team Technician Type: Social Work Filed: 05/01/2024 09:33 Note Text: EMU SOCIAL WORK ASSESSMENT SERVICE DATE: 04/30/2024 SERVICE TIME: 2:55 PM REASON FOR CONSULT: Assessment secondary to EMU admission HPI: Patient is a 24 year old female with a past medical history of chronic headaches, Generalized Anxiety Disorder, suicide attempt x2, somatoform disorder/psychogenic non-epileptic events (2016), Major Depressive Disorder and concussion is admitted to the Epilepsy Monitoring Unit for diagnosis of events of unclear etiology. She was previously diagnosed with vasovagal syncope vs psychogenic non-epileptic events in 2016 and reports that episodes are similar but much more intense and frequent now. Current episodes occur near daily and triggered by physical activity, video games and lights. She describes them as feeling out of it, dizzy, lightheaded, nauseated, very hot, diaphoretic with muffled hearing that can last hours followed by black out episodes or staring with unawareness. Patient states that she may also black out at times without prodromal symptoms. Her only clear epilepsy risk factor is FH of seizures in a maternal GM. Episodes have not been previously recorded with video-EEG. SW spoke with patient regarding goal of admission. Patient voices a desire to determine the cause of episodes she has been experiencing since 2012, noting she has been given several potential diagnoses over the years but nothing concrete. HISTORY OBTAINED FROM: Patient CHILDHOOD HISTORY: Patient was reared by her biological parents, noting she has two older siblings her mother adopted during her previous marriage. Patient notes her father had medical difficulties in 2011 which resulted in personality changes for him and an inability for him to work. She describes some emotional trauma as a result. Of note, review of patient chart indicates patient's biological father has a diagnosis of conversion disorder. EDUCATION/EMPLOYMENT HISTORY: Patient is a high school graduate and informs she was home schooled for the entirety of her education. She reports having completed some college education, but was unable to finish her degree secondary to her health difficulties. She was studying Information Technology and computer programming. Patient is not working and notes she has not been able to work at any point in her life. She reports receiving social security benefits secondary to depression, anxiety, and somatoform disorder. PSYCHIATRIC HISTORY: Patient identifies a history of depression, anxiety, and somatoform disorder. She is established with psychiatry and psychotherapy through [facility], noting she sees her therapist every other week and her psychiatrist once per month. Patient informs of suicidal ideations in the past, last occurring in 2019. She informs she was hospitalized at this time along with two additional incidents prior. Patient denies current suicidal ideations or history of ideations since 2019. SW inquired about mood recently. Patient informs of on-going difficulties with depressed mood and anxiety, feeling as though these are both worse than they have been historically (although not currently suicidal). She attributes her difficulties with depression and anxiety to her health difficulties and the impact they have on her ability to function on a day to day basis. Patient indicates she has lower energy and motivation, finding that she is sleeping for 12+ hours per day secondary to her health concerns. She denies difficulties or changes in appetite. Patient informs of a need to take her PRN anxiety medication 1-2 times per week stating she will take it when her anxiety gets really bad and her arms begin to become stiff. Patient acknowledges a prior diagnosis of somatoform disorder, but voices limited understanding as to why this diagnosis was made. She indicates it may have been related to her prior stomach issues but this was since found to have a physiological cause. SUBSTANCE ABUSE HISTORY: Patient denies any current or previous substance abuse issues. LEGAL HISTORY: Patient denies any current or previous legal issues. ADULT TRAUMA HISTORY: No adult trauma history disclosed at this time. MARITAL HISTORY: Patient is not currently and has not been previously. She is in a partnered relationship with her girlfriend, noting they initially began dating in 2019 but were broken up for some time and started dating again last year. Patient does not have children. CURRENT SOCIAL SITUATION: Patient resides with her parents. She is not working and is not driving. Patient is independent with all ADLs and does not require the use of DME. She notes she has been using a motorized scooter when she goes to the store, citing difficulties with energy as contributing to her need to use (more content not included)... Normal [facility] POTASSIUMon 04-29-2024 Potassium [Moles/Vol] 4.0 mmol/L Normal 3.7-5.1 [facility] Comment on above: Order Comment: Speci men Type: BLOOD SPECIMENOrdering Facility: [facility] Address: [address] [place] [address] Performed By: #### K 1 ####[facility] LABCLIA [id number] [facility] [id number] [address] [place] CBC W Auto Differential pane l (Bld)on 04-28-2024 Basophils (Bld) [#/Vol] 0.04 10*3/uL Normal <0.11 [facility] Comment on above: Order Comment: Speci men Type: BLOOD SPECIMENOrdering Facility: [facility] Address: [address] [place] [address] Performed By: #### 5 7021-8 ####[facility] LABCLIA [id number] [place] [address] [place] Basophils/100 WBC (Bld) 0.5 % Normal [facility] Comment on above: Order Comment: Speci men Type: BLOOD SPECIMENOrdering Facility: [facility] Address: [address] [place] [address] Performed By: #### 5 7021-8 ####[facility] LABCLIA [id number] [place] [address] [place] Differential cell count method Nom (Bld) Auto Normal [facility] Comment on above: Order Comment: Speci men Type: BLOOD SPECIMENOrdering Facility: [facility] Address: [address] [place] [address] Performed By: #### 5 7021-8 ####[facility] LABCLIA [id number] [place] [address] [place] Eosinophils (Bld) [#/Vol] 0.38 10*3/uL Normal <0.46 [facility] Comment on above: Order Comment: Speci men Type: BLOOD SPECIMENOrdering Facility: [facility] Address: [address] [place] [address] Performed By: #### 5 7021-8 ####[facility] LABCLIA [id number] [place] [address] [place] Eosinophils/100 WBC (Bld) 4.4 % Normal [facility] Comment on above: Order Comment: Speci men Type: BLOOD SPECIMENOrdering Facility: [facility] Address: [address] [place] [address] Performed By: #### 5 7021-8 ####[facility] LABCLIA [id number] [place] [address] [place] Erythrocyte distribution width (RBC) [Ratio] 13.1 % Normal 11.5-15.0 [facility] Comment on above: Order Comment: Speci men Type: BLOOD SPECIMENOrdering Facility: [facility] Address: [address] [place] [address] Performed By: #### 5 7021-8 ####[facility] LABCLIA [id number] [place] [address] [place] Hematocrit (Bld) [Volume fraction] 35.4 % Low 36.0-46.0 [facility] Comment on above: Order Comment: Speci men Type: BLOOD SPECIMENOrdering Facility: [facility] Address: [address] [place] [address] Performed By: #### 5 7021-8 ####[facility] LABIA [id number] [place] [address] [place] Hemoglobin (Bld) [Mass/Vol] 12.3 g/dL Normal 11.5-15.5 [facility] [facility] Comment on above: Order Comment: Speci men Type: BLOOD SPECIMENOrdering Facility: [facility] Address: [address] [place] [address] Performed By: #### 5 7021-8 ####[facility] LABIA [id number] [place] [address] [place] Immature granulocytes (Bld) [#/Vol] 0.05 10*3/uL Normal <0.10 [facility] Comment on above: Order Comment: Speci men Type: BLOOD SPECIMENOrdering Facility: [facility] Address: [address] [place] [address] Performed By: #### 5 7021-8 ####[facility] LABCLIA [id number] [place] [address] [place] Immature granulocytes/100 WBC (Bld) 0.6 % Normal [facility] Comment on above: Order Comment: Speci men Type: BLOOD SPECIMENOrdering Facility: [facility] Address: [address] [place] [address] Performed By: #### 5 7021-8 ####[facility] LABCLIA [id number] [place] [address] [place] Lymphocytes (Bld) [#/Vol] 3.08 10*3/uL Normal 1.00-4.00 [facility] Comment on above: Order Comment: Speci men Type: BLOOD SPECIMENOrdering Facility: [facility] Address: [address] [place] [address] Performed By: #### 5 7021-8 ####[facility] LABCLIA [id number] [place] [address] [place] Lymphocytes/100 WBC (Bld) 35.3 % Normal [facility] Comment on above: Order Comment: Speci men Type: BLOOD SPECIMENOrdering Facility: [facility] Address: [address] [place] [address] Performed By: #### 5 7021-8 ####[facility] LABCLIA [id number] [place] [address] [place] MCH (RBC) [Entitic mass] 31.1 pg Normal 26.0-34.0 [facility] Comment on above: Order Comment: Speci men Type: BLOOD SPECIMENOrdering Facility: [facility] Address: [address] [place] [address] Performed By: #### 5 7021-8 ####[facility] LABIA [id number] [place] [address] [place] MCHC (RBC) [Mass/Vol] 34.7 g/dL Normal 30.5-36.0 [facility] Comment on above: Order Comment: Speci men Type: BLOOD SPECIMENOrdering Facility: [facility] Address: [address] [place] [address] Performed By: #### 5 7021-8 ####[facility] LABCLIA [id number] [place] [address] [place] MCV (RBC) [Entitic vol] 89.4 fL Normal 80.0-100.0 [facility] Comment on above: Order Comment: Speci men Type: BLOOD SPECIMENOrdering Facility: [facility] Address: [address] [place] [address] Performed By: #### 5 7021-8 ####[facility] LABCLIA [id number] [place] [address] [place] Monocytes (Bld) [#/Vol] 0.32 10*3/uL Normal <0.87 [facility] Comment on above: Order Comment: Speci men Type: BLOOD SPECIMENOrdering Facility: [facility] Address: [address] [place] [address] Performed By: #### 5 7021-8 ####[facility] LABCLIA [id number] [place] [address] [place] Monocytes/100 WBC (Bld) 3.7 % Normal [facility] Comment on above: Order Comment: Speci men Type: BLOOD SPECIMENOrdering Facility: [facility] Address: [address] [place] [address] Performed By: #### 5 7021-8 ####[facility] LABCLIA [id number] [place] [address] [place] Neutrophils (Bld) [#/Vol] 4.85 10*3/uL Normal 1.45-7.50 [facility] Comment on above: Order Comment: Speci men Type: BLOOD SPECIMENOrdering Facility: [facility] Address: [address] [place] [address] Performed By: #### 5 7021-8 ####[facility] LABCLIA [id number] [place] [address] [place] Neutrophils/100 WBC (Bld) 55.5 % Normal [facility] Comment on above: Order Comment: Speci men Type: BLOOD SPECIMENOrdering Facility: [facility] Address: [address] [place] [address] Performed By: #### 5 7021-8 ####[facility] LABCLIA [id number] [place] [address] [place] Nucleated RBC (Bld) [#/Vol] 10*3/uL Normal <0.01 [facility] Comment on above: Order Comment: Speci men Type: BLOOD SPECIMENOrdering Facility: [facility] Address: [address] [place] [address] Performed By: #### 5 7021-8 ####[facility] LABCLIA [id number] [place] [address] [place] Nucleated RBC/100 WBC (Bld) [Ratio] 0.0 /100 WBC Normal [facility] Comment on above: Order Comment: Speci men Type: BLOOD SPECIMENOrdering Facility: [facility] Address: [address] [place] [address] Performed By: #### 5 7021-8 ####[facility] LABIA [id number] [place] [address] [place] Platelet mean volume (Bld) [Entitic vol] 7.8 fL Low 9.0-12.7 [facility] Comment on above: Order Comment: Speci men Type: BLOOD SPECIMENOrdering Facility: [facility] Address: [address] [place] [address] Performed By: #### 5 7021-8 ####[facility] LABIA [id number] [place] [address] [place] Platelets (Bld) [#/Vol] 344 10*3/uL Normal 150-400 [facility] Comment on above: Order Comment: Speci men Type: BLOOD SPECIMENOrdering Facility: [facility] Address: [address] [place] [address] Performed By: #### 5 7021-8 ####[facility] LABCLIA [id number] [place] [address] [place] RBC (Bld) [#/Vol] 3.96 10*6/uL Normal 3.90-5.20 [facility] Comment on above: Order Comment: Speci men Type: BLOOD SPECIMENOrdering Facility: [facility] Address: [address] [place] [address] Performed By: #### 5 7021-8 ####[facility] LABCLIA [id number] [place] [address] [place] WBC (Bld) [#/Vol] 8.72 10*3/uL Normal 3.70-11.00 [facility] Comment on above: Order Comment: Speci men Type: BLOOD SPECIMENOrdering Facility: [facility] Address: [address] [place] [address] Performed By: #### 5 7021-8 ####[facility] LABCLIA [id number] [place] [address] [place] Comprehensive metabolic 2000 panelon 04-28-2024 Albumin [Mass/Vol] 3.5 g/dL Low 3.9-4.9 [facility] Comment on above: Order Comment: Speci men Type: BLOOD SPECIMENOrdering Facility: [facility] Address: [address] [place] [address] Performed By: #### 1 9123-9, 3016-3, 25865-2, 2777-1 ####[facility] LABCLIA [id number] [place] [address] [place] ALP [Catalytic activity/Vol] 81 U/L Normal 34-123 [facility] Comment on above: Order Comment: Speci men Type: BLOOD SPECIMENOrdering Facility: [facility] Address: [address] [place] [address] Performed By: #### 1 9123-9, 3016-3, 99349-5, 2777-1 ####[facility] LABCLIA [id number] [place] [address] [place] ALT [Catalytic activity/Vol] 14 U/L Normal 7-38 [facility] Comment on above: Order Comment: Speci men Type: BLOOD SPECIMENOrdering Facility: [facility] Address: [address] [place] [address] Performed By: #### 1 9123-9, 3016-3, 38682-9, 2776-1 ####[facility] LABCLIA [id number] [place] [address] [place] Anion gap [Moles/Vol] 14 mmol/L Normal 8-15 [facility] Comment on above: Order Comment: Speci men Type: BLOOD SPECIMENOrdering Facility: [facility] Address: [address] [place] [address] Performed By: #### 1 9123-9, 6-3, 22006-2, 2776-1 ####[facility] LABCLIA [id number] [place] [address] [place] AST [Catalytic activity/Vol] 11 U/L Low 13-35 [facility] Comment on above: Order Comment: Speci men Type: BLOOD SPECIMENOrdering Facility: [facility] Address: [address] [place] [address] Performed By: #### 1 9123-9, 3016-3, 31711-4, 2776-1 ####[facility] LABCLIA [id number] [place] [address] [place] Bilirubin [Mass/Vol] 0.2 mg/dL Normal 0.2-1.3 [facility] Comment on above: Order Comment: Speci men Type: BLOOD SPECIMENOrdering Facility: [facility] Address: [address] [place] [address] Performed By: #### 1 9123-9, 3016-3, 39824-2, 2776-1 ####[facility] LABCLIA [id number] [place] [address] [place] Calcium [Mass/Vol] 8.2 mg/dL Low 8.5-10.2 [facility] Comment on above: Order Comment: Speci men Type: BLOOD SPECIMENOrdering Facility: [facility] Address: [address] [place] [address] Performed By: #### 1 9123-9, 3016-3, 23838-4, 2776-1 ####[facility] LABCLIA [id number] [place] [address] [place] Chloride [Moles/Vol] 108 mmol/L High 98-107 [facility] Comment on above: Order Comment: Speci men Type: BLOOD SPECIMENOrdering Facility: [facility] Address: [address] [place] [address] Performed By: #### 1 9123-9, 6-3, 14048-2, 2776- ####[facility] LABCLIA [id number] [place] [address] [place] CO2 [Moles/Vol] 17 mmol/L Low 22-30 [facility] Comment on above: Order Comment: Speci men Type: BLOOD SPECIMENOrdering Facility: [facility] Address: [address] [place] [address] Performed By: #### 1 9123-9, 6-3, 41112-0, 2776- ####[facility] LABCLIA [id number] [place] [address] [place] Creatinine [Mass/Vol] 0.50 mg/dL Low 0.58-0.96 [facility] Comment on above: Order Comment: Speci men Type: BLOOD SPECIMENOrdering Facility: [facility] Address: [address] [place] [address] Performed By: #### 1 9123-9, 3016-3, 19074-3, 2776-1 ####[facility] LABCLIA [id number] [place] [address] [place] Creatinine and Glomerular filtration rate.predicted panel (S/P/Bld) 133 mL/min/1.73m??? Normal >=60 [facility] Comment on above: Order Comment: Karina larson Type: BLOOD SPECIMENOrdering Facility: [facility] Address: [address] [place] [address] Result Comment: Nova mated Glomerular Filtration Rate (eGFR) is calculated using the 2020 CKD-EPI creatinine equation. This equation utilizes serum creatinine, sex, and age as parameters. The creatinine assay has traceable calibration to isotope dilution-mass spectrometry. Refer to KDIGO guidelines for clinical interpretation. In patients with unstable renal function, e.g. those with acute kidney injury, the eGFR may not accurately reflect actual GFR. Performed By: #### 1 9123-9, 3016-3, 13741-3, 7- ####[facility] LABCLIA [id number] [place] [address] [place] Glucose [Mass/Vol] 126 mg/dL High 74-99 [facility] Comment on above: Order Comment: Karina larson Type: BLOOD SPECIMENOrdering Facility: [facility] Address: [address] [place] [address] Result Comment: The [place] Diabetes Association (ADA) provides guidance for cutoff values for fasting glucose and random glucose. The ADA defines fasting as no caloric intake for at least 8 hours. Fasting plasma glucose results between 100 to 125 mg/dL indicate increased risk for diabetes (prediabetes). Fasting plasma glucose results greater than or equal to 126 mg/dL meet the criteria for diagnosis of diabetes. In the absence of unequivocal hyperglycemia, results should be confirmed by repeat testing. In a patient with classic symptoms of hyperglycemia or hyperglycemic crisis, random plasma glucose results greater than or equal to 200 mg/dL meet the criteria for diagnosis of diabetes. Reference: Standards of Medical Care in Diabetes 2016, [place] Diabetes Association. Diabetes Care. 2016.39(Suppl 1). Performed By: #### 1 9123-9, 3016-3, 04593-1, 2777-1 ####[facility] LABCLIA [id number] [place] [id number] [place] Potassium [Moles/Vol] 3.2 mmol/L Low 3.7-5.1 [facility] Comment on above: Order Comment: Speci men Type: BLOOD SPECIMENOrdering Facility: [facility] Address: [address] [place] [address] Performed By: #### 1 9123-9, 3016-3, 77903-9, 2777-1 ####[facility] LABCLIA [id number] [place] [address] [place] Protein [Mass/Vol] 5.9 g/dL Low 6.3-8.0 [facility] Comment on above: Order Comment: Speci men Type: BLOOD SPECIMENOrdering Facility: [facility] Address: [address] [place] [address] Performed By: #### 1 9123-9, 3016-3, 00592-9, 2776-1 ####[facility] LABCLIA [id number] [place] [address] [place] Sodium [Moles/Vol] 139 mmol/L Normal 136-144 [facility] Comment on above: Order Comment: Speci men Type: BLOOD SPECIMENOrdering Facility: [facility] Address: [address] [place] [address] Performed By: #### 1 9123-9, 3016-3, 06179-5, 277-1 ####[facility] LABCLIA [id number] [place] [address] [place] Urea nitrogen [Mass/Vol] 8 mg/dL Normal 7-21 [facility] Comment on above: Order Comment: Speci men Type: BLOOD SPECIMENOrdering Facility: [facility] Address: [address] [place] [address] Performed By: #### 1 9123-9, 3016-3, 89076-7, 2777-1 ####[facility] LABCLIA [id number] [facility] [place] [id number] [place] GABAPENTIN/NEURONTINon 04-28 GABAPENTIN <0.5 Low 2.0-20.0 [facility] Comment on above: Order Comment: Speci men Type: BLOOD SPECIMENOrdering Facility: [facility] Address: [address] [place] [address] Result Comment: INTE RPRETIVE INFORMATION: Gabapentin Therapeutic Range: 2 - 20 ug/mL Toxic: Not well established Pharmacokinetics of gabapentin vary widely among patients, particularly those with compromised renal function. Adverse effects may include somnolence, dizziness, ataxia, and fatigue. This test was developed and its performance characteristics determined by [facility]. It has not been cleared or approved by the [place] Food and Drug Administration. This test was performed in a CLIA certified laboratory and is intended for clinical purposes. Performed By: [facility] [address] [place] [address] Medical Office Assistant: Lazaro Oleary MD, PhD CLIA Number: [id number] Performed By: #### G HERLINDA ####[facility] [id number] [place] [address] HCG Preg Ur Qlon 04-28-2024 HCG ( test) Ql (U) Negative Normal Negative [facility] Comment on above: Order Comment: Speci men Type: URINE SPECIMENOrdering Facility: [facility] Address: [address] [place] [address] Result Comment: This test is intended to aid in the early detection of . Very dilute urine samples, as indicated by a low specific gravity, may not contain account development representative levels of hCG. This test detects intact hCG only. This test does not reliably detect hCG degradation products, including free-beta subunit and beta-core fragment. Therefore, this test may show reduced reactivity in urine after 8 weeks gestation. A number of conditions other than , including trophoblastic disease and certain non-trophoblastic neoplasms cause elevated levels of hCG. As with any assay employing mouse antibodies, the possibility exists for interference by human anti-mouse antibodies (HAMA) in the specimen. The test provides a presumptive diagnosis for . Performed By: #### 2 106-3 ####[facility] LABCLIA [id number] [facility] [id number] [id number] [place] Magnesium SerPl-mCncon 04-28 Magnesium [Mass/Vol] 1.8 mg/dL Normal 1.7-2.3 [facility] Comment on above: Order Comment: Karina larson Type: BLOOD SPECIMENOrdering Facility: [facility] Address: [address] [place] [address] [place] [address] Performed By: #### 1 9123-9, 3016-3, 09212-2, 2777-1 ####[facility] LABCLIA [id number] [place] [address] [address] NURSING PROGon 04-28-2024 NURSING PROG HNO ID: [id number] Author: ISABEL TUTTLE RN Service: ? Author Type: Registered Nurse Type: Nursing Progress Note Filed: 04/28/2024 12:12 Note Text: Pt admitted to m60-13, oriented to room/unit. Safety and sz precautions initiated. Will continue to monitor and provide support. Normal [facility] PT panel Coag (PPP)on 2023 INR Coag (PPP) [Relative time] 1.0 {INR} Normal 0.9-1.3 [facility] Comment on above: Order Comment: Karina larson Type: BLOOD SPECIMENOrdering Facility: [facility] Address: [address] [place], [place] [address] [address] Result Comment: Cyndi min K Antagonist (VKA) Therapeutic Range: INR 2 to 3 (Target INR of 2.5) Note: For patients treated with VKA drugs, such as warfarin, the [place] [employer] 2012 Guideline recommends a therapeutic INR range of 2 to 3 (target INR of 2.5). This recommendation includes high-risk patients with antiphospholipid syndrome with previous arterial or venous thromboembolism, current-generation mechanical or bioprosthetic aortic heart valve replacement. Note: Patients with mechanical aortic valve replacement and additional risk factors for thromboembolic events (atrial fibrillation, previous thromboembolism, LV dysfunction, hypercoagulable conditions) or an older generation mechanical AVR (i.e., ball in-Cage) or any mechanical MVR should have a INR therapeutic range of 2.5 to 3.5 (target INR of 3). Nurys GH, et al. Chest 2012, 141:7S-47S Gayatri RA et al. JACC 2017, 70: 252-289 Performed By: #### 3 4528-0, 48962-4 ####[facility] LABIA [id number] [address] [address] [place] PT Coag (PPP) [Time] 10.6 s Normal 9.7-13.0 [facility] Comment on above: Order Comment: Speci men Type: BLOOD SPECIMENOrdering Facility: [facility] Address: [address] [place] [address] Performed By: #### 3 4528-0, 94573-8 ####[facility] LABIA [id number] [place] [address] [place] Phosphate SerPl-mCncon 04-28 Phosphate [Mass/Vol] 2.5 mg/dL Low 2.7-4.8 [facility] Comment on above: Order Comment: Speci men Type: BLOOD SPECIMENOrdering Facility: [facility] Address: [address] [place] [address] Performed By: #### 1 9123-9, 3016-3, 51622-8, 2777-1 ####[facility] [id number] [place] [address] [place] TOXICOLOGY SCREEN, ROUTINE U RINEon 04-28-2024 Amphetamines Confirm (U) [Mass/Vol] Negative Normal Negative [facility] Comment on above: Order Comment: Speci men Type: URINE SPECIMENOrdering Facility: [facility] Address: [address] [place] [address] Result Comment: Cuto ff threshold at 1000 ng/mL. Performed By: #### U TOX2 ####[facility] LABIA [id number] [place] [address] [place] BARBITURATES, URINE Negative Normal Negative [facility] Comment on above: Order Comment: Speci men Type: URINE SPECIMENOrdering Facility: [facility] Address: [address] [place] [address] Result Comment: Cuto ff threshold at 200 ng/mL. Performed By: #### U TOX2 ####[facility] LABCLIA [id number] [place] [address] [place] BENZODIAZEPINES, UR Negative Normal Negative [facility] Comment on above: Order Comment: Speci men Type: URINE SPECIMENOrdering Facility: [facility] Address: [address] [place] [address] Result Comment: Cuto ff threshold at 200 ng/mL. Performed By: #### U TOX2 ####[facility] LABIA [id number] [place] [address] [place] Cannabinoids Screen Ql (U) Negative Normal Negative [facility] Comment on above: Order Comment: Speci men Type: URINE SPECIMENOrdering Facility: [facility] Address: [address] [place] [address] Result Comment: Cuto ff threshold at 50 ng/mL. Performed By: #### U TOX2 ####[facility] LABIA [id number] [place] [address] [place] Cocaine Ql (U) Negative Normal Negative [facility] Comment on above: Order Comment: Speci men Type: URINE SPECIMENOrdering Facility: [facility] Address: [address] [place] [address] Result Comment: Cuto ff threshold at 300 ng/mL. Performed By: #### U TOX2 ####[facility] LABCLIA [id number] [place] [address] [place] Ethanol (U) [Mass/Vol] <11 Normal <11 [facility] Comment on above: Order Comment: Speci men Type: URINE SPECIMENOrdering Facility: [facility] Address: [address] [place] [address] Performed By: #### U TOX2 ####[facility] LABCLIA [id number] [place] [address] [place] [address] [place] Opiates Screen Ql (U) Negative Normal Negative [facility] Comment on above: Order Comment: Speci men Type: URINE SPECIMENOrdering Facility: [facility] Address: [address] [place] [address] Result Comment: Cuto ff threshold at 300 ng/mL. Performed By: #### U TOX2 ####[facility] LABCLIA [id number] [address] [place] oxyCODONE cutoff Screen (U) [Mass/Vol] Negative Normal Negative [facility] Comment on above: Order Comment: Speci men Type: URINE SPECIMENOrdering Facility: [facility] Address: [address] [place] [address] Result Comment: Cuto ff threshold at 100 ng/mL. Performed By: #### U TOX2 ####[facility] LABCLIA [id number] [address] Phencyclidine Ql (U) Negative Normal Negative [facility] Comment on above: Order Comment: Speci men Type: URINE SPECIMENOrdering Facility: [facility] Address: [address] [place] [address] Result Comment: Cuto ff threshold at 25 ng/mL. Performed By: #### U TOX2 ####[facility] LABCLIA [id number] [place] [address] [place] TSH SerPl-aCncon 04-28-2024 TSH Qn 1.700 m[IU]/L Normal 0.270-4.20 0 [facility] Comment on above: Order Comment: Speci men Type: BLOOD SPECIMENOrdering Facility: [facility] Address: [address] [place] [address] Result Comment: If t he patient is , TSH reference range varies by gestational period: First Trimester (weeks 9-12): 0.180-2.990 mIU/L Second Trimester: 0.110-3.980 mIU/L Third Trimester: 0.480-4.710 mIU/L Braydon De Los Santos et al. A Practical Approach for the Verifications and Determination of Site- and Trimester-Specific Reference Intervals for Thyroid Function tests in . Thyroid, 2019:29:3:412-420. Samy E, et al. 2017 Guidelines of the [place] Thyroid Association for the Diagnosis and Management of Thyroid Disease during and the . Thyroid, 2017:27:3:315-389. Performed By: #### 1 9123-9, 3016-3, 34940-6, 2777-1 ####[facility] LABCLIA [id number] [place] [id number] [place] Topiramate SerPl-mCncon 04-15 Topiramate [Mass/Vol] <1.5 Low 5.0-20.0 [facility] Comment on above: Order Comment: Speci men Type: BLOOD SPECIMENOrdering Facility: [facility] Address: [address] [place] [address] Result Comment: Refe rence ranges and high/low indicator flags are provided as general guidelines only. The treating physician must determine appropriate target levels/dosing based on the specific clinical situation. Result rechecked. This test was developed, and its performance characteristics determined by the [facility] Department of Pathology and Laboratory Medicine. It has not been cleared or approved by the FDA. The [facility] Department of Pathology and Laboratory Medicine is regulated under CLIA as qualified to perform high-complexity testing. This test is used for clinical purposes. It should not be regarded as investigational or for research. Performed By: #### 1 7713-9 ####[facility] LABIA [id number] [place] [id number] [place] aPTT PPPon 04-28-2024 aPTT Coag (PPP) [Time] 28.8 s Normal 23.0-32.4 [facility] Comment on above: Order Comment: Speci men Type: BLOOD SPECIMENOrdering Facility: [facility] Address: [address] [place] [address] Performed By: #### 3 4528-0, 28109-4 ####[facility] LABCLIA [id number] [address] [address] [place] HISTORY PHYSICALon 4 HISTORY PHYSICAL HNO ID: [id number] Author: CRISTEL PABLO MD Service: Neurology Adult Epilepsy Author Type: Physician Type: H&P Filed: 04/30/2024 11:33 Note Text: NEURO EPILEPSY ADMIT NOTE SERVICE DATE: 04/28/2024 SERVICE TIME: 12:42 PM NIGHT AND WEEKEND COVERAGE: After 5 pm and over the weekends, please page [phone] to contact the epilepsy resident/fellow/provider networks software consultant ATTENDING PHYSICIAN: [facility] UNIT: M60 - Adult Epilepsy Monitoring Unit (EMU) SERVICE: Adult Epilepsy Subjective CHIEF COMPLAINT: Episodes of unclear etiology Patient Major Comorbidities:chronic headaches, Generalized Anxiety Disorder, suicide attempt x2, somatoform disorder/psychogenic non-epileptic events (2015), depression and concussion PRESENT ILLNESS: This is a 24 year old right handed female who presents with a chief complaint of seizure like episodes. Patient has a history of similiar episodes that began in 2012, reports told various diagnosis including vasovagal syncope and psychogenic non-epileptic events that resolved. Patient and her parents report that new events started to occur mid 2022 that were much more frequent and intense than previous episodes. Patient states that several times a day she will feel out of it , dizzy, lightheaded, nauseated, very hot, diaphoretic with muffled hearing that can last hours followed by blacks out episodes or staring with unawareness. Patient states that at times she may have all of these symptoms but not blacking out or staring. Most often these events happen unwitnessed, especially in the middle of the night when she is getting up to go to the bathroom. Sometimes does not have the myriad of symptoms and will just black out. Patient reports being told that she stares into space at times and does not respond, patient states not being aware this is happening as she is out of it. Patient and parents explain that in an effort to avoid events, the patient has been mostly lying in bed or on the couch as even walking makes her feel dizzy, lightheaded and short of breath. She has been riding a mobility scooter in the last 2 months. They have seen PCP for episodes but have not mentioned SOB while walking. Notes on occasions having low blood pressures. Currently is taking Topamax for migraines and Gabapentin for pain and anxiety. She was seen by Dr. Lock on 04/09/2024, see further details from this visit below in italics, reviewed with patient. SEIZURE HISTORY: Donnie has a history of significant mental health concerns including debilitating social anxiety and depression which she is on disability for. Depression intensified in 2007 after her father began to experience medically unexplained symptoms and lost his job, resulting in the family losing their home. Father began working again in 2009 but became ill again and never worked again. Patient's initial syncopal episodes began approximately the same time that father stopped working the second time in 2012. Donnie was home schooled due to family preference. She spent very little time with other people her age and reported concern about being around others in public places. Per Care Everywhere, patient was diagnosed psychogenic non-epileptic events in 11/19/2015 by [facility] and sent to psychology for somatic complaints including severe and debilitating headaches, chest pain and tightness, upset stomach, and seizure like episodes. She completed 17 sessions of CBT with Dr. Anil Terrell at [facility] between 2359-1425 but continues to see both a psychiatrist and a therapist. From initial visit with Dr. Lock on 04/09/2024 This is a 24-year-old right-handed woman who presents with a chief complaint of seizures. The history of episodes began 08/2012 (at 12 years of age), per her mother. Per review of EMR, she has a h/o headaches since at least 2004. They worsened in [address] Fabiano Mckinney 08/05/2009. Headaches improved in 2009 but recurred in 2011 when her father developed health problems. She also started to have syncopal episodes in 2011. Dr. Wilhelm noted a recurrent episode of syncope 08/2012. 24-hour Holter was normal. There were five syncopal episodes from 08/2012 to 11/2013, all while standing, with narrowing of vision and ringing in her ears before LOC, suggestive of vasovagal syncope. Per patient, initial episodes were characterized by everything going black and hearing goes, like someone's covering her ears. Symptoms last about 10 seconds before she loses consciousness. She often falls and injures herself. In 2012, they were happening every [address] Ramirez and someone at [facility]. She had 24-hour EEG in the hospital; no episodes were recorded. 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 They do not remember hearing an explanation of MAXINE. Episodes went away for several years, for no clear (more content not included)... Normal [facility] CNOVon 04-09-2024 CNOV Office Visit (NE50MN ) AUDIEGHAZALDONNIE Erin ([id number]) 2000 F Date Time Provider Department 04/09/24 9:00 AM EDWIN LOCK NE50MN During your visit today, we recorded the following information about you: Pulse Respiration Blood pressure Weight 60/minute 16/minute 92/52 108.9 kg Height 1.689 m Edwin Lock MD 04/09/2024 1:50 PM Signed [facility] EPILEPSY CLINIC NOTE - INITIAL VISIT CHIEF COMPLAINT: seizures, here for further evaluation and treatment. They are self-referred. She is here with parents. Current neurologist: Dr. Rios at [facility] in [place] who treats her for migraine PRESENT ILLNESS This is a 24-year-old right-handed woman who presents with a chief complaint of seizures. The history of episodes began 08/2012 (at 12 years of age), per her mother. Per review of EMR, she has a h/o headaches since at least 2004. They worsened in [address] Fabiano Mckinney 08/05/2009. Headaches improved in 2009 but recurred in 2011 when her father developed health problems. She also started to have syncopal episodes in 2011. Dr. Wilhelm noted a recurrent episode of syncope 08/2012. 24-hour Holter was normal. There were five syncopal episodes from 08/2012 to 11/2013, all while standing, with narrowing of vision and ringing in her ears before LOC, suggestive of vasovagal syncope. Per patient, initial episodes were characterized by everything going black and hearing goes, like someone's covering her ears. Symptoms last about 10 seconds before she loses consciousness. She often falls and injures herself. In 2012, they were happening every [address] Ramirez and someone at [facility]. She had 24-hour EEG in the hospital; no episodes were recorded. 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 They do not remember hearing an explanation of MAXINE. Episodes went away for several years, for no clear reason. Episodes recurred in 2023; patient thinks 10/2023. They are now happening 2x/week. Often, feels out of it dizzy, lightheaded, lasting hours before the episode. Even walking, feels dizzy, lightheaded and shortness of breath. She has been riding a mobility scooter in the last 2 months. They have seen PCP for episodes but have not mentioned SOB while walking. But even just sitting on sofa, she can start sweating hours before and episode. TYPICAL EPISODES: 1) Falling episodes Description: Patient experiences everything going black and losing hearing for about 10 seconds, and then loses consciousness, often finding herself on the floor. Witnesses: they often just hear her fall; when they have been in the same room, they see her staring, then she falls limp, motionless for about one minute, then gets up, then listless for the rest of the day. Duration: 1-2 minutes Frequency: 2/week 2) Staring episodes No aura. Parent report staring, with delayed responses but she does typically respond to them. Duration: 1-2 minutes Frequency: at least weekly Triggers: flashing lights, video games and early development: FT , delivered via due to breech presentation (mother was on bedrest since early , due to bleeding); normal early development RISK FACTORS FOR SEIZURES 1. Head Trauma (Yes, concussions but none before episodes started); 2. CONSERVATION SCIENCE OFFICER Infections (No); 3. Family History of Seizures (Yes, maternal GM had seizures starting in her 40's and father has undiagnosed episodes, possible neurosarcoid); 4. Developmental Delay (No); 5. Febrile Seizures (No); 6. CONSERVATION SCIENCE OFFICER Tumors (No); 7. CONSERVATION SCIENCE OFFICER Vascular Disease (No); 8. Significant Medical History (depression, anxiety, migraine). CURRENT MEDICATION Current Outpatient Medications Medication Sig - gabapentin (NEURONTIN) 100 mg capsule - levonorgestrel-ethinyl estradiol (JOLESSA) 0.15 mg-30 mcg (91) per tab, 3 month pack Take 1 tablet by mouth once daily. - FLUoxetine (PROZAC) 10 mg capsule Take 10 mg by mouth once daily. - pantoprazole DR (PROTONIX) 40 mg tablet Take 1 tablet by mouth once daily. - hydrOXYzine pamoate (VISTARIL) 25 mg capsule Take 1 capsule by mouth twice daily as needed. - FLUoxetine (PROZAC) 40 mg capsule Take 1 capsule by mouth once daily. - busPIRone HCl 30 mg tablet Take 1 tablet by mouth twice daily. - NURTEC ODT 75 mg disintegrating tablet Take 1 tablet by mouth every 48 hours as needed. - cholecalciferol (VITAMIN D-3) 5,000 unit tab Take 1 tablet by mouth once daily. - ondansetron orally disintegrating (ZOFRAN ODT) 4 mg disintegrating tablet dissolve 1 tablet ON TONGUE every 4 hours if needed for nausea and vomiting - gabapentin (NEURONTIN) 300 mg capsule Take 300 mg by mouth daily at bedtime. - topiramate (TOPAMAX) 100 mg tablet Take 100 mg by mouth two times a day. - levonorgestrel-ethinyl estradiol (more content not included)... Normal [facility] Basic Metabolic Profile (BMP )on 02-20-2024 BUN/CRE 14.9 RATIO Normal 10-20 [facility] Comment on above: Performed By: #### L 500.2500, L100.0100, L501.5200 #### [facility] [address] [place], [address] CA,Total 8.6 mg/dL Normal 8.5-10.1 [facility] Comment on above: Performed By: #### L 500.2500, L100.0100, L501.5200 #### [facility] [address] [place], [address] Chloride [Moles/Vol] 112 mmol/L High 98-107 [facility] Comment on above: Performed By: #### L 500.2500, L100.0100, L501.5200 #### [facility] [address] [place], [address] CO2 [Moles/Vol] 22.0 mmol/L Normal 21.0-32.0 [facility] Comment on above: Performed By: #### L 500.2500, L100.0100, L501.5200 #### [facility] [address] [place], [address] Creatinine [Mass/Vol] 0.81 mg/dL Normal 0.55-1.02 [facility] Comment on above: Result Comment: The validity of the calculated GFR GFRAA in patients over 70 years has not been determined. Clinical correlation is essential. Performed By: #### L 500.2500, L100.0100, L501.5200 #### [facility] [address] [place], [address] ECRCL 141.78 ml/min Normal [facility] Comment on above: Performed By: #### L 500.2500, L100.0100, L501.5200 #### [facility] [address] [place], [address] EST GFR - AA 110 mL/min Normal >60 [facility] Comment on above: Result Comment: Afri can Nigerien GFR Calc Performed By: #### L 500.2500, L100.0100, L501.5200 #### [facility] [address] [place], [address] GAP 6 Normal 5-15 [facility] Comment on above: Performed By: #### L 500.2500, L100.0100, L501.5200 #### [facility] [address] [place], [address] GFR/1.73 sq M.predicted among non-blacks MDRD (S/P/Bld) [Vol rate/Area] 91 mL/min/{1.73_m2} Normal >60 [facility] Comment on above: Result Comment: Non- GFR Calc Performed By: #### L 500.2500, L100.0100, L501.5200 #### [facility] [address] [place], [address] Glucose [Mass/Vol] 103 mg/dL Normal 74-106 [facility] Comment on above: Result Comment: Fast ing Glucose result from 100 to 125 mg/dL suggests IMPAIRED HOMEOSTASIS per A.D.A. criteria. Performed By: #### L 500.2500, L100.0100, L501.5200 #### [facility] [address] [place], [address] Potassium [Moles/Vol] 3.8 mmol/L Normal 3.5-5.1 [facility] Comment on above: Result Comment: Mode rate Hemolysis, Result may be falsely increased. Performed By: #### L 500.2500, L100.0100, L501.5200 #### [facility] [address] [place], [address] Sodium [Moles/Vol] 140 mmol/L Normal 136-145 [facility] Comment on above: Performed By: #### L 500.2500, L100.0100, L501.5200 #### [facility] [address] [place], [address] Urea nitrogen [Mass/Vol] 12 mg/dL Normal 7-18 [facility] Comment on above: Performed By: #### L 500.2500, L100.0100, L501.5200 #### [facility] [address] [place], [address] CBC W/Diff, Automatedon 07-0 8-2024 Absolute Lymph 3.26 X10 3/uL Normal 0.83-4.51 [facility] Comment on above: Performed By: #### L 500.2500, L100.0100, L501.5200 #### [facility] [address] [place], [address] Absolute Neut 5.0 X10 3/uL Normal 2.0-7.7 [facility] Comment on above: Performed By: #### L 500.2500, L100.0100, L501.5200 #### [facility] [address] [place], [address] Basophils/100 WBC (Bld) 0.7 % Normal 0-1 [facility] Comment on above: Performed By: #### L 500.2500, L100.0100, L501.5200 #### [facility] [address] [place], [address] Eosinophils/100 WBC (Bld) 4.3 % Normal 0-5 [facility] Comment on above: Performed By: #### L 500.2500, L100.0100, L501.5200 #### [facility] [address] [place], [address] Erythrocyte distribution width (RBC) [Ratio] 13.9 % Normal 11.6-14.6 [facility] Comment on above: Performed By: #### L 500.2500, L100.0100, L501.5200 #### [facility] [address] [place], [address] Hematocrit (Bld) [Volume fraction] 39.5 % Normal 37-47 [facility] Comment on above: Performed By: #### L 500.2500, L100.0100, L501.5200 #### [facility] [address] [place], [address] Hemoglobin (Bld) [Mass/Vol] 13.1 g/dL Normal 12.0-15.0 [facility] Comment on above: Performed By: #### L 500.2500, L100.0100, L501.5200 #### [facility] [address] [place], [address] IG% 0.200 Normal 0.0-0.9 [facility] Comment on above: Result Comment: IG% - Immature Granulocytes (promyelocytes, myelocytes and metamyelocytes) > 1% indicates that a LEFT SHIFT is Present. Performed By: #### L 500.2500, L100.0100, L501.5200 #### [facility] [address] [place], [address] Lymphocytes/100 WBC (Bld) 35.8 % Normal 19-41 [facility] Comment on above: Performed By: #### L 500.2500, L100.0100, L501.5200 #### [facility] [address] [place], [address] MCH (RBC) [Entitic mass] 30.0 pg Normal 27.0-32.0 [facility] Comment on above: Performed By: #### L 500.2500, L100.0100, L501.5200 #### [facility] [address] [place], [address] MCHC (RBC) [Mass/Vol] 33.2 g/dL Normal 32-36 [facility] Comment on above: Performed By: #### L 500.2500, L100.0100, L501.5200 #### [facility] [address] [place], [address] MCV (RBC) [Entitic vol] 90.6 fL Normal 81-99 [facility] Comment on above: Performed By: #### L 500.2500, L100.0100, L501.5200 #### [facility] [address] [place], [address] Monocytes/100 WBC (Bld) 4.6 % Normal 0-10 [facility] Comment on above: Performed By: #### L 500.2500, L100.0100, L501.5200 #### [facility] [address] [place], [address] Neutrophils/100 WBC (Bld) 54.4 % Normal 47-70 [facility] Comment on above: Performed By: #### L 500.2500, L100.0100, L501.5200 #### [facility] [address] [place], [address] Nucleated RBC (Bld) [#/Vol] 0 10*3/uL Normal 0-5 [facility] Comment on above: Performed By: #### L 500.2500, L100.0100, L501.5200 #### [facility] [address] [place], [address] Platelet mean volume (Bld) [Entitic vol] 7.9 fL Normal 6.2-12.0 [facility] Comment on above: Performed By: #### L 500.2500, L100.0100, L501.5200 #### [facility] [address] [place], [address] Platelets (Bld) [#/Vol] 383 10*3/uL Normal 150-450 [facility] Comment on above: Performed By: #### L 500.2500, L100.0100, L501.5200 #### [facility] [address] [place], [address] RBC (Bld) [#/Vol] 4.36 10*6/uL Normal 4.2-5.4 [facility] Comment on above: Performed By: #### L 500.2500, L100.0100, L501.5200 #### [facility] [address] [place], [address] RDW SD 46.2 fl High 35.1-43.9 [facility] Comment on above: Performed By: #### L 500.2500, L100.0100, L501.5200 #### [facility] [address] [place], [address] WBC (Bld) [#/Vol] 9.1 10*3/uL Normal 4.4-11.0 [facility] Comment on above: Performed By: #### L 500.2500, L100.0100, L501.5200 #### [facility] [address] [place], [address] Emergency Department Summary on 02-20-2024 Emergency Department Summary [facility] Medical Records Department [address] [place] [address] Emergency Department Summary 02/20/24 MR#: [id number] Acct: [id number] Name: DONNIE MALDONADO Rep #: [id number] : 2000 23 From: Cong Noriega DO PCP: Dr. Fani Baez MD Status:DEP ER Location: ED HPI History of Present Illness Chief Complaint: General Illness Informant: patient and spouse/S.O. Narrative Narrative: Patient is a 23-year-old female with past medical history of anxiety and depression as well as nonepileptic seizure and migraine headache. She states that today she is just felt off. She cannot describe her sensation any further and denies fevers chills nausea vomiting diarrhea dysuria or concern for . She states that her medications have not changed and she has been taking them as directed. However as she just feels off and has concern that there may be some underlying process causing this she comes in for evaluation [facility] Medical History (Updated 02/21/24 @ 03:[address] Cong Noriega DO) PONV (postoperative nausea and vomiting) Post concussion syndrome Dietary restriction Leg cramps Chest pain GERD (gastroesophageal reflux disease) Migraines Seizures Allergic reaction ( 10/22/22) Wears glasses Back pain Injury of head and neck Blackout History of hiatal hernia Gastric reflux Non-smoker Hip abductor tendonitis Depression Anxiety Home Medications ???Medication ???Instructions ???Recorded ???Last Taken ???Type ibuprofen 200 mg tablet 600 - 800 mg PO Q6H PRN PRN Pain 11/03/18 Unknown History ondansetron 4 mg disintegrating 4 mg PO Q8H PRN nausea and 07/19/22 Unknown Rx tablet vomiting #10 tabs fluoxetine 40 mg capsule (Prozac) 40 mg PO DAILY 09/14/22 Unknown History gabapentin 100 mg capsule 100 mg PO QHS 09/14/22 Unknown History hydroxyzine pamoate 25 mg capsule 30 mg PO PRN PRN Anxiety 09/14/22 Unknown History rimegepant 75 mg disintegrating 75 mg PO PRN PRN MIGRAINES 09/14/22 Unknown History tablet (Nurtec ODT) acetaminophen 500 mg tablet 1,000 mg (2 x 500 mg) PO Q6H PRN 08/11/23 Unknown Rx (Tylenol Extra Strength) pain #20 tabs buspirone 30 mg tablet 30 mg PO DAILY 10/20/23 Unknown History meclizine 25 mg tablet 25 mg PO DAILY PRN dizziness 10/20/23 Unknown History pantoprazole 40 mg tablet,delayed 40 mg PO DAILY #30 tabs 12/22/23 Unknown Rx release (Protonix) diphenhydramine HCl 25 mg tablet 50 mg PO QHS 02/20/24 Unknown History (Oorzf-X-Dopl) levonorgestrel 0.15 mg-ethinyl 1 tab PO DAILY 02/20/24 Unknown History estradiol 30 mcg tablets,3 mos pack(91) (Jolessa) topiramate 100 mg tablet 100 mg PO BID 02/20/24 Unknown History Allergy/AdvReac Type Severity Reaction Status Date / Time gluten Allergy Diarrhea Verified 02/20/24 21:48 milk (dairy) AdvReac Mild INDEGESTION Verified 02/20/24 21:48 azithromycin AdvReac Diarrhea Verified 02/20/24 21:48 Family History Mother Diabetes Cancer skin Thyroid disorder Father Diabetes Hypertension Surgical History History of wisdom tooth extraction History of cholecystectomy S/P cholecystectomy History of surgery on lower extremity Hx of tonsillectomy Social History Smoking Status: Never smoker alcohol intake: never ROS ROS ED Constitutional Constitutional ED: Denies chills or fever(s) Eyes Eyes: Denies blurry vision or change in vision ENT ENT ED: Denies rhinorrhea or sore throat Cardiovascular Cardiovascular: Denies chest pain or palpitations Respiratory/Chest Respiratory/Chest: Denies cough or dyspnea Gastrointestinal Gastrointestinal: Denies abdominal pain, diarrhea, nausea or vomiting Genitourinary Genitourinary ED: Denies dysuria Musculoskeletal Musculoskeletal: Denies myalgias Integumentary Denies rash Neurologic Neurologic: Denies headache(s), paresthesias or weakness Hematologic/Lymphatic Hematologic/Lymphatic: Denies easy bleeding or easy bruising EXAM Physical Exam Const Vital Signs: 02/20/24 21:45 02/20/24 21:55 Temperature 97.2 F L Temperature Source Temporal Pulse Rate 78 Respiratory Rate 18 Respiratory Effort Normal Respiratory Pattern Normal Blood Pressure 116/76 Blood Pressure Mean 89 Pulse Ox 98 Oxygen Delivery Method Room Air Positive well nourished, well developed and obese General Appearance ED: well developed; Negative for pallor Nutritional Appearance: obese HEENT Reports moist mucous membranes HEENT Narrative: No tongue or lip swelling no oral lesions no airway edema or compromise Eyes PERRL and EOMs intact bilaterally General Eye ED: Negative for pa (more content not included)... Normal [facility] Magnesiumon 02-20-2024 Magnesium [Mass/Vol] 2.0 mg/dL Normal 1.6-2.6 [facility] Comment on above: Result Comment: Mode rate Hemolysis, Result may be falsely increased. Performed By: #### L 500.2500, L100.0100, L501.5200 #### [facility] [address] [place], [place], [id number] ,Urineon 02-20-2024 Beta HCG ( test) Ql (U) Negative Normal [facility] Comment on above: Order Comment: CLEAN CATCH Result Comment: Very dilute urine specimens, as indicated by a low specific gravity, may not contain account development representative levels of hCG. If is still suspected, a first morning urine specimen should be collected 48 hours later and tested. Performed By: #### L 400.7600, L400.0001 #### [facility] [address] [place], [place], [id number] Urinalysis, Completeon 02-19 BACTERIA 3+ /hpf Normal None Seen [facility] Comment on above: Order Comment: CLEAN CATCH Performed By: #### L 400.7600, L400.0001 #### [facility] [address] [place], [address] CA OX CRYSTAL RARE Normal [facility] Comment on above: Order Comment: CLEAN CATCH Performed By: #### L 400.7600, L400.0001 #### [facility] [address] [place], [address] EPI,SQUAMOUS 5-10 SEEN Normal 5-10 [facility] Comment on above: Order Comment: CLEAN CATCH Performed By: #### L 400.7600, L400.0001 #### [facility] [address] [place], [address] RBC 0-5 SEEN Normal 0-5 [facility] Comment on above: Order Comment: CLEAN CATCH Performed By: #### L 400.7600, L400.0001 #### [facility] [address] [place], [address] WBC 5-10 SEEN Normal 0-5 [facility] Comment on above: Order Comment: CLEAN CATCH Performed By: #### L 400.7600, L400.0001 #### [facility] [address] [place], [address] Mucus Ql (Urine sed) 0 SEEN Normal [facility] Comment on above: Order Comment: CLEAN CATCH Performed By: #### L 400.7600, L400.0001 #### [facility] [address] [place], [address] Celiac Disease Profileon ENDOMYSIAL IGA Negative Normal Negative [facility] Comment on above: Performed By: #### L 501.6710, L3410.2400, L101.9900 ####[facility] [address] [place], [address] IMMUNOGLOB A QN 89 mg/dL Normal 87-352 [facility] Comment on above: Result Comment: Perf ormed at: [facility] [address] [id number] Transcription Typist: Brendon Mars PhD, Phone: [phone] Performed By: #### L 501.6710, L3410.2400, L101.9900 ####[facility] [address] [place], [place], [id number] tTG IGA <2 Normal 0-3 [facility] Comment on above: Result Comment: Nega tive 0 - 3 Weak Positive 4 - 10 Positive >10 Tissue Transglutaminase (tTG) has been identified as the endomysial antigen. Studies have demonstr- ated that endomysial IgA antibodies have over 99% specificity for gluten sensitive enteropathy. Performed By: #### L 501.6710, L3410.2400, L101.9900 ####[facility] [address] [facility] [place], [place], [id number] CRPon 01-10-2024 C-REACTIVE PROT 16.00 mg/L High 0.0-3.0 [facility] Comment on above: Result Comment: C-Re active Protein (CRP) provides useful information for the diagnosis, therapy and monitoring of inflammatory processes and associated diseases. For the evaluation of Relative Risk for Cardiovascular Disease, a High Sensitivity CRP (HSCRP) should be ordered. Performed By: #### L 501.6710, L3410.2400, L101.9900 ####[facility] [address] [place], [place], [phone] EGD Reporton 01-10-2024 EGD Report [facility] Medical Records Department [address] [place] [address] EGD Report MR#: [id number] Acct: [id number] Name: DONNIE MALDONADO Rep #: [id number] : 2000 23 From: Cali Kim DO PCP: Dr. Fani Baez MD Status:[facility] Patient Name: Donnie Maldonado Procedure Date: 01/10/2024 2:51 PM Date of : 2000 Age: 23 Procedure: Upper GI endoscopy Indications: Epigastric abdominal pain, Heartburn Providers: Cali Kim DO Referring MD: Fani Baez Medicines: Monitored Anesthesia Care Patient Profile: This is a 23 year old female. Refer to note in patient chart for documentation of history and physical. Patient has symptoms of chronic epigastric abdominal pain. Complications: No immediate complications. Procedure: Pre-Anesthesia Assessment: - Prior to the procedure, a History and Physical was performed, and patient medications and allergies were reviewed. The patient is competent. The risks and benefits of the procedure and the sedation options and risks were discussed with the patient. All questions were answered and informed consent was obtained. Patient identification and proposed procedure were verified by the physician in the pre-procedure area. Mental Status Examination: alert and oriented. Airway Examination: normal oropharyngeal airway and neck mobility. Respiratory Examination: clear to auscultation. CV Examination: normal. Prophylactic Antibiotics: The patient does not require prophylactic antibiotics. Prior Anticoagulants: The patient has taken no anticoagulant or antiplatelet agents. ASA Grade Assessment: II - A patient with mild systemic disease. After reviewing the risks and benefits, the patient was deemed in satisfactory condition to undergo the procedure. The anesthesia plan was to use monitored anesthesia care (MAC). Immediately prior to administration of medications, the patient was re-assessed for adequacy to receive sedatives. The heart rate, respiratory rate, oxygen saturations, blood pressure, adequacy of pulmonary ventilation, and response to care were monitored throughout the procedure. The physical status of the patient was re-assessed after the procedure. After obtaining informed consent, the endoscope was passed under direct vision. Throughout the procedure, the patient's blood pressure, pulse, and oxygen saturations were monitored continuously. The Endoscope was introduced through the mouth, and advanced to the second part of duodenum. The upper GI endoscopy was accomplished without difficulty. The patient tolerated the procedure well. Scope In: 2:55:02 PM Scope Out: 2:58:34 PM Total Procedure Duration Time 0 hours 3 minutes 32 seconds Findings: LA Grade A (one or more mucosal breaks less than 5 mm, not extending between tops of 2 mucosal folds) esophagitis with no bleeding was found 36 to 37 cm from the incisors. Biopsies were taken with a cold forceps for histology. Verification of patient identification for the specimen was done. Estimated blood loss was minimal. Patchy mildly erythematous mucosa without bleeding was found in the gastric body. Biopsies were taken with a cold forceps for histology. Verification of patient identification for the specimen was done. Estimated blood loss was minimal. Biopsies were taken with a cold forceps for Helicobacter pylori testing. Verification of patient identification for the specimen was done. Estimated blood loss was minimal. Patchy mildly erythematous mucosa without active bleeding and with no stigmata of bleeding was found in the first portion of the duodenum. Biopsies were taken with a cold forceps for histology. Verification of patient identification for the specimen was done. Estimated blood loss was minimal. Impression: - LA Grade A reflux esophagitis with no bleeding. Biopsied. - Erythematous mucosa in the gastric body. Biopsied. - Erythematous duodenopathy. Biopsied. Recommendation: - Discharge patient to home. - Resume previous diet. - Continue present medications. - Await pathology results. Procedure Code(s): --- Professional --- 17211, Esophagogastroduodenoscopy, flexible, transoral; with biopsy, single or multiple CPT copyright 2021 [employer]. All rights reserved. The codes documented in this report are preliminary and upon livestock auctioneer review may be revised to meet current compliance requirements. Cali Kim DO 01/10/2024 3:03:49 PM This report has been signed electronically. Number of Addenda: 0 Note Initiated On: 01/10/2024 2:51 PM 01/10/24 1504 Date Cali López Signature: Date (if indicated) CC: Dr. Fani Baez MD; Cali Kim DO Date Dictated: 01/10/24 145 (more content not included)... Normal [facility] Erythrocyte Sed Rateon 01-09 SED RATE 7 mm/hr Normal 0-30 [facility] Comment on above: Performed By: #### L 501.6710, L3410.2400, L101.9900 ####[facility] [address] [place], [place], [phone] H Pylori (initial)on 024 H Pylori (initial) -- Patient Age/Sex Location Account Attending Physician -- DONNIE MALDONADO / EN [id number] Cali Kim DO -- Specimen: [id number] Received: 01/11/24 Status: CHERIE Garza Num: [id number] Spec Type: IMMUNO Subm Dr: Cali Kim, PHYSICIAN INSTITUTION [place] [id number] SPECIMEN INFORMATION: Tissue Source: B- Gastric body biopsy Clinical Info: Celiac disease, eosinophilic esophagitis, gastrointestinal food sensitivity, abdominal pain Specimen Number: [id number] CPT code: 92364 METHODOLOGY: Deparaffinized sections of prefer/formalin-fixed tissue or PAP/DQ stained slides are incubated with monoclonal/polyclonal antibodies/oligonucleotide probes. Localization is made via biotin free immunoperoxidase method. Appropriate controls are performed and reacted as expected. Results on target cell population are indicated in the following table: RESULTS: ANTIBODY / CLONE RESULT Block B H Pylori (polyclonal) negative These tests were developed and their performance characteristics determined by [facility]. They may not have been cleared or approved by the U.S. Food and Drug Administration. The FDA has determined that such clearance or approval is not necessary. The above immunohistochemical/dualISH markers are ordered and reviewed by the Pathologist. INTERPRETATION: B. Gastric body, biopsy: Negative for Helicobacter pylori organisms. AM/mr 01/12/2024 Signed (signature on file) Dr. Oumar Rondon, 01/12/24 1228 -- Normal [facility] Comment on above: Performed By: #### P H.PYLORI ####[facility] [address] [place], [address] ,Urineon 01-10-2024 Beta HCG ( test) Ql (U) Negative Normal [facility] Comment on above: Result Comment: Very dilute urine specimens, as indicated by a low specific gravity, may not contain account development representative levels of hCG. If is still suspected, a first morning urine specimen should be collected 48 hours later and tested. Performed By: #### L 400.7600 ####[facility] [address] [place], [address] Special Stain Group Ion 05-2 Special Stain Group I -- Patient Age/Sex Location Account Attending Physician -- DONNIE MALDONADO EN [id number] Cali Kim DO -- Specimen: [id number] Received: 01/10/24 Status: CHERIE Garza Num: [id number] Spec Type: EGD BIOPSY Subm Dr: Cali Kim DO HEADER OPERATION: EGD with biopsies PRE-OP DIAGNOSIS: Celiac disease, eosinophilic esophagitis, gastrointestinal food sensitivity, abdominal pain TISSUE SUBMITTED: A- Duodenum biopsy, B- Gastric body biopsy, C- Distal esophagus biopsy -- MICROSCOPIC DIAGNOSIS A. Duodenum, biopsy: Minimal non-specific chronic inflammation. B. Gastric body, biopsy: Chronic gastritis. C. Distal esophagus, biopsy: Gastroesophageal junctional mucosa with mild chronic inflammation. Reflux esophagitis. No evidence of goblet cell metaplasia. See comment. / 01/12/2024 COMMENT B. The results of immunohistochemistry for Helicobacter pylori will be reported separately ([id number]). C. Alcian blue/PAS stain with matched control supports the above diagnosis. MICROSCOPIC DESCRIPTION Slides are reviewed. GROSS DESCRIPTION A. Received in fixative is one container labeled with the patient's name and designated Duodenum biopsy. The specimen consists of multiple irregular fragments of light dye soft tissue that in aggregate measure 1.0 x 0.2 x 0.1 cm. The specimen is totally submitted in one cassette. B. Received in fixative is one container labeled with the patient's name and designated gastric body biopsy. The specimen consists of one irregular fragment of light dye soft tissue that measures 0.6 x 0.5 x 0.1 cm. The specimen is totally submitted in one cassette. C. Received in fixative is one container labeled with the patient's name and designated Distal esophagus biopsy. The specimen consists of multiple irregular fragments of light dye soft tissue that in aggregate measure 1.0 x 0.3 x 0.1 cm. The specimen is totally submitted in one cassette. / 01/11/2024 TC:3 CPT:32293g8,79712 -- Patient Age/Sex Location Account Attending Physician -- DONNIE MALDONADO LSAVA [id number] Cali Kim DO -- Signed (signature on file) Dr. Oumar Rondon, 01/12/24 1132 -- Normal [facility] Comment on above: Performed By: #### P SSI #### [facility] [address] [place], [place] [address]all [facility] [place], [address] MR Brain WO contraston 01-03 IMPRESSION: Mild paranasal sinus inflammatory changes. Otherwise normal study. Operating Room Scheduler: PSCB Transcribe Date/Time: Jan 04 2024 12:18P Dictated by : MATTHEW MONIQUE MD This examination was interpreted and the report reviewed and electronically signed by: MATTHEW MONIQUE MD on Jan 04 2024 12:22PM [facility] RAD[facility] * * *Final Report* * * DATE OF EXAM: Jan 04 2024 10:48AM [facility] 0294 - MRI BRAIN WO IVCON / PROCEDURE REASON: R55 SYNCOPE AND COLLAPSE * * * * Physician Interpretation * * * * EXAMINATION: MRI BRAIN WO IVCON CLINICAL HISTORY: Recurrent syncopal episodes. Technique: Coronal and axial CHINYERE-FLAIR, coronal CHINYERE-T2, axial diffusion, and high resolution sagittal gradient echo volume acquisition of the brain with coronal planar reconstructions. Comparison: None. RESULT: Acute Change: There is no evidence of an acute intracranial process. Hemorrhage: No clear evidence of prior parenchymal hemorrhage within the constraints of the acquisition. Mass Lesion/ Mass Effect: No evidence of an intracranial mass or extra-axial fluid collection. No significant mass effect. Hippocampi: No significant asymmetry in size, configuration or signal intensity characteristics of the mesial temporal structures. Chronic Change: No evidence of focal or regional parenchymal volume loss otherwise. The white matter is within normal limits of signal intensity for the patient's chronologic age. Parenchyma: No significant generalized parenchymal volume loss for age. The brain parenchyma is otherwise within normal limits of signal intensity and morphology. Developmental: No distinct developmental abnormality is seen. Ventricles: Normal caliber and configuration for age. Other: Incidental note is made of mild mucosal thickening in the left maxillary and right sphenoid sinuses. [facility] RADIOLOGY Provider, [facility] [place] - 01/04/2024 * * *Final Report* * * DATE OF EXAM: Jan 04 2024 10:48AM [facility] 0294 - MRI BRAIN WO IVCON / PROCEDURE REASON: R55 SYNCOPE AND COLLAPSE * * * * Physician Interpretation * * * * EXAMINATION: MRI BRAIN WO IVCON CLINICAL HISTORY: Recurrent syncopal episodes. Technique: Coronal and axial CHINYERE-FLAIR, coronal CHINYERE-T2, axial diffusion, and high resolution sagittal gradient echo volume acquisition of the brain with coronal planar reconstructions. Comparison: None. RESULT: Acute Change: There is no evidence of an acute intracranial process. Hemorrhage: No clear evidence of prior parenchymal hemorrhage within the constraints of the acquisition. Mass Lesion/ Mass Effect: No evidence of an intracranial mass or extra-axial fluid collection. No significant mass effect. Hippocampi: No significant asymmetry in size, configuration or signal intensity characteristics of the mesial temporal structures. Chronic Change: No evidence of focal or regional parenchymal volume loss otherwise. The white matter is within normal limits of signal intensity for the patient's chronologic age. Parenchyma: No significant generalized parenchymal volume loss for age. The brain parenchyma is otherwise within normal limits of signal intensity and morphology. Developmental: No distinct developmental abnormality is seen. Ventricles: Normal caliber and configuration for age. Other: Incidental note is made of mild mucosal thickening in the left maxillary and right sphenoid sinuses. IMPRESSION IMPRESSION: Mild paranasal sinus inflammatory changes. Otherwise normal study. Operating Room Scheduler: AMAYA Transcribe Date/Time: Jan 04 2024 12:18P Dictated by : MATTHEW MONIQUE MD This examination was interpreted and the report reviewed and electronically signed by: MATTHEW MONIQUE MD on Jan 04 2024 12:22PM EST [facility] Radiology Study observation (narrative) [facility] MR Brain WO contrastOrdered By: [facility] Provider on 01-04-2024 [facility] MRI BRAIN WO IVCONon 024 MRI BRAIN WO IVCON * * *Final Report* * * DATE OF EXAM: Jan 04 2024 10:48AM [facility] 0294 - MRI BRAIN WO IVCON / PROCEDURE REASON: R55 SYNCOPE AND COLLAPSE * * * * Physician Interpretation * * * * EXAMINATION: MRI BRAIN WO IVCON CLINICAL HISTORY: Recurrent syncopal episodes. Technique: Coronal and axial CHINYERE-FLAIR, coronal CHINYERE-T2, axial diffusion, and high resolution sagittal gradient echo volume acquisition of the brain with coronal planar reconstructions. Comparison: None. RESULT: Acute Change: There is no evidence of an acute intracranial process. Hemorrhage: No clear evidence of prior parenchymal hemorrhage within the constraints of the acquisition. Mass Lesion/ Mass Effect: No evidence of an intracranial mass or extra-axial fluid collection. No significant mass effect. Hippocampi: No significant asymmetry in size, configuration or signal intensity characteristics of the mesial temporal structures. Chronic Change: No evidence of focal or regional parenchymal volume loss otherwise. The white matter is within normal limits of signal intensity for the patient's chronologic age. Parenchyma: No significant generalized parenchymal volume loss for age. The brain parenchyma is otherwise within normal limits of signal intensity and morphology. Developmental: No distinct developmental abnormality is seen. Ventricles: Normal caliber and configuration for age. Other: Incidental note is made of mild mucosal thickening in the left maxillary and right sphenoid sinuses. IMPRESSION: Mild paranasal sinus inflammatory changes. Otherwise normal study. Operating Room Scheduler: PSCB Transcribe Date/Time: Jan 04 2024 12:18P Dictated by : MATTHEW MONIQUE MD This examination was interpreted and the report reviewed and electronically signed by: MATTHEW MONIQUE MD on Jan 04 2024 12:22PM EST [id number] [facility] Emergency Department Summary on 01-01-2024 Emergency Department Summary [facility] Medical Records Department [address] [place] [address] Emergency Department Summary 01/01/24 MR#: [id number] Acct: [id number] Name: DONNIE MALDONADO Rep #: [id number] : 2000 23 From: Cong Noriega DO PCP: Dr. Fani Baez MD Status:DEP ER Location: ED [facility] History of Present Illness Chief Complaint: Headache Informant: patient and spouse/S.O. Narrative Narrative: Patient is a 23-year-old female with past medical history nonepileptic seizure disorder. She states was seen on December 21 secondary to a nonepileptic seizure which caused her to strike her head and at that time was diagnosed with concussion. She states has been no repeat trauma and she denies any sick symptoms but states she has had persistent headache as well as blurry vision. She has an MRI scheduled for a few days from now but because of the persistent headache comes in for evaluation. 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 Cong Noriega DO) GERD (gastroesophageal reflux disease) Migraines Seizures Allergic reaction ( 10/22/22) Wears glasses Back pain Injury of head and neck Blackout History of hiatal hernia Gastric reflux Non-smoker Hip abductor tendonitis Depression Anxiety Home Medications ???Medication ???Instructions ???Recorded ???Last Taken ???Type Desogestrel-Ethinyl Estradiol 1 ea PO DAILY 11/03/18 Unknown History [Apri 28 Day Tablet] acetaminophen 500 mg tablet 500 - 1,000 mg PO Q6H PRN PRN 11/03/18 Unknown History Headache keaxgwv-ezzwpvbwvjidb-esagnhme 250 1 ea PO BID PRN Headache 11/03/18 Unknown History mg-250 mg-65 mg tablet (Headache Relief (VSM-oxhyjudttyxs-lcesddmx)) buspirone 15 mg tablet 15 mg PO BID Anxiety 11/03/18 Unknown History ibuprofen 200 mg tablet 600 - 800 mg PO Q6H PRN PRN Pain 11/03/18 Unknown History topiramate 50 mg tablet 100 mg PO BID 11/03/18 Unknown History ondansetron 4 mg disintegrating 4 mg PO Q8H PRN nausea and 07/19/22 Unknown Rx tablet vomiting #10 tabs dextroamphetamine-amphetamine ER 20 mg PO DAILY 09/14/22 Unknown History 20 mg 24hr capsule,extend release fluoxetine 40 mg capsule (Prozac) 40 mg PO DAILY 09/14/22 Unknown History gabapentin 100 mg capsule 100 mg PO QHS 09/14/22 Unknown History hydroxyzine pamoate 25 mg capsule 25 mg PO PRN PRN Anxiety 09/14/22 Unknown History rimegepant 75 mg disintegrating 75 mg PO PRN PRN MIGRAINES 09/14/22 Unknown History tablet (Nurtec ODT) acetaminophen 500 mg tablet 1,000 mg (2 x 500 mg) PO Q6H PRN 08/11/23 Unknown Rx (Tylenol Extra Strength) pain #20 tabs ibuprofen 600 mg tablet 600 mg PO Q8H PRN PRN pain #20 08/11/23 Unknown Rx TABLETS ondansetron 4 mg disintegrating 4 mg PO Q8H PRN PRN Nausea #14 tabs 08/11/23 Unknown Rx tablet buspirone 30 mg tablet 30 mg PO DAILY 10/20/23 Unknown History meclizine 25 mg tablet 25 mg PO DAILY PRN dizziness 10/20/23 Unknown History ondansetron 4 mg disintegrating 4 mg PO Q8H PRN PRN Nausea #10 tabs 12/22/23 Unknown Rx tablet pantoprazole 40 mg tablet,delayed 40 mg PO DAILY #30 tabs 12/22/23 Unknown Rx release (Protonix) Allergy/AdvReac Type Severity Reaction Status Date / Time gluten Allergy Diarrhea Verified 01/01/24 21:07 azithromycin AdvReac Diarrhea Verified 01/01/24 21:07 Family History Mother Diabetes Cancer skin Thyroid disorder Father Diabetes Hypertension Surgical History History of cholecystectomy History of surgery on lower extremity Hx of tonsillectomy S/P cholecystectomy Social History Smoking Status: Never smoker alcohol intake: never ROS ROS ED Constitutional Constitutional ED: Denies chills or fever(s) Eyes Eyes: Reports blurry vision ENT ENT ED: Denies sore throat Cardiovascular Cardiovascular: Denies chest pain Respiratory/Chest Respiratory/Chest: Denies cough or dyspnea Gastrointestinal Gastrointestinal: Reports nausea; Denies abdominal pain, diarrhea or vomiting Genitourinary Genitourinary ED: Denies dysuria Musculoskeletal Musculoskeletal: Denies myalgias or neck pain Integumentary Denies rash Neurologic Neurologic: Reports headache(s) Hematologic/Lymphatic Hematologic/Lymphatic: Denies easy bleeding or easy bruising EXAM Physical Exam Const Vital Signs: 01/01/24 21:05 01/01/24 23:05 01/02/24 00:06 Temperature 98 F 97.5 F L Temperature Source Temporal Pulse Rate 71 82 56 L Respiratory Rate 16 16 16 Blood Pressure 123/8 (more content not included)... Normal [facility] Basic Metabolic Profile (BMP )on 12-22-2023 BUN/CRE 17.8 RATIO Normal 10-20 [facility] Comment on above: Performed By: #### L 100.0100, L700.6800, L500.2500 ####[facility] [address] [place], [address] CA,Total 8.3 mg/dL Low 8.5-10.1 [facility] Comment on above: Performed By: #### L 100.0100, L700.6800, L500.2500 ####[facility] [address] [place], [address] Chloride [Moles/Vol] 114 mmol/L High 98-107 [facility] Comment on above: Performed By: #### L 100.0100, L700.6800, L500.2500 ####[facility] [address] [place], [address] CO2 [Moles/Vol] 21.0 mmol/L Normal 21.0-32.0 [facility] Comment on above: Performed By: #### L 100.0100, L700.6800, L500.2500 ####[facility] [address] [place], [address] Creatinine [Mass/Vol] 0.68 mg/dL Normal 0.55-1.02 [facility] Comment on above: Result Comment: The validity of the calculated GFR GFRAA in patients over 70 years has not been determined. Clinical correlation is essential. Performed By: #### L 100.0100, L700.6800, L500.2500 ####[facility] [address] [place], [address] ECRCL 167.98 ml/min Normal [facility] Comment on above: Performed By: #### L 100.0100, L700.6800, L500.2500 ####[facility] [address] [place], [address] EST GFR - AA 136 mL/min Normal >60 [facility] Comment on above: Result Comment: Afri can Nigerien GFR Calc Performed By: #### L 100.0100, L700.6800, L500.2500 ####[facility] [address] [place], [address] GAP 6 Normal 5-15 [facility] Comment on above: Performed By: #### L 100.0100, L700.6800, L500.2500 ####[facility] [address] [place], [address] GFR/1.73 sq M.predicted among non-blacks MDRD (S/P/Bld) [Vol rate/Area] 112 mL/min/{1.73_m2} Normal >60 [facility] Comment on above: Result Comment: Non- GFR Calc Performed By: #### L 100.0100, L700.6800, L500.2500 ####[facility] [address] [place], [address] Glucose [Mass/Vol] 116 mg/dL High 74-106 [facility] Comment on above: Result Comment: Fast ing Glucose result from 100 to 125 mg/dL suggests IMPAIRED HOMEOSTASIS per A.D.A. criteria. Performed By: #### L 100.0100, L700.6800, L500.2500 ####[facility] [address] [place], [address] Potassium [Moles/Vol] 3.5 mmol/L Normal 3.5-5.1 [facility] Comment on above: Performed By: #### L 100.0100, L700.6800, L500.2500 ####[facility] [address] [place], [address] Sodium [Moles/Vol] 141 mmol/L Normal 136-145 [facility] Comment on above: Performed By: #### L 100.0100, L700.6800, L500.2500 ####[facility] [address] [place], [address] Urea nitrogen [Mass/Vol] 12 mg/dL Normal 7-18 [facility] Comment on above: Performed By: #### L 100.0100, L700.6800, L500.2500 ####[facility] [address] [place], [address] Brain/Head without Contrasto n 12-22-2023 Brain/Head without Contrast [facility] Imaging Services [address] [place] [address] Brain/Head without Contrast MR#: [id number] Acct: [id number] Name: DONNIE MALDONADO Rep #: [id number] : 2000 F 23 From: Gulshan cox MD PCP: Dr. Fani Baez MD Status: REG ER Study: Brain/Head without Contrast Date of Exam: 05/08 Exam# [id number] Ordering Dr: Flor Salguero MD -[id number] STUDY: CT BRAIN WITHOUT CONTRAST REASON FOR EXAM: Female, 23 years old. Head injury RADIATION DOSAGE (If Supplied By Facility): CTDIvol = ( 47.06 ) mGy, DLP = ( 872.68 ) mGycm TECHNIQUE: Transaxial CT imaging of the brain was performed without administration of intravenous contrast material. Individualized dose optimization techniques were used for this CT. COMPARISON: No relevant priors. FINDINGS: Normal soft tissue structures. Normal calvarium. Normal size ventricles and extra-axial spaces for the patient''s age. Normal white matter tracts of the cerebral hemispheres. Normal basal ganglia and thalami. Normal brainstem. Normal cerebellum. There is no intracranial hemorrhage. There are no findings of an acute ischemic infarction. Partial opacification of the right ethmoid sinus and right sphenoid sinus. CT/Brain/Head without Contrast IMPRESSION: Normal unenhanced CT scan of the brain. Partial opacification of the right ethmoid sinus and the right sphenoid sinus. Electronically Signed: Gulshan Leal MD at 12:21 EDT Reading Location ID and State: [address] [place] [address] , Service support , CC: Dr. Flor Salguero MD; Dr. Fani Baez MD Operating Room Scheduler: Signed Normal [facility] CBC W/Diff, Automatedon 05-0 Absolute Lymph 2.60 X10 3/uL Normal 0.83-4.51 [facility] Comment on above: Performed By: #### L 100.0100, L700.6800, L500.2500 #### [facility] Laboratory [address] [place], [address] Absolute Neut 5.6 X10 3/uL Normal 2.0-7.7 [facility] Comment on above: Performed By: #### L 100.0100, L700.6800, L500.2500 #### [facility] Laboratory [address] [place], [address] Basophils/100 WBC (Bld) 0.7 % Normal 0-1 [facility] Comment on above: Performed By: #### L 100.0100, L700.6800, L500.2500 #### [facility] Laboratory [address] [place], [address] Eosinophils/100 WBC (Bld) 8.1 % High 0-5 [facility] Comment on above: Performed By: #### L 100.0100, L700.6800, L500.2500 #### [facility] Laboratory [address] [place], [address] Erythrocyte distribution width (RBC) [Ratio] 13.4 % Normal 11.6-14.6 [facility] Comment on above: Performed By: #### L 100.0100, L700.6800, L500.2500 #### [facility] [address] [place], [address] Hematocrit (Bld) [Volume fraction] 37.6 % Normal 37-47 [facility] Comment on above: Performed By: #### L 100.0100, L700.6800, L500.2500 #### [facility] [address] [place], [address] Hemoglobin (Bld) [Mass/Vol] 12.4 g/dL Normal 12.0-15.0 [facility] Comment on above: Performed By: #### L 100.0100, L700.6800, L500.2500 #### [facility] [address] [place], [address] IG% 0.100 Normal 0.0-0.9 [facility] Comment on above: Result Comment: IG% - Immature Granulocytes (promyelocytes, myelocytes and metamyelocytes) > 1% indicates that a LEFT SHIFT is Present. Performed By: #### L 100.0100, L700.6800, L500.2500 #### [facility] [address] [place], [address] Lymphocytes/100 WBC (Bld) 27.5 % Normal 19-41 [facility] Comment on above: Performed By: #### L 100.0100, L700.6800, L500.2500 #### [facility] Laboratory [address] [place], [address] MCH (RBC) [Entitic mass] 29.7 pg Normal 27.0-32.0 [facility] Comment on above: Performed By: #### L 100.0100, L700.6800, L500.2500 #### [facility] Laboratory [address] [place], [address] MCHC (RBC) [Mass/Vol] 33.0 g/dL Normal 32-36 [facility] Comment on above: Performed By: #### L 100.0100, L700.6800, L500.2500 #### [facility] [address] [place], [address] MCV (RBC) [Entitic vol] 90.2 fL Normal 81-99 [facility] Comment on above: Performed By: #### L 100.0100, L700.6800, L500.2500 #### [facility] [address] [place], [address] Monocytes/100 WBC (Bld) 4.4 % Normal 0-10 [facility] Comment on above: Performed By: #### L 100.0100, L700.6800, L500.2500 #### [facility] [address] [place], [address] Neutrophils/100 WBC (Bld) 59.2 % Normal 47-70 [facility] Comment on above: Performed By: #### L 100.0100, L700.6800, L500.2500 #### [facility] [address] [place], [address] Nucleated RBC (Bld) [#/Vol] 0 10*3/uL Normal 0-5 [facility] Comment on above: Performed By: #### L 100.0100, L700.6800, L500.2500 #### [facility] Laboratory [address] [place], [address] Platelet mean volume (Bld) [Entitic vol] 8.3 fL Normal 6.2-12.0 [facility] Comment on above: Performed By: #### L 100.0100, L700.6800, L500.2500 #### [facility] Laboratory [address] [place], [address] Platelets (Bld) [#/Vol] 343 10*3/uL Normal 150-450 [facility] Comment on above: Performed By: #### L 100.0100, L700.6800, L500.2500 #### [facility] [address] [place], [address] RBC (Bld) [#/Vol] 4.17 10*6/uL Low 4.2-5.4 [facility] Comment on above: Performed By: #### L 100.0100, L700.6800, L500.2500 #### [facility] Laboratory [address] [place], [address] RDW SD 44.1 fl High 35.1-43.9 [facility] Comment on above: Performed By: #### L 100.0100, L700.6800, L500.2500 #### [facility] Laboratory [address] [place], [address] WBC (Bld) [#/Vol] 9.5 10*3/uL Normal 4.4-11.0 [facility] Comment on above: Performed By: #### L 100.0100, L700.6800, L500.2500 #### [facility] Laboratory [address] [place], [address] Emergency Department Summary on 12-22-2023 Emergency Department Summary [facility] Medical Records Department [address] [place] [address] Emergency Department Summary 12/22/23 MR#: [id number] Acct: [id number] Name: DONNIE MALDONADO Rep #: [id number] : 2000 23 From: Flor Salguero MD PCP: Dr. Fani Baez MD Status:DEP ER Location: ED HPI History of Present Illness Chief Complaint: Head Injury Informant: patient and parent Narrative Narrative: Patient presents status post head injury. 2 days ago she had a nonepileptic seizure and fell down 4 steps. She did hit her head on a metal cabinet. Patient reports that she has been more confused since then and today had trouble remembering her Social Security number. She has had some intermittent nausea. [facility] Medical History (Updated 12/22/23 @ 12:[address] Flor Salguero MD) Allergic reaction ( 10/22/22) Anxiety Back pain Blackout Depression Gastric reflux GERD (gastroesophageal reflux disease) Hip abductor tendonitis History of hiatal hernia Injury of head and neck Migraines Non-smoker Seizures Wears glasses Home Medications Desogestrel-Ethinyl Estradiol [Apri 28 Day Tablet] 1 ea PO DAILY 11/03/18 [History Last Taken Unknown] acetaminophen 500 mg tablet 500 - 1,000 mg PO Q6H PRN PRN Headache 11/03/18 [History Last Taken Unknown] lhzuhqy-lcwirtwmohals-wrzwmwgw 250 mg-250 mg-65 mg tablet (Headache Relief (ECQ-gcmgvnvkxwsi-zsfbzkal)) 1 ea PO BID PRN Headache 11/03/18 [History Last Taken Unknown] buspirone 15 mg tablet 15 mg PO BID Anxiety 11/03/18 [History Last Taken Unknown] ibuprofen 200 mg tablet 600 - 800 mg PO Q6H PRN PRN Pain 11/03/18 [History Last Taken Unknown] topiramate 50 mg tablet 100 mg PO BID 11/03/18 [History Last Taken Unknown] ondansetron 4 mg disintegrating tablet 4 mg PO Q8H PRN nausea and vomiting #10 tabs 07/19/22 [Rx Last Taken Unknown] dextroamphetamine-amphetamine ER 20 mg 24hr capsule,extend release 20 mg PO DAILY 09/14/22 [History Last Taken Unknown] fluoxetine 40 mg capsule (Prozac) 40 mg PO DAILY 09/14/22 [History Last Taken Unknown] gabapentin 100 mg capsule 100 mg PO QHS 09/14/22 [History Last Taken Unknown] hydroxyzine pamoate 25 mg capsule 25 mg PO PRN PRN Anxiety 09/14/22 [History Last Taken Unknown] rimegepant 75 mg disintegrating tablet (Nurtec ODT) 75 mg PO PRN PRN MIGRAINES 09/14/22 [History Last Taken Unknown] acetaminophen 500 mg tablet (Tylenol Extra Strength) 1,000 mg (2 x 500 mg) PO Q6H PRN pain #20 tabs 08/11/23 [Rx Last Taken Unknown] ibuprofen 600 mg tablet 600 mg PO Q8H PRN PRN pain #20 TABLETS 08/11/23 [Rx Last Taken Unknown] ondansetron 4 mg disintegrating tablet 4 mg PO Q8H PRN PRN Nausea #14 tabs 08/11/23 [Rx Last Taken Unknown] buspirone 30 mg tablet 30 mg PO DAILY 10/20/23 [History Last Taken Unknown] meclizine 25 mg tablet 25 mg PO DAILY PRN dizziness 10/20/23 [History Last Taken Unknown] ondansetron 4 mg disintegrating tablet 4 mg PO Q8H PRN PRN Nausea #10 tabs 12/22/23 [Rx Last Taken Unknown] pantoprazole 40 mg tablet,delayed release (Protonix) 40 mg PO DAILY #30 tabs 12/22/23 [Rx Last Taken Unknown] Allergy/AdvReac Type Severity Reaction Status Date / Time gluten Allergy Diarrhea Verified 12/22/23 10:54 azithromycin AdvReac Diarrhea Verified 12/22/23 10:54 Family History Mother Diabetes Cancer skin Thyroid disorder Father Diabetes Hypertension Surgical History History of cholecystectomy History of surgery on lower extremity Hx of tonsillectomy S/P cholecystectomy Social History Smoking Status: Never smoker alcohol intake: never ROS ROS ED Constitutional Constitutional ED: Denies chills or fever(s) Eyes Eyes: Denies discharge from eye(s) ENT ENT ED: Denies discharge from eye(s), rhinorrhea or sore throat Cardiovascular Cardiovascular: Denies chest pain or palpitations Respiratory/Chest Respiratory/Chest: Denies cough or dyspnea Gastrointestinal Gastrointestinal: Reports nausea; Denies abdominal pain or vomiting Genitourinary Genitourinary ED: Denies dysuria Musculoskeletal Musculoskeletal: Reports neck pain; Denies back pain or extremity pain Integumentary Denies Abrasions or rash Neurologic Neurologic: Reports headache(s) and weakness Psychiatric Psychiatric: Denies anxiety or depression Allergic/Immunologic Allergic/Immunologic ED: Denies lip swelling or urticaria EXAM Physical Exam Const Vital Signs: 12/22/23 10:54 12/22/23 11:44 Temperature 97.0 F L Temperature Source Temporal Pulse Rate 71 Respiratory Rate 18 Respiratory Effort Normal Respiratory Depth Normal Respiratory Pattern Normal Blood Pressure 122/81 H Blood Pressure Mean 94 (more content not included)... Normal [facility] Gastroenterology Visit Repor ton 12-22-2023 Gastroenterology Visit Report [facility] Gastroenterology [address] [place] [address] OFFICE VISIT Date of Service: 12/22/23 MR#: [id number] Acct: [id number] Name: DONNIE MALDONADO Rep #: [id number] : 2000 Provider: Cali Kim DO Age/Sex: 23/F [place] [facility] [place]: Signed Intake Vital Signs 10/14/22 08:38 03/15/23 15:07 11/29/23 19:43 Height 5 ft 6 in 5 ft 7 in 5 ft 7 in Intake Visit Reasons: 6 mo fu Chief Complaint: gallbladder removal 09/21 Allergies gluten Allergy (Verified 11/29/23 19:43) Diarrhea azithromycin Adverse Reaction (Verified 11/29/23 19:43) Diarrhea [facility] Medical History Allergic reaction ( 10/22/22) Anxiety Anxiety Back pain Blackout Depression Gastric reflux GERD (gastroesophageal reflux disease) Hip abductor tendonitis History of hiatal hernia Injury of head and neck Migraine headache Migraines Non-smoker Seizures Wears glasses Surgical History History of cholecystectomy History of surgery on lower extremity Hx of tonsillectomy S/P cholecystectomy Family History Mother Diabetes Cancer skin Thyroid disorder Father Diabetes Hypertension Social History Smoking Status: Never smoker alcohol intake: never HPI HPI Chief Complaint: gallbladder removal 09/21 Details: DONNIE MALDONADO, is a 23 F who presents to the office today for follow up. [facility] ED .11.03 continued abdominal pain with postprandial emesis. UA obtained x2, both contaminated. Discharged with 3 days of atb and potassium replacement, Zofran, bentyl. ? Biochemical workup CBC, CMP (potassium 3.1), LFT, lipase without significant abnormality. [facility] ED 07.19.22 continued abd pain radiating into her back; aggravated with eating/drinking ad causes emesis. Discharged with protonix, Zofran and Carafate. ? Biochemical workup CBC, CMP, lipase without significant abnormality. US RUQ hepatic measurement 17cm with normal echogenicity; distended gallbladder with +Sherwood???s sign without pericholecystic fluid; small linear fluid collection anterior to pancreatic head. [facility] gastroenterology established 07.21.22 with right abdominal/flank pain, dysphagia, heartburn, diarrhea ? CT abd/pel 07.22.22 upper normal gallbladder caliber with miniscule nonspecific pericholecystic fluid without cholecystitis features; small stool burden in ascending colon ? EGD 07.30.22 LA Grade D reflux esophagitis; 2cm hiatal hernia; normal duodenum. Pathology noting hyperplastic mucosa changes without metaplasia. ? Protonix 40mg BID; continue Carafate QID *BGI established 08.11.22 following [facility] ED presentations for abdominal pain and dysuria. Presented to urgent care who diagnosed UTI and instructed ED presentation for IVF; [place] ED presentation without testing indicative of UTI. HIDA scan 09.01.22 <35%. 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 H.Pylori negative. Biochemical workup CBC, ESR, CMP, LDH, АННА comp, ANCA, celiac, IgGME, ASHLEY without pertinent abnormality. Celiac IgA L72 CRP H17, IgA L72 RAST: Low/Equivocal Peanut, Cows milk. Low Wheat. [facility] Dr. Garcia seen 09.07.22 with recommendation for laparoscopic cholecystectomy. OV 5.. she has not made any dietary changes to date; she recently moved in with her boyfriend who is a very picky eater. She continues to have symptoms as previously. Notes that if she has both dairy and wheat she will have worse symptoms. She would like to establish with nutrition services. OV 5.9.24 Pt reports that since moving back in with her family and eating home cooked food she is not having any GI symptoms of concern. Pt states that she is working with [employer]. Reports a formed BM every other day which she reports is her normal. Pt continues with Pantoprazole and Busprione. 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 Pt denies seeing a Dr after fall, but states she will go get checked out after this appointment. ROS Const Constitutional: Positive for fatigue, frequent falls, headache(s) and weakness; No fever(s) or weight change ENT ENT: Positive for headache(s); No difficulty swallowing Gastro GI: Positive for nausea/dyspepsia; No abdominal pain, belching, bloating, c (more content not included)... Normal [facility] ,Serum,hCG Quali.on 12-22-2023 HCG, SERUM QUAL Negative Normal [facility] Comment on above: Performed By: #### L 100.0100, L700.6800, L500.2500 ####[facility] [address] [place], [address] Spine Cervical without Contr ason 12-22-[address] [facility] Imaging Services [address] [place], [place] [address] Spine Cervical without Contras MR#: [id number] Acct: [id number] Name: DONNIE MALDONADO Rep #: [id number] : 2000 F 23 From: Gulshan cox MD PCP: Dr. Fani Baez MD Status: REG ER Study: Spine Cervical without Contras Date of Exam: 0 12/22/23 Exam# [id number] Ordering Dr: Flor Salguero MD -[id number] STUDY: CT CERVICAL SPINE WITHOUT CONTRAST REASON FOR EXAM: Female, 23 years old. Neck pain following a fall. RADIATION DOSAGE (If Supplied By Facility): CTDIvol = ( 19.27 ) mGy, DLP = ( 412.21 ) mGycm TECHNIQUE: High resolution transaxial imaging was performed without contrast material. Sagittal and coronal images were reconstructed. Individualized dose optimization techniques were used for this CT. COMPARISON: None FINDINGS: Normal craniovertebral junction. Normal anterior atlantoaxial articulation. Normal odontoid process. There is straightening of the normal cervical lordosis. Normal vertebral bodies and posterior osseous elements. C2-3: Normal endplates. Normal disc height and morphology. Normal central canal and intervertebral neuroforamina. C3-4: Normal endplates. Normal disc height and morphology. Normal central canal and intervertebral neuroforamina. C4-5: Normal endplates. Normal disc height and morphology. Normal central canal and intervertebral neuroforamina. C5-6: Normal endplates. Normal disc height and morphology. Normal central canal and intervertebral neuroforamina. C6-7: Normal endplates. Normal disc height and morphology. Normal central canal and intervertebral neuroforamina. C7-T1: Normal endplates. Normal disc height and morphology. Normal central canal and intervertebral neuroforamina. Normal visualized soft tissue structures. CT/Spine Cervical without Contras IMPRESSION: Normal unenhanced CT examination of the cervical spine. Straightening of the normal cervical lordosis. Electronically Signed: Gulshan Leal MD at 12:23 EDT , CC: Dr. Flor Salguero MD; Dr. Fani Baez MD Operating Room Scheduler: Signed [facility] EKGon 12-19-2023 Electrocardiogram Ventricular Rate : 6 5 BPM Atrial Rate : 65 BPM P-R Interval : 166 ms QRS Duration : 94 ms Q-T Interval : 408 ms QTC Calculation(Bazett) : 424 ms Calculated P Sussex : 57 degrees Calculated R Sussex : 85 degrees Calculated T Sussex : 48 degrees Normal sinus rhythm RSR v-1 Nonspecific T wave abnormality Abnormal ECG When compared to previous ekg no significant changes seen Confirmed by MARIOLA HDZ MD ([id number]) on 06/13/2024 10:21:35 PM NAME : DONNIE MALDONADO PID : [id number] : 2000 Gender : Female Race : ORD : Procedure Date : Dec 19 2023 14:22:16 Edit Date : Jun 13 2024 22:21:41 Diagnosis: Normal sinus rhythm RSR v-1 Nonspecific T wave abnormality Abnormal ECG When compared to previous ekg no significant changes seen Confirmed by MARIOLA HDZ MD ([id number]) on 06/13/2024 10:21:35 PM Test Reason : Syncope Location : 101 : CDLGXT Overread By : MARIOLA HDZ MD Edited By : MARIOLA HDZ MD Referred By : , Acquired by : , [facility] Electrocardiogram Ventricular Rate : 6 8 BPM Atrial Rate : 68 BPM P-R Interval : 160 ms QRS Duration : 94 ms Q-T Interval : 408 ms QTC Calculation(Bazett) : 433 ms Calculated P Sussex : 59 degrees Calculated R Sussex : 84 degrees Calculated T Sussex : 45 degrees Normal sinus rhythm RSR v-1 Nonspecific T wave abnormality Abnormal ECG When compared to previous ekg no significant changes seen Confirmed by MARIOLA HDZ MD ([id number]) on 06/13/2024 10:22:14 PM NAME : GHAZAL MALDONADOSA PID : [id number] : 2000 Gender : Female Race : ORD : Procedure Date : Dec 19 2023 14:13:49 Edit Date : Jun 13 2024 22:22:17 Diagnosis: Normal sinus rhythm RSR v-1 Nonspecific T wave abnormality Abnormal ECG When compared to previous ekg no significant changes seen Confirmed by MARIOLA HDZ MD ([id number]) on 06/13/2024 10:22:14 PM Test Reason : Syncope Location : 101 : [facility] Overread By : MARIOLA HDZ MD Edited By : MARIOLA HDZ MD Referred By : , Acquired by : , [facility] Electrocardiogram Ventricular Rate : 6 5 BPM Atrial Rate : 65 BPM P-R Interval : 158 ms QRS Duration : 94 ms Q-T Interval : 416 ms QTC Calculation(Bazett) : 432 ms Calculated P Sussex : 56 degrees Calculated R Sussex : 83 degrees Calculated T Sussex : 41 degrees Normal sinus rhythm RSR v-1 Normal ECG When compared to previous ekg no significant changes seen Reconfirmed by MARIOLA HDZ MD ([id number]) on 06/13/2024 10:21:00 PM NAME : GHAZAL MALDONADOSA PID : [id number] : 2000 Gender : Female Race : ORD : Procedure Date : Dec 19 2023 14:04:13 Edit Date : Jun 13 2024 22:21:02 Diagnosis: Normal sinus rhythm RSR v-1 Normal ECG When compared to previous ekg no significant changes seen Reconfirmed by MARIOLA HDZ MD ([id number]) on 06/13/2024 10:21:00 PM Test Reason : Syncope Location : 101 : [facility] Overread By : MARIOLA HDZ MD Edited By : MARIOLA HDZ MD Referred By : , Acquired by : , [facility] 12 Lead EKGon 11-29-2023 12 Lead EKG [facility] Cardiovascular Services [address] [place] [address] 12 Lead EKG 11/29/232010 MR#: [id number] Acct: [id number] Name: DONNIE MALDONADO Rep #: [id number] : 2000 23 From: Meir Vitale MD Attending Dr: Status: DEP ER Ordering Dr: Keith Parker DO Date: 11/29/23 Location: ED Sex: F C Admitted: Test Reason : CP Blood Pressure : / mmHG Vent. Rate : 081 BPM Atrial Rate : 081 BPM P-R Int : 168 ms QRS Dur : 094 ms QT Int : 378 ms P-R-T Axes : 038 068 010 degrees QTc Int : 439 ms Normal sinus rhythm Nonspecific T wave abnormality Abnormal ECG Confirmed by MEIR VITALE MD ([id number]), video effects editor ASHOK MADDEN ([id number]) on 11/30/2023 9:19:10 AM Referred By: DK Confirmed By:MEIR VITALE MD 11/30/23918 Date Meir Vitale MD CC: Dr. Keith Parker DO; Dr. Fani Baez MD Signed Normal [facility] Basic Metabolic Profile (BMP )on 11-29-2023 BUN/CRE 20.0 RATIO Normal 10-20 [facility] Comment on above: Order Comment: 'TROP ' Serial specimen #1, #2 or #3: 1 Performed By: #### L 501.4020, L500.2500, L100.0100 ####[facility] [address] [place], [address] CA,Total 8.3 mg/dL Low 8.5-10.1 [facility] Comment on above: Order Comment: 'TROP ' Serial specimen #1, #2 or #3: 1 Performed By: #### L 501.4020, L500.2500, L100.0100 ####[facility] [address] [place], [address] Chloride [Moles/Vol] 109 mmol/L High 98-107 [facility] Comment on above: Order Comment: 'TROP ' Serial specimen #1, #2 or #3: 1 Performed By: #### L 501.4020, L500.2500, L100.0100 ####[facility] [address] [place], [address] CO2 [Moles/Vol] 24.0 mmol/L Normal 21.0-32.0 [facility] Comment on above: Order Comment: 'TROP ' Serial specimen #1, #2 or #3: 1 Performed By: #### L 501.4020, L500.2500, L100.0100 ####[facility] [address] [place], [address] Creatinine [Mass/Vol] 0.75 mg/dL Normal 0.55-1.02 [facility] Comment on above: Order Comment: 'TROP ' Serial specimen #1, #2 or #3: 1 Result Comment: The validity of the calculated GFR GFRAA in patients over 70 years has not been determined. Clinical correlation is essential. Performed By: #### L 501.4020, L500.2500, L100.0100 ####[facility] [address] [place], [address] ECRCL 155.81 ml/min Normal [facility] Comment on above: Order Comment: 'TROP ' Serial specimen #1, #2 or #3: 1 Performed By: #### L 501.4020, L500.2500, L100.0100 ####[facility] [address] [place], [address] EST GFR - AA 120 mL/min Normal >60 [facility] Comment on above: Order Comment: 'TROP ' Serial specimen #1, #2 or #3: 1 Result Comment: Afri can Nigerien GFR Calc Performed By: #### L 501.4020, L500.2500, L100.0100 ####[facility] [address] [place], [address] GAP 6 Normal 5-15 [facility] Comment on above: Order Comment: 'TROP ' Serial specimen #1, #2 or #3: 1 Performed By: #### L 501.4020, L500.2500, L100.0100 ####[facility] [address] [place], [address] GFR/1.73 sq M.predicted among non-blacks MDRD (S/P/Bld) [Vol rate/Area] 100 mL/min/{1.73_m2} Normal >60 [facility] Comment on above: Order Comment: 'TROP ' Serial specimen #1, #2 or #3: 1 Result Comment: Non- GFR Calc Performed By: #### L 501.4020, L500.2500, L100.0100 ####[facility] [address] [place], [address] Glucose [Mass/Vol] 90 mg/dL Normal 74-106 [facility] Comment on above: Order Comment: 'TROP ' Serial specimen #1, #2 or #3: 1 Performed By: #### L 501.4020, L500.2500, L100.0100 ####[facility] [address] [place], [address] Potassium [Moles/Vol] 3.7 mmol/L Normal 3.5-5.1 [facility] Comment on above: Order Comment: 'TROP ' Serial specimen #1, #2 or #3: 1 Performed By: #### L 501.4020, L500.2500, L100.0100 ####[facility] [address] [place], [address] Sodium [Moles/Vol] 139 mmol/L Normal 136-145 [facility] Comment on above: Order Comment: 'TROP ' Serial specimen #1, #2 or #3: 1 Performed By: #### L 501.4020, L500.2500, L100.0100 ####[facility] [address] [place], [address] Urea nitrogen [Mass/Vol] 15 mg/dL Normal 7-18 [facility] Comment on above: Order Comment: 'TROP ' Serial specimen #1, #2 or #3: 1 Performed By: #### L 501.4020, L500.2500, L100.0100 ####[facility] [address] [place], [address] CBC W/Diff, Automatedon 11-13 Absolute Lymph 3.27 X10 3/uL Normal 0.83-4.51 [facility] Comment on above: Performed By: #### L 501.4020, L500.2500, L100.0100 ####[facility] [address] [place], [address] Absolute Neut 6.5 X10 3/uL Normal 2.0-7.7 [facility] Comment on above: Performed By: #### L 501.4020, L500.2500, L100.0100 ####[facility] [address] [place], [address] Basophils/100 WBC (Bld) 0.7 % Normal 0-1 [facility] Comment on above: Performed By: #### L 501.4020, L500.2500, L100.0100 ####[facility] [address] [place], [address] Eosinophils/100 WBC (Bld) 6.0 % High 0-5 [facility] Comment on above: Performed By: #### L 501.4020, L500.2500, L100.0100 ####[facility] [address] [place], [address] Erythrocyte distribution width (RBC) [Ratio] 13.2 % Normal 11.6-14.6 [facility] Comment on above: Performed By: #### L 501.4020, L500.2500, L100.0100 ####[facility] [address] [place], [address] Hematocrit (Bld) [Volume fraction] 41.1 % Normal 37-47 [facility] Comment on above: Performed By: #### L 501.4020, L500.2500, L100.0100 ####[facility] [address] [place], [address] Hemoglobin (Bld) [Mass/Vol] 13.7 g/dL Normal 12.0-15.0 [facility] Comment on above: Performed By: #### L 501.4020, L500.2500, L100.0100 ####[facility] [address] [place], [address] IG% 0.400 Normal 0.0-0.9 [facility] Comment on above: Result Comment: IG% - Immature Granulocytes (promyelocytes, myelocytes and metamyelocytes) > 1% indicates that a LEFT SHIFT is Present. Performed By: #### L 501.4020, L500.2500, L100.0100 ####[facility] [address] [place], [address] Lymphocytes/100 WBC (Bld) 29.7 % Normal 19-41 [facility] Comment on above: Performed By: #### L 501.4020, L500.2500, L100.0100 ####[facility] [address] [place], [address] MCH (RBC) [Entitic mass] 29.7 pg Normal 27.0-32.0 [facility] Comment on above: Performed By: #### L 501.4020, L500.2500, L100.0100 ####[facility] [address] [place], [address] MCHC (RBC) [Mass/Vol] 33.3 g/dL Normal 32-36 [facility] Comment on above: Performed By: #### L 501.4020, L500.2500, L100.0100 ####[facility] [address] [place], [address] MCV (RBC) [Entitic vol] 89.2 fL Normal 81-99 [facility] Comment on above: Performed By: #### L 501.4020, L500.2500, L100.0100 ####[facility] [address] [place], [address] Monocytes/100 WBC (Bld) 3.9 % Normal 0-10 [facility] Comment on above: Performed By: #### L 501.4020, L500.2500, L100.0100 ####[facility] [address] [place], [address] Neutrophils/100 WBC (Bld) 59.3 % Normal 47-70 [facility] Comment on above: Performed By: #### L 501.4020, L500.2500, L100.0100 ####[facility] [address] [place], [address] Nucleated RBC (Bld) [#/Vol] 0 10*3/uL Normal 0-5 [facility] Comment on above: Performed By: #### L 501.4020, L500.2500, L100.0100 ####[facility] [address] [place], [address] Platelet mean volume (Bld) [Entitic vol] 7.9 fL Normal 6.2-12.0 [facility] Comment on above: Performed By: #### L 501.4020, L500.2500, L100.0100 ####[facility] [address] [place], [address] Platelets (Bld) [#/Vol] 376 10*3/uL Normal 150-450 [facility] Comment on above: Performed By: #### L 501.4020, L500.2500, L100.0100 ####[facility] [address] [place], [address] RBC (Bld) [#/Vol] 4.61 10*6/uL Normal 4.2-5.4 [facility] Comment on above: Performed By: #### L 501.4020, L500.2500, L100.0100 ####[facility] [address] [place], [address] RDW SD 43.1 fl Normal 35.1-43.9 [facility] Comment on above: Performed By: #### L 501.4020, L500.2500, L100.0100 ####[facility] [address] [place], [address] WBC (Bld) [#/Vol] 11.0 10*3/uL Normal 4.4-11.0 [facility] Comment on above: Performed By: #### L 501.4020, L500.2500, L100.0100 ####[facility] [address] [place], [address] Chest 1 View (Portable)on Chest 1 View (Portable) [facility] Imaging Services [address] [place] [address] Chest 1 View (Portable) MR#: [id number] Acct: [id number] Name: DONNIE MALDONADO Rep #: [id number] : 2000 F 23 From: Bossman Velez MD PCP: Dr. Fani Baez MD Status: REG ER Study: Chest 1 View (Portable) Date of Exam: 11/29/23 Exam# [id number] Ordering Dr: Keith Parker DO -[id number] STUDY: X-RAY CHEST REASON FOR EXAM: Female, 23 years old. COUGH TECHNIQUE: Single AP portable view of the chest. COMPARISON: March 15, 2023 FINDINGS: There are monitoring devices. The lungs are clear and expanded. There is no demonstrated pleural abnormality. Normal size heart. Normal mediastinum and savannah. Normal visualized pulmonary arteries. Normal visualized aortic arch and descending thoracic aorta. Normal visualized thoracic spine. Normal visualized ribs, clavicles, and shoulders. There is no demonstrated abnormality of the visualized soft tissue structures of the upper abdomen. RAD/Chest 1 View (Portable) IMPRESSION: Normal x-ray examination of the chest. Electronically Signed: Bossman Velez MD at 21:29 EDT , CC: Dr. Keith Parker DO; Dr. Fani Baez MD Operating Room Scheduler: Signed Normal [facility] D-Dimer Quantitative (DVT/PE )on 11-29-2023 D-DIMER QUANT 0.37 FEU/ug/m Normal 0.27-0.49 [facility] Comment on above: Result Comment: NORM AL D-Dimer level (<0.50) indicates no DVT or PE. Performed By: #### L 300.8000 ####[facility] [address] [place], [address] Emergency Department Summary on 11-29-2023 Emergency Department Summary [facility] Medical Records Department [address] [place] [address] Emergency Department Summary 11/29/23 MR#: [id number] Acct: [id number] Name: DONNIE MALDONADO Rep #: [id number] : 2000 23 From: Keith Parker DO PCP: Dr. Fani Baez MD Status:REG ER Location: ED HPI History of Present Illness Chief Complaint: Chest Pain Narrative Narrative: 23-year-old female presenting with chest pain. She states is left-sided and feels heavy. She has had it all day since she woke up. She has had this in the past. She has no cardiac history. No history of DVT/PE. She is on oral control. Patient denies fever, chills, cough. She denies any trauma. She does not feel short of breath. She does have a history of anxiety. [facility] Medical History Allergic reaction ( 10/22/22) Anxiety Anxiety Back pain Blackout Depression Gastric reflux GERD (gastroesophageal reflux disease) Hip abductor tendonitis History of hiatal hernia Injury of head and neck Migraine headache Migraines Non-smoker Seizures Wears glasses Home Medications Desogestrel-Ethinyl Estradiol [Apri 28 Day Tablet] 1 ea PO DAILY 11/03/18 [History Last Taken Unknown] acetaminophen 500 mg tablet 500 - 1,000 mg PO Q6H PRN PRN Headache 11/03/18 [History Last Taken Unknown] pjrypkc-yqcyohmqhnbec-fgbpqcop 250 mg-250 mg-65 mg tablet (Headache Relief (HTI-tsvylvwpiklj-mxlucclu)) 1 ea PO BID PRN Headache 11/03/18 [History Last Taken Unknown] buspirone 15 mg tablet 15 mg PO BID Anxiety 11/03/18 [History Last Taken Unknown] ibuprofen 200 mg tablet 600 - 800 mg PO Q6H PRN PRN Pain 11/03/18 [History Last Taken Unknown] topiramate 50 mg tablet 100 mg PO BID 11/03/18 [History Last Taken Unknown] ondansetron 4 mg disintegrating tablet 4 mg PO Q8H PRN nausea and vomiting #10 tabs 07/19/22 [Rx Last Taken Unknown] pantoprazole 40 mg tablet,delayed release (Protonix) 40 mg PO DAILY #30 tabs 07/19/22 [Rx Last Taken Unknown] dextroamphetamine-amphetamine ER 20 mg 24hr capsule,extend release 20 mg PO DAILY 09/14/22 [History Last Taken Unknown] fluoxetine 40 mg capsule (Prozac) 40 mg PO DAILY 09/14/22 [History Last Taken Unknown] gabapentin 100 mg capsule 100 mg PO QHS 09/14/22 [History Last Taken Unknown] hydroxyzine pamoate 25 mg capsule 25 mg PO PRN PRN Anxiety 09/14/22 [History Last Taken Unknown] rimegepant 75 mg disintegrating tablet (Nurtec ODT) 75 mg PO PRN PRN MIGRAINES 09/14/22 [History Last Taken Unknown] acetaminophen 500 mg tablet (Tylenol Extra Strength) 1,000 mg (2 x 500 mg) PO Q6H PRN pain #20 tabs 08/11/23 [Rx Last Taken Unknown] ibuprofen 600 mg tablet 600 mg PO Q8H PRN PRN pain #20 TABLETS 08/11/23 [Rx Last Taken Unknown] ondansetron 4 mg disintegrating tablet 4 mg PO Q8H PRN PRN Nausea #14 tabs 08/11/23 [Rx Last Taken Unknown] buspirone 30 mg tablet 30 mg PO DAILY 10/20/23 [History Last Taken Unknown] meclizine 25 mg tablet 25 mg PO DAILY PRN dizziness 10/20/23 [History Last Taken Unknown] Allergy/AdvReac Type Severity Reaction Status Date / Time gluten Allergy Diarrhea Verified 11/29/23 19:43 azithromycin AdvReac Diarrhea Verified 11/29/23 19:43 Family History Mother Diabetes Cancer skin Thyroid disorder Father Diabetes Hypertension Surgical History History of cholecystectomy History of surgery on lower extremity Hx of tonsillectomy S/P cholecystectomy Social History Smoking Status: Never smoker alcohol intake: never ROS ROS ED Constitutional Constitutional ED: Denies chills, fever(s) or sweats Eyes Eyes: Denies blurry vision or change in vision ENT ENT ED: Denies ear pain or sore throat Cardiovascular Cardiovascular: Reports chest pain; Denies palpitations or racing heartbeat Respiratory/Chest Respiratory/Chest: Denies cough, dyspnea or sputum Gastrointestinal Gastrointestinal: Denies abdominal pain, constipation, diarrhea, nausea or vomiting Genitourinary Genitourinary ED: Denies dysuria, hematuria or urinary frequency Musculoskeletal Musculoskeletal: Denies arthralgias, myalgias or neck pain Integumentary Denies abscess, Abrasions or rash Neurologic Neurologic: Denies headache(s), paresthesias or weakness Psychiatric Psychiatric: Denies anxiety, depression, suicidal ideation or suicidal thoughts Endocrine Endocrinology: Denies polydipsia or polyuria EXAM Physical Exam Const Vital Signs: 11/29/23 19:43 11/29/23 19:56 11/29/23 20:31 Temperature 96.6 F L Temperature Source Temporal Pulse Rate 88 Respiratory Rate 18 Respiratory Effort Normal Non-Labored Blood Pressure 132/94 H Bl (more content not included)... Normal [facility] L501.4020on 11-29-2023 TROPONIN-I HS 4 pg/mL Normal 3.0-54.0 [facility] Comment on above: Order Comment: 'TROP ' Serial specimen #1, #2 or #3: 1 Result Comment: Plea se Note: New Test Units and Gender Specific Reference Ranges. For more information see Policy Stat Procedure [place] High Sensitivity Troponin (TNIH) and attachments. Performed By: #### L 501.4020, L500.2500, L100.0100 ####[facility] [address] [place], [address] NURSING PROGon 07-31-2022 NURSING PROG HNO ID: [id number] Author: Emmanuelle Hadley RN Service: ? Author Type: Registered Nurse Type: Nursing Progress Note Filed: 08/02/2022 10:04 AM Note Text: [facility] ENDOSCOPY POST PROCEDURE FOLLOW UP CALL [phone] (home) Date Phone Call Made: 08/02/2022 Attempt: Attempt #1 Spoke to: Significant Other mother SYMPTOM DESCRIPTION Pain or Discomfort rated as: None IV No complaints Diet Back to Previous yes Nausea/Vomiting: None Bleeding: None Bowel Habits: Normal Other Issues: No Complaints Offered Was the nursing staff attentive to your needs? Yes Is there something our department could have done to make your experience more pleasant? No Emmanuelle Hadley RN Normal [facility] ANES POSTPROC EVALon 022 ANES POSTPROC EVAL HNO ID: [id number] Author: Meche Rodríguez MD Service: Anesthesiology Author Type: Physician Type: Anesthesia Postprocedure Evaluation Filed: 07/30/2022 10:16 AM Note Text: POST ANESTHESIA EVALUATION NOTE : 2000 Procedure Summary Date: 07/30/22 Room / Location: [facility] Anesthesia Start: 954 Anesthesia Stop: 1013 Procedure: EGD DIAGNOSTIC Diagnosis: Gastroesophageal reflux disease, unspecified whether esophagitis present (Heartburn) Scheduled Providers: Emmanuelle Live DO Responsible Provider: Meche Rodríguez MD Anesthesia Type: MAC ASA Status: 3 Anesthesia Type: MAC Last Vitals Vitals Value Taken Time BP 97/53 07/30/22 1011 Temp 07/30/22 1016 Pulse 63 07/30/22 1014 Resp 22 07/30/22 1014 SpO2 98 % 07/30/22 1014 Vitals shown include unvalidated device data. Post Anesthesia Patient Status Patient Evaluation: PACU. PACU/ICU Patient Condition: stable. Anticipated Disposition: phase 2 then home. Neurological Status: aware and responsive. Pulmonary Status: breathing comfortably on room air Airway Control: returned to baseline unsupported. Cardiovascular Status: stable. Pain Management: clinically adequate Postoperative Hydration: acceptable. Intraoperative Events: no significant anesthesia events Post Operative Nausea/Vomiting Status: no significant post operative nausea or vomiting Recommendation: continue current plan of care. Anesthesia Observations No Documentation SIGNATURE: Meche Rodríguez MD PATIENT NAME: Donnie Maldonado DATE: July 30, 2022 TIME: 10:16 AM CSN: [id number] [facility] ANES PRE-OPon 07-30-2022 ANES PRE-OP HNO ID: [id number] Author: Meche Rodríguez MD Service: Anesthesiology Author Type: Physician Type: Anesthesia Preprocedure Evaluation Filed: 07/30/2022 9:41 AM Note Text: ANESTHESIOLOGY DAY OF SURGERY NOTE : 2000 Procedure Information Date/Time: 07/30/22 1000 Scheduled providers: Emmanuelle Live DO Procedure: EGD DIAGNOSTIC Location: [facility] Estimated body mass index is 35.83 kg/m? as calculated from the following: Height as of this encounter: 167.6 cm (5' 6). Weight as of 07/27/22: 100.7 kg (222 lb). Most recent hematocrit and potassium results: Hematocrit 38.1 07/22/2022 Potassium 3.5 07/22/2022 Relevant Problems CARDIO (+) SOB (shortness of breath) on exertion NEURO-PSYCH (+) Headache PULMONARY (+) SOB (shortness of breath) on exertion Anxiety Migraines Generalized Anxiety disorder BMI 35 I - PHYSICAL EVALUATION AIRWAY Patient intubated: No. Tracheostomy tube not present Mallampati: III. TM distance: >3 FB. Neck ROM: limited flexion and extension. Mouth opening: adequate. Short neck: no. Thick neck: no Lombardo present: no DENTAL Dental findings: teeth intact. Additional exam findings: no II - ANESTHESIA PLAN ASA Score: 3 Anesthetic Plan: MAC The patient is not a current smoker. NPO Status: adequate Beta Puneet Monitoring Plan Monitoring plan: standard ASA. Post Procedure Analgesic Plan Postoperative analgesic plan: parenteral or oral opioids. Informed Consent Anesthetic risks, benefits, alternatives, personnel and consent discussed: yes. Patient / Responsible Green Party agrees to proceed: yes Patient / Surrogate agrees to blood products: blood products not planned DNR status not reviewed with patient and/or family prior to surgery. Significant changes in the patient condition since the History and Physical, not otherwise documented in primary service progress note: no. Potential Anesthesia issues that may suggest increased risk of complications or contraindication to planned procedure: none. Vitals Value Taken Time BP 113/56 07/30/22 0906 Pulse 66 07/30/22 0906 Resp 16 07/30/22 09 Temp 36.3 ?C (97.3 ?F) 07/30/22 0906 SpO2 100 % 07/30/22 09 Outpatient Medications as of 07/30/2022 Medication Sig - levonorgestrel-ethinyl estradiol 0.15 mg-30 mcg (91) per tab, 3 month pack Take 1 tablet by mouth as directed. - gabapentin (NEURONTIN) 100 mg capsule Take 1 capsule by mouth daily at bedtime. - FLUoxetine (PROZAC) 40 mg capsule Take 1 capsule by mouth once daily. - amphetamine-dextroamphetamine XR (ADDERALL XR) 20 mg 24 hr capsule Take 1 capsule by mouth once daily. - busPIRone HCl 30 mg tablet Take 1 tablet by mouth twice daily. - NURTEC ODT 75 mg disintegrating tablet Take 1 tablet by mouth every 48 hours as needed. - sucralfate (CARAFATE) 100 mg/mL suspension TAKE 10 ML (CC) BY MOUTH TWICE DAILY ON AN EMPTY STOMACH 1 HOUR BEFORE MEALS - pantoprazole DR (PROTONIX) 40 mg tablet Take 40 mg by mouth once daily. - famotidine (PEPCID) 20 mg tablet Take 1 tablet by mouth twice daily for 14 days. - ondansetron orally disintegrating (ZOFRAN ODT) 4 mg disintegrating tablet dissolve 1 tablet ON TONGUE every 4 hours if needed for nausea and vomiting - topiramate (TOPAMAX) 50 mg tablet Take 1 tablet by mouth twice daily. - hydrOXYzine pamoate (VISTARIL) 25 mg capsule Take 1 capsule by mouth twice daily as needed. - cholecalciferol (VITAMIN D-3) 5,000 unit tab Take 1 tablet by mouth once daily. - AIMOVIG AUTOINJECTOR 140 mg/mL auto-injector Facility-Administered Medications as of 07/30/2022 Medication Dose Route Frequency - lactated ringers iv infusion 30 mL/hr INTRAVENOUS CONTINUOUS I have interviewed and examined the patient. I have reviewed the medical record and/or the pre-anesthesia evaluation, pertinent labs, and test results. This contains updated information obtained within 48 hours of Surgery/Procedure. SIGNATURE: Meche Rodríguez MD PATIENT NAME: Donnie Maldonado DATE: July 30, 2022 TIME: 9:39 AM CSN: [id number] [facility] EGD DIAGNOSTICon 07-30-2022 [facility] HISTORY PHYSICALon HISTORY PHYSICAL HNO ID: [id number] Author: Indy Kelly PA-C Service: Gastroenterology Author Type: Physician Linderman Machine Operator Type: HANDP Filed: 07/30/2022 9:31 AM Note Text: UPDATED HISTORY AND PHYSICAL EXAMINATION SERVICE DATE: 07/30/2022 SERVICE TIME: 9:21 AM SERVICE: Gastroenterology PHYSICAL EXAM MUST BE COMPLETED ON ADMISSION The History and Physical (completed in the past 30 days) has been reviewed and the patient has been examined. The contents accurately reflect the patient's condition with the following additions or revisions since the HANDP was completed. This is a 22 y/o [...] PAIN, N/V/D Medication reconciliation list reviewed in [facility]. Past medical history, past surgical history, social history and family history reviewed and updated in [facility]. ALLERGIES Allergies: Zpak [Azithromycin] Diarrhea Comment:Diarrhea AND stomach pain SEE [facility] FOR VITALS BP 113/56 Pulse 66 Temp 36.3 ?C (97.3 ?F) (Tympanic) Resp 16 Ht 167.6 cm (5' 6) LMP (LMP Unknown) SpO2 100% BMI 35.83 kg/m? Examination indicates no changes. On examination today: Lungs: Clear to auscultation bilaterally. Heart: RRR, Normal S1/S2, No murmurs, rubs, gallops or thrills appreciated. Abdomen: BS+ in all quadrants, abdomen is soft, non tender, and without guarding. Assessment: 1.Gastroesophageal reflux disease, unspecified whether esophagitis present [K21.9] Plan: EGD This HANDP can be found in the Electronic Medical Record dated 07/27/2022 completed by Debbie Dickson PA-C SIGNATURE: Indy Kelly PA-C PATIENT NAME: Donnie Maldonado DATE: 07/30/2022 TIME: 9:21 AM Normal [facility] SURGICAL PATHOLOGYon CASE REPORT Normal [facility] Comment on above: Order Comment: Speci men Type: TISSUE SPECIMEN Ordering Facility: [facility] Address: [address] [place] [phone] Result Comment: Surg ica Pathology Report Case: [id number] Authorizing Provider: Emmanuelle Live DO Collected: 07/30/2022 10:05 AM Ordering Location: [facility] Received: 07/30/2022 12:02 PM [facility] Pathologist: Birgit Cavazos MD Specimen: ESOPHAGOGASTRIC JUNCTION BIOPSY Performed By: #### S #### [facility] CLIA [id number] [facility] [id number] LABORATORY CLIA [id number] [place] [address] CLINICAL HISTORY h/o GERD Normal [facility] Comment on above: Order Comment: Speci men Type: TISSUE SPECIMEN Ordering Facility: [facility] Address: [address] [place] [address] Performed By: #### S #### [facility] CLIA [id number] [address] [place] [address] LABORATORY CLIA [id number] [place] [address] FINAL DIAGNOSIS Normal [facility] Comment on above: Order Comment: Speci men Type: TISSUE SPECIMEN Ordering Facility: [facility] Address: [address] [place] [address] Result Comment: A. G astroesophageal junction, biopsy: - Mildly hyperplastic squamous esophageal mucosa and mildly inflamed gastric cardia-type mucosa with reactive epithelial changes; negative for intestinal metaplasia. Performed By: #### S #### [facility] CLIA [id number] [address] [place] [address] LABORATORY CLIA [id number] [place] [address] FINAL PERFORMING LAB [facility] Comment on above: Order Comment: Speci men Type: TISSUE SPECIMEN Ordering Facility: [facility] Address: [address] Result Comment: Diag nostic interpretation performed at [facility], [address] [place] [address] CLIA# [id number] Medical Office Assistant: You Bagley M.D. Performed By: #### S #### [facility] CLIA [id number] [address] [place] [address] LABORATORY CLIA [id number] OF [place] DESCRIPTION Normal [facility] Comment on above: Order Comment: Speci men Type: TISSUE SPECIMEN Ordering Facility: [facility] Address: [address] [place] [phone] Result Comment: A. E SOPHAGOGASTRIC JUNCTION BIOPSY Received in formalin are two pieces of dye-white, soft tissue aggregating to 0.5 x 0.2 x 0.1 cm. Totally submitted in formalin in one cassette. Gross examination performed at [place] [id number] 07/30/2022 4:39 PM Performed By: #### S #### [facility] CLIA [id number] [address] [place] [address] [id number] [place] [address] [place] [facility] CLIA [id number] [address] [place] Upper GI endoscopy 07-30- 022 Upper GI endoscopy [facility] Gastrointestinal [facility] Patient Name: Donnie Maldonado Procedure Date: 07/30/2022 9:50 AM Date of : 2000 Admit Type: Outpatient Age: 22 Room: [place] [address] Gender: Female Note Status: Finalized Attending MD: Emmanuelle Live DO Procedure: Upper GI endoscopy Indications: Heartburn Providers: Emmanuelle Live DO Patient Profile: This is a 22 year old female. Refer to note in patient chart for documentation of history and physical. Referring Physician: Greg Robles MD (Referring MD) Medicines: See the Anesthesia note for documentation of the administered medications Complications: No immediate complications. Requesting Provider: Procedure: Pre-Anesthesia Assessment: - Prior to the procedure, a History and Physical was performed, and patient medications and allergies were reviewed. The patient is competent. The risks and benefits of the procedure and the sedation options and risks were discussed with the patient. All questions were answered and informed consent was obtained. Patient identification and proposed procedure were verified by the physician in the pre-procedure area. Mental Status Examination: alert and oriented. Airway Examination: normal oropharyngeal airway and neck mobility. Respiratory Examination: clear to auscultation. CV Examination: normal. Prophylactic Antibiotics: The patient does not require prophylactic antibiotics. Prior Anticoagulants: The patient has taken Brilinta (ticagrelor), last dose was 11 days prior to procedure. ASA Grade Assessment: II - A patient with mild systemic disease. After reviewing the risks and benefits, the patient was deemed in satisfactory condition to undergo the procedure. The anesthesia plan was to use monitored anesthesia care (MAC). Immediately prior to administration of medications, the patient was re-assessed for adequacy to receive sedatives. The heart rate, respiratory rate, oxygen saturations, blood pressure, adequacy of pulmonary ventilation, and response to care were monitored throughout the procedure. The physical status of the patient was re-assessed after the procedure. After obtaining informed consent, the endoscope was passed under direct vision. Throughout the procedure, the patient's blood pressure, pulse, and oxygen saturations were monitored continuously. The Endoscope was introduced through the mouth, and advanced to the second part of duodenum. The upper GI endoscopy was accomplished without difficulty. The patient tolerated the procedure well. Moderate Sedation: MAC anesthesia was administered by the anesthesia team. Total Procedure Duration: 0 hours 3 minutes 55 seconds Findings: LA Grade D (one or more [...] biopsies were obtained at the gastroesophageal junction. Recommendation: - Patient has a contact number available for emergencies. The signs and symptoms of potential delayed complications were discussed with the patient. Return to normal activities tomorrow. Written discharge instructions were provided to the patient. - Resume previous diet indefinitely. - Continue present medications. - Await pathology results. Procedure Code(s): --- Professional --- 39297, Esophagogastroduodenoscopy, flexible, transoral; with biopsy, single or multiple Diagnosis Code(s): --- Professional --- R12, Heartburn K44.9, Diaphragmatic hernia without obstruction or gangrene K21.00, Gastro-esophageal reflux disease with esophagitis, without bleeding CPT copyright 2021 [employer]. All rights reserved. The codes documented in this report are preliminary and upon livestock auctioneer review may be revised to meet current compliance requirements. Attending Participation: I personally performed the entire procedure. Scope In: 10:00:01 AM Scope Out: 10:03:56 AM DO Emmanuelle Ibarra DO 07/30/2022 10:06:06 AM This report has been signed electronically by Emmanuelle Live DO Number of Addenda: 0 Note Initiated On: 07/30/2022 9:50 AM Estimated Blood Loss: Estimated blood loss: none. Normal [facility] NURSING PROGon 07-28-2022 NURSING PROG HNO ID: [id number] Author: Emmanuelle Hadley RN Service: ? Author Type: Registered Nurse Type: Nursing Progress Note Filed: 07/28/2022 3:10 PM Note Text: [facility] ENDOSCOPY PRE PROCEDURE CALL Kanchan. I'm calling from [facility] endoscopy to provide you with the information for your surgery/procedure tomorrow. 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 yes When anesthesia or sedation is being given: Patient instructed you must have an adult interstate bus driver because you will not be able to work or drive for the rest of the day after your test.yes Can you please confirm the name and relationship of your interstate bus driver. Queenie - mom What is the best number for your interstate bus driver to be reached at tomorrow for updates? [phone] Your interstate bus driver is allowed to wait here with you or they may drop you off and come back to pick you up. So you are prepared and comfortable on the day of your procedure, I want to make you aware of several safety measures we've put in place. You will be asked to sanitize your hands and will be provided with a mask to wear the entire time you are in our building. You may choose to bring your own masks from home. Additionally, the furniture has been rearranged to promote social distancing Patient instructed: Do not eat anything the morning of the procedure, including gum, hard candy and mints.yes Patient instructed not bring any valuables, jewelry, or dalal and wear comfortable clothing. Do not wear makeup, lotion, or finger georgian. yes Patient instructed: Please bring a list of medications including over the counter, vitamin, and herbals. If you are on inhalers, please do them in the morning before your test and bring them with you.yes Blood pressure, seizure, or thyroid medications may be taken with a couple sips of water ONLY 4 hours prior to arrival time. Is the patient on blood thinners?no If so,verify if pt contacted the prescribing doctor to see how long they may hold blood thinners prior to procedure. Are you diabetic?no If so, advise pt to contact prescribing doctor to verify if any modifications are needed for insulin and/or pills Reminder:diabetic medication instructions should be given by the patient's ordering physician. If blood sugar drops, they can have CLEAR liquids to bring it up until 3 hours prior to arrival time. Hospitalizations: No Procedure and/or bowel prep instructions given to patient and questions answered: Yes, and they verbalized their understanding of instructions given Any barriers to Patient learning (confusion? Bench Carpenter needed?): Patient/Patient Tunnel Mucker responded appropriately on phone. If patient needs to reschedule please call: [phone] [facility] phone number: [phone] Type of instruction given: Verbal by telephone contact. [facility] LABORATORYOrdered By: Anne Em on 07-16-2022 Appearance (U) Clear (07/16/22 8:41 PM) Invalid Interpretation Code Clear AO Auto Urine SS Bilirubin Ql (U) Small *ABN* (07/16/22 8:41 PM) Invalid Interpretation Code Negative AO Auto Urine SS Color (U) Yellow (07/16/22 8:41 PM) Invalid Interpretation Code AO Auto Urine SS Glucose Test strip (U) [Mass/Vol] Negative Invalid Interpretation Code Negativemg /dL AO Auto Urine SS HCG ( test) Ql Negative (07/16/22 8:41 PM) Invalid Interpretation Code AO Manual Urine SS Hemoglobin Auto test strip (U) [Mass/Vol] Moderate *ABN* (07/16/22 8:41 PM) Invalid Interpretation Code Negative AO Auto Urine SS Ketones Ql (U) 80 mg/dL Invalid Interpretation Code Negativemg /dL AO Auto Urine SS test (u) int Not detected Invalid Interpretation Code AO Manual Urine SS UA Leuk Est Negative (07/16/22 8:41 PM) Invalid Interpretation Code Negative AO Auto Urine SS UA Nitrite Negative (07/16/22 8:41 PM) Invalid Interpretation Code Negative AO Auto Urine SS UA pH 5.5 (07/16/22 8:41 PM) Invalid Interpretation Code 5.0 - 8.0 AO Auto Urine SS UA Protein Negative Invalid Interpretation Code Negativemg /dL AO Auto Urine SS UA RBC 10-15 /HPF Invalid Interpretation Code None Seen/HPF AO Auto Urine SS UA Spec Grav >=1.030 *ABN* (07/16/22 8:41 PM) Invalid Interpretation Code 1.015-1.02 5 AO Auto Urine SS UA Specimen Type Void (07/16/22 8:41 PM) Invalid Interpretation Code AO Auto Urine SS UA Squam Epithelial 15-25 /HPF Invalid Interpretation Code None Seen/HPF AO Auto Urine SS UA Urobilinogen 0.2 E.U./dL Invalid Interpretation Code 0.2-1.0E.U ./dL AO Auto Urine SS WBC LM.HPF (Urine sed) [#/Area] None Seen /HPF Invalid Interpretation Code None Seen/HPF AO Auto Urine SS UA DIP, URINE (POC)on 2021 BILIRUBIN UA (POCT) Negative Negative [facility] CLARITY UA (POCT) Clear [facility] COLOR UA (POCT) Yellow [facility] GLUCOSE UA (POCT) Negative Negative mg/dL [facility] HEMOGLOBIN/BLOOD UA (POCT) Large Abnormal Negative [facility] KETONE UA (POCT) 40 mg/dL Abnormal Negative mg/dL [facility] LEUKOCYTES UA (POCT) Trace Abnormal Negative [facility] NITRITE UA (POCT) Negative Negative [facility] PH UA (POCT) 5.5 4.5 - 8.0 [facility] Protein Ql (U) Trace Abnormal Negative mg/dL [facility] SPECIFIC GRAVITY UA (POCT) >=1.030 1.005 - 1.030 [facility] UROBILINOGEN UA (POCT) 0.2 E.U./dL Normal E.U./dL [facility] BMPon 03-09-2021 Anion gap [Moles/Vol] 8 mmol/L Normal 5-16 [facility] Comment on above: Order Comment: Campu s: M Performed By: #### L 500.82786, L500.43369, L500.32266 #### [facility] [address] [place] [address] Calcium [Mass/Vol] 8.6 mg/dL Normal 8.5-10.5 [facility] Comment on above: Order Comment: Campu s: M Result Comment: NOTE NEW NORMAL RANGE DUE TO REAGENT CHANGE Performed By: #### L 500.56218, L500.54422, L500.76542 #### [facility] [address] [place] [address] Chloride [Moles/Vol] 110 mmol/L High 98-107 [facility] Comment on above: Order Comment: Campu s: M Performed By: #### L 500.49383, L500.62494, L500.23388 #### [facility] [address] [place] [address] CO2 [Moles/Vol] 18.0 mmol/L Low 21-32 [facility] Comment on above: Order Comment: Campu s: M Performed By: #### L 500.98553, L500.12583, L500.21692 #### [facility] [place] [address] Creatinine [Mass/Vol] 0.61 mg/dL Normal 0.510-0.95 0 [facility] Comment on above: Order Comment: Campu s: M Result Comment: Tamara ents receiving either N-Acetylcysteine (NAC) or Metamizole prior to venipuncture, may have falsely depressed results. Performed By: #### L 500.59491, L500.36715, L500.62542 #### [facility] [place] [id number] Glucose [Mass/Vol] 113 mg/dL High 70-100 [facility] Comment on above: Order Comment: Campu s: M Result Comment: 70-1 00- Normal Fasting; 100-125 Impaired Fasting; greater than 126 on more than one result- Diabetes. ADA guidelines. Results may be falsely elevated after the administration of Sulfapyridine. Results may be falsely depressed after the administration of Sulfasalazine. Performed By: #### L 500.94330, L500.04340, L500.71043 #### [facility] [address] [place] [address] Potassium [Moles/Vol] 3.5 mmol/L Normal 3.5-5.1 [facility] Comment on above: Order Comment: Campu s: M Performed By: #### L 500.21841, L500.92986, L500.09449 #### [facility] [address] [place] [address] Sodium [Moles/Vol] 136 mmol/L Normal 136-145 [facility] Comment on above: Order Comment: Campu s: M Performed By: #### L 500.68725, L500.06912, L500.84305 #### [facility] [address] [place] [address] Urea nitrogen [Mass/Vol] 12 mg/dL Normal - [facility] Comment on above: Order Comment: Campu s: M Performed By: #### L 500.45748, L500.55001, L500.66231 #### [facility] [address] [place], [place] [id number] Urea nitrogen/Creatinin e [Mass ratio] 20 mg/mg Normal 15-24 [facility] Comment on above: Order Comment: Campu s: M Performed By: #### L 500.40962, L500.47512, L500.98877 #### [facility] [address] [place] [address] CBC W/DIFFon 03-09-2021 BASO ABS 0.10 K/CU MM Normal 0-0.2 [facility] Comment on above: Order Comment: Campu s: M Performed By: #### L 200.92397 #### [facility] [address] [place] [address] Basophils/100 WBC (Bld) 0.5 % Normal 0-2 [facility] Comment on above: Order Comment: Campu s: M Performed By: #### L 200.81617 #### [facility] [address] [place] [address] EOS ABS 0.40 K/CU MM Normal 0-0.5 [facility] Comment on above: Order Comment: Campu s: M Performed By: #### L 200.78828 #### [facility] [address] [place] [address] Eosinophils/100 WBC (Bld) 4.5 % Normal 0-5 [facility] Comment on above: Order Comment: Campu s: M Performed By: #### L 200.56296 #### [facility] [address] [place] [address] Erythrocyte distribution width (RBC) [Ratio] 12.9 % Normal 11-14.5 [facility] Comment on above: Order Comment: Campu s: M Performed By: #### L 200.58959 #### [facility] [address] [place] [address] Hematocrit (Bld) [Volume fraction] 38.3 % Normal 35.0-47.0 [facility] Comment on above: Order Comment: Campu s: M Performed By: #### L 200.10437 #### [facility] [address] [place] [address] Hemoglobin (Bld) [Mass/Vol] 13.2 g/dL Normal 11.5-15.5 [facility] Comment on above: Order Comment: Campu s: M Performed By: #### L 200.62757 #### [facility] [address] [place] [address] IMMATR GRAN ABS 0.00 K/CU MM Normal Less than 2 [facility] Comment on above: Order Comment: Campu s: M Performed By: #### L 200.34313 #### [facility] [address] [place] [address] IMMATURE GRAN % 0.3 % Normal Less than 2 [facility] Comment on above: Order Comment: Campu s: M Performed By: #### L 200.62788 #### [facility] [address] [place] [address] LYMPH ABS 2.30 K/CU MM Normal 0.9-4.4 [facility] Comment on above: Order Comment: Campu s: M Performed By: #### L 200.14647 #### [facility] [address] [place] [address] Lymphocytes/100 WBC (Bld) 23.6 % Normal 20-40 [facility] Comment on above: Order Comment: Campu s: M Performed By: #### L 200.59409 #### [facility] [address] [place] [address] MCHC (RBC) [Mass/Vol] 34.5 g/dL Normal 32.0-36.0 [facility] Comment on above: Order Comment: Campu s: M Performed By: #### L [id number] #### [facility] [address] [place] [address] MCV (RBC) [Entitic vol] 92.5 fL Normal 80.0-99.0 [facility] Comment on above: Order Comment: Campu s: M Performed By: #### L 200.34059 #### [facility] [address] [place] [address] MONO ABS 0.40 K/CU MM Normal 0.1-1.1 [facility] Comment on above: Order Comment: Campu s: M Performed By: #### L 200.04855 #### [facility] [address] [place] [address] Monocytes/100 WBC (Bld) 4.4 % Normal 2-10 [facility] Comment on above: Order Comment: Campu s: M Performed By: #### L 200.12880 #### [facility] [address] [place] [address] NEUTROPHIL ABS 6.40 K/CU MM Normal 2.0-8.3 [facility] Comment on above: Order Comment: Campu s: M Performed By: #### L 200.94067 #### [facility] [address] [place] [address] Neutrophils/100 WBC (Bld) 66.7 % Normal 45-75 [facility] Comment on above: Order Comment: Campu s: M Performed By: #### L 200.25579 #### [facility] [address] [place] [address] Nucleated RBC/100 WBC (Bld) [Ratio] 0.0 % Normal Less than 1 [facility] Comment on above: Order Comment: Campu s: M Performed By: #### L 200.29795 #### [facility] [address] [place] [address] Platelet mean volume (Bld) [Entitic vol] 8.0 fL Low 9.4-12.4 [facility] Comment on above: Order Comment: Campu s: M Performed By: #### L 200.42093 #### [facility] [address] [place] [address] PLT 343 K/CU MM Normal 150-450 [facility] Comment on above: Order Comment: Campu s: M Performed By: #### L 200.87944 #### [facility] [address] [place] [address] RBC 4.14 M/CU MM Normal 3.90-5.30 [facility] Comment on above: Order Comment: Campu s: M Performed By: #### L 200.57362 #### [facility] [address] [place] [address] WBC 9.6 K/CUMM Normal 4.5-11.0 [facility] Comment on above: Order Comment: Campu s: M Performed By: #### L 200.05839 #### [facility] [place] [address] CHEST PA/AP AND LATERALon CHEST PA/AP AND LATERAL EXAMINATION: CHEST RADIOGRAPH (2 VIEW FRONTAL & LATERAL) CLINICAL HISTORY: Cough MQ: XC2_6 EXAM DATE/TIME: 03/09/2021 4:02 AM COMPARISON: No relevant prior studies available. RESULT: Lines, tubes, and devices: None. Lungs and pleura: No consolidation, pleural effusion or pneumothorax. Cardiomediastinal silhouette: Normal cardiomediastinal silhouette. Bones and soft tissues: There are small radiopaque foci in the abdomen, presumably related to retained ingested material or medication in the colon. IMPRESSION: No acute radiographic abnormality. Small radiopaque foci within the abdomen presumably related to retained ingested material or medication in the colon. Please correlate clinically. This report was electronically signed by Brendon Reyna 03/09/2021 5:28 AM Reported By: BRENDON REYNA MD Signed By: BRENDON REYNA MD Normal [facility] EKGon 03-09-2021 Electrocardiogram Procedure Date and T isa: 03/09/21 0429 Test Reason : STAT Blood Pressure : / mmHG Vent. Rate : 074 BPM Atrial Rate : 074 BPM P-R Int : 154 ms QRS Dur : 096 ms QT Int : 394 ms P-R-T Axes : 044 078 025 degrees QTc Int : 437 ms Normal sinus rhythm Nonspecific T wave abnormality Abnormal ECG No previous ECGs available Confirmed by SABDAKOTA Knapp A. ([id number]) on 03/09/2021 11:17:42 AM Referred By: Suleiman Ashley Confirmed By:Dany HDZ M.D.FACC Nicola DDandT: 03/09/21 0429 TDandT: [facility] PATIENT NAME: DONNIE MALDONADO [facility] [address] Perla MEDICAL REC #: [id number] [place] [address] ADMIT DATE: DISCHARGE DATE: 03/09/21 ATTENDING PHY: Olive Huggins MD ELECTROCARDIOGRAM REPORT CLB cc: [facility] PATIENT NAME: DONNIE MALDONADO [facility] [address] Perla MEDICAL REC #: [id number] [place] [address] ADMIT DATE: DISCHARGE DATE: 03/09/21 ATTENDING PHY: Olive Huggins MD ELECTROCARDIOGRAM [facility]PORT [facility] PH[facility]IAN REPORT This is a preliminary report only, as the practitioner review and authentication has not occurred. Normal [facility] ER PHYSICIAN ASSESSMENT RECORDS : FlexChartData Event Time: 03/09/2021 05:05 Status: Signed [facility] Donnie Maldonado [[id number]] Mid-Level Chart (V2b) 2000 Chart created at 03/09/2021 04:58 by Suleiman Ashley Chart closed at 03/09/2021 05:23 Entry in Emergency Department at 03/08/2021 21:50 Patient Name: Donnie Maldonado Record Number: [id number] Date: 03/09/2021 04:58 Entered Department at: 03/08/2021 21:50 Patient Seen at: 03/09/2021 04:01 Historian: Patient PCP: [facility] Chief Complaint:Headache, denies migraines, fevers, body aches, neck soreness, near syncope Nursing triage/initial assessment reviewed and confirmed and Initial Vital Signs reviewed. Temperature: 99.2 F (37.3 C). Pulse: 110. Respiratory Rate: 18. Blood-pressure: 148/77. Oxygen Saturation: 97%. History of Present Illness: Patient is 20-year-old female who presents today with multiple complaints. She states that she has had some fever and body aches for the past 4 days. She states that she just does not feel well overall. She states that she is since developed a migraine which she has a history of migraines. States that it feels similar to her usual migraines. She does state that because she was not feeling well she felt that she [facility] PATIENT NAME: DONNIE MALDONADO [facility] [address]la MEDICAL REC #: [id number] [place] [address] EMERGENCY DEPARTMENT REPORT EMERGENCY DEPARTMENT PHYSICIAN could pass out. She denies any specific chest pain or shortness of breath. She does reports generally not feeling well. She does state that she received both of her her COVID-19 vaccines. She is not been around anyone else ill that she is aware of. HPI Elements: Onset: 4 ago; Timing: Gradual; Location: Body aches, headache; Quality: Aching; Severity: now [8] Associated symptoms: See HPI. Review of Systems. Constitutional: positive for Chills and Fever Neurological: positive for Headache All other systems reviewed and negative.. Past History, Medications, Allergies, Social History and Family History reviewed in nurses note. Medications: Reviewed RN Note. Allergies: Reviewed RN Note Zithromax(abdominal pain) Social History: Reviewed RN Note. Family History: Reviewed RN Note Physical Examination: General: Alert; Sitting up in bed in no acute distress HEENT: Normal ENT inspection. Eyes: Lids Normal; . Oropharynx / Throat: Normal Pharynx. Neck: No Lymphadenopathy, No Meningismus and Supple Respiratory: No Resp Distress and Normal Breath Sounds Cardio-Vascular: No murmur, No rub and RRR Abdomen: Non-tender and Soft; No rebound or guarding Back: No CVA tenderness, No Midline Tenderness and Non-tender Extremity: No edema Neurological: Alert, Oriented X3 and No Gross Weakness Skin: No rash, Warm and Dry Psychological: Mood/Affect Normal and Normal Memory/Judgment CBC W/DIFF, information as of 03/09/2021, 4:19 am 92.5 / 13.2 / 9.6 andgt;------andlt; 343 / 38.3 / [facility] PATIENT NAME: DONNIE MALDONADO [address] [facility] [address]la MEDICAL REC #: [id number] [place] [address] EMERGENCY DEPARTMENT REPORT EMERGENCY DEPARTMENT PHYSICIAN N:66.7 BASO ABS: 0.10 K/Cu Mm; BASOPHIL %: 0.5 %; EOS ABS: 0.40 K/Cu Mm; EOSINOPHIL %: 4.5 %; IMMATR GRAN ABS: 0.00 K/Cu Mm; IMMATURE GRAN %: 0.3 %; LYMPH %: 23.6 %; LYMPH ABS: 2.30 K/Cu Mm; MCHC: 34.5 Gm/Dl; MONO ABS: 0.40 K/Cu Mm; MONOCYTE %: 4.4 %; MPV: 8.0; NEUTROPHIL ABS: 6.40 K/Cu Mm; NRBC: 0.0 %; RBC: 4.14 M/Cu Mm; RDW: 12.9 BMP, information as of 03/09/2021, 4:19 am 136 --------+--------+--------andl t; 113* Anion Gap = 8 3.5 BUN/CREA: 20; CALCIUM TOTAL: 8.6 Mg/Dl TROPONIN I, information as of 03/09/2021, 4:19 am TROPONIN I: Less Than 2.5 Pg/Ml Cardiogram: Interpreted by me. Rate: 74 bpm. Rate NormalRhythm Sinus RhythmAxis NormalIntervals NormalQRS NormalST/T Non-Specific ST Changes Interpretation: Normal sinus rhythm non specific t wave abnormality Comparison: No old Cardiogram available for comparison Imaging Study Obtained: CHEST PA/AP LATERAL Direct patient care supervision and electronic documentation review by Olive Huggins on 03/09/2021 06:09. : Discharge Report Event Time: 03/09/2021 06:09 : FlexChartData Event Time: 03/09/2021 06:40 Status: Signed [facility] Donnie Maldonado [[id number]] Attending Physician 2000 Addendum (V2b) [facility] PATIENT NAME: DONNIE MALDONADO [address] [place] [address] Dr. Perla MEDICAL REC (more content not included)... Normal [facility] Harriet GFR ESTon 03-09-2021 IF AMER Greater than 60 Normal [facility] Comment on above: Order Comment: Campu s: M Performed By: #### L 500.65558, L500.43674, L500.88821 #### [facility] [address] [phone] IF non-AFR AMER Greater than 60 Normal [facility] Comment on above: Order Comment: Campu s: M Performed By: #### L 500.37954, L500.22684, L500.78077 #### [facility] [address] [place] [address] HCGon 03-09-2021 HCG SER RESULT Negative Normal NEGATIVE [facility] Comment on above: Order Comment: Kush Khan Performed By: #### L 500.80201, L500.84964, L500.12053 #### [facility] [address] [place] [address] TROPONIN Ion 03-09-2021 Troponin I.cardiac [Mass/Vol] 2.5 ng/mL Normal 0-34 [facility] Comment on above: Order Comment: Kush s: M Result Comment: NOTE NEW NORMAL RANGE DUE TO REAGENT CHANGE This assay uses different antibodies than our current assay, and assays, even by the same wellfield technician may recognize different regions of the antibody and cannot be used interchangeably. Expect results of this assay to run higher than the previous assay. Performed By: #### L 550.28698 #### [facility] [address] [place] [address] EKG 12 Leadon 01-26-2020 Darshan, [facility] Incoming Cardiology Results From [facility] - 01/26/2020 1:39 PM EDT [facility] [employer] [facility] Test Date: 2020-01-25 Pat Name: Donnie Maldonado Department: 01 Room: 15 Gender: F Sand Miller: WILLIAM : 2000 Requested By: HENRIK ABRAMS Order Number: [id number] Reading : Casey Ray Measurements Intervals [place] Rate: 89 P: 28 PA: 160 QRS: 73 QRSD: 88 T: -9 QT: 376 QTc: 458 Interpretive Statements SINUS RHYTHM NONSPECIFIC T ABNORMALITIES, ANTERIOR LEADS No previous ECG available for comparison Electronically Signed On 01-26-2020 13:38:30 EDT by Casey Ray [facility] Test Date: 2020-01-25 Pat Name: Donnie Maldonado Department: 01 Room: 15 Gender: F Sand Miller: WILLIAM : 2000 Requested By: HENRIK ABRAMS Order Number: [id number] Reading : Casey [place] Measurements Intervals [place] Rate: 89 P: 28 PA: 160 QRS: 73 QRSD: 88 T: -9 QT: 376 QTc: 458 Interpretive Statements SINUS RHYTHM NONSPECIFIC T ABNORMALITIES, ANTERIOR LEADS No previous ECG available for comparison Electronically Signed On 01-26-2020 13:38:30 EDT by Casey Ray [facility] Acetaminophenon 01-25-2020 Acetaminophen [Mass/Vol] < 10.0 Normal 10.0-30.0 [facility] Comment on above: Performed By: #### E TOH4, HEMOG, CMP3, SAL33, ACET4 #### [facility] [address] [place] [address] Acetaminophen Levelon 2019 Acetaminophen [Mass/Vol] <10.0 10 - 30 ug/mL [facility] COVID-19on 01-25-2020 SARS-CoV-2 Not Detected Expected Result: Not Detected _ Real-time, RT-PCR performed on the [employer] System by the [facility] Microbiology Service. Negative results do not preclude SARS-CoV-2 infection and should not be used as the sole basis for treatment or other patient management decisions. This assay was developed by [employer] and distributed under an Emergency Use Authorization (EUA) granted by the FDA for the qualitative detection of SARS-CoV-2 nucleic acid. [facility] YUNIER Test Performed by [facility], [address] [place] [address] Specimen Source Comment:Nasopharyngeal Swab [facility] Comp Metabolic Panelon 01-24 ALP [Catalytic activity/Vol] 76 U/L Normal 38-126 [facility] Comment on above: Performed By: #### E TOH4, HEMOG, CMP3, SAL33, ACET4 #### [facility] [address] [place] [address] ALT [Catalytic activity/Vol] 16 U/L Normal 0-34 [facility] Comment on above: Result Comment: The ALT test is performed by an updated assay method. Please note that the reference intervals have been changed and are now sex specific. Performed By: #### E TOH4, HEMOG, CMP3, SAL33, ACET4 #### [facility] [address] [place] [address] Anion gap [Moles/Vol] 11 Normal [facility] Comment on above: Performed By: #### E TOH4, HEMOG, CMP3, SAL33, ACET4 #### [facility] [address] [place] [address] AST [Catalytic activity/Vol] 18 U/L Normal 15-46 [facility] Comment on above: Performed By: #### E TOH4, HEMOG, CMP3, SAL33, ACET4 #### [facility] [address] [place] [address] Bilirubin [Mass/Vol] 0.2 mg/dL Normal 0.2-1.3 [facility] Comment on above: Performed By: #### E TOH4, HEMOG, CMP3, SAL33, ACET4 #### [facility] [address] [place] [address] Calcium [Mass/Vol] 8.7 mg/dL Normal 8.4-10.4 [facility] Comment on above: Performed By: #### E TOH4, HEMOG, CMP3, SAL33, ACET4 #### [facility] [address] [place] [address] CO2 [Moles/Vol] 20 mmol/L Low 22-30 [facility] Comment on above: Performed By: #### E TOH4, HEMOG, CMP3, SAL33, ACET4 #### [facility] [address] [place] [address] Creatinine [Mass/Vol] 0.68 mg/dL Normal 0.52-1.25 [facility] Comment on above: Performed By: #### E TOH4, HEMOG, CMP3, SAL33, ACET4 #### [facility] [address] [place] [address] GFR/1.73 sq M predicted among blacks MDRD (S/P/Bld) [Vol rate/Area] mL/min/{1.73_m2} Normal >60 [facility] Comment on above: Performed By: #### E TOH4, HEMOG, CMP3, SAL33, ACET4 #### [facility] [address] [place] [address] GFR/1.73 sq M predicted among non-blacks MDRD (S/P/Bld) [Vol rate/Area] mL/min/{1.73_m2} Normal >60 [facility] Comment on above: Result Comment: KDIG O guidelines provide the following GFR categories: Stage GFR(ml/min/1.73 m2) Terms G1 >=90 Normal or high G2 60-89 Mildly decreased* G3a 45-59 Mildly to moderately decreased G3b 30-44 Moderately to severely decreased G4 15-29 Severely decreased G5 <15 Kidney failure *Relative to young adult level. In the absence of evidence of kidney damage, neither GFR category G1 nor G2 fulfill the criteria for CKD. The CKD-EPI equation is validated in individuals 18 years of age and older. Currently the best equation for estimating glomerular filtration rate (GFR) from serum creatinine in children is the Bedside Cervantes equation. It is less accurate in patients with extremes of muscle mass, restriction of dietary protein, ingestion of creatine, extra-renal metabolism of creatinine, or treatment with medications that affect renal tubular creatinine secretion. Performed By: #### E TOH4, HEMOG, CMP3, SAL33, ACET4 #### [facility] [address] [facility] [place] [address] Glucose [Mass/Vol] 96 mg/dL Normal 70-100 [facility] Comment on above: Performed By: #### E TOH4, HEMOG, CMP3, SAL33, ACET4 #### [facility] [address] [place] [address] Protein [Mass/Vol] 7.2 g/dL Normal 6.3-8.2 [facility] Comment on above: Performed By: #### E TOH4, HEMOG, CMP3, SAL33, ACET4 #### [facility] [address] [facility] [place] [address] Urea nitrogen [Mass/Vol] 10 mg/dL Normal 7-20 [facility] Comment on above: Performed By: #### E TOH4, HEMOG, CMP3, SAL33, ACET4 #### [facility] [address] [place] [address] Potassium [Moles/Vol] 4.1 mmol/L Normal 3.5-5.1 [facility] Comment on above: Performed By: #### E TOH4, HEMOG, CMP3, SAL33, ACET4 #### [facility] [address] [place] [address] Albumin [Mass/Vol] 4.3 g/dL Normal 3.5-5.0 [facility] Comment on above: Performed By: #### E TOH4, HEMOG, CMP3, SAL33, ACET4 #### [facility] [address] [place] [address] Chloride [Moles/Vol] 109 mmol/L High 98-107 [facility] Comment on above: Performed By: #### E TOH4, HEMOG, CMP3, SAL33, ACET4 #### [facility] [address] [place] [address] Sodium [Moles/Vol] 140 mmol/L Normal 135-145 [facility] Comment on above: Performed By: #### E TOH4, HEMOG, CMP3, SAL33, ACET4 #### [facility] [address] [place] [address] Complete Urinalysison 2019 Appearance (U) Turbid Abnormal Clear [facility] Comment on above: Result Comment: . Performed By: #### D RGA4, HCGUR, CUA2 #### [facility] [address] [place] [address] Bacteria LM.HPF (Urine sed) [#/Area] Many Abnormal Negative [facility] Comment on above: Result Comment: . Performed By: #### D RGA4, HCGUR, CUA2 #### [facility] [address] [place] [address] Bilirubin,Urine Negative Normal Negative [facility] Comment on above: Result Comment: . Performed By: #### D RGA4, HCGUR, CUA2 #### [facility] [address] [place] [address] Color (U) Yellow Normal Lt. Yellow [facility] Comment on above: Result Comment: . Performed By: #### D RGA4, HCGUR, CUA2 #### [facility] [address] [place] [address] Glucose Ql (U) Normal Normal Normal (<70) [facility] Comment on above: Result Comment: . Performed By: #### D RGA4, HCGUR, CUA2 #### [facility] [address] [place] [address] Ketone,Urine Negative Normal Negative [facility] Comment on above: Result Comment: . Performed By: #### D RGA4, HCGUR, CUA2 #### [facility] [address] [place] [address] Leukocytes,Urine Negative Normal Negative [facility] Comment on above: Result Comment: . Performed By: #### D RGA4, HCGUR, CUA2 #### [facility] [address] [place] [address] Mucous Threads Few Normal Negative [facility] Comment on above: Result Comment: . Performed By: #### D RGA4, HCGUR, CUA2 #### [facility] [address] [place] [address] Nitrites,Urine Negative Normal Negative [facility] Comment on above: Result Comment: . Performed By: #### D RGA4, HCGUR, CUA2 #### [facility] [address] [place] [address] Occult Blood,Urine > 1.0 Abnormal Negative [facility] Comment on above: Result Comment: . Performed By: #### D RGA4, HCGUR, CUA2 #### [facility] [address] [place] [address] pH (U) 5.5 Normal 5.0-8.0 [facility] Comment on above: Result Comment: . Performed By: #### D RGA4, HCGUR, CUA2 #### [facility] [address] [place] [address] Protein (U) [Mass/Vol] 10 mg/dL Abnormal Negative [facility] Comment on above: Result Comment: . Performed By: #### D RGA4, HCGUR, CUA2 #### [facility] [address] [place] [address] RBC LM.HPF (Urine sed) [#/Area] /[HPF] Abnormal 0-2 [facility] Comment on above: Result Comment: . Performed By: #### D RGA4, HCGUR, CUA2 #### [facility] [address] [place] [address] Specific [place],Urine 1.024 Normal 1.005 - 1.030 [facility] Comment on above: Result Comment: . Performed By: #### D RGA4, HCGUR, CUA2 #### [facility] [address] [place] [address] Squamous Epithelial 11 - 25 Abnormal 3-5 [facility] Comment on above: Result Comment: . Performed By: #### D RGA4, HCGUR, CUA2 #### [facility] [address] [place] [address] Urobilinogen,Urine Normal Normal Normal (0-1) [facility] Comment on above: Result Comment: . Performed By: #### D RGA4, HCGUR, CUA2 #### [facility] [address] [place] [address] WBC LM.HPF (Urine sed) [#/Area] 0 - 2 Normal 0-5 [facility] Comment on above: Result Comment: . Performed By: #### D RGA4, HCGUR, CUA2 #### [facility] [address] [place] [address] Comprehensive Metabolic Pane corwin 01-25-2020 Albumin [Mass/Vol] 4.3 g/dL 3.5 - 5 g/dL [place] ALP [Catalytic activity/Vol] 76 U/L 38 - 126 U/L [place] ALT [Catalytic activity/Vol] 16 U/L 0 - 34 U/L [place] Comment on above: The ALT test is perf ormed by an updated assay method. Please note that the reference intervals have been changed and are now sex specific. Anion gap [Moles/Vol] 11 mmol/L [place] AST [Catalytic activity/Vol] 18 U/L 15 - 46 U/L [place] Bilirubin Ql (U) 0.2 mg/dL 0.2 - 1.3 mg/dL [place] Calcium [Mass/Vol] 8.7 mg/dL 8.4 - 10. 4 mg/dL [place] Chloride [Moles/Vol] 109 mmol/L High 98 - 107 mmol/L [place] CO2 [Moles/Vol] 20 mmol/L Low 22 - 30 mmol/L [place] Creatinine [Mass/Vol] 0.68 mg/dL 0.52 - 1.25 mg/dL [place] EGFR IF NonAfrican Nigerien >90.0 >60 mL/min [place] Comment on above: KDIGO guidelines pro vide the following GFR categories: Stage GFR(ml/min/1.73 m2) Terms G1 >=90 Normal or high G2 60-89 Mildly decreased* G3a 45-59 Mildly to moderately decreased G3b 30-44 Moderately to severely decreased G4 15-29 Severely decreased G5 <15 Kidney failure *Relative to young adult level. In the absence of evidence of kidney damage, neither GFR category G1 nor G2 fulfill the criteria for CKD. The CKD-EPI equation is validated in individuals 18 years of age and older. Currently the best equation for estimating glomerular filtration rate (GFR) from serum creatinine in children is the Bedside Cervantes equation. It is less accurate in patients with extremes of muscle mass, restriction of dietary protein, ingestion of creatine, extra-renal metabolism of creatinine, or treatment with medications that affect renal tubular creatinine secretion. GFR/1.73 sq M predicted among blacks MDRD (S/P/Bld) [Vol rate/Area] mL/min/{1.73_m2} >60 mL/min [place] Glucose [Mass/Vol] 96 mg/dL 70 - 100 mg/dL [place] Interpretation and review of laboratory results Abnormal [place] Potassium [Moles/Vol] 4.1 mmol/L 3.5 - 5.1 mmol/L [place] Protein [Mass/Vol] 7.2 g/dL 6.3 - 8.2 g/dL [place] Sodium [Moles/Vol] 140 mmol/L 135 - 145 mmol/L [place] Urea nitrogen [Mass/Vol] 10 mg/dL 7 - 20 mg/dL [place] Drugs of Abuseon 01-25-2020 Phencyclidine (PCP), Ur Negative Normal [facility] Comment on above: Result Comment: The expected value for all of the drugs listed above is Negative. The following drugs or drug groups have been screened for by Immunoassay at the following thresholds: Amphetamine class (1000 ng/mL), Barbiturates (200 ng/mL), Benzodiazepines (200 ng/mL), Cocaine (300 ng/mL), Methadone (300 ng/mL), Opiates (300 ng/mL), Oxycodone (100 ng/mL), and PCP (25 ng/mL). NOTE: These results are for medical treatment only. Analysis performed using non-forensic procedures. POSITIVE results are NOT confirmed by a more specific alternative method unless requested. If confirmation is needed, request confirmation under separate order. Performed By: #### D RGA4, HCGUR, CUA2 #### [facility] [address] [place] [address] Cocaine, Ur Negative Normal [facility] Comment on above: Performed By: #### D RGA4, HCGUR, CUA2 #### [facility] [address] [place] [address] Methadone, Ur Negative Normal [facility] Comment on above: Performed By: #### D RGA4, HCGUR, CUA2 #### [facility] [address] [place] [address] Opiates, Ur Negative Normal [facility] Comment on above: Performed By: #### D RGA4, HCGUR, CUA2 #### [facility] [address] [place] [address] Amphetamines, Ur Negative Normal [facility] Comment on above: Performed By: #### D RGA4, HCGUR, CUA2 #### [facility] [address] [place] [address] Benzodiazepines, Ur Negative Normal [facility] Comment on above: Performed By: #### D RGA4, HCGUR, CUA2 #### [facility] [address] [place] [address] Barbiturates, Ur Negative Normal [facility] Comment on above: Performed By: #### D RGA4, HCGUR, CUA2 #### [facility] [address] [place] [address] Oxycodone/Oxymorph ine,Ur Negative Normal [facility] Comment on above: Performed By: #### D RGA4, HCGUR, CUA2 #### [facility] [address] [place] [address] Ethanolon 01-25-2020 Ethanol Lvl <0.010 0 - 0.01 g/dL [place] Comment on above: NOTE: This result is for medical treatment only. Analysis performed using non-forensic procedures. Ethanol Serum/Plasmaon 01-24 Ethanol-Serum/Plas ma < 0.010 Normal 0.000-0.01 0 [facility] Comment on above: Result Comment: NOTE : This result is for medical treatment only. Analysis performed using non-forensic procedures. Performed By: #### E TOH4, HEMOG, CMP3, SAL33, ACET4 #### [facility] [address] [place] [address] HCG,Urine Qualon 01-25-2020 Beta HCG ( test) Ql (U) Negative Normal Negative [facility] Comment on above: Result Comment: Preg pérez is the most common reason for HCG in urine, although choriocarcinoma, hydatidiform mole, and certain nontropho- blastic malignancies also result in detectable urinary HCG levels. Sensitivity = 20mIU/mL. Performed By: #### D RGA4, HCGUR, CUA2 #### [facility] [address] [place] [address] HGC Urine Qual Pregon 2019 Beta HCG ( test) Ql (U) Negative Negative NA [place] Comment on above: is the mos t common reason for HCG in urine, although choriocarcinoma, hydatidiform mole, and certain nontropho- blastic malignancies also result in detectable urinary HCG levels. Sensitivity = 20mIU/mL. Test Performed by [facility], [address] [place] [address] [place] Hemogramon 01-25-2020 Erythrocyte distribution width (RBC) [Ratio] 12.8 % Normal 11.5-14.5 [facility] Comment on above: Performed By: #### E TOH4, HEMOG, CMP3, SAL33, ACET4 #### [facility] [address] [place] [address] Hematocrit (Bld) [Volume fraction] 41.5 % Normal 35.0-47.0 [facility] Comment on above: Performed By: #### E TOH4, HEMOG, CMP3, SAL33, ACET4 #### [facility] [address] [place] [id number] Hemoglobin (Bld) [Mass/Vol] 14.3 g/dL Normal 11.7-16.0 [facility] Comment on above: Performed By: #### E TOH4, HEMOG, CMP3, SAL33, ACET4 #### [facility] [address] [place] [id number] MCH (RBC) [Entitic mass] 31.1 pg Normal 26.0-34.0 [facility] Comment on above: Performed By: #### E TOH4, HEMOG, CMP3, SAL33, ACET4 #### [facility] [address] [place] [id number] MCHC (RBC) [Mass/Vol] 34.5 % Normal 32.0-36.0 [facility] Comment on above: Performed By: #### E TOH4, HEMOG, CMP3, SAL33, ACET4 #### [facility] [address] [place] [address] MCV (RBC) [Entitic vol] 90.4 fL Normal 79.0-98.0 [facility] Comment on above: Performed By: #### E TOH4, HEMOG, CMP3, SAL33, ACET4 #### [facility] [address] [place] [id number] Platelet mean volume (Bld) [Entitic vol] 6.3 fL Low 7.4-10.4 [facility] Comment on above: Performed By: #### E TOH4, HEMOG, CMP3, SAL33, ACET4 #### [facility] [address] [place] [id number] Platelets (Bld) [#/Vol] 372 10*3/uL Normal 140-440 [facility] Comment on above: Performed By: #### E TOH4, HEMOG, CMP3, SAL33, ACET4 #### [facility] [address] [place] [address] RBC (Bld) [#/Vol] 4.60 10*6/uL Normal 3.80-5.20 [facility] Comment on above: Performed By: #### E TOH4, HEMOG, CMP3, SAL33, ACET4 #### [facility] [address] [place] [address] WBC (Bld) [#/Vol] 6.6 10*3/uL Normal 3.6-10.7 [facility] Comment on above: Performed By: #### E TOH4, HEMOG, CMP3, SAL33, ACET4 #### [facility] [address] [place] [address] Hemogram (CBC)on 01-25-2020 Erythrocyte distribution width (RBC) [Ratio] 12.8 % 11.5 - 14.5 % [place] Hematocrit (Bld) [Volume fraction] 41.5 % 35 - 47 % [place] Hemoglobin (Bld) [Mass/Vol] 14.3 g/dL 11.7 - 16 g/dL [place] Interpretation and review of laboratory results Abnormal [place] MCH (RBC) [Entitic mass] 31.1 pg 26 - 34 pg [place] MCHC (RBC) [Mass/Vol] 34.5 % 32 - 36 % [place] MCV (RBC) [Entitic vol] 90.4 fL 79 - 98 fL [place] Platelet mean volume (Bld) [Entitic vol] 6.3 fL Low 7.4 - 10.4 fL [place] Platelets (Bld) [#/Vol] 372 10*3/uL 140 - 440 10*3/uL [place] RBC (Bld) [#/Vol] 4.60 10*6/uL 3.8 - 5.2 10*6/uL [place] WBC (Bld) [#/Vol] 6.6 10*3/uL 3.6 - 10.7 10*3/uL [place] Test Performed by [facility], [address] [place] [address] [place] Otheron 01-25-2020 Test Performed by [facility], [address] [place] [address] [place] [id number] 01-25-2020 SARS-CoV-2 SARS-CoV-2 --> Statu s: F Not Detected Expected Result: Not Detected _ Real-time, RT-PCR performed on the [employer] System by the [facility]. Negative results do not preclude SARS-CoV-2 infection and should not be used as the sole basis for treatment or other patient management decisions. This assay was developed by [employer] and distributed under an Emergency Use Authorization (EUA) granted by the FDA for the qualitative detection of SARS-CoV-2 nucleic acid. Expected Result: Not Detected _ Real-time, RT-PCR performed on the [employer] System by the [facility]. Negative results do not preclude SARS-CoV-2 infection and should not be used as the sole basis for treatment or other patient management decisions. This assay was developed by [employer] and distributed under an Emergency Use Authorization (EUA) granted by the FDA for the qualitative detection of SARS-CoV-2 nucleic acid. Normal [facility] Comment on above: Order Comment: Speci men Source Comment:Nasopharyngeal Swab Performed By: #### C OVID #### [facility] [address] [place] [address] Salicylateon 01-25-2020 Salicylate Lvl <1.0 0 - 20 mg/dL [place] Salicylateson 01-25-2020 Salicylates < 1.0 Normal 0.0-20.0 [facility] Comment on above: Performed By: #### E TOH4, HEMOG, CMP3, SAL33, ACET4 #### [facility] [address] [place] [address] Urinalysison 01-25-2020 Appearance (U) Turbid Abnormal Clear NA [place] Comment on above: . Bacteria, UA Many Abnormal Negative /[HPF] [place] Comment on above: . Bilirubin Urine Negative Negative mg/dL [place] Comment on above: . Color (U) Yellow Lt. Yellow NA [place] Comment on above: . Glucose, Ur Normal Normal (<70) mg/dL [place] Comment on above: . Interpretation and review of laboratory results Abnormal [place] Ketones Ql (U) Negative Negative mg/dL [place] Comment on above: . LEUKOCYTES, UA Negative Negative Nelson/uL [place] Comment on above: . Mucous Threads Few Negative /[LPF] [place] Comment on above: . Nitrite, Urine Negative Negative NA [place] Comment on above: . Occult Blood,Urine >1.0 Abnormal Negative mg/dL [place] Comment on above: . pH (U) 5.5 [pH] [place] Comment on above: . Protein (U) [Mass/Vol] 10 mg/dL Abnormal Negative [place] Comment on above: . RBC (U) [#/Vol] /uL Abnormal 0 - 2 /[HPF] [place] Comment on above: . Specific [place], Urine 1.024 [place] Comment on above: . Squam Epithel, UA 11-25 Abnormal 3 - 5 /[HPF] [place] Comment on above: . Urobilinogen, Urine Normal Normal (0-1) mg/dL [place] Comment on above: . WBC, UA 0-2 0 - 5 /[HPF] [place] Comment on above: . Test Performed by [facility], [address], [place], [place] [address] [place] Urine Drug Screenon 01-25-20 20 Amphetamines, urine Negative [place] Barbiturates, Ur Negative [place] Benzodiazepine Ur Qual Negative [place] Cocaine Metabolites, Ur Negative [place] Methadone, Urine Negative [place] Opiates, Urine Negative [place] Oxycodone Screen, Ur Negative [place] PCP, Urine Negative [place] Comment on above: The expected value f or all of the drugs listed above is Negative. The following drugs or drug groups have been screened for by Immunoassay at the following thresholds: Amphetamine class (1000 ng/mL), Barbiturates (200 ng/mL), Benzodiazepines (200 ng/mL), Cocaine (300 ng/mL), Methadone (300 ng/mL), Opiates (300 ng/mL), Oxycodone (100 ng/mL), and PCP (25 ng/mL). NOTE: These results are for medical treatment only. Analysis performed using non-forensic procedures. POSITIVE results are NOT confirmed by a more specific alternative method unless requested. If confirmation is needed, request confirmation under separate order. Test Performed by [facility], [address], [place], [place] [address] [facility], [place] Progress Noteon 2018 [employer] Authentication Interface Message Text Donnie is a 18 yrs old female brought by her mother for follow up of NonEpileptic spells and Episodic migraine like headache.Last seen in 09/2017 when my advice was:Spells:1. Continue follow up with Psychiatry/ Anil/ councellor2. Encourage meditation/ relaxation/ YogaHeadache:1. Lifestyle advice reinforced2. Continue Topamax 50 mg po bid3. Rescue: Rest, ice packs, dark room, 2 of Aleve 220 mg Along with [id number] mg po prn headache, max 2 times/ week4. Headache psychology referral5. Follow up in 4 monthsInterim history on 03/24/18:Headache : continues to have 3 headaches/ weekAgain reports tension type: few times/ week, mostly mild. Ibuprofen helpsMigrainous 1 in 2 weeks: sleep and ice pack helps. Takes Excedrin migraineOn Topamax 50 mg po bidRescue: Excedrin migraine >> ImitrexDrug tolerance: good. No tingling/ numbness.Anxiety has been worse. She has been on Fluoxetine and Seroquel , but reportssymptoms have not been well controlled. Mother reports child psychiatrist wouldnot see her and she does not have any other psychiatrist yet.Now has an upcoming appointment with Dr. Anil Joaquin psychology recommended follow with Dr. Terrell or Headache psyhcologySpells:1 moreFollows with ChelseaInterim history on 09/26/17:Now headache :Again reports tension type: few times/ week, mostly mild.Migrainous 1 in 2 weeks: sleep and ice pack helps. Takes Excedrin migraineOn Topamax 50 mg po bidRescue: Excedrin migraine >> ImitrexDrug tolerance: good. No tingling/ numbness.Reports that anxiety is worse.Now has an upcoming appointment with Anil.Interim history on 12/15/16:Spells:Resolved.EMU was normal.Regularly followed by Psychiatry, counsellor and Dr. Terrell for Non EpilepsticspellsHeadache:Heada ches have improved. 1/ week, still intense.Nature: nauseous. Frontal, pounding, light and sound sensitive.On Topamax 50 mg bid. Stopped taking Mag and B2 about 2months ago.Medication tolerance: well. No tingling. Not drinking enough in water. No bloodin urine.Rescue: Takes Ibuprofen 800 mg, which helps. Tried Naproxen, works only if shegets to sleep. Interim history on 06/16/2016:Spells:Evaluated And followed by Anil Terrell for Non Epileptic spells. Motherreports no improvement in spells.Spell: She is staring, non responsive, duration is few minutes ( 2 minutes).Her vision goes black. She is aware of spells. No twitching. Afterwards she isspaced out and quiet for about 30 minutes. .She still reports atleast 1 spell/ week.Headache:Reports new onset, frequent, squeezing, frontal headache without light or soundsensitivity for few months.Per my advice, she took a course of steroids , starting on 05/14/2016. She wasstarted on Magnesium oxide 400 gm and Riboflavin 400 mg.She still reports getting headache 3-4 times/ week.Followed by by Psychiatry, councellling and Anil for anxiety and depression.HPI during visit in 11/2015:She was admitted in the hospital on 10/11/15.15 years old female with h/o anxiety, depression, blackout spells ( evaluatedby cardiology in the past, including Holter monitor), who got admitted after aspell concerning for seizure vs stroke like phenomena .Details of episode in original H and P from 10/11/15. ? Facial droop noted in ED but normal exam at floor.Normal general and neurologic examination during admission.During the exam, patient stated that she again has a spell and feels weird.She was not able to squeeze eyelids tight on command during this spell butquickly responded with a sudden forceful blink when I approached her from sideof vision with a rapidly moving hand. Also glanced all over to right when hearda loud sound but quickly assumed the role of feeling weird and weak.I had a concern for psychosomatic symptoms.She had a normal cbc, cmp, coagulation labs, salicylate, acetaminophen and comapanelShe had a normal CT Head and Brain MRI .She was discharged home with the following advice:- strongly recommend following with established Psychologist and Psychiatrist asoutpatient- Follow with cardiology in syncope clinic- will schedule outpatient EEG and neurology follow upInterim history on 11/19/15:Outpatient EEG was normalNormal Holter per motherPsychiatry ( at [facility]) is titrating medications for Depression 3 episodes since discharge, all similar.First episode: she went upstairs to grab something, She started holding on todresser and door and shaking. Eyes were open. Duration about few minutes. Noincontinence. No foaming. No tongue biting.Last episode: 3 days ago.No obvious trigger.Followed by outpatient PsychologyReview of systems:Constitutional: No fever, no weight loss. No change in appetite.Respiratory: No cough, no difficulty breathing. No wheezing.GI: No nausea, no vomiting, no diarrhea.Skin: No rashes.Hematologic: No bleeding or clotting problems.Allergy/immunology: No recurrent infections.Neurologic: headache No staring spells, no seizures, no sleep disturbances.Eyes: No vision changes. No blurry vision.ENT: No earache. No throat pain. No neck pain.Cardiovascular: No chest pain, no palpitations. history: bleeding. FT . No complications.Developmental history: age [id number] grade, doing well.Past Medical History:Diagnosis Date Anxiety Anxiety state 05/14/2015 Concussion 04/2015 Depression Depressive disorder 05/14/2015 Memory difficulty Seizures Sees Dr. Torres. Not on medication for seizures.Past surgical history:Past Surgical History:Procedure Laterality Date COLONOSCOPY ESOPHAGOSCOPY N/A 12/02/2015 ENDOSCOPY (UPPER AND COLONOSCOPY) with biopsies performed by Marvin Davidson MD at [facility] OR LEG SURGERY august, plates for bow legs LEG SURGERY august 2006 removed plates TONSILLECTOMY AND ADENOIDECTOMYFamily history:Seizures: MGM had seizures as an adultHeadaches: motherFather has Conversion DisorderSarcoidosis in father and possibly PGFNo autoimmune illnessDevelopmental: noneNo autism/ ADHDSocial history:Taking a break between school and college due to anxiety. Lives with biologicparentsAllergiesAllerg en Reactions Zithromax [Azithromycin] Other (See Comments) Stomach pains and diarrheaCurrent Outpatient Prescriptions on File Prior to VisitMedication Sig Dispense Refill topiramate (TOPAMAX) 50 MG tablet take 1 tablet by mouth twice a day 60 Tab 5 SUMAtriptan Succinate (IMITREX) 100 MG tablet Take 1 Tab (100 mg) by mouth asneeded (headache) for up to 9 doses 9 Tab 5 SEROQUEL XR 50 MG XR tablet 0 FLUoxetine (PROZAC) 20 MG capsule 0 FLUoxetine (PROZAC) 10 MG capsule 0 predniSONE (DELTASONE) 10 MG tablet See notes to pharmacy 42 Tab 0 Cholecalciferol (VITAMIN D-3 PO)Take 7,000 Units by mouth nightly at bedtime Pt takes 50,000 units per weekNo current facility-administered medications on file prior to visit.EXAMINATION:Vitals: 03/24/18 1044BP: 124/66Pulse: 87Temp: 37.1 C (98.8 F)Wt Readings from Last 3 Encounters:03/24/18 (!) 114.6 kg (>99 %, Z= 2.54)*09/26/17 (!) 110.3 kg (>99 %, Z= 2.44)*12/15/16 98.1 kg (98 %, Z= 2.16) Growth percentiles are based on CDC 2-20 Years data.Ht Readings from Last 3 Encounters:03/24/18 167 cm (71 %, Z= 0.57)*09/26/17 166.1 cm (67 %, Z= 0.43)*12/15/16 167.9 cm (77 %, Z= 0.72) Growth percentiles are based on CDC 2-20 Years data.Body mass index is 41.09 kg/m .Facility age limit for growth percentiles is 20 years.Facility age limit for growth percentiles is 20 years.Facility age limit for growth percentiles is 20 years.GENERAL EXAMINATION:Awake and alert. Average built and nutrition.HEENT: normocephalic, atraumatic. Moist mucous membranesChest: b/l CTACVS: S1, S2 nlAbdomen: soft, nontender, nondistendedSkin: No neurocutaneous markers or rashesSpine: midline. No tuft of hair/ sacral dimple/ lumpNEUROLOGIC EXAMINATIONMENTAL STATUS: Awake, alert and oriented to person, place and time. Cooperativewith normal comprehension and fluent speech.CRANIAL NERVES:No deficit.MOTOR: Normal muscle bulk, strength and tone. No adventitious movements.REFLEXES: Deep tendon reflexes 2+ and symmetric. Plantar responses flexor. Nopathological reflexes.SENSORY: Intact to light touch, vibration, temperature and proprioception.COORDINATION: No tremor or abnormal movement.DIAGNOSTICS:EE10/14/15: INTERPRETATION: This is a normal awake and asleep EEG. Nospells were seen.CT head and MRI Brain: 10/11/15: NormalEMU: 06/28/16 to 06/30/16:INTERPRETATION: During 44 hours and 55 minutes of continuousdigital EEG/Video monitoring with scalp electrodes, the EEG wasnormal. There were no concerning events captured and noepileptiform discharges were noted throughout the recording. Incomparison to previous EEGs, this study is also normal. Theintermittent theta bursts were also present on her priorrecording. Clinical correlation is recommended.1. Chronic tension-type headache, intractable Magnesium Oxide (MAG OX) 400(241.3 Mg) MG TABS tablet Riboflavin 400 MG CAPS topiramate (TOPAMAX) 50 MG tablet2. Migraine without aura and without status migrainosus, not intractabletopiramate (TOPAMAX) 50 MG tablet3. Other depression4. Convulsions, unspecified convulsion type5. Anxiety stateASSESSMENT:18 years old female with h/o anxiety, depression and Non Epileptic spells (fairly controlled now). She has tension type and episodic migraine likeheadache.Endorses poor control of anxiety, depression; which is likely responsible forpoor control of tension type headaches.Migraines are fairly well controlled on Topamax .Again discussed about the Explained The increased risk of Serotonin syndromedue to Serotonin enhancing effect of Prozac and Imitrex. We agree to discontinueImitrex as mostly headaches are tension type.PLAN:Spells:1. Continue follow up with Psychiatry/ Anil/ councellor2. Encourage meditation/ relaxation/ YogaTension type Headache, and episodic migraine without aura:1. Lifestyle advice reinforced2. Continue Topamax 50 mg po bid. Restart Magnesium oxide 400mg and Vitamin [id number]. Vitamin D 2000 units po daily3. Rescue: Rest, ice packs, dark room, 2 of Aleve 220 mg with 50 mg benadryl .Discontinue Imitrex due to risk for Serotonin syndrome, and migraines mostlyunder control4. Follow up in 4 monthsAnxiety and Depression:1. Recommend finding an adult psychiatrist Normal [facility] Progress Noteon 09-26-2017 [employer] Operator Authentication Interface Message Text Donnie is an 16 yrs old female brought by her mother for follow up of NonEpileptic spells and Episodic migraine like headache.Last seen in 12/2016 when my advice was:Spells:1. Continue follow up with Psychiatry/ Anil/ councellor2. Encourage meditation/ relaxation/ YogaHeadache:1. Lifestyle advice reinforced2. Continue Topamax 50 mg po bid3. Rescue: Rest, ice packs, dark room, 2 of Aleve 220 mg Along with [id number] mg po prn headache, max 2 times/ week4. Follow up in 4 monthsInterim history on 09/26/17:Now headache :Again reports tension type: few times/ week, mostly mild.Migrainous 1 in 2 weeks: sleep and ice pack helps. Takes Excedrin migraineOn Topamax 50 mg po bidRescue: Excedrin migraine >> ImitrexDrug tolerance: good. No tingling/ numbness.Reports that anxiety is worse.Now has an upcoming appointment with Anil.Interim history on 12/15/16:Spells:Resolved.EMU was normal.Regularly followed by Psychiatry, counsellor and Dr. Terrell for Non EpilepsticspellsHeadache:Heada ches have improved. 1/ week, still intense.Nature: nauseous. Frontal, pounding, light and sound sensitive.On Topamax 50 mg bid. Stopped taking Mag and B2 about 2months ago.Medication tolerance: well. No tingling. Not drinking enough in water. No bloodin urine.Rescue: Takes Ibuprofen 800 mg, which helps. Tried Naproxen, works only if shegets to sleep. Interim history on 06/16/2016:Spells:Evaluated And followed by Anil Terrell for Non Epileptic spells. Motherreports no improvement in spells.Spell: She is staring, non responsive, duration is few minutes ( 2 minutes).Her vision goes black. She is aware of spells. No twitching. Afterwards she isspaced out and quiet for about 30 minutes. .She still reports atleast 1 spell/ week.Headache:Reports new onset, frequent, squeezing, frontal headache without light or soundsensitivity for few months.Per my advice, she took a course of steroids , starting on 05/14/2016. She wasstarted on Magnesium oxide 400 gm and Riboflavin 400 mg.She still reports getting headache 3-4 times/ week.Followed by by Psychiatry, councellling and Anil for anxiety and depression.HPI during visit in 11/2015:She was admitted in the hospital on 10/11/15.15 years old female with h/o anxiety, depression, blackout spells ( evaluatedby cardiology in the past, including Holter monitor), who got admitted after aspell concerning for seizure vs stroke like phenomena .Details of episode in original H and P from 10/11/15. ? Facial droop noted in ED but normal exam at floor.Normal general and neurologic examination during admission.During the exam, patient stated that she again has a spell and feels weird.She was not able to squeeze eyelids tight on command during this spell butquickly responded with a sudden forceful blink when I approached her from sideof vision with a rapidly moving hand. Also glanced all over to right when hearda loud sound but quickly assumed the role of feeling weird and weak.I had a concern for psychosomatic symptoms.She had a normal cbc, cmp, coagulation labs, salicylate, acetaminophen and comapanelShe had a normal CT Head and Brain MRI .She was discharged home with the following advice:- strongly recommend following with established Psychologist and Psychiatrist asoutpatient- Follow with cardiology in syncope clinic- will schedule outpatient EEG and neurology follow upInterim history on 11/19/15:Outpatient EEG was normalNormal Holter per motherPsychiatry ( at [facility]) is titrating medications for Depression 3 episodes since discharge, all similar.First episode: she went upstairs to grab something, She started holding on todresser and door and shaking. Eyes were open. Duration about few minutes. Noincontinence. No foaming. No tongue biting.Last episode: 3 days ago.No obvious trigger.Followed by outpatient PsychologyReview of systems:Constitutional: No fever, no weight loss. No change in appetite.Respiratory: No cough, no difficulty breathing. No wheezing.GI: No nausea, no vomiting, no diarrhea.Skin: No rashes.Hematologic: No bleeding or clotting problems.Allergy/immunology: No recurrent infections.Neurologic: headache No staring spells, no seizures, no sleep disturbances.Eyes: No vision changes. No blurry vision.ENT: No earache. No throat pain. No neck pain.Cardiovascular: No chest pain, no palpitations. history: bleeding. FT . No complications.Developmental history: age [id number] grade, doing well.Past Medical History:Diagnosis Date Anxiety Anxiety state 05/14/2015 Concussion 04/2015 Depression Depressive disorder 05/14/2015 Memory difficulty Seizures Sees Dr. Torres. Not on medication for seizures.Past surgical history:Past Surgical History:Procedure Laterality Date COLONOSCOPY ESOPHAGOSCOPY N/A 12/02/2015 ENDOSCOPY (UPPER AND COLONOSCOPY) with biopsies performed by Marvin Davidson MD at [facility] OR LEG SURGERY august, plates for bow legs LEG SURGERY august 2006 removed plates TONSILLECTOMY AND ADENOIDECTOMYFamily history:Seizures: MGM had seizures as an adultHeadaches: motherFather has Conversion DisorderSarcoidosis in father and possibly PGFNo autoimmune illnessDevelopmental: noneNo autism/ ADHDSocial history:Taking a break between school and college due to anxiety. Lives with biologicparentsAllergiesAllerg en Reactions Zithromax [Azithromycin] Other (See Comments) Stomach pains and diarrheaCurrent Outpatient Prescriptions on File Prior to VisitMedication Sig Dispense Refill topiramate (TOPAMAX) 50 MG tablet take 1 tablet by mouth twice a day 60 Tab 3 SUMAtriptan Succinate (IMITREX) 100 MG tablet Take 1 Tab (100 mg) by mouth asneeded (headache) for up to 9 doses 9 Tab 5 Magnesium 500 MG TABS Take 500 mg by mouth daily (with breakfast) Naproxen Sodium (ALEVE) 220 MG TABS tablet Take 440 mg by mouth as needed forPain (headache) Riboflavin (B-2) 100 MG TABS Take 400 mg by mouth daily (with breakfast) SEROQUEL XR 50 MG XR tablet 0 FLUoxetine (PROZAC) 20 MG capsule 0 FLUoxetine (PROZAC) 10 MG capsule 0 predniSONE (DELTASONE) 10 MG tablet See notes to pharmacy 42 Tab 0 sertraline (ZOLOFT) 50 MG tablet Take 75 mg by mouth daily diphenhydrAMINE (BENADRYL) 25 MG TABS tabletTake 25 mg by mouth nightly at bedtime Indications: Trouble Sleeping omeprazole (PRILOSEC) 10 MG capsuleTake 10 mg by mouth 2 times daily venlafaxine (EFFEXOR-XR) 75 MG XR capsuleTake 37.5 mg by mouth Pt received 150mg on 12/22/15 @[facility] per mother pt was to beweaned mother thinks dose should be 75 mg but paperwork from the doctor says37.5 mg Indications: patirnt only taking medication for one week, weaning Melatonin 5 MG CAPSTake by mouth as needed Cholecalciferol (VITAMIN D-3 PO)Take 7,000 Units by mouth nightly at bedtime Pt takes 50,000 units per weekNo current facility-administered medications on file prior to visit.EXAMINATION:Vitals: 09/26/17 1524BP: 135/59Pulse: 85Temp: 36.3 C (97.3 F)Wt Readings from Last 3 Encounters:09/26/17 (!) 110.3 kg (>99 %, Z > 2.33)*12/15/16 98.1 kg (98 %, Z= 2.16)*06/28/16 94.1 kg (98 %, Z= 2.07) Growth percentiles are based on CDC 2-20 Years data.Ht Readings from Last 3 Encounters:09/26/17 166.1 cm (67 %, Z= 0.43)*12/15/16 167.9 cm (77 %, Z= 0.72)*06/28/16 165 cm (61 %, Z= 0.28) Growth percentiles are based on CDC 2-20 Years data.Body mass index is 39.98 kg/m .98 %ile (Z= 2.16) based on CDC 2-20 Years BMI-for-age data using vitals from09/26/2017.>99 %ile (Z > 2.33) based on CDC 2-20 Years [id number] data using vitalsfrom 09/26/2017.67 %ile (Z= 0.43) based on CDC 2-20 Years [id number] data using vitals from09/26/2017.GENERAL EXAMINATION:Awake and alert. Average built and nutrition.HEENT: normocephalic, atraumatic. Moist mucous membranesChest: b/l CTACVS: S1, S2 nlAbdomen: soft, nontender, nondistendedSkin: No neurocutaneous markers or rashesSpine: midline. No tuft of hair/ sacral dimple/ lumpNEUROLOGIC EXAMINATIONMENTAL STATUS: Awake, alert and oriented to person, place and time. Cooperativewith normal comprehension and fluent speech.CRANIAL NERVES:No deficit.MOTOR: Normal muscle bulk, strength and tone. No adventitious movements.REFLEXES: Deep tendon reflexes 2+ and symmetric. Plantar responses flexor. Nopathological reflexes.SENSORY: Intact to light touch, vibration, temperature and proprioception.COORDINATION: No tremor or abnormal movement.DIAGNOSTICS:EE10/14/15: INTERPRETATION: This is a normal awake and asleep EEG. Nospells were seen.CT head and MRI Brain: 10/11/15: NormalEMU: 06/28/16 to 06/30/16:INTERPRETATION: During 44 hours and 55 minutes of continuousdigital EEG/Video monitoring with scalp electrodes, the EEG wasnormal. There were no concerning events captured and noepileptiform discharges were noted throughout the recording. Incomparison to previous EEGs, this study is also normal. Theintermittent theta bursts were also present on her priorrecording. Clinical correlation is recommended.1. Convulsions, unspecified convulsion type2. Other depression3. Generalized anxiety disorder4. Chronic tension-type headache, intractable [facility] topiramate (TOPAMAX) 50 MG tablet5. Migraine without aura and without status migrainosus, not intractabletopiramate (TOPAMAX) 50 MG tablet SUMAtriptan Succinate (IMITREX) 100 MG tabletASSESSMENT:17 years old female with h/o anxiety, depression and Non Epileptic spells (controlled now). She has tension type and episodic migraine like headache.Reports worsening of anxiety and tension type headaches.Migraines are well controlled on Topamax and respond well to Imitrex.Again discussed about the Explained The increased risk of Serotonin syndromedue to Serotonin enhancing effect of Prozac and Imitrex. Will monitor.PLAN:Spells:1. Continue follow up with Psychiatry/ Anil/ councellor2. Encourage meditation/ relaxation/ YogaHeadache:1. Lifestyle advice reinforced2. Continue Topamax 50 mg po bid3. Rescue: Rest, ice packs, dark room, 2 of Aleve 220 mg Along with [id number] mg po prn headache, max 2 times/ week4. Headache psychology referral5. Follow up in 4 months Normal [facility] Vital Signs Date Time Vital Sign Value Performing Clinician Facility 03-07-2025 08:43-0400 Body height 175.3 cm Freddie Ramirez MD Work Phone: [facility] 03-07-2025 08:43-0400 Body mass index (BMI) [Ratio] 44.89 kg/m2 Freddie Ramirez MD Work Phone: [facility] 03-07-2025 08:43-0400 Body weight 137.89 kg Freddie Ramirez MD Work Phone: [facility] 03-07-2025 08:43-0400 Diastolic blood pressure 80 mm[Hg] Freddie Ramirez MD Work Phone: [facility] 03-07-2025 08:43-0400 Heart rate 98 /min Freddie Ramirez MD Work Phone: [facility] 03-07-2025 08:43-0400 Systolic blood pressure 119 mm[Hg] Freddie Ramirez MD Work Phone: [facility] 11-16-2024 08:05-0400 Body height 175.3 cm Freddie Ramirez MD Work Phone: [facility] 11-16-2024 08:05-0400 Body mass index (BMI) [Ratio] 43.8 kg/m2 Freddie Ramirez MD Work Phone: [facility] 11-16-2024 08:05-0400 Body weight 134.54 kg Freddie Ramirez MD Work Phone: [facility] 11-16-2024 08:05-0400 Diastolic blood pressure 83 mm[Hg] Freddie Ramirez MD Work Phone: [facility] 11-16-2024 08:05-0400 Heart rate 80 /min Freddie Ramirez MD Work Phone: [facility] 11-16-2024 08:05-0400 Systolic blood pressure 132 mm[Hg] Freddie Ramirez MD Work Phone: [facility] 10-19-2024 15:44-0500 Body height 170.2 cm Edwin Lock MD Work Phone: [facility] 10-19-2024 15:44-0500 Body mass index (BMI) [Ratio] 45.26 kg/m2 Edwin Lock MD Work Phone: [facility] 10-19-2024 15:44-0500 Body weight 131.09 kg Edwin Lock MD Work Phone: [facility] 10-19-2024 15:44-0500 Diastolic blood pressure 78 mm[Hg] Edwin Lock MD Work Phone: [facility] 10-19-2024 15:44-0500 Heart rate 95 /min Edwin Lock MD Work Phone: [facility] 10-19-2024 15:44-0500 Respiratory rate 18 /min Edwin Lock MD Work Phone: [facility] 10-19-2024 15:44-0500 SaO2% (BldA) [Mass fraction] 96 % Edwin Lock MD Work Phone: [facility] 10-19-2024 15:44-0500 Systolic blood pressure 141 mm[Hg] Edwin Lock MD Work Phone: [facility] 10-08-2024 13:30-0500 Body mass index (BMI) [Ratio] 45.89 kg/m2 Hyacinth Gonsales APRN.MANAGER INTERNAL Work Phone: [facility] 10-08-2024 13:30-0500 Body temperature 97.59 [degF] Hyacinth Gonsales APRN.MANAGER INTERNAL Work Phone: [facility] 10-08-2024 13:30-0500 Body weight 132.9 kg Hyacinth Gonsales APRN.MANAGER INTERNAL Work Phone: [facility] 10-08-2024 13:30-0500 Diastolic blood pressure 95 mm[Hg] Hyacinth Gonsales APRN.MANAGER INTERNAL Work Phone: [facility] 10-08-2024 13:30-0500 Heart rate 101 /min Hyacinth Gonsales APRN.MANAGER INTERNAL Work Phone: [facility] 10-08-2024 13:30-0500 Respiratory rate 18 /min Hyacinth Gonsales APRN.MANAGER INTERNAL Work Phone: [facility] 10-08-2024 13:30-0500 SaO2% (BldA) [Mass fraction] 97 % Hyacinth Gonsales APRN.MANAGER INTERNAL Work Phone: [facility] 10-08-2024 13:30-0500 Systolic blood pressure 149 mm[Hg] Hyacinth Gonsales APRN.MANAGER INTERNAL Work Phone: [facility] 08-22-2024 02:07-0500 Diastolic Blood Pressure Non-Invasive 76 mm[Hg] TSERING CARMICHAELT DO [facility] 08-22-2024 02:07-0500 Heart rate 84 /min TSERING CARMICHAELT DO [facility] 08-22-2024 02:07-0500 Respiratory rate 18 /min TSERING CARMICHAELT DO [facility] 08-22-2024 02:07-0500 Systolic Blood Pressure Non-Invasive 124 mm[Hg] TSERING CARMICHAELT DO [facility] 08-21-2024 23:19-0500 Body temperature 98.24 [degF] TSERING MONTERO DO [facility] 08-21-2024 23:19-0500 Diastolic Blood Pressure Non-Invasive 78 mm[Hg] TSERING MONTERO DO [facility] 08-21-2024 23:19-0500 Heart rate 92 /min TSERING MONTERO DO [facility] 08-21-2024 23:19-0500 Respiratory rate 18 /min TSERING MONTERO DO [facility] 08-21-2024 23:19-0500 Systolic Blood Pressure Non-Invasive 136 mm[Hg] TSERING MONTERO DO [facility] 06-19-2024 23:08-0500 Blood Pressure Location ALPA REAVES MD [facility] 06-19-2024 23:08-0500 Blood Pressure Method ALPA REAVES MD [facility] 06-19-2024 23:08-0500 Body height 170.2 cm ALPA REAVES MD [facility] 06-19-2024 23:08-0500 Body temperature 96.8 [degF] ALPA REAVES MD [facility] 06-19-2024 23:08-0500 Body weight 109.1 kg ALPA REAVES MD [facility] 06-19-2024 23:08-0500 Diastolic Blood Pressure Non-Invasive 78 mm[Hg] ALPA REAVES MD [facility] 06-19-2024 23:08-0500 Heart rate 99 /min ALPA REAVES MD [facility] 06-19-2024 23:08-0500 Respiratory rate 18 /min ALPA REAVES MD [facility] 06-19-2024 23:08-0500 Systolic Blood Pressure Non-Invasive 118 mm[Hg] ALPA REAVES MD [facility] 04-09-2024 08:50-0400 Body height 168.9 cm Edwin Lock MD Work Phone: [facility] 04-09-2024 08:50-0400 Body mass index (BMI) [Ratio] 38.16 kg/m2 Edwin Lock MD Work Phone: [facility] 04-09-2024 08:50-0400 Body weight 108.86 kg Edwin Lock MD Work Phone: [facility] 04-09-2024 08:50-0400 Diastolic blood pressure 52 mm[Hg] Edwin Lock MD Work Phone: [facility] 04-09-2024 08:50-0400 Heart rate 60 /min Edwin Lock MD Work Phone: [facility] 04-09-2024 08:50-0400 Respiratory rate 16 /min Edwin Lock MD Work Phone: [facility] 04-09-2024 08:50-0400 SaO2% (BldA) [Mass fraction] 97 % Edwin Lock MD Work Phone: [facility] 04-09-2024 08:50-0400 Systolic blood pressure 92 mm[Hg] Edwin Lock MD Work Phone: [facility] 02-04-2024 22:47-0400 Diastolic Blood Pressure Non-Invasive 59 mm[Hg] ALPA REAVES MD [facility] 02-04-2024 22:47-0400 Heart rate 68 /min ALPA REAVES MD [facility] 02-04-2024 22:47-0400 Reason For Taking VItal Signs ALPA REAVES MD [facility] 02-04-2024 22:47-0400 Respiratory rate 18 /min ALPA REAVES MD [facility] 02-04-2024 22:47-0400 Systolic Blood Pressure Non-Invasive 112 mm[Hg] ALPA REAVES MD [facility] 02-04-2024 21:46-0400 Body temperature 97.88 [degF] ALPA REAVES MD [facility] 02-04-2024 21:46-0400 Diastolic Blood Pressure Non-Invasive 75 mm[Hg] ALPA REAVES MD [facility] 02-04-2024 21:46-0400 Heart rate 91 /min ALPA REAVES MD [facility] 02-04-2024 21:46-0400 Respiratory rate 18 /min ALPA REAVES MD [facility] 02-04-2024 21:46-0400 Systolic Blood Pressure Non-Invasive 115 mm[Hg] ALPA REAVES MD [facility] 09-03-2023 23:50-0500 Body temperature 97.7 [degF] DR KYLEIGH YANG MD [facility] 09-03-2023 23:50-0500 Diastolic Blood Pressure Non-Invasive 82 mm[Hg] DR KYLEIGH YANG MD [facility] 09-03-2023 23:50-0500 Heart rate 70 /min DR KYLEIGH YANG MD [facility] 09-03-2023 23:50-0500 Respiratory rate 16 /min DR KYLEIGH YANG MD [facility] 09-03-2023 23:50-0500 Systolic Blood Pressure Non-Invasive 118 mm[Hg] DR KYLEIGH YANG MD [facility] 05-29-2023 20:47-0400 Blood Pressure Cuff Size NIDAL CHOUJAA DO [facility] 05-29-2023 20:47-0400 Blood Pressure Location NIDAL CHOUJAA DO [facility] 05-29-2023 20:47-0400 Blood Pressure Method NIDAL CHOUJAA DO [facility] 05-29-2023 20:47-0400 Body temperature 98.6 [degF] NIDAL CHOUJAA DO [facility] 05-29-2023 20:47-0400 Diastolic Blood Pressure Non-Invasive 87 1 NIDAL CHOUJAA DO [facility] 05-29-2023 20:47-0400 Heart rate 83 /min NIDAL CHOUJAA DO [facility] 05-29-2023 20:47-0400 Respiratory rate 16 /min NIDAL CHOUJAA DO [facility] 05-29-2023 20:47-0400 Systolic Blood Pressure Non-Invasive 136 1 NIDAL CHOUJAA DO [facility] 02-19-2023 09:43-0400 Diastolic Blood Pressure Non-Invasive 72 1 JANAK REICHFIELD DO [facility] 02-19-2023 09:43-0400 Heart rate 79 /min JANAK REICHFIELD DO [facility] 02-19-2023 09:43-0400 Respiratory rate 16 /min JANAK REICHFIELD DO [facility] 02-19-2023 09:43-0400 Systolic Blood Pressure Non-Invasive 112 1 JANAK REICHFIELD DO [facility] 02-19-2023 08:55-0400 Body temperature 98.42 [degF] JANAK REICHFIELD DO [facility] 02-19-2023 08:55-0400 Diastolic Blood Pressure Non-Invasive 79 1 JANAK REICHFIELD DO [facility] 02-19-2023 08:55-0400 Heart rate 94 /min JANAK REICHFIELD DO [facility] 02-19-2023 08:55-0400 Respiratory rate 14 /min JANAK REICHFIELD DO [facility] 02-19-2023 08:55-0400 Systolic Blood Pressure Non-Invasive 113 1 JANAK REICHFIELD DO [facility] 11-28-2022 13:05-0400 Diastolic Blood Pressure Non-Invasive [address] KYLEIGH YANG MD [facility] 11-28-2022 13:05-0400 Heart rate 62 /min DR KYLEIGH YANG MD [facility] 11-28-2022 13:05-0400 Respiratory rate 18 /min DR KYLEIGH YANG MD [facility] 11-28-2022 13:05-0400 Systolic Blood Pressure Non-Invasive [address] KYLEIGH YANG MD [facility] 11-28-2022 12:04-0400 Diastolic Blood Pressure Non-Invasive [address] KYLEIGH YANG MD [facility] 11-28-2022 12:04-0400 Heart rate 61 /min DR KYLEIGH YANG MD [facility] 11-28-2022 12:04-0400 Systolic Blood Pressure Non-Invasive [address] KYLEIGH YANG MD [facility] 11-28-2022 11:10-0400 Body temperature 97.16 [degF] DR KYLEIGH YANG MD [facility] 11-28-2022 11:10-0400 Diastolic Blood Pressure Non-Invasive [address] KYLEIGH YANG MD [facility] 11-28-2022 11:10-0400 Heart rate 84 /min DR KYLEIGH YANG MD [facility] 11-28-2022 11:10-0400 Respiratory rate 12 /min DR KYLEIGH YANG MD [facility] 11-28-2022 11:10-0400 Systolic Blood Pressure Non-Invasive [address] KYLEIGH YANG MD [facility] 11-14-2022 13:20-0400 Diastolic Blood Pressure Non-Invasive 86 1 CATHERINE CORDOBA MD [facility] 11-14-2022 13:20-0400 Heart rate 52 /min CATHERINE CORDOBA MD [facility] 11-14-2022 13:20-0400 Respiratory rate 19 /min CATHERINE CORDOBA MD [facility] 11-14-2022 13:20-0400 Systolic Blood Pressure Non-Invasive 115 1 CATHERINE CORDOBA MD [facility] 11-14-2022 13:05-0400 Heart rate 61 /min CATHERINE CORDOBA MD [facility] 11-14-2022 13:05-0400 Respiratory rate 21 /min CATHERINE CORDOBA MD [facility] 11-14-2022 11:54-0400 Body temperature 96.98 [degF] CATHERINE CORDOBA MD [facility] 11-14-2022 11:54-0400 Diastolic Blood Pressure Non-Invasive 74 1 CATHERINE CORDOBA MD [facility] 11-14-2022 11:54-0400 Heart rate 78 /min CATHERINE CORDOBA MD [facility] 11-14-2022 11:54-0400 Respiratory rate 14 /min CATHERINE CORDOBA MD [facility] 11-14-2022 11:54-0400 Systolic Blood Pressure Non-Invasive 115 1 CATHERINE CORDOBA MD [facility] 10-17-2022 08:05-0500 Diastolic Blood Pressure Non-Invasive 69 1 SANDOVAL LUNDY MD [facility] 10-17-2022 08:05-0500 Heart rate 70 /min SANDOVAL LUNDY MD [facility] 10-17-2022 08:05-0500 Respiratory rate 16 /min SANDOVAL LUNDY MD [facility] 10-17-2022 08:05-0500 Systolic Blood Pressure Non-Invasive 108 1 SANDOVAL LUNDY MD [facility] 10-17-2022 07:05-0500 Body temperature 97.7 [degF] SANDOVAL LUNDY MD [facility] 10-17-2022 07:05-0500 Body weight 104.9 kg SANDOVAL LUNDY MD [facility] 10-17-2022 07:05-0500 Diastolic Blood Pressure Non-Invasive 75 1 SANDOVAL LUNDY MD [facility] 10-17-2022 07:05-0500 Heart rate 84 /min SANDOVAL LUNDY MD [facility] 10-17-2022 07:05-0500 Respiratory rate 16 /min SANDOVAL LUNDY MD [facility] 10-17-2022 07:05-0500 Systolic Blood Pressure Non-Invasive 123 1 SANDOVAL LUNDY MD [facility] 09-12-2022 13:05-0500 Body temperature 97.81 [degF] Marysol Alexander APRN.MANAGER INTERNAL Work Phone: [facility] 09-12-2022 13:05-0500 Diastolic blood pressure 78 mm[Hg] Marysol Alexander APRN.MANAGER INTERNAL Work Phone: [facility] 09-12-2022 13:05-0500 Heart rate 73 /min Marysol Alexander APRN.MANAGER INTERNAL Work Phone: [facility] 09-12-2022 13:05-0500 Respiratory rate 16 /min Mraysol Alexander APRN.MANAGER INTERNAL Work Phone: [facility] 09-12-2022 13:05-0500 SaO2% (BldA) [Mass fraction] 100 % Marysol Alexander APRN.MANAGER INTERNAL Work Phone: [facility] 09-12-2022 13:05-0500 Systolic blood pressure 116 mm[Hg] Marysol Alexander APRN.MANAGER INTERNAL Work Phone: [facility] 08-24-2022 23:57-0500 Body temperature 98.24 [degF] TSERING CARMICHAELT DO [facility] 08-24-2022 23:57-0500 Heart rate 72 /min TSERING CARMICHAELT DO [facility] 08-24-2022 23:57-0500 Respiratory rate 18 /min TSERING CARMICHAELT DO [facility] 08-24-2022 21:27-0500 Body temperature 98.06 [degF] TSERING CARMICHAELT DO [facility] 08-24-2022 21:27-0500 Diastolic Blood Pressure Non-Invasive 84 1 TSERING CARMICHAELT DO [facility] 08-24-2022 21:27-0500 Heart rate 90 /min TSERING CARMICHAELT DO [facility] 08-24-2022 21:27-0500 Respiratory rate 18 /min TSERING CARMICHAELT DO [facility] 08-24-2022 21:27-0500 Systolic Blood Pressure Non-Invasive 116 1 TSERING CARMICHAELT DO [facility] 08-15-2022 11:53-0500 Body temperature 98.6 [degF] Casey Harry PA-C Work Phone: [facility] 08-15-2022 11:53-0500 Diastolic blood pressure 75 mm[Hg] Casey MCKINNON-C Work Phone: [facility] 08-15-2022 11:53-0500 Heart rate 85 /min Casey Harry PA-C Work Phone: [facility] 08-15-2022 11:53-0500 Respiratory rate 16 /min Casey MCKINNON-C Work Phone: [facility] 08-15-2022 11:53-0500 SaO2% (BldA) [Mass fraction] 97 % Casey MCKINNON-C Work Phone: [facility] 08-15-2022 11:53-0500 Systolic blood pressure 113 mm[Hg] Casey MCKINNON-C Work Phone: [facility] 07-30-2022 10:15-0500 Body temperature 97 [degF] Emmanuelle Live DO Work Phone: [facility] 07-30-2022 10:10-0500 Diastolic blood pressure 53 mm[Hg] Emmanuelle Live DO Work Phone: [facility] 07-30-2022 10:10-0500 Systolic blood pressure 97 mm[Hg] Emmanuelle Live DO Work Phone: [facility] 07-30-2022 09:06-0500 Body height 167.6 cm Emmanuelle Live DO Work Phone: [facility] 07-30-2022 09:06-0500 Heart rate 66 /min Emmanuelle Live DO Work Phone: [facility] 07-30-2022 09:06-0500 Respiratory rate 16 /min Emmanuelle Live DO Work Phone: [facility] 07-30-2022 09:06-0500 SaO2% (BldA) [Mass fraction] 100 % Emmanuelle Live DO Work Phone: [facility] 07-27-2022 14:51-0500 Body height 168.9 cm [facility] 07-27-2022 14:51-0500 Body weight 100.7 kg [facility] 07-16-2022 20:26-0500 Body height 167.[address] CLAUDIA SHANKS DO [facility] 07-16-2022 20:26-0500 Body temperature 98.78 [degF] DR CLAUDIA SHANKS DO [facility] 07-16-2022 20:26-0500 Body weight [address] CLAUDIA SHANKS DO [facility] 07-16-2022 20:26-0500 Diastolic Blood Pressure Non-Invasive [address] CLAUDIA SHANKS DO [facility] 07-16-2022 20:26-0500 Heart rate 93 /min DR CLAUDIA SHANKS DO [facility] 07-16-2022 20:26-0500 Respiratory rate 18 /min DR CLAUDIA SHANKS DO [facility] 07-16-2022 20:26-0500 Systolic Blood Pressure Non-Invasive [address] CLAUDIA SHANKS DO [facility] 07-16-2022 19:01-0500 Body temperature 98.6 [degF] Consuelo Isaac PA-C Work Phone: [facility] 07-16-2022 19:01-0500 Body weight 106.1 kg Consuelo Isaac PA-C Work Phone: [facility] 07-16-2022 19:01-0500 Diastolic blood pressure 53 mm[Hg] Consuelo Isaac PA-C Work Phone: [facility] 07-16-2022 19:01-0500 Heart rate 97 /min Consuelo Isaac PA-C Work Phone: [facility] 07-16-2022 19:01-0500 SaO2% (BldA) [Mass fraction] 98 % Consuelo Isaac PA-C Work Phone: [facility] 07-16-2022 19:01-0500 Systolic blood pressure 91 mm[Hg] Consuelo Isaac PA-C Work Phone: [facility] 06-07-2022 09:05-0400 Diastolic blood pressure 71 mm[Hg] CATHERINE CORDOBA MD [facility] 06-07-2022 09:05-0400 Heart rate 62 /min CATHERINE CODROBA MD [facility] 06-07-2022 09:05-0400 Respiratory rate 18 /min CATHERINE CORDOBA MD [facility] 06-07-2022 09:05-0400 Systolic blood pressure 109 mm[Hg] CATHERINE CORDOBA MD [facility] 06-07-2022 07:45-0400 Body temperature 98.42 [degF] CATHERINE CORDOBA MD [facility] 06-07-2022 07:45-0400 Body weight 100 kg CATHERINE CORDOBA MD [facility] 06-07-2022 07:45-0400 Diastolic blood pressure 74 mm[Hg] CATHERINE CORDOBA MD [facility] 06-07-2022 07:45-0400 Heart rate 73 /min CATHERINE CORDOBA MD [facility] 06-07-2022 07:45-0400 Respiratory rate 16 /min CATHERINE CORDOBA MD [facility] 06-07-2022 07:45-0400 Systolic blood pressure 111 mm[Hg] CATHERINE CORDOBA MD [facility] 05-27-2022 03:35-0400 Body temperature 97.88 [degF] DR KYLEIGH YANG MD [facility] 05-27-2022 03:35-0400 Diastolic blood pressure 74 mm[Hg] DR KYLEIGH YANG MD [facility] 05-27-2022 03:35-0400 Heart rate 95 /min DR KYLEIGH YANG MD [facility] 05-27-2022 03:35-0400 Respiratory rate 18 /min DR KYLEIGH YANG MD [facility] 05-27-2022 03:35-0400 Systolic blood pressure 102 mm[Hg] DR KYLEIGH YANG MD [facility] 05-21-2022 09:50-0400 Diastolic blood pressure 78 mm[Hg] RODO SANTAMARIA MD [facility] 05-21-2022 09:50-0400 Heart rate 79 /min RODO SANTAMARIA MD [facility] 05-21-2022 09:50-0400 Respiratory rate 16 /min RODO SANTAMARIA MD [facility] 05-21-2022 09:50-0400 Systolic blood pressure 125 mm[Hg] RODO SANTAMARIA MD [facility] 05-21-2022 07:54-0400 Body height 158 cm RODO SANTAMARIA MD [facility] 05-21-2022 07:54-0400 Body temperature 97.7 [degF] RODO SANTAMARIA MD [facility] 05-21-2022 07:54-0400 Body weight 91 kg RODO SANTAMARIA MD [facility] 05-21-2022 07:54-0400 Diastolic blood pressure 82 mm[Hg] RODO SANTAMARIA MD [facility] 05-21-2022 07:54-0400 Heart rate 90 /min RODO SANTAMARIA MD [facility] 05-21-2022 07:54-0400 Respiratory rate 18 /min RODO SANTAMARIA MD [facility] 05-21-2022 07:54-0400 Systolic blood pressure 21 mm[Hg] RODO SANTAMARIA MD [facility] 05-01-2022 14:39-0400 Body temperature 97.11 [degF] Casey Harry PA-C Work Phone: [facility] 05-01-2022 14:39-0400 Diastolic blood pressure 61 mm[Hg] Casey Harry PA-C Work Phone: [facility] 05-01-2022 14:39-0400 Heart rate 86 /min Casey Harry PA-C Work Phone: [facility] 05-01-2022 14:39-0400 Respiratory rate 16 /min Casey Harry PA-C Work Phone: [facility] 05-01-2022 14:39-0400 SaO2% (BldA) [Mass fraction] 100 % Casey Harry PA-C Work Phone: [facility] 05-01-2022 14:39-0400 Systolic blood pressure 132 mm[Hg] Casey Harry PA-C Work Phone: [facility] 04-17-2022 01:04-0400 Body temperature 98.06 [degF] KATIANA FLORENTINO DO [facility] 04-17-2022 01:04-0400 Diastolic blood pressure 77 mm[Hg] KATIANA FLORENTINO DO [facility] 04-17-2022 01:04-0400 Heart rate 78 /min KATIANA FLORENTINO DO [facility] 04-17-2022 01:04-0400 Respiratory rate 18 /min KATIANA FLORENTINO DO [facility] 04-17-2022 01:04-0400 Systolic blood pressure 128 mm[Hg] KATIAAN MISHEL MORRISON [facility] 03-20-2022 23:15-0400 Diastolic blood pressure 64 mm[Hg] DR LEANA HAMMOND MD [facility] 03-20-2022 23:15-0400 Heart rate 66 /min DR LEANA HAMMOND MD [facility] 03-20-2022 23:15-0400 Reason For Taking VItal Signs DR LEANA HAMMOND MD [facility] 03-20-2022 23:15-0400 Respiratory rate 15 /min DR LEANA HAMMOND MD [facility] 03-20-2022 23:15-0400 Systolic blood pressure 100 mm[Hg] DR LEANA HAMMOND MD [facility] 03-20-2022 23:09-0400 Heart rate 73 /min DR LEANA HAMMOND MD [facility] 03-20-2022 23:09-0400 Respiratory rate 16 /min DR LEANA HAMMOND MD [facility] 03-20-2022 22:16-0400 Body temperature 98.42 [degF] DR LEANA HAMMOND MD [facility] 03-20-2022 22:16-0400 Diastolic blood pressure 67 mm[Hg] DR LEANA HAMMOND MD [facility] 03-20-2022 22:16-0400 Heart rate 75 /min DR LEANA HAMMOND MD [facility] 03-20-2022 22:16-0400 Respiratory rate 18 /min DR LEANA HAMMOND MD [facility] 03-20-2022 22:16-0400 Systolic blood pressure 106 mm[Hg] DR LEANA HAMMOND MD [facility] 02-06-2022 22:20-0400 Diastolic blood pressure 65 mm[Hg] RODO SANTAMARIA MD [facility] 02-06-2022 22:20-0400 Heart rate 88 /min RODO SANTAMARIA MD [facility] 02-06-2022 22:20-0400 Mean blood pressure 76 mm[Hg] RODO SANTAMARIA MD [facility] 02-06-2022 22:20-0400 Reason For Taking VItal Signs RODO SANTAMARIA MD [facility] 02-06-2022 22:20-0400 Respiratory rate 14 /min RODO SANTAMARIA MD [facility] 02-06-2022 22:20-0400 Systolic blood pressure 98 mm[Hg] RODO SANTAMARIA MD [facility] 02-06-2022 21:50-0400 Body temperature 97.7 [degF] RDOO SANTAMARIA MD [facility] 02-06-2022 21:50-0400 Diastolic blood pressure 95 mm[Hg] RODO SANTAMARIA MD [facility] 02-06-2022 21:50-0400 Heart rate 84 /min RODO SANTAMARIA MD [facility] 02-06-2022 21:50-0400 Mean blood pressure 107 mm[Hg] RODO SANTAMARIA MD [facility] 02-06-2022 21:50-0400 Respiratory rate 14 /min RODO SANTAMARIA MD [facility] 02-06-2022 21:50-0400 Systolic blood pressure 131 mm[Hg] RODO SANTAMARIA MD [facility] 11-26-2021 23:29-0400 Diastolic blood pressure 65 mm[Hg] NOREEN MARSHALL MD [facility] 11-26-2021 23:29-0400 Heart rate 65 /min NOREEN MARSHALL MD [facility] 11-26-2021 23:29-0400 Respiratory rate 16 /min NOREEN MARSHALL MD [facility] 11-26-2021 23:29-0400 Systolic blood pressure 108 mm[Hg] NOREEN MARSHALL MD [facility] 11-26-2021 22:36-0400 Body temperature 97.7 [degF] NOREEN MARSHALL MD [facility] 11-26-2021 22:36-0400 Body weight 96.9 kg NOREEN MARSHALL MD [facility] 11-26-2021 22:36-0400 Diastolic blood pressure 71 mm[Hg] NOREEN MARSHALL MD [facility] 11-26-2021 22:36-0400 Heart rate 77 /min NOREEN MARSHALL MD [facility] 11-26-2021 22:36-0400 Respiratory rate 15 /min NOREEN MARSHALL MD [facility] 11-26-2021 22:36-0400 Systolic blood pressure 122 mm[Hg] NOREEN MARSHALL MD [facility] 06-28-2021 20:07-0500 Body temperature 98.06 [degF] DR KYLEIGH YANG MD [facility] 06-28-2021 20:07-0500 Diastolic blood pressure 73 mm[Hg] DR KYLEIGH YANG MD [facility] 06-28-2021 20:07-0500 Heart rate 100 /min DR KYLEIGH YANG MD [facility] 06-28-2021 20:07-0500 Respiratory rate 18 /min DR KYLEIGH YANG MD [facility] 06-28-2021 20:07-0500 Systolic blood pressure 115 mm[Hg] DR KYLEIGH YANG MD [facility] 01-29-2020 11:45-0400 Body Temperature 98.2 [degF] [facility] [place] 01-29-2020 06:17-0400 BP Diastolic 71 mm[Hg] [facility] [place] , [place] 01-29-2020 06:17-0400 BP Systolic 119 mm[Hg] [facility] , [place] 01-29-2020 06:17-0400 Pulse (Heart Rate) 86 /min [facility], [place] 01-29-2020 06:17-0400 Pulse Oximetry 98 % [facility] , [place] 01-29-2020 06:17-0400 Respiratory Rate 18 /min [facility] [place] 01-25-2020 16:08-0400 BMI (Body Mass Index) 33.09 kg/m2 [facility] [place], [place] 01-25-2020 16:08-0400 Body weight 92.99 kg [place], [place] 07-28-2018 11:23-0500 Height 167.6 cm [place] Encounters Encounter Date Encounter Type Care Provider Facility Start: 04-02-2025 End: 04-02-2025 Emergency department patient visit MAURICIO ALEXANDER DO [facility] Start: 03-27-2025 End: 03-27-2025 Subsequent hospital visit by physician Fani Baez MD Work Phone: [facility] Imaging Comment on above: Abnormal levels of o ther serum enzymes Start: 03-27-2025 End: 03-27-2025 ambulatory FANI BAEZ [facility] Start: 03-22-2025 End: 03-22-2025 Emergency department patient visit JANAK CRUZ DO [facility] Start: 03-15-2025 End: 03-15-2025 ambulatory Freddie Ramirez MD Work Phone: [facility] Comment on above: Obstructive sleep ap [place] Start: 03-07-2025 End: 03-07-2025 Office outpatient visit 15 minutes Freddie Ramirez MD Work Phone: [facility] Comment on above: Intractable migraine with aura without status migrainosus (Primary Dx); Obstructive sleep apnea; Vertigo; Psychogenic nonepileptic seizure Start: 03-07-2025 End: 03-07-2025 ambulatory [facility] Start: 03-04-2025 End: 03-04-2025 [facility] Edwin Lock MD Work Phone: Neurology Comment on above: Seizure-like activit y (HCC) (Primary Dx); Generalized anxiety disorder Start: 01-28-2025 End: 01-29-2025 Emergency department patient visit KATIANA FLORENTINO DO [facility] Start: 01-06-2025 End: 01-06-2025 Emergency department patient visit HEATH HUMPHREYS DO [facility] Start: 11-26-2024 End: 11-26-2024 Telephone encounter Freddie Ramirez MD Work Phone: [facility] Start: 11-20-2024 End: 11-20-2024 Telephone encounter Freddie Ramirez MD Work Phone: [facility] Central Scheduling Comment on above: Prior Authorization (PA required- PSG ) Start: 11-16-2024 End: 11-16-2024 Office outpatient new 60 minutes Freddie Ramirez MD Work Phone: [facility] Comment on above: Intractable migraine with aura without status migrainosus (Primary Dx); Obstructive sleep apnea; Vertigo; Numbness in right leg; Cervicalgia Start: 11-16-2024 End: 11-16-2024 ambulatory [facility] Start: 11-16-2024 End: 11-16-2024 Emergency department patient visit [facility] Facility:[facility] Start: 10-19-2024 End: 10-19-2024 Patient encounter procedure Edwin Lock MD Work Phone: Neurology Comment on above: Seizure-like activit y (HCC) (Primary Dx); Moderate episode of recurrent major depressive disorder (HCC) Start: 10-19-2024 End: 10-19-2024 ambulatory EDWIN LOCK Facility:[facility] Start: 10-12-2024 End: 10-12-2024 [facility] Coral [facility] Edgar PhD Work Phone: Neurology Comment on above: 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) Start: 10-08-2024 End: 10-08-2024 ambulatory HYACINTH Khan ILDA Facility:[id number] Start: 10-08-2024 End: 10-08-2024 Office outpatient visit 15 minutes Hyacinth Erin Gonsales PILLOW AGENT.MANAGER INTERNAL Work Phone: [facility] [place] Comment on above: Urinary problem (Laurence cristo Dx); Acute cystitis with hematuria Start: 09-28-2024 End: 09-28-2024 [facility] [employer] Blunt Edgar PhD Work Phone: Neurology Comment on above: 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 Start: 06-19-2024 End: 06-20-2024 Emergency department patient visit ALPA REAVES MD 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) Start: 05-02-2024 End: 05-02-2024 Orders Only Javon Crouch PA-C Work Phone: Neurology Comment on above: Psychogenic nonepile ptic seizure (Primary Dx) Start: 04-28-2024 End: 05-03-2024 ambulatory CRISTEL MOLINA Facility:[facility] Start: 04-09-2024 End: 04-09-2024 Patient encounter procedure Edwin Lock MD Work Phone: Neurology Comment on above: Convulsions, unspeci fied convulsion type (HCC) (Primary Dx) Start: 04-09-2024 End: 04-09-2024 ambulatory EDWIN LOCK Facility:[facility] Start: 02-20-2024 End: 02-21-2024 Emergency department patient visit Cong Noriega Facility:[facility] Start: 02-04-2024 End: 02-04-2024 Emergency department patient visit ALPA REAVES MD [facility] Start: 01-16-2024 Encounter for other preprocedural examination Cali Kim [facility] Start: 01-10-2024 ambulatory Fani Baez Facility:[facility] Start: 01-10-2024 End: 01-10-2024 ambulatory Cali Kim Facility:[facility] Start: 01-04-2024 ambulatory NOA Pearson ity:[id number] Start: 01-04-2024 End: 01-04-2024 Subsequent hospital visit by physician [employer] [facility] Comment on above: Syncope and collapse [R55] Start: 01-01-2024 End: 01-02-2024 Emergency department patient visit Fani Baez Facility:[facility] Start: 12-22-2023 End: 12-22-2023 Emergency department patient visit Flor Salguero Facility:[facility] Start: 12-22-2023 End: 12-22-2023 ambulatory Cali Kim Facility:[facility] Start: 12-19-2023 ambulatory NOA Pearson ity:[id number] Start: 12-19-2023 End: 12-19-2023 Subsequent hospital visit by physician [facility] 1 [employer] Work Phone: [facility] Comment on above: Syncope and collapse [R55] Start: 11-29-2023 End: 11-29-2023 Emergency department patient visit Keith Parker Facility:[facility] Start: 11-29-2023 End: 11-29-2023 Emergency department patient visit SANODVAL HOGAN Facility:[id number] Start: 09-03-2023 End: 09-04-2023 Emergency department patient visit DR KYLEIGH YANG MD [facility] Start: 05-29-2023 End: 05-29-2023 Emergency department patient visit HEATH LAMALEILA DO [facility] Start: 2023 End: 2023 Emergency department patient visit DR FANI BAEZ MD Facility: Start: 02-19-2023 End: 02-19-2023 Emergency department patient visit JANAK LOPEZ DO [facility] Start: 11-28-2022 End: 11-28-2022 Emergency department patient visit DR KYLEIGH YANG MD [facility] Start: 11-14-2022 End: 11-14-2022 Emergency department patient visit CATHERINE CORDOBA MD [facility] Start: 10-17-2022 End: 10-17-2022 Emergency department patient visit SANDOVAL LUNDY MD [facility] Start: 09-12-2022 End: 09-12-2022 Patient encounter procedure Marysol Benjamin CAMARGOMANAGER INTERNAL Work Phone: [facility] Comment on above: Migraine without aur a, intractable, without status migrainosus (Primary Dx) Start: 08-24-2022 End: 08-24-2022 Emergency department patient visit TSERING MONTERO DO [facility] Start: 08-15-2022 End: 08-15-2022 Office outpatient visit 15 minutes Casey Harry PA-C Work Phone: [facility] Comment on above: Migraine without aur a, not intractable, with status migrainosus (Primary Dx) Start: 08-03-2022 End: 08-03-2022 Subsequent hospital visit by physician Gi/Gu [facility] [place] RADIO GI/ HW BATH Start: 08-02-2022 End: 08-02-2022 ambulatory Greg Robles MD Work Phone: Gastroenterology Comment on above: Gastroesophageal ref lux disease, unspecified whether esophagitis present (Primary Dx) Start: 08-02-2022 End: 08-02-2022 Telemedicine consultation with patient Greg Robles MD Work Phone: [facility] Start: 07-30-2022 ambulatory GREG ROBLES Facility: [facility] Start: 07-30-2022 End: 07-30-2022 Subsequent hospital visit by physician Emmanuelle Live DO Work Phone: [facility] Comment on above: Gastroesophageal ref lux disease, unspecified whether esophagitis present [K21.9] Start: 07-27-2022 End: 07-27-2022 Admission to establishment Pacc [facility] Start: 07-27-2022 End: 07-27-2022 ambulatory Pac [facility] Pre Anesthesia Comment on above: Preop examination (P rimary Dx) Start: 07-27-2022 End: 07-27-2022 Preprocedural examination done [facility] Pre Anesthesia Start: 07-23-2022 ambulatory [facility] Start: 07-23-2022 Emergency department patient visit Greg Robles MD Work Phone: Gastroenterology Comment on above: Unable to get Egd wh en in emergency room Start: 07-23-2022 Telephone encounter Greg Jacobo MD Work Phone: Gastroenterology Comment on above: Results Start: 07-21-2022 Telephone encounter Emmanuelle Live DO Work Phone: General Surgery Comment on above: Received Outside [facility] Records (Outside medical records) Start: 07-21-2022 End: 07-21-2022 ambulatory Greg Robles MD Work Phone: Gastroenterology Comment on above: Gastroesophageal ref lux disease, unspecified whether esophagitis present (Primary Dx); RUQ abdominal pain; Dehydration; Diarrhea, unspecified type; Hiatal hernia; Headaches Start: 07-21-2022 End: 07-21-2022 Telemedicine consultation with patient Greg Robles MD Work Phone: [facility] Start: 07-16-2022 End: 07-16-2022 Emergency department patient visit DR CLAUDIA SHANKS DO [facility] Start: 07-16-2022 End: 07-16-2022 Office outpatient visit 10 minutes Consuelo Isaac PA-C Work Phone: [facility] Comment on above: Dysuria (Primary Dx) ; Acute pyelonephritis Start: 06-07-2022 End: 06-07-2022 Emergency department patient visit CATHERINE CORDOBA MD [facility] Start: 05-27-2022 End: 05-27-2022 Emergency department patient visit DR KYLEIGH YANG MD [facility] Start: 05-21-2022 End: 05-21-2022 Emergency department patient visit RODO SANTAMARIA MD [facility] Start: 05-01-2022 End: 05-01-2022 Office outpatient new 20 minutes Casey Harry PA-C Work Phone: [facility] Comment on above: Bacterial sinusitis (Primary Dx) Start: 04-17-2022 End: 04-17-2022 Emergency department patient visit KATIANA FLORENTINO DO [facility] Start: 03-20-2022 End: 03-20-2022 Emergency department patient visit DR LEANA HAMMOND MD [facility] Start: 02-06-2022 End: 02-06-2022 Emergency department patient visit RODO SANTAMARIA MD [facility] Start: 11-26-2021 End: 11-26-2021 Emergency department patient visit NOREEN MARSHALL MD [facility] Start: 06-28-2021 End: 06-28-2021 Emergency department patient visit DR KYLEIGH YANG MD [facility] Start: 01-25-2020 Patient encounter procedure [facility] [place] Start: 04-11-2018 End: 04-11-2018 Patient [facility] Start: 2018 End: 2018 Patient encounter CECY TORRES [facility] Start: 12-27-2017 End: 12-27-2017 Patient encounter ANIL FINN [facility] Start: 11-28-2017 End: 11-28-2017 Patient encounter ANIL TERRELL [facility] Start: 11-28-2017 End: 11-28-2017 Patient encounter IAM JACOBS [facility] Start: 09-26-2017 End: 09-26-2017 Patient encounter CECY TORRES [facility] Start: 05-25-2017 End: 05-25-2017 Patient encounter [facility] Start: 04-27-2017 End: 04-27-2017 Patient encounter [facility] Procedures Date Procedure Procedure Detail Performing Clinician Start: 03-27-2025 Us abdominal real time w/image limited Fani Baez MD Work Phone: Start: 10-08-2024 Urnls dip stick/tablet rgnt auto w/o microscopy Jessica Camarillo DO Work Phone: Start: 01-04-2024 Mri brain brain stem w/o contrast material Noa Saravia DO Work Phone: Start: 07-30-2022 Esophagogastroduodenoscopy transoral diagnostic Greg Robles MD Work Phone: Start: 07-16-2022 Urnls dip stick/tablet rgnt auto w/o microscopy Consuelo Isaac PA-C Work Phone: Start: 03-09-2021 Ecg routine ecg w/least 12 lds i&r only Start: 01-25-2020 Drug screen class list a Henrik Abrams Work Phone: Start: 01-25-2020 Urine test visual color cmprsn meths Henrik Abrams Work Phone: Start: 01-25-2020 Urnls dip stick/tablet rgnt auto w/o microscopy Henrik Abrams Work Phone: Start: 01-25-2020 Ecg routine ecg w/least 12 lds w/i&r Henrik Abrams Work Phone: Start: 01-25-2020 Blood count complete automated Henrik Me hta Work Phone: Start: 01-25-2020 COVID-19 Henrik Abrams Work Phone: Start: 01-25-2020 Assay of acetaminophen Henrik Guidryhta Work Phone: Start: 01-25-2020 Assay of ethanol Henrik Abrams Work Phone: Start: 01-25-2020 Assay of salicylate Henrik Abrams Work Phone: Start: 01-25-2020 Comprehensive metabolic panel Henrik Guidryh ta Work Phone: Entire gallbladder (body structure) ALPA REAVES MD Innominate bone stru cture (body structure) ALPA REAVES MD None (qualifier value) DR ADAM YANG MD Plan of Treatment Date Care Activity Detail Author Start: 2073 RSV Immunization for Adults (1 - 1-dose 75+ series) RSV Immunization for Adults (1 - 1-dose 75+ series) [facility] Start: 2048 Zoster Vaccines (1 of 2) Zoster Vaccines (1 of 2) [facility] Start: 03-04-2027 DTaP/Tdap/Td Vaccines (8 - Td or Tdap) DTaP/Tdap/Td Vaccines (8 - Td or Tdap) [facility] Start: 03-04-2027 Urine microalbumin profile [facility] Start: 05-22-2025 End: 05-22-2025 Patient encounter procedure 05/22/2025 10:30 AM EDT Office Visit [facility] [address] [place] [address] [place] [address] Anabella Altman, STEVE - DARIUSZ [address] [place] [address] [facility] Start: 04-15-2025 Influenza vaccination [facility] Start: 03-15-2025 End: 03-15-2025 Clinical Support 03/15/2025 11:00 AM EDT Clinical Support [facility] [address] [place] [address] Freddie Ramirez MD [address] [facility] [address] [place] [address] [facility] Start: 03-07-2025 End: 03-07-2025 Patient encounter procedure 03/07/2025 9:00 AM EDT Office Visit [facility] [address] [facility] [address] [place] [id number] Freddie Ramirez MD [address] [facility] [address] [place] [address] [facility] Start: 03-04-2025 End: 03-04-2025 ambulatory 03/04/2025 2:00 PM EDT [facility] Neurology [address] [place] [address] Edwin Lock MD [address] [address] 4mo f/u Neurology Comment on above: 4mo f/u Start: 12-21-2024 End: 12-21-2024 ambulatory 12/21/2024 10:00 AM EDT [facility] Neurology [address] [place] [address] Coral Hernández, PhD [address] [place] [address] [facility] Comment on above: pnes Start: 12-21-2024 End: 12-21-2024 Patient encounter procedure 12/21/2024 9:30 AM EDT Office Visit Neurology [address] [place] [address] Edwin Lock MD [address] [address] per edgar Neurology Comment on above: per edgar Start: 12-14-2024 End: 12-14-2024 ambulatory 12/14/2024 10:00 AM EDT [facility] [address] [place] [address] Coral Hernández, PhD [address] [place] [address] [facility]nes Neurology Comment on above: pnes Start: 12-11-2024 End: 12-11-2024 Clinical Support 12/11/2024 8:30 PM EDT Clinical Support [facility] [address] [place] [address] Freddie Ramirez MD [address] [facility] [address] [place] [address] [facility] Start: 11-26-2024 End: 11-26-2025 Home sleep test Home sleep test Sleep Center Routine Obstructive sleep apnea Expected: 11/26/2024 (Approximate), Expires: 11/26/2025 [facility] Work Phone: Comment on above: Expected: 11/26/2024 (Approximate), Expi res: 11/26/2025 Start: 11-23-2024 End: 11-23-2024 ambulatory 11/23/2024 10:00 AM EDT [facility] Neurology [address] [place] [address] Coral Hernández, PhD [address] [place] [address] [facility] Neurology Comment on above: pnes Start: 11-16-2024 End: 11-16-2025 Nerve conduction test with EMG Nerve conduction test with [facility]G Neurology Routine Numbness in right leg Expected: 11/16/2024 (Approximate), Expires: 11/16/2025 [facility] Comment on above: Expected: 11/16/2024 (Approximate), Expi res: 11/16/2025 Start: 11-16-2024 End: 11-16-2025 Polysomnography Polysomnography Sleep Center Routine Obstructive sleep apnea Expected: 11/16/2024 (Approximate), Expires: 11/16/2025 [facility] Work Phone: Comment on above: Expected: 11/16/2024 (Approximate), Expi res: 11/16/2025 Start: 11-16-2024 End: 11-16-2024 ambulatory 11/16/2024 10:00 AM EDT [facility] [address] [place] [address] Coral Hernández, PhD [address] [place] [address] pnes Neurology Comment on above: pnes Start: 11-09-2024 End: 11-09-2024 ambulatory 11/09/2024 10:00 AM EDT [facility] [address] [place] [address] Coral Hernández, PhD [address] [place] [address] pnes Neurology Comment on above: pnes Start: 11-02-2024 End: 11-02-2024 ambulatory 11/02/2024 10:00 AM EDT [facility] [address] [place] [address] Coral Hernández, PhD [address] [place] [address] pnes Neurology Comment on above: pnes Start: 10-26-2024 End: 10-26-2024 ambulatory 10/26/2024 10:00 AM EDT [facility] Neurology [address] [place] [address] Coral Hernández, PhD [address] [place] [address] [facility] Neurology Comment on above: pnes Start: 10-19-2024 End: 10-19-2024 ambulatory 10/19/2024 10:00 AM EST [facility] [address] [place] [address] Coral Hernández, PhD [address] [place] [address] [facility] Neurology Comment on above: pnes Start: 10-12-2024 End: 10-12-2024 ambulatory 10/12/2024 10:00 AM EST [facility] [address] [place] [address] Coral Hernández, PhD [address] [place] [address] [facility] Neurology Comment on above: pnes Start: 10-05-2024 End: 10-05-2024 ambulatory 10/05/2024 10:00 AM EST [facility] [address] [place] [address] Coral Hernández, PhD [address] [place] [address] [facility] Neurology Comment on above: pnes Start: 09-28-2024 End: 09-28-2024 ambulatory 09/28/2024 10:00 AM EST [facility] [address] [place] [address] Coral Hernández, PhD [address] [address] [facility] Neurology Comment on above: pnes Start: 09-21-2024 End: 09-21-2024 ambulatory 09/21/2024 10:00 AM EST [facility] [address] [place] [address] Coral Hernández, PhD [address] [place] [address] [facility] Neurology Comment on above: pnes Start: 09-14-2024 End: 09-14-2024 ambulatory 09/14/2024 10:00 AM EST [facility]rology [address] [place] [address] Coral Hernández, PhD [address] [place] [address] [facility] Neurology Comment on above: pnes Start: 08-15-2024 Medicare Advantage Annual Wellness Visit Medicare Advantage Annual Wellness Visit [facility] Start: 06-01-2024 End: 06-01-2024 ambulatory 06/01/2024 11:00 AM EDT [facility] Neurology [address] [place] [address] Coral Hernández, PhD [address] [place] [address] [facility] Comment on above: PNES Start: 04-28-2024 Subsequent hospital visit by physician 04/28/2024 Hospital Encounter [facility] [address] [place] [address] Cristel Pablo MD [address] [place] [address] Unspecified convulsions [R56.9] [facility] Comment on above: Unspecified convulsions [R56.9] Start: 04-28-2024 End: 04-28-2024 Patient encounter procedure 04/28/2024 10:00 AM EDT Office Visit Neurology [address] [place] [address] ADMIT Neurology Comment on above: ADMIT Start: 04-15-2024 Covid-19 Vaccine ( season) Covid-19 Vaccine ( season) [facility] Start: 04-15-2024 Influenza vaccination Influenza Vaccine (#1) [facility] Start: 04-15-2023 Covid-19 Vaccine ( season) Covid-19 Vaccine ( season) [facility] Start: 04-15-2022 Influenza vaccination INFLUENZA (#1) [facility] Start: 09-29-2021 DTaP/Tdap/Td vaccine (7 - Td) DTaP/Tdap/Td vaccine (7 - Td) [place] Start: 04-15-2020 Influenza vaccination Flu vaccine (Season Ended) [place] Start: 01-25-2020 Annual Wellness Visit (AWV) Annual Wellness Visit (AWV) [place] Start: 2019 PAP TESTING PAP TESTING [facility] Start: 2019 Screening for malignant neoplasm of cervix [facility] Start: 2016 Diabetes mellitus screening Diabetes Screening [facility] Start: 2016 HEPATITIS C SCREENING HEPATITIS C SCREENING [facility] Start: 2016 Hepatitis C screening Hepatitis C Screening [facility] Start: 2016 HIV SCREENING HIV SCREENING [facility] Start: 2016 HIV screening HIV Screening [facility] Start: 2014 Screening for Chlamydia trachomatis Chlamydia screen [place], [place] Start: 2013 HIV screening HIV screen [place] Start: 2013 HPV Vaccine (1 - 3-dose series) HPV Vaccine (1 - 3-dose series) [facility] Start: 2013 HPV Vaccines (1 - 3-dose series) HPV Vaccines (1 - 3-dose series) [facility] Start: 2012 PEDS TO ADULT TRANSITION ANNUAL ASSESSMENT PEDS TO ADULT TRANSITION ANNUAL ASSESSMENT [facility] Start: 2010 Adult depression screening assessment DEPRESSION SCREENING [facility] Start: 2010 Depression Monitoring Depression Monitoring [facility] Start: 2010 PEDS TO ADULT TRANSITION INITIAL DISCUSSION PEDS TO ADULT TRANSITION INITIAL DISCUSSION [facility] Start: 2009 HPV vaccine (1 - 2-dose series) HPV vaccine (1 - 2-dose series) [facility] Start: 2008 MENINGOCOCCAL B: Consider based on risk (1 of 2 - Risk Bexsero 2-dose series) MENINGOCOCCAL B: Consider based on risk (1 of 2 - Risk Bexsero 2-dose series) [facility] Start: 1998 HEPATITIS B (3 of 3 - 3-dose series) HEPATITIS B (3 of 3 - 3-dose series) [facility] Start: 1998 Hepatitis B Vaccine (3 of 3 - 3-dose series) Hepatitis B Vaccine (3 of 3 - 3-dose series) [facility] Start: 1998 Hepatitis B Vaccines (3 of 3 - 3-dose series) Hepatitis B Vaccines (3 of 3 - 3-dose series) [facility] Start: 1998 HIV screening HIV Screening [facility] Start: 1998 Lipid panel Lipid Panel [facility] Bacteria identified in Urine by Culture BACTERIAL CULTURE, URINE Microbiology Routine Acute cystitis with hematuria 10/08/2024 2:27 PM EST [facility] Work Phone: End: 07-23-2023 EGD DIAGNOSTIC EGD DIAGNOSTIC Endoscopy Routine Gastroesophageal reflux disease, unspecified whether esophagitis present 1 Occurrences starting 07/23/2022 until 07/23/2023 [facility] Work Phone: Comment on above: 1 Occurrences starting 07/23/2022 until 07/23/2023 End: 08-02-2023 EGD DIAGNOSTIC EGD DIAGNOSTIC Endoscopy Routine Gastroesophageal reflux disease, unspecified whether esophagitis present 1 Occurrences starting 08/02/2022 until 08/02/2023 [facility] Work Phone: Comment on above: 1 Occurrences starting 08/02/2022 until 08/02/2023 End: 04-09-2025 EPIL EEG LEAD PLACEMENT EPIL EEG LEAD PLACEMENT NEUROLOGY Routine Convulsions, unspecified convulsion type (HCC) 1 Occurrences starting 04/09/2024 until 04/09/2025 [facility] Work Phone: Comment on above: 1 Occurrences starting 04/09/2024 until 04/09/2025 EPIL VEEG ADMIT TO EMU/PMU EPIL VEEG ADMIT TO EMU/PMU NEUROLOGY Routine Convulsions, unspecified convulsion type (HCC) Ordered: 04/09/2024 [facility] Comment on above: Ordered: 04/09/2024 End: 08-22-2023 Radiologic exam esophagus single contrast study XR ESOPHAGRAM Radiology Routine Gastroesophageal reflux disease, unspecified whether esophagitis present 1 Occurrences starting 07/23/2022 until 08/22/2023 [facility] Work Phone: Comment on above: 1 Occurrences starting 07/23/2022 until 08/22/2023 SURGICAL PATHOLOGY [facility] Work Phone: Comment on above: Release Upon Ordering for 1 Occurrences starting 07/30/2022, 1 completed [facility] Immunizations Immunization Date Immunization Notes Care Provider Jade arreola 06-15-2022 influenza virus vaccine, unspecified formulation Edwin Lock MD Work Phone: [facility] 03-04-2017 tetanus and diphther ia toxoids, adsorbed, preservative free, for adult use (2 Lf of tetanus toxoid and 2 Lf of diphtheria toxoid) Casey Harry PA-C Work Phone: [facility] 05-19-2013 influenza virus vaccine, unspecified formulation Casey Harry PA-C Work Phone: [facility] Work Phone: 09-29-2011 Meningococcal, MCV4, unspecified conjugate formulation(groups A, C, Y and W-135) Casey Harry PA-C Work Phone: [facility] Work Phone: 09-29-2011 tetanus toxoid, redu enmanuel diphtheria toxoid, and acellular pertussis vaccine, adsorbed Casey Harry PA-C Work Phone: [facility] Work Phone: 09-29-2011 varicella virus vaccine Casey Harry PA-C Work Phone: [facility] Work Phone: 07-20-2006 influenza virus vaccine, unspecified formulation Casey Harry PA-C Work Phone: [facility] Work Phone: 06-21-2005 influenza virus vaccine, unspecified formulation Casey Harry PA-C Work Phone: [facility] Work Phone: 02-28-2004 diphtheria, tetanus toxoids and acellular pertussis vaccine Casey Harry PA-C Work Phone: [facility] Work Phone: 02-28-2004 measles, mumps and rubella virus vaccine Casey Harry PA-C Work Phone: [facility] Work Phone: 02-28-2004 poliovirus vaccine, inactivated Casey Harry PA-C Work Phone: [facility] Work Phone: 07-20-1999 diphtheria, tetanus toxoids and acellular pertussis vaccine Casey Harry PA-C Work Phone: [facility] Work Phone: 07-20-1999 haemophilus influenz ae type b vaccine, HbOC conjugate Casey Harry PA-C Work Phone: [facility] Work Phone: 07-20-1999 poliovirus vaccine, inactivated Casey Harry PA-C Work Phone: [facility] Work Phone: 07-20-1999 varicella virus vaccine Casey Harry PA-C Work Phone: [facility] Work Phone: 04-06-1999 measles, mumps and rubella virus vaccine Casey Harry PA-C Work Phone: [facility] Work Phone: 1998 diphtheria, tetanus toxoids and acellular pertussis vaccine Casey Harry PA-C Work Phone: [facility] Work Phone: 1998 haemophilus influenz ae type b vaccine, HbOC conjugate Casey Harry PA-C Work Phone: [facility] Work Phone: 1998 hepatitis B vaccine, pediatric or pediatric/adolescent dosage Casey Harry PA-C Work Phone: [facility] Work Phone: 1998 hepatitis B vaccine, unspecified formulation Casey Harry PA-C Work Phone: [facility] 1998 diphtheria, tetanus toxoids and acellular pertussis vaccine Casey Harry PA-C Work Phone: [facility] Work Phone: 1998 haemophilus influenz ae type b vaccine, HbOC conjugate Casey Hrary PA-C Work Phone: [facility] Work Phone: 1998 poliovirus vaccine, inactivated Casey Harry PA-C Work Phone: [facility] Work Phone: 1998 diphtheria, tetanus toxoids and acellular pertussis vaccine Casey Harry PA-C Work Phone: [facility] Work Phone: 1998 haemophilus influenz ae type b vaccine, HbOC conjugate Casey Harry PA-C Work Phone: [facility] Work Phone: 1998 poliovirus vaccine, inactivated Casey Harry PA-C Work Phone: [facility] Work Phone: 1998 hepatitis B vaccine, pediatric or pediatric/adolescent dosage Casey Harry PA-C Work Phone: [facility] Work Phone: 1998 hepatitis B vaccine, pediatric or pediatric/adolescent dosage Casey Harry PA-C Work Phone: [facility] Work Phone: Payers Date Payer Category Payer Private Health Insurance [id number] 2023 Self-pay 2023 Medicare (Managed Care) [employer] O [id number] 2023 Medicare HMO ANTHEM DUAL ADVA NTAGE [id number] 2022 Unknown [id number] 2018 Unknown [id number] 2018 Unknown [id number] 2018 Medicare BCBS MEDICARE AN THEM MEDIBLUE ESSENTIAL/PLUS xxxxxxxxxxxx 2018-Present [address] [address] [place] [address] xxxxxxxxxxxx [id number] 2018 Medicaid [id number] 2018 Medicaid [id number] 1998 Unknown [id number] .627 1998 Unknown [id number] .627 1998 Unknown [id number] .627 1998 Unknown [id number] .627 1998 Unknown [id number] .627 1998 Unknown [id number] .627 1998 Unknown [id number] 2.840.1.340960.3.579.2 .62 1998 Unknown [id number] [id number] .627 1998 Unknown [id number] 2.840.1.311931.3.579.2 .62 1998 Unknown [id number] 2.840.1.414741.3.579.2 .627 1998 Unknown [id number] 2.840.1.248296.3.579.2 .627 Unknown [id number] Unknown [id number] .462 Unknown [id number] 2.840.1.644601.3.579.2 .462 Unknown [id number] 2.840.1.808389.3.579.2 .462 Unknown [id number] 2.840.1.916351.3.579.2 .462 Unknown [id number] 2.840.1.232004.3.579.2 .462 Unknown [id number] 2.840.1.518887.3.579.2 .462 Unknown [id number] .462 Unknown [id number] .462 Social History Date Type Detail Facility Start: 01-25-2020 End: 02-04-2024 Tobacco smoking status NEIS Never smoker [place] Start: 01-25-2020 End: 10-19-2024 Alcohol intake Current non-drinker of alcohol (finding) [facility] [place], [place] Sex Assigned At Not on file [facility] [employer]- YUNIER VALDEZ Exposure to SARS-CoV -2 (event) Unable to assess [facility] [employer]- [place] Sex Assigned At [facility] Start: 11-20-2011 Tobacco use and exposure Smoke less tobacco non-user [facility] Start: 1998 Sex Assigned At Female [facility] Start: 04-21-2022 End: 07-16-2022 Exposure to SARS-CoV-2 (event) Not sure [facility] Start: 04-09-2024 End: 03-07-2025 History of Social function [facility] Start: 04-09-2024 End: 03-07-2025 Tobacco use panel [facility] Adult Depression Screening Assessment 3 [facility] Start: 03-16-2021 Gender identity Identifies as female gender (finding) [facility] Start: 03-16-2021 Sexual orientation Bisexual (finding ) [facility] Start: 01-01-2018 End: 03-15-2022 Sex Female (finding) [facility] Start: 11-16-2024 End: 03-07-2025 Alcoholic beverage intake Lifetime non-drinker (finding) [facility] Goals Date Patient Goal Desired Activity /State Personal health goal Functional Status Date Assessment Result Facility 08-21-2024 Functional Status Standard Safet y ID band on, Allergy Band on, Call device within reach, Bed in low position, Wheels locked, Upper/Half-Length side-rails up, Bedside Cart Locked, Safety level maintained [facility] 06-20-2024 Functional Status Independent [facility] 06-19-2024 Functional Status Standard Safet y ID band on, Allergy Band on, Call device within reach, Bed in low position, Wheels locked, personal items within reach, Bedside Cart Locked, Visitor at bedside [facility] 05-03-2024 Are you deaf, or do you have serious difficulty hearing No 05/03/2024 9:38 AM Suzy Singh RN No [facility] 05-03-2024 Are you blind, or do you have serious difficulty seeing, even when wearing glasses No 05/03/2024 9:38 AM Suzy Singh RN No [facility] 05-03-2024 Do you have serious difficulty walking or climbing stairs No 05/03/2024 9:38 AM Suzy Singh RN No [facility] 05-03-2024 Do you have difficul ty dressing or bathing No 05/03/2024 9:38 AM Suzy Singh RN No [facility] 05-03-2024 Because of a physica l, mental, or emotional condition, do you have difficulty doing errands alone such as visiting a physician's office or shopping No 05/03/2024 9:38 AM Suzy Singh RN No [facility] 02-04-2024 Functional Status Standard Safet y ID band on, Allergy Band on, Call device within reach, Bed in low position, Wheels locked, Bedside Cart Locked, Visitor at bedside, Safety level maintained [facility] 09-03-2023 Functional Status ID band on, Allergy Band on, Call device within reach, Bed in low position, Wheels locked, Upper/Half-Length side-rails up, Phone within reach, Visitor at bedside, Safety level maintained [facility] 05-29-2023 Functional Status Ambulation in [facility] 02-19-2023 Functional Status ID band on, Call device within reach, Bed in low position, Wheels locked, Visitor at bedside, Safety level maintained [facility] 11-28-2022 Functional Status Independent [facility] 11-28-2022 Functional Status Standard Safet y ID band on, Call device within reach, Bed in low position, Wheels locked, Visitor at bedside, Safety level maintained [facility] 11-14-2022 Functional Status Independent [facility] 11-14-2022 Functional Status Standard Safet y ID band on, Call device within reach, Bed in low position, Wheels locked, Visitor at bedside, Safety level maintained [facility] 10-17-2022 Functional Status Standard Safet y ID band on, Allergy Band on, Call device within reach, Bed in low position, Wheels locked, Upper/Half-Length side-rails up, Phone within reach, personal items within reach, Visitor at bedside [facility] 08-24-2022 Functional Status Assistive Device None A [facility] 07-16-2022 Functional Status Independent [facility] 06-07-2022 Functional Status Up to bathroom [facility] 05-27-2022 Functional Status ID band on, Allergy Band on, Call device within reach, Bed in low position, Wheels locked, Visitor at bedside [facility] 05-21-2022 Functional Status Up ad maria a [facility] 05-21-2022 Functional Status [facility] 04-17-2022 Functional Status ID band on, Call device within reach, Bed in low position, Wheels locked, Upper/Half-Length side-rails up [facility] 03-20-2022 Functional Status Independent [facility] 03-20-2022 Functional Status Standard Safet y ID band on, Allergy Band on, Call device within reach, Bed in low position, Wheels locked, Upper/Half-Length side-rails up, Visitor at bedside, Safety level maintained [facility] 02-06-2022 Functional Status ID band on, Allergy Band on, Call device within reach, Bed in low position, Wheels locked, Upper/Half-Length side-rails up, Phone within reach, personal items within reach, Bedside Cart Locked [facility] 11-26-2021 Functional Status [facility] Mental Status Date Assessment Result Facility 08-21-2024 Mental Status Orientation Oriented x 4 [facility] 06-20-2024 Mental Status Orientation Oriented x 4 [facility] 06-19-2024 Mental Status [facility] 05-03-2024 Because of a physica l, mental, or emotional condition, do you have serious difficulty concentrating, remembering, or making decisions No 05/03/2024 9:38 AM Suzy Singh, FAN No [facility] 02-04-2024 Mental Status Oriented x 4 [facility] 09-03-2023 Mental Status Oriented x 4 [facility] 05-29-2023 Mental Status Oriented x 4 [facility] 02-19-2023 Mental Status Orientation Oriented x 4 [facility] 11-28-2022 Mental Status Orientation Oriented x 4 [facility] 11-14-2022 Mental Status Orientation Oriented x 4 [facility] 10-17-2022 Mental Status Orientation Oriented x 4 [facility] 08-24-2022 Mental Status Orientation Oriented x 4 [facility] 07-16-2022 Mental Status Orientation Oriented x 4 [facility] 06-07-2022 Mental Status Orientation Oriented x 4 [facility] 05-27-2022 Mental Status Oriented x 4 [facility] 05-21-2022 Mental Status Orientation Oriented x 4 [facility] 05-21-2022 Mental Status [facility] 04-17-2022 Mental Status Oriented x 4 [facility] 03-20-2022 Mental Status Orientation Oriented x 4 [facility] 03-20-2022 Mental Status [facility] 02-06-2022 Mental Status Oriented x 4 [facility] 11-26-2021 Mental Status [facility] Clinical Notes 06-16-2009 to 04-02-2025 Freddie Ramirez MD - 03/07/2025 9:00 AM Edwin Pereira MD - 03/04/2025 2:00 PM EDTTelephone Encounter - Freddie Ramirez MD - 11/26/2024 5:06 PM Willy Ramirez MD - 11/16/2024 8:20 AM EDT Note Date & Type Note Facility 04-02-2025 Hospital Discharge instructions Patient Education 04/02/2025 21:55:44 Headache, Migraine, Classic Migraine Headache This often [...] of your face Difficulty talking or seeing [id number] [employer]. [address] [place] [address], [place] [address]. All rights reserved. This information is not intended as a substitute for professional medical care. Always follow your healthcare professional's instructions. Follow Up Care 04/02/2025 20:52:12 With:Go to emergency room if symptoms worsen Address:Unknown When:2-4 days With:FANI BAEZ MD, Surgery Address: [address] [place] [address]- When:2-4 days [facility] 04-02-2025 Note Discharge Instructions Thank you for allowing [facility] to assist you with your healthcare needs. The following is important discharge information regarding your hospital visit. Diagnosis from Today's Visit Migraine headache What to Do Next Instructions from Your Care Team Please follow-up outpatient with your primary provider. Please be sure to inform them that [facility] Return to the emergency department for any acute worsening symptoms or concerns. No qualifying data available. Post Acute Orders No qualifying data available. You Need to Schedule the Following Appointments Follow Up with Go to emergency room if symptoms worsen When:Within 2-4 days Follow Up with FANI BAEZ MD, Surgery When:Within 2-4 days Where:[address] [place] [address]- Allergies Dairy products Glutens azithromycin Medications Please ask your primary doctor [...] needed for as needed for spasm Unchanged dicyclomine (dicyclomine 10 mg oral capsule) 1 cap by mouth Four (4) times a day Duration: 5 Days Unchanged doxycycline (doxycycline hyclate 100 mg oral [...] Days as directed on package labeling Unchanged pantoprazole (pantoprazole 40 mg oral enteric coated tablet) Unchanged rimegepant (Nurtec ODT 75 mg oral tablet, disintegrating) Unchanged topiramate (Topamax 50 mg oral tablet) [...] of your face Difficulty talking or seeing 6402-7367 [employer]. [address] [place] [address]. All rights reserved. This information is not intended as a substitute for professional medical care. Always follow your healthcare professional's instructions. Additional Information VACCINATE! IT SAVES LIVES! Members of the community who have not yet received the COVID-19 vaccine and would like to receive it can visit one of [facility] vaccine clinics. There are many vaccine clinic locations within the [facility]. For locations and available times, please visit [email or web address] [email or web address] It is important to note that some COVID mobile vaccine clinics are held outdoors and may be canceled in rainy or stormy conditions. To learn more about pediatric vaccinations (ages 5-11), we invite you to visit the [facility] webpage. https://www.[email or web address].org/pa ges/7106-Ewqiq-Nlwpqswnlgw-Freque bgwb-Ptozn-Ymohqmvdq.html To learn more about the COVID-19 vaccine, we invite you to visit the CDC website for a list of frequently asked questions. https://www.cdc.gov/coronavirus/2 019-ncov/vaccines/faq.html [facility] Patient Portal Access Instructions: Stay connected with your healthcare team and access your personal medical information anytime with the [facility] Patient Portal. If you would like a full copy of your medical records please contact the [facility] Medical Records Department Tuesday through Tuesday between 8a.m. and 4:30p.m. Please follow the directions below to access the portal: 1.Access the email account you provided upon registration to the hospital.2.Look for an invitation email from [facility].3.Open the email and access the invitation link: Accept Invitation to [facility]4.Fill in the required julian to create your account. Sign into [email or web address] with your username and password that you [...] you will allow to register on the [facility] Patient Portal for access to your information. You can also access the [facility] Patient Portal on the [employer]. Simply click on Health Records under Health Data and then click on the [email or web address] logo. HOW TO SAFELY DISPOSE OF PRESCRIPTION [...] Call your local pharmacy or go to http://Admaxim.Rewarder/9N4Fe8u to find one close to you.3.Make use of household items: Use cat litter or old coffee grounds to dispose medications if other options are not available. Mix your drugs with these household products, seal them in an airtight container and throw it into the garbage. Call [facility]: [phone] to be sure your drugs can be [...] been reviewed and explained to me and I,DONNIE MALDONADO M understand my current condition and have read and understand these discharge instructions. I have received a written copy of the plan/instructions. If I have questions, I am aware that I should contact my doctor. Patient/Tunnel Mucker Signature: Date/Time: Relationship to Patient: ____ Witness Name/Signature: Date/Time: [facility] 03-22-2025 Hospital Discharge instructions Patient Education 03/22/2025 16:50:33 Headache, Unspecified Headache, Unspecified A number of [...] face You have trouble talking or seeing [phone] [employer]. [address] [place] [address], [place] [address]. All rights reserved. This information is not intended as a substitute for professional medical care. Always follow your healthcare professional's instructions. Follow Up Care 03/22/2025 16:36:51 With:Go to emergency room if symptoms worsen Address:Unknown When:2-4 days With:FANI BAEZ MD, Surgery Address: [address] [place] [address]- When:2-4 days [facility] 03-22-2025 Note Discharge Instructions Thank you for allowing [facility] to assist you with your healthcare needs. The following is important discharge information regarding your hospital visit. Diagnosis from Today's Visit Headache What to Do Next Instructions from Your Care Team No qualifying data available. Post Acute Orders No qualifying data available. You Need to Schedule the Following Appointments Follow Up with Go to emergency room if symptoms worsen When:Within 2-4 days Follow Up with FANI BAEZ MD, Surgery When:Within 2-4 days Where:[address] [place] [address]- Allergies Dairy products Glutens azithromycin Medications Please ask your primary doctor [...] needed for as needed for spasm Unchanged dicyclomine (dicyclomine 10 mg oral capsule) 1 cap by mouth Four (4) times a day Duration: 5 Days Unchanged doxycycline (doxycycline hyclate 100 mg oral [...] Days as directed on package labeling Unchanged pantoprazole (pantoprazole 40 mg oral enteric coated tablet) Unchanged rimegepant (Nurtec ODT 75 mg oral tablet, disintegrating) Unchanged topiramate (Topamax 50 mg oral tablet) [...] face You have trouble talking or seeing [phone] [employer]. [address] [facility], [place] [address]. All rights reserved. This information is not intended as a substitute for professional medical care. Always follow your healthcare professional's instructions. Additional Information VACCINATE! IT SAVES LIVES! Members of the community who have not yet received the COVID-19 vaccine and would like to receive it can visit one of [facility] vaccine clinics. There are many vaccine clinic locations within the State. For locations and available times, please visit [email or web address] [email or web address] It is important to note that some COVID mobile vaccine clinics are held outdoors and may be canceled in rainy or stormy conditions. To learn more about pediatric vaccinations (ages 5-11), we invite you to visit the [facility] webpage. https://www.akGift[facility].org/pa ges/8929-Qjnyv-Ivwynbiwmbe-Freque pcsk-Ktmnr-Livghgtub.html To learn more about the COVID-19 vaccine, we invite you to visit the CDC website for a list of frequently asked questions. https://www.cdc.gov/coronavirus/2 019-ncov/vaccines/faq.html [facility] Patient Portal Access Instructions: Stay connected with your healthcare team and access your personal medical information anytime with the [facility] Patient Portal. If you would like a full copy of your medical records please contact the [facility] Medical Records Department Tuesday through Tuesday between 8a.m. and 4:30p.m. Please follow the directions below to access the portal: 1.Access the email account you provided upon registration to the hospital.2.Look for an invitation email from [facility].3.Open the email and access the invitation link: Accept Invitation to [facility]4.Fill in the required julian to create your account. Sign into [email or web address] with your username and password that you [...] you will allow to register on the [facility] Patient Portal for access to your information. You can also access the [facility] Patient Portal on the [employer] ifeanyi. Simply click on Health Records under Health Data and then click on the [facility] logo. HOW TO SAFELY DISPOSE OF PRESCRIPTION [...] Call your local pharmacy or go to http://Admaxim.Rewarder/3I0Ql4r to find one close to you.3.Make use of household items: Use cat litter or old coffee grounds to dispose medications if other options are not available. Mix your drugs with these household products, seal them in an airtight container and throw it into the garbage. Call [facility]: [phone] to be sure your drugs can be [...] aware that I should contact my doctor. Patient/Tunnel Mucker Signature: Date/Time: Relationship to Patient: ____ Witness Name/Signature: Date/Time: [facility] 03-07-2025 History of Present illness Narrative Images from the original note were not included. [address] [facility] [address] Dept: [phone] Dept Loc: [phone] Freddie Ramirez MD CHIEF COMPLAINT: Chief Complaint Patient presents with Follow-up Migraine HISTORY OF PRESENT ILLNESS: The patient is a 24 y.o. person who returns for her migraines. She reports that the [facility] has worked miracles. She reports that she has been Biorbital and bioccipital. Throbbing. Is the BAUER longer than four hours? Yes (Migraine) Photophobia? Yes (Migraine) Phonophobia? Yes (Migraine) Nausea/Vomiting? Yes, has to take Zofran (Migraine) Exacerbated by Movement? Yes Blurry vision with headaches. Dizziness with headaches. She reports that she is having less than 8 days of migraine per month [facility] that [facility] She has tried sumatriptan and naratriptan and they failed. Aimovig caused rash. She has not had a chance to have a sleep study as of yet. Still daytime sleepiness. She reports that she has dizziness and balance issues. She feels that heat and a fan blowing on her contributes to her dizziness. Past Medical History: has a past medical history of ADHD (attention deficit hyperactivity disorder) (2020), Anxiety, Ataxia (2023), Brain concussion (2014), Difficulty walking (2023), Head injury (2014), Migraine without aura, not intractable, without status migrainosus, Mixed hyperlipidemia, Recurrent major depressive disorder, in remission (HCC), Seasonal allergies, Seizures (HCC) (09/06/2012), Social anxiety disorder, Syncope (09/06/2012), Vitamin D deficiency, and Weakness of limb. Past Surgical History: has a past surgical history that includes Femur Surgery (2005); Femur Surgery (2006); [facility] tooth extraction (02/2018); and Tonsillectomy (2004). Medications: Current Outpatient Medications: acetaminophen (Tylenol) 500 MG tablet, Take 500 mg by mouth every 6 hours as needed., Disp: , Rfl: busPIRone (Buspar) 30 MG tablet, Take 30 mg by mouth 2 times daily., Disp: , Rfl: DULoxetine (Cymbalta) [address] capsule, Take 20 mg by mouth 2 times daily., Disp: , Rfl: gabapentin (Neurontin) 100 MG capsule, Take 100 mg by mouth Nightly. (Patient taking differently: Take 100 mg by mouth Nightly. 100 in the am and 300 in the pm), Disp: , Rfl: ibuprofen 200 MG tablet, Take 200 mg by mouth 3 times daily., Disp: , Rfl: melatonin 5 MG tablet, Take 1 tablet by mouth every evening., Disp: , Rfl: ondansetron ODT (Zofran-ODT) 4 MG disintegrating tablet, DISSOLVE 1 TABLET IN MOUTH EVERY 8 HOURS NEEDED FOR NAUSEA, Disp: , Rfl: pantoprazole (ProtoNix) 40 MG EC tablet, Take 1 tablet by mouth daily., Disp: , Rfl: sucralfate (Carafate) 1 GM/10ML suspension, 10 ml Orally ac and hs prn, Disp: , Rfl: topiramate (Topamax) 100 MG tablet, Take 1 tablet (100 mg) by mouth 2 times daily., Disp: 180 tablet, Rfl: 3 desogestrel-ethinyl estradiol (Apri) 0.15-30 MG-MCG tablet, Take 1 tablet by mouth., Disp: , Rfl: Nurtec 75 MG tablet dispersible, Take 1 tablet (75 mg) by mouth every other day., Disp: 15 tablet, Rfl: 11 Allergies: Azithromycin, Sumatriptan, and Aimovig [erenumab-aooe] Social History: Social History Socioeconomic History Marital status: Single Spouse name: Not on file Number of children: Not on file Years of education: Not on file Highest education level: Not on file Occupational History Not on file Tobacco Use Smoking status: Never Smokeless tobacco: Never Substance and Sexual Activity Alcohol use: Never Drug use: No Comment: thc gummies 3 mg Sexual activity: Not Currently Partners: Female, Male control/protection: Condom Male Comment: On control pill Other Topics Concern Not on file Social History Narrative Not on file Social Drivers of Health Financial Resource Strain: Not on file Food Insecurity: Not on file Transportation Needs: Not on file Physical Activity: Not on file Stress: Not on file Social Connections: Not on file Intimate Partner Violence: Not on file Housing Stability: Not on file Family History: Family History Problem Relation Name Age of Onset Other ([address]53) Paternal Grandmother Deedee Biro Hypertension Paternal Grandmother Deedee Biro Alzheimer's disease Paternal Grandmother Deedee Biro Dementia Paternal Grandmother Deedee Biro Depression Paternal Grandmother Deedee Biro Mental illness Maternal Grandmother Giselle Tortorich Depression Maternal Grandmother Giselle Tortorich Migraines Maternal Grandmother Giselle Tortorich Seizures Maternal Grandmother Giselle Tortorich Parkinsonism Maternal Grandfather Hypertension Father Greg Maldonado Other ([id number]) Father Greg Genaoo Ataxia Father Greg Genaoo Depression Father Greg Genaoo Diabetes Mother Queenie Biro Anxiety disorder Mother Queenie Biro Fibromyalgia Mother Queenie Biro Migraines Mother Queenie Biro Cancer Paternal Grandfather Cancer Mother's Brother Anxiety disorder Father's Sister Lavinia Biro Depression Father's Sister Lavinia Biro Migraines Father's Sister Lavinia Biro REVIEW OF SYSTEMS: Review of Systems Constitutional: Negative for appetite change, chills, diaphoresis, fever and unexpected weight change. HENT: Negative for dental problem and mouth sores. Eyes: Negative for discharge and itching. Respiratory: Negative for chest tightness. Cardiovascular: Negative for chest pain and leg swelling. Gastrointestinal: Negative for rectal pain and vomiting. Endocrine: Negative for polydipsia, polyphagia and polyuria. Genitourinary: Negative for decreased urine volume, flank pain and genital sores. Musculoskeletal: Positive for back pain. Negative for arthralgias. Skin: Negative for color change. Allergic/Immunologic: Negative for food allergies and immunocompromised state. Neurological: Positive for dizziness, syncope and headaches. Hematological: Negative for adenopathy. Does not bruise/bleed easily. Psychiatric/Behavioral: Negative for agitation, behavioral problems, decreased concentration, sleep disturbance and suicidal ideas. PHYSICAL EXAM: Vitals: BP 119/80 (BP Location: Right arm, Patient Position: Sitting, BP Cuff Size: Large adult) Pulse 98 Ht 5' 9 (1.753 m) Wt (!) 304 lb (138 kg) BMI 44.89 kg/m General Appearance: Patient is in no apparent distress. Head is normocephalic, atraumatic Cardiovascular: Regular rate and rhythm. No heart murmurs. No carotid bruit Neurologic: Mentation: Alert and oriented x 3 [address], [address] and time. Speech and Language: Speech and language normal Concentration and Attention: Concentration normal Memory: Memory grossly normal Fund of Knowledge: Fund of knowledge normal Cranial Nerves: II, III, IV, V, , VII, VIII, IX, X, XI, XII tested and were intact including fundoscopic exam (optic discs) and visual field to confrontation. Motor: Strength:Strength 5 out of 5 with normal tone Alternating Movements: Normal Cogwheel Rigidity: None Tone: Tone is normal Tremor / Involuntary Movements: None Deep Tendon Reflexes: 1 out of 4 symmetrical in all four limbs. Sensory: Decreased pinprick in the posterior lower right leg, but otherwise normal in the four limbs. Coordination: Normal coordination upper and lower extremities Gait and Station: Station is normal. Gait is normal DATA CBC: Lab Results Component Value Date WBC 6.6 01/25/2020 RBC 4.60 01/25/2020 HGB 14.3 01/25/2020 MCV 90.4 01/25/2020 MCH 31.1 01/25/2020 MCHC 34.5 01/25/2020 RDW 12.8 01/25/2020 MPV 6.3 (L) 01/25/2020 CMP: Lab Results Component Value Date NA 140 01/25/2020 K 4.1 01/25/2020 CL 109 (H) 01/25/2020 CO2 20 (L) 01/25/2020 BUN 10 01/25/2020 CREATININE 0.68 01/25/2020 GLUCOSE 96 01/25/2020 PROT 7.2 01/25/2020 CALCIUM 8.7 01/25/2020 BILITOT 0.2 01/25/2020 ALKPHOS 76 01/25/2020 AST 18 01/25/2020 BMP: Lab Results Component Value Date NA 140 01/25/2020 K 4.1 01/25/2020 CL 109 (H) 01/25/2020 CO2 20 (L) 01/25/2020 BUN 10 01/25/2020 CREATININE 0.68 01/25/2020 CALCIUM 8.7 01/25/2020 GLUCOSE 96 01/25/2020 ECG 12 lead [employer] [facility] Test Date: 2020-01-25 Pat Name: Donnie Maldonado Department: 01 Room: 15 Gender: F Sand Miller: WILLIAM : 2000 Requested By: HENRIK ABRAMS Order Number: [id number] Reading MD: Casey Ray Measurements Intervals [place] Rate: 89 P: 28 PA: 160 QRS: 73 QRSD: 88 T: -9 QT: 376 QTc: 458 Interpretive Statements SINUS RHYTHM NONSPECIFIC T ABNORMALITIES, ANTERIOR LEADS No previous ECG available for comparison Electronically Signed On 01-26-2020 13:38:30 EDT by Casey Ray EXAM: CT BRAIN WO IVCON Exam Date/Time: 06/13/2024 5:20 PM CLINICAL HISTORY: Head trauma, minor, normal mental status (Age 19-64y) PROCEDURE: Axial CT images of the head from the skull base to vertex are obtained without IV contrast. CT Radiation dose: Integrated CT Dose-Length Product (DLP) for this visit = 715.81 mGy*cm CT Dose Reduction Employed: Automated exposure control(AEC) and iterative recon FINDINGS: No acute intracranial hemorrhage, shift of midline structures or mass effect. Ventricles and sulci are symmetric with normal size. No extra-axial collections. No depressed calvarial fractures. Minimal opacification of the left maxillary and some right ethmoid sinuses. The remaining visualized paranasal sinuses and mastoid air cells are clear. IMPRESSION IMPRESSION: No acute intracranial abnormality. Operating Room Scheduler: PSCB Transcribe Date/Time: Jun 13 2024 5:28P Dictated by : ASHLEY BANKS MD [facility], Epilepsy Center EPIL VEEG Monitoring Adult EMU [[id number]] Patient name: DONNIE MALDONADO Date of test: 05/03/2024 Duration: 573 Requested By: HERNAN SRIVASTAVA Staff Physician: Corey Oneil EEG Fellow or [place]: Abby Devine History: Patient is 24 years old. Paroxysmal events onset at age 12. Initial episodes were characterized by everything going black and hearing goes, like someone's covering her ears. Symptoms last about 10 seconds before she loses consciousness. We have clarified that now 10% of the events resulted in 'black outs'. She often falls and injures herself. In 2012, they were happening every 2 months. After several years of remission, reemerged in 10/2023, twice weekly. Often feels dizzy, lightheaded for hours before episode. Type 1: falls, type 2: stares 1-2 minutes weekly. Also feels increased heat intolerance, for example ambulating to grocery store makes her feel very hot, therefore she uses a motility scooter for going to the grocery stores. Conditions: Awake Classifications: Normal (10-20 Scalp Electrodes, Anterior Temporal Electrodes, Awake) Interictal: Normal, Impression: The video-EEG monitoring has been completed. A report will be finalized and made available in [employer]. Diagnosis: Primary: Seizure-like activity (HCC) Interpreted and electronically signed by Corey Oneil M.D. Date of signin05/09/2024 14:58 [facility] EPIL VEEG Monitoring Adult EMU [[id number]] Patient name: DONNIE MALDONADO Date of test: 05/02/2024 Duration: 1440 Requested By: HERNAN SRIVASTAVA Staff Physician: Corey Oneil EEG Fellow or [place]: Abby Devine History: Patient is 24 years old. Paroxysmal events onset at age 12. Initial episodes were characterized by everything going black and hearing goes, like someone's covering her ears. Symptoms last about 10 seconds before she loses consciousness. We have clarified that now 10% of the events resulted in 'black outs'. She often falls and injures herself. In 2012, they were happening every 2 months. After several years of remission, reemerged in 10/2023, twice weekly. Often feels dizzy, lightheaded for hours before episode. Type 1: falls, type 2: stares 1-2 minutes weekly. Also feels increased heat intolerance, for example ambulating to grocery store makes her feel very hot, therefore she uses a motility scooter for going to the grocery stores. Conditions: Awake Classifications: Normal (10-20 Scalp Electrodes, Anterior Temporal Electrodes, Awake) Interictal: Normal, Impression: Video-EEG monitoring continues. No event this day. Diagnosis: Primary: Seizure-like activity (HCC) Interpreted and electronically signed by Corey Oneil M.D. Date of signin05/09/2024 13:42 [facility] EPIL VEEG Monitoring Adult EMU [[id number]] Patient name: DONNIE MALDONADO Date of test: 05/01/2024 Duration: 1440 Requested By: HERNAN SRIVASTAVA Staff Physician: Corey Oneil EEG Fellow or [place]: Abby Devine History: Patient is 24 years old. Paroxysmal events onset at age 12. Initial episodes were characterized by everything going black and hearing goes, like someone's covering her ears. Symptoms last about 10 seconds before she loses consciousness. We have clarified that now 10% of the events resulted in 'black outs'. She often falls and injures herself. In 2012, they were happening every 2 months. After several years of remission, reemerged in 10/2023, twice weekly. Often feels dizzy, lightheaded for hours before episode. Type 1: falls, type 2: stares 1-2 minutes weekly. Also feels increased heat intolerance, for example ambulating to grocery store makes her feel very hot, therefore she uses a motility scooter for going to the grocery stores. Conditions: Awake Classifications: Normal (10-20 Scalp Electrodes, Anterior Temporal Electrodes, Awake) Ictal: No EEG Change Paroxysmal Event Impression: Video-EEG monitoring continues. 2 events this day without EEG correlate, which are her typical events. Diagnosis: Primary: Seizure-like activity (HCC) Interpreted and electronically signed by Corey Oneil M.D. Date of signin05/09/2024 13:42 Images [facility] EPIL VEEG Monitoring Adult EMU [[id number]] Patient name: DONNIE MALDONADO Date of test: 04/30/2024 Duration: 1440 Requested By: HERNAN SRIVASTAVA Staff Physician: Corey Oneil EEG Fellow or [place]: Abby Devine History: Patient is 24 years old. Paroxysmal events onset at age 12. Initial episodes were characterized by everything going black and hearing goes, like someone's covering her ears. Symptoms last about 10 seconds before she loses consciousness. We have clarified that now 10% of the events resulted in 'black outs'. She often falls and injures herself. In 2012, they were happening every 2 months. After several years of remission, reemerged in 10/2023, twice weekly. Often feels dizzy, lightheaded for hours before episode. Type 1: falls, type 2: stares 1-2 minutes weekly. Also feels increased heat intolerance, for example ambulating to grocery store makes her feel very hot, therefore she uses a motility scooter for going to the grocery stores. Conditions: Awake Classifications: Normal (10-20 Scalp Electrodes, Anterior Temporal Electrodes, Awake) Interictal: Normal, Impression: Video-EEG monitoring continues. No event on this day. Diagnosis: Primary: Seizure-like activity (HCC) Interpreted and electronically signed by Corey Oneil M.D. Date of signin05/09/2024 13:42 [facility] EPIL VEEG Monitoring Adult EMU [[id number]] Patient name: DONNIE MALDONADO Date of test: 04/29/2024 Duration: 1440 Requested By: HERNAN SRIVASTAVA Staff Physician: Corey Oneil EEG Fellow or [place]: Abby Devine History: Patient is 24 years old. Paroxysmal events onset at age 12. Initial episodes were characterized by everything going black and hearing goes, like someone's covering her ears. Symptoms last about 10 seconds before she loses consciousness. We have clarified that now 10% of the events resulted in 'black outs'. She often falls and injures herself. In 2012, they were happening every 2 months. After several years of remission, reemerged in 10/2023, twice weekly. Often feels dizzy, lightheaded for hours before episode. Type 1: falls, type 2: stares 1-2 minutes weekly. Also feels increased heat intolerance, for example ambulating to grocery store makes her feel very hot, therefore she uses a motility scooter for going to the grocery stores. Conditions: Awake Classifications: Normal (10-20 Scalp Electrodes, Anterior Temporal Electrodes, Awake) Ictal: No EEG Change Paroxysmal Event Impression: Video-EEG monitoring continues. 3 events recorded, all of which were typical events without EEG change. Diagnosis: Primary: Seizure-like activity (HCC) Interpreted and electronically signed by Corey Oneil M.D. Date of signin05/09/2024 13:42 [facility] EPIL VEEG Monitoring Adult EMU [[id number]] Patient name: DONNIE MALDONADO Date of test: 04/28/2024 Duration: 630 Requested By: HERNAN SRIVASTAVA Staff Physician: Deon Godwin EEG Fellow or [place]: Abby Devine History: Seizure onset age 12. Initial episodes were characterized by everything going black and hearing goes, like someone's covering her ears. Symptoms last about 10 seconds before she loses consciousness. She often falls and injures herself. In 2012, they were happening every 2 months. After several years of remission, reemerged in 10/2023, twice weekly. Often feels dizzy, lightheaded for hours before episode. Type 1: falls, type 2: stares 1-2 minutes weekly. Conditions: Awake Classifications: Normal (10-20 Scalp Electrodes, Anterior Temporal Electrodes, Awake) Ictal: No EEG Change Paroxysmal Event Impression: Video-EEG monitoring continues. No epileptiform discharges or seizure. One event triggered by photic stimulation, symptoms of nausea and headache, without altered mentation or other symptoms or signs. Diagnosis: Primary: Seizure-like activity (HCC) Interpreted and electronically signed by Deon Godwin M.D., M.S. Date of signin04/30/2024 09:17 [facility] SCALP EEG-VIDEO EVALUATION REPORT Patient name: DONNIE MALDONADO [facility]#: [id number] Dates: 04/28/2024 - 05/03/2024 Total Monitoring Days: 6 Date of : 2000 12:00:00 AM Age: 24 yrs Primary Epileptologist: Edwin Lock M.D. Referring Physician: [place]: Abby Devine Staff: Deon Godwin M.D., M.S. (04/28/2024 12:00:00 AM +00:00), Corey Oneil M.D. (04/29/2024 12:00:00 AM +00:00), Corey Oneil M.D. (04/30/2024 12:00:00 AM +00:00), Corey Oneil M.D. (05/01/2024 12:00:00 AM +00:00), Corey Oneil M.D. (05/02/2024 12:00:00 AM +00:00), Corey Oneil M.D. (05/03/2024 12:00:00 AM +00:00) Classification Summary: Classification Summary Name: Psychogenic Non-Epileptic Events Etiology: Unknown Associated Conditions: EEG Classification: Interictal: Normal Ictal: No EEG Change, , Paroxysmal Event Significance: Normal Impression and Plan: The patient is a 24-year-old right-handed woman with an 11-year history of events of unclear etiology.This six day video-EEG evaluation is most consistent with the diagnosis of psychogenic nonepileptic seizures (PNES). There were no epileptiform discharges or EEG seizures recorded. The patient had 5 of her typical episodes. During 1E, she had headache and nausea during photic stimulation with preserved awareness. During 2E, she had left sided headache and nausea post hyperventilation. For 3E, she endorsed feeling hot without other signs or symptoms. In 4E and 5E, her symptoms of dizziness and nausea were triggered by pedaling a small stationary bike. In all the above events, there was no EEG change. We did not record events with altered awareness. The possibility that these events may be related to PNES were discussed. In summary, this diagnostic video-EEG evaluation was consistent with the diagnosis of psychogenic non-epileptic seizures (PNES), as the patient had her typical events recorded without EEG change to suggest seizure activity. The diagnosis was discussed with the patient, and she was provided with recourses. Non-epileptic precautions, including and not limited to falls prevention, were discussed. No new seizure medications were started during this admission. She will resume her home meds Topamax and Gabapentin for non-seizure indications. After discharge, she will follow up with Dr. Lock and follow with the mental health providers for cognitive behavioral therapy. Interpreted and electronically signed by Corey Oneil M.D. Date of signin05/09/2024 15:28 EXAMINATION: MRI BRAIN WO IVCON CLINICAL HISTORY: Recurrent syncopal episodes. Technique: Coronal and axial CHINYERE-FLAIR, coronal CHINYERE-T2, axial diffusion, and high resolution sagittal gradient echo volume acquisition of the brain with coronal planar reconstructions. Comparison: None. RESULT: Acute Change: There is no evidence of an acute intracranial process. Hemorrhage: No clear evidence of prior parenchymal hemorrhage within the constraints of the acquisition. Mass Lesion/ Mass Effect: No evidence of an intracranial mass or extra-axial fluid collection. No significant mass effect. Hippocampi: No significant asymmetry in size, configuration or signal intensity characteristics of the mesial temporal structures. Chronic Change: No evidence of focal or regional parenchymal volume loss otherwise. The white matter is within normal limits of signal intensity for the patient's chronologic age. Parenchyma: No significant generalized parenchymal volume loss for age. The brain parenchyma is otherwise within normal limits of signal intensity and morphology. Developmental: No distinct developmental abnormality is seen. Ventricles: Normal caliber and configuration for age. Other: Incidental note is made of mild mucosal thickening in the left maxillary and right sphenoid sinuses. IMPRESSION IMPRESSION: Mild paranasal sinus inflammatory changes. Otherwise normal study. Operating Room Scheduler: AMAYA Transcribe Date/Time: Jan 04 2024 12:18[place] [id number] [facility] TEST REPORT [facility] FIN[facility] * ELECTRONICALLY SIGNED BY: SHAYNE NAZARIO MD 12/19/2023 16:27 NAME: DONNIE MALDONADO TEST DATE: AGE: 23 SEX: F WEIGHT: 100.7KG, HEIGHT: 167.6CM TEST LOCATION: Stress 1 TEST TIME: 14:05 - 15:16 SUPERVISING PHYSICIAN: SHAYNE NAZARIO MD READING PHYSICIAN: SHAYNE NAZARIO MD ORDERING PHYSICIAN: NOA SARAVIA DO ECG: MITCHELL CABALLERO RN COMPUTER BP: MITCHELL CABALLERO RN Informed consent obtained. Test completed under the clinical supervision of SHAYNE NAZARIO MD. 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), Syncope, convulsive (HCC) (R55), Headache (R51) Medications: Name Sig Last Dosage AIMOVIG AUTOINJECTOR 140 mg/mL auto-injector amphetamine-dextroamphetamine XR (ADDERALL XR) 20 mg 24 hr capsule busPIRone HCl 30 mg tablet cholecalciferol (VITAMIN D-3) 5,000 unit tab FLUoxetine (PROZAC) 40 mg capsule gabapentin (NEURONTIN) 100 mg capsule hydrOXYzine pamoate (VISTARIL) 25 mg capsule levonorgestrel-ethinyl estradiol 0.15 mg-30 mcg (91) per tab, 3 month pack NURTEC ODT 75 mg disintegrating tablet ondansetron orally disintegrating (ZOFRAN ODT) 4 mg disintegrating tablet pantoprazole DR (PROTONIX) [address] (PROTONIX) 40 Take 1 tablet by mouth once mg tablet daily. sucralfate (CARAFATE) 100 mg/mL suspension topiramate (TOPAMAX) 50 mg tablet Special Comments-History: anxiety, griffin, previous suicidal ideation. states she has black outs, or passes out, has migraines for 10 years. experiences vertigo for multiple days every couple months 22 ga angio placed in basilic of right arm by MITCHELL CABALLERO RN. Adult standard long cuff on left upper arm. Comfort Measures: low lights, pillow, Transportation: parents Pain Assessment: Patient states headache not present earlier Notes: lyin 123/77 sittin 121/81 standin 123/71 FINAL IMPRESSIONS * The test was completed per protocol at 45 minutes of 70 degree tilt. Systolic blood pressures: 127 mmHg at start to 128 mmHg at end of tilt. Diastolic blood pressures: 74 mmHg at start to 94 mmHg at end of tilt. Heart rates: 65 bpm at start to 99 bpm at end of tilt. ECGs showed: NO asystole was seen. Syncope/impending syncope was NOT induced. Overall: A mild postural increase in heart rate was seen without reaching tachycardic range. Patient complaining of dizziness, not feeling good, nausea, spinning sensation which correlates with heart rate in 90s with normal blood pressure. Stage Sbp Dbp Hr Ecg Symptoms Comments C-01 127 72 62 base C-02 128 78 67 5 min C-03 125 72 66 10 min C-Mean 127 74 65 Baseline continuous BP: 30-01 12L 45-01 12L 70-01 12L 70-02 135 99 83 dizzy 70-03 70-04 132 100 100 70-05 70-06 138 89 93 dizzy nausea 70-07 70-08 126 88 78 room spinning 70-09 70-10 128 84 88 70-11 70-12 127 91 95 70-13 70-14 138 80 87 I'm not good at all 70-15 70-16 123 85 87 70-17 70-18 129 89 84 dizzy 70-19 70-20 134 83 95 12L 70-21 70-22 124 94 101 70-23 70-24 127 83 91 70-25 70-26 127 83 83 70-27 70-28 121 82 92 70-29 70-30 128 83 95 12L 70-31 70-32 130 89 91 hot 70-33 70-34 130 89 93 70-35 70-36 127 88 99 70-37 70-38 135 84 92 hot dizzy nausea 70-39 70-40 134 82 94 12L 70-41 70-42 122 91 87 70-43 70-44 127 79 90 70-45 128 94 99 REC-01 12L REC-02 118 70 76 REC-03 REC-04 121 75 69 REC-05 119 73 70 12L Cecy Torres MD 10/14/2015 12:44 PM [facility] EEG REPORT NAME: Donnie Maldonado : 2000 EEG #: [id number] Study Date: 10/14/2015 Duration: 52:34 History: This is a 15 y.o. female with h/o anxiety, depression, blackout spells ( evaluated by cardiology in the past, including Holter monitor), who was admitted after a spell concerning for seizure vs stroke like phenomena Involving facial droop . Her examination was concerning for psych-somatic behavior. Medication: Melatonin, Prozac, Prilosec, Hydroxyzine EEG DESCRIPTION: This EEG was performed on a 21 channel digital electroencephalograph utilizing 19 channels of scalp EEG, concomitant EKG and eye leads. Both bipolar and referential montages were employed in analysis. The patient was awake for an adequate period of time during the tracing. The posterior dominant rhythm with the patient awake and eyes closed was a moderate voltage of 10 Hz activity which reacted symmetrically to eye opening. No interhemispheric voltage or frequency asymmetries were noted. No epileptiform discharges were present. No electrographic or electroclinical seizures were recorded. During the tracing the patient became drowsy and the background rhythm waxed and waned. During the tracing the patient entered stage II sleep and symmetric sleep spindles and vertex waves were noted. Photic stimulation was performed using flash frequencies between 1-21 flashes/second and failed to activate any abnormalities. Hyperventilation was performed for five minutes and failed to activate any abnormalities. No spells were captured. INTERPRETATION: This is a normal awake and asleep EEG. No spells were seen. Clinical history: Strokelike symptoms. Comparison: Head CT of October 11, 2015 Technique: Multiplanar, multisequence images of the brain are obtained without gadolinium enhancement. Results: Diffusion images demonstrate no restriction of signal. The ventricles are normal in size. The posterior pituitary bright spot is present and not ectopic. There is no Chiari malformation. The corpus callosum is present. There are normal central vascular flow voids. The paranasal sinuses are clear. The visualized orbits are unremarkable. The brainstem, basal ganglia, and vang-white interfaces are normal. The anteromedial temporal lobes are symmetric in appearance with no evidence of increased T2 signal or volume loss. FLAIR images demonstrate no abnormal foci of increased T2 signal. No intracranial masses, migrational anomalies, or extra-axial fluid collections are identified. Procedure Note Emmanuelle Coffey MD - 10/11/2015 Clinical history: Strokelike symptoms. Comparison: Head CT of October 11, 2015 Technique: Multiplanar, multisequence images of the brain are obtained without gadolinium enhancement. Results: Diffusion images demonstrate no restriction of signal. The ventricles are normal in size. The posterior pituitary bright spot is present and not ectopic. There is no Chiari malformation. The corpus callosum is present. There are normal central vascular flow voids. The paranasal sinuses are clear. The visualized orbits are unremarkable. The brainstem, basal ganglia, and vang-white interfaces are normal. The anteromedial temporal lobes are symmetric in appearance with no evidence of increased T2 signal or volume loss. FLAIR images demonstrate no abnormal foci of increased T2 signal. No intracranial masses, migrational anomalies, or extra-axial fluid collections are identified. Impression: Unremarkable. No signs of ischemia or infarction. This report has been created using voice recognition software. 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 Rare Premature atrial complexes Rare Premature ventricular complexes with symptom of black out sinus rhythm was seen. Hookup Date: 20120920 Hookup Time: [id number] Recording Duration: 25843 S Minimum Heart Rate: 53 BPM Minimum Heart Rate Date/Time: 20120921 Maximum Heart Rate: 171 BPM Maximum Heart Rate Date/Time: 20120920 [id number] Longest RR: 1.256 S Longest RR DATE/TIME: 20120921 QRS complexes: [id number] Ventricular Ectopics: 4 Ventricular Isolated Beats: 2 Ventricular Bigeminal Cycles: 0 Ventricular Couplets: 1 Ventricular Runs: 0 Ventricular Beats in Runs: 0 Supraventricular Ectopics: 1 Supraventricular Isolated Beats: 1 Supraventricular Couplets: 0 Supraventricular Runs: 0 Supraventricular Beats in Runs: 0 Maximum S-T Levels Channel 1: 1.600 mm Maximum S-T Levels Channel 1 Date/Time: 20120920 [id number] Minimum S-T Levels Channel 1: -0.400 mm Minimum S-T Levels Channel 1 Date/Time: 20120920 284386 Maximum S-T Levels Channel 2: 0.400 mm Minimum S-T Levels Channel 2: -2.000 mm Minimum S-T Levels Channel 2 Date/Time: 20120920 [id number] Overreading Physician: ALAN GARVEY 20 yr ago URL 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 Technique: Extratemporal lobe seizure protocol. Three-dimensional multiplanar reformations were performed at the time of interpretation. The brain parenchyma is within normal limits of signal intensity and morphology for age. Specifically, there is no evidence of focal or more generalized encephalomalacia. No distinct developmental abnormality is identified. The myelination is appropriate for the child chronologic age. There is no evidence of hydrocephalus, intracranial mass, or extra axial fluid collection. IMPRESSION: NORMAL STUDY. Principal Bench Carpenter: MATTHEW MONIQUE EXAMINATION: MRI BRAIN WO IVCON CLINICAL HISTORY: Recurrent syncopal episodes. Technique: Coronal and axial CHINYERE-FLAIR, coronal CHINYERE-T2, axial diffusion, and high resolution sagittal gradient echo volume acquisition of the brain with coronal planar reconstructions. Comparison: None. RESULT: Acute Change: There is no evidence of an acute intracranial process. Hemorrhage: No clear evidence of prior parenchymal hemorrhage within the constraints of the acquisition. Mass Lesion/ Mass Effect: No evidence of an intracranial mass or extra-axial fluid collection. No significant mass effect. Hippocampi: No significant asymmetry in size, configuration or signal intensity characteristics of the mesial temporal structures. Chronic Change: No evidence of focal or regional parenchymal volume loss otherwise. The white matter is within normal limits of signal intensity for the patient's chronologic age. Parenchyma: No significant generalized parenchymal volume loss for age. The brain parenchyma is otherwise within normal limits of signal intensity and morphology. Developmental: No distinct developmental abnormality is seen. Ventricles: Normal caliber and configuration for age. Other: Incidental note is made of mild mucosal thickening in the left maxillary and right sphenoid sinuses. IMPRESSION IMPRESSION: Mild paranasal sinus inflammatory changes. Otherwise normal study. Operating Room Scheduler: AMAYA Transcribe Date/Time: Jan 04 2024 12:18P ASSESSMENT AND PLAN: Diagnosis Plan 1. Intractable migraine with aura without status migrainosus Nurtec 75 MG tablet dispersible 2. Obstructive sleep apnea 3. Vertigo 4. Psychogenic nonepileptic seizure She is to continue Nurtec. She is to get sleep study. She is to complete the PT. I offered her a referral to our PNES program at our epilepsy center as she reported that she is not returning to Dr. Lock, but she declined. She is seeing psychiatry. I spent 20 minutes caring for this patient today, reviewing labs and records, seeing the patient, documenting in the record and arranging for studies. documented in this encounter [facility] 03-04-2025 History of Present illness Narrative [facility] EPILEPSY CLINIC NOTE - RETURN VISIT (TELEMEDICINE/VIRTUAL VISIT with video) This is a virtual visit using HIPAA compliant video platform ([employer]). It required patient-provider interaction for the medical decision making as documented below. The patient's identity and physical location were verified at the time of this visit. The patient, or legal account development representative, has been informed of the risks, benefits, and alternatives to treatment through a remote evaluation and consents to proceed with the evaluation remotely. Individuals present during the telemedicine encounter: patient, provider Patient Location: patient's home in [place] CHIEF COMPLAINT: seizure-like episodes LAST SEEN: 10/19/2024 INTERVAL HISTORY At 10/19/2024 visit she reported a decrease in episodes, which she attributed to stress, from weekly to monthly. Plan was to increase fluid intake, decrease caffeine intake, start daily exercise and continue f/u with mental health providers. Patient cancelled her 11/02/[address] Hernández. Episodes are still about once a month, usually starting with headache, then dizziness, then may fall, loses consciousness. She sees new therapist 03/29/2025; has not seen a therapist in the last few months. Dealing with a lot of stress including recent of her uncle. Drinking 4-5 cups of water each day, improved from 2 cups per day. Caffeine: 1 cup of Coke/day which she feels helps her migraines She sees Dr. Ramirez for migraines and still sees psychiatrist. Notes from 10/19/2024 visit: LAST SEEN: 04/09/2024 for initial visit At 04/09/2024 initial visit they reported two types of episodes, falling and staring, occurring weekly. I ordered inpatient video-EEG. She was admitted 04/28 - 05/03/2024 and mild events were recorded, with no EEG change. Orthostatic vitals were checked several times in the EMU, with no evidence for orthostatic hypotension. She felt events were triggered by stress. She started working with Dr. Hernández 06/01/2024, and last visit was 10/12/2024 with last episode (body felt overheated) documented as 09/26/2024. She was still taking TPM for migraine and GBP for anxiety, insomnia. She confirms episodes in EMU were mild without loss of awareness. Last episode was 09/26/2024: she was at home in her room, woke up at about 6A feeling hot, dizzy, room spinning, and headache, and at about 630A she stood up and after about 5 minutes of standing, fell to floor, hit head. She thinks she was out for about 30 seconds. It was unwitnessed. She feels it was triggered by stress. She was going through break-up and Gregory's day was approaching. She reports just two episodes 08/2024. Overall, she feels episodes are improved. Fluoxetine was changed to Cymbalta mid-Aug 2024, prescribed by psychiatrist. She had been on fluoxetine for years and felt more depressed recently, but mood is better on Cymbalta. Working with Dr. Hernández has helped her manage stress. She reports frequent (mild) dizziness. She drinks 3-4 small bottles of Powerade and 2 glasses of water each day. She has appt with Dr. Ramirez next month for headache. She sees PCP next month. She has cut down on caffeine intake (but still drinks 1-2 Cokes per day). She does not exercise much. SEIZURE HISTORY (from 04/09/2024 initial visit) The history of episodes began 08/2012 (at 12 years of age), per her mother. Per review of EMR, she has a h/o headaches since at least 2004. They worsened in [address] Fabiano Mckinney 08/05/2009. Headaches improved in 2009 but recurred in 2011 when her father developed health problems. She also started to have syncopal episodes in 2011. Dr. Wilhelm noted a recurrent episode of syncope 08/2012. 24-hour Holter was normal. There were five syncopal episodes from 08/2012 to 11/2013, all while standing, with narrowing of vision and ringing in her ears before LOC, suggestive of vasovagal syncope. Per patient, initial episodes were characterized by everything going black and hearing goes, like someone's covering her ears. Symptoms last about 10 seconds before she loses consciousness. She often falls and injures herself. In 2012, they were happening every [address] Ramirez and someone at [facility]. She had 24-hour EEG in the hospital; no episodes were recorded. 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 They do not remember hearing an explanation of MAXINE. Episodes went away for several years, for no clear reason. Episodes recurred in 2023; patient thinks 10/2023. They are now happening 2x/week. Often, feels out of it dizzy, lightheaded, lasting hours before the episode. Even walking, feels dizzy, lightheaded and shortness of breath. She has been riding a mobility scooter in the last 2 months. They have seen PCP for episodes but have not mentioned SOB while walking. But even just sitting on sofa, she can start sweating hours before an episode. TYPICAL EPISODES: 1) Falling episodes Description: Patient experiences everything going black and losing hearing for about 10 seconds, and then loses consciousness, often finding herself on the floor. Witnesses: they often just hear her fall; when they have been in the same room, they see her staring, then she falls limp, motionless for about one minute, then gets up, then listless for the rest of the day. Duration: 1-2 minutes Frequency: 2/week 2) Staring episodes No aura. Parent report staring, with delayed responses but she does typically respond to them. Duration: 1-2 minutes Frequency: at least weekly Triggers: flashing lights, video games and early development: FT , delivered via due to breech presentation (mother was on bedrest since early , due to bleeding); normal early development RISK FACTORS FOR SEIZURES 1. Head Trauma (Yes, concussions but none before episodes started); 2. CONSERVATION SCIENCE OFFICER Infections (No); 3. Family History of Seizures (Yes, maternal GM had seizures starting in her 40's and father has undiagnosed episodes, possible neurosarcoid); 4. Developmental Delay (No); 5. Febrile Seizures (No); 6. CONSERVATION SCIENCE OFFICER Tumors (No); 7. CONSERVATION SCIENCE OFFICER Vascular Disease (No); 8. Significant Medical History (depression, anxiety, migraine). CURRENT MEDICATION Current Outpatient Medications Medication Sig Desogestrel-Ethinyl Estradiol (APRI) 0.15-0.03 mg per tablet Take 1 tablet by mouth. CYMBALTA 20 mg capsule (Patient taking differently: Take 20 mg by mouth two times a day.) vitamin B complex (SUPER B COMPLEX ORAL) gabapentin (NEURONTIN) 300 mg capsule Take 300 mg by mouth daily at bedtime. gabapentin (NEURONTIN) 100 mg capsule levonorgestrel-ethinyl estradiol (JOLESSA) 0.15 mg-30 mcg (91) per tab, 3 month pack Take 1 tablet by mouth once daily. topiramate (TOPAMAX) 100 mg tablet Take 100 mg by mouth two times a day. pantoprazole DR (PROTONIX) 40 mg tablet Take 1 tablet by mouth once daily. hydrOXYzine pamoate (VISTARIL) 25 mg capsule Take 1 capsule by mouth twice daily as needed. busPIRone HCl 30 mg tablet Take 1 tablet by mouth twice daily. NURTEC ODT 75 mg disintegrating tablet Take 1 tablet by mouth every 48 hours as needed. sucralfate (CARAFATE) 100 mg/mL suspension TAKE 10 ML (CC) BY MOUTH TWICE DAILY ON AN EMPTY STOMACH 1 HOUR BEFORE MEALS cholecalciferol (VITAMIN D-3) 5,000 unit tab Take 1 tablet by mouth once daily. ondansetron orally disintegrating (ZOFRAN ODT) 4 mg disintegrating tablet dissolve 1 tablet ON TONGUE every 4 hours if needed for nausea and vomiting No current facility-administered medications for this visit. Jol[facility] OCP Nurtec 75 mg every other day fluoxetine 10 mg cap + 40 mg cap = 50 mg daily TPM 100 mg BID (100 mg tablets) for migraine, prescribed by migraine neurologist GBP 100 mg in AM, 300 mg cap qhs (for anxiety, insomnia), prescribed by psychiatry also takes melatonin Buspar 30 mg BID Cymbalta Protonix 40 mg daily (LIDIA) Vistaril 25 mg PRN anxiety (averages 3x/week) ibuprofen PRN headaches and body aches (averages 2-3x/week) Adderall was stopped 2-3 months ago; psychiatrist did not think she needed it; she had been on it 2 years; it was only diagnosed in recent years but she had symptoms her whole life Psychiatrist: Lela Saleh, [facility]; visits are once per month Prior therapist was also at [facility]; sessions are every 2 weeks Anxiety is high right now, in reaction to not feeling well. Bending over causes her dizziness. PRIOR ANTICONVULSANT HISTORY none for seizures PAST MEDICAL HISTORY PAST MEDICAL HISTORY Diagnosis Date Achilles bursitis or tendinitis 06/16/2009 Concussion 04/21/2015 Depression 04/2009, 04/2015 The depression 04/2015 was with suicidal ideation and patient was hospitalized. Equinus deformity of foot, acquired 06/16/2009 Headache(784.0) 12/09/2009 Menarche Age [age] Years Old Nonspecific (abnormal) findings on radiological and other examination of skull and head resolved assymetry of head Syncope 09/11/2012 Vasovagal episode 07/15/2015 Migraine: bilateral pounding headache, with nausea, photophobia, treated with Nurtec, prescribed by Dr. Rios and now Dr. Freddie Bavis. Since taking Nurtec every other day since 12/2023, no ED visits. Prior to that, was in ED 1-2x/month for Toradol. Depression SIMÓN Tilt table [address] [facility]; [facility] Carlos: she felt dizzy but did not pass out; was told that she did not have POTS. PAST SURGICAL HISTORY PAST SURGICAL HISTORY Procedure Laterality Date PAST SURGICAL HISTORY OF 2005 Bilateral hip surgery PAST SURGICAL HISTORY OF 2006 Bilateral hip surgery plates removed TONSILLECTOMY & ADENOIDECTOMY <AGE 10 FAMILY HISTORY FAMILY HISTORY Problem Relation Age of Onset Diabetes Mother Cancer Mother skin- Unknonw type Hypertension Father Psychiatry Father Diabetes Maternal Grandmother Asthma Maternal Grandmother Hypertension Maternal Grandmother Hypertension Paternal Grandmother Lipids Paternal Grandmother Diabetes Paternal Grandfather Hypertension Paternal Grandfather Cancer Paternal Grandfather Lympoma- leukemia other (leukemia) Paternal Grandfather Anesthesia Problems No Family History Father with balance issues, diagnosed with sarcoidosis, possible neurosarcoid, episodes of speech difficulty. SOCIAL HISTORY Social History Tobacco Use Smoking status: Never Smokeless tobacco: Never Vaping Use Vaping status: Never Used Substance Use Topics Alcohol use: No Drug use: No Lives with mom and dad. Was home schooled through high school. 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 Withdrew from college due to medical issues (GERD, esophagitis, anxiety). DATA 24-hour Holter (09/20/2012): Rare PACs and PVCs. With symptom of black out sinus rhythm was seen. Prior EEG results were reviewed. -EEG (10/14/2015, [facility] ): normal, no episodes recorded. She remembers having only one EEG ever, at [facility]. Prior MRI results were reviewed. -MRI brain wo (10/11/2015) report via Care Everywhere: Unremarkable -MRI brain wo (01/04/2024, [facility]) report via Care Everywhere: normal [CHAN: reviewed coronal FLAIR and coronal T1 images and I agree that MRI is normal] Tilt table (12/19/2023, [facility]): Mild postural increase in heart rate from 65 bpm to 99 bpm at end of tilt. Patient c/o dizziness, not feeling good, nausea, spinning sensation which correlated with heart rate in 90's with normal blood pressure. Video-EEG (04/28 - 05/03/2024): Normal No EEG change. Paroxysmal event. The patient had 5 of her typical episodes. During 1E, she had headache and nausea during photic stimulation with preserved awareness. During 2E, she had left sided headache and nausea post hyperventilation. For 3E, she endorsed feeling hot without other signs or symptoms. In 4E and 5E, her symptoms of dizziness and nausea were triggered by pedaling a small stationary bike. In all the above events, there was no EEG change. We did not record events with altered awareness. IMPRESSION 24yo RH woman with anxiety, depression, migraine, with two types of episodes: falling and staring. She was diagnosed with vasovagal syncope at 12 years of age and current falling episodes are similar. Her only clear epilepsy risk factor is FH of seizures in a maternal GM. She does have risk factors for PNES. Episodes had not been recorded with video-EEG, at time of initial visit 04/09/2024. Video-EEG 04/2024 recorded mild episodes without loss of awareness, so was inconclusive, but patient identified stress as a trigger and has been working with Dr. Hernández. She reports a decrease in frequency of episodes, from weekly to about one/month. The patient attributes the last episode 09/26/2024 to the stress of a recent break-up just prior to 's Day. Prior cardiac evaluation including Holter with normal sinus rhythm during a black out and normal BP and HR with episode of nausea, dizziness during tilt-table 12/2023. Orthostatic vitals were normal in EMU 04/2024. There remains no clear evidence for epilepsy, (or cardiac syncope). 03/04/2025 update: she continues to have monthly episodes with same semiology, which she attributes to stress; she has not engaged in psychotherapy in several months PLAN She will start daily exercise, in addition to maintaining adequate hydration and minimizing caffeine intake She will continue follow-up with mental health providers for depression, anxiety and stress management She will follow-up with local neurologist for headache She should not be driving until episodes of loss of consciousness resolve. RTC PRN The patient agreed with the plan as outlined above. I spent a total of 10 minutes on the date of the service which included preparing to see the patient, [id number] patient care, completing clinical documentation, obtaining and/or reviewing separately obtained history, and counseling and educating the patient/family/caregiver. Edwin Lock MD documented in this encounter [facility] 03-04-2025 Note HNO ID: [id number] Author: EDWIN LOCK MD Service: ? Author Type: Physician Type: Progress Notes Filed: 03/04/2025 14:12 Note Text: [facility] EPILEPSY CLINIC NOTE - RETURN VISIT (TELEMEDICINE/VIRTUAL VISIT with video) This is a virtual visit using HIPAA compliant video platform (Bitex.la). It required patient-provider interaction for the medical decision making as documented below. The patient's identity and physical location were verified at the time of this visit. The patient, or legal account development representative, has been informed of the risks, benefits, and alternatives to treatment through a remote evaluation and consents to proceed with the evaluation remotely. Individuals present during the telemedicine encounter: patient, provider Patient Location: patient's home in [place] CHIEF COMPLAINT: seizure-like episodes LAST SEEN: 10/19/2024 INTERVAL HISTORY At 10/19/2024 visit she reported a decrease in episodes, which she attributed to stress, from weekly to monthly. Plan was to increase fluid intake, decrease caffeine intake, start daily exercise and continue f/u with mental health providers. Patient cancelled her 11/02/[address] Hernández. Episodes are still about once a month, usually starting with headache, then dizziness, then may fall, loses consciousness. She sees new therapist 03/29/2025; has not seen a therapist in the last few months. Dealing with a lot of stress including recent of her uncle. Drinking 4-5 cups of water each day, improved from 2 cups per day. Caffeine: 1 cup of Coke/day which she feels helps her migraines She sees Dr. Ramirez for migraines and still sees psychiatrist. Notes from 10/19/2024 visit: LAST SEEN: 04/09/2024 for initial visit At 04/09/2024 initial visit they reported two types of episodes, falling and staring, occurring weekly. I ordered inpatient video-EEG. She was admitted 04/28 - 05/03/2024 and mild events were recorded, with no EEG change. Orthostatic vitals were checked several times in the EMU, with no evidence for orthostatic hypotension. She felt events were triggered by stress. She started working with Dr. Hernández 06/01/2024, and last visit was 10/12/2024 with last episode (body felt overheated) documented as 09/26/2024. She was still taking TPM for migraine and GBP for anxiety, insomnia. She confirms episodes in EMU were mild without loss of awareness. Last episode was 09/26/2024: she was at home in her room, woke up at about 6A feeling hot, dizzy, room spinning, and headache, and at about 630A she stood up and after about 5 minutes of standing, fell to floor, hit head. She thinks she was out for about 30 seconds. It was unwitnessed. She feels it was triggered by stress. She was going through break-up and Gregory's day was approaching. She reports just two episodes 08/2024. Overall, she feels episodes are improved. Fluoxetine was changed to Cymbalta mid-Aug 2024, prescribed by psychiatrist. She had been on fluoxetine for years and felt more depressed recently, but mood is better on Cymbalta. Working with Dr. Hernández has helped her manage stress. She reports frequent (mild) dizziness. She drinks 3-4 small bottles of Powerade and 2 glasses of water each day. She has appt with Dr. Ramirez next month for headache. She sees PCP next month. She has cut down on caffeine intake (but still drinks 1-2 Cokes per day). She does not exercise much. SEIZURE HISTORY (from 04/09/2024 initial visit) The history of episodes began 08/2012 (at 12 years of age), per her mother. Per review of EMR, she has a h/o headaches since at least 2004. They worsened in [address] Fabiano Mckinney 08/05/2009. Headaches improved in 2009 but recurred in 2011 when her father developed health problems. She also started to have syncopal episodes in 2011. Dr. Wilhelm noted a recurrent episode of syncope 08/2012. 24-hour Holter was normal. There were five syncopal episodes from 08/2012 to 11/2013, all while standing, with narrowing of vision and ringing in her ears before LOC, suggestive of vasovagal syncope. Per patient, initial episodes were characterized by everything going black and hearing goes, like someone's covering her ears. Symptoms last about 10 seconds before she loses consciousness. She often falls and injures herself. In 2012, they were happening every [address] Ramirez and someone at [facility]. She had 24-hour EEG in the hospital; no episodes were recorded. 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 They do not remember hearing an explanation of MAXINE. Episodes went away for several years, for no clear reason. Episodes recurred in 2023; patient thinks 10/2023. They are now happening 2x/week. Often, feels out of it dizzy, lightheaded, lasting hours before the episode. Even walking, feels dizzy, lightheaded and shortness of breath. She has b (more content not included)... [facility] 01-29-2025 Hospital Discharge instructions Patient Education 01/29/2025 00:08:47 Headache, Unspecified Headache, Unspecified A number of [...] face You have trouble talking or seeing 7645-2773 [employer]. [address] [place] [address]. All rights reserved. This information is not intended as a substitute for professional medical care. Always follow your healthcare professional's instructions. Follow Up Care 01/28/2025 21:48:31 With:FANI BAEZ MD, Surgery Address: [address] [place] [address]- When:2-4 days [facility] 01-29-2025 Emergency department Discharge summary Discharge Instructions Thank you for allowing [facility] to assist you with your healthcare needs. The following is important discharge information regarding your hospital visit. Diagnosis from Today's Visit Headache What to Do Next Instructions from Your Care Team No qualifying data available. Post Acute Orders No qualifying data available. You Need to Schedule the Following Appointments Follow Up with FANI BAEZ MD, Surgery When:Within 2-4 days Where:[address] [place] [address]- Allergies Dairy products Glutens azithromycin Medications Please ask your primary doctor [...] needed for as needed for spasm Unchanged dicyclomine (dicyclomine 10 mg oral capsule) 1 cap by mouth Four (4) times a day Duration: 5 Days Unchanged doxycycline (doxycycline hyclate 100 mg oral [...] Days as directed on package labeling Unchanged pantoprazole (pantoprazole 40 mg oral enteric coated tablet) Unchanged rimegepant (Nurtec ODT 75 mg oral tablet, disintegrating) Unchanged topiramate (Topamax 50 mg oral tablet) [...] face You have trouble talking or seeing [id number] [employer]. [address] [place] [address]. All rights reserved. This information is not intended as a substitute for professional medical care. Always follow your healthcare professional's instructions. Additional Information VACCINATE! IT SAVES LIVES! Members of the community who have not yet received the COVID-19 vaccine and would like to receive it can visit one of [facility] vaccine clinics. There are many vaccine clinic locations within the [facility]. For locations and available times, please visit [email or web address] [email or web address] It is important to note that some COVID mobile vaccine clinics are held outdoors and may be canceled in rainy or stormy conditions. To learn more about pediatric vaccinations (ages 5-11), we invite you to visit the [facility] webpage. https://www.[facility].org/pa ges/8784-Sjcvs-Wbcqfpkpkta-Freque jukc-Cwjmi-Fibifbzfc.html To learn more about the COVID-19 vaccine, we invite you to visit the CDC website for a list of frequently asked questions. https://www.cdc.gov/coronavirus/2 019-ncov/vaccines/faq.html [facility] Patient Portal Access Instructions: Stay connected with your healthcare team and access your personal medical information anytime with the [facility] Patient Portal. If you would like a full copy of your medical records please contact the [facility] Medical Records Department Tuesday through Tuesday between 8a.m. and 4:30p.m. Please follow the directions below to access the portal: 1.Access the email account you provided upon registration to the hospital.2.Look for an invitation email from [facility].3.Open the email and access the invitation link: Accept Invitation to [facility]4.Fill in the required julian to create your account. Sign into [email or web address] with your username and password that you [...] you will allow to register on the [facility] Patient Portal for access to your information. You can also access the [facility] Patient Portal on the [employer]. Simply click on Health Records under Health Data and then click on the [email or web address] logo. HOW TO SAFELY DISPOSE OF PRESCRIPTION [...] Call your local pharmacy or go to http://Admaxim.Rewarder/[email or web address] to find one close to you.3.Make use of household items: Use cat litter or old coffee grounds to dispose medications if other options are not available. Mix your drugs with these household products, seal them in an airtight container and throw it into the garbage. Call [facility]: [phone] to be sure your drugs can be [...] been reviewed and explained to me and I,DONNIE MALDONADO M understand my current condition and have read and understand these discharge instructions. I have received a written copy of the plan/instructions. If I have questions, I am aware that I should contact my doctor. Patient/Tunnel Mucker Signature: Date/Time: Relationship to Patient: ____ Witness Name/Signature: Date/Time: [facility] 01-06-2025 Hospital Discharge instructions Patient Education 01/06/2025 21:51:41 Headache, Migraine, Classic Migraine Headache This often [...] of your face Difficulty talking or seeing [phone] [employer]. [address] [place] [address]. All rights reserved. This information is not intended as a substitute for professional medical care. Always follow your healthcare professional's instructions. Follow Up Care 01/06/2025 20:31:31 With:FANI BAEZ MD, Surgery Address: [address] [place] [address]- When:2-4 days [facility] 01-06-2025 Note Discharge Instructions Thank you for allowing [facility] to assist you with your healthcare needs. The following is important discharge information regarding your hospital visit. Diagnosis from Today's Visit Migraine headache What to Do Next Instructions from Your Care Team Discharge Return to Work, School, or Sports (Return to Work, School, or Sports) - Ordered -- 01/08/25, May return to: work, 01/06/25 21:51:00 EDT Post Acute Orders No qualifying data available. You Need to Schedule the Following Appointments Follow Up with FANI BAEZ MD, Surgery When:Within 2-4 days Where:[address] [place] [address]- Allergies Dairy products Glutens azithromycin Medications Please ask your primary doctor [...] needed for as needed for spasm Unchanged dicyclomine (dicyclomine 10 mg oral capsule) 1 cap by mouth Four (4) times a day Duration: 5 Days Unchanged doxycycline (doxycycline hyclate 100 mg oral [...] Days as directed on package labeling Unchanged pantoprazole (pantoprazole 40 mg oral enteric coated tablet) Unchanged rimegepant (Nurtec ODT 75 mg oral tablet, disintegrating) Unchanged topiramate (Topamax 50 mg oral tablet) [...] of your face Difficulty talking or seeing [phone] [employer]. [address] [place] [address], [place] [address]. All rights reserved. This information is not intended as a substitute for professional medical care. Always follow your healthcare professional's instructions. Additional Information VACCINATE! IT SAVES LIVES! Members of the community who have not yet received the COVID-19 vaccine and would like to receive it can visit one of [facility] vaccine clinics. There are many vaccine clinic locations within the [facility]. For locations and available times, please visit [email or web address] [email or web address] It is important to note that some COVID mobile vaccine clinics are held outdoors and may be canceled in rainy or stormy conditions. To learn more about pediatric vaccinations (ages 5-11), we invite you to visit the [employer] webpage. https://www.[employer] [place].org/pa ges/0399-Wleyp-Jsvxcwfhsan-Freque bbat-Judju-Yibksgruz.html To learn more about the COVID-19 vaccine, we invite you to visit the CDC website for a list of frequently asked questions. https://www.cdc.gov/coronavirus/2 019-ncov/vaccines/faq.html [facility] Patient Portal Access Instructions: Stay connected with your healthcare team and access your personal medical information anytime with the [facility] Patient Portal. If you would like a full copy of your medical records please contact the [facility] Medical Records Department Tuesday through Tuesday between 8a.m. and 4:30p.m. Please follow the directions below to access the portal: 1.Access the email account you provided upon registration to the hospital.2.Look for an invitation email from [facility].3.Open the email and access the invitation link: Accept Invitation to [facility]4.Fill in the required julian to create your account. Sign into [email or web address] with your username and password that you [...] you will allow to register on the [facility] Patient Portal for access to your information. You can also access the [facility] Patient Portal on the [employer]. Simply click on Health Records under Health Data and then click on the [email or web address] logo. HOW TO SAFELY DISPOSE OF PRESCRIPTION [...] Call your local pharmacy or go to http://Admaxim.Rewarder/[email or web address] to find one close to you.3.Make use of household items: Use cat litter or old coffee grounds to dispose medications if other options are not available. Mix your drugs with these household products, seal them in an airtight container and throw it into the garbage. Call [facility]: [phone] to be sure your drugs can be [...] been reviewed and explained to me and I,DONNIE MALDONADO M understand my current condition and have read and understand these discharge instructions. I have received a written copy of the plan/instructions. If I have questions, I am aware that I should contact my doctor. Patient/Tunnel Mucker Signature: Date/Time: Relationship to Patient: ____ Witness Name/Signature: Date/Time: [facility] 01-06-2025 Note Discharge Instructions Thank you for allowing [facility] to assist you with your healthcare needs. The following is important discharge information regarding your hospital visit. Diagnosis from Today's Visit Migraine headache What to Do Next Instructions from Your Care Team Discharge Return to Work, School, or Sports (Return to Work, School, or Sports) - Ordered -- 01/08/25, May return to: work, 01/06/25 21:51:00 EDT Post Acute Orders No qualifying data available. You Need to Schedule the Following Appointments Follow Up with FANI BAEZ MD, Surgery When:Within 2-4 days Where:[address] [place] [address]- Allergies Dairy products Glutens azithromycin Medications Please ask your primary doctor or pharmacist before taking any other medication not listed, including over the counter drugs, herbal medications, vitamins and or supplements as they may interact with your home medications. Please take this list to your next [...] of your face Difficulty talking or seeing [phone] [employer]. [address] [place] [address]. All rights reserved. This information is not intended as a substitute for professional medical care. Always follow your healthcare professional's instructions. Additional Information VACCINATE! IT SAVES LIVES! Members of the community who have not yet received the COVID-19 vaccine and would like to receive it can visit one of [facility] vaccine clinics. There are many vaccine clinic locations within the [facility]. For locations and available times, please visit [email or web address] [email or web address] It is important to note that some COVID mobile vaccine clinics are held outdoors and may be canceled in rainy or stormy conditions. To learn more about pediatric vaccinations (ages 5-11), we invite you to visit the [facility] webpage. https://www.[facility].org/pa ges/1617-Dswzb-Cxndzagimld-Freque wpfq-Yzmzn-Dyzbtfqan.html To learn more about the COVID-19 vaccine, we invite you to visit the CDC website for a list of frequently asked questions. https://www.cdc.gov/coronavirus/2 019-ncov/vaccines/faq.html [facility] Patient Portal Access Instructions: Stay connected with your healthcare team and access your personal medical information anytime with the [facility] Patient Portal. If you would like a full copy of your medical records please contact the [facility] Medical Records Department Tuesday through Tuesday between 8a.m. and 4:30p.m. Please follow the directions below to access the portal: 1.Access the email account you provided upon registration to the [facility].2.Look for an invitation email from [facility].3.Open the email and access the invitation link: Accept Invitation to [facility]4.Fill in the required julian to create your account. Sign into [email or web address] with your username and password that you [...] you will allow to register on the [facility] Patient Portal for access to your information. You can also access the [facility] Patient Portal on the [employer]wanted ifeanyi. Simply click on Health Records under Health Data and then click on the [email or web address] logo. HOW TO SAFELY DISPOSE OF PRESCRIPTION [...] Call your local pharmacy or go to [email or web address] to find one close to you.3.Make use of household items: Use cat litter or old coffee grounds to dispose medications if other options are not available. Mix your drugs with these household products, seal them in an airtight container and throw it into the garbage. Call [facility]: [phone] to be sure your drugs can be [...] been reviewed and explained to me and I,DONNIE MALDONADO M understand my current condition and have read and understand these discharge instructions. I have received a written copy of the plan/instructions. If I have questions, I am aware that I should contact my doctor. Patient/Tunnel Mucker Signature: Date/Time: Relationship to Patient: ____ Witness Name/Signature: Date/Time: [facility] 11-26-2024 Telephone encounter Note Home sleep apnea test ordered. [facility] 11-26-2024 Miscellaneous Notes Home sleep apnea test ordered. Auth denied through [place] for sleep study done in lab, can you please put an order in for a HST. Thank you documented in this encounter [facility] 11-26-[address] Willem Grissom to change to a HST [facility] 11-26-[address] Willem Grissom to change to a HST Your patient has been scheduled for their PSG on 12/11/24 at [place]. If testing requires an insurance authorization, the authorization must be in place 48 hours prior to the scheduled test or testing will be cancelled. Thank you, Central Scheduling documented in this encounter [facility] 11-26-2024 Telephone encounter Note Auth denied through [place] for sleep study done in lab, can you please put an order in for a HST. Thank you [facility] 11-20-2024 Telephone encounter Note Your patient has been scheduled for their PSG on 12/11/24 at [place]. If testing requires an insurance authorization, the authorization must be in place 48 hours prior to the scheduled test or testing will be cancelled. Thank you, Central Scheduling [facility] 11-20-2024 Miscellaneous Notes Your patient has been scheduled for their PSG on 12/11/24 at [place]. If testing requires an insurance authorization, the authorization must be in place 48 hours prior to the scheduled test or testing will be cancelled. Thank you, Central Scheduling documented in this encounter [facility] 11-16-2024 History of Present illness Narrative Images from the original note were not included. [place] [address] [address] [facility] [address] [facility] [address] Dept: [phone] Dept Loc: [phone] Freddie Ramirez MD CHIEF COMPLAINT: Chief Complaint Patient presents with New Patient Headache Seizures Last night went to ER HISTORY OF PRESENT ILLNESS: The patient is a 24 y.o. person who presents with headaches. She has been seen at [facility] (I did not have records at the time of the visit), [facility], and Dr. Wilhelm (I did not have records at the time of the visit). She reports that this is one of many issues that she has. Nurtec every other day has been helping. She has 8 days per month, which is down from her prior frequency of 20 or more per month. Biorbital and bioccipital. Throbbing. Is the BAUER longer than four hours? Yes (Migraine) Photophobia? Yes (Migraine) Phonophobia? Yes (Migraine) Nausea/Vomiting? Yes, has to take Zofran (Migraine) Exacerbated by Movement? Yes Blurry vision with headaches. Dizziness with headaches. (Hemicrania Continua) Autonomic Features (at least 1 of below)? (1) conjunctival injection? No (2) lacrimation? No (3) nasal congestion? No (4) rhinorrhea? No (5) ptosis? No (6) eyelid edema? No (New Daily Persistent BAUER) Clear Onset of BAUER Syndrome? No Persistent for >3 months? No Distinct starting point? No No prior BAUER history? Yes (Tension-Type BAUER) Mild-Moderate, Featureless? No >10 attacks per month? 30 min-7days? Bilateral? Pressing/tightening? Is the BAUER less than four hours? No Autonomic Features? No Cluster Headache (1 or more)? No 15 min to 180 min? No Ipsilateral conjunctival injection? No Ipsilateral Lacrimation? No Ipsilateral nasal congestion? No Ipsilateral Rhinorrhea? No Ipsilateral forehead and facial sweating? No Ipsilateral Miosis? No Ipsilateral Ptosis? No eyelid edema? No Paroxysmal Hemicrania (1 or more ipsilateral)? No (1) 2 min-30 min? No (2) conjunctival injection? No (3) lacrimation? No (4) nasal congestion? No (5) rhinorrhea? No (6) eyelid edema? No Short-lasting Unilateral Neuralgiform BAUER with Conjunctival Injection and Tearing? (1) 1 sec-600 s? No (2) conjunctival injection? No (3) lacrimation? No (4) nasal congestion? No (5) rhinorrhea? No (6) eyelid edema? No Hypnic BAUER? Only during sleep and causing awakening? No > 10 days per month? No > 3 months? No Age over 50? No Primary Cough BAUER? > 2 attacks? No Precipitated by coughing or other Valsalva maneuver? No 1 sec-2 hours? No Secondary cause ruled out? No Primary Exercise BAUER? > 2 attacks? No Precipitated by strenuous exercise? No Secondary cause ruled out? No Secondary causes of BAUER? Systemic Symptoms (mets, GCA, infection)? Fever? Sweats/Chills? Weight Loss? Secondary Diseases? HIV? Cancer? Chronic Infection? Chronic Immunosuppression? Neurological Symtoms and Signs (mass/structural lesion, stroke, hydrocephalus) Confusion? Focal neurological signs/symptoms? Diplopia? Transient visual obscurations? Pulsatile tinnitus? Onset: (RCVS, stroke, SAH, CVST, dissection, pituitary apoplexy, intracranial hypertension) Thunderclap? Older Age (mass, GCA) New onset after age 50? Progressive after age 50? Positional (CSF leak, mass, CVST, Sinusitis) Orthostatic? Recumbent? Worsens with change in position? Prior history (mass, infection)? / (CVST, eclampsia, RCVS, pituitary lesion, stroke)? Precipitated by valsalva (mass, Chiari)?Yes Cough?No Sneeze?No Bending?Yes Straining?Yes She reports that she is having 8 days of migraine per month with topiramate and duloxetine and gabapentin and Nurtec every other day. She takes Ibuprofen+Benadryl. She has tried sumatriptan and naratriptan and they failed. Aimovig caused rash. She reports that she has dizziness and balance issues. She will feel hot with these events. Do you have to be up to have the dizziness or can you have the dizziness when seated or lying down? Usually when active and bending over, but can happen seated. When you have an attack of dizziness how long does it last? Seconds: vestibular paroxysmia, cardiogenic dizziness (Less than 2 minutes)? No Minutes: vertebrobasilar transient ischemic attack (TIA), vestibular migraine, panic disorder, delayed orthostatic hypotension, hypoglycemia (2 min-60 min)? No Hours: vestibular migraine, M ni re disease, toxic/metabolic (Over an hour)? Yes Days: vestibular migraine? Do you feel like things are moving in when you know they are actually still?Yes Do you have otalgia? No Do you have tinnitus? No If so, which ear? Left/Right No Do you get dizzy turning your head? Yes Do you have trouble with dizziness getting up from a chair or from a seat? No Have you had falls? Yes Is there any vision change with the dizziness? Blurriness Do you have headache associated with the dizziness? Sometimes Have you had hearing loss with your dizziness? No We briefly reviewed that she had an evaluation for seizures with Dr. Lock and an admission to the EMU. She was diagnosed with PNES. She reports chronic back pain with reference down the right leg. Worse if active, better with rest. She reports chronic cervicalgia along the spine. She reports that massage helps, but she is not sure what makes it worse. The patient reports excessive daytime sleepiness. She has naps during the day. The patient goes to bed around 9-10PM. It takes less than 30 min to fall asleep. The patient gets up for the day at 11AM-Noon. The patient does not feel refreshed upon awakening. The patient estimations 0 arousals per sleep period. Snoring?Yes Tired? (Tired, Fatigued, or Sleepy during the daytime) Yes Observed? (Stop Breathing or Choking/Gasping during your sleep)Yes sometimes heartburn arousals Pressure? (High blood pressure meds?)No Body Mass Index is 28 or greater? Yes Age greater than 50? No Neck size (Men >17 in, Women >16 in)Yes Gender Male?No STOP BANG 5 Past Medical History: has a past medical history of ADHD (attention deficit hyperactivity disorder) (2020), Anxiety, Ataxia (2023), Brain concussion (2014), Difficulty walking (2023), Head injury (2014), Migraine without aura, not intractable, without status migrainosus, Mixed hyperlipidemia, Recurrent major depressive disorder, in remission ([facility]), Seasonal allergies, Seizures ([facility]) (09/06/2012), Social anxiety disorder, Syncope (09/06/2012), Vitamin D deficiency, and Weakness of limb. Outside records: Edwin Lock MD - 04/09/2024 8:37 AM EDT [facility] EPILEPSY CLINIC NOTE - INITIAL VISIT CHIEF COMPLAINT: seizures, here for further evaluation and treatment. They are self-referred. She is here with parents. Current neurologist: Dr. Rios at [facility] in [place] who treats her for migraine PRESENT ILLNESS This is a 24-year-old right-handed woman who presents with a chief complaint of seizures. The history of episodes began 08/2012 (at 12 years of age), per her mother. Per review of EMR, she has a h/o headaches since at least 2004. They worsened in [address] Fabiano Mckinney 08/05/2009. Headaches improved in 2009 but recurred in 2011 when her father developed health problems. She also started to have syncopal episodes in 2011. Dr. Wilhelm noted a recurrent episode of syncope 08/2012. 24-hour Holter was normal. There were five syncopal episodes from 08/2012 to 11/2013, all while standing, with narrowing of vision and ringing in her ears before LOC, suggestive of vasovagal syncope. Per patient, initial episodes were characterized by everything going black and hearing goes, like someone's covering her ears. Symptoms last about 10 seconds before she loses consciousness. She often falls and injures herself. In 2012, they were happening every [address] Ramirez and someone at [facility]. She had 24-hour EEG in the hospital; no episodes were recorded. 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 They do not remember hearing an explanation of MAXINE. Episodes went away for several years, for no clear reason. Episodes recurred in 2023; patient thinks 10/2023. They are now happening 2x/week. Often, feels out of it dizzy, lightheaded, lasting hours before the episode. Even walking, feels dizzy, lightheaded and shortness of breath. She has been riding a mobility scooter in the last 2 months. They have seen PCP for episodes but have not mentioned SOB while walking. But even just sitting on sofa, she can start sweating hours before and episode. TYPICAL EPISODES: 1) Falling episodes Description: Patient experiences everything going black and losing hearing for about 10 seconds, and then loses consciousness, often finding herself on the floor. Witnesses: they often just hear her fall; when they have been in the same room, they see her staring, then she falls limp, motionless for about one minute, then gets up, then listless for the rest of the day. Duration: 1-2 minutes Frequency: 2/week 2) Staring episodes No aura. Parent report staring, with delayed responses but she does typically respond to them. Duration: 1-2 minutes Frequency: at least weekly Triggers: flashing lights, video games and early development: FT , delivered via due to breech presentation (mother was on bedrest since early , due to bleeding); normal early development RISK FACTORS FOR SEIZURES 1. Head Trauma (Yes, concussions but none before episodes started); 2. CONSERVATION SCIENCE OFFICER Infections (No); 3. Family History of Seizures (Yes, maternal GM had seizures starting in her 40's and father has undiagnosed episodes, possible neurosarcoid); 4. Developmental Delay (No); 5. Febrile Seizures (No); 6. CONSERVATION SCIENCE OFFICER Tumors (No); 7. CONSERVATION SCIENCE OFFICER Vascular Disease (No); 8. Significant Medical History (depression, anxiety, migraine). CURRENT MEDICATION Current Outpatient Medications Medication Sig gabapentin (NEURONTIN) 100 mg capsule levonorgestrel-ethinyl estradiol (JOLESSA) 0.15 mg-30 mcg (91) per tab, 3 month pack Take 1 tablet by mouth once daily. FLUoxetine (PROZAC) 10 mg capsule Take 10 mg by mouth once daily. pantoprazole DR (PROTONIX) 40 mg tablet Take 1 tablet by mouth once daily. hydrOXYzine pamoate (VISTARIL) 25 mg capsule Take 1 capsule by mouth twice daily as needed. FLUoxetine (PROZAC) 40 mg capsule Take 1 capsule by mouth once daily. busPIRone HCl 30 mg tablet Take 1 tablet by mouth twice daily. NURTEC ODT 75 mg disintegrating tablet Take 1 tablet by mouth every 48 hours as needed. cholecalciferol (VITAMIN D-3) 5,000 unit tab Take 1 tablet by mouth once daily. ondansetron orally disintegrating (ZOFRAN ODT) 4 mg disintegrating tablet dissolve 1 tablet ON TONGUE every 4 hours if needed for nausea and vomiting gabapentin (NEURONTIN) 300 mg capsule Take 300 mg by mouth daily at bedtime. topiramate (TOPAMAX) 100 mg tablet Take 100 mg by mouth two times a day. levonorgestrel-ethinyl estradiol 0.15 mg-30 mcg (91) per tab, 3 month pack Take 1 tablet by mouth as directed. sucralfate (CARAFATE) 100 mg/mL suspension TAKE 10 ML (CC) BY MOUTH TWICE DAILY ON AN EMPTY STOMACH 1 HOUR BEFORE MEALS No current facility-administered medications for this visit. [facility] OCP Nurtec 75 mg every other day fluoxetine 10 mg cap + 40 mg cap = 50 mg daily TPM 100 mg BID (100 mg tablets) for migraine GBP 100 mg in AM, 300 mg cap qhs (for anxiety, insomnia) also takes melatonin Buspar 30 mg BID Protonix 40 mg daily (LIDIA) Vistaril 25 mg PRN anxiety (averages 3x/week) ibuprofen PRN headaches and body aches (averages 2-3x/week) Adderall was stopped 2-3 months ago; psychiatrist did not think she needed it; she had been on it 2 years; it was only diagnosed in recent years but she had symptoms her whole life Psychiatrist: Lela Saleh, [facility]; visits are once per month Therapist also at [facility]; sessions are every 2 weeks Anxiety is high right now, in reaction to not feeling well. Bending over causes her dizziness. PRIOR ANTICONVULSANT HISTORY none for seizures PAST MEDICAL HISTORY PAST MEDICAL HISTORY 06/16/2009: Achilles bursitis or tendinitis 04/21/2015: Concussion 04/2009, 04/2015: Depression Comment: The depression 04/2015 was with suicidal ideation and patient was hospitalized. 06/16/2009: Equinus deformity of foot, acquired 12/09/2009: Headache(784.0) No date: Menarche Comment: Age [age] Years Old resolved: Nonspecific (abnormal) findings on radiological and other examination of skull and head Comment: assymetry of head 09/11/2012: Syncope 07/15/2015: Vasovagal episode Migraine: bilateral pounding headache, with nausea, photophobia, treated with Nurtec, prescribed by Dr. Rios. Since taking Nurtec every other day since 12/2023, no ED visits. Prior to that, was in ED 1-2x/month for Toradol. Depression SIMÓN Tilt table [address] [facility]; [facility] Gonzalez: she felt dizzy but did not pass out; was told that she did not have POTS. PAST SURGICAL HISTORY PAST SURGICAL HISTORY 2006: PAST SURGICAL HISTORY OF Comment: Bilateral hip surgery 2007: PAST SURGICAL HISTORY OF Comment: Bilateral hip surgery plates removed No date: TONSILLECTOMY & ADENOIDECTOMY <AGE 10 FAMILY HISTORY FAMILY HISTORY Problem Relation Age of Onset Diabetes Mother Cancer Mother skin- Unknonw type Hypertension Father Psychiatry Father Diabetes Maternal Grandmother Asthma Maternal Grandmother Hypertension Maternal Grandmother Hypertension Paternal Grandmother Lipids Paternal Grandmother Diabetes Paternal Grandfather Hypertension Paternal Grandfather Cancer Paternal Grandfather Lympoma- leukemia other (leukemia) Paternal Grandfather Anesthesia Problems No Family History Father with balance issues, diagnosed with sarcoidosis, possible neurosarcoid, episodes of speech difficulty. SOCIAL HISTORY Social History Tobacco Use Smoking status: Never Smokeless tobacco: Never Vaping Use Vaping status: Never Used Substance Use Topics Alcohol use: No Drug use: No Lives with mom and dad. Was home schooled through high school. 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 Withdrew from college due to medical issues (GERD, esophagitis, anxiety). REVIEW OF SYSTEMS CONST: 40 lb weight gain over the past year with depression related to esophagitis; no fevers, chills, or night sweats. There have been headaches every two weeks but they have been milder. EYES: no double vision; some blurred vision ENT: no change in hearing; swallowing has improved with Protonix NEURO: no focal weakness or sensory loss; no memory loss CARD: no chest pain or palpitations, no leg edema RESP: shortness of breath with minimal exertion (12 steps) : no urinary urgency, frequency, or hematuria GI: no abdominal pain or change in bowel habits MUSC: some joint aching, knees, neck PSYCH: depressed mood but denies SI; sleeps 1AM to 11AM; SL within 30 minutes; naps during the day for about 3 hours HEME: no bruising, bleeding, or swollen glands. GENERAL EXAMINATION General Appearance: Obese, appears somewhat depressed, turns to mother to answer many questions. Notes lightheadedness with minimal movement during exam. Cardiovascular: Carotids normal. Heart regular rate and rhythm. Peripheral pulses intact. No cyanosis, clubbing, or edema. NEUROLOGICAL EXAM: MENTAL STATUS The patient is oriented to person, place, and time. Speech is clear with normal language. Attention and concentration are normal. CRANIAL NERVES Head is tilted to the right. The pupils are equal. Visual julian are full. Extraocular movements are full. There is no nystagmus. Facial sensation is normal. Facial strength/movement is symmetric. Hearing is intact. Palate elevates normally. Shoulder shrug is intact. Tongue protrudes midline. MOTOR EXAM Tone and bulk are normal. Strength is intact throughout. No pronator drift. SENSORY EXAM There are no gross abnormalities to touch. No sensory extinction to double simultaneous stimuli. COORDINATION Rapid alternating movements are mildly slow bilaterally. [id number] and fine finger movements are normal. GAIT The patient's gait, including tandem walking, is normal. Romberg sign is absent. DATA Prior EEG results were reviewed. -EEG (10/14/2015, [facility] ): normal, no episodes recorded. She remembers having only one EEG ever, at [facility]. Prior MRI results were reviewed. -MRI brain wo (10/11/2015) report via Care Everywhere: Unremarkable -MRI brain wo (01/04/2024, [facility]) report via Care Everywhere: normal [CHAN: reviewed coronal FLAIR and coronal T1 images and I agree that MRI is normal] IMPRESSION 24yo RH woman with anxiety, depression, migraine, here to evaluate two types of episodes: falling and staring. She was diagnosed with vasovagal syncope at 12 years of age and current falling episodes are similar. Her only clear epilepsy risk factor is FH of seizures in a maternal GM. She does have risk factors for PNES. Episodes have not been recorded with video-EEG. PLAN Inpatient video-EEG to record both types of episodes, to determine if she has epilepsy. She should not be driving. RTC TBD. The patient agreed with the plan as outlined above. I spent a total of 60 minutes on the date of the service which included preparing to see the patient, [id number] patient care, completing clinical documentation, obtaining and/or reviewing separately obtained history, performing a medically appropriate examination, counseling and educating the patient/family/caregiver, and ordering medications, tests, or procedures. Edwin Lock MD Past Surgical History: has a past surgical history that includes Femur Surgery (2005); Femur Surgery (2006); [facility] tooth extraction (02/2018); and Tonsillectomy (2004). Medications: Current Outpatient Medications: acetaminophen (Tylenol) 500 MG tablet, Take 500 mg by mouth every 6 hours as needed., Disp: , Rfl: busPIRone (Buspar) 30 MG tablet, Take 30 mg by mouth 2 times daily., Disp: , Rfl: DULoxetine (Cymbalta) [address] capsule, Take 20 mg by mouth 2 times daily., Disp: , Rfl: gabapentin (Neurontin) 100 MG capsule, Take 100 mg by mouth Nightly., Disp: , Rfl: ibuprofen 200 MG tablet, Take 200 mg by mouth 3 times daily., Disp: , Rfl: melatonin 5 MG tablet, Take 1 tablet by mouth every evening., Disp: , Rfl: Nurtec 75 MG tablet dispersible, , Disp: , Rfl: ondansetron ODT (Zofran-ODT) 4 MG disintegrating tablet, DISSOLVE 1 TABLET IN MOUTH EVERY 8 HOURS NEEDED FOR NAUSEA, Disp: , Rfl: pantoprazole (ProtoNix) 40 MG EC tablet, Take 1 tablet by mouth daily., Disp: , Rfl: topiramate (Topamax) 100 MG tablet, Take 100 mg by mouth 2 times daily., Disp: , Rfl: Allergies: Azithromycin, Sumatriptan, and Aimovig [[id number]] Social History: Social History Socioeconomic History Marital status: Single Spouse name: Not on file Number of children: Not on file Years of education: Not on file Highest education level: Not on file Occupational History Not on file Tobacco Use Smoking status: Never Smokeless tobacco: Never Substance and Sexual Activity Alcohol use: Never Drug use: No Sexual activity: Not Currently Partners: Female, Male control/protection: Condom Male Comment: On control pill Other Topics Concern Not on file Social History Narrative Not on file Social Drivers of Health Financial Resource Strain: Not on file Food Insecurity: Not on file Transportation Needs: Not on file Physical Activity: Not on file Stress: Not on file Social Connections: Not on file Intimate Partner Violence: Not on file Housing Stability: Not on file Family History: Family History Problem Relation Name Age of Onset Other ([id number]) Paternal Grandmother Deedee Biro Hypertension Paternal Grandmother Deedee Biro Alzheimer's disease Paternal Grandmother Deedee Biro Dementia Paternal Grandmother Deedee Biro Depression Paternal Grandmother Deedee Biro Mental illness Maternal Grandmother Giselle Tortorich Depression Maternal Grandmother Giselle Tortorich Migraines Maternal Grandmother Giselle Tortorich Seizures Maternal Grandmother Giselle Tortorich Parkinsonism Maternal Grandfather Hypertension Father Greg Maldonado Other ([id number]) Father Greg Biro Ataxia Father Greg Biro Depression Father Greg Biro Diabetes Mother Queenie Biro Anxiety disorder Mother Queenie Biro Fibromyalgia Mother Queenie Biro Migraines Mother Queenie Biro Cancer Paternal Grandfather Cancer Mother's Brother Anxiety disorder Father's Sister Lavinia Biro Depression Father's Sister Lavinia Biro Migraines Father's Sister Lavinia Biro REVIEW OF SYSTEMS: Review of Systems Constitutional: Negative for appetite change, chills, diaphoresis, fever and unexpected weight change. HENT: Negative for dental problem and mouth sores. Eyes: Negative for discharge and itching. Respiratory: Negative for chest tightness. Cardiovascular: Negative for chest pain and leg swelling. Gastrointestinal: Negative for rectal pain and vomiting. Endocrine: Negative for polydipsia, polyphagia and polyuria. Genitourinary: Negative for decreased urine volume, flank pain and genital sores. Musculoskeletal: Positive for back pain. Negative for arthralgias. Skin: Negative for color change. Allergic/Immunologic: Negative for food allergies and immunocompromised state. Neurological: Positive for dizziness, syncope and headaches. Hematological: Negative for adenopathy. Does not bruise/bleed easily. Psychiatric/Behavioral: Negative for agitation, behavioral problems, decreased concentration, sleep disturbance and suicidal ideas. PHYSICAL EXAM: Vitals: BP 132/83 (BP Location: Right arm, Patient Position: Sitting, BP Cuff Size: Adult) Pulse 80 Ht 5' 9 (1.753 m) Wt 296 lb 9.6 oz (135 kg) BMI 43.80 kg/m General Appearance: Patient is in no apparent distress. Head is normocephalic, atraumatic Cardiovascular: Regular rate and rhythm. No heart murmurs. No carotid bruit Neurologic: Mentation: Alert and oriented x 3 to person, place and time. Speech and Language: Speech and language normal Concentration and Attention: Concentration normal Memory: Memory grossly normal Fund of Knowledge: Fund of knowledge normal Cranial Nerves: II, III, IV, V, , VII, VIII, IX, X, XI, XII tested and were intact including fundoscopic exam (optic discs) and visual field to confrontation. Odd behavior during the exam like closing her eyes during fundoscopic exam. On head position changes she had dizziness and she has worsening of the dizziness and torsional nystagmus with fast beat to the right. She got nauseous so we had to stop. Motor: Strength:Strength 5 out of 5 with normal tone Alternating Movements: Normal Cogwheel Rigidity: None Tone: Tone is normal Tremor / Involuntary Movements: None Deep Tendon Reflexes: 1 out of 4 symmetrical in all four limbs. Sensory: Decreased pinprick in the posterior lower right leg, but otherwise normal in the four limbs. Coordination: Normal coordination upper and lower extremities Gait and Station: Station is normal. Gait is normal DATA CBC: Lab Results Component Value Date WBC 6.6 01/25/2020 RBC 4.60 01/25/2020 HGB 14.3 01/25/2020 MCV 90.4 01/25/2020 MCH 31.1 01/25/2020 MCHC 34.5 01/25/2020 RDW 12.8 01/25/2020 MPV 6.3 (L) 01/25/2020 CMP: Lab Results Component Value Date NA 140 01/25/2020 K 4.1 01/25/2020 CL 109 (H) 01/25/2020 CO2 20 (L) 01/25/2020 BUN 10 01/25/2020 CREATININE 0.68 01/25/2020 GLUCOSE 96 01/25/2020 PROT 7.2 01/25/2020 CALCIUM 8.7 01/25/2020 BILITOT 0.2 01/25/2020 ALKPHOS 76 01/25/2020 AST 18 01/25/2020 BMP: Lab Results Component Value Date NA 140 01/25/2020 K 4.1 01/25/2020 CL 109 (H) 01/25/2020 CO2 20 (L) 01/25/2020 BUN 10 01/25/2020 CREATININE 0.68 01/25/2020 CALCIUM 8.7 01/25/2020 GLUCOSE 96 01/25/2020 ECG 12 lead [employer] Test Date: 2020-01-25 Pat Name: Donnie Maldonado Department: 01 Room: 15 Gender: F Sand Miller: WILLIAM : 2000 Requested By: HENRIK ABRAMS Order Number: [id number] Reading MD: Casey Ray Measurements Intervals [place] Rate: 89 P: 28 PA: 160 QRS: 73 QRSD: 88 T: -9 QT: 376 QTc: 458 Interpretive Statements SINUS RHYTHM NONSPECIFIC T ABNORMALITIES, ANTERIOR LEADS No previous ECG available for comparison Electronically Signed On 01-26-2020 13:38:30 EDT by Casey Ray EXAM: CT BRAIN WO [facility] Exam Date/Time: 06/13/2024 5:20 PM CLINICAL HISTORY: Head trauma, minor, normal mental status (Age 19-64y) PROCEDURE: Axial CT images of the head from the skull base to vertex are obtained without IV contrast. CT Radiation dose: Integrated CT Dose-Length Product (DLP) for this visit = 715.81 mGy*cm CT Dose Reduction Employed: Automated exposure control(AEC) and iterative recon FINDINGS: No acute intracranial hemorrhage, shift of midline structures or mass effect. Ventricles and sulci are symmetric with normal size. No extra-axial collections. No depressed calvarial fractures. Minimal opacification of the left maxillary and some right ethmoid sinuses. The remaining visualized paranasal sinuses and mastoid air cells are clear. IMPRESSION IMPRESSION: No acute intracranial abnormality. Operating Room Scheduler: AMAYA Transcribe Date/Time: Jun 13 2024 5:28P Dictated by : ASHLEY BANKS MD [facility] EPIL VEEG Monitoring Adult EMU [[id number]] Patient name: DONNIE MALDONADO Date of test: 05/03/2024 Duration: 573 Requested By: HERNAN SRIVASTAVA Staff Physician: Corey Oneil EEG Fellow or [place]: Abby Devine History: Patient is 24 years old. Paroxysmal events onset at age 12. Initial episodes were characterized by everything going black and hearing goes, like someone's covering her ears. Symptoms last about 10 seconds before she loses consciousness. We have clarified that now 10% of the events resulted in 'black outs'. She often falls and injures herself. In 2012, they were happening every 2 months. After several years of remission, reemerged in 10/2023, twice weekly. Often feels dizzy, lightheaded for hours before episode. Type 1: falls, type 2: stares 1-2 minutes weekly. Also feels increased heat intolerance, for example ambulating to grocery store makes her feel very hot, therefore she uses a motility scooter for going to the grocery stores. Conditions: Awake Classifications: Normal (10-20 Scalp Electrodes, Anterior Temporal Electrodes, Awake) Interictal: Normal, Impression: The video-EEG monitoring has been completed. A report will be finalized and made available in [facility]. Diagnosis: Primary: Seizure-like activity (HCC) Interpreted and electronically signed by Corey Oneil M.D. Date of signin05/09/2024 14:58 [facility] EPIL VEEG Monitoring Adult EMU [[id number]] Patient name: DONNIE MALDONADO Date of test: 05/02/2024 Duration: 1440 Requested By: HERNAN SRIVASTAVA Staff Physician: Corey Oneil EEG Fellow or [place]: Abby Devine History: Patient is 24 years old. Paroxysmal events onset at age 12. Initial episodes were characterized by everything going black and hearing goes, like someone's covering her ears. Symptoms last about 10 seconds before she loses consciousness. We have clarified that now 10% of the events resulted in 'black outs'. She often falls and injures herself. In 2012, they were happening every 2 months. After several years of remission, reemerged in 10/2023, twice weekly. Often feels dizzy, lightheaded for hours before episode. Type 1: falls, type 2: stares 1-2 minutes weekly. Also feels increased heat intolerance, for example ambulating to grocery store makes her feel very hot, therefore she uses a motility scooter for going to the grocery stores. Conditions: Awake Classifications: Normal (10-20 Scalp Electrodes, Anterior Temporal Electrodes, Awake) Interictal: Normal, Impression: Video-EEG monitoring continues. No event this day. Diagnosis: Primary: Seizure-like activity (HCC) Interpreted and electronically signed by Corey Oneil M.D. Date of signin05/09/2024 13:42 [facility] EPIL VEEG Monitoring Adult EMU [[id number]] Patient name: DONNIE MALDONADO Date of test: 05/01/2024 Duration: 1440 Requested By: HERNAN SRIVASTAVA Staff Physician: Corey Oneil EEG Fellow or [place]: Abby Devine History: Patient is 24 years old. Paroxysmal events onset at age 12. Initial episodes were characterized by everything going black and hearing goes, like someone's covering her ears. Symptoms last about 10 seconds before she loses consciousness. We have clarified that now 10% of the events resulted in 'black outs'. She often falls and injures herself. In 2012, they were happening every 2 months. After several years of remission, reemerged in 10/2023, twice weekly. Often feels dizzy, lightheaded for hours before episode. Type 1: falls, type 2: stares 1-2 minutes weekly. Also feels increased heat intolerance, for example ambulating to grocery store makes her feel very hot, therefore she uses a motility scooter for going to the grocery stores. Conditions: Awake Classifications: Normal (10-20 Scalp Electrodes, Anterior Temporal Electrodes, Awake) Ictal: No EEG Change Paroxysmal Event Impression: Video-EEG monitoring continues. 2 events this day without EEG correlate, which are her typical events. Diagnosis: Primary: Seizure-like activity (HCC) Interpreted and electronically signed by Corey Oneil M.D. Date of signin05/09/2024 13:42 Images [facility] EPIL VEEG Monitoring Adult EMU [[id number]] Patient name: DONNIE MALDONADO Date of test: 04/30/2024 Duration: 1440 Requested By: HERNAN SRIVASTAVA Staff Physician: Corey Oneil EEG Fellow or [place]: Abby Devine History: Patient is 24 years old. Paroxysmal events onset at age 12. Initial episodes were characterized by everything going black and hearing goes, like someone's covering her ears. Symptoms last about 10 seconds before she loses consciousness. We have clarified that now 10% of the events resulted in 'black outs'. She often falls and injures herself. In 2012, they were happening every 2 months. After several years of remission, reemerged in 10/2023, twice weekly. Often feels dizzy, lightheaded for hours before episode. Type 1: falls, type 2: stares 1-2 minutes weekly. Also feels increased heat intolerance, for example ambulating to grocery store makes her feel very hot, therefore she uses a motility scooter for going to the grocery stores. Conditions: Awake Classifications: Normal (10-20 Scalp Electrodes, Anterior Temporal Electrodes, Awake) Interictal: Normal, Impression: Video-EEG monitoring continues. No event on this day. Diagnosis: Primary: Seizure-like activity (HCC) Interpreted and electronically signed by Corey Oneil M.D. Date of signin05/09/2024 13:42 [facility] [place] EPIL VEEG Monitoring Adult EMU [[id number]] Patient name: DONNIE MALDONADO Date of test: 04/29/2024 Duration: 1440 Requested By: HERNAN SRIVASTAVA Staff Physician: Corey Oneil EEG Fellow or [place]: Abby Devine History: Patient is 24 years old. Paroxysmal events onset at age 12. Initial episodes were characterized by everything going black and hearing goes, like someone's covering her ears. Symptoms last about 10 seconds before she loses consciousness. We have clarified that now 10% of the events resulted in 'black outs'. She often falls and injures herself. In 2012, they were happening every 2 months. After several years of remission, reemerged in 10/2023, twice weekly. Often feels dizzy, lightheaded for hours before episode. Type 1: falls, type 2: stares 1-2 minutes weekly. Also feels increased heat intolerance, for example ambulating to grocery store makes her feel very hot, therefore she uses a motility scooter for going to the grocery stores. Conditions: Awake Classifications: Normal (10-20 Scalp Electrodes, Anterior Temporal Electrodes, Awake) Ictal: No EEG Change Paroxysmal Event Impression: Video-EEG monitoring continues. 3 events recorded, all of which were typical events without EEG change. Diagnosis: Primary: Seizure-like activity (HCC) Interpreted and electronically signed by Corey Oneil M.D. Date of signin05/09/2024 13:42 [facility] EPIL VEEG Monitoring Adult EMU [[id number]] Patient name: DONNIE MALDONADO Date of test: 04/28/2024 Duration: 630 Requested By: HERNAN SRIVASTAVA Staff Physician: Deon Godwin EEG Fellow or [place]: Abby Devine History: Seizure onset age 12. Initial episodes were characterized by everything going black and hearing goes, like someone's covering her ears. Symptoms last about 10 seconds before she loses consciousness. She often falls and injures herself. In 2012, they were happening every 2 months. After several years of remission, reemerged in 10/2023, twice weekly. Often feels dizzy, lightheaded for hours before episode. Type 1: falls, type 2: stares 1-2 minutes weekly. Conditions: Awake Classifications: Normal (10-20 Scalp Electrodes, Anterior Temporal Electrodes, Awake) Ictal: No EEG Change Paroxysmal Event Impression: Video-EEG monitoring continues. No epileptiform discharges or seizure. One event triggered by photic stimulation, symptoms of nausea and headache, without altered mentation or other symptoms or signs. Diagnosis: Primary: Seizure-like activity (HCC) Interpreted and electronically signed by Deon Godwin M.D., M.S. Date of signin04/30/2024 09:17 Images [facility] SCALP EEG-VIDEO EVALUATION REPORT Patient name: DONNIE MALDONADO [facility]#: [id number] Dates: 04/28/2024 - 05/03/2024 Total Monitoring Days: 6 Date of : 2000 12:00:00 AM Age: 24 yrs Primary Epileptologist: Edwin Lock M.D. Referring Physician: [place]: Abby Devine Staff: Deon Godwin M.D., M.S. (04/28/2024 12:00:00 AM +00:00), Corey Oneil M.D. (04/29/2024 12:00:00 AM +00:00), Corey Oneil M.D. (04/30/2024 12:00:00 AM +00:00), Corey Oneil M.D. (05/01/2024 12:00:00 AM +00:00), Corey Oneil M.D. (05/02/2024 12:00:00 AM +00:00), Corey Oneil M.D. (05/03/2024 12:00:00 AM +00:00) Classification Summary: Classification Summary Name: Psychogenic Non-Epileptic Events Etiology: Unknown Associated Conditions: EEG Classification: Interictal: Normal Ictal: No EEG Change, , Paroxysmal Event Significance: Normal Impression and Plan: The patient is a 24-year-old right-handed woman with an 11-year history of events of unclear etiology.This six day video-EEG evaluation is most consistent with the diagnosis of psychogenic nonepileptic seizures (PNES). There were no epileptiform discharges or EEG seizures recorded. The patient had 5 of her typical episodes. During 1E, she had headache and nausea during photic stimulation with preserved awareness. During 2E, she had left sided headache and nausea post hyperventilation. For 3E, she endorsed feeling hot without other signs or symptoms. In 4E and 5E, her symptoms of dizziness and nausea were triggered by pedaling a small stationary bike. In all the above events, there was no EEG change. We did not record events with altered awareness. The possibility that these events may be related to PNES were discussed. In summary, this diagnostic video-EEG evaluation was consistent with the diagnosis of psychogenic non-epileptic seizures (PNES), as the patient had her typical events recorded without EEG change to suggest seizure activity. The diagnosis was discussed with the patient, and she was provided with recourses. Non-epileptic precautions, including and not limited to falls prevention, were discussed. No new seizure medications were started during this admission. She will resume her home meds Topamax and Gabapentin for non-seizure indications. After discharge, she will follow up with Dr. Lock and follow with the mental health providers for cognitive behavioral therapy. Interpreted and electronically signed by Corey Oneil M.D. Date of signin05/09/2024 15:28 EXAMINATION: MRI BRAIN WO IVCON CLINICAL HISTORY: Recurrent syncopal episodes. Technique: Coronal and axial CHINYERE-FLAIR, coronal CHINYERE-T2, axial diffusion, and high resolution sagittal gradient echo volume acquisition of the brain with coronal planar reconstructions. Comparison: None. RESULT: Acute Change: There is no evidence of an acute intracranial process. Hemorrhage: No clear evidence of prior parenchymal hemorrhage within the constraints of the acquisition. Mass Lesion/ Mass Effect: No evidence of an intracranial mass or extra-axial fluid collection. No significant mass effect. Hippocampi: No significant asymmetry in size, configuration or signal intensity characteristics of the mesial temporal structures. Chronic Change: No evidence of focal or regional parenchymal volume loss otherwise. The white matter is within normal limits of signal intensity for the patient's chronologic age. Parenchyma: No significant generalized parenchymal volume loss for age. The brain parenchyma is otherwise within normal limits of signal intensity and morphology. Developmental: No distinct developmental abnormality is seen. Ventricles: Normal caliber and configuration for age. Other: Incidental note is made of mild mucosal thickening in the left maxillary and right sphenoid sinuses. IMPRESSION IMPRESSION: Mild paranasal sinus inflammatory changes. Otherwise normal study. Operating Room Scheduler: AMAYA Transcribe Date/Time: Jan 04 2024 12:18P [place] [id number] [facility] TEST REPORT [facility] FIN[facility] * ELECTRONICALLY SIGNED BY: SHAYNE NAZARIO MD 12/19/2023 16:27 NAME: DONNIE MALDONADO TEST DATE: AGE: 23 SEX: F WEIGHT: 100.7KG, HEIGHT: 167.6CM TEST LOCATION: Stress 1 TEST TIME: 14:05 - 15:16 SUPERVISING PHYSICIAN: SHAYNE NAZARIO MD READING PHYSICIAN: SHAYNE NAZARIO MD ORDERING PHYSICIAN: NOA SARAVIA DO ECG: MITCHELL CABALLERO RN COMPUTER BP: MITCHELL CABALLERO RN Informed consent obtained. Test completed under the clinical supervision of SHAYNE NAZARIO MD. 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), Syncope, convulsive (HCC) (R55), Headache (R51) Medications: Name Sig Last Dosage AIMOVIG AUTOINJECTOR 140 mg/mL auto-injector amphetamine-dextroamphetamine XR (ADDERALL XR) 20 mg 24 hr capsule busPIRone HCl 30 mg tablet cholecalciferol (VITAMIN D-3) 5,000 unit tab FLUoxetine (PROZAC) 40 mg capsule gabapentin (NEURONTIN) 100 mg capsule hydrOXYzine pamoate (VISTARIL) 25 mg capsule levonorgestrel-ethinyl estradiol 0.15 mg-30 mcg (91) per tab, 3 month pack NURTEC ODT 75 mg disintegrating tablet ondansetron orally disintegrating (ZOFRAN ODT) 4 [address]integrating tablet pantoprazole DR (PROTONIX) [address] (PROTONIX) 40 Take 1 tablet by mouth once mg tablet daily. sucralfate (CARAFATE) 100 mg/mL suspension topiramate (TOPAMAX) 50 mg tablet Special Comments-History: anxiety, griffin, previous suicidal ideation. states she has black outs, or passes out, has migraines for 10 years. experiences vertigo for multiple days every couple months 22 ga angio placed in basilic of right arm by MITCHELL CABALLERO RN. Adult standard long cuff on left upper arm. Comfort Measures: low lights, pillow, Transportation: parents Pain Assessment: Patient states headache not present earlier Notes: lyin 123/77 sittin 121/81 standin 123/71 FINAL IMPRESSIONS * The test was completed per protocol at 45 minutes of 70 degree tilt. Systolic blood pressures: 127 mmHg at start to 128 mmHg at end of tilt. Diastolic blood pressures: 74 mmHg at start to 94 mmHg at end of tilt. Heart rates: 65 bpm at start to 99 bpm at end of tilt. ECGs showed: NO asystole was seen. Syncope/impending syncope was NOT induced. Overall: A mild postural increase in heart rate was seen without reaching tachycardic range. Patient complaining of dizziness, not feeling good, nausea, spinning sensation which correlates with heart rate in 90s with normal blood pressure. Stage Sbp Dbp Hr Ecg Symptoms Comments C-01 127 72 62 base C-02 128 78 67 5 min C-03 125 72 66 10 min C-Mean 127 74 65 Baseline continuous BP: 30-01 12L 45-01 12L 70-01 12L 70-02 135 99 83 dizzy 70-03 70-04 132 100 100 70-05 70-06 138 89 93 dizzy nausea 70-07 70-08 126 88 78 room spinning 70-09 70-10 128 84 88 70-11 70-12 127 91 95 70-13 70-14 138 80 87 I'm not good at all 70-15 70-16 123 85 87 70-17 70-18 129 89 84 dizzy 70-19 70-20 134 83 95 12L 70-21 70-22 124 94 101 70-23 70-24 127 83 91 70-25 70-26 127 83 83 70-27 70-28 121 82 92 70-29 70-30 128 83 95 12L 70-31 70-32 130 89 91 hot 70-33 70-34 130 89 93 70-35 70-36 127 88 99 70-37 70-38 135 84 92 hot dizzy nausea 70-39 70-40 134 82 94 12L 70-41 70-42 122 91 87 70-43 70-44 127 79 90 70-45 128 94 99 REC-01 12L REC-02 118 70 76 REC-03 REC-04 121 75 69 REC-05 119 73 70 12L Cecy Torres MD 10/14/2015 12:44 PM [facility] EEG REPORT NAME: Donnie Maldonado : 2000 EEG #: [id number] Study Date: 10/14/2015 Duration: 52:34 History: This is a 15 y.o. female with h/o anxiety, depression, blackout spells ( evaluated by cardiology in the past, including Holter monitor), who was admitted after a spell concerning for seizure vs stroke like phenomena Involving facial droop . Her examination was concerning for psych-somatic behavior. Medication: Melatonin, Prozac, Prilosec, Hydroxyzine EEG DESCRIPTION: This EEG was performed on a 21 channel digital electroencephalograph utilizing 19 channels of scalp EEG, concomitant EKG and eye leads. Both bipolar and referential montages were employed in analysis. The patient was awake for an adequate period of time during the tracing. The posterior dominant rhythm with the patient awake and eyes closed was a moderate voltage of 10 Hz activity which reacted symmetrically to eye opening. No interhemispheric voltage or frequency asymmetries were noted. No epileptiform discharges were present. No electrographic or electroclinical seizures were recorded. During the tracing the patient became drowsy and the background rhythm waxed and waned. During the tracing the patient entered stage II sleep and symmetric sleep spindles and vertex waves were noted. Photic stimulation was performed using flash frequencies between 1-21 flashes/second and failed to activate any abnormalities. Hyperventilation was performed for five minutes and failed to activate any abnormalities. No spells were captured. INTERPRETATION: This is a normal awake and asleep EEG. No spells were seen. Clinical history: Strokelike symptoms. Comparison: Head CT of October 11, 2015 Technique: Multiplanar, multisequence images of the brain are obtained without gadolinium enhancement. Results: Diffusion images demonstrate no restriction of signal. The ventricles are normal in size. The posterior pituitary bright spot is present and not ectopic. There is no Chiari malformation. The corpus callosum is present. There are normal central vascular flow voids. The paranasal sinuses are clear. The visualized orbits are unremarkable. The brainstem, basal ganglia, and vnag-white interfaces are normal. The anteromedial temporal lobes are symmetric in appearance with no evidence of increased T2 signal or volume loss. FLAIR images demonstrate no abnormal foci of increased T2 signal. No intracranial masses, migrational anomalies, or extra-axial fluid collections are identified. Procedure Note Emmanuelle Coffey MD - 10/11/2015 Clinical history: Strokelike symptoms. Comparison: Head CT of October 11, 2015 Technique: Multiplanar, multisequence images of the brain are obtained without gadolinium enhancement. Results: Diffusion images demonstrate no restriction of signal. The ventricles are normal in size. The posterior pituitary bright spot is present and not ectopic. There is no Chiari malformation. The corpus callosum is present. There are normal central vascular flow voids. The paranasal sinuses are clear. The visualized orbits are unremarkable. The brainstem, basal ganglia, and vang-white interfaces are normal. The anteromedial temporal lobes are symmetric in appearance with no evidence of increased T2 signal or volume loss. FLAIR images demonstrate no abnormal foci of increased T2 signal. No intracranial masses, migrational anomalies, or extra-axial fluid collections are identified. Impression: Unremarkable. No signs of ischemia or infarction. This report has been created using voice recognition software. 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 Rare Premature atrial complexes Rare Premature ventricular complexes with symptom of black out sinus rhythm was seen. Hookup Date: 20120920 Hookup Time: [id number] Recording Duration: 47151 S Minimum Heart Rate: 53 BPM Minimum Heart Rate Date/Time: 20120921 Maximum Heart Rate: 171 BPM Maximum Heart Rate Date/Time: [id number] Longest RR: 1.256 S Longest RR DATE/TIME: 20120921 QRS complexes: [id number] Ventricular Ectopics: 4 Ventricular Isolated Beats: 2 Ventricular Bigeminal Cycles: 0 Ventricular Couplets: 1 Ventricular Runs: 0 Ventricular Beats in Runs: 0 Supraventricular Ectopics: 1 Supraventricular Isolated Beats: 1 Supraventricular Couplets: 0 Supraventricular Runs: 0 Supraventricular Beats in Runs: 0 Maximum S-T Levels Channel 1: 1.600 mm Maximum S-T Levels Channel 1 Date/Time: [id number] Minimum S-T Levels Channel 1: -0.400 mm Minimum S-T Levels Channel 1 Date/Time: [id number] Maximum S-T Levels Channel 2: 0.400 mm Minimum S-T Levels Channel 2: -2.000 mm Minimum S-T Levels Channel 2 Date/Time: [id number] Overreading Physician: ALAN GARVEY 20 yr ago URL 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 Technique: Extratemporal lobe seizure protocol. Three-dimensional multiplanar reformations were performed at the time of interpretation. The brain parenchyma is within normal limits of signal intensity and morphology for age. Specifically, there is no evidence of focal or more generalized encephalomalacia. No distinct developmental abnormality is identified. The myelination is appropriate for the child chronologic age. There is no evidence of hydrocephalus, intracranial mass, or extra axial fluid collection. IMPRESSION: NORMAL STUDY. Principal Bench Carpenter: MATTHEW MONIQUE EXAMINATION: MRI BRAIN WO IVCON CLINICAL HISTORY: Recurrent syncopal episodes. Technique: Coronal and axial CHINYERE-FLAIR, coronal CHINYERE-T2, axial diffusion, and high resolution sagittal gradient echo volume acquisition of the brain with coronal planar reconstructions. Comparison: None. RESULT: Acute Change: There is no evidence of an acute intracranial process. Hemorrhage: No clear evidence of prior parenchymal hemorrhage within the constraints of the acquisition. Mass Lesion/ Mass Effect: No evidence of an intracranial mass or extra-axial fluid collection. No significant mass effect. Hippocampi: No significant asymmetry in size, configuration or signal intensity characteristics of the mesial temporal structures. Chronic Change: No evidence of focal or regional parenchymal volume loss otherwise. The white matter is within normal limits of signal intensity for the patient's chronologic age. Parenchyma: No significant generalized parenchymal volume loss for age. The brain parenchyma is otherwise within normal limits of signal intensity and morphology. Developmental: No distinct developmental abnormality is seen. Ventricles: Normal caliber and configuration for age. Other: Incidental note is made of mild mucosal thickening in the left maxillary and right sphenoid sinuses. IMPRESSION IMPRESSION: Mild paranasal sinus inflammatory changes. Otherwise normal study. Operating Room Scheduler: AMAYA Transcribe Date/Time: Jan 04 2024 12:18P ASSESSMENT AND PLAN: Diagnosis Plan 1. Intractable migraine with aura without status migrainosus 2. Obstructive sleep apnea Polysomnography 3. Vertigo [facility] 4. Numbness in right leg 5. Cervicalgia She is to continue the topiramate and Nurtec. 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 Will get PSG. STOP BANG score of 5. Strong fam hx. Of DONTA. PT for right peripheral vertigo. EMG/NCS for right posterior leg numbnsess She just had x-rays in [place] and will get that. I advised her to follow up with Dr. Lock's team for the PNES. I spent 60 minutes caring for this patient today, reviewing labs and records, seeing the patient, documenting in the record and arranging for studies. documented in this encounter [facility] 11-04-2024 Note HNO ID: [id number] Author: CORAL HERNÁNDEZ, PhD Service: ? Author Type: Psychologist Type: Progress Notes Filed: 11/04/2024 23:07 Note Text: Pt cancelled this visit for health reason. [facility] 10-19-2024 Instructions Edwin Lock MD - 10/19/2024 4:24 PM EST Increase fluid intake Start daily exercise (pedal bike) Cut back on caffeine. Keep working on stress management. Edwin Lock MD documented in this encounter [facility] 10-19-2024 History of Present illness Narrative [facility] EPILEPSY CLINIC NOTE - RETURN VISIT CHIEF COMPLAINT: seizures LAST SEEN: 04/09/2024 for initial visit INTERVAL HISTORY At 04/09/2024 initial visit they reported two types of episodes, falling and staring, occurring weekly. I ordered inpatient video-EEG. She was admitted 04/28 - 05/03/2024 and mild events were recorded, with no EEG change. Orthostatic vitals were checked several times in the EMU, with no evidence for orthostatic hypotension. She felt events were triggered by stress. She started working with Dr. Hernández 06/01/2024, and last visit was 10/12/2024 with last episode (body felt overheated) documented as 09/26/2024. She was still taking TPM for migraine and GBP for anxiety, insomnia. She confirms episodes in EMU were mild without loss of awareness. Last episode was 09/26/2024: she was at home in her room, woke up at about 6A feeling hot, dizzy, room spinning, and headache, and at about 630A she stood up and after about 5 minutes of standing, fell to floor, hit head. She thinks she was out for about 30 seconds. It was unwitnessed. She feels it was triggered by stress. She was going through break-up and Gregory's day was approaching. She reports just two episodes 08/2024. Overall, she feels episodes are improved. Fluoxetine was changed to Cymbalta mid-Aug 2024, prescribed by psychiatrist. She had been on fluoxetine for years and felt more depressed recently, but mood is better on Cymbalta. Working with Dr. Hernández has helped her manage stress. She reports frequent (mild) dizziness. She drinks 3-4 small bottles of Powerade and 2 glasses of water each day. She has appt with Dr. Ramirez next month for headache. She sees PCP next month. She has cut down on caffeine intake (but still drinks 1-2 Cokes per day). She does not exercise much. SEIZURE HISTORY (from 04/09/2024 initial visit) The history of episodes began 08/2012 (at 12 years of age), per her mother. Per review of EMR, she has a h/o headaches since at least 2004. They worsened in [address] Fabiano Mckinney 08/05/2009. Headaches improved in 2009 but recurred in 2011 when her father developed health problems. She also started to have syncopal episodes in 2011. Dr. Wilhelm noted a recurrent episode of syncope 08/2012. 24-hour Holter was normal. There were five syncopal episodes from 08/2012 to 11/2013, all while standing, with narrowing of vision and ringing in her ears before LOC, suggestive of vasovagal syncope. Per patient, initial episodes were characterized by everything going black and hearing goes, like someone's covering her ears. Symptoms last about 10 seconds before she loses consciousness. She often falls and injures herself. In 2012, they were happening every [address] Ramirez and someone at [facility]. She had 24-hour EEG in the hospital; no episodes were recorded. 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 They do not remember hearing an explanation of MAXINE. Episodes went away for several years, for no clear reason. Episodes recurred in 2023; patient thinks 10/2023. They are now happening 2x/week. Often, feels out of it dizzy, lightheaded, lasting hours before the episode. Even walking, feels dizzy, lightheaded and shortness of breath. She has been riding a mobility scooter in the last 2 months. They have seen PCP for episodes but have not mentioned SOB while walking. But even just sitting on sofa, she can start sweating hours before an episode. TYPICAL EPISODES: 1) Falling episodes Description: Patient experiences everything going black and losing hearing for about 10 seconds, and then loses consciousness, often finding herself on the floor. Witnesses: they often just hear her fall; when they have been in the same room, they see her staring, then she falls limp, motionless for about one minute, then gets up, then listless for the rest of the day. Duration: 1-2 minutes Frequency: 2/week 2) Staring episodes No aura. Parent report staring, with delayed responses but she does typically respond to them. Duration: 1-2 minutes Frequency: at least weekly Triggers: flashing lights, video games and early development: FT , delivered via due to breech presentation (mother was on bedrest since early , due to bleeding); normal early development RISK FACTORS FOR SEIZURES 1. Head Trauma (Yes, concussions but none before episodes started); 2. CONSERVATION SCIENCE OFFICER Infections (No); 3. Family History of Seizures (Yes, maternal GM had seizures starting in her 40's and father has undiagnosed episodes, possible neurosarcoid); 4. Developmental Delay (No); 5. Febrile Seizures (No); 6. CONSERVATION SCIENCE OFFICER Tumors (No); 7. CONSERVATION SCIENCE OFFICER Vascular Disease (No); 8. Significant Medical History (depression, anxiety, migraine). CURRENT MEDICATION Current Outpatient Medications Medication Sig Desogestrel-Ethinyl Estradiol (APRI) 0.15-0.03 mg per tablet Take 1 tablet by mouth. CYMBALTA 20 mg capsule (Patient taking differently: Take 20 mg by mouth two times a day.) vitamin B complex (SUPER B COMPLEX ORAL) gabapentin (NEURONTIN) 300 mg capsule Take 300 mg by mouth daily at bedtime. gabapentin (NEURONTIN) 100 mg capsule levonorgestrel-ethinyl estradiol (JOLESSA) 0.15 mg-30 mcg (91) per tab, 3 month pack Take 1 tablet by mouth once daily. topiramate (TOPAMAX) 100 mg tablet Take 100 mg by mouth two times a day. pantoprazole DR (PROTONIX) 40 mg tablet Take 1 tablet by mouth once daily. levonorgestrel-ethinyl estradiol 0.15 mg-30 mcg (91) per tab, 3 month pack Take 1 tablet by mouth as directed. (Patient not taking: Reported on 10/08/2024) hydrOXYzine pamoate (VISTARIL) 25 mg capsule Take 1 capsule by mouth twice daily as needed. busPIRone HCl 30 mg tablet Take 1 tablet by mouth twice daily. NURTEC ODT 75 mg disintegrating tablet Take 1 tablet by mouth every 48 hours as needed. sucralfate (CARAFATE) 100 mg/mL suspension TAKE 10 ML (CC) BY MOUTH TWICE DAILY ON AN EMPTY STOMACH 1 HOUR BEFORE MEALS cholecalciferol (VITAMIN D-3) 5,000 unit tab Take 1 tablet by mouth once daily. ondansetron orally disintegrating (ZOFRAN ODT) 4 mg disintegrating tablet dissolve 1 tablet ON TONGUE every 4 hours if needed for nausea and vomiting No current facility-administered medications for this visit. Jolessa OCP Nurtec 75 mg every other day fluoxetine 10 mg cap + 40 mg cap = 50 mg daily TPM 100 mg BID (100 mg tablets) for migraine GBP 100 mg in AM, 300 mg cap qhs (for anxiety, insomnia) - prescribed by psychiatry also takes melatonin Buspar 30 mg BID Protonix 40 mg daily (LIDIA) Vistaril 25 mg PRN anxiety (averages 3x/week) ibuprofen PRN headaches and body aches (averages 2-3x/week) Adderall was stopped 2-3 months ago; psychiatrist did not think she needed it; she had been on it 2 years; it was only diagnosed in recent years but she had symptoms her whole life Psychiatrist: Lela Saleh, [facility]; visits are once per month Therapist also at [facility]; sessions are every 2 weeks Anxiety is high right now, in reaction to not feeling well. Bending over causes her dizziness. PRIOR ANTICONVULSANT HISTORY none for seizures PAST MEDICAL HISTORY PAST MEDICAL HISTORY Diagnosis Date Achilles bursitis or tendinitis 06/16/2009 Concussion 04/21/2015 Depression 04/2009, 04/2015 The depression 04/2015 was with suicidal ideation and patient was hospitalized. Equinus deformity of foot, acquired 06/16/2009 Headache(784.0) 12/09/2009 Menarche Age [age] Years Old Nonspecific (abnormal) findings on radiological and other examination of skull and head resolved assymetry of head Syncope 09/11/2012 Vasovagal episode 07/15/2015 Migraine: bilateral pounding headache, with nausea, photophobia, treated with Nurtec, prescribed by Dr. Rios. Since taking Nurtec every other day since 12/2023, no ED visits. Prior to that, was in ED 1-2x/month for Toradol. Depression SIMÓN Tilt table [address] [facility]; [facility] [place]: she felt dizzy but did not pass out; was told that she did not have POTS. PAST SURGICAL HISTORY PAST SURGICAL HISTORY Procedure Laterality Date PAST SURGICAL HISTORY OF 2005 Bilateral hip surgery PAST SURGICAL HISTORY OF 2006 Bilateral hip surgery plates removed TONSILLECTOMY & ADENOIDECTOMY <AGE 10 FAMILY HISTORY FAMILY HISTORY Problem Relation Age of Onset Diabetes Mother Cancer Mother skin- Unkn[place]w type Hypertension Father Psychiatry Father Diabetes Maternal Grandmother Asthma Maternal Grandmother Hypertension Maternal Grandmother Hypertension Paternal Grandmother Lipids Paternal Grandmother Diabetes Paternal Grandfather Hypertension Paternal Grandfather Cancer Paternal Grandfather Lympoma- leukemia other (leukemia) Paternal Grandfather Anesthesia Problems No Family History Father with balance issues, diagnosed with sarcoidosis, possible neurosarcoid, episodes of speech difficulty. SOCIAL HISTORY Social History Tobacco Use Smoking status: Never Smokeless tobacco: Never Vaping Use Vaping status: Never Used Substance Use Topics Alcohol use: No Drug use: No Lives with mom and dad. Was home schooled through high school. 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 Withdrew from college due to medical issues (GERD, esophagitis, anxiety). DATA 24-hour Holter (09/20/2012): Rare PACs and PVCs. With symptom of black out sinus rhythm was seen. Prior EEG results were reviewed. -EEG (10/14/2015, [facility] ): normal, no episodes recorded. She remembers having only one EEG ever, at [facility]. Prior MRI results were reviewed. -MRI brain wo (10/11/2015) report via Care Everywhere: Unremarkable -MRI brain wo (01/04/2024, [facility]) report via Care Everywhere: normal [CHAN: reviewed coronal FLAIR and coronal T1 images and I agree that MRI is normal] Tilt table (12/19/2023, [facility]): Mild postural increase in heart rate from 65 bpm to 99 bpm at end of tilt. Patient c/o dizziness, not feeling good, nausea, spinning sensation which correlated with heart rate in 90's with normal blood pressure. Video-EEG (04/28 - 05/03/2024): Normal No EEG change. Paroxysmal event. The patient had 5 of her typical episodes. During 1E, she had headache and nausea during photic stimulation with preserved awareness. During 2E, she had left sided headache and nausea post hyperventilation. For 3E, she endorsed feeling hot without other signs or symptoms. In 4E and 5E, her symptoms of dizziness and nausea were triggered by pedaling a small stationary bike. In all the above events, there was no EEG change. We did not record events with altered awareness. IMPRESSION 24yo RH woman with anxiety, depression, migraine, with two types of episodes: falling and staring. She was diagnosed with vasovagal syncope at 12 years of age and current falling episodes are similar. Her only clear epilepsy risk factor is FH of seizures in a maternal GM. She does have risk factors for PNES. Episodes had not been recorded with video-EEG, at time of initial visit 04/09/2024. Video-EEG 04/2024 recorded mild episodes without loss of awareness, so was inconclusive, but patient identified stress as a trigger and has been working with Dr. Hernández. She reports a decrease in frequency of episodes, from weekly to about one/month. The patient attributes the last episode 09/26/2024 to the stress of a recent break-up just prior to Gregory's Day. Prior cardiac evaluation including Holter with normal sinus rhythm during a black out and normal BP and HR with episode of nausea, dizziness during tilt-table 12/2023. Orthostatic vitals were normal in EMU 04/2024. There remains no clear evidence for epilepsy, (or cardiac syncope). PLAN Increase fluid intake Decrease caffeine intake Start daily exercise Continue f/u with mental health providers and stress management F/U with local neurologist for headache She should not be driving until episodes of loss of consciousness resolve. RTC 3-4 months, virtual visit The patient agreed with the plan as outlined above. I spent a total of 20 minutes on the date of the service which included preparing to see the patient, [id number] patient care, completing clinical documentation, obtaining and/or reviewing separately obtained history, counseling and educating the patient/family/caregiver, independently interpreting results (not separately reported), and communicating results to the patient/family/caregiver. Edwin Lock MD documented in this encounter [facility] 10-19-2024 Note HNO ID: [id number] Author: EDWIN LOCK MD Service: ? Author Type: Physician Type: Progress Notes Filed: 10/19/2024 18:19 Note Text: [facility] EPILEPSY CLINIC NOTE - RETURN VISIT CHIEF COMPLAINT: seizures LAST SEEN: 04/09/2024 for initial visit INTERVAL HISTORY At 04/09/2024 initial visit they reported two types of episodes, falling and staring, occurring weekly. I ordered inpatient video-EEG. She was admitted 04/28 - 05/03/2024 and mild events were recorded, with no EEG change. Orthostatic vitals were checked several times in the EMU, with no evidence for orthostatic hypotension. She felt events were triggered by stress. She started working with Dr. Hernández 06/01/2024, and last visit was 10/12/2024 with last episode (body felt overheated) documented as 09/26/2024. She was still taking TPM for migraine and GBP for anxiety, insomnia. She confirms episodes in EMU were mild without loss of awareness. Last episode was 09/26/2024: she was at home in her room, woke up at about 6A feeling hot, dizzy, room spinning, and headache, and at about 630A she stood up and after about 5 minutes of standing, fell to floor, hit head. She thinks she was out for about 30 seconds. It was unwitnessed. She feels it was triggered by stress. She was going through break-up and Gregory's day was approaching. She reports just two episodes 08/2024. Overall, she feels episodes are improved. Fluoxetine was changed to Cymbalta mid-Aug 2024, prescribed by psychiatrist. She had been on fluoxetine for years and felt more depressed recently, but mood is better on Cymbalta. Working with Dr. Hernández has helped her manage stress. She reports frequent (mild) dizziness. She drinks 3-4 small bottles of Powerade and 2 glasses of water each day. She has appt with Dr. Ramirez next month for headache. She sees PCP next month. She has cut down on caffeine intake (but still drinks 1-2 Cokes per day). She does not exercise much. SEIZURE HISTORY (from 04/09/2024 initial visit) The history of episodes began 08/2012 (at 12 years of age), per her mother. Per review of EMR, she has a h/o headaches since at least 2004. They worsened in [address] Fabiano Mckinney 08/05/2009. Headaches improved in 2009 but recurred in 2011 when her father developed health problems. She also started to have syncopal episodes in 2011. Dr. Wilhelm noted a recurrent episode of syncope 08/2012. 24-hour Holter was normal. There were five syncopal episodes from 08/2012 to 11/2013, all while standing, with narrowing of vision and ringing in her ears before LOC, suggestive of vasovagal syncope. Per patient, initial episodes were characterized by everything going black and hearing goes, like someone's covering her ears. Symptoms last about 10 seconds before she loses consciousness. She often falls and injures herself. In 2012, they were happening every [address] Ramirez and someone at [facility]. She had 24-hour EEG in the hospital; no episodes were recorded. 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 They do not remember hearing an explanation of MAXINE. Episodes went away for several years, for no clear reason. Episodes recurred in 2023; patient thinks 10/2023. They are now happening 2x/week. Often, feels out of it dizzy, lightheaded, lasting hours before the episode. Even walking, feels dizzy, lightheaded and shortness of breath. She has been riding a mobility scooter in the last 2 months. They have seen PCP for episodes but have not mentioned SOB while walking. But even just sitting on sofa, she can start sweating hours before an episode. TYPICAL EPISODES: 1) Falling episodes Description: Patient experiences everything going black and losing hearing for about 10 seconds, and then loses consciousness, often finding herself on the floor. Witnesses: they often just hear her fall; when they have been in the same room, they see her staring, then she falls limp, motionless for about one minute, then gets up, then listless for the rest of the day. Duration: 1-2 minutes Frequency: 2/week 2) Staring episodes No aura. Parent report staring, with delayed responses but she does typically respond to them. Duration: 1-2 minutes Frequency: at least weekly Triggers: flashing lights, video games and early development: FT , delivered via due to breech presentation (mother was on bedrest since early , due to bleeding); normal early development RISK FACTORS FOR SEIZURES 1. Head Trauma (Yes, concussions but none before episodes started); 2. CONSERVATION SCIENCE OFFICER Infections (No); 3. Family History of Seizures (Yes, maternal GM had seizures starting in her 40's and father has undiagnosed episodes, possible neurosarcoid); 4. Developmental Delay (No); 5. Febrile Seizures (No); 6. CONSERVATION SCIENCE OFFICER Tumors (No); 7. CONSERVATION SCIENCE OFFICER Vascular Disease (No); 8. Sig (more content not included)... [facility] 10-12-2024 Note HNO ID: [id number] Author: CORAL HERNÁNDEZ, PhD Service: ? Author Type: Psychologist Type: Progress Notes Filed: 10/12/2024 10:28 Note Text: PSYCHOLOGY NOTE: Virtual visit This psychotherapy session was conducted virtually using [employer]. Consent related to virtual visit was provided verbally after information was read to patient. Current location: home Emergency contact: mother S/O: This is a 24 year-old patient with nonepileptic seizures/conversion disorder, chronic fatigue syndrome and living with her parents is in counseling for management of her symptoms. # of seizures per week: 0 Last day of PNES episode: 09/26/2024 when her body feels overheated Depression: 03/24 on Cymbalta 20mg; sees outside therapist every 2 weeks Anxiety: 11/22 Function: video games, watch TV with parents and playing board games, trying to do more to get out of the house; on disability Hydroxyzine as needed; Gabapentin 100mg in am 300 mg in pm ; Cymbalta 20mg bid; Buspar 30mg bid, melatonin Semiology: staring, black out, and drop attacks CBT Workbook Taking Control of PNES Chapter 5: Identifying seizure triggers Patient brought the PNES workbook, reviewed the reading, and completed the assignment. Discussed physical, internal and external triggers of nonepileptic seizures. Made goals to prevent these triggers, learn to modify, and/or accept unavoidable triggers so to avoid having target symptoms such as seizure episodes. Triggers: exhaustion, anxiety, anger, illness, headache, criticism, fear of failure, argument, overwork, and tension. Patient also completed a self observation exercise to learn to be more attuned to inner experiences and be able to identify seizure triggers. Motivation and understanding of the material appeared good. Asked appropriate questions. Assignment included reading the following Chapter on Channeling Negative Emotions into Productive Outlets, completing the assignment and goals, keeping a seizure log, a thought record, and a daily journal. MENTAL STATUS EXAM: The patient was alert, oriented. Eye contact was full on camera. Affect was blunted. Her judgment/insight was good. The patient admitted having depressed mood. SI/HI was denied. Childhood trauma: I stress out a lot about at home, my father stopped working, my father had a stroke- like symptoms July 2012, but he didn't; he hasn't been the same. His personality changed. He is more irritable. My father also diagnosed with conversion disorder. In 2012, I started having these episodes. She said in 2008, family lost her house to foreclosure and financial stress. Mother is disabled with back pain. Patient was home-schooled. She had 2 siblings, sister is 42 and brother is older than her sister. My sister is not in my life now. Sister's was angry often but now being . Patient response: Patient presented with the workbook. Didn't read chapter 1 and we used the session to discuss it. Still having seizures and depressed. She engages in online games but feel bullied. Patient also discussed that medications is changed to Cymbalta and she is still struggling with depression. Depression coping strategies were discussed. IMPRESSION: The patient with a history of seizure like episodes was diagnosed in the VEEG monitoring unit with nonepileptic seizures. The patient has PNES risk factors including past trauma of her mother's back pain/fully disabled throughout patient's life, father's health crisis (diagnosed as Conversion Disorder) when patient was 11 year-old, and her own health issues that followed a year later after her father's illness also diagnosed as conversion disorder. The family went through foreclosure and financial stress and 3 years later her father was diagnosed with conversion disorder. The patient chronically anxious about financial security. She was diagnosed with MDD and PTSD a year ago from her father's illness/financial loss and she is in treatment for it. She broke up with her girlfriend 3 weeks ago and she noted that she coped with the grief by distraction and playing games; watching movies; but also listening to sad music that makes her feel worse. We also discussed identifying unhelpful thoughts and replacing with beneficial thoughts. The patient has current MH providers. Mood is partially controlled on current regimen of medications and her psychiatrist plans to change her medications at next visit. MAXINE symptoms significantly interfere with patient's function and quality of life. The patient is interested to attend our 12 week NBT counseling here and prognosis appears to be moderate. DIAGNOSIS (PROVISIONAL) 1. Functional Neurological Symptom Disorder 2. PTSD by history 3. 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 [facility] 10-12-2024 History of Present illness Narrative Images from the original note were not included. PSYCHOLOGY NOTE: Virtual visit This psychotherapy session was conducted virtually using [employer]. Consent related to virtual visit was provided verbally after information was read to patient. Current location: home Emergency contact: mother S/O: This is a 24 year-old patient with nonepileptic seizures/conversion disorder, chronic fatigue syndrome and living with her parents is in counseling for management of her symptoms. # of seizures per week: 0 Last day of PNES episode: 09/26/2024 when her body feels overheated Depression: 03/24 on Cymbalta 20mg; sees outside therapist every 2 weeks Anxiety: 11/22 Function: video games, watch TV with parents and playing board games, trying to do more to get out of the house; on disability Hydroxyzine as needed; Gabapentin 100mg in am 300 mg in pm ; Cymbalta 20mg bid; Buspar 30mg bid, melatonin Semiology: staring, black out, and drop attacks CBT Workbook Taking Control of PNES Chapter 5: Identifying seizure triggers Patient brought the PNES workbook, reviewed the reading, and completed the assignment. Discussed physical, internal and external triggers of nonepileptic seizures. Made goals to prevent these triggers, learn to modify, and/or accept unavoidable triggers so to avoid having target symptoms such as seizure episodes. Triggers: exhaustion, anxiety, anger, illness, headache, criticism, fear of failure, argument, overwork, and tension. Patient also completed a self observation exercise to learn to be more attuned to inner experiences and be able to identify seizure triggers. Motivation and understanding of the material appeared good. Asked appropriate questions. Assignment included reading the following Chapter on Channeling Negative Emotions into Productive Outlets, completing the assignment and goals, keeping a seizure log, a thought record, and a daily journal. MENTAL STATUS EXAM: The patient was alert, oriented. Eye contact was full on camera. Affect was blunted. Her judgment/insight was good. The patient admitted having depressed mood. SI/HI was denied. Childhood trauma: I stress out a lot about at home, my father stopped working, my father had a stroke- like symptoms July 2012, but he didn't; he hasn't been the same. His personality changed. He is more irritable. My father also diagnosed with conversion disorder. In 2012, I started having these episodes. She said in 2008, family lost her house to foreclosure and financial stress. Mother is disabled with back pain. Patient was home-schooled. She had 2 siblings, sister is 42 and brother is older than her sister. My sister is not in my life now. Sister's was angry often but now being . Patient response: Patient presented with the workbook. Didn't read chapter 1 and we used the session to discuss it. Still having seizures and depressed. She engages in online games but feel bullied. Patient also discussed that medications is changed to Cymbalta and she is still struggling with depression. Depression coping strategies were discussed. IMPRESSION: The patient with a history of seizure like episodes was diagnosed in the VEEG monitoring unit with nonepileptic seizures. The patient has PNES risk factors including past trauma of her mother's back pain/fully disabled throughout patient's life, father's health crisis (diagnosed as Conversion Disorder) when patient was 11 year-old, and her own health issues that followed a year later after her father's illness also diagnosed as conversion disorder. The family went through foreclosure and financial stress and 3 years later her father was diagnosed with conversion disorder. The patient chronically anxious about financial security. She was diagnosed with MDD and PTSD a year ago from her father's illness/financial loss and she is in treatment for it. She broke up with her girlfriend 3 weeks ago and she noted that she coped with the grief by distraction and playing games; watching movies; but also listening to sad music that makes her feel worse. We also discussed identifying unhelpful thoughts and replacing with beneficial thoughts. The patient has current MH providers. Mood is partially controlled on current regimen of medications and her psychiatrist plans to change her medications at next visit. MAXINE symptoms significantly interfere with patient's function and quality of life. The patient is interested to attend our 12 week NBT counseling here and prognosis appears to be moderate. DIAGNOSIS (PROVISIONAL) 1. Functional Neurological Symptom Disorder 2. PTSD by history 3. 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 TREATMENT GOALS: Decrease seizure frequency Decrease symptoms of Anxiety/depression and other stress reactions Increase identification of emotions and emotional regulation Learn healthy tools for emotional release Set healthy boundaries with others Set healthy boundaries with self Increase tools related to communication Increase interest in activities/interest in life Increase healthy lifestyle routines (sleep, exercise, schedule) Develop mindfulness/meditation practice(s) Increase healthy choices with food Increase physical activity Explore and engage in activities that align with interests TREATMENT PLAN: Weekly sessions for treatment of Conversion Disorder with Seizure Attacks Time spent with patient: 30 minutes Coral Hernández, PhD Clinical Psychologist [facility] documented in this encounter [facility] 10-08-2024 Note HNO ID: [id number] Author: HYACINTH GONSALES APRN.MANAGER INTERNAL Service: ? Author Type: Nurse Practitioner Type: Progress Notes Filed: 10/08/2024 14:07 Note Text: Donnie Maldonado is a 24 year old female who presents with Urinary Problem (Frequency started 3-4 days ago //Denies chance of STI or /) and Fever (Mostly at night /Started 2-3 days ago /) Started with urgency and frequency. Noticed at night the past few nights has elevated tempature. Denies any other associated sx. Fever PAST MEDICAL HISTORY Diagnosis Date Achilles bursitis or tendinitis 06/16/2009 Concussion 04/21/2015 Depression 04/2009, 04/2015 The depression 04/2015 was with suicidal ideation and patient was hospitalized. Equinus deformity of foot, acquired 06/16/2009 Headache(784.0) 12/09/2009 Menarche Age [age] Years Old Nonspecific (abnormal) findings on radiological and other examination of skull and head resolved assymetry of head Syncope 09/11/2012 Vasovagal episode 07/15/2015 ACTIVE PROBLEM LIST Equinus Deformity of Foot, Acquired Achilles Bursitis Or Tendinitis Headache Syncope Social Phobia Generalized Anxiety Disorder Sob (Shortness of Breath) On Exertion Obesity Somatoform Disorder Depression Concussion Vasovagal Episode Seizure-Like Activity (Hcc) Obesity, Class III, BMI >= 40 Current Outpatient Medications Medication Sig Dispense Refill Desogestrel-Ethinyl Estradiol (APRI) 0.15-0.03 mg per tablet Take 1 tablet by mouth. CYMBALTA 20 mg capsule (Patient taking differently: Take 20 mg by mouth two times a day.) vitamin B complex (SUPER B COMPLEX ORAL) gabapentin (NEURONTIN) 300 mg capsule Take 300 mg by mouth daily at bedtime. gabapentin (NEURONTIN) 100 mg capsule levonorgestrel-ethinyl estradiol (JOLESSA) 0.15 mg-30 mcg (91) per tab, 3 month pack Take 1 tablet by mouth once daily. topiramate (TOPAMAX) 100 mg tablet Take 100 mg by mouth two times a day. pantoprazole DR (PROTONIX) 40 mg tablet Take 1 tablet by mouth once daily. 180 tablet 3 hydrOXYzine pamoate (VISTARIL) 25 mg capsule Take 1 capsule by mouth twice daily as needed. busPIRone HCl 30 mg tablet Take 1 tablet by mouth twice daily. NURTEC ODT 75 mg disintegrating tablet Take 1 tablet by mouth every 48 hours as needed. sucralfate (CARAFATE) 100 mg/mL suspension TAKE 10 ML (CC) BY MOUTH TWICE DAILY ON AN EMPTY STOMACH 1 HOUR BEFORE MEALS cholecalciferol (VITAMIN D-3) 5,000 unit tab Take 1 tablet by mouth once daily. ondansetron orally disintegrating (ZOFRAN ODT) 4 mg disintegrating tablet dissolve 1 tablet ON TONGUE every 4 hours if needed for nausea and vomiting 60 tablet 2 FLUoxetine (PROZAC) 10 mg capsule Take 10 mg by mouth once daily. levonorgestrel-ethinyl estradiol 0.15 mg-30 mcg (91) per tab, 3 month pack Take 1 tablet by mouth as directed. (Patient not taking: Reported on 10/08/2024) FLUoxetine (PROZAC) 40 mg capsule Take 1 capsule by mouth once daily. No current facility-administered medications for this visit. Social History Tobacco Use Smoking status: Never Smokeless tobacco: Never Vaping Use Vaping status: Never Used Substance Use Topics Alcohol use: No Drug use: No Alcohol Use: No Tobacco Use: Never FAMILY HISTORY Problem Relation Age of Onset Diabetes Mother Cancer Mother skin- Unknonw type Hypertension Father Psychiatry Father Diabetes Maternal Grandmother Asthma Maternal Grandmother Hypertension Maternal Grandmother Hypertension Paternal Grandmother Lipids Paternal Grandmother Diabetes Paternal Grandfather Hypertension Paternal Grandfather Cancer Paternal Grandfather Lympoma- leukemia other (leukemia) Paternal Grandfather Anesthesia Problems No Family History Review of Systems Constitutional: Positive for chills and fever. HENT: Negative. Eyes: Negative. Respiratory: Negative. Cardiovascular: Negative. Gastrointestinal: Negative for abdominal pain. Genitourinary: Positive for dysuria, frequency and urgency. Negative for hematuria. Musculoskeletal: Positive for back pain. All other systems reviewed and are negative. BP 149/95 Pulse 101 Temp (Src) 97.6 (Temporal) Resp 18 Wt 293 lb (132.9kg) SpO2 97% Physical Exam Vitals and nursing note reviewed. Constitutional: General: She is not in acute distress. Appearance: Normal appearance. She is not ill-appearing or diaphoretic. HENT: Nose: No congestion or rhinorrhea. Mouth/Throat: Pharynx: No oropharyngeal exudate or posterior oropharyngeal erythema. Eyes: Extraocular Movements: Extraocular movements intact. Conjunctiva/sclera: Conjunctivae normal. Pupils: Pupils are equal, round, and reactive to light. Cardiovascular: Rate and Rhythm: Normal rate and regular rhythm. Pulmonary: Effort: Pulmonary effort is normal. No respiratory distress. Breath sounds: Normal breath sounds. No stridor. No wheezing, rhonchi or rales. Chest: Chest wall: No tend (more content not included)... [facility] 10-08-2024 History of Present illness Narrative Donnie Maldonado is a 24 year old female who presents with Urinary Problem (Frequency started 3-4 days ago //Denies chance of STI or /) and Fever (Mostly at night /Started 2-3 days ago /) Started with urgency and frequency. Noticed at night the past few nights has elevated tempature. Denies any other associated sx. Fever PAST MEDICAL HISTORY Diagnosis Date Achilles bursitis or tendinitis 06/16/2009 Concussion 04/21/2015 Depression 04/2009, 04/2015 The depression 04/2015 was with suicidal ideation and patient was hospitalized. Equinus deformity of foot, acquired 06/16/2009 Headache(784.0) 12/09/2009 Menarche Age [age] Years Old Nonspecific (abnormal) findings on radiological and other examination of skull and head resolved assymetry of head Syncope 09/11/2012 Vasovagal episode 07/15/2015 ACTIVE PROBLEM LIST Equinus Deformity of Foot, Acquired Achilles Bursitis Or Tendinitis Headache Syncope Social Phobia Generalized Anxiety Disorder Sob (Shortness of Breath) On Exertion Obesity Somatoform Disorder Depression Concussion Vasovagal Episode Seizure-Like Activity (Hcc) Obesity, Class III, BMI >= 40 Current Outpatient Medications Medication Sig Dispense Refill Desogestrel-Ethinyl Estradiol (APRI) 0.15-0.03 mg per tablet Take 1 tablet by mouth. CYMBALTA 20 mg capsule (Patient taking differently: Take 20 mg by mouth two times a day.) vitamin B complex (SUPER B COMPLEX ORAL) gabapentin (NEURONTIN) 300 mg capsule Take 300 mg by mouth daily at bedtime. gabapentin (NEURONTIN) 100 mg capsule levonorgestrel-ethinyl estradiol (JOLESSA) 0.15 mg-30 mcg (91) per tab, 3 month pack Take 1 tablet by mouth once daily. topiramate (TOPAMAX) 100 mg tablet Take 100 mg by mouth two times a day. pantoprazole DR (PROTONIX) 40 mg tablet Take 1 tablet by mouth once daily. 180 tablet 3 hydrOXYzine pamoate (VISTARIL) 25 mg capsule Take 1 capsule by mouth twice daily as needed. busPIRone HCl 30 mg tablet Take 1 tablet by mouth twice daily. NURTEC ODT 75 mg disintegrating tablet Take 1 tablet by mouth every 48 hours as needed. sucralfate (CARAFATE) 100 mg/mL suspension TAKE 10 ML (CC) BY MOUTH TWICE DAILY ON AN EMPTY STOMACH 1 HOUR BEFORE MEALS cholecalciferol (VITAMIN D-3) 5,000 unit tab Take 1 tablet by mouth once daily. ondansetron orally disintegrating (ZOFRAN ODT) 4 mg disintegrating tablet dissolve 1 tablet ON TONGUE every 4 hours if needed for nausea and vomiting 60 tablet 2 FLUoxetine (PROZAC) 10 mg capsule Take 10 mg by mouth once daily. levonorgestrel-ethinyl estradiol 0.15 mg-30 mcg (91) per tab, 3 month pack Take 1 tablet by mouth as directed. (Patient not taking: Reported on 10/08/2024) FLUoxetine (PROZAC) 40 mg capsule Take 1 capsule by mouth once daily. No current facility-administered medications for this visit. Social History Tobacco Use Smoking status: Never Smokeless tobacco: Never Vaping Use Vaping status: Never Used Substance Use Topics Alcohol use: No Drug use: No Alcohol Use: No Tobacco Use: Never FAMILY HISTORY Problem Relation Age of Onset Diabetes Mother Cancer Mother skin- Unknonw type Hypertension Father Psychiatry Father Diabetes Maternal Grandmother Asthma Maternal Grandmother Hypertension Maternal Grandmother Hypertension Paternal Grandmother Lipids Paternal Grandmother Diabetes Paternal Grandfather Hypertension Paternal Grandfather Cancer Paternal Grandfather Lympoma- leukemia other (leukemia) Paternal Grandfather Anesthesia Problems No Family History Review of Systems Constitutional: Positive for chills and fever. HENT: Negative. Eyes: Negative. Respiratory: Negative. Cardiovascular: Negative. Gastrointestinal: Negative for abdominal pain. Genitourinary: Positive for dysuria, frequency and urgency. Negative for hematuria. Musculoskeletal: Positive for back pain. All other systems reviewed and are negative. BP 149/95 Pulse 101 Temp (Src) 97.6 (Temporal) Resp 18 Wt 293 lb (132.9kg) SpO2 97% Physical Exam Vitals and nursing note reviewed. Constitutional: General: She is not in acute distress. Appearance: Normal appearance. She is not ill-appearing or diaphoretic. HENT: Nose: No congestion or rhinorrhea. Mouth/Throat: Pharynx: No oropharyngeal exudate or posterior oropharyngeal erythema. Eyes: Extraocular Movements: Extraocular movements intact. Conjunctiva/sclera: Conjunctivae normal. Pupils: Pupils are equal, round, and reactive to light. Cardiovascular: Rate and Rhythm: Normal rate and regular rhythm. Pulmonary: Effort: Pulmonary effort is normal. No respiratory distress. Breath sounds: Normal breath sounds. No stridor. No wheezing, rhonchi or rales. Chest: Chest wall: No tenderness. Abdominal: General: Abdomen is flat. Bowel sounds are normal. There is no distension. Palpations: Abdomen is soft. There is no mass. Tenderness: There is no abdominal tenderness. There is no right CVA tenderness, left CVA tenderness, guarding or rebound. Hernia: No hernia is present. Skin: General: Skin is warm and dry. Capillary Refill: Capillary refill takes less than 2 seconds. Neurological: General: No focal deficit present. Mental Status: She is alert and oriented to person, place, and time. ASSESSMENT/PLAN: 1. Urinary problem - ICD9: V47.4, ICD10: R39.89 (primary diagnosis) - URINALYSIS, DIPSTICK ONLY 2. Acute cystitis with hematuria - ICD9: 595.0, ICD10: N30.01 Went over diagnosis and prevention strategies. Also medications and will call if culture necessitates a change in her treatment. Questions answered patient was discharged from - NITROFURANTOIN MONOHYDRATE & MACROCRYSTAL 100 MG ORAL CAP - PHENAZOPYRIDINE 200 MG TABLET - BACTERIAL CULTURE, URINE Hyacinth Gonsales CNP This note was partially generated using [employer] voice recognition system, and there may be some incorrect words, spellings, and punctuation that were not noted in checking the note before saving. documented in this encounter [facility] 10-01-2024 Note HNO ID: [id number] Author: CORAL HERNÁNDEZ, PhD Service: ? Author Type: Psychologist Type: Progress Notes Filed: 10/01/2024 14:37 Note Text: Rescheduled [facility] 09-28-2024 Note HNO ID: [id number] Author: CORAL HERNÁNDEZ, PhD Service: ? Author Type: Psychologist Type: Progress Notes Filed: 10/01/2024 14:32 Note Text: PSYCHOLOGY NOTE: Virtual visit This psychotherapy session was conducted virtually using [employer]. Consent related to virtual visit was provided verbally after information was read to patient. Current location: home Emergency contact: mother S/O: This is a 24 year-old patient with nonepileptic seizures/conversion disorder, chronic fatigue syndrome and living with her parents is in counseling for management of her symptoms. # of seizures per week: 1 Last day of PNES episode: 09/26/2024 when her body feels overheated Depression: 03/24 on Cymbalta 20mg; sees outside therapist every 2 weeks Anxiety: 11/22 Function: video games, watch TV with parents and playing board games, trying to do more to get out of the house; on disability Hydroxyzine as needed; Gabapentin 400mg ; Cymbalta 20mg; Buspar 30mg bid, melatonin Semiology: staring, black out, and drop attacks CBT Workbook Taking Control of PNES Chapter 2 - Overview of treatment The patient reviewed the chapter on making a decision to begin the treatment. The material covers the treatment program, patient's pros and cons for engaging in the treatment, assess obstacles and motivators to make a decision to participate in the program to learn to take control of the seizures. Patient signed the contract to do the CBTip treatment and discussed its significance. The patient's understanding of the material appeared good; asked appropriate questions. Assignment included reading Chapter 3 on Getting Support, keeping a seizure log and a daily journal. Chapter 3 - Getting Support Patient reviewed the chapter and completed the assignment. The material covers the importance of getting support in the process of getting control, and strategies for reducing isolation for seizure patients. The patient identified a support person to be a source of support while in this program. Most of the session was spent discussing assertive, passive, and aggressive communication types and role play was utilized to demonstrate assertive communication. Her goal is to start writing in her journal. Understanding of the material appeared good; asked appropriate questions. Assignment included reading the following chapter, completing the assignment, keeping a seizure log and a daily journal. MENTAL STATUS EXAM: The patient was alert, oriented. Eye contact was full on camera. Affect was blunted. Her judgment/insight was good. The patient admitted having depressed mood. SI/HI was denied. Childhood trauma: I stress out a lot about at home, my father stopped working, my father had a stroke- like symptoms July 2012, but he didn't; he hasn't been the same. His personality changed. He is more irritable. My father also diagnosed with conversion disorder. In 2012, I started having these episodes. She said in 2008, family lost her house to foreclosure and financial stress. Mother is disabled with back pain. Patient was home-schooled. She had 2 siblings, sister is 42 and brother is older than her sister. My sister is not in my life now. Sister's was angry often but now being . Patient response: Patient presented with the workbook. Didn't read chapter 1 and we used the session to discuss it. Still having seizures and depressed. She engages in online games but feel bullied. Patient also discussed that medications is changed to Cymbalta and she is still struggling with depression. Depression coping strategies were discussed. IMPRESSION: The patient with a history of seizure like episodes was diagnosed in the VEEG monitoring unit with nonepileptic seizures. The patient has PNES risk factors including past trauma of her mother's back pain/fully disabled throughout patient's life, father's health crisis (diagnosed as Conversion Disorder) when patient was 11 year-old, and her own health issues that followed a year later after her father's illness also diagnosed as conversion disorder. The family went through foreclosure and financial stress and 3 years later her father was diagnosed with conversion disorder. The patient chronically anxious about financial security. She was diagnosed with MDD and PTSD a year ago from her father's illness/financial loss and she is in treatment for it. She broke up with her girlfriend 3 weeks ago and she noted that she coped with the grief by distraction and playing games; watching movies; but also listening to sad music that makes her feel worse. We also discussed identifying unhelpful thoughts and replacing with beneficial thoughts. The patient has current MH providers. Mood is partially controlled on current regimen of medications and her psychiatrist plans to change her medications at next visit. MAXINE symptoms significantly interfere with patient's function and (more content not included)... [facility] 09-28-2024 History of Present illness Narrative Images from the original note were not included. PSYCHOLOGY NOTE: Virtual visit This psychotherapy session was conducted virtually using [employer]. Consent related to virtual visit was provided verbally after information was read to patient. Current location: home Emergency contact: mother S/O: This is a 24 year-old patient with nonepileptic seizures/conversion disorder, chronic fatigue syndrome and living with her parents is in counseling for management of her symptoms. # of seizures per week: 1 Last day of PNES episode: 09/26/2024 when her body feels overheated Depression: 03/24 on Cymbalta 20mg; sees outside therapist every 2 weeks Anxiety: 11/22 Function: video games, watch TV with parents and playing board games, trying to do more to get out of the house; on disability Hydroxyzine as needed; Gabapentin 400mg ; Cymbalta 20mg; Buspar 30mg bid, melatonin Semiology: staring, black out, and drop attacks CBT Workbook Taking Control of PNES Chapter 2 - Overview of treatment The patient reviewed the chapter on making a decision to begin the treatment. The material covers the treatment program, patient's pros and cons for engaging in the treatment, assess obstacles and motivators to make a decision to participate in the program to learn to take control of the seizures. Patient signed the contract to do the CBTip treatment and discussed its significance. The patient's understanding of the material appeared good; asked appropriate questions. Assignment included reading Chapter 3 on Getting Support, keeping a seizure log and a daily journal. Chapter 3 - Getting Support Patient reviewed the chapter and completed the assignment. The material covers the importance of getting support in the process of getting control, and strategies for reducing isolation for seizure patients. The patient identified a support person to be a source of support while in this program. Most of the session was spent discussing assertive, passive, and aggressive communication types and role play was utilized to demonstrate assertive communication. Her goal is to start writing in her journal. Understanding of the material appeared good; asked appropriate questions. Assignment included reading the following chapter, completing the assignment, keeping a seizure log and a daily journal. MENTAL STATUS EXAM: The patient was alert, oriented. Eye contact was full on camera. Affect was blunted. Her judgment/insight was good. The patient admitted having depressed mood. SI/HI was denied. Childhood trauma: I stress out a lot about at home, my father stopped working, my father had a stroke- like symptoms July 2012, but he didn't; he hasn't been the same. His personality changed. He is more irritable. My father also diagnosed with conversion disorder. In 2012, I started having these episodes. She said in 2008, family lost her house to foreclosure and financial stress. Mother is disabled with back pain. Patient was home-schooled. She had 2 siblings, sister is 42 and brother is older than her sister. My sister is not in my life now. Sister's was angry often but now being . Patient response: Patient presented with the workbook. Didn't read chapter 1 and we used the session to discuss it. Still having seizures and depressed. She engages in online games but feel bullied. Patient also discussed that medications is changed to Cymbalta and she is still struggling with depression. Depression coping strategies were discussed. IMPRESSION: The patient with a history of seizure like episodes was diagnosed in the VEEG monitoring unit with nonepileptic seizures. The patient has PNES risk factors including past trauma of her mother's back pain/fully disabled throughout patient's life, father's health crisis (diagnosed as Conversion Disorder) when patient was 11 year-old, and her own health issues that followed a year later after her father's illness also diagnosed as conversion disorder. The family went through foreclosure and financial stress and 3 years later her father was diagnosed with conversion disorder. The patient chronically anxious about financial security. She was diagnosed with MDD and PTSD a year ago from her father's illness/financial loss and she is in treatment for it. She broke up with her girlfriend 3 weeks ago and she noted that she coped with the grief by distraction and playing games; watching movies; but also listening to sad music that makes her feel worse. We also discussed identifying unhelpful thoughts and replacing with beneficial thoughts. The patient has current MH providers. Mood is partially controlled on current regimen of medications and her psychiatrist plans to change her medications at next visit. MAXINE symptoms significantly interfere with patient's function and quality of life. The patient is interested to attend our 12 week NBT counseling here and prognosis appears to be moderate. DIAGNOSIS (PROVISIONAL) 1. Functional Neurological Symptom Disorder 2. PTSD by history 3. 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 TREATMENT GOALS: Decrease seizure frequency Decrease symptoms of Anxiety/depression and other stress reactions Increase identification of emotions and emotional regulation Learn healthy tools for emotional release Set healthy boundaries with others Set healthy boundaries with self Increase tools related to communication Increase interest in activities/interest in life Increase healthy lifestyle routines (sleep, exercise, schedule) Develop mindfulness/meditation practice(s) Increase healthy choices with food Increase physical activity Explore and engage in activities that align with interests TREATMENT PLAN: Weekly sessions for treatment of Conversion Disorder with Seizure Attacks Time spent with patient: 30 minutes Coral Hernández, PhD Clinical [facility] documented in this encounter [facility] 09-21-2024 Note HNO ID: [id number] Author: CORAL HERNÁNDEZ, PhD Service: ? Author Type: Psychologist Type: Progress Notes Filed: 09/21/2024 11:38 Note Text: PSYCHOLOGY NOTE: Virtual visit This psychotherapy session was conducted virtually using [employer]. Consent related to virtual visit was provided verbally after information was read to patient. Current location: home Emergency contact: mother S/O: This is a 24 year-old patient with nonepileptic seizures/conversion disorder, chronic fatigue syndrome and living with her parents is in counseling for management of her symptoms. # of seizures per week: 1 I collapsed Last day of PNES episode: 09/13/2024 Depression: 03/24 changing from fluoxetine to Cymbalta 20; sees outside therapist every 2 weeks. It is situational depression, getting stressed about my health. I don't feel physically upto activities. I dont go to a concert. Anxiety: 11/22 Taught the patient a gratitude meditation Function: video games, watch TV with parents and playing board games, trying to do more to get out of the house; on disability Hydroxyzine as needed; Gabapentin 400mg ; Cymbalta 20mg; Buspar 30mg bid, melatonin Semiology: staring, black out, and drop attacks CBT Workbook Taking Control of PNES Chapter 2 - Overview of treatment The patient reviewed the chapter on making a decision to begin the treatment. The material covers the treatment program, patient's pros and cons for engaging in the treatment, assess obstacles and motivators to make a decision to participate in the program to learn to take control of the seizures. Patient signed the contract to do the CBTip treatment and discussed its significance. The patient's understanding of the material appeared good; asked appropriate questions. Assignment included reading Chapter 3 on Getting Support, keeping a seizure log and a daily journal. MENTAL STATUS EXAM: The patient was alert, oriented. Eye contact was full on camera. Affect was blunted. Her judgment/insight was good. The patient admitted having depressed mood. SI/HI was denied. Childhood trauma: I stress out a lot about at home, my father stopped working, my father had a stroke- like symptoms July 2012, but he didn't; he hasn't been the same. His personality changed. He is more irritable. My father also diagnosed with conversion disorder. In 2012, I started having these episodes. She said in 2008, family lost her house to foreclosure and financial stress. Mother is disabled with back pain. Patient was home-schooled. She had 2 siblings, sister is 42 and brother is older than her sister. My sister is not in my life now. Sister's was angry often but now being . Patient response: Patient presented with the workbook. Didn't read chapter 1 and we used the session to discuss it. Still having seizures and depressed. She engages in online games but feel bullied. Patient also discussed that medications is changed to Cymbalta and she is still struggling with depression. Depression coping strategies were discussed. IMPRESSION: The patient with a history of seizure like episodes was diagnosed in the VEEG monitoring unit with nonepileptic seizures. The patient has PNES risk factors including past trauma of her mother's back pain/fully disabled throughout patient's life, father's health crisis (diagnosed as Conversion Disorder) when patient was 11 year-old, and her own health issues that followed a year later after her father's illness also diagnosed as conversion disorder. The family went through foreclosure and financial stress and 3 years later her father was diagnosed with conversion disorder. The patient chronically anxious about financial security. She was diagnosed with MDD and PTSD a year ago from her father's illness/financial loss and she is in treatment for it. She broke up with her girlfriend 3 weeks ago and she noted that she coped with the grief by distraction and playing games; watching movies; but also listening to sad music that makes her feel worse. We also discussed identifying unhelpful thoughts and replacing with beneficial thoughts. The patient has current MH providers. Mood is partially controlled on current regimen of medications and her psychiatrist plans to change her medications at next visit. MAXINE symptoms significantly interfere with patient's function and quality of life. The patient is interested to attend our 12 week NBT counseling here and progress is good. DIAGNOSIS (PROVISIONAL) 1. Functional Neurological Symptom Disorder 2. PTSD by history 3. 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 [facility] 09-21-2024 History of Present illness Narrative PSYCHOLOGY NOTE: Virtual visit This psychotherapy session was conducted virtually using [employer]. Consent related to virtual visit was provided verbally after information was read to patient. Current location: home Emergency contact: mother S/O: This is a 24 year-old patient with nonepileptic seizures/conversion disorder, chronic fatigue syndrome and living with her parents is in counseling for management of her symptoms. # of seizures per week: 1 I collapsed Last day of PNES episode: 09/13/2024 Depression: 03/24 changing from fluoxetine to Cymbalta 20; sees outside therapist every 2 weeks. It is situational depression, getting stressed about my health. I don't feel physically upto activities. I dont go to a concert. Anxiety: 11/22 Taught the patient a gratitude meditation Function: video games, watch TV with parents and playing board games, trying to do more to get out of the house; on disability Hydroxyzine as needed; Gabapentin 400mg ; Cymbalta 20mg; Buspar 30mg bid, melatonin Semiology: staring, black out, and drop attacks CBT Workbook Taking Control of PNES Chapter 2 - Overview of treatment The patient reviewed the chapter on making a decision to begin the treatment. The material covers the treatment program, patient's pros and cons for engaging in the treatment, assess obstacles and motivators to make a decision to participate in the program to learn to take control of the seizures. Patient signed the contract to do the CBTip treatment and discussed its significance. The patient's understanding of the material appeared good; asked appropriate questions. Assignment included reading Chapter 3 on Getting Support, keeping a seizure log and a daily journal. MENTAL STATUS EXAM: The patient was alert, oriented. Eye contact was full on camera. Affect was blunted. Her judgment/insight was good. The patient admitted having depressed mood. SI/HI was denied. Childhood trauma: I stress out a lot about at home, my father stopped working, my father had a stroke- like symptoms July 2012, but he didn't; he hasn't been the same. His personality changed. He is more irritable. My father also diagnosed with conversion disorder. In 2012, I started having these episodes. She said in 2008, family lost her house to foreclosure and financial stress. Mother is disabled with back pain. Patient was home-schooled. She had 2 siblings, sister is 42 and brother is older than her sister. My sister is not in my life now. Sister's was angry often but now being . Patient response: Patient presented with the workbook. Didn't read chapter 1 and we used the session to discuss it. Still having seizures and depressed. She engages in online games but feel bullied. Patient also discussed that medications is changed to Cymbalta and she is still struggling with depression. Depression coping strategies were discussed. IMPRESSION: The patient with a history of seizure like episodes was diagnosed in the VEEG monitoring unit with nonepileptic seizures. The patient has PNES risk factors including past trauma of her mother's back pain/fully disabled throughout patient's life, father's health crisis (diagnosed as Conversion Disorder) when patient was 11 year-old, and her own health issues that followed a year later after her father's illness also diagnosed as conversion disorder. The family went through foreclosure and financial stress and 3 years later her father was diagnosed with conversion disorder. The patient chronically anxious about financial security. She was diagnosed with MDD and PTSD a year ago from her father's illness/financial loss and she is in treatment for it. She broke up with her girlfriend 3 weeks ago and she noted that she coped with the grief by distraction and playing games; watching movies; but also listening to sad music that makes her feel worse. We also discussed identifying unhelpful thoughts and replacing with beneficial thoughts. The patient has current MH providers. Mood is partially controlled on current regimen of medications and her psychiatrist plans to change her medications at next visit. MAXINE symptoms significantly interfere with patient's function and quality of life. The patient is interested to attend our 12 week NBT counseling here and progress is good. DIAGNOSIS (PROVISIONAL) 1. Functional Neurological Symptom Disorder 2. PTSD by history 3. 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 TREATMENT GOALS: Decrease seizure frequency Decrease symptoms of Anxiety/depression and other stress reactions Increase identification of emotions and emotional regulation Learn healthy tools for emotional release Set healthy boundaries with others Set healthy boundaries with self Increase tools related to communication Increase interest in activities/interest in life Increase healthy lifestyle routines (sleep, exercise, schedule) Develop mindfulness/meditation practice(s) Increase healthy choices with food Increase physical activity Explore and engage in activities that align with interests TREATMENT PLAN: Weekly sessions for treatment of Conversion Disorder with Seizure Attacks Time spent with patient: 30 minutes Coral Hernández, PhD Clinical [facility] documented in this encounter [facility] 09-07-2024 Note HNO ID: [id number] Author: CORAL HERNÁNDEZ, PhD Service: ? Author Type: Psychologist Type: Progress Notes Filed: 09/07/2024 10:44 Note Text: PSYCHOLOGY NOTE: Virtual visit This psychotherapy session was conducted virtually using [employer]. Consent related to virtual visit was provided verbally after information was read to patient. Current location: home Emergency contact: mother S/O: This is a 24 year-old patient with nonepileptic seizures/conversion disorder, chronic fatigue syndrome and living with her parents is in counseling for management of her symptoms. # of seizures per week: 08/25/2024 Last day of PNES episode: 0 Depression: 03/24 changing from fluoxetine to Cymbalta 20; sees outside therapist every 2 weeks Anxiety: 11/22 Function: video games, watch TV with parents and playing board games, trying to do more to get out of the house; on disability Hydroxyzine as needed; Gabapentin 400mg ; Cymbalta 20mg; Buspar 30mg bid, melatonin Semiology: staring, black out, and drop attacks CBT Workbook Taking Control of PNES Chapter 1 - Introduction of the treatment, role of patient and counseling, education on nonepileptic seizures, features of seizures. The patient reviewed the first chapter and discussed the types of seizures as well as their underlying triggers. Assignment was discussed on details of the process of therapy and engaging in the treatment. Understanding of the material appeared good; asked appropriate questions. Assignment included reading the next chapter, keeping a seizure log and a daily journal. MENTAL STATUS EXAM: The patient was alert, oriented. Eye contact was full on camera. Affect was blunted. Her judgment/insight was good. The patient admitted having depressed mood. SI/HI was denied. Childhood trauma: I stress out a lot about at home, my father stopped working, my father had a stroke- like symptoms July 2012, but he didn't; he hasn't been the same. His personality changed. He is more irritable. My father also diagnosed with conversion disorder. In 2012, I started having these episodes. She said in 2008, family lost her house to foreclosure and financial stress. Mother is disabled with back pain. Patient was home-schooled. She had 2 siblings, sister is 42 and brother is older than her sister. My sister is not in my life now. Sister's was angry often but now being . Patient response: Patient presented with the workbook. Didn't read chapter 1 and we used the session to discuss it. Still having seizures and depressed. She engages in online games but feel bullied. Patient also discussed that medications is changed to Cymbalta and she is still struggling with depression. Depression coping strategies were discussed. IMPRESSION: The patient with a history of seizure like episodes was diagnosed in the VEEG monitoring unit with nonepileptic seizures. The patient has PNES risk factors including past trauma of her mother's back pain/fully disabled throughout patient's life, father's health crisis (diagnosed as Conversion Disorder) when patient was 11 year-old, and her own health issues that followed a year later after her father's illness also diagnosed as conversion disorder. The family went through foreclosure and financial stress and 3 years later her father was diagnosed with conversion disorder. The patient chronically anxious about financial security. She was diagnosed with MDD and PTSD a year ago from her father's illness/financial loss and she is in treatment for it. She broke up with her girlfriend 3 weeks ago and she noted that she coped with the grief by distraction and playing games; watching movies; but also listening to sad music that makes her feel worse. We also discussed identifying unhelpful thoughts and replacing with beneficial thoughts. The patient has current MH providers. Mood is partially controlled on current regimen of medications and her psychiatrist plans to change her medications at next visit. MAXINE symptoms significantly interfere with patient's function and quality of life. The patient is interested to attend our 12 week NBT counseling here and prognosis appears to be moderate. DIAGNOSIS (PROVISIONAL) 1. Functional Neurological Symptom Disorder 2. PTSD by history 3. 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 TREATMENT GOALS: Decrease seizure frequency Decrease symptoms of Anxiety/depression and other stress reactions Increase identification of emotions and emotional regulation Learn healthy tools for emotional release Set healthy boundaries with others Set healthy boundaries with self Increase tools related to communication Increase interest in activities/interest in life Increase healthy lifestyle routines (sleep, exercise, schedule) Develop mindfulness/meditation practice(s) Increase healthy choices with food Increase physical activity Explore and engage in activities that align wit (more content not included)... [facility] 09-07-2024 History of Present illness Narrative PSYCHOLOGY NOTE: Virtual visit This psychotherapy session was conducted virtually using [employer]. Consent related to virtual visit was provided verbally after information was read to patient. Current location: home Emergency contact: mother S/O: This is a 24 year-old patient with nonepileptic seizures/conversion disorder, chronic fatigue syndrome and living with her parents is in counseling for management of her symptoms. # of seizures per week: 08/25/2024 Last day of PNES episode: 0 Depression: 03/24 changing from fluoxetine to Cymbalta 20; sees outside therapist every 2 weeks Anxiety: 11/22 Function: video games, watch TV with parents and playing board games, trying to do more to get out of the house; on disability Hydroxyzine as needed; Gabapentin 400mg ; Cymbalta 20mg; Buspar 30mg bid, melatonin Semiology: staring, black out, and drop attacks CBT Workbook Taking Control of PNES Chapter 1 - Introduction of the treatment, role of patient and counseling, education on nonepileptic seizures, features of seizures. The patient reviewed the first chapter and discussed the types of seizures as well as their underlying triggers. Assignment was discussed on details of the process of therapy and engaging in the treatment. Understanding of the material appeared good; asked appropriate questions. Assignment included reading the next chapter, keeping a seizure log and a daily journal. MENTAL STATUS EXAM: The patient was alert, oriented. Eye contact was full on camera. Affect was blunted. Her judgment/insight was good. The patient admitted having depressed mood. SI/HI was denied. Childhood trauma: I stress out a lot about at home, my father stopped working, my father had a stroke- like symptoms July 2012, but he didn't; he hasn't been the same. His personality changed. He is more irritable. My father also diagnosed with conversion disorder. In 2012, I started having these episodes. She said in 2008, family lost her house to foreclosure and financial stress. Mother is disabled with back pain. Patient was home-schooled. She had 2 siblings, sister is 42 and brother is older than her sister. My sister is not in my life now. Sister's was angry often but now being . Patient response: Patient presented with the workbook. Didn't read chapter 1 and we used the session to discuss it. Still having seizures and depressed. She engages in online games but feel bullied. Patient also discussed that medications is changed to Cymbalta and she is still struggling with depression. Depression coping strategies were discussed. IMPRESSION: The patient with a history of seizure like episodes was diagnosed in the VEEG monitoring unit with nonepileptic seizures. The patient has PNES risk factors including past trauma of her mother's back pain/fully disabled throughout patient's life, father's health crisis (diagnosed as Conversion Disorder) when patient was 11 year-old, and her own health issues that followed a year later after her father's illness also diagnosed as conversion disorder. The family went through foreclosure and financial stress and 3 years later her father was diagnosed with conversion disorder. The patient chronically anxious about financial security. She was diagnosed with MDD and PTSD a year ago from her father's illness/financial loss and she is in treatment for it. She broke up with her girlfriend 3 weeks ago and she noted that she coped with the grief by distraction and playing games; watching movies; but also listening to sad music that makes her feel worse. We also discussed identifying unhelpful thoughts and replacing with beneficial thoughts. The patient has current MH providers. Mood is partially controlled on current regimen of medications and her psychiatrist plans to change her medications at next visit. MAXINE symptoms significantly interfere with patient's function and quality of life. The patient is interested to attend our 12 week NBT counseling here and prognosis appears to be moderate. DIAGNOSIS (PROVISIONAL) 1. Functional Neurological Symptom Disorder 2. PTSD by history 3. 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 TREATMENT GOALS: Decrease seizure frequency Decrease symptoms of Anxiety/depression and other stress reactions Increase identification of emotions and emotional regulation Learn healthy tools for emotional release Set healthy boundaries with others Set healthy boundaries with self Increase tools related to communication Increase interest in activities/interest in life Increase healthy lifestyle routines (sleep, exercise, schedule) Develop mindfulness/meditation practice(s) Increase healthy choices with food Increase physical activity Explore and engage in activities that align with interests TREATMENT PLAN: Weekly sessions for treatment of Conversion Disorder with Seizure Attacks Time spent with patient: 30 minutes Coral Hernández, PhD Clinical Psychologist [facility] documented in this encounter [facility] 08-22-2024 Hospital Discharge instructions Patient Education 08/22/2024 01:51:08 Headache, Unspecified Headache, Unspecified A number of [...] face You have trouble talking or seeing [id number] [employer]. [address] [place] [address]. All rights reserved. This information is not intended as a substitute for professional medical care. Always follow your healthcare professional's instructions. Follow Up Care 08/21/2024 23:16:31 With:FANI BAEZ MD, Surgery Address: [address] [place] [id number]- When:2-4 days [facility] 08-22-2024 Emergency department Discharge summary Discharge Instructions Thank you for allowing [facility] to assist you with your healthcare needs. The following is important discharge information regarding your hospital visit. Diagnosis from Today's Visit Headache What to Do Next Instructions from Your Care Team No qualifying data available. Post Acute Orders No qualifying data available. You Need to Schedule the Following Appointments Follow Up with FANI BAEZ MD, Surgery When:Within 2-4 days Where:[address] [place] [address]- Allergies Dairy products Glutens azithromycin Medications Please ask your primary doctor [...] needed for as needed for spasm Unchanged dicyclomine (dicyclomine 10 mg oral capsule) 1 cap by mouth Four (4) times a day Duration: 5 Days Unchanged doxycycline (doxycycline hyclate 100 mg oral [...] Days as directed on package labeling Unchanged pantoprazole (pantoprazole 40 mg oral enteric coated tablet) Unchanged rimegepant (Nurtec ODT 75 mg oral tablet, disintegrating) Unchanged topiramate (Topamax 50 mg oral tablet) [...] face You have trouble talking or seeing 9543-2841 [employer]. [address] [place] [address]. All rights reserved. This information is not intended as a substitute for professional medical care. Always follow your healthcare professional's instructions. Additional Information VACCINATE! IT SAVES LIVES! Members of the community who have not yet received the COVID-19 vaccine and would like to receive it can visit one of [facility] vaccine clinics. There are many vaccine clinic locations within the [facility]. For locations and available times, please visit [email or web address] It is important to note that some COVID mobile vaccine clinics are held outdoors and may be canceled in rainy or stormy conditions. To learn more about pediatric vaccinations (ages 5-11), we invite you to visit the [facility] webpage. [email or web address] [email or web address]-Freque wrqv-Ecjav-Ztqufyiod.html To learn more about the COVID-19 vaccine, we invite you to visit the CDC website for a list of frequently asked questions. https://www.cdc.gov/coronavirus/2 019-ncov/vaccines/faq.html [facility] Patient Portal Access Instructions: Stay connected with your healthcare team and access your personal medical information anytime with the [facility] Patient Portal. If you would like a full copy of your medical records please contact the [facility] Medical Records Department Tuesday through Tuesday between 8a.m. and 4:30p.m. Please follow the directions below to access the portal: 1.Access the email account you provided upon registration to the [facility].2.Look for an invitation email from [facility].3.Open the email and access the invitation link: Accept Invitation to [facility]4.Fill in the required julian to create your account. Sign into [email or web address] with your username and password that you [...] you will allow to register on the [facility] Patient Portal for access to your information. You can also access the [facility] Patient Portal on the [employer] ifeanyi. Simply click on Health Records under Health Data and then click on the [facility] logo. HOW TO SAFELY DISPOSE OF PRESCRIPTION [...] Call your local pharmacy or go to http://Admaxim.Rewarder/[email or web address] to find one close to you.3.Make use of household items: Use cat litter or old coffee grounds to dispose medications if other options are not available. Mix your drugs with these household products, seal them in an airtight container and throw it into the garbage. Call [facility]: [phone] to be sure your drugs can be [...] been reviewed and explained to me and I,DONNIE MALDONADO M understand my current condition and have read and understand these discharge instructions. I have received a written copy of the plan/instructions. If I have questions, I am aware that I should contact my doctor. Patient/Tunnel Mucker Signature: Date/Time: Relationship to Patient: ____ Witness Name/Signature: Date/Time: [facility] 06-20-2024 Hospital Discharge instructions Patient Education 06/20/2024 00:16:04 Headache, Unspecified Headache, Unspecified A number of [...] face You have trouble talking or seeing [id number] [employer]. [address] [place] [address], [place] [address]. All rights reserved. This information is not intended as a substitute for professional medical care. Always follow your healthcare professional's instructions. Follow Up Care 06/19/2024 23:00:40 With:FANI BAEZ MD, Surgery Address: [address] [place] [address]- When:2-4 days [facility] 06-20-2024 Note Discharge Instructions Thank you for allowing [facility] to assist you with your healthcare needs. The following is important discharge information regarding your hospital visit. Diagnosis from Today's Visit Headache Vomiting What to Do Next Instructions from Your Care Team No qualifying data available. Post Acute Orders No qualifying data available. You Need to Schedule the Following Appointments Follow Up with FANI BAEZ MD, Surgery When:Within 2-4 days Where:[address] [place] [address]- Allergies Dairy products Glutens azithromycin Medications Please ask your primary doctor [...] needed for as needed for spasm Unchanged dicyclomine (dicyclomine 10 mg oral capsule) 1 cap by mouth Four (4) times a day Duration: 5 Days Unchanged doxycycline (doxycycline hyclate 100 mg oral [...] Days as directed on package labeling Unchanged pantoprazole (pantoprazole 40 mg oral enteric coated tablet) Unchanged rimegepant (Nurtec ODT 75 mg oral tablet, disintegrating) Unchanged topiramate (Topamax 50 mg oral tablet) [...] face You have trouble talking or seeing [id number] [employer]. [address] [place] [address], [place] [address]. All rights reserved. This information is not intended as a substitute for professional medical care. Always follow your healthcare professional's instructions. Additional Information VACCINATE! IT SAVES LIVES! Members of the community who have not yet received the COVID-19 vaccine and would like to receive it can visit one of [facility] vaccine clinics. There are many vaccine clinic locations within the [facility]. For locations and available times, please visit [email or web address] It is important to note that some COVID mobile vaccine clinics are held outdoors and may be canceled in rainy or stormy conditions. To learn more about pediatric vaccinations (ages 5-11), we invite you to visit the [facility] webpage. [email or web address]://www.[email or web address]/pa [email or web address]-[email or web address]-Freque bkqi-Zyatx-[email or web address].html To learn more about the COVID-19 vaccine, we invite you to visit the CDC website for a list of frequently asked questions. https://www.cdc.gov/coronavirus/2 019-ncov/vaccines/faq.html [facility] Patient Portal Access Instructions: Stay connected with your healthcare team and access your personal medical information anytime with the [facility] Patient Portal. If you would like a full copy of your medical records please contact the [facility] Medical Records Department Tuesday through Tuesday between 8a.m. and 4:30p.m. Please follow the directions below to access the portal: 1.Access the email account you provided upon registration to the hospital.2.Look for an invitation email from [facility].3.Open the email and access the invitation link: Accept Invitation to [facility]4.Fill in the required julian to create your account. Sign into [email or web address] with your username and password that you [...] you will allow to register on the [facility] Patient Portal for access to your information. You can also access the [facility] Patient Portal on the [employer] ifeanyi. Simply click on Health Records under Health Data and then click on the [facility] logo. HOW TO SAFELY DISPOSE OF PRESCRIPTION [...] Call your local pharmacy or go to http://Admaxim.Rewarder/[email or web address] to find one close to you.3.Make use of household items: Use cat litter or old coffee grounds to dispose medications if other options are not available. Mix your drugs with these household products, seal them in an airtight container and throw it into the garbage. Call [facility]: [phone] to be sure your drugs can be [...] been reviewed and explained to me and I,DONNIE MALDONADO M understand my current condition and have read and understand these discharge instructions. I have received a written copy of the plan/instructions. If I have questions, I am aware that I should contact my doctor. Patient/Tunnel Mucker Signature: Date/Time: Relationship to Patient: ____ Witness Name/Signature: Date/Time: [facility] 06-01-2024 Note HNO ID: [id number] Author: CORAL HERNÁNDEZ, PhD Service: ? Author Type: Psychologist Type: Progress Notes Filed: 06/01/2024 12:00 Note Text: [facility] INITIAL PSYCHOLOGY EVALUATION The patient was informed that this interview was only for the purpose of assessing the presenting problem, for diagnosis and treatment planning and/or to make treatment recommendations. The patient agreed that the evaluation would not be used for forensic, disability, or child custody purposes. The following history is obtained from the patient except when noted. The content acquired from chart review has been confirmed with the patient and discrepancies were noted if any. Limits of confidentiality were discussed. Date: 06/01/2024 Virtual visit. Current location: [place] Who to call in emergency: Discussed privacy risk in digital visits Consent related to virtual visits was provided verbally after information was read to the patient. Donnie Maldonado is a 24 year old disabled female who lives with her disabled parents and 3 dogs. Mother has chronic back pain and patient and her father have conversion disorder. REFERRING PHYSICIAN: Dr. Corey Oneil PRESENTING PROBLEM: PNES, to be evaluated for conversion disorder; mother in another room in the house. Tilt table test was negative for POTS. HPI - Nonepileptic episodes: Age of PNES Onset: 11 years ago Driving status: doesn't drive Assessment: 24yo RH woman with pmhx of chronic headaches, Generalized Anxiety Disorder, suicide attempt x2, somatoform disorder/psychogenic non-epileptic events (2016), Major Depressive Disorder, PTSD and concussion is admitted to the Epilepsy Monitoring Unit for diagnosis of events of unclear etiology. She was previously diagnosed with vasovagal syncope vs psychogenic non-epileptic events in 2016 and reports that episodes are similar but much more intense and frequent now. Current episodes occur near daily and triggered by stress, physical activity, video games and lights. She describes them as feeling out of it, dizzy, lightheaded, nauseated, very hot, diaphoretic with muffled hearing that can last hours followed by black out episodes or staring with unawareness. Patient states that she may also black out at times without prodromal symptoms. Her only clear epilepsy risk factor is FH of seizures in a maternal GM. Episodes have not been previously recorded with video-EEG. admitted with new osnet spells admitted for diagnostic VEEG Feels out of it, dizzy, light headed, nausea, hot, hearing is muffled (these can last for hours. This is followed by black out, staring and unresponsive. These were occurring most days. There is no convulsive movements. Topamax 100mg twice daily (for migraine) and Gabapentin 100mg in AM for anxiety and 300mg in PM (for anxiety/pain/insomnia) The day's recording was personally reviewed and the results are summarized below. VIDEO-EEG MONITORING DAILY REPORT: Interictal findings: normal Ictal findings: 1-4 (prodrome symptoms without loss of awareness) no eeg changes Event 5-6 - (feeling nausea, dizzy) - No EEG changes Comorbid Epilepsy diagnosis: No PNES History/Semiology: Current Medication Use: List (Antidepresssants, Benzodiazepines, Antipsychotic medications, Psychostimulants, Cannabinoid Oil or Medicinal Marijuana Use, Mood stabilizers) Hydroxyzine; Gabapentin 400mg ; Prozac 40mg; Buspar 30mg bid PREVIOUS MENTAL HEALTH TREATMENT: The patient has previously been diagnosed with depression and anxiety for years. Patient identifies a history of depression, anxiety, and somatoform disorder. She is established with psychiatry and psychotherapy through [facility], noting she sees her therapist every other week and her psychiatrist once per month. Patient informs of suicidal ideations in the past, last occurring in 2019. She informs she was hospitalized at this time along with two additional incidents prior. Patient denies current suicidal ideations or history of ideations since 2019. I stress out a lot about at home, my father stopped working, my father had a stroke- like symptoms July 2012, but he didn't; he hasn't been the same. His personality changed. He is more irritable. My father also diagnosed with conversion disorder. In 2012, I started having these episodes. She said in 2008, family lost her house to foreclosure and financial stress. Mother is disabled with back pain. Patient was home-schooled. She had 2 siblings, sister is 42 and brother is older than her sister. My sister is not in my life now. Sister's was angry often but now being . Current therapist: yes. Pt stated that seeing her every 2 weeks is good enough Current psychiatrist: yes Previous medication or psychotherapy for mental health issues:ye (more content not included)... [facility] 06-01[facility]24 History of Present illness Narrative [facility] INITIAL PSYCHOLOGY EVALUATION The patient was informed that this interview was only for the purpose of assessing the presenting problem, for diagnosis and treatment planning and/or to make treatment recommendations. The patient agreed that the evaluation would not be used for forensic, disability, or child custody purposes. The following history is obtained from the patient except when noted. The content acquired from chart review has been confirmed with the patient and discrepancies were noted if any. Limits of confidentiality were discussed. Date: 06/01/2024 Virtual visit. Current location: [place] Who to call in emergency: Discussed privacy risk in digital visits Consent related to virtual visits was provided verbally after information was read to the patient. Donnie Maldonado is a 24 year old disabled female who lives with her disabled parents and 3 dogs. Mother has chronic back pain and patient and her father have conversion disorder. REFERRING PHYSICIAN: Dr. Corey Oneil PRESENTING PROBLEM: PNES, to be evaluated for conversion disorder; mother in another room in the house. Tilt table test was negative for POTS. HPI - Nonepileptic episodes: Age of PNES Onset: 11 years ago Driving status: doesn't drive Assessment: 24yo RH woman with pmhx of chronic headaches, Generalized Anxiety Disorder, suicide attempt x2, somatoform disorder/psychogenic non-epileptic events (2016), Major Depressive Disorder, PTSD and concussion is admitted to the Epilepsy Monitoring Unit for diagnosis of events of unclear etiology. She was previously diagnosed with vasovagal syncope vs psychogenic non-epileptic events in 2016 and reports that episodes are similar but much more intense and frequent now. Current episodes occur near daily and triggered by stress, physical activity, video games and lights. She describes them as feeling out of it, dizzy, lightheaded, nauseated, very hot, diaphoretic with muffled hearing that can last hours followed by black out episodes or staring with unawareness. Patient states that she may also black out at times without prodromal symptoms. Her only clear epilepsy risk factor is FH of seizures in a maternal GM. Episodes have not been previously recorded with video-EEG. admitted with new osnet spells admitted for diagnostic VEEG Feels out of it, dizzy, light headed, nausea, hot, hearing is muffled (these can last for hours. This is followed by black out, staring and unresponsive. These were occurring most days. There is no convulsive movements. Topamax 100mg twice daily (for migraine) and Gabapentin 100mg in AM for anxiety and 300mg in PM (for anxiety/pain/insomnia) The day's recording was personally reviewed and the results are summarized below. VIDEO-EEG MONITORING DAILY REPORT: Interictal findings: normal Ictal findings: 1-4 (prodrome symptoms without loss of awareness) no eeg changes Event 5-6 - (feeling nausea, dizzy) - No EEG changes Comorbid Epilepsy diagnosis: No PNES History/Semiology: Current Medication Use: List (Antidepresssants, Benzodiazepines, Antipsychotic medications, Psychostimulants, Cannabinoid Oil or Medicinal Marijuana Use, Mood stabilizers) Hydroxyzine; Gabapentin 400mg ; Prozac 40mg; Buspar 30mg bid PREVIOUS MENTAL HEALTH TREATMENT: The patient has previously been diagnosed with depression and anxiety for years. Patient identifies a history of depression, anxiety, and somatoform disorder. She is established with psychiatry and psychotherapy through [facility] [place], noting she sees her therapist every other week and her psychiatrist once per month. Patient informs of suicidal ideations in the past, last occurring in 2019. She informs she was hospitalized at this time along with two additional incidents prior. Patient denies current suicidal ideations or history of ideations since 2019. I stress out a lot about at home, my father stopped working, my father had a stroke- like symptoms July 2012, but he didn't; he hasn't been the same. His personality changed. He is more irritable. My father also diagnosed with conversion disorder. In 2012, I started having these episodes. She said in 2008, family lost her house to foreclosure and financial stress. Mother is disabled with back pain. Patient was home-schooled. She had 2 siblings, sister is 42 and brother is older than her sister. My sister is not in my life now. Sister's was angry often but now being . Current therapist: yes. Pt stated that seeing her every 2 weeks is good enough Current psychiatrist: yes Previous medication or psychotherapy for mental health issues:yes Previous Inpatient Psychiatric Admission for MH: yes CURRENT SYMPTOMS: Persistent Depressed mood or hopelessness: yes. I feel discouraged about everything going on. She attributes her difficulties with depression and anxiety to her health difficulties and the impact they have on her ability to function on a day to day basis. Patient indicates she has lower energy and motivation, finding that she is sleeping for 12+ hours per day secondary to her health concerns. She denies difficulties or changes in appetite. Sleep:difficulty staying asleep Interest:diminished Guilt or worthlessness: a bit Energy: low Concentration: good Appetite: good Psychomotor Activity: psychomotor activity was WNL. Memory: Good Anxiety: high; I tend to over-thinking a lot Panic attacks: situational Bipolar Disorder: denies Trauma: Denies except foreclosure of a family home; cyber bullying on twitter, discord PTSD sx: denies Psychosis: denies Self mutilation: Denies Suicidal/Homicidal ideation: None Personality disorder SUICIDE RISK ASSESSMENT: Suicide attempts: The patient admits to 1 suicide attempt, overdosed on medication Risk factors:Previous suicide attempt(s) and History of mental disorder Protective factors: Strong support system, Skills in problem solving, My parents are very supportive SUBSTANCE USE: Denies DEVELOPMENTAL HISTORY: Patient is a high school graduate and informs she was home schooled for the entirety of her education. She reports having completed some college education, but was unable to finish her degree secondary to her health difficulties. She was studying Information Technology and computer programming. Patient is not working and notes she has not been able to work at any point in her life. She reports receiving social security benefits secondary to depression, anxiety, and somatoform disorder. SERVICE: denies PREVIOUS OR CURRENT LEGAL ISSUES: Denies Finances Denies MARITAL HISTORY PREVIOUS/CURRENT RELATIONSHIPS: The patient currently is in a romantic relationship with her roommate Justin. She is bisexual. HINDU/SPIRITUALITY: Spiritual but not lutheran MED/SURG Hx: PAST MEDICAL HISTORY Diagnosis Date Achilles bursitis or tendinitis 06/16/2009 Concussion 04/21/2015 Depression 04/2009, 04/2015 The depression 04/2015 was [...] plates removed TONSILLECTOMY & ADENOIDECTOMY <AGE 10 MENTAL STATUS: A. General appearance: alert and oriented, good hygiene and casual dressing B. Behavior: unremarkable, engaged and disclosing C. Movements: wnl D. Attitude toward examiner: open and disclosing E. Eye contact: good F. Speech: normal content, process G. Language: normal H. Mood: depressed emotionally drained, physically under the weather and I have a headache I. Affect: constricted J. Perceptions: no hallucinations, delusions currently K. Thought: linear L. Cognition: Intact N. Judgment: good O. Insight: good IMPRESSION: The patient with a history of seizure like episodes was diagnosed in the VEEG monitoring unit with nonepileptic seizures. The patient has PNES risk factors including past trauma of her mother's back pain/fully disabled throughout patient's life, father's health crisis (diagnosed as Conversion Disorder) when patient was 11 year-old, and her own health issues that followed a year later after her father's illness also diagnosed as conversion disorder. The family went through foreclosure and financial stress and 3 years later her father was diagnosed with conversion disorder. The patient chronically anxious about financial security. She was diagnosed with MDD and PTSD a year ago from her father's illness/financial loss and she is in treatment for it. The patient has current MH providers. Mood is partially controlled on current regimen of medications and her psychiatrist plans to change her medications at next visit. MAXINE symptoms significantly interfere with patient's function and quality of life. The patient is interested to attend our 12 week NBT counseling here and prognosis appears to be moderate. DIAGNOSIS (PROVISIONAL) 1. Functional Neurological Symptom Disorder 2. PTSD by history 3. 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 Recommendation: 1. Participation in the Non-Epileptic Seizures Neurobehavioral Therapy program was discussed with the patient and patient agreed to participate 2. Patient was asked to buy the Nonepileptic seizure treatment workbook Treatment goals: Decrease in seizures, improved mood, improved function/improved quality of life, improved relationships and adaptive coping skills. Time spent with patient: 60 minutes Coral Hernández, PhD Clinical Psychologist [facility] documented in this encounter [facility] 05-02-2024 Note HNO ID: [id number] Author: COREY ONEIL MD Service: Neurology Adult Epilepsy Author Type: Physician Type: Progress Notes Filed: 05/02/2024 12:17 Note Text: NEUROLOGY EPILEPSY MONITORING UNIT (EMU) PROGRESS NOTE SERVICE DATE: 05/02/2024 SERVICE TIME: 12:16 PM Subjective No seizures overnight. New Problems Since Admission: None Home Anti-Epileptic Drugs: Topiramate 100 mg twice daily (for migraines) Gabapentin 100 mg AM and 300 mg PM(for anxiety, insomnia) Anti Epileptic Drugs Here: None Objective 05/02/24 0726 05/02/24 0728 05/02/24 0729 05/02/24 1110 BP: 121/59 115/64 121/72 125/65 Pulse: 70 64 77 84 Resp: Temp: 36.8 ?C (98.2 ?F) 37.1 ?C (98.8 ?F) TempSrc: Oral Oral SpO2: 100% 100% 99% 100% Weight: Height: EKG, Telemetry, EEG, Monitors AND Alarms are on: Yes Written order: Remains standing. Seizure Detection Software on: Yes motorcycle mechanic has been Notified: Yes channel marketing coordinator has been Notified: Yes EXAM: Mental Status: Alert and oriented to person, place and time. Able to follow 1 and 2 step commands. Motor: Moves all extremities equally. Exam otherwise unchanged. DATA: Diagnostic tests reviewed for today's visit: Most recent labs and imaging results. Assessment Active Hospital Problems Seizure-like activity (HCC) (POA: Yes) Obesity, Class III, BMI >= 40 (POA: Status not on file) Assessment: 24yo RH woman with pmhx of chronic headaches, Generalized Anxiety Disorder, suicide attempt x2, somatoform disorder/psychogenic non-epileptic events (2016), Major Depressive Disorder and concussion is admitted to the Epilepsy Monitoring Unit for diagnosis of events of unclear etiology. She was previously diagnosed with vasovagal syncope vs psychogenic non-epileptic events in 2016 and reports that episodes are similar but much more intense and frequent now. Current episodes occur near daily and triggered by physical activity, video games and lights. She describes them as feeling out of it, dizzy, lightheaded, nauseated, very hot, diaphoretic with muffled hearing that can last hours followed by black out episodes or staring with unawareness. Patient states that she may also black out at times without prodromal symptoms. Her only clear epilepsy risk factor is FH of seizures in a maternal GM. Episodes have not been previously recorded with video-EEG. PLAN: - Continuous VEEG for seizure monitoring - ASM plan: Topiramate 100 mg twice daily (for migraines) held on admission Gabapentin 100 mg AM and 300 mg PM(for anxiety, insomnia) held on admission - Seizure rescue plan: Ativan 2 mg IV for seizure >3 minutes or 3 or more seizures in 8 hours (if NO IV access give Midazolam 5 mg intramuscular) - Seizure and fall precautions - Neurochecks and vitals Q4H - Continuous telemetry and pulse ox monitoring - Admission labs reviewed, mild hypokalemia, replacement and repeat labs ordered - Orthostatics daily - DVT ppx: ICPs bilaterally, Lovenox 40 mg subcutaneously every 24 hours Plan of care discussed with Provider, RN, Patient . SIGNATURE: Javon Crouch PA-C PATIENT NAME: Donnie Maldonado DATE: May 02, 2024 TIME: 9:14 AM EPILEPSY CENTER STAFF NOTE [facility] STAFF PHYSICIAN NOTE OF PERSONAL INVOLVEMENT IN CARE I have reviewed the history and physical examination obtained and documented by the nurse practitioner and I personally participated in the conte components. I have discussed the case and management of the patient's care. The following comments revise or confirm relevant conte components of the note. IMPRESSION: This is a 24 year old year old admitted with new osnet spells admitted for diagnostic VEEG Feels out of it, dizzy, light headed, nausea, hot, hearing is muffled (these can last for hours. This is followed by black out, staring and unresponsive. These were occurring most days. There is no convulsive movements. Nauseas/headches/unresponsiveness staring spells Topamax 100mg twice daily (for migraine) and Gabapentin 100mg in AM and 300mg in PM (for anxiety/pain/insomnia) The day's recording was personally reviewed and the results are summarized below. VIDEO-EEG MONITORING DAILY REPORT: Interictal findings: normal Ictal findings: 1-4 (prodrome symptoms without loss of awareness) no eeg changes Event 5-6 - (feeling nausea, dizzy) - No EEG changes PLAN: veeg Holding ASM seizure precaution Need to record events with loss of awareness. Discharge tomorrow Corey Oneil MD [facility] 05-01-2024 Note HNO ID: [id number] Author: COREY ONEIL MD Service: Neurology Adult Epilepsy Author Type: Physician Type: Progress Notes Filed: 05/01/2024 10:27 Note Text: NEUROLOGY EPILEPSY MONITORING UNIT (EMU) PROGRESS NOTE SERVICE DATE: 05/01/2024 SERVICE TIME: 9:10 AM Subjective No complaints. No seizures overnight. New Problems Since Admission: None Home Anti-Epileptic Drugs: Topiramate 100 mg twice daily (for migraines) Gabapentin 100 mg AM and 300 mg PM(for anxiety, insomnia) Anti Epileptic Drugs Here: None Objective 05/01/24 0426 05/01/24 0712 05/01/24 0717 05/01/2418 BP: 114/57 109/53 128/68 131/71 Pulse: 72 77 80 85 Resp: 16 16 Temp: 36.6 ?C (97.9 ?F) 36.5 ?C (97.7 ?F) TempSrc: Oral Oral SpO2: 98% 98% 98% 98% Weight: 125.2 kg (276 lb 0.3 oz) Height: EKG, Telemetry, EEG, Monitors AND Alarms are on: Yes Written order: Remains standing. Seizure Detection Software on: Yes motorcycle mechanic has been Notified: Yes channel marketing coordinator has been Notified: Yes EXAM: Mental Status: Alert and oriented to person, place and time. Able to follow 1 and 2 step commands. Motor: Moves all extremities equally. Exam otherwise unchanged. DATA: Diagnostic tests reviewed for today's visit: Most recent labs and imaging results. Assessment Active Hospital Problems Seizure-like activity (HCC) (POA: Yes) Obesity, Class III, BMI >= 40 (POA: Status not on file) Assessment:24yo RH woman with pmhx of chronic headaches, Generalized Anxiety Disorder, suicide attempt x2, somatoform disorder/psychogenic non-epileptic events (2016), Major Depressive Disorder and concussion is admitted to the Epilepsy Monitoring Unit for diagnosis of events of unclear etiology. She was previously diagnosed with vasovagal syncope vs psychogenic non-epileptic events in 2016 and reports that episodes are similar but much more intense and frequent now. Current episodes occur near daily and triggered by physical activity, video games and lights. She describes them as feeling out of it, dizzy, lightheaded, nauseated, very hot, diaphoretic with muffled hearing that can last hours followed by black out episodes or staring with unawareness. Patient states that she may also black out at times without prodromal symptoms. Her only clear epilepsy risk factor is FH of seizures in a maternal GM. Episodes have not been previously recorded with video-EEG. PLAN: - Continuous VEEG for seizure monitoring - ASM plan: Topiramate 100 mg twice daily (for migraines) held on admission Gabapentin 100 mg AM and 300 mg PM(for anxiety, insomnia) held on admission - Seizure rescue plan: Ativan 2 mg IV for seizure >3 minutes or 3 or more seizures in 8 hours (if NO IV access give Midazolam 5 mg intramuscular) - Seizure and fall precautions - Neurochecks and vitals Q4H - Continuous telemetry and pulse ox monitoring - Admission labs reviewed, mild hypokalemia, replacement and repeat labs ordered - Orthostatics daily - DVT ppx: ICPs bilaterally, Lovenox 40 mg subcutaneously every 24 hours Plan of care discussed with Provider, RN, Patient . SIGNATURE: Javon Crouch PA-C PATIENT NAME: Donnie Maldonado DATE: May 01, 2024 TIME: 8:48 AM EPILEPSY CENTER STAFF NOTE [facility] STAFF PHYSICIAN NOTE OF PERSONAL INVOLVEMENT IN CARE I have reviewed the history and physical examination obtained and documented by the nurse practitioner and I personally participated in the conte components. I have discussed the case and management of the patient's care. The following comments revise or confirm relevant conte components of the note. IMPRESSION: This is a 24 year old year old admitted with new osnet spells admitted for diagnostic VEEG Feels out of it, dizzy, light headed, nausea, hot, hearing is muffled (these can last for hours. This is followed by black out, staring and unresponsive. These were occurring most days. There is no convulsive movements. Nauseas/headches/unresponsiveness staring spells Topamax 100mg twice daily (for migraine) and Gabapentin 100mg in AM and 300mg in PM (for anxiety/pain/insomnia) The day's recording was personally reviewed and the results are summarized below. VIDEO-EEG MONITORING DAILY REPORT: Interictal findings: normal Ictal findings: 1-4 (prodrome symptoms without loss of awareness) no eeg changes Event 5 - (feeling nausea, dizzy) - No EEG changes PLAN: veeg Holding ASM seizure precaution Need to record events with loss of awareness. Corey Oneil MD [facility] 04-30-2024 Note HNO ID: [id number] Author: CRISTEL PABLO MD Service: Neurology Adult Epilepsy Author Type: Physician Type: Progress Notes Filed: 04/30/2024 11:33 Note Text: NEUROLOGY EPILEPSY MONITORING UNIT (EMU) PROGRESS NOTE SERVICE DATE: 04/30/2024 SERVICE TIME: 8:45 AM Subjective 4E on 04/29 - described as nausea, dizziness and sweating New Problems Since Admission: None Home Anti-Epileptic Drugs: Topiramate 100 mg twice daily (for migraines) Gabapentin 100 mg AM and 300 mg PM(for anxiety, insomnia) Anti Epileptic Drugs Here: None Objective 04/29/24 1927 04/29/24 2354 04/30/24 0427 04/30/24 0716 BP: 119/57 120/69 114/54 Pulse: 83 79 71 Resp: Temp: 36.4 ?C (97.6 ?F) 36.6 ?C (97.8 ?F) 37.1 ?C (98.7 ?F) 36.7 ?C (98.1 ?F) TempSrc: Oral Oral Oral Oral SpO2: 94% 94% 94% Weight: Height: EKG, Telemetry, EEG, Monitors AND Alarms are on: Yes Written order: Remains standing. Seizure Detection Software on: Yes motorcycle mechanic has been Notified: Yes channel marketing coordinator has been Notified: Yes EXAM: Mental Status: Alert and oriented to person, place and time. Able to follow 1 and 2 step commands. Cranial Nerves: Pupils equal and reactive to light, extraocular muscles intact. No nystagmus, face symmetric. Motor: Moves all extremities equally. Coordination: No dysmetria DATA: Diagnostic tests reviewed for today's visit: Most recent labs and imaging results. Assessment Active Hospital Problems Seizure-like activity (HCC) (POA: Yes) Obesity, Class III, BMI >= 40 (POA: Status not on file) Assessment: 24yo RH woman with pmhx of chronic headaches, Generalized Anxiety Disorder, suicide attempt x2, somatoform disorder/psychogenic non-epileptic events (2016), Major Depressive Disorder and concussion is admitted to the Epilepsy Monitoring Unit for diagnosis of events of unclear etiology. She was previously diagnosed with vasovagal syncope vs psychogenic non-epileptic events in 2016 and reports that episodes are similar but much more intense and frequent now. Current episodes occur near daily and triggered by physical activity, video games and lights. She describes them as feeling out of it, dizzy, lightheaded, nauseated, very hot, diaphoretic with muffled hearing that can last hours followed by black out episodes or staring with unawareness. Patient states that she may also black out at times without prodromal symptoms. Her only clear epilepsy risk factor is FH of seizures in a maternal GM. Episodes have not been previously recorded with video-EEG. PLAN: - Continuous VEEG for seizure monitoring - ASM plan: Topiramate 100 mg twice daily (for migraines) held on admission Gabapentin 100 mg AM and 300 mg PM(for anxiety, insomnia) held on admission - Seizure rescue plan: Ativan 2 mg IV for seizure >3 minutes or 3 or more seizures in 8 hours (if NO IV access give Midazolam 5 mg intramuscular) - Seizure and fall precautions - Neurochecks and vitals Q4H - Continuous telemetry and pulse ox monitoring - Admission labs reviewed, mild hypokalemia, replacement and repeat labs ordered - Orthostatics daily - DVT ppx: ICPs bilaterally, Lovenox 40 mg subcutaneously every 24 hours Plan of care discussed with Provider, RN, Patient . SIGNATURE: Javon Crouch PA-C PATIENT NAME: Donnie Maldonado DATE: April 30, 2024 TIME: 8:16 AM EPILEPSY CENTER STAFF NOTE [facility] STAFF PHYSICIAN NOTE OF PERSONAL INVOLVEMENT IN CARE I have reviewed the history and physical examination obtained and documented by the nurse practitioner and I personally participated in the conte components. I have discussed the case and management of the patient's care. The following comments revise or confirm relevant conte components of the note. IMPRESSION: This is a 24 year old year old admitted with new osnet spells admitted for diagnostic VEEG Nauseas/headches/unresponsiveness staring spells The day's recording was personally reviewed and the results are summarized below. VIDEO-EEG MONITORING DAILY REPORT: Interictal findings: normal Ictal findings: 1-4 (type 1) no eeg changes PLAN: veeg On no ASM seiuzre precaution Need to capture staring spells Cristel Montero M.D [facility] 04-29-2024 Note HNO ID: [id number] Author: CRISTEL PABLO MD Service: Neurology Adult Epilepsy Author Type: Physician Type: Progress Notes Filed: 04/30/2024 09:12 Note Text: NEUROLOGY EPILEPSY MONITORING UNIT (EMU) PROGRESS NOTE SERVICE DATE: 04/29/2024 SERVICE TIME: 9:06 AM Subjective During photic patient had 1E on 04/28 @1333 described as feeling nauseated with left sided headache. configuration technician also reports patient had stiffening. New Problems Since Admission: Mild hypokalemia, 3.2 Home Anti-Epileptic Drugs: Topiramate 100 mg twice daily (for migraines) Gabapentin 100 mg AM and 300 mg PM(for anxiety, insomnia) Anti Epileptic Drugs Here: None Objective 04/28/24200904/28/24 2328 04/29/24 0350 04/29/24 0803 BP: 103/60 113/59 116/67 133/79 Pulse: 83 66 70 71 Resp: 17 17 16 Temp: 37.2 ?C (99 ?F) 36.8 ?C (98.2 ?F) 36.7 ?C (98.1 ?F) 36.9 ?C (98.4 ?F) TempSrc: Oral Oral Oral Oral SpO2: 95% 99% 99% 100% Weight: 125.4 kg (276 lb 7.3 oz) Height: EKG, Telemetry, EEG, Monitors AND Alarms are on: Yes Written order: Remains standing. Seizure Detection Software on: Yes motorcycle mechanic has been Notified: Yes channel marketing coordinator has been Notified: Yes EXAM: Mental Status: Alert and oriented to person, place and time. Able to follow 1 and 2 step commands. Cranial Nerves: Pupils equal and reactive to light, extraocular muscles intact. No nystagmus, face symmetric. Motor: Moves all extremities equally. Sensation: Intact to light touch. Coordination: No dysmetria DATA: Diagnostic tests reviewed for today's visit: Latest Ref Rng 04/28/2024 WBC 3.70 - 11.00 k/uL 8.72 RBC 3.90 - 5.20 m/uL 3.96 Hemoglobin 11.5 - 15.5 g/dL 12.3 Hematocrit 36.0 - 46.0 % 35.4 (L) MCV 80.0 - 100.0 fL 89.4 MCH 26.0 - 34.0 pg 31.1 MCHC 30.5 - 36.0 g/dL 34.7 RDW-CV 11.5 - 15.0 % 13.1 Platelet Count 150 - 400 k/uL 344 MPV 9.0 - 12.7 fL 7.8 (L) Neut% % 55.5 Abs Neut (ANC) 1.45 - 7.50 k/uL 4.85 Lymph% % 35.3 Abs Lymph 1.00 - 4.00 k/uL 3.08 Armstrong% % 3.7 Abs Armstrong <0.87 k/uL 0.32 Eosin% % 4.4 Abs Eosin <0.46 k/uL 0.38 Baso% % 0.5 Abs Baso <0.11 k/uL 0.04 Immature Gran % % 0.6 IMMATURE GRANS (ABS) <0.10 k/uL 0.05 NRBC /100 WBC 0.0 Absolute nRBC <0.01 k/uL <0.01 DTYPE Auto Protein, Total 6.3 - 8.0 g/dL 5.9 (L) Albumin 3.9 - 4.9 g/dL 3.5 (L) Calcium 8.5 - 10.2 mg/dL 8.2 (L) Bilirubin, Total 0.2 - 1.3 mg/dL 0.2 Alkaline Phosphatase 34 - 123 U/L 81 AST 13 - 35 U/L 11 (L) ALT 7 - 38 U/L 14 Glucose 74 - 99 mg/dL 126 (H) BUN 7 - 21 mg/dL 8 Creatinine 0.58 - 0.96 mg/dL 0.50 (L) Sodium 136 - 144 mmol/L 139 Potassium 3.7 - 5.1 mmol/L 3.2 (L) Chloride 98 - 107 mmol/L 108 (H) CO2 22 - 30 mmol/L 17 (L) Anion Gap 8 - 15 mmol/L 14 eGFR >=60 mL/min/1.73m? 133 Phencyclidine Negative Negative Benzodiazepines Urine Negative Negative Cocaine Urine Negative Negative Amphetamines Negative Negative Cannabinoids, Urine Negative Negative Opiates Negative Negative Barbiturates Negative Negative Ethanol, Urine <11 mg/dL <11 Oxycodone, Urine Negative Negative PT Sec 9.7 - 13.0 sec 10.6 PT INR 0.9 - 1.3 1.0 Magnesium 1.7 - 2.3 mg/dL 1.8 Phosphorus 2.7 - 4.8 mg/dL 2.5 (L) APTT 23.0 - 32.4 sec 28.8 TSH 0.270 - 4.200 mIU/L 1.700 HCG Qualitative, Urine Negative Negative ACTIVE PROBLEM LIST Equinus Deformity of Foot, Acquired Achilles Bursitis Or Tendinitis Headache Syncope Social Phobia Generalized Anxiety Disorder Sob (Shortness of Breath) On Exertion Obesity Somatoform Disorder Depression Concussion Vasovagal Episode Seizure-Like Activity (Hcc) Obesity, Class III, BMI >= 40 Assessment: 24yo RH woman with pmhx of chronic headaches, Generalized Anxiety Disorder, suicide attempt x2, somatoform disorder/psychogenic non-epileptic events (2016), Major Depressive Disorder and concussion is admitted to the Epilepsy Monitoring Unit for diagnosis of events of unclear etiology. She was previously diagnosed with vasovagal syncope vs psychogenic non-epileptic events in 2016 and reports that episodes are similar but much more intense and frequent now. Current episodes occur near daily and triggered by physical activity, video games and lights. She describes them as feeling out of it, dizzy, lightheaded, nauseated, very hot, diaphoretic with muffled hearing that can last hours followed by black out episodes or staring with unawareness. Patient states that she may also black out at times without prodromal symptoms. Her only clear epilepsy risk factor is FH of seizures in a maternal GM. Episodes have not been previously recorded with video-EEG. PLAN: - Continuous VEEG for seizure monitoring - ASM plan: Topiramate 100 mg twice daily (for migraines) held on admission Gabapentin 100 mg AM and 300 mg PM(for anxiety, insomnia) held on admission - Seizure rescue plan: Ativan 2 mg IV for seizure >3 minutes or 3 or more seizures in 8 hours (if NO IV access (more content not included)... [facility] 04-09-2024 Note HNO ID: [id number] Author: EDWIN LOCK MD Service: ? Author Type: Physician Type: Progress Notes Filed: 04/09/2024 13:50 Note Text: [facility] EPILEPSY CLINIC NOTE - INITIAL VISIT CHIEF COMPLAINT: seizures, here for further evaluation and treatment. They are self-referred. She is here with parents. Current neurologist: Dr. Rios at [facility] in [place] who treats her for migraine PRESENT ILLNESS This is a 24-year-old right-handed woman who presents with a chief complaint of seizures. The history of episodes began 08/2012 (at 12 years of age), per her mother. Per review of EMR, she has a h/o headaches since at least 2004. They worsened in [address] Fabiano Mckinney 08/05/2009. Headaches improved in 2009 but recurred in 2011 when her father developed health problems. She also started to have syncopal episodes in 2011. Dr. Wilhelm noted a recurrent episode of syncope 08/2012. 24-hour Holter was normal. There were five syncopal episodes from 08/2012 to 11/2013, all while standing, with narrowing of vision and ringing in her ears before LOC, suggestive of vasovagal syncope. Per patient, initial episodes were characterized by everything going black and hearing goes, like someone's covering her ears. Symptoms last about 10 seconds before she loses consciousness. She often falls and injures herself. In 2012, they were happening every [address] Ramirez and someone at [facility]. She had 24-hour EEG in the hospital; no episodes were recorded. 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 They do not remember hearing an explanation of MAXINE. Episodes went away for several years, for no clear reason. Episodes recurred in 2023; patient thinks 10/2023. They are now happening 2x/week. Often, feels out of it dizzy, lightheaded, lasting hours before the episode. Even walking, feels dizzy, lightheaded and shortness of breath. She has been riding a mobility scooter in the last 2 months. They have seen PCP for episodes but have not mentioned SOB while walking. But even just sitting on sofa, she can start sweating hours before and episode. TYPICAL EPISODES: 1) Falling episodes Description: Patient experiences everything going black and losing hearing for about 10 seconds, and then loses consciousness, often finding herself on the floor. Witnesses: they often just hear her fall; when they have been in the same room, they see her staring, then she falls limp, motionless for about one minute, then gets up, then listless for the rest of the day. Duration: 1-2 minutes Frequency: 2/week 2) Staring episodes No aura. Parent report staring, with delayed responses but she does typically respond to them. Duration: 1-2 minutes Frequency: at least weekly Triggers: flashing lights, video games and early development: FT , delivered via due to breech presentation (mother was on bedrest since early , due to bleeding); normal early development RISK FACTORS FOR SEIZURES 1. Head Trauma (Yes, concussions but none before episodes started); 2. CONSERVATION SCIENCE OFFICER Infections (No); 3. Family History of Seizures (Yes, maternal GM had seizures starting in her 40's and father has undiagnosed episodes, possible neurosarcoid); 4. Developmental Delay (No); 5. Febrile Seizures (No); 6. CONSERVATION SCIENCE OFFICER Tumors (No); 7. CONSERVATION SCIENCE OFFICER Vascular Disease (No); 8. Significant Medical History (depression, anxiety, migraine). CURRENT MEDICATION Current Outpatient Medications Medication Sig - gabapentin (NEURONTIN) 100 mg capsule - levonorgestrel-ethinyl estradiol (JOLESSA) 0.15 mg-30 mcg (91) per tab, 3 month pack Take 1 tablet by mouth once daily. - FLUoxetine (PROZAC) 10 mg capsule Take 10 mg by mouth once daily. - pantoprazole DR (PROTONIX) 40 mg tablet Take 1 tablet by mouth once daily. - hydrOXYzine pamoate (VISTARIL) 25 mg capsule Take 1 capsule by mouth twice daily as needed. - FLUoxetine (PROZAC) 40 mg capsule Take 1 capsule by mouth once daily. - busPIRone HCl 30 mg tablet Take 1 tablet by mouth twice daily. - NURTEC ODT 75 mg disintegrating tablet Take 1 tablet by mouth every 48 hours as needed. - cholecalciferol (VITAMIN D-3) 5,000 unit tab Take 1 tablet by mouth once daily. - ondansetron orally disintegrating (ZOFRAN ODT) 4 mg disintegrating tablet dissolve 1 tablet ON TONGUE every 4 hours if needed for nausea and vomiting - gabapentin (NEURONTIN) 300 mg capsule Take 300 mg by mouth daily at bedtime. - topiramate (TOPAMAX) 100 mg tablet Take 100 mg by mouth two times a day. - levonorgestrel-ethinyl estradiol 0.15 mg-30 mcg (91) per tab, 3 month pack Take 1 tablet by mouth as directed. - sucralfate (CARAFATE) 100 mg/mL suspension TAKE 10 ML (CC) BY MOUTH TWICE DAILY ON AN EMPTY STOMACH 1 HOUR BEFORE MEALS No current facility-administered medications for this visit. Jolessa OCP Nurtec (more content not included)... [facility] 04-09-2024 History of Present illness Narrative [facility] EPILEPSY CLINIC NOTE - INITIAL VISIT CHIEF COMPLAINT: seizures, here for further evaluation and treatment. They are self-referred. She is here with parents. Current neurologist: Dr. Rios at [facility] in [place] who treats her for migraine PRESENT ILLNESS This is a 24-year-old right-handed woman who presents with a chief complaint of seizures. The history of episodes began 08/2012 (at 12 years of age), per her mother. Per review of EMR, she has a h/o headaches since at least 2004. They worsened in [address] Fabiano Mckinney 08/05/2009. Headaches improved in 2009 but recurred in 2011 when her father developed health problems. She also started to have syncopal episodes in 2011. Dr. Wilhelm noted a recurrent episode of syncope 08/2012. 24-hour Holter was normal. There were five syncopal episodes from 08/2012 to 11/2013, all while standing, with narrowing of vision and ringing in her ears before LOC, suggestive of vasovagal syncope. Per patient, initial episodes were characterized by everything going black and hearing goes, like someone's covering her ears. Symptoms last about 10 seconds before she loses consciousness. She often falls and injures herself. In 2012, they were happening every [address] Ramirez and someone at [facility]. She had 24-hour EEG in the hospital; no episodes were recorded. 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 They do not remember hearing an explanation of MAXINE. Episodes went away for several years, for no clear reason. Episodes recurred in 2023; patient thinks 10/2023. They are now happening 2x/week. Often, feels out of it dizzy, lightheaded, lasting hours before the episode. Even walking, feels dizzy, lightheaded and shortness of breath. She has been riding a mobility scooter in the last 2 months. They have seen PCP for episodes but have not mentioned SOB while walking. But even just sitting on sofa, she can start sweating hours before and episode. TYPICAL EPISODES: 1) Falling episodes Description: Patient experiences everything going black and losing hearing for about 10 seconds, and then loses consciousness, often finding herself on the floor. Witnesses: they often just hear her fall; when they have been in the same room, they see her staring, then she falls limp, motionless for about one minute, then gets up, then listless for the rest of the day. Duration: 1-2 minutes Frequency: 2/week 2) Staring episodes No aura. Parent report staring, with delayed responses but she does typically respond to them. Duration: 1-2 minutes Frequency: at least weekly Triggers: flashing lights, video games and early development: FT , delivered via due to breech presentation (mother was on bedrest since early , due to bleeding); normal early development RISK FACTORS FOR SEIZURES 1. Head Trauma (Yes, concussions but none before episodes started); 2. CONSERVATION SCIENCE OFFICER Infections (No); 3. Family History of Seizures (Yes, maternal GM had seizures starting in her 40's and father has undiagnosed episodes, possible neurosarcoid); 4. Developmental Delay (No); 5. Febrile Seizures (No); 6. CONSERVATION SCIENCE OFFICER Tumors (No); 7. CONSERVATION SCIENCE OFFICER Vascular Disease (No); 8. Significant Medical History (depression, anxiety, migraine). CURRENT MEDICATION Current Outpatient Medications Medication Sig gabapentin (NEURONTIN) 100 mg capsule levonorgestrel-ethinyl estradiol (JOLESSA) 0.15 mg-30 mcg (91) per tab, 3 month pack Take 1 tablet by mouth once daily. FLUoxetine (PROZAC) 10 mg capsule Take 10 mg by mouth once daily. pantoprazole DR (PROTONIX) 40 mg tablet Take 1 tablet by mouth once daily. hydrOXYzine pamoate (VISTARIL) 25 mg capsule Take 1 capsule by mouth twice daily as needed. FLUoxetine (PROZAC) 40 mg capsule Take 1 capsule by mouth once daily. busPIRone HCl 30 mg tablet Take 1 tablet by mouth twice daily. NURTEC ODT 75 mg disintegrating tablet Take 1 tablet by mouth every 48 hours as needed. cholecalciferol (VITAMIN D-3) 5,000 unit tab Take 1 tablet by mouth once daily. ondansetron orally disintegrating (ZOFRAN ODT) 4 mg disintegrating tablet dissolve 1 tablet ON TONGUE every 4 hours if needed for nausea and vomiting gabapentin (NEURONTIN) 300 mg capsule Take 300 mg by mouth daily at bedtime. topiramate (TOPAMAX) 100 mg tablet Take 100 mg by mouth two times a day. levonorgestrel-ethinyl estradiol 0.15 mg-30 mcg (91) per tab, 3 month pack Take 1 tablet by mouth as directed. sucralfate (CARAFATE) 100 mg/mL suspension TAKE 10 ML (CC) BY MOUTH TWICE DAILY ON AN EMPTY STOMACH 1 HOUR BEFORE MEALS No current facility-administered medications for this visit. [facility] O[facility] Nurtec 75 mg every other day fluoxetine 10 mg cap + 40 mg cap = 50 mg daily TPM 100 mg BID (100 mg tablets) for migraine GBP 100 mg in AM, 300 mg cap qhs (for anxiety, insomnia) also takes melatonin Buspar 30 mg BID Protonix 40 mg daily (LIDIA) Vistaril 25 mg PRN anxiety (averages 3x/week) ibuprofen PRN headaches and body aches (averages 2-3x/week) Adderall was stopped 2-3 months ago; psychiatrist did not think she needed it; she had been on it 2 years; it was only diagnosed in recent years but she had symptoms her whole life Psychiatrist: Lela Saleh, [facility]; visits are once per month Therapist also at [facility]; sessions are every 2 weeks Anxiety is high right now, in reaction to not feeling well. Bending over causes her dizziness. PRIOR ANTICONVULSANT HISTORY none for seizures PAST MEDICAL HISTORY PAST MEDICAL HISTORY 06/16/2009: Achilles bursitis or tendinitis 04/21/2015: Concussion 04/2009, 04/2015: Depression Comment: The depression 04/2015 was with suicidal ideation and patient was hospitalized. 06/16/2009: Equinus deformity of foot, acquired 12/09/2009: Headache(784.0) No date: Menarche Comment: Age [age] Years Old resolved: Nonspecific (abnormal) findings on radiological and other examination of skull and head Comment: assymetry of head 09/11/2012: Syncope 07/15/2015: Vasovagal episode Migraine: bilateral pounding headache, with nausea, photophobia, treated with Nurtec, prescribed by Dr. Rios. Since taking Nurtec every other day since 12/2023, no ED visits. Prior to that, was in ED 1-2x/month for Toradol. Depression SIMÓN Tilt table [address] [facility] [place]: she felt dizzy but did not pass out; was told that she did not have POTS. PAST SURGICAL HISTORY PAST SURGICAL HISTORY 2006: PAST SURGICAL HISTORY OF Comment: Bilateral hip surgery 2007: PAST SURGICAL HISTORY OF Comment: Bilateral hip surgery plates removed No date: TONSILLECTOMY & ADENOIDECTOMY <AGE 10 FAMILY HISTORY FAMILY HISTORY Problem Relation Age of Onset Diabetes Mother Cancer Mother skin- Unknonw type Hypertension Father Psychiatry Father Diabetes Maternal Grandmother Asthma Maternal Grandmother Hypertension Maternal Grandmother Hypertension Paternal Grandmother Lipids Paternal Grandmother Diabetes Paternal Grandfather Hypertension Paternal Grandfather Cancer Paternal Grandfather Lympoma- leukemia other (leukemia) Paternal Grandfather Anesthesia Problems No Family History Father with balance issues, diagnosed with sarcoidosis, possible neurosarcoid, episodes of speech difficulty. SOCIAL HISTORY Social History Tobacco Use Smoking status: Never Smokeless tobacco: Never Vaping Use Vaping status: Never Used Substance Use Topics Alcohol use: No Drug use: No Lives with mom and dad. Was home schooled through high school. 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 Withdrew from college due to medical issues (GERD, esophagitis, anxiety). REVIEW OF SYSTEMS CONST: 40 lb weight gain over the past year with depression related to esophagitis; no fevers, chills, or night sweats. There have been headaches every two weeks but they have been milder. EYES: no double vision; some blurred vision ENT: no change in hearing; swallowing has improved with Protonix NEURO: no focal weakness or sensory loss; no memory loss CARD: no chest pain or palpitations, no leg edema RESP: shortness of breath with minimal exertion (12 steps) : no urinary urgency, frequency, or hematuria GI: no abdominal pain or change in bowel habits MUSC: some joint aching, knees, neck PSYCH: depressed mood but denies SI; sleeps 1AM to 11AM; SL within 30 minutes; naps during the day for about 3 hours HEME: no bruising, bleeding, or swollen glands. GENERAL EXAMINATION General Appearance: Obese, appears somewhat depressed, turns to mother to answer many questions. Notes lightheadedness with minimal movement during exam. Cardiovascular: Carotids normal. Heart regular rate and rhythm. Peripheral pulses intact. No cyanosis, clubbing, or edema. NEUROLOGICAL EXAM: MENTAL STATUS The patient is oriented to person, place, and time. Speech is clear with normal language. Attention and concentration are normal. CRANIAL NERVES Head is tilted to the right. The pupils are equal. Visual julian are full. Extraocular movements are full. There is no nystagmus. Facial sensation is normal. Facial strength/movement is symmetric. Hearing is intact. Palate elevates normally. Shoulder shrug is intact. Tongue protrudes midline. MOTOR EXAM Tone and bulk are normal. Strength is intact throughout. No pronator drift. SENSORY EXAM There are no gross abnormalities to touch. No sensory extinction to double simultaneous stimuli. COORDINATION Rapid alternating movements are mildly slow bilaterally. [id number] and fine finger movements are normal. GAIT The patient's gait, including tandem walking, is normal. Romberg sign is absent. DATA Prior EEG results were reviewed. -EEG (10/14/2015, [facility] ): normal, no episodes recorded. She remembers having only one EEG ever, at [facility]. Prior MRI results were reviewed. -MRI brain wo (10/11/2015) report via Care Everywhere: Unremarkable -MRI brain wo (01/04/2024, [facility]) report via Care Everywhere: normal [CHAN: reviewed coronal FLAIR and coronal T1 images and I agree that MRI is normal] IMPRESSION 24yo RH woman with anxiety, depression, migraine, here to evaluate two types of episodes: falling and staring. She was diagnosed with vasovagal syncope at 12 years of age and current falling episodes are similar. Her only clear epilepsy risk factor is FH of seizures in a maternal GM. She does have risk factors for PNES. Episodes have not been recorded with video-EEG. PLAN Inpatient video-EEG to record both types of episodes, to determine if she has epilepsy. She should not be driving. RTC TBD. The patient agreed with the plan as outlined above. I spent a total of 60 minutes on the date of the service which included preparing to see the patient, [id number] patient care, completing clinical documentation, obtaining and/or reviewing separately obtained history, performing a medically appropriate examination, counseling and educating the patient/family/caregiver, and ordering medications, tests, or procedures. Edwin Lock MD Please route this encounter to the EMU Scheduling Pool (P EMU) or PMU Scheduling Pool (P PMU) through LOS & Follow up PHASE 1.0 AND 1.5 ORDER SYNOPSIS Patient: Donnie Maldonado ([id number]) Best contact number: [phone] Insurance: Payor: LEON Dick or Bro AND [employer] / Plan: ANTHEM MEDICARE ADVANTAGE HMO / Product Type: HMO / Scheduling Team: Please call for adult patients: EMU coordinator ([phone]) [facility] Coordinator ([phone]) PMU coordinator([phone]) Manager Telemarketing ([phone]) Please call for pediatric patients: PMU coordinator ([phone]) [facility] Coordinator ([phone]) EMU coordinator ([phone]) Manager Telemarketing ([phone]) 04/09/2024 -- Admission Type EMU Adult Number of Days requested 5 Location [facility] Admit Priority Routine 04/09/2024 PURPOSE Patient Being Considered for Epilepsy Surgery? No VEEG recommended to assess seizure burden, address new & concerning syymptom-sign complex, and/or clarify syndromic epilepsy diagnosis? No 04/09/2024 -- Sphenoidal monitoring No Electrode placement Bi-temporal Appointments and Tests EPIL EEG LEAD PLACEMENT EPIL VEEG ADMIT TO EMU/PMU Consultations None Please route this encounter to the EMU Scheduling pool (P EMU) or PMU Scheduling pool (P PMU) through LOS & Follow up Scheduling coordinators: For all VNS patients being scheduled for JAE, please schedule VNS off/on office visits. documented in this encounter [facility] 02-05-2024 Hospital Discharge instructions Patient Education 02/04/2024 22:03:12 Headache, Unspecified Headache, Unspecified A number of [...] face You have trouble talking or seeing 5748-9663 [employer]. [address] [place] [address]. All rights reserved. This information is not intended as a substitute for professional medical care. Always follow your healthcare professional's instructions. Follow Up Care 02/04/2024 21:42:53 With:FANI BAEZ MD, Surgery Address: [address] [place] [address]- When:2-4 days [facility] 02-04-2024 Note Discharge Instructions Thank you for allowing [facility] to assist you with your healthcare needs. The following is important discharge information regarding your hospital visit. Diagnosis from Today's Visit Headache What to Do Next Instructions from Your Care Team No qualifying data available. Post Acute Orders No qualifying data available. You Need to Schedule the Following Appointments Follow Up with FANI BAEZ MD, Surgery When:Within 2-4 days Where:[address] [place] [address]- Allergies Dairy products Glutens azithromycin Medications Please ask your primary doctor [...] needed for as needed for spasm Unchanged dicyclomine (dicyclomine 10 mg oral capsule) 1 cap by mouth Four (4) times a day Duration: 5 Days Unchanged doxycycline (doxycycline hyclate 100 mg oral [...] Days as directed on package labeling Unchanged pantoprazole (pantoprazole 40 mg oral enteric coated tablet) Unchanged rimegepant (Nurtec ODT 75 mg oral tablet, disintegrating) Unchanged topiramate (Topamax 50 mg oral tablet) [...] face You have trouble talking or seeing 9217-1802 [employer]. [address] [place] [address]. All rights reserved. This information is not intended as a substitute for professional medical care. Always follow your healthcare professional's instructions. Additional Information VACCINATE! IT SAVES LIVES! Members of the community who have not yet received the COVID-19 vaccine and would like to receive it can visit one of [facility] vaccine clinics. There are many vaccine clinic locations within the [facility]. For locations and available times, please visit [email or web address] It is important to note that some COVID mobile vaccine clinics are held outdoors and may be canceled in rainy or stormy conditions. To learn more about pediatric vaccinations (ages 5-11), we invite you to visit the [facility] webpage. [email or web address] To learn more about the COVID-19 vaccine, we invite you to visit the CDC website for a list of frequently asked questions. https://www.cdc.gov/coronavirus/2 019-ncov/vaccines/faq.html [facility] Patient Portal Access Instructions: Stay connected with your healthcare team and access your personal medical information anytime with the [employer] Patient Portal. If you would like a full copy of your medical records please contact the [facility] Medical Records Department Tuesday through Tuesday between 8a.m. and 4:30p.m. Please follow the directions below to access the portal: 1.Access the email account you provided upon registration to the hospital.2.Look for an invitation email from [facility].3.Open the email and access the invitation link: Accept Invitation to [facility]4.Fill in the required julian to create your account. Sign into [email or web address] with your username and password that you [...] you will allow to register on the [facility] Patient Portal for access to your information. You can also access the [employer] Patient Portal on the [employer] ifeanyi. Simply click on Health Records under Health Data and then click on the [employer] logo. HOW TO SAFELY DISPOSE OF PRESCRIPTION [...] Call your local pharmacy or go to [email or web address]/[email or web address] to find one close to you.3.Make use of household items: Use cat litter or old coffee grounds to dispose medications if other options are not available. Mix your drugs with these household products, seal them in an airtight container and throw it into the garbage. Call [facility]: [phone] to be sure your drugs can be [...] been reviewed and explained to me and I,DONNIE MALDONADO M understand my current condition and have read and understand these discharge instructions. I have received a written copy of the plan/instructions. If I have questions, I am aware that I should contact my doctor. Patient/Tunnel Mucker Signature: Date/Time: Relationship to Patient: ____ Witness Name/Signature: Date/Time: [facility] 01-10-2024 Note [facility] Medical Records Department [address] [place] [address] History Physical Exam 01/10/24 1405 MR#: [id number] Acct: [id number] Name: DONNIE MALDONADO Rep #: [id number] : 2000 23 From: Cali Friend DO PCP: Dr. Fani Baez MD [place] [facility] [place] [address] History and Physical Date of Admission: 01/10/24 gallbladder removal 09/21 Details: DONNIE MALDONADO, is a 23 F who presents to the office today for follow up. [facility] ED 12..22 continued abdominal pain with postprandial emesis. UA obtained x2, both contaminated. Discharged with 3 days of atb and potassium replacement, Zofran, bentyl. ? Biochemical workup CBC, CMP (potassium 3.1), LFT, lipase without significant abnormality. [facility] ED 12.01.03 continued abd pain radiating into her back; aggravated with eating/drinking ad causes emesis. Discharged with protonix, Zofran and Carafate. ? Biochemical workup CBC, CMP, lipase without significant abnormality. US RUQ hepatic measurement 17cm with normal echogenicity; distended gallbladder with +Sherwood???s sign without pericholecystic fluid; small linear fluid collection anterior to pancreatic head. [facility] gastroenterology established 07.21.22 with right abdominal/flank pain, dysphagia, heartburn, diarrhea ? CT abd/pel 07.22.22 upper normal gallbladder caliber with miniscule nonspecific pericholecystic fluid without cholecystitis features; small stool burden in ascending colon ? EGD 07.30.22 LA Grade D reflux esophagitis; 2cm hiatal hernia; normal duodenum. Pathology noting hyperplastic mucosa changes without metaplasia. ? Protonix 40mg BID; continue Carafate QID *BGI established 08.11.22 following [facility] ED presentations for abdominal pain and dysuria. Presented to urgent care who diagnosed UTI and instructed ED presentation for IVF; [facility] ED presentation without testing indicative of UTI. HIDA scan 09.01.22 <35%. 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 H.Pylori negative. Biochemical workup CBC, ESR, CMP, LDH, АННА comp, ANCA, celiac, IgGME, ASHLEY without pertinent abnormality. Celiac IgA L72 CRP H17, IgA L72 RAST: Low/Equivocal Peanut, Cows milk. Low Wheat. [facility]SA Dr. Garcia seen 09.07.22 with recommendation for laparoscopic cholecystectomy. OV 5.. she has not made any dietary changes to date; she recently moved in with her boyfriend who is a very picky eater. She continues to have symptoms as previously. Notes that if she has both dairy and wheat she will have worse symptoms. She would like to establish with nutrition services. OV 5.9.24 Pt reports that since moving back in with her family and eating home cooked food she is not having any GI symptoms of concern. Pt states that she is working with [employer]. Reports a formed BM every other day which she reports is her normal. Pt continues with Pantoprazole and Busprione. 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 Pt denies seeing a Dr after fall, but states she will go get checked out after this appointment. ROS Const Constitutional: Positive for fatigue, frequent falls, headache(s) and weakness; No fever(s) or weight change ENT ENT: Positive for headache(s); No difficulty swallowing Gastro GI: Positive for nausea/dyspepsia; No abdominal pain, belching, bloating, change in bowel habits, change in stool character, coffee ground emesis, constipation, cramping, diarrhea, heartburn, difficulty swallowing, feeling full early, excessive flatus, incontinent of stools, Vomiting blood/hematemesis, Blood in stool, loose stools, Black,tarry stools, pain with swallowing, vomiting or other Musc Musculoskeletal: Positive for joint pain, back pain and stiffness Skin Skin: No yellowing of the eye or itchy eyes Neuro Neurology: Positive for weakness, frequent falls, headache(s), tremor(s) and seizures Psych Psychiatric: Positive for anxiety and No depression Endo Endocrine: Positive for fatigue; No weight change Aller/Imm Allergy/Immunologic: No itchy eyes Josué/Lymp Hematologic/Lymphatic: No easy bleeding or easy bruising Exam Const General: cooperative and comfortable Nutritional Appearance: average body habitus and well nourished HENMT Head: normal to inspection Ears: hearing grossly normal bilaterally Nose: external nose normal Face and sinus: normal facial exam Mouth: oral mucosae normal Throat: posterior oropharynx normal Eyes General: appearance normal, both eyes and all relate (more content not included)... [facility] 01-04-2024 History of Present illness Narrative Radiology Service Progress Note PATIENT NAME: Donnie Maldonado DATE OF SERVICE: January 04, 2024 TIME: 10:20 AM PATIENT IDENTITY VERIFICATION COMPLETED USING TWO (2) IDENTIFIERS: Name and Date of confirmed by patient verbally. FALL SCREENING: Has the patient had 2 falls in the last year or 1 fall with injury or currently using an Ambulatory Assistive Device (Walker, Cane, Wheelchair, Crutches, etc.)? No PATIENT GENDER DATA: Female. status: : No status: NO. PATIENT RELEVANT IMPLANT DATA REVIEWED: Yes PATIENT PRESENTS WITH AN IMPLANTABLE OR ATTACHED GAS PUMP ATTENDANT: No RADIOLOGY DEPARTMENT: MR; Exam(s) Completed: Head: Seizure PERIPHERAL IV DATA: Not applicable SIGNED BY: RT Brenda(Brittny)RT(R) January 04, 2024 10:20 AM documented in this encounter [facility] 01-04-2024 Note HNO ID: [id number] Author: MIKEL CADE RT(Brittny) Service: ? Author Type: Sand Miller Type: Progress Notes Filed: 01/04/2024 10:27 Note Text: Radiology Service Progress Note PATIENT NAME: Donnie Maldonado DATE OF SERVICE: January 04, 2024 TIME: 10:20 AM PATIENT IDENTITY VERIFICATION COMPLETED USING TWO (2) IDENTIFIERS: Name and Date of confirmed by patient verbally. FALL SCREENING: Has the patient had 2 falls in the last year or 1 fall with injury or currently using an Ambulatory Assistive Device (Walker, Cane, Wheelchair, Crutches, etc.)? No PATIENT GENDER DATA: Female. status: : No status: NO. PATIENT RELEVANT IMPLANT DATA REVIEWED: Yes PATIENT PRESENTS WITH AN IMPLANTABLE OR ATTACHED GAS PUMP ATTENDANT: No RADIOLOGY DEPARTMENT: MR; Exam(s) Completed: Head: Seizure PERIPHERAL IV DATA: Not applicable SIGNED BY: Mikel Cade RT(R), RT(R) January 04, 2024 10:20 AM [facility] 09-04-2023 Hospital Discharge instructions Patient Education 09/04/2023 00:07:20 Dizziness, Uncertain Cause Dizziness (Uncertain Cause) Dizziness is a common symptom. It may be described as lightheadedness, spinning, or feeling like you are going to faint. Dizziness can have many causes. Be sure to tell the healthcare provider about: All medicines you take, including prescription, qafy-vwy-icnkfox, herbs, and supplements Any other symptoms you have Any health problems you are being treated for Any past major health problems you've had, such as a heart attack, balance issues, hearing problems, or blood pressure problems Anything that causes the dizziness to get worse or better Today's exam did not show an exact cause for your dizziness. Other tests may be needed. Follow up with your healthcare provider. Home care Dizziness that occurs with sudden standing may be a sign of mild dehydration. Drink extra fluids for the next few days. If you recently started a new medicine, stopped a medicine, or had the dose of a current medicine changed, talk with the prescribing healthcare provider. Your medicine plan may need adjustment. If dizziness lasts more than a few seconds, sit or lie down until it passes. This may help prevent injury in case you pass out. Get up slowly when you feel better. Don't drive or use power tools or dangerous equipment until you have had no dizziness for at least 48 hours. Follow-up care Follow up with your healthcare provider for further evaluation within the next 7 days or as advised. When to seek medical advice Call your healthcare provider for any of the following: Worsening of symptoms or new symptoms Passing out or seizure Repeated vomiting Headache Palpitations (the sense that your heart is fluttering or beating fast or hard) Shortness of breath Blood in vomit or stool (black or red color) Weakness of an arm or leg or 1 side of the face Vision or hearing changes Trouble walking or speaking Chest, arm, neck, back, or jaw pain 5400-9035 [employer]. [address] [place] [address]. All rights reserved. This information is not intended as a substitute for professional medical care. Always follow your healthcare professional's instructions. Follow Up Care 09/03/2023 23:43:28 With:FANI BAEZ Address: [address] [place] [address]- Business (1) When:2-4 days [facility] 09-04-2023 Note Discharge Instructions Thank you for allowing [facility] to assist you with your healthcare needs. The following is important discharge information regarding your hospital visit. Diagnosis from Today's Visit Ear pain Impacted cerumen of left ear What to Do Next Instructions from Your Care Team No qualifying data available. Post Acute Orders No qualifying data available. You Need to Schedule the Following Appointments Follow Up with FANI BAEZ When Within 2-4 days Where: [address] [place] [address]- Business (1) Allergies Dairy products Glutens azithromycin Medications Please ask your primary doctor or pharmacist before taking any other medication not listed, including over the counter drugs, herbal medications, vitamins and or supplements as they may interact with your home medications. What How Much When Instructions Last Dose New meclizine (meclizine 25 mg oral tablet) 1 tab(s) by mouth Three (3) times a day Duration: 5 Days Printed Prescription Please take this list to your next doctor s visit. Bring all medications you take, including over the counter medications, herbals and other supplements with you to your doctor s visit. Patients and families are reminded to discard old lists and to update any records with all medication providers or retail pharmacies. Education Materials Dizziness (Uncertain Cause) Dizziness is a common symptom. It may be described as lightheadedness, spinning, or feeling like you are going to faint. Dizziness can have many causes. Be sure to tell the healthcare provider about: All medicines you take, including prescription, fvyi-aii-vnkywad, herbs, and supplements Any other symptoms you have Any health problems you are being treated for Any past major health problems you've had, such as a heart attack, balance issues, hearing problems, or blood pressure problems Anything that causes the dizziness to get worse or better Today's exam did not show an exact cause for your dizziness. Other tests may be needed. Follow up with your healthcare provider. Home care Dizziness that occurs with sudden standing may be a sign of mild dehydration. Drink extra fluids for the next few days. If you recently started a new medicine, stopped a medicine, or had the dose of a current medicine changed, talk with the prescribing healthcare provider. Your medicine plan may need adjustment. If dizziness lasts more than a few seconds, sit or lie down until it passes. This may help prevent injury in case you pass out. Get up slowly when you feel better. Don't drive or use power tools or dangerous equipment until you have had no dizziness for at least 48 hours. Follow-up care Follow up with your healthcare provider for further evaluation within the next 7 days or as advised. When to seek medical advice Call your healthcare provider for any of the following: Worsening of symptoms or new symptoms Passing out or seizure Repeated vomiting Headache Palpitations (the sense that your heart is fluttering or beating fast or hard) Shortness of breath Blood in vomit or stool (black or red color) Weakness of an arm or leg or 1 side of the face Vision or hearing changes Trouble walking or speaking Chest, arm, neck, back, or jaw pain 2664-4534 [employer]. [address] [place] [address], [place] [address]. All rights reserved. This information is not intended as a substitute for professional medical care. Always follow your healthcare professional's instructions. Additional Information VACCINATE! IT SAVES LIVES! Members of the community who have not yet received the COVID-19 vaccine and would like to receive it can visit one of [facility] vaccine clinics. There are many vaccine clinic locations within the [facility]. For locations and available times, please visit [email or web address] [email or web address] It is important to note that some COVID mobile vaccine clinics are held outdoors and may be canceled in rainy or stormy conditions. To learn more about pediatric vaccinations (ages 5-11), we invite you to visit the [facility] webpage. https://www.HZOs.org/pa ges/1262-Ntxxs-Hmhrmlfcyob-Freque wxgp-Rsrmd-Kercpdazk.html To learn more about the COVID-19 vaccine, we invite you to visit the CDC website for a list of frequently asked questions. https://www.cdc.gov/coronavirus/2 019-ncov/vaccines/faq.html [facility] Patient Portal Access Instructions: Stay connected with your healthcare team and access your personal medical information anytime with the [facility] Patient Portal. If you would like a full copy of your medical records please contact the [facility] Medical Records Department Tuesday through Tuesday between 8a.m. and 4:30p.m. Please follow the directions below to access the portal: 1.Access the email account you provided upon registration to the hospital.2.Look for an invitation email from [facility].3.Open the email and access the invitation link: Accept Invitation to [facility]4.Fill in the required julian to create your account. Sign into [email or web address] with your username and password that you [...] you will allow to register on the [facility] Patient Portal for access to your information. You can also access the [facility] Patient Portal on the [employer] ifeanyi. Simply click on Health Records under Health Data and then click on the [facility] logo. HOW TO SAFELY DISPOSE OF PRESCRIPTION [...] Call your local pharmacy or go to http://Admaxim.Rewarder/[email or web address] to find one close to you.3.Make use of household items: Use cat litter or old coffee grounds to dispose medications if other options are not available. Mix your drugs with these household products, seal them in an airtight container and throw it into the garbage. Call [facility]: [phone] to be sure your drugs can be [...] a CHART COPY Signatures Patient Education Materials Dizziness, Uncertain Cause Medication Leaflets My discharge plan and instructions have been reviewed and explained to me and IAUDIE ALYSSA M understand my current condition and have read and understand these discharge instructions. I have received a written copy of the plan/instructions. If I have questions, I am aware that I should contact my doctor. Patient/Tunnel Mucker Signature: Date/Time: Relationship to Patient: ____ Witness Name/Signature: Date/Time: [facility] 05-29-2023 Hospital Discharge instructions Patient Education 05/29/2023 21:05:38 Preventing Migraine Headaches: Triggers Preventing Migraine Headaches: Triggers Red wine is a common migraine trigger. The first step in preventing migraines is to learn what triggers them. You may then be able to control your triggers to avoid or reduce the severity of your migraines. Know your triggers Be aware that you may have more than one trigger, and that some triggers may work together. Common migraine triggers include: Food and nutrition. Skipping meals or not drinking enough water can trigger headaches. So can certain foods, such as caffeine, chocolate, artificial sweeteners, monosodium glutamate (MSG), aged cheese, or sausage. Alcohol. Red wine and other alcoholic beverages are common migraine triggers. Chemicals. Scents, cleaning products, gasoline, glue, perfume, and paint can be triggers. So can tobacco smoke, including secondhand smoke. Emotions. Stress can trigger headaches or make them worse once they start. Sleep disruption. Staying up late, sleeping late, and traveling across time zones can disrupt your sleep cycle, triggering headaches. Hormones. Many women notice that migraines tend to happen at a certain point in their menstrual cycle. control pills or hormone replacement therapy may also trigger migraines. Environment and weather. Air travel, changes in altitude, air pressure changes, hot sun, or bright or flashing lights can be triggers. Medicine overuse. Frequent use of pain medicines for headache pain can also cause a headache. This may also be called rebound headache. Control your triggers These are some of the things you can do to try to control triggers: Avoid triggers if you can. For example, stay clear of alcohol and foods that trigger your headaches. Use unscented household products. Keep regular sleep habits. Manage stress to help control emotional triggers. Change your behavior at times when triggers can't be avoided. For example, make sure to get enough rest and drink plenty of water while you're traveling. Make sure to carry a hat, sunglasses, and your medicines. Be alert for migraine symptoms, so you can treat a migraine early if it happens. 0550-1242 [employer]. [address] [place] [address]. All rights reserved. This information is not intended as a substitute for professional medical care. Always follow your healthcare professional's instructions. Follow Up Care 05/29/2023 20:41:24 With:FANI BAEZ MD, Surgery Address: [address] [place] [address]- When:2-4 days [facility] 05-29-2023 Note Discharge Instructions Thank you for allowing [facility] to assist you with your healthcare needs. The following is important discharge information regarding your hospital visit. Diagnosis from Today's Visit Headache Migraine headache What to Do Next Instructions from Your Care Team Discharge Return to Work, School, or Sports (Return to Work, School, or Sports) (Discharge Return to status) - Ordered -- 05/30/23, May return to: work, 05/29/23 21:05:00 EDT Post Acute Orders No qualifying data available. You Need to Schedule the Following Appointments Follow Up with FANI BAEZ MD, Surgery When Within 2-4 days Where: [address] [place] [phone]- Allergies Dairy products Glutens azithromycin Medications Please ask your primary doctor [...] needed for as needed for spasm Unchanged dicyclomine (dicyclomine 10 mg oral capsule) 1 cap by mouth Four (4) times a day Duration: 5 Days Unchanged doxycycline (doxycycline hyclate 100 mg oral [...] Days as directed on package labeling Unchanged pantoprazole (pantoprazole 40 mg oral enteric coated tablet) Unchanged rimegepant (Nurtec ODT 75 mg oral tablet, disintegrating) Unchanged topiramate (Topamax 50 mg oral tablet) [...] medication providers or retail pharmacies. Education Materials Preventing Migraine Headaches: Triggers Red wine is a common migraine trigger. The first step in preventing migraines is to learn what triggers them. You may then be able to control your triggers to avoid or reduce the severity of your migraines. Know your triggers Be aware that you may have more than one trigger, and that some triggers may work together. Common migraine triggers include: Food and nutrition. Skipping meals or not drinking enough water can trigger headaches. So can certain foods, such as caffeine, chocolate, artificial sweeteners, monosodium glutamate (MSG), aged cheese, or sausage. Alcohol. Red wine and other alcoholic beverages are common migraine triggers. Chemicals. Scents, cleaning products, gasoline, glue, perfume, and paint can be triggers. So can tobacco smoke, including secondhand smoke. Emotions. Stress can trigger headaches or make them worse once they start. Sleep disruption. Staying up late, sleeping late, and traveling across time zones can disrupt your sleep cycle, triggering headaches. Hormones. Many women notice that migraines tend to happen at a certain point in their menstrual cycle. control pills or hormone replacement therapy may also trigger migraines. Environment and weather. Air travel, changes in altitude, air pressure changes, hot sun, or bright or flashing lights can be triggers. Medicine overuse. Frequent use of pain medicines for headache pain can also cause a headache. This may also be called rebound headache. Control your triggers These are some of the things you can do to try to control triggers: Avoid triggers if you can. For example, stay clear of alcohol and foods that trigger your headaches. Use unscented household products. Keep regular sleep habits. Manage stress to help control emotional triggers. Change your behavior at times when triggers can't be avoided. For example, make sure to get enough rest and drink plenty of water while you're traveling. Make sure to carry a hat, sunglasses, and your medicines. Be alert for migraine symptoms, so you can treat a migraine early if it happens. 0771-1672 [employer]. [address] [place] [address]. All rights reserved. This information is not intended as a substitute for professional medical care. Always follow your healthcare professional's instructions. Additional Information VACCINATE! IT SAVES LIVES! Members of the community who have not yet received the COVID-19 vaccine and would like to receive it can visit one of [facility] vaccine clinics. There are many vaccine clinic locations within the [facility]. For locations and available times, please visit [email or web address] [email or web address] It is important to note that some COVID mobile vaccine clinics are held outdoors and may be canceled in rainy or stormy conditions. To learn more about pediatric vaccinations (ages 5-11), we invite you to visit the [facility] webpage. https://www.[facility].org/pa ges/5244-Arhhf-Wrnthzkxdjh-Freque mkwm-Ulzdl-Bdtrcmqzw.html To learn more about the COVID-19 vaccine, we invite you to visit the CDC website for a list of frequently asked questions. https://www.cdc.gov/coronavirus/2 019-ncov/vaccines/faq.html [facility] Patient Portal Access Instructions: Stay connected with your healthcare team and access your personal medical information anytime with the [facility] Patient Portal. If you would like a full copy of your medical records please contact the [facility] Medical Records Department Tuesday through Tuesday between 8a.m. and 4:30p.m. Please follow the directions below to access the portal: 1.Access the email account you provided upon registration to the [facility].2.Look for an invitation email from [facility].3.Open the email and access the invitation link: Accept [facility]itation to [facility]4.Fill in the required julian to create your account. Sign into [email or web address] with your username and password that you [...] you will allow to register on the [facility] Patient Portal for access to your information. You can also access the [facility] Patient Portal on the [employer]. Simply click on Health Records under Health Data and then click on the [email or web address] logo. HOW TO SAFELY DISPOSE OF PRESCRIPTION [...] Call your local pharmacy or go to http://bit.ly/0E6Ek4k to find one close to you.3.Make use of household items: Use cat litter or old coffee grounds to dispose medications if other options are not available. Mix your drugs with these household products, seal them in an airtight container and throw it into the garbage. Call [facility]: [phone] to be sure your drugs can be [...] a CHART COPY Signatures Patient Education Materials Preventing Migraine Headaches: Triggers Medication Leaflets My discharge plan and instructions have been reviewed and explained to me and I,DONNIE MALDONADO M understand my current condition and have read and understand these discharge instructions. I have received a written copy of the plan/instructions. If I have questions, I am aware that I should contact my doctor. Patient/Tunnel Mucker Signature: Date/Time: Relationship to Patient: ____ Witness Name/Signature: Date/Time: [facility] 02-19-2023 Hospital Discharge instructions Patient Education 02/19/2023 09:00:53 Headache, Unspecified Headache, Unspecified A number of [...] face You have trouble talking or seeing 0515-4773 [employer]. [address] [place] [address]. All rights reserved. This information is not intended as a substitute for professional medical care. Always follow your healthcare professional's instructions. Follow Up Care 02/19/2023 08:44:26 With:your neurologist Address: When:2-4 days With:Go to emergency room if symptoms worsen Address:Unknown When:2-4 days With:FANI BAEZ MD, Surgery Address: [address] [place] [address]- When:2-4 days [facility] 02-19-2023 Note Discharge Instructions Thank you for allowing [facility] to assist you with your healthcare needs. The following is important discharge information regarding your hospital visit. Diagnosis from Today's Visit Headache Head pain What to Do Next Instructions from Your Care Team No qualifying data available. Post Acute Orders No qualifying data available. You Need to Schedule the Following Appointments Follow Up with your neurologist When Within 2-4 days Where: Follow Up with Go to emergency room if symptoms worsen When Within 2-4 days Follow Up with FANI BAEZ MD, Surgery When Within 2-4 days Where: [address] [place], [place] [id number]- Allergies Dairy products Glutens azithromycin Medications Please ask your primary doctor [...] needed for as needed for spasm Unchanged dicyclomine (dicyclomine 10 mg oral capsule) 1 cap by mouth Four (4) times a day Duration: 5 Days Unchanged doxycycline (doxycycline hyclate 100 mg oral [...] Days as directed on package labeling Unchanged pantoprazole (pantoprazole 40 mg oral enteric coated tablet) Unchanged rimegepant (Nurtec ODT 75 mg oral tablet, disintegrating) Unchanged topiramate (Topamax 50 mg oral tablet) [...] face You have trouble talking or seeing 5305-9691 [employer]. [address] [place] [address], [place] [address]. All rights reserved. This information is not intended as a substitute for professional medical care. Always follow your healthcare professional's instructions. Additional Information VACCINATE! IT SAVES LIVES! Members of the community who have not yet received the COVID-19 vaccine and would like to receive it can visit one of [facility] vaccine clinics. There are many vaccine clinic locations within the [facility]. For locations and available times, please visit [email or web address] ov/. It is important to note that some COVID mobile vaccine clinics are held outdoors and may be canceled in rainy or stormy conditions. To learn more about pediatric vaccinations (ages 5-11), we invite you to visit the [facility] webpage. https://www.HZOs.org/pa ges/7675-Vgyhv-Rmmmjambrsy-Freque xerv-Gkrfn-Cydmeelfo.html To learn more about the COVID-19 vaccine, we invite you to visit the CDC website for a list of frequently asked questions. https://www.cdc.gov/coronavirus/2 019-ncov/vaccines/faq.html [facility] Patient Portal Access Instructions: Stay connected with your healthcare team and access your personal medical information anytime with the [facility] Patient Portal. If you would like a full copy of your medical records please contact the [facility] Medical Records Department Tuesday through Tuesday between 8a.m. and 4:30p.m. Please follow the directions below to access the portal: 1.Access the email account you provided upon registration to the hospital.2.Look for an invitation email from [facility].3.Open the email and access the invitation link: Accept Invitation to [facility]4.Fill in the required julian to create your account. Sign into [email or web address] with your username and password that you [...] you will allow to register on the [facility] Patient Portal for access to your information. You can also access the [facility] Patient Portal on the [employer] ifeanyi. Simply click on Health Records under Health Data and then click on the [email or web address] logo. HOW TO SAFELY DISPOSE OF PRESCRIPTION [...] Call your local pharmacy or go to http://Admaxim.Rewarder/[email or web address] to find one close to you.3.Make use of household items: Use cat litter or old coffee grounds to dispose medications if other options are not available. Mix your drugs with these household products, seal them in an airtight container and throw it into the garbage. Call [facility]: [phone] to be sure your drugs can be [...] been reviewed and explained to me and I,DONNIE MALDONADO M understand my current condition and have read and understand these discharge instructions. I have received a written copy of the plan/instructions. If I have questions, I am aware that I should contact my doctor. 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 [address] [place] [address], [place] [address]. All rights reserved. This information is not intended as a substitute for professional medical care. Always follow your healthcare professional's instructions. Follow Up Care 11/28/2022 11:03:22 With:FANI BAEZ Address: [address] [place] [address]- Business (1) When:2-4 days [facility] 11-28-2022 Note Discharge Instructions Thank you for allowing [facility] to assist you with your healthcare needs. The following is important discharge information regarding your hospital visit. Diagnosis from Today's Visit Head ache Head pain What to Do Next Instructions from Your Care Team No qualifying data available. Post Acute Orders No qualifying data available. You Need to Schedule the Following Appointments Follow Up with FANI BAEZ When Within 2-4 days Where: [address] [place] [id number] Business (1) Allergies azithromycin Medications Please ask [...] needed for as needed for spasm Unchanged dicyclomine (dicyclomine 10 mg oral capsule) 1 cap by mouth Four (4) times a day Duration: 5 Days Unchanged doxycycline (doxycycline hyclate 100 mg oral [...] Days as directed on package labeling Unchanged pantoprazole (pantoprazole 40 mg oral enteric coated tablet) Unchanged rimegepant (Nurtec ODT 75 mg oral tablet, disintegrating) Unchanged topiramate (Topamax 50 mg oral tablet) [...] face You have trouble talking or seeing 9496-3957 [employer]. [address] [place] [address]. All rights reserved. This information is not intended as a substitute for professional medical care. Always follow your healthcare professional's instructions. Additional Information VACCINATE! IT SAVES LIVES! Members of the community who have not yet received the COVID-19 vaccine and would like to receive it can visit one of [facility] vaccine clinics. There are many vaccine clinic locations within the [facility]. For locations and available times, please visit [email or web address] It is important to note that some COVID mobile vaccine clinics are held outdoors and may be canceled in rainy or stormy conditions. To learn more about pediatric vaccinations (ages 5-11), we invite you to visit the [facility] webpage. [email or web address] To learn more about the COVID-19 vaccine, we invite you to visit the CDC website for a list of frequently asked questions. https://www.cdc.gov/coronavirus/2 019-ncov/vaccines/faq.html [facility] Patient Portal Access Instructions: Stay connected with your healthcare team and access your personal medical information anytime with the [facility] Patient Portal. If you would like a full copy of your medical records please contact the [facility] Medical Records Department Tuesday through Tuesday between 8a.m. and 4:30p.m. Please follow the directions below to access the portal: 1.Access the email account you provided upon registration to the [facility].2.Look for an invitation email from [facility].3.Open the email and access the invitation link: Accept Invitation to [facility]4.Fill in the required julian to create your account. Sign into [email or web address] with your username and password that you [...] you will allow to register on the [facility] Patient Portal for access to your information. You can also access the [facility] Patient Portal on the [employer]. Simply click on Health Records under Health Data and then click on the [employer] logo. HOW TO SAFELY DISPOSE OF PRESCRIPTION [...] Call your local pharmacy or go to http://bit.Rewarder/[email or web address] to find one close to you.3.Make use of household items: Use cat litter or old coffee grounds to dispose medications if other options are not available. Mix your drugs with these household products, seal them in an airtight container and throw it into the garbage. Call [facility]: [phone] to be sure your drugs can be [...] been reviewed and explained to me and I,DONNIE MALDONADO M understand my current condition and have read and understand these discharge instructions. I have received a written copy of the plan/instructions. If I have questions, I am aware that I should contact my doctor. Patient/Tunnel Mucker Signature: Date/Time: Relationship to Patient: ____ Witness Name/Signature: Date/Time: [facility] 11-14-2022 Hospital Discharge instructions Patient Education 11/14/2022 13:03:35 HEADACHE, Migraine (Classical) Migraine Headache Migraine headaches [...] of your face Difficulty talking or seeing 7338-3890 [employer]. [address] [place] [address]. All rights reserved. This information is not intended as a substitute for professional medical care. Always follow your healthcare professional's instructions. Follow Up Care 11/14/2022 11:50:14 With:Your neurologist Address: When:2-4 days With:FANI BAEZ MD, Surgery Address: [address] [place] [id number]- When:2-4 days With:Go to emergency room if symptoms worsen Address:Unknown When:2-4 days [facility] 11-14-2022 Note Discharge Instructions Thank you for allowing [facility] to assist you with your healthcare needs. The following is important discharge information regarding your hospital visit. Diagnosis from Today's Visit Migraine Head pain What to Do Next Instructions from Your Care Team No qualifying data available. Post Acute Orders No qualifying data available. You Need to Schedule the Following Appointments Follow Up with Your neurologist When Within 2-4 days Where: Follow Up with FANI BAEZ MD, Surgery When Within 2-4 days Where: [address] [place] [address]- Follow Up with Go to emergency room if symptoms worsen When Within 2-4 days Allergies azithromycin Medications Please ask your primary doctor or pharmacist before taking any other medication not listed, including over the counter drugs, herbal medications, vitamins and or supplements as they may interact with your home medications. What How Much When Why Instructions Last Dose New naproxen (naproxen 500 mg oral tablet) 1 tab(s) by mouth Two (2) times a day Migraine Printed Prescription New prochlorperazine (prochlorperazine 10 mg oral tablet) 1 tab(s) by mouth Four (4) times a day Migraine Printed Prescription Unchanged albuterol (albuterol MDI (90 [...] needed for as needed for spasm Unchanged dicyclomine (dicyclomine 10 mg oral capsule) 1 cap by mouth Four (4) times a day Duration: 5 Days Unchanged doxycycline (doxycycline hyclate 100 mg oral [...] Days as directed on package labeling Unchanged pantoprazole (pantoprazole 40 mg oral enteric coated tablet) Unchanged rimegepant (Nurtec ODT 75 mg oral tablet, disintegrating) Unchanged topiramate (Topamax 50 mg oral tablet) [...] with all medication providers or retail pharmacies. Medication Leaflets prochlorperazine (oral/injection) (pro klor PER terence tolliver) What is the most important information I should know about prochlorperazine? You should not use prochlorperazine if you have recently used alcohol, sedatives, tranquilizers, or narcotic medications. Prochlorperazine is not approved for use by anyone younger than 2 years old or weighing less than 20 pounds. Do not give this medicine to a child before or after a surgery. Prochlorperazine is not approved for use in older adults with dementia-related psychosis. Call your doctor at once if you have uncontrollable movements of your eyes, lips, tongue, face, arms, or legs. These could be early signs of dangerous side effects. What is prochlorperazine? Prochlorperazine is a phenothiazine (DCYW-au-WZUT-a-zeen) antipsychotic medicine that is used to treat anxiety or schizophrenia. Prochlorperazine is also used to control severe nausea and vomiting. Prochlorperazine may also be used for purposes not listed in this medication guide. What should I discuss with my healthcare provider before using prochlorperazine? You should not use this medicine if you are allergic to prochlorperazine or other phenothiazines (such as chlorpromazine, fluphenazine, perphenazine, promethazine, thioridazine, or trifluoperazine). Do not use prochlorperazine if you have recently used large amounts of alcohol or medicine that makes you sleepy. Prochlorperazine is not approved for use by anyone younger than 2 years old or weighing less than 20 pounds. Talk with your doctor before giving prochlorperazine to a child or teenager with a fever, flu symptoms, vomiting, or diarrhea. Do not give this medicine to a child before or after a surgery. Prochlorperazine may increase the risk of in older adults with dementia-related psychosis and is not approved for this use. Tell your doctor if you have ever had: heart disease; seizures, or a brain tumor; low white blood cell (WBC) counts; glaucoma; pheochromocytoma (tumor of the adrenal gland); low blood pressure; breast cancer; or chemotherapy. Tell your doctor if you will be exposed to extreme heat or cold, or to insecticide poisons while you are using prochlorperazine. Tell your doctor if you are or you get . Taking antipsychotic medication during the last 3 months of may cause breathing problems, feeding problems, or withdrawal symptoms in the . It may not be safe to breastfeed while using this medicine. Ask your doctor about any risk. How should I use prochlorperazine? Follow all directions on your prescription label and read all medication guides or instruction sheets. Your doctor may occasionally change your dose. Use the medicine exactly as directed. Prochlorperazine oral is taken by mouth. Prochlorperazine doses are based on weight in children. Your child's dose needs may change if the child gains or loses weight. Prochlorperazine injection is injected into a muscle or as an infusion into a vein. A healthcare provider will give you this injection. After receiving a prochlorperazine injection, you may need to remain lying down for at least 30 minutes. You may feel light-headed when you first stand up. If you use prochlorperazine long-term, you may need frequent medical tests. Do not stop using prochlorperazine suddenly after long-term use, or you could have unpleasant symptoms such as nausea, vomiting, dizziness, or tremors. Ask your doctor how to safely stop using this medicine. Store at room temperature away from moisture, heat, and light. What happens if I miss a dose? Use the medicine as soon as you can, but skip the missed dose if it is almost time for your next dose. Do not use two doses at one time. What happens if I overdose? Seek emergency medical attention or call the Poison Help line at . Overdose can cause severe drowsiness, irregular heartbeats, agitation, seizure, or fainting. What should I avoid while using prochlorperazine? Drinking alcohol with this medicine can cause side effects. Avoid driving or hazardous activity until you know how this medicine will affect you. This medicine may cause dizziness or blurred vision and may impair your reactions. Dizziness can cause falls, accidents, or severe injuries. Avoid getting up too fast from a sitting or lying position, or you may feel dizzy. Prochlorperazine could make you sunburn more easily. Avoid sunlight or tanning beds. Wear protective clothing and use sunscreen (SPF 30 or higher) when you are outdoors. What are the possible side effects of prochlorperazine? Get emergency medical help if you have signs of an allergic reaction: hives; difficult breathing; swelling of your face, lips, tongue, or throat. High doses or long-term use of prochlorperazine can cause a serious movement disorder that may not be reversible. The longer you use prochlorperazine, the more likely you are to develop this disorder, especially if you are a woman or an older adult. Call your doctor at once if you have: uncontrolled muscle movements in your arms and legs, or your face (chewing, lip smacking, frowning, tongue movement, blinking or eye movement); trouble speaking or swallowing, stiffness or muscle spasms in your neck; tremors, or any new or unusual muscle movements you cannot control; extreme drowsiness or light-headed feeling (like you might pass out); little or no urination; agitation, restlessness; severe constipation, stomach pain, bloating; jaundice (yellowing of the skin or eyes); low blood cell counts--fever, chills, sore throat, cough, trouble breathing, mouth sores, skin sores, pale skin, easy bruising or bleeding; lupus-like symptoms--muscle or joint pain, flu symptoms, chest pain, and a rash or patchy skin color that worsens in sunlight; or severe nervous system reaction--very stiff (rigid) muscles, high fever, sweating, confusion, fast or uneven heartbeats. Side effects such as dry mouth, constipation, confusion, and tremors may be more likely in older adults. Common side effects may include: headache, dizziness, drowsiness; dry mouth, stuffy nose; nausea, constipation; increased appetite, weight gain; blurred vision; agitation, feeling jittery, trouble sleeping; skin redness, itching, or rash; missed menstrual periods; or impotence, abnormal ejaculation. This is not a complete list of side effects and others may occur. Call your doctor for medical advice about side effects. You may report side effects to FDA at 6-780-EYR-9986. What other drugs will affect prochlorperazine? Using prochlorperazine with other drugs that make you sleepy or slow your breathing can cause dangerous side effects. Ask your doctor before using opioid medication, a sleeping pill, a muscle relaxer, or medicine for anxiety or seizures. Tell your doctor about all your current medicines. Many drugs can affect prochlorperazine, especially: lithium; propranolol; a diuretic or 'water pill'; a blood thinner (warfarin, Coumadin, Jantoven); or seizure medication. This list is not complete and many other drugs may affect prochlorperazine. This includes prescription and qaok-sjl-pqhtvka medicines, vitamins, and herbal products. Not all possible drug interactions are listed here. Where can I get more information? Your pharmacist can provide more information about oral prochlorperazine. Remember, keep this and all other medicines out of the reach of children, never share your medicines with others, and use this medication only for the indication prescribed. Every effort has been made to ensure that the information provided by [employer]. [employer]') is accurate, up-to-date, and complete, but no guarantee is made to that effect. Drug information contained herein may be time sensitive. [employer] information has been compiled for use by healthcare practitioners and consumers in the [place] and therefore [employer] does not warrant that uses outside of the [place] are appropriate, unless specifically indicated otherwise. [employer]'s drug information does not endorse drugs, diagnose patients or recommend therapy. [employer] drug information is an informational resource designed to assist licensed healthcare practitioners in caring for their patients and/or to serve consumers viewing this service as a supplement to, and not a substitute for, the expertise, skill, knowledge and judgment of healthcare practitioners. The absence of a warning for a given drug or drug combination in no way should be construed to indicate that the drug or drug combination is safe, effective or appropriate for any given patient. [facility] does not assume any responsibility for any aspect of healthcare administered with the aid of information [facility] provides. The information contained herein is not intended to cover all possible uses, directions, precautions, warnings, drug interactions, allergic reactions, or adverse effects. If you have questions about the drugs you are taking, check with your doctor, nurse or pharmacist. Copyright 9803-3078 [facility]. Version: .. Revision Date: 12/07/2019. naproxen (na PROX en) Aleve, Anaprox-DS, Midol Extended Relief, Naprelan 500, Naprosyn What is the most important information I should know about naproxen? Naproxen can increase your risk of fatal heart attack or stroke. Do not use this medicine just before or after heart bypass surgery (coronary artery bypass graft, or CABG). Naproxen may also cause stomach or intestinal bleeding, which can be fatal. What is naproxen? Naproxen is a nonsteroidal anti-inflammatory drug (NSAID). Naproxen is used to treat pain or inflammation caused by conditions such as arthritis, ankylosing spondylitis, tendinitis, bursitis, gout, or menstrual cramps. The delayed-release or extended-release tablets are slower-acting forms of naproxen that are used only for treating chronic conditions such as arthritis or ankylosing spondylitis. These forms of naproxen will not work fast enough to treat acute pain. Naproxen may also be used for purposes not listed in this medication guide. What should I discuss with my healthcare provider before taking naproxen? Naproxen can increase your risk of fatal heart attack or stroke, even if you don't have any risk factors. Do not use this medicine just before or after heart bypass surgery (coronary artery bypass graft, or CABG). Naproxen may also cause stomach or intestinal bleeding, which can be fatal. These conditions can occur without warning while you are using naproxen, especially in older adults. You should not use naproxen if you are allergic to it, or if you have ever had an asthma attack or severe allergic reaction after taking aspirin or an NSAID. Ask a doctor before giving naproxen to a child younger than 12 years old. Ask a doctor or pharmacist if this medicine is safe to use if you have: heart disease, high blood pressure, high cholesterol, diabetes, or if you smoke; a heart attack, stroke, or blood clot; stomach ulcers or bleeding; asthma; liver or kidney disease; fluid retention; or if you take aspirin to prevent heart attack or stroke. If you are , you should not take naproxen unless your doctor tells you to. Taking an NSAID during the last 20 weeks of can cause serious heart or kidney problems in the unborn baby and possible complications with your . It may not be safe to breastfeed while using this medicine. Ask your doctor about any risk. How should I take naproxen? Use exactly as directed on the label, or as prescribed by your doctor. Use the lowest dose that is effective in treating your condition. Shake the oral suspension (liquid) before you measure a dose. Measure a dose with the supplied measuring device (not a kitchen spoon). Take this medicine with food or milk if it upsets your stomach. Always follow directions on the medicine label about giving this medicine to a child. Naproxen doses are based on weight in children. Your child's dose needs may change if the child gains or loses weight. If you use naproxen long-term, you may need frequent medical tests. This medicine can affect the results of certain medical tests. Tell any doctor who treats you that you are using naproxen. Store at room temperature away from moisture, heat, and light. Keep the bottle tightly closed when not in use. What happens if I miss a dose? Since naproxen is used when needed, you may not be on a dosing schedule. Skip any missed dose if it's almost time for your next dose. Do not use two doses at one time. What happens if I overdose? Seek emergency medical attention or call the Poison Help line at . What should I avoid while taking naproxen? Avoid drinking alcohol. It may increase your risk of stomach bleeding. Avoid taking aspirin or other NSAIDs unless your doctor tells you to. Ask a doctor or pharmacist before using other medicines for pain, fever, swelling, or cold/flu symptoms. They may contain ingredients similar to naproxen (such as aspirin, ibuprofen, or ketoprofen). Ask your doctor before using an antacid, and use only the type your doctor recommends. Some antacids can make it harder for your body to absorb naproxen. What are the possible side effects of naproxen? Get emergency medical help if you have signs of an allergic reaction (runny or stuffy nose, wheezing or trouble breathing, hives, swelling in your face or throat) or a severe skin reaction (fever, sore throat, burning eyes, skin pain, red or purple skin rash with blistering and peeling). Stop using naproxen and seek medical treatment if you have a serious drug reaction that can affect many parts of your body. Symptoms may include skin rash, fever, swollen glands, muscle aches, severe weakness, unusual bruising, or yellowing of your skin or eyes. Get emergency medical help if you have signs of a heart attack or stroke: chest pain spreading to your jaw or shoulder, sudden numbness or weakness on one side of the body, slurred speech, leg swelling, feeling short of breath. Stop using naproxen and call your doctor at once if you have: shortness of breath (even with mild exertion); swelling or rapid weight gain; the first sign of any skin rash or blister, no matter how mild; signs of stomach bleeding--bloody or tarry stools, coughing up blood or vomit that looks like coffee grounds; liver problems--nausea, upper stomach pain, loss of appetite, dark urine, kelly-colored stools, jaundice (yellowing of the skin or eyes); kidney problems--little or no urination, painful urination, swelling in your feet or ankles; or low red blood cells (anemia)--pale skin, unusual tiredness, feeling light-headed or short of breath, cold hands and feet. Common side effects may include: headache; indigestion, heartburn, stomach pain; or flu symptoms; This is not a complete list of side effects and others may occur. Call your doctor for medical advice about side effects. You may report side effects to FDA at 8-633-VXO-7988. What other drugs will affect naproxen? Ask your doctor before using naproxen if you take an antidepressant. Taking certain antidepressants with an NSAID may cause you to bruise or bleed easily. Ask a doctor or pharmacist before using naproxen with any other medications, especially: other NSAIDs or salicylates (diflunisal, salsalate); antacids and sucralfate; cholestyramine; cyclosporine; digoxin; lithium; methotrexate; pemetrexed; probenecid; warfarin (Coumadin, Jantoven) or similar blood thinners; a diuretic or 'water pill'; or heart or blood pressure medication. This list is not complete. Other drugs may affect naproxen, including prescription and ffvl-aqw-gmdyzyb medicines, vitamins, and herbal products. Not all possible drug interactions are listed here. Where can I get more information? Your pharmacist can provide more information about naproxen. Remember, keep this and all other medicines out of the reach of children, never share your medicines with others, and use this medication only for the indication prescribed. Every effort has been made to ensure that the information provided by [employer]. [employer]') is accurate, up-to-date, and complete, but no guarantee is made to that effect. Drug information contained herein may be time sensitive. [employer] information has been compiled for use by healthcare practitioners and consumers in the [place] and therefore [employer] does not warrant that uses outside of the [place] are appropriate, unless specifically indicated otherwise. [employer]'s drug information does not endorse drugs, diagnose patients or recommend therapy. [employer] drug information is an informational resource designed to assist licensed healthcare practitioners in caring for their patients and/or to serve consumers viewing this service as a supplement to, and not a substitute for, the expertise, skill, knowledge and judgment of healthcare practitioners. The absence of a warning for a given drug or drug combination in no way should be construed to indicate that the drug or drug combination is safe, effective or appropriate for any given patient. [employer] does not assume any responsibility for any aspect of healthcare administered with the aid of information [employer] provides. The information contained herein is not intended to cover all possible uses, directions, precautions, warnings, drug interactions, allergic reactions, or adverse effects. If you have questions about the drugs you are taking, check with your doctor, nurse or pharmacist. Copyright 3821-0922 [employer]. Version: 20.. Revision Date: 12/22/2021. Education Materials Migraine Headache Migraine headaches are [...] of your face Difficulty talking or seeing 8570-5676 [employer]. [address] [place] [address]. All rights reserved. This information is not intended as a substitute for professional medical care. Always follow your healthcare professional's instructions. Additional Information VACCINATE! IT SAVES LIVES! Members of the community who have not yet received the COVID-19 vaccine and would like to receive it can visit one of [facility] vaccine clinics. There are many vaccine clinic locations within the [facility]. For locations and available times, please visit [email or web address] It is important to note that some COVID mobile vaccine clinics are held outdoors and may be canceled in rainy or stormy conditions. To learn more about pediatric vaccinations (ages 5-11), we invite you to visit the [facility] webpage. [email or web address] [id number] To learn more about the COVID-19 vaccine, we invite you to visit the CDC website for a list of frequently asked questions. https://www.cdc.gov/coronavirus/2 019-ncov/vaccines/faq.html [facility] Patient Portal Access Instructions: Stay connected with your healthcare team and access your personal medical information anytime with the [facility] Patient Portal. If you would like a full copy of your medical records please contact the [facility] Medical Records Department Tuesday through Tuesday between 8a.m. and 4:30p.m. Please follow the directions below to access the portal: 1.Access the email account you provided upon [facility] to the [facility].2.Look for an invitation email from [facility].3.Open the email and access the invitation link: Accept Invitation to [facility]4.Fill in the required julian to create your account. Sign into [email or web address] with your username and password that you [...] you will allow to register on the [facility] Patient Portal for access to your information. You can also access the [facility] Patient Portal on the [employer]. Simply click on Health Records under Health Data and then click on the [email or web address] logo. HOW TO SAFELY DISPOSE OF PRESCRIPTION [...] Call your local pharmacy or go to [email or web address] to find one close to you.3.Make use of household items: Use cat litter or old coffee grounds to dispose medications if other options are not available. Mix your drugs with these household products, seal them in an airtight container and throw it into the garbage. Call [facility]: [phone] to be sure your drugs can be [...] Education Materials HEADACHE, Migraine (Classical) Medication Leaflets prochlorperazine (oral/injection), naproxen My discharge plan and instructions have been reviewed and explained to me and I,DONNIE MALDONADO M understand my current condition and have read and understand these discharge instructions. I have received a written copy of the plan/instructions. If I have questions, I am aware that I should contact my doctor. Patient/Tunnel Mucker Signature: Date/Time: Relationship to Patient: ____ Witness Name/Signature: Date/Time: [facility] [place] 10-17-2022 Hospital Discharge instructions Patient Education 10/17/2022 07:13:01 Headache, Migraine, Classic Migraine Headache This often [...] of your face Difficulty talking or seeing [phone] [employer]. [address] [place] [address]. All rights reserved. This information is not intended as a substitute for professional medical care. Always follow your healthcare professional's instructions. Follow Up Care 10/17/2022 06:57:05 With:FANI BAEZ Address: [address] [place] [phone]- Business (1) When:2-4 days Comments:Schedule appointment as soon as possible [facility] 10-17-2022 Note Discharge Instructions Thank you for allowing [facility] to assist you with your healthcare needs. The following is important discharge information regarding your hospital visit. Diagnosis from Today's Visit Headache What to Do Next Instructions from Your Care Team No qualifying data available. Post Acute Orders No qualifying data available. You Need to Schedule the Following Appointments Follow Up with FANI BAEZ When Within 2-4 days Why: Schedule appointment as soon as possible Where: [address] [place] [phone]- Business (1) Allergies azithromycin Medications Please ask [...] needed for as needed for spasm Unchanged dicyclomine (dicyclomine 10 mg oral capsule) 1 cap by mouth Four (4) times a day Duration: 5 Days Unchanged doxycycline (doxycycline hyclate 100 mg oral [...] Days as directed on package labeling Unchanged pantoprazole (pantoprazole 40 mg oral enteric coated tablet) Unchanged rimegepant (Nurtec ODT 75 mg oral tablet, disintegrating) Unchanged topiramate (Topamax 50 mg oral tablet) [...] of your face Difficulty talking or seeing 0815-5834 [employer]. [address] [place] [address]. All rights reserved. This information is not intended as a substitute for professional medical care. Always follow your healthcare professional's instructions. Additional Information VACCINATE! IT SAVES LIVES! Members of the community who have not yet received the COVID-19 vaccine and would like to receive it can visit one of [facility] vaccine clinics. There are many vaccine clinic locations within the [facility]. For locations and available times, please visit [email or web address] [email or web address] It is important to note that some COVID mobile vaccine clinics are held outdoors and may be canceled in rainy or stormy conditions. To learn more about pediatric vaccinations (ages 5-11), we invite you to visit the [facility] webpage. https://www.[facility].org/pa ges/3677-Bykqv-Ezxhcmxwfnv-Freque lnvb-Suybx-Ygrdixccq.html To learn more about the COVID-19 vaccine, we invite you to visit the CDC website for a list of frequently asked questions. https://www.cdc.gov/coronavirus/2 019-ncov/vaccines/faq.html [facility] Patient Portal Access Instructions: Stay connected with your healthcare team and access your personal medical information anytime with the [facility] Patient Portal. If you would like a full copy of your medical records please contact the [facility] Medical Records Department Tuesday through Tuesday between 8a.m. and 4:30p.m. Please follow the directions below to access the portal: 1.Access the email account you provided upon [facility] the [facility].2.Look for an invitation email from [facility].3.Open the email and access the invitation link: Accept Invitation to [facility]4.Fill in the required julian to create your account. Sign into [email or web address] with your username and password that you [...] you will allow to register on the [facility] Patient Portal for access to your information. You can also access the [facility] Patient Portal on the [employer]. Simply click on Health Records under Health Data and then click on the [email or web address].sg logo. HOW TO SAFELY DISPOSE OF PRESCRIPTION [...] Call your local pharmacy or go to [email or web address] to find one close to you.3.Make use of household items: Use cat litter or old coffee grounds to dispose medications if other options are not available. Mix your drugs with these household products, seal them in an airtight container and throw it into the garbage. Call [facility]: [phone] to be sure your drugs can be [...] been reviewed and explained to me and I,DONNIE MALDONADO understand my current condition and have read and understand these discharge instructions. I have received a written copy of the plan/instructions. If I have questions, I am aware that I should contact my doctor. Patient/Tunnel Mucker Signature: Date/Time: Relationship to Patient: ____ Witness Name/Signature: Date/Time: [facility] 09-12-2022 History of Present illness Narrative This note was created using NoteWriter. Subjective Donnie Maldonado is a 22 year old female. TRIAGE NOTE Chief complaint: migraine Reports headache started yesterday. Rates pain 10 out of 10. Denies aura + nausea Has taken Tylenol and Motrin last dose last night, Has a known history of migraines. Went to [facility] prior and states the wait was too long therefore came to [facility] evaluation. Patient states she ran out of her Nurtec prescription. Recommend a higher level of care for further evaluation and treatment of migraine. Pt appears to be in pain, lights were dimmed in room. Redirected to local ER. Pt agreeable with plan. The history is provided by the patient. Headache Review of Systems Neurological: Positive for headaches. documented in this encounter [facility] 09-12-2022 Instructions Marysol Alexander APRN.CNP - 09/12/2022 1:15 PM EST It's my medical opinion that your condition requires further evaluation at a higher level of care than we are able to offer in [facility] care, therefore I am referring you to the emergency room. documented in this encounter [facility] 08-25-2022 Hospital Discharge instructions Patient Education 08/24/2022 23:27:21 Headache, Unspecified Headache, Unspecified A number of [...] face You have trouble talking or seeing [phone] [employer]. [address] [place] [address]. All rights reserved. This information is not intended as a substitute for professional medical care. Always follow your healthcare professional's instructions. Follow Up Care 08/24/2022 21:25:45 With:ROD HULL Address: When:2-4 days With:FANI BAEZ MD, Surgery Address: [address] [place] [phone]- When:2-4 days [facility] 08-24-2022 Note Discharge Instructions Thank you for allowing [facility] to assist you with your healthcare needs. The following is important discharge information regarding your hospital visit. Diagnosis from Today's Visit Headache What to Do Next Instructions from Your Care Team No qualifying data available. Post Acute Orders No qualifying data available. You Need to Schedule the Following Appointments Follow Up with [facility] When Within 2-4 days Where: Follow Up with FANI BAEZ MD, Surgery When Within 2-4 days Where: [address] [place] [address]- Allergies azithromycin Medications Please ask your primary [...] needed for as needed for spasm Unchanged dicyclomine (dicyclomine 10 mg oral capsule) 1 cap by mouth Four (4) times a day Duration: 5 Days Unchanged doxycycline (doxycycline hyclate 100 mg oral [...] face You have trouble talking or seeing [phone] [employer]. [address] [place] [address]. All rights reserved. This information is not intended as a substitute for professional medical care. Always follow your healthcare professional's instructions. Additional Information VACCINATE! IT SAVES LIVES! Members of the community who have not yet received the COVID-19 vaccine and would like to receive it can visit one of [facility] vaccine clinics. There are many vaccine clinic locations within the [facility]. For locations and available times, please visit www.[email or web address] rg. It is important to note that some COVID mobile vaccine clinics are held outdoors and may be canceled in rainy or stormy conditions. To learn more about pediatric vaccinations (ages 5-11), we invite you to visit the [facility] webpage. https://www.[facility].org/pa ges/4616-Dlawj-Gisahckiazn-Freque sxvx-Nktlf-Qllkwqqwc.html To learn more about the COVID-19 vaccine, we invite you to visit the [facility] website for a list of frequently asked questions. [email or web address] oi-[email or web address]/[email or web address]-Ovn quently_[email or web address]-Questions.pdf [facility] Patient Portal Access Instructions: Stay connected with your healthcare team and access your personal medical information anytime with the [facility] Patient Portal. If you would like a full copy of your medical records please contact the [facility] Medical Records Department Tuesday through Tuesday between 8a.m. and 4:30p.m. Please follow the directions below to access the portal: 1.Access the email account you provided upon [facility].2.Look for an invitation email from [facility].3.Open the email and access the invitation link: Accept Invitation to [facility]4.Fill in the required julian to create your account. Sign into [email or web address] with your username and password that you [...] you will allow to register on the [facility] Patient Portal for access to your information. You can also access the [facility] Patient Portal on the [employer]. Simply click on Health Records under Health Data and then click on the [email or web address].sg logo. HOW TO SAFELY DISPOSE OF PRESCRIPTION [...] Call your local pharmacy or go to [email or web address] to find one close to you.3.Make use of household items: Use cat litter or old coffee grounds to dispose medications if other options are not available. Mix your drugs with these household products, seal them in an airtight container and throw it into the garbage. Call [facility]: [phone] to be sure your drugs can be [...] been reviewed and explained to me and I,DONNIE MALDONADO understand my current condition and have read and understand these discharge instructions. I have received a written copy of the plan/instructions. If I have questions, I am aware that I should contact my doctor. Patient/Tunnel Mucker Signature: Date/Time: Relationship to Patient: ____ Witness Name/Signature: Date/Time: [facility] 08-15-2022 History of Present illness Narrative This note was created using Emprivoriter. Subjective Donnie Maldonado is a 22 year old female. HPI Presents with a Migraine BAUER (MGHA). That began on 08/14/2022. She states that her Amovig did not work. PAST MEDICAL HISTORY Diagnosis Date Achilles bursitis or tendinitis 06/16/2009 Concussion 04/21/2015 Depression 04/2009, 04/2015 The depression 04/2015 was [...] removed TONSILLECTOMY & ADENOIDECTOMY <AGE 12 ALLERGIES Sumatriptan and Zpak [Azithromycin] MEDICATIONS pantoprazole DR (PROTONIX) 40 mg tablet Take 1 tablet by mouth once daily. levonorgestrel-ethinyl estradiol 0.15 mg-30 mcg (91) per [...] Take 1 tablet by mouth once daily. AIMOVIG AUTOINJECTOR 140 mg/mL auto-injector ondansetron orally disintegrating (ZOFRAN ODT) 4 mg disintegrating tablet dissolve 1 tablet ON TONGUE every 4 hours if needed for nausea and vomiting topiramate (TOPAMAX) 50 mg tablet Take 1 tablet by mouth twice daily. FAMILY HISTORY Problem Relation Age of Onset Diabetes Mother Cancer Mother skin- Unknonw type Hypertension Father Psychiatry Father Diabetes Maternal Grandmother Asthma Maternal Grandmother Hypertension Maternal Grandmother Hypertension Paternal Grandmother Lipids Paternal Grandmother Diabetes Paternal Grandfather Hypertension Paternal Grandfather Cancer Paternal Grandfather Lympoma- leukemia other (leukemia) Paternal Grandfather Anesthesia Problems No Family History Social History Tobacco Use Smoking status: Never Smokeless tobacco: Never Vaping Use Vaping Use: Never used Substance Use Topics Alcohol use: No Drug use: No Review of Systems Constitutional: Positive for fatigue. Negative for chills, diaphoresis and fever. HENT: Negative for trouble swallowing. Eyes: Positive for photophobia. Respiratory: Negative for chest tightness and shortness of breath. Cardiovascular: Negative for chest pain. Gastrointestinal: Positive for nausea. Negative for abdominal pain, constipation, diarrhea and vomiting. Musculoskeletal: Negative for arthralgias and myalgias. Neurological: Positive for light-headedness and headaches. Negative for dizziness, syncope, speech difficulty and weakness. Psychiatric/Behavioral: Negative for confusion. The patient is not nervous/anxious. All other systems reviewed and are negative. Objective LMP (LMP Unknown) Physical Exam Constitutional: Appearance: Normal appearance. She is obese. She is ill-appearing. Cardiovascular: Rate and Rhythm: Normal rate and regular rhythm. Pulses: Normal pulses. Heart sounds: Normal heart sounds. Pulmonary: Effort: Pulmonary effort is normal. Breath sounds: Normal breath sounds. Musculoskeletal: General: Normal range of motion. Skin: General: Skin is warm and dry. Neurological: General: No focal deficit present. Mental Status: She is alert and oriented to person, place, and time. Psychiatric: Mood and Affect: Mood normal. Assessment and Plan ASSESSMENT/PLAN: 1. Migraine without aura, not intractable, with status migrainosus - ICD9: 346.12, ICD10: G43.[address], operate machinery. Family member present to drive patient home. Discharged in good condition. Patient monitored x 15 minutes after injection. - KETOROLAC 60 MG/2 ML INTRAMUSCULAR SOLUTION - ONDANSETRON 4 MG DISINTEGRATING TABLET - DIPHENHYDRAMINE 50 MG CAPSULE Casey Harry PA-C documented in this encounter [facility] 08-02-2022 History of Present illness Narrative Follow [...] pain Interval Events: Subjective: Patient seen in [facility] for above symptoms and dehydration Component [...] Abs Lymph 1.00 - 4.00 k/uL 2.39 Armstrong% % 5.0 Abs Armstrong <0.87 k/uL 0.30 Eosin% % 0.0 Abs Eosin <0.46 k/uL 0.00 Baso% % 0.0 Abs Baso <0.11 k/uL 0.00 Realym% % 1.0 Platelet Estimate Adequate Red Cell Morph Reviewed: unremarkable DTYPE Manual Color Yellow Yellow Clarity Clear Hazy (A) Glucose, Urine Negative Negative Bilirubin, Urine Negative Negative Ketones, Urine Negative 3+ (A) Specific [place], Ur 1.005 - 1.030 1.030 Hemoglobin/Blood,Ur Negative [...] FU EGD in [address] Live Patient's physician is fani Baez[place], [place] Visit length 18 minutes Greg Robles MD documented in this encounter [facility] 07-30-2022 History and physical note UPDATED [...] PAIN, N/V/D Medication reconciliation list reviewed in [facility]. Past medical history, past surgical history, social history and family history reviewed and updated in [facility]. ALLERGIES Allergies: Zpak [Azithromycin] Diarrhea Comment:Diarrhea & stomach pain SEE [facility] FOR VITALS BP 113/56 Pulse 66 Temp 36.3 C (97.3 F) (Tympanic) Resp 16 Ht 167.6 cm (5' 6) LMP (LMP Unknown) SpO2 100% BMI 35.83 [...] PA-C SIGNATURE: Indy Kelly PA-C PATIENT NAME: Donnie Maldonado DATE: 07/30/2022 TIME: 9:21 AM documented in this encounter [facility] 07-27-2022 Instructions Debbie Dickson PA-C - 07/27/2022 3:07 PM EST Images from the original note were not included. PATIENT PREOPERATIVE INSTRUCTIONS Emmanuelle Live DO has scheduled you for your procedure at this surgery center: [facility]: [phone] -- [place] [address]. Please read below carefully for your personalized [...] office. Blood Thinning Medications: Please follow Dr. Live's instructions regarding which bgox-ubx-gaowatl supplements and blood thinners you need to [...] Procedures: - YOU MUST HAVE A RESPONSIBLE DIVING JUDGE TAKE YOU HOME. A ENGINE ASSEMBLER OR SCRAP MATERIALS BUYER CANNOT BE MADE A RESPONSIBLE DIVING JUDGE. - We recommend that a responsible person [...] Advance Directive, please fax a copy to [phone] or email to for it to be [...] Debbie Dickson PA-C documented in this encounter [facility] 07-27-2022 History and physical note PREANESTHESIA CONSULT CLINIC TELEHEALTH VISIT Patient has been identified by name and date of : Yes This is a virtual visit using iDoc24 video visit. It require patient-provider interaction for the medical decision making as documented below. Reason for contact: PACC visit Accompanied by: her mother Surgeon: Emmanuelle Live DO Type of surgery: EGD Patient scheduled for surgery on 07/30/2022 . Surgery Location: [facility] Diagnosis: Preop examination (primary encounter diagnosis) Ht 5' 6.5[patient reported[ (1.69m) Wt 222 lb (100.7kg) BMI [...] 2022 2:50 PM documented in this encounter [facility] 07-23-[address] Robles Pt would like EGD order so she can get that done before follow up with you. Also she mentioned a test where she has to swallow barium . Pended orders. Please advise and order if appropriate. Susan Vitale LPN documented in this encounter [facility] 07-23-2022 Miscellaneous Notes Fax received with CT scan results from 07/16/2022. Scanned into chart documented in this encounter [facility] 07-21-2022 Miscellaneous Notes Scanned outside medical records into [employer]. Susan Vitale LPN documented in this encounter [facility] 07-21-2022 History of Present illness Narrative NAME: Donnie Maldonado New Patient Zoom Visit AGE: [age] [...] (FLONASE) 50 mcg/actuation nasal spray Use 1 Colt in each nostril once daily. ibuprofen (MOTRIN) [...] Past Histories independently gathered by the clinical application support analyst and the remaining scribed note accurately describes [...] night. She went to an ER in [facility] on 07[place]16/20[place], [place] abdomen /pelvis was performed which was [...] (POCT) Clear Slightly Cloudy Resulting Agency [facility] PHYSICAL EXAMINATION: General Appearance: Cooperative, [...] and EGD. Patient desires to go to [facility] Eventual referral to Headache Clinic [facility] in one week Visit length-25 minutes STAFF PHYSICIAN Greg Robles MD documented in this encounter [facility] 07-17-2022 Evaluation + Plan note Future Scheduled TestsMRI Brain w/o Contrast 07/17/22 [facility] 07-17-2022 Hospital Discharge instructions Patient Education 07/16/2022 22:51:43 Vomiting (Adult) Vomiting (Adult) Vomiting is a common symptom that may be due to different causes. These include gastroenteritis (stomach flu), food poisoning and gastritis. There are other [...] and water are not available, use alcohol-based screen operator to keep from spreading the infection to [...] Yellow color of the eyes or skin 0139-1801 [employer]. [address] [place] [address]. All rights reserved. This information is not intended as a substitute for professional medical care. Always follow your healthcare professional's instructions. Follow Up Care 07/16/2022 20:21:07 With:FANI BAEZ MD, Surgery Address: [address] [place] [address] [id number] When:2-4 days [facility] 07-16-2022 Note Discharge Instructions Thank you for allowing [facility] to assist you with your healthcare needs. The following is important discharge information regarding your hospital visit. Diagnosis from Today's Visit Pain passing urine What to Do Next Instructions from Your Care Team No qualifying data available. Post Acute Orders No qualifying data available. You Need to Schedule the Following Appointments Follow Up with FANI BAEZ MD, Surgery When Within 2-4 days Where: [address] [place] [phone]- Allergies azithromycin Medications Please ask your primary [...] due to different causes. These include gastroenteritis (stomach flu), food poisoning and gastritis. There are other [...] and water are not available, use alcohol-based screen operator to keep from spreading the infection to [...] Yellow color of the eyes or skin 1650-5701 [employer]. [address] [place] [address]. All rights reserved. This information is not intended as a substitute for professional medical care. Always follow your healthcare professional's instructions. Additional Information VACCINATE! IT SAVES LIVES! Members of the community who have not yet received the COVID-19 vaccine and would like to receive it can visit one of [facility] vaccine clinics. There are many vaccine clinic locations within the [facility]. For locations and available times, please visit [email or web address] rg. It is important to note that some COVID mobile vaccine clinics are held outdoors and may be canceled in rainy or stormy conditions. To learn more about pediatric vaccinations (ages 5-11), we invite you to visit the [facility] webpage. https://www.[facility].org/pa ges/9515-Jjhwx-Ojwdwpskrry-Freque rzha-Tmtlk-Rqvauuwpc.html To learn more about the COVID-19 vaccine, we invite you to visit the [employer] website for a list of frequently asked questions. [email or web address] [email or web address]-[email or web address] [facility] Patient Portal Access Instructions: Stay connected with your healthcare team and access your personal medical information anytime with the [facility] Patient Portal. If you would like a full copy of your medical records please contact the [facility] Medical Records Department Tuesday through Tuesday between 8a.m. and 4:30p.m. Please follow the directions below to access the portal: 1.Access the email account you provided upon [facility] the [facility].2.Look for an invitation email from [facility].3.Open the email and access the invitation link: Accept Invitation to [facility]4.Fill in the required julian to create your account. Sign into [email or web address] with your username and password that you [...] you will allow to register on the [facility] Patient Portal for access to your information. You can also access the [facility] Patient Portal on the [employer]. Simply click on Health Records under Health Data and then click on the Deal.com.sg logo. HOW TO SAFELY DISPOSE OF PRESCRIPTION [...] Call your local pharmacy or go to [email or web address] to find one close to you.3.Make use of household items: Use cat litter or old coffee grounds to dispose medications if other options are not available. Mix your drugs with these household products, seal them in an airtight container and throw it into the garbage. Call [facility]: [phone] to be sure your drugs can be [...] been reviewed and explained to me and I,DONNIE MALDONADO M understand my current condition and have read and understand these discharge instructions. I have received a written copy of the plan/instructions. If I have questions, I am aware that I should contact my doctor. Patient/Tunnel Mucker Signature: Date/Time: Relationship to Patient: ____ Witness Name/Signature: Date/Time: [facility] 07-16-2022 Note ORIGINAL EXAMINATION: CT OF THE ABDOMEN AND PELVIS WITHOUT LMJSGZTA91/2/2022 10:[address] ABDOMEN/PELVIS WITHOUT CONTRAST TECHNIQUE: [...] Interpreted by: Feliciano Sosa Preliminary Report By: Sandoval Nava Electronically signed By Feliciano Sosa Dictated Date: 07/16/2022 10:33:02 PM Prelim Date: 07/16/2022 10:39:06 PM Sign Date: 07/16/2022 10:49:48 PM Ordering Provider: [facility] 07-16-2022 Note ORIGINAL EXAMINATION: CT OF THE ABDOMEN AND PELVIS WITHOUT EBSDFLHE39/2/2022 10:[address] ABDOMEN/PELVIS WITHOUT CONTRAST TECHNIQUE: [...] Interpreted by: Feliciano Sosa Preliminary Report By: Sandoval Nava Electronically signed By Feliciano Sosa Dictated Date: 07/16/2022 10:33:02 PM Prelim Date: 07/16/2022 10:39:06 PM Sign Date: 07/16/2022 10:49:48 PM Ordering Provider: [facility] 07-16-2022 Instructions Consuelo Isaac PA-C - 07/16/2022 7:24 PM EST Please go to the emergency department for further evaluation and treatment. documented in this encounter [facility] 07-16-2022 History of Present illness Narrative Donnie Maldonado is a 22 year old female [...] (FLONASE) 50 mcg/actuation nasal spray Use 1 Colt in each nostril once daily. 1 Bottle [...] down water, popsicles, other fluids. Overall feels horrible. On exam, blood pressure slightly low on initial evaluation, recheck 106/70. Slightly tachycardic at 102. She is afebrile. She appears to not feel well. She does have flank pain on the right. Urinalysis shows ketones. Discussed with patient I am concerned for a pyelonephritis. I have recommended higher level of care. [facility]. Mother will drive her to the ED for further evaluation and treatment. Consuelo Isaac PA-C documented in this encounter [facility] 06-07-2022 Hospital Discharge instructions Patient Education [...] of your face Difficulty talking or seeing [phone] [employer] [place] [address]. All rights reserved. This information is not intended as a substitute for professional medical care. Always follow your healthcare professional's instructions. Follow Up Care 06/07/2022 07:18:03 With:Your neurologist Address: When:2-4 days With:FANI BAEZ MD, Surgery Address: [address] [place] [address]- When:2-4 days With:Go to emergency room if symptoms worsen Address:Unknown When:2-4 days [facility] 06-07-2022 Note Discharge Instructions Thank you for allowing [facility] to assist you with your healthcare needs. The following is important discharge information regarding your hospital visit. Diagnosis from Today's Visit Migraine Headache What to Do Next Instructions from Your Care Team No qualifying data available. Post Acute Orders No qualifying data available. You Need to Schedule the Following Appointments Follow Up with Your neurologist When Within 2-4 days Where: Follow Up with FANI BAEZ MD, Surgery When Within 2-4 days Where: [address] [place] [address] [phone]- Follow Up with Go to emergency room [...] of your face Difficulty talking or seeing [phone] [employer]. [address] [place] [address]. All rights reserved. This information is not intended as a substitute for professional medical care. Always follow your healthcare professional's instructions. Additional Information VACCINATE! IT SAVES LIVES! Members of the community who have not yet received the COVID-19 vaccine and would like to receive it can visit one of [facility] vaccine clinics. There are many vaccine clinic locations within the [facility]. For locations and available times, please visit www.gettheshot.[email or web address].[place].o rg. It is important to note that some COVID mobile vaccine clinics are held outdoors and may be canceled in rainy or stormy conditions. To learn more about pediatric vaccinations (ages 5-11), we invite you to visit the [facility] webpage. https://www.[facility].org/pa ges/4931-Tyzbf-Nihchnicgcn-Freque irbb-Nmazw-Ouquvbisq.html To learn more about the COVID-19 vaccine, we invite you to visit the Deal.com.sg website for a list of frequently asked questions. https://AccuVein/assets/Madeleine lu-vei-Lbzuygzv/ufkdt-Qhvnmnr-Dcb quently_Asked-Questions.pdf [facility] Patient Portal Access Instructions: Stay connected with your healthcare team and access your personal medical information anytime with the [facility] Patient Portal. If you would like a full copy of your medical records please contact the [facility] Medical Records Department Tuesday through Tuesday between 8a.m. and 4:30p.m. Please follow the directions below to access the portal: 1.Access the email account you provided upon [facility] the [facility].2.Look for an invitation email from [facility].3.Open the email and access the invitation link: Accept Invitation to [facility]4.Fill in the required julian to create your account. Sign into [email or web address] with your username and password that you [...] you will allow to register on the [facility] Patient Portal for access to your information. You can also access the [facility] Patient Portal on the [employer] ifeanyi. Simply click on Health Records under Health Data and then click on the Deal.com.sg logo. HOW TO SAFELY DISPOSE OF PRESCRIPTION [...] Call your local pharmacy or go to http://bit.Rewarder/3V6Ij2z to find one close to you.3.Make use of household items: Use cat litter or old coffee grounds to dispose medications if other options are not available. Mix your drugs with these household products, seal them in an airtight container and throw it into the garbage. Call [facility]: [phone] to be sure your drugs can be [...] been reviewed and explained to me and I,DONNIE MALDONADO M understand my current condition and have read and understand these discharge instructions. I have received a written copy of the plan/instructions. If I have questions, I am aware that I should contact my doctor. Patient/Tunnel Mucker Signature: Date/Time: Relationship to Patient: ____ Witness Name/Signature: Date/Time: [facility] 05-27-2022 Hospital Discharge instructions Patient Education 05/27/2022 [...] give plenty of fluids like water, juice, lemon-chilkoot soda, romi-yulisa, lemonade, or popsicles. Sports drinks [...] in a child 2 years or older. [phone] [employer]. [address] [place] [address]. All rights reserved. This information is not intended as a substitute for professional medical care. Always follow your healthcare professional's instructions. Follow Up Care 05/27/2022 03:14:38 With:FANI BAEZ Address: [address] [place] [phone]- Business (1) When:2-4 days Comments:Take Tylenol, ibuprofen for pain, use Sudafed Afrin nasal spray to help with the drainage and decrease pain, if no improvement in 24 to 48 hours or you develop fever then start antibiotics. Be sure to finish antibiotics once you start them. Follow-up with your doctor. [facility] 05-27-2022 Note Discharge Instructions Thank you for allowing [facility] to assist you with your healthcare needs. The following is important discharge information regarding your hospital visit. Diagnosis from Today's Visit Ear pain Otitis media What to Do Next Instructions from Your Care Team No qualifying data available. Post Acute Orders No qualifying data available. You Need to Schedule the Following Appointments Follow Up with FANI BAEZ When Within 2-4 days Why: Take Tylenol, ibuprofen for pain, use Sudafed Afrin nasal spray to help with the drainage and decrease pain, if no improvement in 24 to 48 hours or you develop fever then start antibiotics. Be sure to finish antibiotics once you start them. Follow-up with your doctor. Where: [place] [address] [facility] (1) Allergies azithromycin Medications Please ask your [...] give plenty of fluids like water, juice, lemon-chilkoot soda, romi-yulisa, lemonade, or popsicles. Sports drinks [...] in a child 2 years or older. 8318-1597 [employer]. [address] [place] [address]. All rights reserved. This information is not intended as a substitute for professional medical care. Always follow your healthcare professional's instructions. Additional Information VACCINATE! IT SAVES LIVES! Members of the community who have not yet received the COVID-19 vaccine and would like to receive it can visit one of [facility] vaccine clinics. There are many vaccine clinic locations within the [facility]. For locations and available times, please visit www.gettheshot.coronavirus.[place].o rg. It is important to note that some COVID mobile vaccine clinics are held outdoors and may be canceled in rainy or stormy conditions. To learn more about pediatric vaccinations (ages 5-11), we invite you to visit the [facility] webpage. https://www.[facility].org/pa ges/3332-Yzhgv-Etetwldmifr-Freque dktf-Qiipq-Hakmvnbzc.html To learn more about the COVID-19 vaccine, we invite you to visit the Deal.com.sg website for a list of frequently asked questions. https://Poliglota.Epigami/assets/Madeleine sg-rrd-Oxqlvetr/xkalv-Nppxlus-Vaz quently_Asked-Questions.pdf [facility] Patient Portal Access Instructions: Stay connected with your healthcare team and access your personal medical information anytime with the [facility] Patient Portal. If you would like a full copy of your medical records please contact the [facility] Medical Records Department Tuesday through Tuesday between 8a.m. and 4:30p.m. Please follow the directions below to access the portal: 1.Access the email account you provided upon [facility].2.Look for an invitation email from [facility].3.Open the email and access the invitation link: Accept Invitation to [facility]ated4.Fill in the required julian to create your account. Sign into [email or web address] with your username and password that you [...] you will allow to register on the [facility] Patient Portal for access to your information. You can also access the [facility] Patient Portal on the [employer]. Simply click on Health Records under Health Data and then click on the Deal.com.sg logo. HOW TO SAFELY DISPOSE OF PRESCRIPTION [...] Call your local pharmacy or go to http://Admaxim.Rewarder/[email or web address] to find one close to you.3.Make use of household items: Use cat litter or old coffee grounds to dispose medications if other options are not available. Mix your drugs with these household products, seal them in an airtight container and throw it into the garbage. Call [facility]: [phone] to be sure your drugs can be [...] been reviewed and explained to me and I,DONNIE MALDONADO M understand my current condition and have read and understand these discharge instructions. I have received a written copy of the plan/instructions. If I have questions, I am aware that I should contact my doctor. Patient/Tunnel Mucker Signature: Date/Time: Relationship to Patient: ____ Witness Name/Signature: Date/Time: [facility] 05-21-2022 Hospital Discharge instructions Patient Education 05/21/2022 [...] of your face Difficulty talking or seeing [phone] [employer]. [address] [place] [address]. All rights reserved. This information is not intended as a substitute for professional medical care. Always follow your healthcare professional's instructions. Follow Up Care 05/21/2022 07:46:13 With:Follow up with primary care provider Address:Unknown When:2-4 days [facility] 05-21-2022 Note Discharge Instructions Thank you for allowing [facility] to assist you with your healthcare needs. [...] of your face Difficulty talking or seeing [phone] [employer]. [address] [place] [address]. All rights reserved. This information is not intended as a substitute for professional medical care. Always follow your healthcare professional's instructions. Additional Information VACCINATE! IT SAVES LIVES! Members of the community who have not yet received the COVID-19 vaccine and would like to receive it can visit one of [facility] vaccine clinics. There are many vaccine clinic locations within the [facility]. For locations and available times, please visit www.gettheshot.[email or web address].[place].o rg. It is important to note that some COVID mobile vaccine clinics are held outdoors and may be canceled in rainy or stormy conditions. To learn more about pediatric vaccinations (ages 5-11), we invite you to visit the [facility] webpage. https://www.[facility].org/pa ges/3041-Zjwzk-Oofbvstztbu-Freque pqbm-Ainom-Moaltmuqv.html To learn more about the COVID-19 vaccine, we invite you to visit the [facility] website for a list of frequently asked questions. https://sunnyvaleFlypaper/assets/Madeleine gy-uxv-Kedekmtu/fuhil-Qaowmsf-Vik quently_Asked-Questions.pdf [facility] Patient Portal Access Instructions: Stay connected with your healthcare team and access your personal medical information anytime with the [facility] Patient Portal. If you would like a full copy of your medical records please contact the [facility] Medical Records Department Tuesday through Tuesday between 8a.m. and 4:30p.m. Please follow the directions below to access the portal: 1.Access the email account you provided upon [facility].2.Look for an invitation email from [facility].3.Open the email and access the invitation link: Accept Invitation to [facility] Plated4.Fill in the required julian to create your account. Sign into [email or web address] with your username and password that you [...] you will allow to register on the [facility] Portal for access to your information. You can also access the [facility] Patient Portal on the Ad[employer] ifeanyi. Simply click on Health Records under Health Data and then click on the [facility] logo. HOW TO SAFELY DISPOSE OF PRESCRIPTION [...] Call your local pharmacy or go to http://bit.ly/2S8Yj3l to find one close to you.3.Make use of household items: Use cat litter or old coffee grounds to dispose medications if other options are not available. Mix your drugs with these household products, seal them in an airtight container and throw it into the garbage. Call [facility]: [phone] to be sure your drugs can be [...] been reviewed and explained to me and I,DONNIE MALDONADO M understand my current condition and have read and understand these discharge instructions. I have received a written copy of the plan/instructions. If I have questions, I am aware that I should contact my doctor. Patient/Tunnel Mucker Signature: Date/Time: Relationship to Patient: ____ Witness Name/Signature: Date/Time: [facility] 05-01-2022 History of Present illness Narrative This note was created using Emprivor[employer]. Subjective Donnie Maldonado is a 22 year old female. [...] (FLONASE) 50 mcg/actuation nasal spray Use 1 Colt in each nostril once daily. ibuprofen (MOTRIN) [...] Assessment and Plan documented in this encounter [facility] 04-17-2022 Hospital Discharge instructions Patient Education [...] face You have trouble talking or seeing [phone] [employer]. [address] [place] [address]. All rights reserved. This information is not intended as a substitute for professional medical care. Always follow your healthcare professional's instructions. Follow Up Care 04/17/2022 01:01:55 With:FANI BAEZ MD, Surgery Address: [address] [place] [id number]- When:2-4 days [facility] 04-17-2022 Note Discharge Instructions Thank you for allowing [facility] to assist you with your healthcare needs. The following is important discharge information regarding your hospital visit. Diagnosis from Today's Visit Headache What to Do Next Instructions from Your Care Team No qualifying data available. Post Acute Orders No qualifying data available. You Need to Schedule the Following Appointments Follow Up with FANI BAEZ MD, Surgery When Within 2-4 days Where: [address] [place] [phone]- Allergies azithromycin Medications Please ask your primary [...] face You have trouble talking or seeing [phone] [employer]. [address] [place] [address]. All rights reserved. This information is not intended as a substitute for professional medical care. Always follow your healthcare professional's instructions. Additional Information VACCINATE! IT SAVES LIVES! Members of the community who have not yet received the COVID-19 vaccine and would like to receive it can visit one of [facility] vaccine clinics. There are many vaccine clinic locations within the [facility]. For locations and available times, please visit www.gettheshot.[email or web address].[email or web address] rg. It is important to note that some COVID mobile vaccine clinics are held outdoors and may be canceled in rainy or stormy conditions. To learn more about pediatric vaccinations (ages 5-11), we invite you to visit the [facility] webpage. https://www.[facility].org/pa ges/3712-Kmtyx-Sfqcfginnes-Freque qsmg-Xpnif-Vtfgyyymz.html To learn more about the COVID-19 vaccine, we invite you to visit the [facility] website for a list of frequently asked questions. https://marck.org/assets/Madeleine xo-rni-Tdvplbhj/fnbii-Scklctg-Oms quently_Asked-Questions.pdf [facility] Patient Portal Access Instructions: Stay connected with your healthcare team and access your personal medical information anytime with the [facility] Patient Portal. If you would like a full copy of your medical records please contact the [facility] Medical Records Department Tuesday through Tuesday between 8a.m. and 4:30p.m. Please follow the directions below to access the portal: 1.Access the email account you provided upon [facility].2.Look for an invitation email from [facility].3.Open the email and access the invitation link: Accept Invitation to [facility]4.Fill in the required julian to create your account. Sign into [email or web address] with your username and password that you [...] you will allow to register on the [facility] Patient Portal for access to your information. You can also access the [facility] Patient Portal on the [employer] ifeanyi. Simply click on Health Records under Health Data and then click on the Deal.com.sg logo. HOW TO SAFELY DISPOSE OF PRESCRIPTION [...] Call your local pharmacy or go to http://Admaxim.Rewarder/3S1Yc6h to find one close to you.3.Make use of household items: Use cat litter or old coffee grounds to dispose medications if other options are not available. Mix your drugs with these household products, seal them in an airtight container and throw it into the garbage. Call [facility]: [phone] to be sure your drugs can be [...] been reviewed and explained to me and I,DONNIE MALDONADO M understand my current condition and have read and understand these discharge instructions. I have received a written copy of the plan/instructions. If I have questions, I am aware that I should contact my doctor. Patient/Tunnel Mucker Signature: Date/Time: Relationship to Patient: ____ Witness Name/Signature: Date/Time: [facility] 03-21-2022 Hospital Discharge instructions Patient Education 03/20/2022 [...] of your face Difficulty talking or seeing [phone] [employer]. [address] [place] [address], [place] [address]. All rights reserved. This information is not intended as a substitute for professional medical care. Always follow your healthcare professional's instructions. Follow Up Care 03/20/2022 21:57:03 With:FANI BAEZ MD, Surgery Address: [address] [place] [address]- When:2-4 days [facility] 03-20-2022 Note Discharge Instructions Thank you for allowing [facility] to assist you with your healthcare needs. The following is important discharge information regarding your hospital visit. Diagnosis from Today's Visit Migraine What to Do Next Instructions from Your Care Team No qualifying data available. Post Acute Orders No qualifying data available. You Need to Schedule the Following Appointments Follow Up with FANI BAEZ MD, Surgery When Within 2-4 days Where: [address] [place] [address]- Allergies azithromycin Medications Please ask your primary [...] of your face Difficulty talking or seeing [phone] [employer]. [address] [place] [address], [place] [address]. All rights reserved. This information is not intended as a substitute for professional medical care. Always follow your healthcare professional's instructions. Additional Information VACCINATE! IT SAVES LIVES! Members of the community who have not yet received the COVID-19 vaccine and would like to receive it can visit one of [facility] vaccine clinics. There are many vaccine clinic locations within the [facility]. For locations and available times, please visit www.[facility].coronavirus.[place].o rg. It is important to note that some COVID mobile vaccine clinics are held outdoors and may be canceled in rainy or stormy conditions. To learn more about pediatric vaccinations (ages 5-11), we invite you to visit the [facility] webpage. https://www.HZOs.org/pa ges/8850-Mjqia-Nftotrwekpa-Freque kpcj-Doilr-Frchozmyk.html To learn more about the COVID-19 vaccine, we invite you to visit the [facility] website for a list of frequently asked questions. https://[email or web address]/assets/Madeleine bk-htn-Bzxdlovx/kiglh-Rylevgq-Ssy quently_Asked-Questions.pdf [facility] Patient Portal Access Instructions: Stay connected with your healthcare team and access your personal medical information anytime with the [facility] Patient Portal. If you would like a full copy of your medical records please contact the [facility] Medical Records Department Tuesday through Tuesday between 8a.m. and 4:30p.m. Please follow the directions below to access the portal: 1.Access the email account you provided upon registration to the hospital.2.Look for an invitation email from [facility].3.Open the email and access the invitation link: Accept Invitation to [facility]4.Fill in the required julian to create your account. Sign into [email or web address] with your username and password that you [...] you will allow to register on the [facility] Patient Portal for access to your information. You can also access the [facility] Patient Portal on the Adwanted ifeanyi. Simply click on Health Records under Health Data and then click on the [email or web address] logo. HOW TO SAFELY DISPOSE OF PRESCRIPTION [...] Call your local pharmacy or go to [email or web address] to find one close to you.3.Make use of household items: Use cat litter or old coffee grounds to dispose medications if other options are not available. Mix your drugs with these household products, seal them in an airtight container and throw it into the garbage. Call [facility]: [phone] to be sure your drugs can be [...] been reviewed and explained to me and I,DONNIE MALDONADO M understand my current condition and have read and understand these discharge instructions. I have received a written copy of the plan/instructions. If I have questions, I am aware that I should contact my doctor. Patient/Tunnel Mucker Signature: Date/Time: Relationship to Patient: ____ Witness Name/Signature: Date/Time: [facility] 02-07-2022 Hospital Discharge instructions Patient Education 02/06/2022 [...] of your face Difficulty talking or seeing 4126-5277 [employer]. [address] [place] [address], [place] [address]. All rights reserved. This information is not intended as a substitute for professional medical care. Always follow your healthcare professional's instructions. Follow Up Care 02/06/2022 21:46:29 With:FANI BAEZ MD, Surgery Address: [address] [place] [address]- When:2-4 days [facility] 11-27-2021 Hospital Discharge instructions Patient Education 11/26/2021 [...] of your face Difficulty talking or seeing 9337-2497 [employer]. [address] [place] [address]. All rights reserved. This information is not [...] hot shower. Use medicines Aspirin or other pdhs-fcd-cwptaum pain medicines, such as ibuprofen and acetaminophen, [...] the worst headache you have ever had. 2125-[address] [employer] [place] [address]. All rights reserved. This information is not intended as a substitute for professional medical care. Always follow your healthcare professional's instructions. Follow Up Care 11/26/2021 22:29:06 With:FANI BAEZ MD, Surgery Address: [address] [place] [address]- When:2-4 days [facility] 06-28-2021 Hospital Discharge instructions Patient Education 06/28/2021 [...] footstool. You can read or keep your child company to make it a positive experience. [...] in a child 2 years or older. 7649-4951 [employer]. [address] [place] [address], [place] [address]. All rights reserved. This information is not [...] or water and you are getting dehydrated 4407-1096 [employer]. [address] [place] [address]. All rights reserved. This information is not intended as a substitute for professional medical care. Always follow your healthcare professional's instructions. 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 Abdominal pain, unspecified site 06/15/2007 09/29/2011 Other congenital anomaly of lower limb, 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 09/29/2011 documented as of this encounter (statuses as of 05/01/2022) [address]02-2009 History of Past illness Narrative* Problem Noted Date Resolved Date 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 Abdominal pain, unspecified site 06/15/2007 09/29/2011 Other congenital anomaly of lower limb, 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 09/29/2011 documented as of this encounter (statuses as of 07/16/2022) [address]-2009 History of Past illness Narrative* Problem Noted Date Resolved Date 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 Abdominal pain, unspecified site 06/15/2007 09/29/2011 Other congenital anomaly of lower limb, 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 09/29/2011 documented as of this encounter (statuses as of 07/21/2022) [address]2009 History of Past illness Narrative* Problem Noted Date Resolved Date 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 Abdominal pain, unspecified site 06/15/2007 09/29/2011 Other congenital anomaly of lower limb, 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 09/29/2011 documented as of this encounter (statuses as of 07/21/2022) [address]2009 History of Past illness Narrative* Problem Noted Date Resolved Date 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 Abdominal pain, unspecified site 06/15/2007 09/29/2011 Other congenital anomaly of lower limb, 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 09/29/2011 documented as of this encounter (statuses as of 07/23/2022) [address]2009 History of Past illness Narrative* Problem Noted Date Resolved Date 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 Abdominal pain, unspecified site 06/15/2007 09/29/2011 Other congenital anomaly of lower limb, 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 09/29/2011 documented as of this encounter (statuses as of 07/23/2022) [address]2009 History of Past illness Narrative* Problem Noted Date Resolved Date 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 Abdominal pain, unspecified site 06/15/2007 09/29/2011 Other congenital anomaly of lower limb, 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 09/29/2011 documented as of this encounter (statuses as of 07/27/2022) [address]2009 History of Past illness Narrative* Problem Noted Date Resolved Date 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 Abdominal pain, unspecified site 06/15/2007 09/29/2011 Other congenital anomaly of lower limb, 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 09/29/2011 documented as of this encounter (statuses as of 07/31/2022) [place] [address]-02-2009 History of Past illness Narrative* Problem Noted Date Resolved Date 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 Abdominal pain, unspecified site 06/15/2007 09/29/2011 Other congenital anomaly of lower limb, 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 09/29/2011 documented as of this encounter (statuses as of 08/02/2022) [place] [address]-02-2009 History of Past illness Narrative* Problem Noted Date Resolved Date 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 Abdominal pain, unspecified site 06/15/2007 09/29/2011 Other congenital anomaly of lower limb, 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 09/29/2011 documented as of this encounter (statuses as of 08/04/2022) [place] [address]-02-2009 History of Past illness Narrative* Problem Noted Date Resolved Date 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 Abdominal pain, unspecified site 06/15/2007 09/29/2011 Other congenital anomaly of lower limb, 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 09/29/2011 documented as of this encounter (statuses as of 08/19/2022) [facility] History of Past illness Narrative* Problem Noted Date Resolved Date 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 Abdominal pain, unspecified site 06/15/2007 09/29/2011 Other congenital anomaly of lower limb, 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 09/29/2011 documented as of this encounter (statuses as of 09/12/2022) [facility] No data available for this section [facility] Evaluation + Plan note Future Appointments Appointment Date:07/17/2022 08:00:00 AM Scheduled Provider: Location:[facility] Appointment Type:MRI Brain w/o Contrast Diagnostic Tests Pending * Urine Culture 07/16/22 Future Scheduled Tests Radiology* MRI Brain w/o Contrast 07/17/22 [facility] Evaluation note* Diagnosis Bacterial sinusitis- Primary Unspecified sinusitis (chronic) [facility] Diagnosis Dysuria- Primary Acute pyelonephritis Acute pyelonephritis without lesion of renal medullary necrosis [facility] Diagnosis Gastroesophageal reflux disease, unspecified whether esophagitis present- Primary RUQ abdominal pain Abdominal pain, right upper quadrant Dehydration Diarrhea, unspecified type Hiatal hernia Diaphragmatic hernia without mention of obstruction or gangrene Headaches [facility] Diagnosis Gastroesophageal reflux disease, unspecified whether esophagitis present- Primary [facility] Diagnosis Preop examination- Primary Preoperative examination, unspecified [facility] Diagnosis Gastroesophageal reflux disease, unspecified whether esophagitis present [facility] Diagnosis Gastroesophageal reflux disease, unspecified whether esophagitis present- Primary [facility] Diagnosis Gastroesophageal reflux disease, unspecified whether esophagitis present documented in this encounter [facility] note* Diagnosis Migraine without aura, not intractable, with status migrainosus- Primary documented in this encounter [facility] note* Diagnosis Migraine without aura, intractable, without status migrainosus- Primary documented in this encounter [facility] note* Diagnosis Convulsions, unspecified convulsion type (HCC)- Primary documented in this encounter [facility] note* Diagnosis Syncope and collapse- Primary documented in this encounter [facility] note* Diagnosis Psychogenic nonepileptic seizure- Primary documented in this encounter [facility] note* Diagnosis 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 documented in this encounter [facility] note* Diagnosis 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 documented in this encounter [facility] note* Diagnosis 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 documented in this encounter [facility] note* Diagnosis 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 documented in this encounter [facility] note* Diagnosis Urinary problem- Primary Other urinary problems Acute cystitis with hematuria Acute cystitis documented in this encounter [facility] note* Diagnosis 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 documented in this encounter [facility] note* Diagnosis Seizure-like activity (HCC)- Primary Other convulsions Moderate episode of recurrent major depressive disorder (HCC) documented in this encounter [facility] note* Diagnosis Intractable migraine with aura without status migrainosus- Primary Obstructive sleep apnea Obstructive sleep apnea (adult) (pediatric) Vertigo Dizziness and giddiness Numbness in right leg Disturbance of skin sensation Cervicalgia documented in this encounter [facility] note* Diagnosis Obstructive sleep apnea- Primary Obstructive sleep apnea (adult) (pediatric) documented in this encounter [facility] note* Diagnosis Seizure-like activity (HCC)- Primary Other convulsions Generalized anxiety disorder documented in this encounter [facility] note* Diagnosis Intractable migraine with aura without status migrainosus- Primary Obstructive sleep apnea Obstructive sleep apnea (adult) (pediatric) Vertigo Dizziness and giddiness Psychogenic nonepileptic seizure documented in this encounter [facility] note* Diagnosis Obstructive sleep apnea Obstructive sleep apnea (adult) (pediatric) documented in this encounter [facility]* Diagnosis Abnormal levels of other serum enzymes documented in this encounter [facility] note No data available for this section [facility] Reason for referral (narrative)* Diagnostic Procedure Only (Routine) - Authorized Specialty Diagnoses / Procedures Referred By Enmaac t Referred To Contact XR IMAGING Diagnoses Gastroesophageal reflux disease, unspecified whether esophagitis present Procedures XR ESOPHAGRAM RADIOLOGIC EXAM ESOPHAGUS SINGLE CONTRAST STUDY Greg Robles MD [employer] [place] [phone] Xr Imaging Referral ID Status Reason Start Date Expiration Date Visits Requested Visits Authorized [id number] Authorized Auto-Generat ed Referral 07/23/2022 08/22/2023 1 1 * Outpatient Procedure (Routine) - Pending Review Specialty Diagnoses / Procedures Referred By Kevin cannon Referred To Contact [facility] Diagnoses Gastroesophageal reflux disease, unspecified whether esophagitis present Procedures EGD DIAGNOSTIC ESOPHAGOGASTRODUODENOSC OPY TRANSORAL DIAGNOSTIC Greg Robles MD [employer] [address] [place] [phone] [facility] Disease [place] [address] [place] [address] Referral ID Status Reason Start Date Expiration Date Visits Requested Visits Authorized [id number] Pending Review Auto-Generat ed Referral 07/23/2022 07/23/2023 1 1 [facility] for referral (narrative)* Outpatient Procedure (Routine) - Closed Specialty Diagnoses / Procedures Referred By Contac t Referred To Contact [facility] Diagnoses Gastroesophageal reflux disease, unspecified whether esophagitis present Procedures EGD DIAGNOSTIC ESOPHAGOGASTRODUODENOSC OPY TRANSORAL DIAGNOSTIC Greg Robles MD [employer] [place] [phone] [facility] Disease [place] [address] [place] [id number] Referral ID Status Reason Start Date Expiration Date V isits Requested Visits Authorized [id number] Closed Auto-Generate d Referral 07/23/2022 07/23/2023 1 1 [facility] for referral (narrative)* Outpatient Procedure (Routine) - Pending Review Specialty Diagnoses / Procedures Referred By Kevin cannon Referred To Contact [facility] Diagnoses Gastroesophageal reflux disease, unspecified whether esophagitis present Procedures EGD DIAGNOSTIC ESOPHAGOGASTRODUODENOSC OPY TRANSORAL DIAGNOSTIC Greg Robles MD [employer] [place] [address] [place] [address] Referral ID Status Reason Start Date Expiration Date Visits Requested Visits Authorized [id number] Pending Review Auto-Generat ed Referral 08/02/2023 1 1 [facility] for referral (narrative)* Outpatient Procedure (Routine) - New Request Specialty Diagnoses / Procedures Referred By Kevin t Referred To [facility] Diagnoses Convulsions, unspecified convulsion type (HCC) Procedures EPIL EEG LEAD PLACEMENT EEG EXTENDED MONITORING 61-119 MINUTES ELECTROENCEPHALOGRAM REC COMA/SLEEP ONLY Edwin Lock MD [address] [place] [address] [place] [address] Referral ID Status Reason Start Date Expiration Date Visits Requested Visits Authorized [id number] New Request Auto-Generat ed Referral 04/09/2024 04/09/2025 1 1 [facility] for visit Narrative* Outpatient Procedure (Routine) - Closed Specialty Diagnoses / Procedures Referred By Kevin t Referred To [facility] Diagnoses Gastroesophageal reflux disease, unspecified whether esophagitis present Procedures EGD DIAGNOSTIC ESOPHAGOGASTRODUODENOSC OPY TRANSORAL DIAGNOSTIC Greg Robles MD [address] [place] [address] [facility] [place] [address] [place] [address] Referral ID Status Reason Start Date Expiration Date V isits Requested Visits Authorized [id number] Closed Auto-Generate d Referral 07/23/2022 07/23/2023 1 1 [facility] for visit Narrative* Outpatient Procedure (Urgent) - Closed Specialty Diagnoses / Procedures Referred By Contac t Referred To Contact Cardiology / CARDIOLOGY Diagnoses Test: Tilt Table Study DX: R55 Ordering Provider: Noa Saravia DO Spoke with: Patient Order scanned into chart Procedures CARD BL POOL PLNR SUPERVISOR RIDE ASSEMBLY STDY WAL MOTN EJECT FRACT ECHO TTHRC R-T 2D W/WOM-MODE COMPL SPEC&COLR D TILT TABLE Noa Saravia DO [address] [place] [address] [facility] [address] [place] [address] Referral ID Status Reason Start Date Expiration Date V isits Requested Visits Authorized [id number] Closed OON/Self Pay Override 12/16/2023 08/14/2024 1 1 [facility] for visit Narrative* Hospital - Outpatient (Routine) - Closed Specialty Diagnoses / Procedures Referred By Kevin cannon Referred To Contact Sleep Medicine Diagnoses Obstructive sleep apnea Procedures Home sleep test Freddie Ramirez MD [address] [facility] [address] [place] [address] Phone: tel: fax: [facility] [address] [place] [address] Phone: tel: fax: Referral ID Status Reason Start Date Expiration Date Visits Re quested Visits Authorized [id number] Closed 11/26/2024 11/21/2025 [address] [facility] note* TAY Kunz: PERFORM Event Display: Patient Summary Documents Authored Date: [id number] [facility] summary note* TAY Kunz Filiberto: PERFORM Event Display: Patient Summary Documents Authored Date: [id number] [facility] summary note* TAY Kunz: PERFORM Event Display: Patient Summary Documents Authored Date: [id number] [facility] summary note* TAY Kunz Filiberto: PERFORM Event Display: Patient Summary Documents Authored Date: [id number] [facility] Summary Purpose Family History No Family History [...] 08/15/2022 12:18 PM EST 4 mg Oral Reason for Referral Specialty Diagnoses / Procedures Referred By Contac t Referred To Contact Psychology Diagnoses Psychogenic nonepileptic seizure Procedures CONSULT TO PSYCHOLOGY OFFICE/[facility] 60 MINUTES Javon Crouch PA-C [address] [place] [address] Referral ID Status Reason Start Date Expiration Date Visits Requested Visits Authorized [id number] Pending Review PCP Requested Referral 05/02/2024 05/02/2025 1 1 Additional Source Comments INFORMATION SOURCE (unrecogn ized section and content) DATE CREATED AUTHOR 04/14/2018 [facility] DATE CREATED AUTHOR AUTHOR'S ORGANIZ ATION 09/06/2020 [facility] DATE CREATED AUTHOR AUTHOR'S ORGANIZ ATION 09/22/2021 [facility] DATE CREATED AUTHOR AUTHOR'S ORGANIZ ATION 08/05/2022 [facility] DATE CREATED AUTHOR AUTHOR'S ORGANIZ ATION 02/13/2024 [facility] ([place] DATE CREATED AUTHOR AUTHOR'S ORGANIZ ATION 06/18/2024 [facility] DATE CREATED AUTHOR AUTHOR'S ORGANIZ ATION 10/11/2024 [facility] DATE CREATED AUTHOR AUTHOR'S ORGANIZ ATION 11/23/2024 [facility] DATE CREATED AUTHOR AUTHOR'S ORGANIZ ATION 03/06/2025 [facility] DATE CREATED AUTHOR AUTHOR'S ORGANIZ ATION 03/27/2025 [facility] DATE CREATED AUTHOR AUTHOR'S ORGANIZ ATION 03/28/2025 [facility] DATE CREATED AUTHOR AUTHOR'S ORGANIZ ATION 04/07/2025 [facility] Care Team (unrecognized sect ion and content) Residential Carpet Installer Relationship Specialty Start Date End Date Sandoval Hogan MD [address] [place] [address] PCP - General 06/08/02 Residential Carpet Installer Relationship Specialty Start Date End Date Sandoval Hogan MD [address] [place] [address] PCP - General 06/08/02 Residential Carpet Installer Relationship Specialty [place] [address] [place] [address], [place] [address] PCP - General 06/08/02 Residential Carpet Installer Relationship Specialty [place] [address] [place] [address], [place] [address] PCP - General 06/08/02 Residential Carpet Installer Relationship Specialty Start Date End Date Sandoval Hogan MD [address] [place] [address], [place] [address] PCP - General 06/08/02 Residential Carpet Installer Relationship Specialty Start Date End Date Sandoval Hogan MD [address] [place] [address], [place] [address] PCP - General 06/08/02 Residential Carpet Installer Relationship Specialty Start Date End Date Sandoval Hogan MD [address] [place] [address], [place] [address] PCP - General 06/08/02 Residential Carpet Installer Relationship Specialty Start Date End Date Sandoval Hogan MD [address] [place] [address] PCP - General 06/08/02 Residential Carpet Installer Relationship Specialty [place] [address] [place] [address], [place] [address] PCP - General 06/08/02 Residential Carpet Installer Relationship Specialty Start Date End Date Sandoval Hogan MD [address] [place] [address], [place] [address] PCP - General 06/08/02 Residential Carpet Installer Relationship Specialty Start Date End Date Sandoval Hogan MD [address] [place], [place] [id number] PCP - General 06/08/02 Residential Carpet Installer Relationship Specialty Start Date End Date Sandoval Hogan MD [address] [place] [address] PCP - General 06/08/02 Residential Carpet Installer Relationship Specialty Start Date End Date Sandoval Hogan MD [address] [place], [place] [address] PCP - General 06/08/02 Residential Carpet Installer Relationship Specialty Start Date End Date Sandoval Hogan MD [address] [place], [place] [address] PCP - General 06/08/02 Residential Carpet Installer Relationship Specialty Start Date End Date Fani Baez MD [address] [place] [phone] PCP - General Family Medicine 06/13/24 Residential Carpet Installer Relationship Specialty Start Date End Date Fani Baez MD [address] [place] [phone] PCP - General Family Medicine 06/13/24 Residential Carpet Installer Relationship Specialty Start Date End Date Fani Baez MD [address] [place] [phone] PCP - General Family Medicine 06/13/24 Residential Carpet Installer Relationship Specialty Start Date End Date Fani Baez MD [address] [place] [id number] PCP - General Family Medicine 06/13/24 Residential Carpet Installer Relationship Specialty Start Date End Date Fani Baez MD [address] [place] [address] PCP - General Family Medicine 06/13/24 Residential Carpet Installer Relationship Specialty Start Date End Date Fani Baez MD [address] [place] [phone] PCP - General Family Medicine 06/13/24 Residential Carpet Installer Relationship Specialty Start Date End Date Willie Mcintyreora [address] [place] [phone] PCP - General 01/25/20 Residential Carpet Installer Relationship Specialty Start Date End Date Fani Baez MD [address] [place] [phone] PCP - General Family Medicine 11/20/24 Residential Carpet Installer Relationship Specialty Start Date End Date Fani Baez MD [address] [place] [phone] PCP - General Family Medicine 11/20/24 Residential Carpet Installer Relationship Specialty Start Date End Date Fani Baez MD [address] [place] [phone] PCP - General Family Medicine 11/20/24 Residential Carpet Installer Relationship Specialty Start Date End Date Fani Baez MD [address] [place] [phone] PCP - General Family Medicine 06/13/24 Residential Carpet Installer Relationship Specialty Start Date End Date Fani Baez MD [address] [place] [phone] PCP - General Family Medicine 11/20/24 Residential Carpet Installer Relationship Specialty Start Date End Date Fani Baez MD [address] [place] [phone] PCP - General Family Medicine 11/20/24 Care Team (unrecognized sect ion and content) Personnel Name: FANI BAEZ MD Address: Address: [address] [place] [address]- Care Team Personnel Name: FANI BAEZ MD Med Service: Surgery Member Role: Primary Care Physician Address: Address: [address] [place] [address]- Care Team Related Persons Name: QUEENIE MALDONADO Care Team Personnel Name: FANI BAEZ MD Member Role: Primary Care Physician Address: Address: [address] [place] [place] [id number]- Name: KATIANA FLORENTINO DO Position: ED Physician Member Role: ED Physician Address: Address: [address] [place] [address] [facility] [address] Care Team Related Persons Name: QUEENIE MALDOANDO Care Team Personnel Name: FANI BAEZ MD Med Service: Surgery Member Role: Primary Care Physician Address: Address: [address] [place] [address]- Care Team Related Persons Name: QUEENIE MALDONADO Care Team Personnel Name: FANI BAEZ MD Med Service: Surgery Member Role: Primary Care Physician Address: Address: [address] [id number]- Care Team Related Persons Name: QUEENIE MALDONADO Care Team Personnel Name: FANI BAEZ MD Member Role: Primary Care Physician Address: Address: [address] [place] [address]- Name: CATHERINE CORDOBA MD Position: ED Physician Member Role: ED Physician [facility]: [facility] [address] [place] [address] Care Team Related Persons Name: ABI MALDONADOI Care Team Personnel Name: FANI BAEZ MD Member Role: Primary Care Physician Address: Address: [address] [id number]- [place] Name: Birgit Yang RN Position: AO RN Member Role: RN Name: CLAUDIA SHANKS DO Position: ED Physician Member Role: ED Physician Address: Address: [facility] [address] [place] [address] Care Team Related Persons Name: BIRABI CarreonI Care Team Personnel Name: FANI BAEZ MD Member Role: Primary Care Physician Address: Address: [address] Name: TSERING MONTERO DO Position: ED Physician Member Role: ED Physician Address: Address: [address] [place] [id number]- Name: Anabel Cramer RN Position: AO RN Member Role: ED RN Care Team Related Persons Name: QUEENIE MALDONADO Care Team Personnel Name: FANI BAEZ MD Member Role: Primary Care Physician Address: Address: [address] [place] [address]- Name: SANDOVAL LUNDY MD Position: ED Physician Member Role: Attending Physician Address: Address: [address] [place] [address] [facility] [address] Care Team Related Persons Name: QUEENIE MALDONADO Source Comments (unrecognize d section and content) In the event this informatio n is protected by the Federal Confidentiality of Alcohol and Drug Abuse Patient Records regulations: The Federal rules restrict any use of the information to criminally investigate or prosecute any alcohol or drug abuse patient.[facility] the event this information is protected by the Federal Confidentiality of Alcohol and Drug Abuse Patient Records regulations: The Federal rules restrict any use of the information to criminally investigate or prosecute any alcohol or drug abuse patient.[facility] the event this information is protected by the Federal Confidentiality of Alcohol and Drug Abuse Patient Records regulations: The Federal rules restrict any use of the information to criminally investigate or prosecute any alcohol or drug abuse patient.[facility] the event this information is protected by the Federal Confidentiality of Alcohol and Drug Abuse Patient Records regulations: The Federal rules restrict any use of the information to criminally investigate or prosecute any alcohol or drug abuse patient.[facility] the event this information is protected by the Federal Confidentiality of Alcohol and Drug Abuse Patient Records regulations: The Federal rules restrict any use of the information to criminally investigate or prosecute any alcohol or drug abuse patient.[facility] the event this information is protected by the Federal Confidentiality of Alcohol and Drug Abuse Patient Records regulations: The Federal rules restrict any use of the information to criminally investigate or prosecute any alcohol or drug abuse patient.[facility] the event this information is protected by the Federal Confidentiality of Alcohol and Drug Abuse Patient Records regulations: The Federal rules restrict any use of the information to criminally investigate or prosecute any alcohol or drug abuse patient.[facility] the event this information is protected by the Federal Confidentiality of Alcohol and Drug Abuse Patient Records regulations: The Federal rules restrict any use of the information to criminally investigate or prosecute any alcohol or drug abuse patient.[facility] the event this information is protected by the Federal Confidentiality of Alcohol and Drug Abuse Patient Records regulations: The Federal rules restrict any use of the information to criminally investigate or prosecute any alcohol or drug abuse patient.[facility] the event this information is protected by the Federal Confidentiality of Alcohol and Drug Abuse Patient Records regulations: The Federal rules restrict any use of the information to criminally investigate or prosecute any alcohol or drug abuse patient.[facility] the event this information is protected by the Federal Confidentiality of Alcohol and Drug Abuse Patient Records regulations: The Federal rules restrict any use of the information to criminally investigate or prosecute any alcohol or drug abuse patient.[facility] the event this information is protected by the Federal Confidentiality of Alcohol and Drug Abuse Patient Records regulations: The Federal rules restrict any use of the information to criminally investigate or prosecute any alcohol or drug abuse patient.[facility] the event this information is protected by the Federal Confidentiality of Alcohol and Drug Abuse Patient Records regulations: The Federal rules restrict any use of the information to criminally investigate or prosecute any alcohol or drug abuse patient.[facility] the event this information is protected by the Federal Confidentiality of Alcohol and Drug Abuse Patient Records regulations: The Federal rules restrict any use of the information to criminally investigate or prosecute any alcohol or drug abuse patient.[facility] the event this information is protected by the Federal Confidentiality of Alcohol and Drug Abuse Patient Records regulations: The Federal rules restrict any use of the information to criminally investigate or prosecute any alcohol or drug abuse patient.[facility] the event this information is protected by the Federal Confidentiality of Alcohol and Drug Abuse Patient Records regulations: The Federal rules restrict any use of the information to criminally investigate or prosecute any alcohol or drug abuse patient.[facility]In the event this information is protected by the Federal Confidentiality of Alcohol and Drug Abuse Patient Records regulations: The Federal rules restrict any use of the information to criminally investigate or prosecute any alcohol or drug abuse patient.[facility] the event this information is protected by the Federal Confidentiality of Alcohol and Drug Abuse Patient Records regulations: The Federal rules restrict any use of the information to criminally investigate or prosecute any alcohol or drug abuse patient.[facility]In the event this information is protected by the Federal Confidentiality of Alcohol and Drug Abuse Patient Records regulations: The Federal rules restrict any use of the information to criminally investigate or prosecute any alcohol or drug abuse patient.[facility]In the event this information is protected by the Federal Confidentiality of Alcohol and Drug Abuse Patient Records regulations: The Federal rules restrict any use of the information to criminally investigate or prosecute any alcohol or drug abuse patient.[facility]In the event this information is protected by the Federal Confidentiality of Alcohol and Drug Abuse Patient Records regulations: The Federal rules restrict any use of the information to criminally investigate or prosecute any alcohol or drug abuse patient.[facility]In the event this information is protected by the Federal Confidentiality of Alcohol and Drug Abuse Patient Records regulations: The Federal rules restrict any use of the information to criminally investigate or prosecute any alcohol or drug abuse patient.[facility]In the event this information is protected by the Federal Confidentiality of Alcohol and Drug Abuse Patient Records regulations: The Federal rules restrict any use of the information to criminally investigate or prosecute any alcohol or drug abuse patient.[facility]In the event this information is protected by the Federal Confidentiality of Alcohol and Drug Abuse Patient Records regulations: The Federal rules restrict any use of the information to criminally investigate or prosecute any alcohol or drug abuse patient.[facility] Reason for Visit (unrecogniz ed section and content) Reason Comments Head Congestion Started 2 weeks ago at home covid tests were neg. Reason Comments Dysuria Started Tuesday - Bur daniel with Urination, Fever 101, BAUER, Body Aches, [...] Neck pain from migra ine, started yesterday Reason Comments New Patient Seizures Reason Comments Radiology MRI Specialty Diagnoses / Procedures Referred By Kevin t Referred To Contact Radiology / RADIO MRI Diagnoses Test: MRI Brain WO Contrast DX: R55 Ordering Provider: Noa Saravia DO Spoke with: Patient Order scanned into chart Procedures MRI WO ELLI B 300 ALL Noa Saravia DO [address] [place] [address] Radio Mri [facility] [address] [place] [address] Referral ID Status Reason Start Date Expiration Date Visits Requested Visits Authorized [id number] Outside PCP OON/Self Pay Override 12/09/2023 03/18/2025 1 1 Reason Comments New Reason Comments Follow Up Reason Comments Urinary Problem Frequency started 3- 4 days ago Denies chance of STI or Fever Mostly at night [facility] 2-3 days ago Reason Comments Follow Up Seizures Reason Comments New Patient Headache Specialty Diagnoses / Procedures Referred By Contac t Referred To Contact Neurology Diagnoses Migraine without aura, intractable, without status migrainosus Procedures PA OFFICE/OUTPATIENT NEW MODERATE MDM 45 MINUTES Fani Baez MD [address] [place] [address] Phone: tel: fax: Freddie Ramirez MD [address] [place] [address] [place] [address] Phone: tel: fax: Referral ID Status Reason Start Date Expiration Date V isits Requested Visits Authorized [id number] Pending Review 08/07/2024 08/07/2025 1 1 Reason Onset Date Comments Prior Authorization 11/20/2024 PA required- PSG Reason Comments Seizures Follow Up Reason Comments Follow-up Migraine FOR RECORDS PERTAINING TO PATIENTS WHO ARE [...] BE BASED ON THE PRIMARY CLINICAL RECORDS. [facility]. provides no warranty or guarantee of the accuracy or completeness of information in this document.
[2025-04-14 21:00] VITALS: PULSE 92; RESP 22; O2SAT 100
[2025-04-14 21:12] VITALS: BMI 48.8
[2025-04-14 21:44] VITALS: BP 149/87; PULSE 93; RESP 18; TEMP 36.6; O2SAT 97
== END 2025-04-14 21:44 | disposition home or self-care (01) ==
PROVIDERS: Emergency Provider Emergency Medicine; PCP Family Medicine; Visit Provider Emergency Medicine
DX: G40.409 Other generalized epilepsy and epileptic syndromes, not intractable, without status epilepticus (principal); S09.90XA Unspecified injury of head, initial encounter; S40.012A Contusion of left shoulder, initial encounter; S80.02XA Contusion of left knee, initial encounter; Y92.512 Supermarket, store or market as the place of occurrence of the external cause; W19.XXXA Unspecified fall, initial encounter
CPT/HCPCS: 70450; 73030; 73564; 99282; A4216

== ENCOUNTER 2025-05-13 08:00 | Outpatient (RCR) | payer MEDICARE, MEDICAID, SELFPAY ==
--- NOTE | 2025-05-13 09:00 | BH.SGPN.GN ---
Behaviors/Verbalizations/Mental Status: [] Pt alert and oriented, casually dressed and groomed. Eye contact good. Motor activity appropriate. Speech within normal limits. Affect congruent, mood calm. Thoughts linear, logical, no signs of hallucinations or delusions. Reviewed pt?s symptom tracker, 1/5 with 5 being severe for risk for suicidal ideation, indicates a 0/5 for plan, and intent to kill self. Pt does not appear to be imminent risk to harm self. 05/13/25. Client Response/Progress/Benefit: []Pt was an active participant in group discussions. Attentive. Per patients daily symptom tracker, pt indicates a 3/5 for depression and a 4/5 for anxiety, with 5 being severe. This was pt's first session, she had attended [facility] about 8 years ago. 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 Her stressor was lack of consistent sleep. Pt was supportive and attentive to others in the group. Pt seemed to benefit from support from peers. Will continue IOP tx to promote healthy coping mechanisms, reduce negative thinking patterns, and prevent decompensation.
--- NOTE | 2025-05-13 10:15 | BH.SGPN.GN ---
Behaviors/Verbalizations/Mental Status: []Pt alert and oriented, casually dressed and groomed. Eye contact fair. Motor activity appropriate. Speech within normal limits. Mood is anxious and engaged. Affect is congruent. Thoughts linear, logical, no signs of hallucinations or delusions. Client Response/Progress/Benefit: [] Pt was an active?participant in group discussions and experiential activity. Worked with peers to identify benefits of healthy relationships which included; support, shared experiences, laughter, understanding, and perspective challenge. Group identified factors that lead to unhealthy relationships which included; low self-esteem, trauma-bonding, poor communication, and manipulation/toxic behaviors. Pt worked with group to identify the positives have having healthy relationships. Benefited from increased insight and awareness of benefits of healthy relationships and factors that contribute to unhealthy relationships. Will continue IOP to improve daily functioning, decrease anxious avoidance, and prevent decompensation.
--- NOTE | 2025-05-13 10:37 | BH.COMM_ITS ---
Communication Note Communication with Client Communication Note: Met with pt to complete paperwork, update any changes to pre-admission screening, and complete risk assessment. Moderate-Severe risk on [facility]. Consulted with Dr. 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
--- NOTE | 2025-05-13 11:15 | BH.SGPN.GN ---
Behaviors/Verbalizations/Mental Status: []Pt alert and oriented, casually dressed and groomed. Eye contact good. Motor activity appropriate. Speech within normal limits. Mood anxious. Affect congruent. Thoughts linear, logical, no signs of hallucinations or delusions. Client Response/Progress/Benefit: []Pt responded well to session, engaged and taking notes throughout. Worked with group to connect components of the experiential activity with characteristics of healthy and unhealthy relationships. Attentive during psychoeducation about characteristics of healthy, unhealthy, and abusive relationships. Pt identified wanting to work on ?communicating with my relationships about my trust issues.? Appeared to benefit from identifying current healthy relationship attributes. Pt to continue IOP tx to prevent decompensation, improve daily functioning, and improve self-confidence. Narrative Note: []
--- NOTE | 2025-05-14 09:05 | BH.SGPN.GN ---
Behaviors/Verbalizations/Mental Status: [] Pt alert and oriented, neatly dressed and groomed. Eye contact fair.. Motor activity appropriate. Speech within normal limits. Affect constricted, mood anxious. Thoughts linear, logical, no signs of hallucinations or delusions. Reviewed pt?s symptom tracker, no risk for suicidal ideation, plan, or intent 05/14/25. Client Response/Progress/Benefit: []Pt was an active participant in group discussions. Attentive. Able to identify mental health wins including ?I plan to go to the [employer] this weekend and be social? pt also had a good conversation with a friend online that pt felt helped their relationship. Pt's stressor today is ?my social anxiety about this weekend.? The group offered pt suggests managing this stressor and emotional support which pt reported was helpful. Pt is feeling ?content? this morning. Pt receptive to feedback from peers. Benefited from group support, encouragement, and feedback. Progress noted. Will continue IOP tx to prevent decompensation, improve self-confidence, and reduce negative thinking patterns. ?? Narrative Note: []
--- NOTE | 2025-05-14 10:10 | BH.SGPN.GN ---
Behaviors/Verbalizations/Mental Status: [] Client alert and oriented, casually dressed and groomed. Eye contact fair. Motor activity appropriate. Speech within normal limits. Affect congruent, mood anxious. Thoughts linear, logical, no signs of hallucinations or delusions. Client Response/Progress/Benefit: [] Client responded well to session, contributing to discussion and engaged during the activity. Group identified the benefits of change which included: increased confidence, progressing towards goals, and improving mental and physical health. Worked with the group to identify barriers to change, which included: uncomfortable emotions such as anxiety, lack of energy, lack of supports, and negative influences. Client participated along with group in activity where they identified and discussed the emotions related to change. Benefited from increased awareness and understanding of emotions, benefits, and barriers related to change. Will continue IOP tx to decrease anxious avoidance, improve daily functioning, and prevent decompensation.
--- NOTE | 2025-05-14 13:15 | BH.MDN ---
Multi-Disciplinary Note Note 45-min Individual: Time Started:: 11:15 Date: 05/14/25 Purpose of session/treatment goals addressed:: Purpose of session was to build rapport, gather background information, and start discussion of treatment goals. Eye Contact:: Good Motor Activity:: Appropriate Appearance:: Casual Speech:: Soft Mood:: Anxious Affect:: Congruent Thoughts:: Linear, Logical and No evidence of hallucinations/delusions noted Staff Interventions:: CBT techniques, rapport building, strengths perspective and treatment planning Client Response:: The client was alert and attentive during the session. She was able to share updated information about her presenting problems, psychiatric history, social supports. The client reports coming to [facility] to get support for anxiety and depressive symptoms, identifying holidays as a triggering time. Client shared that her anxiety has worsened in the past two years due to her father's diagnosis with Milford's disease, and worsening physical health. The client was open in sharing her fears about her father's health and the impact that it had on her and her family. Client also shared that she has experienced a resurgence of non-epileptic seizures, recalling a recent event where she passed out while shopping. Client has celiac disease and is lactose intolerant. She reports that she does not currently follow a celiac or dairy free diet which could contribute to her physical symptoms such as nausea and fatigue. Client also lived with an ex-boyfriend for a few months in 2023 who she reported did not support her dietary needs. Client does not currently attend college due to anxiety and feeling overwhelmed and is not employed. She endorses variable appetite, anxiety, difficulty accepting change, bereavement due to her father's illness, somatic symptoms, and stress. The client listed her parents, best friend, and online friends as a good support network. Client is receptive to challenging anxiety, working on exposure, and increasing coping mechanisms. Risks/Concerns:: The client stated that she has had suicidal thoughts in the past and as recent as this week, but denies any suicidal ideation, plan, and intent as of 05/14/25. She reports parents and friends as protective factors. Progress Toward Goals/Plan:: No progress noted yet as it is the client's first day in [facility]. Client appears motivated and engaged in goal setting and treatment. 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 She currently endorses variable appetite, anxiety, difficulty accepting change, bereavement due to her father's illness, somatic symptoms, and stress. Client identified treatment goals as being more tolerable around holidays, and is receptive to trying exposure goals. Client to continue IOP to prevent decompensation, promote mood stability, and increase coping skills. Time Stopped:: 12:00
--- NOTE | 2025-05-14 13:18 | BH.MTP ---
Documented by User: Doris Elaine 05/22/25 14:09 Master Treatment Plan Patient Information Program Physician:: Dr. Jackson Primary Therapist:: Doris Elaine Psychiatric Diagnoses Psychiatric Diagnoses:: SIMÓN F41.1 Estimated LOS Estimated LOS (in weeks):: 8 Problem/Goal #1 Problem/Goal #1 Stated Goal:: Client will reduce overall frequency, intensity, and duration of anxiety to improve functioning and social relationships. Description of Barriers: Client has good insight into her triggers and symptoms, identifying social situations as one of her main points of anxiety. Client identified that she has been using avoidance to reduce feelings of anxiety, often staying home or cancelling situations where she would interact with others. Client stated that low self- esteem and fear of judgement from others keeps her from interacting with others. Functional Impact: Client is a 25 year old female with a history of depression, anxiety, and social phobia. Client previously attended [facility] due to anxiety symptoms. Client reports a that anxiety has been worsening since 2019, due to the Covid 19 pandemic. Client shared that she experienced significant health anxiety and was afraid to leave the house. While this has lessened, the client reports that her mental and physical health have consistently worsened over the past two years, during which she took a break from college, reporting that she was failing multiple classes and felt overwhelmed. Client also cites fathers recent diagnosis of Germán's disease as a major stressor. Client endorses presence of suicidal ideation in the past week, with no apparent risk for intent or plan. Client reports somatic symptoms related to anxiety including nausea, fatigue, and tension. The client also has celiac disease and is lactose intolerant which she reports reinforces her physical symptoms as well as her anxiety. She endorses isolation and avoidance behaviors. Client states that her symptoms are affecting daily functioning and mood. Goal Relevant Strengths/Supports: Client is motivated and willing to improve her mental health. Client is kind, intelligent, and shows good insight into where and how she wants to improve. Client reports that she is willing to do homework and is ready to begin working on exposure goals. Client identifies parents and a close friend as supports and accountability that she can rely on. Client has done the IOP program before, so she shows good insight and knowledge of her symptoms, triggers, and goals. Client reported that she had been pushing her self at home and outside of [facility] to achieve her goals, which she identifies as something that will be beneficial to her treatment. Objectives Objective #1: Stated Objective: Client will learn 2 new coping skills to manage anxiety, and will engage in one anxiety provoking activity a day. Interventions: Therapist will provide psychoeducation on anxiety and coping skills, helping the client to understand the positive results that come from challenging anxious thoughts and behaviors. Therapist will work with client to come up with coping skills to help client self-regulate when experiencing anxiety. Discharge Criteria: Client will have accomplished this goal when she is able to exhibit the successful use of coping skills, and engage in at least one anxiety provoking activity a day. Target Date: 07/05/25 Review Date: 07/05/25 Status: Open Objective #2: Stated Objective: Client will identify and challenge 2-3 anxious thoughts and come up with 2-3 reframing statements to use when feeling anxious or triggered. Interventions: Therapist will provide psychoeducation on cognitive distortions and negative self-talk and teach the client how this can effect socialization. Therapist will assist client in challenging, reframing, and replacing cognitive distortions with more realistic and positive thoughts. Therapist will use CBT techniques to further client understanding of cognitive distortions and how to challenge them. Discharge Criteria: Client will accomplish this goal when she can successfully identify 2-3 anxious thoughts and challenge them with 2-3 reframing statements. Target Date: 07/05/25 Review Date: 07/05/25 Status: open Problem/Goal #2 Problem/Goal #2 Stated Goal:: Client will decrease depressive symptoms, isolation, and agitation through Intensive Outpatient Program. Description of Barriers: Client has good insight into her triggers and symptoms, identifying social situations as one of her main points of anxiety. Client identified that she has been using avoidance to reduce feelings of anxiety, often staying home or cancelling situations where she would interact with others. Client stated that low self- esteem and fear of judgement from others keeps her from interacting with others. Functional Impact: Client is a 25 year old female with a history of depression, anxiety, and social phobia. Client previously attended [facility] due to anxiety symptoms. Client reports a that anxiety has been worsening since 2019, due to the Covid 19 pandemic. Client shared that she experienced significant health anxiety and was afraid to leave the house. While this has lessened, the client reports that her mental and physical health have consistently worsened over the past two years, during which she took a break from college, reporting that she was failing multiple classes and felt overwhelmed. Client also cites fathers recent diagnosis of Germán's disease as a major stressor. Client endorses presence of suicidal ideation in the past week, with no apparent risk for intent or plan. Client reports somatic symptoms related to anxiety including nausea, fatigue, and tension. The client also has celiac disease and is lactose intolerant which she reports reinforces her physical symptoms as well as her anxiety. She endorses isolation and avoidance behaviors. Client states that her symptoms are affecting daily functioning and mood. Goal Relevant Strengths/Supports: Client is motivated and willing to improve her mental health. Client is kind, intelligent, and shows good insight into where and how she wants to improve. Client reports that she is willing to do homework and is ready to begin working on exposure goals. Client identifies parents and a close friend as supports and accountability that she can rely on. Client has done the IOP program before, so she shows good insight and knowledge of her symptoms, triggers, and goals. Client reported that she had been pushing her self at home and outside of [facility] to achieve her goals, which she identifies as something that will be beneficial to her treatment. Objectives Objective #1: Stated Objective: Client will identify 2-3 triggers and 2-3 new ways to navigate stressful situations rather than becoming irrational. Interventions: Therapist will use motivational interviewing to help client make changes in life help manage emotions in stressful situations, and feel more confident in herself. Discharge Criteria: Client will accomplish this goal when she can describe less than 2 irrational reactions in a week, and two new ways to handle these stressful situations. Target Date: 07/05/25 Review Date: 07/05/25 Status: Open Objective #2: Stated Objective: Client will learn and utilize 2-3 healthy coping strategies to manage depressive symptoms. Interventions: Therapist and group will utilize CBT techniques to assist client with understanding the connection between thoughts, feelings, and behaviors. Education will be provided on behavioral activation. Therapist will assist client in learning internal coping strategies to manage depressive symptoms, along with helping client identify triggers. Discharge Criteria: Client will have achieved this goal when they can verbalize and have practiced at least 2 healthy coping strategies that successfully manage depressive symptoms. Target Date: 07/05/25 Review Date: 07/05/25 Status: Open Documented by User: Allyn Babin [facility] 06/11/25 15:40 Problem/Goal #1 Objectives Objective #1: Review Date: 06/10/25 Objective #2: Review Date: 06/10/25 Problem/Goal #2 Objectives Objective #1: Review Date: 06/10/25 Objective #2: Target Date: 06/10/25
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
== END 2025-05-14 23:59 ==
LOC: BHIOP 08:00
PROVIDERS: PCP Family Medicine; Referring Provider Internal Medicine; Visit Provider Internal Medicine
DX: F41.1 Generalized anxiety disorder (principal)
CPT/HCPCS: S9480; 90834; 90853

== ENCOUNTER 2025-05-15 08:07 | Outpatient (RCR) | payer MEDICARE, MEDICAID, SELFPAY ==
--- NOTE | 2025-05-17 09:00 | BH.NA ---
Physical Data Vital Signs Pulse Rate: 103 Blood Pressure: 153/97 Height/Weight Height: 1.68 m Weight:: 127.006 kg Weight in Pounds: 280.0 lbs Current Medication Compliance Medication Compliance Do you take your medication as prescribed?: Yes Functional Assessment Sleep Pattern Describe any problems with sleeping: Client states she sleeps about 8-10 hours per day. Sensory/Communication Assess Vision Problems Do you have any vision problems?: Glasses Communication Problems Do you have difficulty understanding what people are saying?: No Medical Problems/History Neurological Conditions Neurological: Other (See comments) (migraines, post concussion syndrome, non-epileptic seizures (client states due to stress or heat, states she can go months without any or they can happen weekly. Client states her last seizure was about 1 week ago) ) Gastrointestinal Conditions Gastrointestinal: Other (See comments) (celiac disease, GERD) Musculoskeletal Conditions Musculoskeletal: Other (See comments) (fibromyalgia/chronic fatigue, back/knee pain) Pain Assessment Do you have acute or chronic pain?: Yes (back/knees) Family History Family History Mother Diabetes Cancer skin Thyroid disorder Father Diabetes Hypertension Surgical History Surgical History Have you had any surgeries? If so, list type and date:: Yes (emily, tonsillectomy, hip plates as a child, wisdom teeth removal) Substance Abuse Substance Abuse Please describe substance abuse in the last 30 days:: Client denies alcohol or tobacco use. Client states she has a THC gummy occasionally. Client states she drinks 1 pop per day with caffeine. Mental Status Summary Mental Status Significant Findings/Observations on Appearance and Mood:: Client is alert and oriented x 4. Client is casually groomed. Client is cooperative with assessment. Client makes good eye contact. Client's voice has normal rate and volume. Client has a somewhat flat affect. Client makes logical associations and normal processing. Client denies delusions/hallucinations. Client reports some fleeting SI at times but denies at this time and denies plan/intent. Suicide Assessment Suicidal Ideation Are you currently or have you been suicidal in the past?: Yes Suicidal Intentional Rating Scale (SIRS): Suicidal thoughts (past) Physician Notification Past Psychiatric History MH Treatment Hx Past Psychiatric Medications:: Prozac, Klonopin, Seroquel, Zoloft Age of first mental health symptoms: Client states she first took medication for mental health around age 16-17. Describe (age, circumstance, etc) any past hospitalizations: 2014- [facility], 2018- [facility] for SI Current providers for mental health treatment (counselor, psychiatrist, case management assistant, etc.): [facility] for psychiatry and therapy Fall Risk Assessment Age Age: Less than 60 Mental Status Mental Status: Willing & able to ask for assistance when needed Physical Status Physical Status: No problems Impairments Impairments: None Elimination Elimination: Continent AND independent Gait or Balance Gait or Balance: Walks independently Hx of Falls History of falls in the past 6 months: No known history Medications/Substances Psychotropics:: Antidepressants Medications/substances used within the past 24 hours or ordered to administer: 1-2 of the medications/substances listed above Total Score Total Points:: 1 RN Summary of Impressions Impressions Recommendations Impressions: Psychiatric Issues: major depressive disorder, anxiety Level of Care How do the client's current symptoms and functional deficits support need for this level of care?: Client was in IOP in 2018 and returns at this time due to depression symptoms. Client states she feels coming to IOP before the holiday's is a good idea because the holiday's are usually a stressor that exacerbates her depression. Client states she has been having fleeting SI at times, but denies at this time. Client also reports panic attacks a few times a week. Client states her dad being diagnosed with Tyrone's disease and becoming more ill has been stressful. Client also reports brain fog and decreased ability to focus. IOP will promote gains and prevent further decompensation while providing social support and skills training. Nutritional Screen Height/Weight Height: 1.68 m Weight:: 127.006 kg Weight in Pounds: 280.0 lbs Nutrition Screening Normal Weight: 127.006 kg Normal/Usual Weight in Pounds: 280.0 lbs Have you lost weight without trying: No Have you been eating poorly because of a decreased appetite: No Recently been on tube feeds, TPN, or have any nutritional access device in place: No Have any large open wounds or wounds that are not healing: No Calculated Weight Change: 0 Change in weight Score: 0 MST Screening Tool Score: 0 *Automatic Nutrition referral for a score of 2 or greater.*: Discussed client's EoE, celiac disease and lactose intolerance. Client states her endoscopy in December 2024 showed improvements in her EoE and states she feels she has support and resources for her celiac disease. Client denies offer for nutrition consult.
--- NOTE | 2025-05-17 09:06 | BH.PSY.EVA_ITS ---
Intake Vital Signs 04/14/25 19:40 05/17/25 09:08 05/17/25 09:37 Height 1.7 m 1.7 m 1.68 m Weight: 127.006 kg BP 153/97 H Pulse 103 H Intake Visit Reasons: Est. care MDD Allergies gluten Allergy (Verified 05/17/25 09:29) Diarrhea milk (dairy) Adverse Reaction (Mild, Verified 05/17/25 09:29) INDEGESTION azithromycin Adverse Reaction (Verified 05/17/25 09:29) Diarrhea Medications ?Medication ?Instructions ?Recorded ?Confirmed ?Type ibuprofen 200 mg tablet 600 - 800 mg PO Q6H PRN PRN Pain 11/03/18 05/17/25 History ondansetron 4 mg disintegrating 4 mg PO Q8H PRN nausea and 07/19/22 05/17/25 Rx tablet vomiting #10 tabs gabapentin 100 mg capsule 100 mg PO DAILY 09/14/2211/06 History hydroxyzine pamoate 25 mg capsule 25 - 75 mg PO PRN [place] N Anxiety 09/14/22 05/17/25 History rimegepant 75 mg disintegrating 75 mg PO PRN PRN MIGRA NAOMI 09/14/22 05/17/25 History tablet (Nurtec ODT) meclizine 25 mg tablet 25 mg PO DAILY PRN dizziness 10/20/23 05/17/25 History pantoprazole 40 mg tablet,delayed 40 mg PO DAILY #30 t abs 12/22/23 05/17/25 Rx release (Protonix) levonorgestrel 0.15 mg-ethinyl 1 tab PO DAILY 02/20/24 05/17/25 History estradiol 30 mcg tablets,3 mos pack(91) (Jolessa) topiramate 100 mg tablet 100 mg PO BID 02/20/2405/17 History buspirone 30 mg tablet 30 mg PO BID 30 days #60 tab s 05/17/25 05/17/25 Rx duloxetine 30 mg capsule,delayed 30 mg PO BID 30 days #60 caps 05/17/25 Rx release sprinkle gabapentin 300 mg capsule 300 mg PO QHS 05/17/2505/17 History PFSH () Medical History PONV (postoperative nausea and vomiting) Post concussion syndrome Dietary restriction Leg cramps Chest pain GERD (gastroesophageal reflux disease) Migraines Seizures Allergic reaction (~10/22/22) Wears glasses Back pain Injury of head and neck Blackout History of hiatal hernia Gastric reflux Non-smoker Hip abductor tendonitis Depression Anxiety Surgical History History of wisdom tooth extraction History of cholecystectomy S/P cholecystectomy History of surgery on lower extremity Hx of tonsillectomy Family History Mother Diabetes Cancer skin Thyroid disorder Father Diabetes Hypertension Social History Smoking Status: Never smoker alcohol intake: never HPI () History of Present Illness History provided by: patient Chief complaint: Feeling tired HPI: Aaliyah is a 25y/o female who presented to [facility] IOP program for further evaluation and treatment of depression and anxiety. She is previously participated in the [facility] PHP/IOP program in 2019 due to her depression and anxiety however she has been rereferred due to worsening depression and anxiety which are impacting functioning. She has been decompensating over the past year due to multiple stressors. She notes in November her parents went to [place] for 4 weeks because her uncle was dying and she was at home with the dogs and that isolation was difficult for her and worsened her depression. Symptoms were further exacerbated with her father's diagnosis of Ogemaw's several months ago. Since that time he has had very labile mood and been very irritable and unpleasant and has been doing a lot of googling and research on his genetic code and illnesses which has been very stressful for Aaliyah and she reports PTSD due to previous health complications with her family. She also notes she was tested for Germán's in March and had to wait until April for results to come back which again further worsened her depression and anxiety. On top of her family stressors she also has struggled with migraines and chronic fatigue and joint pain that is worsened over the past few years and made it difficult to function or continue her college education. She notes that she never has a day where she feels 100% okay.. Notes today she is feeling tired as last night she stayed up because of the velingoft announcement of her you album and was making friendship bracelets, notes she is going to go home and take a nap and then go to the movie theater for a watch constitution party this evening which she is looking forward to. Does still note depression and particularly high levels of anxiety. She notes low energy and intermittent problems with sleep when someone in her family is having health problems and she feels it flares her anxiety. Does feel currently like sleep is a little bit better than it was. Notes some problems intermittently with memory and will have difficult time remembering passwords and sometimes will say the wrong words. Does report intermittent crying spells and frequently feeling guilty and saying she sorry that even if she did not necessarily do something but she needs to be sorry for. Notes frequent problems with stress eating as well. Does have times when she enjoys things, other times when there is nothing she is enjoying, today is looking forward to the [employer], also intermittently does well with concentration but other times has significant difficulty, a lot of it depends on mood and interest. Presently denying SI, HI, no AH/VH. No symptoms consistent with merry. In regards to anxiety she reports its been really rough lately. She notes a lot of social anxiety and has a hard time talking with groups, notes that she was in bowling weeks from the age of 4 until she was 15 years old and would just sit there not talk to anyone. Also finds it difficult to be with somebody one-on-one as well as this gives her anxiety. Additionally notes a lot of anxiety surrounding family health problems and finances. Notes panic attacks in addition that will lead to her shutting down, hyperventilating, heart racing, feeling overwhelmed and if she is unable to remove herself from the situation she has a tendency to have nonepileptic seizures and has had to go to the hospital for that multiple times. In regards to PTSD she notes that there were family medical problems in her past that she has PTSD from, she will avoid talking about family medical issues and will sometimes get sleep problems if this is brought up but was somewhat vague otherwise Current psychiatric medications: Has been on Cymbalta for several months, on 20 mg twice daily, BuSpar 30 mg twice daily, hydroxyzine as needed. Also takes gabapentin 300 mg nightly and gabapentin 100 mg daily as well as Topamax 100 twice daily for headaches Side effect concerns: Notes she has some problems with her hand shaking, thinks that this may be associated with BuSpar but unclear Past psychiatric treatment Hx: -First age experiencing symptoms: Noticed for symptoms around 2008 when she was 10, father lost his job and they had to move -Previous diagnoses: MDD, SIMÓN, PTSD, ?ADHD -Psychiatrist: Has been following with Dr. Veronica Sousa at [facility] and is followed with her for multiple years -Therapist: Just now getting back with therapist at [facility], had not followed with one for 5 months which contributed to worsening symptoms but is recently reestablished -Psychiatric hospitalizations: Notes 3 hospitalizations, first 1 was around 2014 after a suicide attempt via overdose with pills. She was hospitalized in [facility], hospitalized again at [facility] in 2018 and reports they were primarily adjusting her medications. Most recently hospitalized at [facility] in October 2019 around the time of COVID and lockdown as this was very difficult for her. Has also participated in the IOP program in 2019 and found it helpful but again decompensated with COVID and ended up hospitalized -Suicide attempts: Attempted to overdose x 1 and ended up hospitalized around 2014 -NSSI: No -Medication trials: Had gene test but does not have the results with her. Does note medications she has tried are zoloft, seroquel, klonopin, prozac, effexor, abilify, amitriptyline. These medications either were not helpful or she had side effects but does not remember which ones did what. Was on Prozac the longest but it stopped working which is why she was transition to Cymbalta -ECT or TMS?: No Medical Hx: -Medical problems: Fibromyalgia, chronic fatigue -Surgeries: Hx tonsillectomy, wisdom teeth, gallbladder removed 2022, [facility] when she was young for surgery for plates in hips due to abnormal leg alignment then surgery again in 2004 to take the plates back out -Allergies: Azithromycin caused diarrhea, one of the migraine injectables caused a rash but she is not sure which one, also felt dizzy and sick with sumatriptan -Medications: See home med list Substance use Hx: -Alcohol: Doesn't drink -Drugs: Occasional use of THC Gummies to help with anxiety and help her sleep -Rehab: Denies -Tobacco use: Denies Family Hx: -Mental illness: Both grandmothers with depression, mother with anxiety depression on Zoloft and dad with depression on Cymbalta, additionally dad was diagnosed with conversion disorder in 2012 -Suicide attempts or completions: Maternal grandmother attempted suicide when patient's mother was 19 and she did complete suicide. Reportedly she was very depressed due to health problems. Paternal grandmother attempted suicide and was hospitalized but did not complete suicide -Substance Use: No -General medical conditions: grandfather after a heart attack, grandma with Ogemaw's disease and alzheimers, mom with heart issues but she was not sure what issues, mom with kidney stones, father with Ogemaw's disease, also diagnosed with conversion disorder August 04, 2012 when he woke up with difficulty talking but was negative for stroke, symptoms improved with therapy and no underlying etiology was able to be identified Psychosocial: -Born/raised: Born in [place] and moved to [place] shortly after because her father's family is here -Childhood: Father lost job in 2008 so they had to sell their house and it was years before they were able to buy another 1, lived in a rental in the interim, also family health problems including father with conversion disorder in 2011 -Parents: Both still living, lives with parents, since father's diagnosis with Ogemaw's disease and has been very difficult due to angry outbursts and irritability -Siblings: Has an older brother who is 45 and a sister who is 43 who mother had adopted with her ex-. Patient does not have a close relationship with either of them but does have a nephew who is 19 years old who moved to [place] and is an EMT and has been supportive of her. She notes her sister lives in [place] but is moving out June 03 to become a nomad in [place] -Current living situation and location: Lives in [place] with her parents and 3 dogs, previously tried to move out in 2022 and lived with her ex-boyfriend for 3 months but that did not go well and she moved back in with her parents -Marital status: Single -Children: None -If female, on control or plans to get ?: On control and no plans to get BC -Support system: Mother supportive, has online friends as well, also notes nephew who is 19 years old has been supportive and they have been talking more frequently since he moved to [place] -Highest level of education: Has completed some college, will go for semester and then take time off for her health and has done this several times, ultimately would like to go back but has been off for 2 to 3 years at present. -Employment hx/Income: Notes she has never had a job, she has been on disability since 2018 for her depression and anxiety -Temple affiliation: No - hx: No -Access to guns: No -Legal problems: No -Hx of abuse: No Medical ROS: General: Denies fever HENT: Denies headache EYES: Denies acute changes in vision, vision is always blurry Resp: denies shortness of breath Cardiac: Denies chest pain GI: denies changes in bowel, slightly upset stomach : Denies changes in urination MSK: Denies weakness Neuro: Denies any numbness/tingling Heme: Denies any bleeding or bruising Skin: Denies rashes Psychiatric: As above Exam () Mental Status Exam- Psych () Appearance casually dressed, obese and slumped posture Attitude cooperative and calm Activity/Motor Behavior fidgeting Speech regular rate and regular volume Mood anxious Affect restricted Thought Process linear and logical Thought Content no delusions and no hallucinations Suicidal Ideation none Homicidal Ideation none Attention intact Concentration intact Sensorium/Orientation awake and alert Memory/Cognition intact Insight questionable Judgement questionable Assessment & Plan () Assessment & Plan (1) MDD (major depressive disorder), recurrent episode, severe: Plan: Patient with depressed mood, intermittent difficulty with sleeping and concentration, fatigue, excessive guilt. She is on BuSpar 3 mg twice daily and duloxetine 20 mg twice daily, will increase duloxetine to 30 mg twice daily and encourage active participation in our program which I think will be most helpful for her and her symptoms given a lot of her situational stressors on top of her baseline anxiety and depression. Reportedly Consuelo has had gene testing done for medications, encouraged her to bring this in so can be on file. She does report having lab work checked at an outside hospital and will be following up with her primary care physician in [place] later this month for that (2) SIMÓN (generalized anxiety disorder): Plan: Reports pervasive anxiety both social but also anxiety over her health, family's health, finances, loss of discrete episodes where she will shut down feel very overwhelmed especially in social situations and will have to remove herself or she will have nonepileptic seizures and has been to the hospital multiple times for this. Will continue BuSpar and uptitrate duloxetine to 30 mg twice daily. Continue hydroxyzine as needed Medications: New duloxetine 30 mg PO BID 60 caps 0RF 30 days Changed From buspirone 30 mg PO DAILY To buspirone 30 mg PO BID 60 tabs 0RF 30 days Discontinued acetaminophen Discontinued Reason: Completed therapy 1,000 mg (2 x 500 mg) PO Q6H PRN 20 tabs 0RF pain Plan Detail Assessment: The patient will begin IOP in Behavioral Health at [facility]. The program's structure, support, education, and therapy aim to prevent deterioration of symptoms and avoid the need for PHP or inpatient hospitalization. I have a reasonable expectation that the patient will make practical improvements in their presenting symptoms and will be discharged to a lower level of care. Charges/Coding Behavior Health Behavior Health Psychiatric Evaluation: [id number] Psych Diag Exam w/ Medical Services
--- NOTE | 2025-05-17 09:10 | BH.DR.ITP ---
Initial Treatment Plan Patient Information Visit Information: ADMISSION DATE: EXPECTED LOS: 6-8 weeks Diagnoses:: MDD, SIMÓN Problems/Symptoms Problem #1:: MDD Symptom:: depressed mood, fatigue, poor sleep and focus Problem #2:: SIMÓN Symptom:: anxiety about health, family's health, finances and most aspects of life
[2025-05-17 09:37] VITALS: BP 153/97; PULSE 103
--- NOTE | 2025-05-17 10:10 | BH.SGPN.GN ---
Behaviors/Verbalizations/Mental Status: [] Eye contact is good. Motor activity is appropriate. Appearance is casual. Speech is Appropriate. Mood is euthymic. Affect is congruent. Thoughts are linear and logical. No evidence of psychosis. Client Response/Progress/Benefit: [] Pt engaged participant AEB listening to others, engaging in activity, and providing feedback at times. Attentive during psychoeducation and provided insight into obstacles that impede mental wellness. Pt shared with group current mental health reality and desired mental health reality. Stating they would like to living life without depression and anxiety dominating all emotions. Identified barriers to desired reality include: anxiety and procrastination. Benefited from taking look at current mental health state and obstacles for progress. Pt to continue IOP tx to increase overall fucntioning, reduce reliance on maladaptive coping, and prevent decompensation. Narrative Note: []
--- NOTE | 2025-05-17 11:10 | BH.SGPN.GN ---
Behaviors/Verbalizations/Mental Status: [] Eye contact is good. Motor activity is appropriate. Appearance is casual. Speech is Appropriate. Mood is euthymic. Affect is congruent. Thoughts are linear and logical. No evidence of psychosis. Client Response/Progress/Benefit: [] Pt was an engaged participant in group discussion and activity. Worked with group to identify strategies to help overcome barriers and obstacles to desired reality. Group developed strategies for the common barriers. Identified personal barriers to desired reality and choose one obstacle to work. Pt stated they want to utilize strategy of going to social event 1x every two weeks to combat barriers. Pt seemed to benefit from increased repertoire of healthy coping skills/strategies to overcome common barriers to moving forward. Pt is to continue IOP to increase healthy coping skills, challenge distortions, and increase overall functioning. Narrative Note: [] Behaviors/Verbalizations/Mental Status: [] Eye contact is good. Motor activity is appropriate. Appearance is casual. Speech is Appropriate. Mood is euthymic. Affect is congruent. Thoughts are linear and logical. No evidence of psychosis. Client Response/Progress/Benefit: [] Pt was an engaged participant in group discussion and activity. Worked with group to identify strategies to help overcome barriers and obstacles to desired reality. Group developed strategies for the common barriers. Identified personal barriers to desired reality and choose one obstacle to work. Pt stated they want to utilize strategy of going to social event 1x every two weeks to combat barriers. Pt seemed to benefit from increased repertoire of healthy coping skills/strategies to overcome common barriers to moving forward. Pt is to continue IOP to increase healthy coping skills, challenge distortions, and increase overall functioning. Narrative Note: []
--- NOTE | 2025-05-22 09:00 | BH.SGPN.GN ---
Behaviors/Verbalizations/Mental Status: [] Pt alert and oriented, Casually dressed and groomed. Eye contact good. Motor activity appropriate. Speech within normal limits. Affect congruent, mood anxious. Thoughts linear, logical, no signs of hallucinations or delusions. Reviewed pt?s symptom tracker, 0/5 with 5 being severe for risk for suicidal ideation, indicates a 0/5 for plan, and intent to kill self. Pt does not appear to be imminent risk to harm self.05/22/25. Client Response/Progress/Benefit: []Pt was an active participant in group discussions. Attentive. Per patients daily symptom tracker, pt indicates a 1/5 for depression and a 2/5 for anxiety, with 5 being severe. Pt shared their mental health positives as being more social this week, going out to the movies with their mother last weekend, and then going out with a friend later in the week. Pt stated that this was an improvement as they struggle with social anxiety, and do not typically make plans with friends. Pt reports stressor as being tired. Pt was supportive and attentive to others in the group. Pt seemed to benefit from support from peers. Will continue IOP tx to promote healthy coping mechanisms, improve self confidence, and prevent decompensation.
--- NOTE | 2025-05-22 10:15 | BH.SGPN.GN ---
Behaviors/Verbalizations/Mental Status: [] Client alert and oriented, casually dressed and groomed. Eye contact good. Motor activity appropriate. Speech within normal limits. Affect congruent, mood anxious. Thoughts linear, logical, no signs of hallucinations or delusions. Client Response/Progress/Benefit: [] Pt engaged in session AEB client listening attentively to peers and providing input. Attentive and contributed to discussion as group worked on defining self-forgiveness and identifying mental health benefit. Identified benefits as: reduce guilt/shame, increase self-confidence, decrease negative self-talk, healthier relationships, ect. ?Worked in small groups to identify factors that can make self-forgiveness difficult. Pt identified a personal barrier to self-forgiveness. Benefited from increased education on self-forgiveness, benefits, and what effects it. Pt will continue IOP tx to decrease anxious avoidance, reinforce healthy coping skills, and prevent decompensation.
--- NOTE | 2025-05-22 13:12 | BH.MDN ---
Multi-Disciplinary Note Note 45-min Individual: Time Started:: 11:15 Date: 05/22/25 Purpose of session/treatment goals addressed:: The purpose of this session was to address current stressors, symptoms, and use of coping skills. Another goal was to identify current stressors and goals to work on during coming sessions. Other discussions included symptom management, helpful and nonhelpful coping strategies, and triggers. Eye Contact:: Fair Motor Activity:: Appropriate Appearance:: Casual Speech:: Appropriate and Soft Mood:: Anxious Affect:: Congruent Thoughts:: Linear, Logical and No evidence of hallucinations/delusions noted Staff Interventions:: thought challenging (The therapist used active listening and open ended questions to prompt reflection and build rapport with client. Therapist used CBT techniques to help the client identify thoughts, behaviors, and feelings associated with anxiety.), CBT techniques, mindfulness skills, rapport building and goal setting Client Response:: Client responded well to session, open to meeting with therapist. Client shared that she has been doing well lately, especially with improving social anxiety. She reported going out with her mom and then a friend last week, and has made plans to see her friend again this weekend. She reported feeling anxious about socializing but stated that it went better than she thought, and that she had a lot of fun. Client shared that she feels that her communication with her mother has improved greatly, which has lead to her being more open, which she has struggled with in the past. She stated that she has not been picking fights with her dad as often. Client stated that this is because she is gaining more knowledge about his illness and how to deal with them. Client connected with thought challenging, expressing that she understands the need for exposure to difficult situations, and finding new coping mechanisms, and managing anxious thoughts. Client reported feeling anxious about going to a loud public place with her father later in the day, stating that she does not usually do well in loud places. She was able to come up with some coping mechanisms to utilize if she felt anxious, and expressed good insight into her triggers. Client reported that in the past, she has found reaching out for support, being more open with her feelings, and standing up for herself as helpful practices in improving her mental health. She expressed that her main goal is to learn better coping skills for the upcoming holidays which she has some trauma associated with. Risks/Concerns:: Client reports some suicidal ideation, but denies any plan, and intent. Client does not appear to be in imminent risk of harming self as of 05/22/25. Progress Toward Goals/Plan:: Client has demonstrated good insight into triggers and has been able to identify positive progress that she has made, especially socially. Client has been utilizing coping skills that she has learned and reports that they have been helpful in reducing her anxiety. Client reports better communication at home and has been actively working on decreasing isolation when anxious. Client continues to struggle with anxiety symptoms, stress, and negative core beliefs. Client will continue IOP to promote gains, prevent further decompensation, and increase coping skills. Time Stopped:: 12:00
--- NOTE | 2025-05-24 08:30 | BH.COMM ---
Communication Note Communication with Client Communication Note: Pt called off ill
--- NOTE | 2025-05-27 08:30 | BH.COMM ---
Communication Note Communication with Client Communication Note: Pt called in today to let us know that she has COVID and will be for at least the next week. She will keep staff updated.
--- NOTE | 2025-06-03 08:39 | BH.COMM ---
Communication Note Communication with Client Communication Note: Pt reports that she is feeling better. No fever. Has appointment with PCP today. Hoping to return to IOP this week.
--- NOTE | 2025-06-10 08:40 | BH.COMM ---
Communication Note Communication with Client Communication Note: Cancelled again today. She reports she feels as if she is close to baseline. Plans to return on 06/10/25
--- NOTE | 2025-06-10 09:00 | BH.SGPN.GN ---
Behaviors/Verbalizations/Mental Status: [] Pt alert and oriented, Casually dressed and groomed. Eye contact fair. Motor activity appropriate. Speech within normal limits. Affect congruent, mood calm. Thoughts linear, logical, no signs of hallucinations or delusions. Reviewed pt?s symptom tracker today, denies suicidal ideation, plan, and intent.06/10/25. Client Response/Progress/Benefit: []Pt was an active participant in group discussions. Attentive. Per patients daily symptom tracker, pt indicates a 1/5 for depression and a 3/5 for anxiety, with 5 being severe. Pt's mental health win was being able to come back to group after being out for two weeks with Covid 19. Pt reports that they are feeling better, and have also been put on a new medication for their heart which seems to be helping. Pt's other mental health win was meeting up with an acquaintance for a few dates over the weekend. Pt reported their stressor as struggling with over thinking the new relationship. Pt was supportive and attentive to others in the group. Pt seemed to benefit from support from peers. Will continue IOP tx to promote healthy coping mechanisms, reduce negative thinking patterns, and prevent decompensation.
--- NOTE | 2025-06-10 11:10 | BH.SGPN.GN ---
Behaviors/Verbalizations/Mental Status: []Pt alert and oriented, casually dressed and groomed. Eye contact good. Motor activity appropriate. Speech within normal limits. Affect congruent, mood content. Thoughts linear, logical, no signs of hallucinations or delusions. Client Response/Progress/Benefit: [] Pt was an active participant during activity and discussion. Pt did well to remain attentive and participate as group worked on identifying characteristics and benefits of adopting a growth mindset. Worked with fellow participants in reframing the example fixed thoughts into growth mindset thoughts. Pt worked on changing own fixed thought. Pt?s reframed thought was ?I?m capable of doing things.? Pt attentive during discussion about different strategies that can help with fostering a growth mindset. Pt appeared to benefit from challenging own thoughts and engaging in the activity. Pt will continue IOP tx to increase distress tolerance skills, improve self-compassion, and reduce avoidance. Narrative Note: []
--- NOTE | 2025-06-10 14:19 | BH.MDN ---
Multi-Disciplinary Note Note 45-min Individual: Time Started:: 10:15 Date: 06/10/25 Purpose of session/treatment goals addressed:: The purpose of this session was to address current stressors, symptoms, and use of coping skills. Another goal was to identify current stressors and goals to work on during coming sessions. Other discussions included symptom management, helpful and nonhelpful coping strategies, and triggers. Eye Contact:: Fair Motor Activity:: Appropriate Appearance:: Casual Speech:: Appropriate Mood:: Euthymic Affect:: Congruent Thoughts:: Linear, Logical and No evidence of hallucinations/delusions noted Staff Interventions:: thought challenging, CBT techniques (The therapist used active listening and open ended questions to prompt reflection and build rapport with client. Therapist used CBT techniques to help the client identify thoughts, behaviors, and feelings associated with anxiety.), mindfulness skills and rapport building Client Response:: Client responded well to session, open to meeting with therapist. Client shared that she has been doing well lately, especially with improving social anxiety. She reported meeting up with a friend she met on Facebook this week who seems interested in pursuing a relationship with her. She reported feeling anxious about starting a relationship, as she has had bad experiences with past partners. Client expressed some frustration at this new partner for not communicating clearly, and giving mixed messages about if she wants to be in a romantic relationship or just stay friends. This has caused the client some anxiety, stating that she has been over thinking everything she says, and wondering if this partner is just leading her on. Client connected with thought challenging, as the client and therapist worked through logical and illogical relationship thoughts. Client shared that she has been put on medication for her heart, as she had been experiencing symptoms such as racing heart. She reports that so far, this has made her feel much better in combination with her antidepressants. Client connected with the importance of taking care of her physical health, stating that she has been drinking more water, being more proactive about cleaning her room, and making sure that she is taking her medication. The client also reported not feeling the need to turn to food as much in stressful situations. Client was aware that this could be due to medication changes suppressing her appetite, but is also finding more appropriate coping mechanisms. Client is continuing to work on exposure goals around the holidays by not avoiding the [place] section in stores, and suggesting that her and her mom go to [place] later this month. The client reports success in these exposure exercises, stating that she does not feel as panicked as she used to. Risks/Concerns:: Client denies suicidal ideation, plan, and intent. Client does not appear to be in imminent risk of harming self as of 06/10/25. Progress Toward Goals/Plan:: Client has demonstrated good insight into triggers and has been able to identify positive progress that she has made, especially in managing panic symptoms around holiday triggers. Client has been utilizing coping skills that she has learned and reports that they have been helpful in reducing her anxiety. Client reports better communication at home and has been actively working on decreasing isolation when anxious. Client continues to struggle with anxiety symptoms, stress, and negative core beliefs. Client will continue IOP to promote gains, prevent further decompensation, and increase coping skills. Time Stopped:: 11:05
--- NOTE | 2025-07-19 10:43 | BH.TPR ---
Treatment Plan Review Demographics Date of Admission:: 05/13/25 Date of Treatment Plan Review:: 06/10/25 Admitting Diagnoses:: Generalized Anxiety Disorder, Major Depressive Disorder Current Diagnoses:: Generalized Anxiety Disorder, Major Depressive Disorder Patient Status Patient's Response to Treatment:: Pt has responded well to treatment AEB despite struggling with consistency of attendance to IOP due to physical illness. Pt reported use of coping mechanisms learned in the program outside of the treatment environment, increasing socialization, mindfulness, and continuing to work on exposure goals. Pt is open and responds well during sessions and reports that she has made progress with her goals and has benefited from group therapy. Status of Current Problems and Symptoms: Client reported struggling with negative self-talk and overthinking this past week. However she reports being able to combat her negative thoughts by utilizing techniques learned in sessions such as looking for the facts. Client noted progress in thought stopping, stating that she was able to identify anxious thoughts and combat them. Client stated that she would ruminate on thoughts before treatment, but has been able to combat her overthinking by using thought challenging techniques. Client also reported a decrease in social anxiety, stating that she has been meeting with a potential partner multiple times a week, and spending more time outside of her house. Client still reports struggling with the upcoming holidays stating that she is anxious for her mom to begin putting out decorations, as they may trigger her. Client was able recognize that this may trigger her, and came up with some coping skills to use in case of anxiety. Client reports overall doing well and has shown improvement in overall mood, functioning, and social anxiety. Client's mental health symptoms have improved when compared to admission scores based on daily mood tracker scores. Progress Problem #1: Problem Name:: Depression Status of Goals:: Obj 1 - Ongoing work encouraged. Client has been able to identify depressive symptoms and triggers, and challenge them by utilizing coping skills such as thought challenging, mindfulness, working on exposure goals, and decreasing isolation. Client has reported a decrease in depressive symptoms per DSM-5 cross cutting measures. Client has been able to improve socialization by reaching out to supports and utilizing opposite action when wanting to isolate. Team Recommendations:: Team recommends continued goals and objectives to to reinforce the healthy coping mechanisms learned and prevent decompensation. Problem #2: Problem Name:: Anxiety Status of Goals:: Obj 1 - Met. Client has demonstrated use of coping skills in anxiety provoking situations and reports them to be helpful. Client can identify and implement healthy calming skills such as thought challenging, mindfulness, and looking at the facts. Client has reduced anxiety per her scores on the DSM-5 cross cutting measure. Obj 2 - Met. Client has been able to more easily identify anxiety triggers and apply healthy coping mechanisms instead of getting overwhelmed by anxious thoughts and feelings. Team Recommendations:: Team recommends continued goals and objectives to to reinforce the healthy coping mechanisms learned and prevent decompensation.
== END 2025-06-14 23:59 ==
LOC: BHIOP 08:07
PROVIDERS: PCP Family Medicine; Referring Provider Internal Medicine; Visit Provider Internal Medicine
DX: F41.1 Generalized anxiety disorder (principal); F32.9 Major depressive disorder, single episode, unspecified
CPT/HCPCS: S9480; 90834; 90853

== ENCOUNTER 2025-06-17 08:33 | Outpatient (RCR) | payer MEDICARE, MEDICAID, SELFPAY ==
--- NOTE | 2025-06-17 09:00 | BH.SGPN.GN ---
Behaviors/Verbalizations/Mental Status: [] Eye contact is good. Motor activity is appropriate. Appearance is casual. Speech is Appropriate. Mood is anxious. Affect is congruent. Thoughts are linear and logical. No evidence of psychosis. Reviewed daily check in sheet and no reports of suicidal ideations or intent. Client Response/Progress/Benefit: [] Pt participated at times during the group discussions. Attentive. Daily symptom tracker notes 2/5 for anxiety and 1/5 for depression. Able to identify mental health wins over the weekend. Utilizing proactive stress management strategies. Improved self-awareness. Several psychosocial stressors and while anxious is engaged rather than avoidant. Progress noted. Benefited from group support, encouragement, and feedback. Will continue in IOP to prevent decompensation, stabilize mood, and improve functioning. Narrative Note: []
--- NOTE | 2025-06-17 10:05 | BH.SGPN.GN ---
Behaviors/Verbalizations/Mental Status: [] Eye contact is good. Motor activity is appropriate. Appearance is casual. Speech is Appropriate. Mood is anxious. Affect is congruent. Thoughts are linear and logical. No evidence of psychosis. Client Response/Progress/Benefit: [] Pt participated during the group discussion, providing input and remaining attentive during psychoeducation. Participated in experiential activity. Pt contributed during interactive discussion on the consequences of unhealthy expression of emotions. Worked with group to identify several consequences which included hurting relationships and isolating oneself. Contributing during interactive discussion on common potholes to effectively communicating such as; avoidance, isolation, bottling up emotions, yelling, and several more. Pt was able to relate and make connections between the experiential activity and the overall topic, managing emotions through activity. Benefited from increased awareness of how stress and emotions can impact one's ability to communicate. Will continue in IOP to prevent decompensation, improve daily functioning, and increase the use of healthy coping skills Narrative Note: []
--- NOTE | 2025-06-17 11:10 | BH.SGPN.GN ---
Behaviors/Verbalizations/Mental Status: []Client alert and oriented, casually dressed and groomed. Eye contact good. Motor activity appropriate. Speech within normal limits. Affect congruent, mood anxious and dysthymic. Thoughts linear, logical, no signs of hallucinations or delusions. Client Response/Progress/Benefit: []Client engaged in session AEB client listening attentively to peers and providing input. Attentive during psychoeducation on 4 zones of regulation. Pt able to identify feelings and behaviors for each zone. Pt identified coping skills one can use to support self in each zone. Pt stated belief that pt is in the yellow zone today. Pt reports plan to discuss her feelings with healthy support today. Benefited from increased education on zones of regulation or stages of alertness for emotions and healthy coping skills to use for each zone. Pt will continue IOP tx to increase self-awareness, improve emotional regulation skills, and increase ability to function. Narrative Note: []
--- NOTE | 2025-06-21 09:00 | BH.SGPN.GN ---
Behaviors/Verbalizations/Mental Status: [] Eye contact is good. Motor activity is appropriate. Appearance is casual. Speech is Appropriate. Mood is euthymic. Affect is full. Thoughts are linear and logical. No evidence of psychosis. Reviewed daily check in sheet and no reports of suicidal ideations or intent. Client Response/Progress/Benefit: [] Pt participated when prompted. Attentive. Daily symptom tracker notes 08/19 for depression and anxiety. ? I?ve been pretty productive?. She has increased her social engagement through online ?tournaments?. Proud of herself for utilizing skills to keep her from getting too stressed or anxious. She also enjoys these online tournaments so it has helped increased motivation and daily purpose. He medical issues and physical limitations continues to be primary stressor and obstacle. She reports struggling to complete basic tasks such as cleaning her room. Gets exhausted, dizzy, and sweaty which often requires her to rest after only 5 minutes of work. Progress noted in certain areas stating she feels ? hopeful?. Benefited from group support, encouragement, and feedback. Will continue in IOP to prevent decompensation, stabilize anxiety, and improve functioning. Narrative Note: []
--- NOTE | 2025-06-21 10:10 | BH.SGPN.GN ---
Behaviors/Verbalizations/Mental Status: [] Motor activity is appropriate. Appearance is casual. Speech is Appropriate. Eye contact avoidant. Mood is euthymic. Affect is full. Thoughts are linear and logical. No evidence of psychosis. Client Response/Progress/Benefit: [] Pt was an engaged participant AEB listening attentively to others, taking notes, and providing feedback in small group discussions. Attentive during psychoeducation AEB by note taking and providing some input. Pt worked along with peers in small groups to define inappropriate guilt and appropriate guilt. Interactive discussion on examples of both inappropriate and appropriate guilt. Pt able to connect impact inappropriate guilt can have on MH. Benefited from increased awareness of guilt and the differences between appropriate and inappropriate guilt. Pt to continue IOP tx to prevent decompensation, gain healthy coping skills, and increase self worth. Narrative Note: []
--- NOTE | 2025-06-21 11:10 | BH.SGPN.GN ---
Behaviors/Verbalizations/Mental Status: [] Pt alert and oriented, casually dressed and groomed. Eye contact avoidant. Motor activity appropriate. Speech within normal limits. Affect congruent, mood euthymic. Thoughts linear, logical, no signs of hallucinations or delusions. Client Response/Progress/Benefit: [] Pt was an engaged participant AEB listening attentively to others and providing input throughout group. Pt worked within their small group to identify strategies to manage inappropriate guilt. Identified a personal example of inappropriate guilt as ?feeling guilt for telling aunt how she feels.? Pt wants to work on combatting inappropriate guilt by ?to challenge thinking that leads to guilt? Pt seemed to benefit from learning about strategies to manage appropriate and inappropriate guilt. Pt to continue IOP tx to prevent decompensation, gain healthy coping skills, and increase positive thought patterns. Narrative Note: []
--- NOTE | 2025-06-28 09:00 | BH.SGPN.GN ---
Behaviors/Verbalizations/Mental Status: [] Pt alert and oriented, Casually dressed and groomed. Eye contact good. Motor activity appropriate. Speech within normal limits. Affect congruent, mood calm. Thoughts linear, logical, no signs of hallucinations or delusions. Reviewed pt?s symptom tracker today, denies suicidal ideation, plan, and intent.06/28/25 Client Response/Progress/Benefit: []Pt was an active participant in group discussions. Attentive. Per patients daily symptom tracker, pt indicates a 1/5 for depression and a 2/5 for anxiety, with 5 being severe. Pt's mental health positive was finishing cleaning her room, which she had been working on for the past few weeks. Pt stated that despite having to take things slow due to some physical limitations, she is happy that she was able to get it done, and accept help from her father. Her other mental health win was using thought challenging when she began to over think about her relationship with a potential partner. Client stated that she was able to remind herself to think logically and look at the facts. Pt's stressor is feeling anxious about meeting up with her potential partner today, stating that she is not always comfortable in social situations. Despite this, Pt was also feeling excited. Pt was supportive and attentive to others in the group. Pt seemed to benefit from support from peers. Will continue IOP tx to promote healthy coping mechanisms, decrease negative thinking patterns, and prevent decompensation.
--- NOTE | 2025-06-28 10:10 | BH.SGPN.GN ---
Behaviors/Verbalizations/Mental Status: [] Eye contact is good. Motor activity is appropriate. Appearance is casual. Speech is Appropriate. Mood is anxious. Affect is congruent. Thoughts are linear and logical. No evidence of psychosis. Client Response/Progress/Benefit: [] Pt was an active participant in group discussions. Attentive during psychoeducation. Contributed during interactive discussions in which peers attempted to define crisis. Group identified examples of crisis. Group also worked together to identify warning signs and unhealthy responses to crisis which included impulsivity, isolation, significant sleep changes, irrational thoughts/behaviors, and suicidal thoughts. Pt identified top 3 personal warning signs. Benefited from increased understanding of crisis and awareness of personal responses to crisis. Pt will continue IOP tx to increase distress tolerance skills, reduce negative thinking patterns, and reduce use of unhealthy coping skills. Narrative Note: []
--- NOTE | 2025-06-28 11:07 | PCM.BH.PN_ITS ---
Intake Vital Signs 05/17/25 09:37 06/28/25 11:07 Height 1.68 m 1.68 m Weight: 127.006 kg BP 153/97 H Pulse 103 H BH Intake Visit Reasons: f/u MDD rec sev Allergies gluten Allergy (Verified 05/17/25 09:29) Diarrhea milk (dairy) Adverse Reaction (Mild, Verified 05/17/25 09:29) INDEGESTION
--- NOTE | 2025-06-28 11:07 | PCM.BH.PN ---
Intake Vital Signs 05/17/25 09:37 06/28/25 11:07 Height 1.68 m 1.68 m Weight: 127.006 kg BP 153/97 H Pulse 103 H Intake Visit Reasons: f/u MDD rec sev Allergies gluten Allergy (Verified 05/17/25 09:29) Diarrhea milk (dairy) Adverse Reaction (Mild, Verified 05/17/25 09:29) INDEGESTION azithromycin Adverse Reaction (Verified 05/17/25 09:29) Diarrhea Medications ?Medication ?Instructions ?Recorded ?Confirmed ?Type ibuprofen 200 mg tablet 600 - 800 mg PO Q6H PRN PRN Pain 11/03/18 05/17/25 History ondansetron 4 mg disintegrating 4 mg PO Q8H PRN nausea and 07/19/22 05/17/25 Rx tablet vomiting #10 tabs hydroxyzine pamoate 25 mg capsule 25 - 75 mg PO PRN PRN Anxiety 09/14/22 05/17/25 History rimegepant 75 mg disintegrating 75 mg PO PRN PRN MIGRAINES 09/14/22 05/17/25 History tablet (Nurtec ODT) meclizine 25 mg tablet 25 mg PO DAILY PRN dizziness 10/20/23 05/17/25 History pantoprazole 40 mg tablet,delayed 40 mg PO DAILY #30 tabs 12/22/23 05/17/25 Rx release (Protonix) levonorgestrel 0.15 mg-ethinyl 1 tab PO DAILY 02/20/24 05/17/25 History estradiol 30 mcg tablets,3 mos pack(91) (Macho) topiramate 100 mg tablet 100 mg PO BID 02/20/24 05/17/25 History duloxetine 30 mg capsule,delayed 30 mg PO BID 30 days #60 caps 06/28/25 Rx release sprinkle propranolol 10 mg tablet 10 mg PO TID 06/28/25 06/28/25 History HPI () History of Present Illness History provided by: patient Chief complaint: Follow-up MDD HPI: placed on propranolol TID 10, off buspar couple weeks, off gabapentin as well and sleeping well, cymbalta 30mg BID, No SI, working on healthy sleep -Current psychiatric medications: Propranolol 10 mg 3 times daily, Cymbalta 30 mg twice daily -SUBJECTVE: Reports feeling better overall, was placed on propranolol 3 times daily and came off of BuSpar and gabapentin several weeks ago and has been feeling like mood is better and is sleeping better. No SI. No other new or acute complaints. Does think the increased dose of Cymbalta has been helpful as well Is tolerating medications without reported side effects Exam Mental Status Exam- Psych () Appearance casually dressed and obese Attitude cooperative and calm Activity/Motor Behavior MSE activity/motor behavior finding no adventitious movements Speech regular rate and regular volume Mood euythmic Affect full range Thought Process linear and logical Thought Content no delusions and no hallucinations Suicidal Ideation none Homicidal Ideation none Attention intact Concentration intact Sensorium/Orientation awake and alert Memory/Cognition intact Insight fair Judgement fair Assessment & Plan () Assessment & Plan (1) MDD (major depressive disorder), recurrent episode, severe: Plan: Reports doing much better on increased dose of Cymbalta as well as propranolol 3 times daily(she believes this was 10 mg) started by another provider, she is off of gabapentin and BuSpar and is doing well. Will continue current medications. No new or acute complaints at time of evaluation Medications: Refilled duloxetine 30 mg PO BID 60 caps 1RF 30 days Discontinued buspirone Discontinued Reason: MD Ordered 30 mg PO BID 60 tabs 0RF 30 days Charges/Coding Behavior Health Behavior Health EST Pt E/M: 37503 Est Pt Level IV
--- NOTE | 2025-06-28 13:05 | BH.MDN ---
Multi-Disciplinary Note Note 45-min Individual: Time Started:: 11:15 Date: 06/26/25 Purpose of session/treatment goals addressed:: The purpose of this session was to address current stressors, symptoms, and use of coping skills. Another goal was to identify current stressors and goals to work on during coming sessions. Other discussions included symptom management, helpful and nonhelpful coping strategies, and triggers. Eye Contact:: Good Motor Activity:: Appropriate Appearance:: Casual Speech:: Appropriate Mood:: Euthymic Affect:: Congruent Thoughts:: Linear, Logical and No evidence of hallucinations/delusions noted Staff Interventions:: thought challenging (Therapist utilized thought challening techniques to help the client combat overthinking and negative thoughts. ), CBT techniques (Therapist used CBT techniques to help client understand how her negative thoughts affect her behavior), mindfulness skills and rapport building Client Response:: Client was open and responsive during the session. Client shared that she has been doing well, despite having some physical health symptoms the past few weeks. Client has been working for the past few weeks on cleaning her room, which she reports has been going well, and has made her feel better. The client states that she is still trying to find a happy medium of activity so that she can be productive, but not overdo it and trigger a flare up. Client was able to come up with some ways that she could pace herself, such as doing one chore at a time, and doing chores that do not require bending over, as she gets dizzy. The client reports that being able to be productive is good for her mental health, but she does feel guilty when she is unable to do chores. The client was also able to walk from the parking lot to [facility], and walk around in [facility] for most of the time that she was there. Client did use a mobility scooter after a while, but reports that she was able to walk longer than she typically can. She states that she feels this is due to her pushing herself more, and having good support from her mom and dad. Client stated that things have been going well with the girl she is talking to. She stated that communication is good, which is something that she values in the relationship, and feels that this is the healthiest potential relationship that she has had. Client reports dealing with some anxiety and overthinking regarding this girl, stating that she worries she is misreading the situation. When asked, the client was able to challenge these negative thoughts, listing realistic thoughts about the relationship and her expectations. The client stated that even though she is anxious, she is sure that the girl has similar romantic feelings, and was willing to have a conversation about the status of their relationship. Risks/Concerns:: Client denies any suicidal ideation, plan, or intent as of 06/28/25 Progress Toward Goals/Plan:: Client has made progress by challenging her negative thoughts about herself and her relationship. The client has been able to look at the facts and us logical thinking to combat overthinking in her relationship. Client was able to challenge social anxiety by meeting with new friends online and making new connections. Client continues to build a positive relationship with both of her parents, work on improving her physical health, and challenge social anxiety. Client to continue IOP to prevent decompensation, decrease negative thought patterns, and increase coping mechanisms. Time Stopped:: 12:00
--- NOTE | 2025-07-02 09:00 | BH.SGPN.GN ---
Behaviors/Verbalizations/Mental Status: [] Eye contact is good. Motor activity is appropriate. Appearance is casual. Speech is Appropriate. Mood is anxious. Affect is congruent. Thoughts are linear and logical. No evidence of psychosis. Reviewed daily check in sheet and no reports of suicidal ideations Client Response/Progress/Benefit: [] Pt participated at times. Attentive. Very brief and superficial check-in. Able to identify mental health wins as setting boundaries. Elaborated on how the boundaries set are beneficial to her mental health. Primary stressors is ongoing headache. She is concerned that this is an indicator of a possible seizure. Overall her mood is ?neutral?. Progress noted. Benefited from group support, encouragement, and feedback. Will continue in IOP to prevent decompensation, stabilize anxiety, and improve functioning Narrative Note: []
--- NOTE | 2025-07-02 10:10 | BH.SGPN.GN ---
Behaviors/Verbalizations/Mental Status: []Eye contact is good. Motor activity is appropriate. Appearance is casual. Speech is Appropriate. Mood is content. Affect is congruent. Thoughts are linear and logical. No evidence of psychosis. Client Response/Progress/Benefit: []Pt was an active participant in group discussion. Engaged and attentive during psychoeducation and interactive discussion on coping skills, why people use unhealthy coping skills, how to replace unhealthy coping skills, and internal vs external coping skills. Attentive as peers came up with list of unhealthy coping skills. Pt reported personally, they tend to either distract or avoid. Group discussed the effects of maladaptive coping skills on mental health. Benefited from increased understanding of unhealthy coping skills and the need for developing healthy internal and external coping skills. Actively participated during experiential group activity and was able to related this activity to group topic. Will continue in IOP to promote healthy thinking patterns, apply healthy coping skills, and promote mood stability. Narrative Note: []
--- NOTE | 2025-07-02 11:10 | BH.SGPN.GN ---
Behaviors/Verbalizations/Mental Status: [] Client alert and oriented, neatly dressed and groomed. Eye contact fair to good. Motor activity appropriate. Speech within normal limits. Affect congruent, mood euthymic. Thoughts linear, logical, no signs of hallucinations or delusions. Client Response/Progress/Benefit: [] Client responded well to session AEB taking notes and providing input and examples throughout. Group discussed the different categories of coping skills which included distraction, emotional release, grounding, self-love, and access to greater self, and thought challenging. Client created a coping skill menu identifying various skills to try in each category. Client?s coping skill menu included: music, poetry, stretching, saying things out lout, random acts of kindness, and cooking. Appeared to benefit from increasing repertoire of healthy coping skills. Client reports feeling less depressed, but client has yet to see consistent mood stability for over two weeks. Client will continue IOP tx to improve daily functioning, increase emotional regualton skills, and increase application of healthy coping skills. Narrative Note: []
--- NOTE | 2025-07-17 14:21 | BH.DS ---
Documented by User: Doris Elaine 07/19/25 10:42 Discharge Summary Demographics Date of Admission:: 05/13/25 Discharge Date: 07/02/25 Presenting Problems at Admission:: Client is a 25 year old female with a history of depression, anxiety, and social phobia. Client previously attended [facility] due to anxiety symptoms. Client reports a that anxiety has been worsening since 2019, due to the Covid 19 pandemic. Client shared that she experienced significant health anxiety and was afraid to leave the house. While this has lessened, the client reports that her mental and physical health have consistently worsened over the past two years, during which she took a break from college, reporting that she was failing multiple classes and felt overwhelmed. Client also cites fathers recent diagnosis of Germán's disease as a major stressor. Client endorses presence of suicidal ideation in the past week, with no apparent risk for intent or plan. Client reports somatic symptoms related to anxiety including nausea, fatigue, and tension. The client also has celiac disease and is lactose intolerant which she reports reinforces her physical symptoms as well as her anxiety. The client stated feeling frustrated with her aunt for hiding the family history of Germán's as well as irritation at her father for his angry outbursts due to [employer]. She stated that she feels as if she has to walk on egg shells around him, which upsets the client. She endorses isolation and avoidance behaviors. Client states that her symptoms are affecting daily functioning and mood. Discharge Diagnoses:: Generalized Anxiety Disorder, Major Depressive Disorder, reccurent episode, severe Reason for Discharge:: Client struggled with consistent attendance due to physical health issues, she called her behavioral health provider and stated that despite poor physical health, she had been feeling good mentally and decided to voluntarily discharge as of today. Treatment Progress During Treatment & Response: Client made progress in learning and implementing healthy coping mechanisms to combat anxious and negative thoughts. Client improved socialization, talking to new people, and decreased overall level of anxiety with social situations. Client continued to engage in exposure goals and exposure to stressors with lessened anxiety and stress. Client reported an overall increase in healthy coping mechanisms and a decrease in depressive symptoms. Issues Still to be Addressed:: Client has shown progress towards treatment goals while in [facility] as shown by her reduced DSM-5 scores for anxiety. However, client can continue to benefit from ongoing counseling to reinforce healthy coping skills such as thought challenging, self-talk, and distress tolerance. Client acknowledges that she continues to struggle with negative core beliefs that reinforce anxiety and depression. Client would like to work on further combating and replacing negative core beliefs. Client would also like to continue challenging her overthinking and reassurance seeking behaviors in her new relationship. Client was encouraged by therapist to begin working on small exposure goals to combat her social anxiety and increase resilience during the holidays. Client reported being receptive to this recommendation. Client can continue to increase social support and reducing depressive symptoms. Client is encouraged to continue working on these skills. Discharge Recommendations/Instructions:: Client was recommended to follow up with her individual therapist for continuing support after IOP. Client was also recommended to follow up with her PCP for continuity of care. Lastly, client was encouraged to continue increasing her social support and reducing social anxiety. Discharge Handout Documented by User: Allyn Babin [facility] 07/29/25 15:15 Discharge Summary Demographics Discharge Diagnoses:: F41.1 Generalized Anxiety Disorder, Major Depressive Disorder, recurrent episode, severe
== END 2025-07-09 09:32 | disposition home or self-care (01) ==
LOC: BHIOP 08:33
PROVIDERS: PCP Family Medicine; Referring Provider Internal Medicine; Visit Provider Internal Medicine
DX: F33.2 Major depressive disorder, recurrent severe without psychotic features (principal); F41.1 Generalized anxiety disorder
CPT/HCPCS: S9480; 90834; 90853

== ENCOUNTER 2025-07-03 07:26 | Emergency (ER) | payer MEDICARE, MEDICAID, SELFPAY ==
[2025-07-03 07:27] VITALS: BP 135/91; PULSE 92; RESP 14; TEMP 36.2; O2SAT 97; BMI 22.6
--- NOTE | 2025-07-03 07:45 | EX.ED.VIS.HA ---
HPI History of Present Illness Chief Complaint: Headache Informant: patient Narrative Narrative: Patient is a 25-year-old female with a history of migraines and non-epileptic seizures, presenting with a severe headache, vertigo, and tinnitus. - Reports a severe headache localized to the left side of the forehead, onset 2 days ago. - Describes headache as different from usual migraines, typically associated with non-epileptic seizures; she has had these headaches with these symptoms before, however they do not usually last 2 days like this, usually just a couple of hours. - Denies thunderclap onset. - Associated symptoms include significant vertigo, tinnitus (worse in the left ear), photophobia, nausea, and a sensation of fluttering in the chest. - Vertigo is exacerbated by bending down. - Denies syncope, emesis, speech difficulties, or comprehension issues. - Tried ibuprofen and Nurtec without relief. - Reports increased stress, a known trigger for her headaches. - No known history of cerebral aneurysms. - Under the care of a neurologist; previous MRI was unremarkable. [facility] Medical History PONV (postoperative nausea and vomiting) Post concussion syndrome Dietary restriction Leg cramps Chest pain GERD (gastroesophageal reflux disease) Migraines Seizures Allergic reaction (~10/22/22) Wears glasses Back pain Injury of head and neck Blackout History of hiatal hernia Gastric reflux Non-smoker Hip abductor tendonitis Depression Anxiety Home Medications ?Medication ?Instructions ?Recorded ?Last Taken ?Type ibuprofen 200 mg tablet 600 - 800 mg PO Q6H PRN PRN Pain 11/03/18 Unknown History ondansetron 4 mg disintegrating 4 mg PO Q8H PRN nausea and 07/19/22 Unknown Rx tablet vomiting #10 tabs hydroxyzine pamoate 25 mg capsule 25 - 75 mg PO PRN PRN Anxiety 09/14/22 Unknown History rimegepant 75 mg disintegrating 75 mg PO PRN PRN MIGRAINES 09/14/22 Unknown History tablet (Nurtec ODT) meclizine 25 mg tablet 25 mg PO DAILY PRN dizziness 10/20/23 Unknown History pantoprazole 40 mg tablet,delayed 40 mg PO DAILY #30 tabs 12/22/23 Unknown Rx release (Protonix) levonorgestrel 0.15 mg-ethinyl 1 tab PO DAILY 02/20/24 Unknown History estradiol 30 mcg tablets,3 mos pack(91) (Macho) topiramate 100 mg tablet 100 mg PO BID 02/20/24 Unknown History duloxetine 30 mg capsule,delayed 30 mg PO BID 30 days #60 caps 06/28/25 Unknown Rx release sprinkle propranolol 10 mg tablet 10 mg PO TID 06/28/25 Unknown History Allergy/AdvReac Type Severity Reaction Status Date / Time gluten Allergy Diarrhea Verified 07/03/25 07:27 milk (dairy) AdvReac Mild INDEGESTION Verified 07/03/25 07:27 azithromycin AdvReac Diarrhea Verified 07/03/25 07:27 Family History Mother Diabetes Cancer skin Thyroid disorder Father Diabetes Hypertension Surgical History History of wisdom tooth extraction History of cholecystectomy S/P cholecystectomy History of surgery on lower extremity Hx of tonsillectomy Social History Smoking Status: Never smoker alcohol intake: never ROS ROS ED Constitutional Constitutional ED: Denies chills or fever(s) Eyes Eyes: Reports blurry vision; Denies diplopia ENT ENT ED: Reports ear pain bilateral (discomfort; worse on left); Denies sore throat Cardiovascular Cardiovascular: Denies chest pain or palpitations Respiratory/Chest Respiratory/Chest: Denies cough or dyspnea Gastrointestinal Gastrointestinal: Reports nausea; Denies abdominal pain, diarrhea or vomiting Genitourinary Genitourinary ED: Denies dysuria or urinary frequency Musculoskeletal Musculoskeletal: Denies back pain or myalgias Integumentary Denies abscess or rash Neurologic Neurologic: Reports as per HPI, abnormal gait, disequilibrium and headache(s); Denies paresthesias or weakness EXAM Physical Exam Const Vital Signs: 07/03/25 07:27 Temperature 97.1 F L Temperature Source Temporal Pulse Rate 92 Respiratory Rate 14 Blood Pressure 135/91 H Blood Pressure Mean 105 Pulse Ox 97 Oxygen Delivery Method Room Air Positive well nourished, well developed and obese General Appearance ED: well developed and NAD Nutritional Appearance: obese HEENT Reports normocephalic and moist mucous membranes HEENT Narrative: TMs occluded by hard cerumen bilaterally. EACs otherwise unremarkable, no pain with manipulation of the tragus of the pinna. atraumatic Eyes PERRL, EOMs intact bilaterally and conjunctivae normal Eyes Narrative: Mild photophobia Neck no lymphadenopathy, supple and no meningeal signs Resp normal respiratory effort and clear to auscultation bilaterally GI non-tender and non-distended Palpation: soft Extremity normal to inspection and full ROM Neuro oriented x3 and CN's II-XII intact bilaterally Neuro Narrative: Normal speech no aphasia or dysarthria. No dysmetria normal mevhdp-in-fnki and pcge-mo-jjro bilaterally. NIHSS 0. Sensorium / Orientation: awake and alert Speech: speech normal Gait (Neuro): normal gait Motor Exam: strength 5/5 throughout Psych mental status grossly normal Skin Lesions: no lesions Rashes: no rashes MDM MDM MDM Narrative Medical decision making narrative: Assessment: The patient is a 25-year-old female with PMH of chronic migraines and non-epileptic seizures presenting for two days of left-sided frontal headache, vertigo, ringing in the left ear, and imbalance. Headache became severe this morning and is similar in location to prior migraines but of longer duration. Neurologic exam ([id number]-ru-gmys, [id number], speech) is normal, and otoscopy reveals occlusive cerumen bilaterally obscuring visualization of both tympanic membranes, even after reexamined after attempted irrigation. Vertigo is worst with positional changes and briefly intensified after ear irrigation, supporting a peripheral vestibular etiology rather than central pathology. Most likely diagnoses are benign paroxysmal positional vertigo of the left ear, bilateral impacted cerumen contributing to symptoms, and intractable chronic migraine without aura. Plan: - Established IV access; administered IV medications for analgesia and anti-emesis (Reglan, Benadryl). - Administered IV fluids for hydration. - Performed bilateral ear canal irrigation to remove cerumen. - Provided education on daily hydrogen peroxide/water or OTC cerumenolytic drops for one week to complete wax removal. - Discharged home in improved condition; patient voiced understanding and had no further questions. Reevaluations: - Patient re-assessed after treatment; reports feeling ?a lot better.? Vertigo transiently worsened post-irrigation then improved; neurologic status unchanged. Discharge Plan Triage Chief Complaint: Headache ED Provider: Norman,Bossman Dx/Rx/DC Orders Clinical Impression: Migraine headache without aura, Bilateral impacted cerumen, Vertigo, peripheral Instructions: Impacted Earwax Prescriptions: No Action pantoprazole [Protonix] 40 mg tablet,delayed release (DR/EC) 40 mg PO DAILY Qty: 30 6RF ibuprofen 200 MG tablet 600 - 800 mg PO Q6H PRN PRN (Reason: Pain) ondansetron 4 mg tablet,disintegrating 4 mg PO Q8H PRN (Reason: nausea and vomiting) Qty: 10 0RF hydroxyzine pamoate 25 mg capsule 25 - 75 mg PO PRN PRN (Reason: Anxiety) Patient Comments: no more than 100mg per day Nurtec ODT 75 mg tablet,disintegrating 75 mg PO PRN PRN (Reason: MIGRAINES) topiramate 100 mg tablet 100 mg PO BID levonorgestrel-ethinyl estrad [Jolessa] 0.15 mg-30 mcg (91) tablets,dose pack,3 month 1 tab PO DAILY meclizine 25 mg tablet 25 mg PO DAILY PRN (Reason: dizziness) Patient Comments: TAKE 1 TABLET BY MOUTH THREE TIMES DAILY FOR 5 DAYS propranolol 10 mg tablet 10 mg PO TID duloxetine 30 mg capsule, delayed rel sprinkle 30 mg PO BID 30 Days Qty: 60 1RF Primary Care Provider: Fani Fisher Referrals: Fani Fisher MD [Primary Care Provider, Medical] - As Needed Activity Restrictions/Additional Instructions: - Use vobv-kon-rixszjo ear-wax softening drops (or mix equal parts hydrogen peroxide and water) and place 4?5 drops in each ear once or twice daily for up to 7 days to help clear the remaining wax. Print Language: Gibralt[place] Disposition Disposition: Home, Self Care
[2025-07-03] MEDS: DiphenhydrAMINE 50 MG/ML Syringe 25 MG IV (07:57)
[2025-07-03] MEDS: 0.9% Normal Saline (1000mL) 1,000 ML 999 ML IV (07:57)
[2025-07-03 09:47] VITALS: BP 116/57; PULSE 73; RESP 18; TEMP 36.6; O2SAT 100
== END 2025-07-03 09:47 | disposition home or self-care (01) ==
PROVIDERS: Emergency Provider Emergency Medicine; PCP Family Medicine; Visit Provider Emergency Medicine
DX: G43.709 Chronic migraine without aura, not intractable, without status migrainosus (principal); H81.399 Other peripheral vertigo, unspecified ear; H61.23 Impacted cerumen, bilateral; H93.19 Tinnitus, unspecified ear; E66.9 Obesity, unspecified; Z90.49 Acquired absence of other specified parts of digestive tract; K21.9 Gastro-esophageal reflux disease without esophagitis
CPT/HCPCS: 99283; A4216